=== PATIENT | female | born 1960 | race Caucasian/White ===

== ENCOUNTER 2017-12-31 11:00 | Outpatient (RCR) | payer MEDICAID, SELFPAY ==
--- NOTE | 2017-11-04 07:33 | HP.PTEVAL ---
Patient's Visit Information PRASHANT MAZARIEGOS is a 57 year old F referred to Physical Therapy by RAVEN ASKEW with a diagnosis of L2 compression fx, C7 vertebral fx, R ilium fracture, lateral mass fx C1. Date of Evaluation: 10/24/17 Physical Therapist: Mendoza Pinto - Visit Plan Frequency: 2x /Week Duration: 4 Weeks Plan: Start with general mobility, postural strength, UE/LE strengthening in aquatic setting. Progress as tolerated. May use modalities on land if needed. - Subjective Subjective: Pt. is here today for her initial evaluation with diagnosis L2 compression fx, C7 vertebral fracture, R ilium fracture, and lateral mass fracture of C1. Pt. fell down her stairs on 07/05/17. Pt. was then in a senior care facility for ~3 months. PT. reports being in a cervical collar for most of that time. She went back home ~2 weeks ago. Pt. lives along currently. She is able to shower independently and complete all ADLs. Pt. is not completeing IADLS currently, except for just starting to do dishes. Pt. does not drive. She is R hand dominant. Pt. continues to report increased R sided cervical spine pain. She denies N/T in either UE/LEs. Pt. reports no giveout of UE/LEs. Pt. is concerned with her amount of fatigue. She reported minimal mobility while at longterm. Pt. arrives today without AD. Pt. is hopeful to reduce symptoms in order to get back to all recreational and ADLs without issues. Pt. is to have MRI next week on cervical spine. - Pain R side of cervical spine Pain Intensity (Out of 10): 6 Pain Intensity Range: 4, 8 - Objective POSTURE: Pt. FH posture, increased thoracic kyphosis, increased L shoulder height. has increased lateral trunk lean to R side. Pt. has R cervical posture with slight flexion. Pt. has difficulty correcting due to pain. PALPATION: Pt. has increased tenderness to palpation of R side of cerivcal spine, R side of thoracic spine, R shoulder and lumbar spine throughout bilaterally. NEUROLOGICAL: Pt. has normal sensation throughout bilateral UE/LEs. Pt. has 2+ bicpes/triceps/patellar/achilles DTR bilaterally. Pt. is able to rise on heels and toes, but does require balanace aide to complete. ROM: cervical spine: flexion- min loss increase NW, ext mod/max loss increase NW, SB mod loss bilat increase NW, rotation mod loss bilat increase NW. Lumbar spine: flexion min/nil loss NE, ext mod loss increase NW, SB min loss bilat increase NW, rotation min loss bilat increase NW. MMT: RLE- ankle 5/5 throughout; knee- ext 4+/5, flexion 4/5; hip- flexion 4/5 increase NW, abd 4/5 increase NW, ext 4/5. LLE- ankle 5/5 throughout; knee- ext 4/5, flexion 4/5; hip- flexino 4/5 increase NW, abd 4/5 increase NW, ext 4/5 increase NW. RUE- wrist 5/5 throughout; elbow- flexion 4+/5, ext 4+/5; shoulder- flexion 4/5, abd 4/5, ER 4/5, IR 4/5, ext 4/5. LUE- wrist 5/5 throughout; elbow- flexion 4+/5, ext 4+/5; shoulder- flexion 4/5, abd 4/5, ER 4/5, IR 4/5, ext 4/5. 4/5 generally with cervical isometrics. - Goals Goal 1:: Pt. to be I with HEP. Goal Time Frame: 4-6 Weeks Goal 2:: Pt. to demonstrate improved cervical and thoracic posture in stance throughout therapy session. Goal Time Frame: 4-6 Weeks Goal 3:: Pt. to ambulate unlimited distances without increase in symptoms with normalized gait pattern. Goal Time Frame: 4-6 Weeks Goal 4:: Pt. to report decreased pain in cervical spine and lumbar spine to 2/10 allowing increased quality of life. Goal Time Frame: 6-8 Weeks Goal 5:: Pt. to have increased BUE and LE strength by 1/2 grade of all effected - Rehabilitation Potential Physical Therapy Diagnosis: Pt. has signs and symptoms consistent with L2 compression fx, C7 vertebral fx, R ilium fracture, lateral mass fx C1 with subsequent hypombility of lumbar and cervical spine; general weakness and difficulty with functional mobility. She would benefit from PT initially to progress general strength, gait progress, core strength, UE/LE strength. Pt. to initially start in aquatic setting to progress. Rehabilitation Potential: Fair - Anticipated Interventions Patient/Client Instruction: Educate patient on: Condition, Plan of Care, Risk Factors, Benefits of Fitness Program For the Purpose of:: To improve safety, To improve health and function, To foster healthy habits, To improve decision making, To facilitate caregiver knowledge, To improve self management, To prevent re-injury, To improve ability to perform tasks related to life management, To improve tolerance to ADL's Therapeutic Exercise to Include: Strength training, Power training, Body mechanics, Postural training, Flexibilty training, In an aquatic setting, Passive ROM, Active ROM For the Purpose of:: To decrease pain, To decrease swelling/inflammation, To increase ROM, To improve nutrient delivery to tissue, To increase oxygenation perfusion, To improve muscle performance and motor function, To improve ability to perform ADL's, To improve gait and locomotor functions, To improve health of tissue, To decrease soft tissue restriction, To increase flexibility/ROM IF ES: Yes Cryotherapy (ice pack, ice massage): Yes Thermo therapy (hot pack): Yes Ultrasound (thermal/non thermal): Yes For the Purpose of:: To decrease pain, To decrease swelling/inflammation, To increase ROM Thank you for the opportunity to evaluate your patient. For Medicare and Medicare HMO plans, please review the plan of care and approve it. It will need to be FAXED BACK to us at [phone] for Medicare purposes. Please let me know if there are questions or concerns regarding this plan of care. Physician Signature: Date:
--- NOTE | 2017-12-01 09:00 | HP.PTREVAL_ITS ---
RAVEN ASKEW, It has been my pleasure to treat PRASHANT MAZARIEGOS over the last 8 visits for L2 compression fx, C7 vertebral fx, R ilium fracture, lateral mass fx C1. Please see the progress note below for an update on the physical therapy plan of care! Subjective: Pt. reports I am doing a lot better. I feel like I am getting closer to my old self. Pt. reports being compliant with her HEP as indicated. Pt. is concerned about her limited neck mobility. Objective/Function: ROM- cervical spine- flexion min loss increase NW, ext min/ mod loss increase NW, Rotation R mod loss stiffnes, rotaton L mod loss stiffness , SB mod/max loss stiffness. LUMBAR ROM- flexion min loss NE, ext min loss NE, rotation min loss bilat NE. MMT- RUE- wrist/elbow 5/5; shoulder- flexion 4+/5, abd 4+/5, ext 5/5, ER 4+/5, IR 5/5. LUE- wrist/elbow 5/5 throughout; shoulder- flexion 4+/5, abd 4+/5, ext 5/5, ER 4+/5, IR 5/5. BLEs 5/5 throughout; except- hip- flexion 4/5, abd 4/5. GAIT: Pt. has improved gait pattern, increased tempo , no step length difference. Pt. has slight flexed posture in with gait, but has improved. Pt. continues to have limited cervical spine strength and ROM. Pt. would benefit from cervical spine ROM progress, cervical spine isometrics and scapular stability exercises. Plan Plan: POC extended 2x a week for 4 weeks on land PT to progress cervical spine ROM, cervical spine isometrics, periscapular strengthening/postural stability. Goals Goal 1:: Pt. to be I with HEP. Goal Time Frame: 4-6 Weeks Goal Progress: Goal Met Goal 2:: Pt. to demonstrate improved cervical and thoracic posture in stance throughout therapy session. Goal Time Frame: 4-6 Weeks Goal Progress: Progressing Goal 3:: Pt. to ambulate unlimited distances without increase in symptoms with normalized gait pattern. Goal Time Frame: 4-6 Weeks Goal Progress: Goal Met Goal 4:: Pt. to report decreased pain in cervical spine and lumbar spine to 2/ 10 allowing increased quality of life. Goal Time Frame: 6-8 Weeks Goal Progress: Progressing Goal 5:: Pt. to have increased BUE and LE strength by 1/2 grade of all effected Goal Progress: Progressing Anticipated Interventions Patient/Client Instruction: Educate patient on: Condition, Plan of Care, Risk Factors, Benefits of Fitness Program For the Purpose of:: To improve safety, To improve health and function, To foster healthy habits, To improve decision making, To facilitate caregiver knowledge, To improve self management, To prevent re-injury, To improve ability to perform tasks related to life management, To improve tolerance to ADL's Therapeutic Exercise to Include: Strength training, Power training, Body mechanics, Postural training, Flexibilty training, In an aquatic setting, Passive ROM, Active ROM For the Purpose of:: To decrease pain, To decrease swelling/inflammation, To increase ROM, To improve nutrient delivery to tissue, To increase oxygenation perfusion, To improve muscle performance and motor function, To improve ability to perform ADL's, To improve gait and locomotor functions, To improve health of tissue, To decrease soft tissue restriction, To increase flexibility/ROM IF ES: Yes Cryotherapy (ice pack, ice massage): Yes Thermo therapy (hot pack): Yes Ultrasound (thermal/non thermal): Yes For the Purpose of:: To decrease pain, To decrease swelling/inflammation, To increase ROM Please do not hesitate to contact me at [phone] by phone or Fax: if you have questions or concerns regarding this new plan of care! Sincerely, Mendoza Pinto
--- NOTE | 2017-12-31 11:29 | HP.PTDCSUM_ITS ---
HP - PT D/C Summary It has been my pleasure to treat PRASHANT MAZARIEGOS under orders from RAVEN ASKEW, for the diagnosis of L2 compression fx, C7 vertebral fx, R ilium fracture, lateral mass fx C1 for a total of 16 visit(s). Discharge Date: 12/31/17 Please see the following information for a summary of their discharge status. - Subjective Subjective: Pt. reprots overall doing better, pt. reports being 80% better overall. Pt. is back to completeing all ALDs without issues. Pt. is getting back to work setting, looking for work. Pt. is doing well and is pleased. - Pain R side of cervical spine Pain Intensity (Out of 10): 0 Back Pain Intensity (Out of 10): 0 HeadAche Pain Intensity (Out of 10): 0 - Overall Improvement % Improvement: 80 - Objective Objective/Function: Pt. ambulated 2000ft. in PT this date without issues with normal tempo, pt. reports walking upto 1 mile at a time often to religion. ROM: lumbar spine- flexion min/nil loss NE, ext mod loss increase NW, SB nil loss NE bilat, rotation nil/min loss NE. Cervical spine- flexion min loss, ext min/mod loss, rotation mod loss bilat. No pain noted, but stiffness described. MMT: 5/ 5 throughout bilateral LEs and UEs. - Goals Goal 1:: Pt. to be I with HEP. Goal Progress: Goal Met Goal 2:: Pt. to demonstrate improved cervical and thoracic posture in stance throughout therapy session. Goal Progress: Goal Met Goal 3:: Pt. to ambulate unlimited distances without increase in symptoms with normalized gait pattern. Goal Progress: Goal Met Goal 4:: Pt. to report decreased pain in cervical spine and lumbar spine to 2/ 10 allowing increased quality of life. Goal Progress: Goal Met Goal 5:: Pt. to have increased BUE and LE strength by 1/2 grade of all effected Goal Progress: Progressing - Plan Plan: Pt. to be DC to HEP at this point in time. - D/C Information Discharge Comments: Pt. has progressed with with stability and ROM of her lumbar and cervical spine. Pt. does have continued stiffness greatest in her cervical spine. Pt. has progressed with general mobility as well. She does get some tightness in lumbar spine with increased activities, but she is able to complete all ADls without limiations. Pt. is independent with her HEP and will be DC to HEP at this point in time. If there are questions or concerns regarding this patient's physical therapy, please feel free to call me at [phone]. Thank you for the referral of this patient. Sincerely, Mendoza Pinto
== END 2017-12-31 16:27 | disposition home or self-care (01) ==
LOC: PT 11:00
PROVIDERS: Family Provider Nurse Practitioner Family; PCP Nurse Practitioner Family
DX: S32.020D Wedge compression fracture of second lumbar vertebra, subsequent encounter for fracture with routine healing (principal); S12.600D Unspecified displaced fracture of seventh cervical vertebra, subsequent encounter for fracture with routine healing; S32.301D Unspecified fracture of right ilium, subsequent encounter for fracture with routine healing; S12.040D Displaced lateral mass fracture of first cervical vertebra, subsequent encounter for fracture with routine healing
CPT/HCPCS: 97110; 97113; 97140; 97162; 97530

== ENCOUNTER → 2018-06-30 10:12 | Outpatient (CLI) | payer BC, SELFPAY ==
[2018-06-30 17:45] VITALS: BMI 27.4
[2018-07-01 10:54] LABS: Color, Urine Yellow (Yellow); Glucose, Dipstick Normal (Normal); Ketone-Dipstick 50 mg/dl (Negative); Leukocyte Esterase-Dipstick 100 /ul (Negative); Nitrite-Dipstick Positive (Negative); Occult Blood-Urine 150 /ul (Negative); Protein-Dipstick 30 mg/dl (Negative); Specific Gravity, Urine 1.025 (1.002-1.030); Urine Bilirubin Dipstick Negative (Negative); Urine Clarity Cloudy (Clear); Urine Urobilinogen Normal (Normal)
[2018-07-01 10:59] LABS: Bacteria 4+ /hpf (None Seen); Red Blood Cells-Urine 0-5 SEEN /hpf (0-5); Squamous Epithelial Cells - UA 0-5 SEEN /hpf (5-10); White Blood Cells 5-10 SEEN /hpf (0-5)
[2018-07-01 11:01] LABS: Mucous, Urine RARE /hpf (<or=2+)
--- OUTSIDE RECORDS SUMMARY | 2018-10-02 13:57 | XMS RPT_ITS ---
:1960 Author Organization [facility] Care Team Providers Name Role Phone SATYAN, CHINEDU BINDIGANAVALE Referring Unavailable SATYAN, CHINEDU BINDIGANAVALE Referring Unavailable SATYAN, CHINEDU BINDIGANAVALE Referring Unavailable SATYAN, CHINEDU BINDIGANAVALE Referring Unavailable SATYAN, CHINEDU BINDIGANAVALE Referring Unavailable MAXIM BERGER Attending Unavailable SEGUNDO BERGER (PA-C) Referring Unavailable RAVEN CHILD Attending Unavailable SATYAN, CHINEDU BINDIGANAVALE Referring Unavailable MOLLY WEN Attending Unavailable MOLLY WEN Referring Unavailable Grady, Va Primary Care Unavailable Gokul Reveles Attending Unavailable Grady, Va Referring Unavailable Gokul Reveles Attending Unavailable Abdirizak Goukl Referring Unavailable Buffy, Va Primary Care Unavailable MAXIM BERGER Attending Unavailable [facility] Referring Unavailable [facility] Primary Care Unavailable SATYAN, CHINEDU B Referring Unavailable [facility] Primary Care Unavailable SATYAN, CHINEDU B Referring Unavailable [facility] Primary Care Unavailable SATYAN, CHINEDU B Referring Unavailable [facility] Primary Care Unavailable SATYAN, CHINEDU B Referring Unavailable [facility] Primary Care Unavailable SATYAN, CHINEDU B Referring Unavailable [facility] Primary Care Unavailable SATYAN, CHINEDU B Referring Unavailable [facility] Primary Care Unavailable PROBLEMS PROBLEMS DATE TYPE CONDITION / CODE ATTENDING STATUS SOURCE 07/01/2018 Unknown R10.9 - Gokul Reveles Active [place] Unspecified Community abdominal pain / Hospital R10.9(ICD-10) Repository 12/31/2017 Unknown S32.020D - [place] MOLLY WEN Active [place] compression [facility] fracture of second Hospital lumbar vertebra, Repository subsequent encounter for fracture with routine healing / S32.020D(ICD-10) 10/30/2017 Active [place] compression NA Active [facility] fracture of second Clinic Main lumbar vertebra, [place] subsequent Repository encounter for fracture with routine healing / S32.020D(ICD-10) 10/30/2017 Active Unspecified NA Active [facility] displaced fracture Clinic Main of seventh [place] cervical vertebra, Repository initial encounter for closed fracture / S12.600A(ICD-10) 10/30/2017 Active Unspecified NA Active [facility] fracture of right Clinic Main ilium, subsequent [place] encounter for Repository fracture with routine healing / S32.301D(ICD-10) 10/30/2017 Active Displaced lateral NA Active [facility] mass fracture of Clinic Main first cervical [place] vertebra, initial Repository encounter for closed fracture / S12.040A(ICD-10) 09/04/2017 Active Unspecified MAXIM BERGER Active [facility] fracture of the Clinic Other lower end of right [place] radius, subsequent Repository encounter for closed fracture with routine healing / S52.501D(ICD-10) 09/04/2017 Active Unspecified MAXIM BERGER Active [facility] fracture of Clinic Other unspecified pubis, [place] subsequent Repository encounter for fracture with routine healing / S32.509D(ICD-10) 09/04/2017 Admitting Unknown / MAXIM BERGER Active [place] [facility] diagnosis UNK(Unknown) [facility] Repository 09/01/2017 Active Unspecified NA Active [facility] nondisplaced Clinic Other fracture of first [place] cervical vertebra, Repository initial encounter for closed fracture / S12.001A(ICD-10) 09/01/2017 Active [place] compression NA Active [facility] fracture of third Clinic Other lumbar vertebra, [place] initial encounter Repository for closed fracture / S32.030A(ICD-10) 08/18/2017 Active Unknown / NA Active [facility] UNK(Unknown) Clinic Other [place] Repository PROCEDURES PROCEDURES No Procedure Records FoundRESULTS RESULTS URINALYSIS, COMPLETE Collected: 07/01/2018 Status: F Source: [place] 10:36 AM [facility] REPOSITORY Order Comment: How was Urine Obtained? CLEAN CATCH TYPE CODE TESTS RESULT OUT OF RANGE REFERENCE UNITS LAB L400.3000 Yellow COLOR Normal Yellow LAB L400.3050 Clear Normal CLARITY Cloudy LAB L400.3200 Normal mg/dl Normal GLUCOSE, UR Normal LAB L400.3300 Negative mg/dL Normal BILIRUBIN URINE Negative LAB L400.3400 Negative mg/dl High 50 KETONE UR LAB L400.3465 1.002-1.030 Normal SP.GR. DIPSTX 1.025 LAB L400.3550 5.0 - 8.0 pH UR Normal 5.0 LAB L400.3600 Negative mg/dl High PROT 30 DIPSTX LAB L400.3700 Normal mg/dl Normal UROBILI Normal LAB L400.3750 Negative High NITRITE UR Positive LAB L400.3780 Negative /ul High OCCULT BLOOD-UR 150 LAB L400.3800 Negative /ul High LEUK ESTERASE 100 LAB L400.4050 0-5 /hpf WBC Normal 5-10 SEEN LAB L400.4100 0-5 /hpf Normal RBC-UA 0-5 SEEN LAB L400.4150 5-10 /hpf SQUAM Normal EPI 0-5 SEEN LAB L400.4300 None Seen /hpf 4+ Normal BACTERIA LAB L400.4350 <or=2+ /hpf Normal MUCUS, URINE RARE Performed By: #### L400.0001 #### [facility] [address] [place], [address] Observed: 07/01/2018 Status: F Source: [place] CULTURE, URINE 10:36 AM [facility] REPOSITORY Urine Culture ORGANISM 1: Presumptive E. coli [place] Count >100,000 Presumptive E. coli: REACTION Amoxacillin/Clavulanic Acid $ <=2 S Ampicillin $ 4 S Ampicillin/Sulbactam $ <=2 S Cefazolin $ <=4 S Cefepime $ <=1 S Ceftriaxone $ <=1 S Ciprofloxacin $ <=0.25 S ESBL - Ertapenim $$$ <=0.5 S Gentamicin $ <=1 S Imipenem *NF <=0.25 S Levofloxacin $ <=0.12 S Nitrofurantoin $ <=16 S Piperacillin/Tazobactam $$ <=4 S Tobramycin $ <=1 S Trimethoprim/Sulfametho $ <=20 S (NF) indicates non-formulary drug at [facility]. Approval by Infectious Disease Specialist required before non-formulary drugs may be ordered and/or dispensed. Performed By: #### M100.0650 #### [facility] [address] [place], [address] URGENT CARE VISIT Observed: 06/30/2018 Status: F Source: [place] REPORT 7:09 PM [facility] REPOSITORY [facility] [address] [place] [address] OFFICE VISIT Date of Service: 06/30/18 MR#: [id number] Acct: [id number] Name: PRASHANT WHITNEY Rep #: [id number] : 1960 Provider: Gokul ROGERS Age/Sex: 58/F Location: [facility] [place] Status: Signed Intake Vital Signs06/30/18 Height 5 ft 6 in 06/30/18 Weight: 170 lb 06/30/18 Body Mass Index (BMI) 27.4 06/30/18 Blood Pressure 116/74 Intake Visit Reasons: PERSISTANT RT SIDE FLANK PAIN Chief Complaint: FLANK PAIN Petal Cutter Required: No Accompanied by: SELF Is patient in pain?: Yes Allergies No Known Allergies Allergy (Verified 06/30/18 17:46) Medications Buspirone HCl 10 mg PO TID PRN PRN 07/05/17 [History Confirmed 06/30/18] aripiprazole 2 mg tablet 2 mg PO DAILY 06/30/18 [History Confirmed 06/30/18] naproxen sodium 220 mg capsule 220 mg PO BID PRN 06/30/18 [History Confirmed 06/30/18] PFSH Medical History Diarrhea (Acute) HISTORYOF HIP REPLACEMENT (Acute) Incontinence (Acute) NECK/BACK PAIN (Acute) Surgical History History of back surgery (Acute) History of breast surgery (Acute) Social History Smoking Status: Never smoker HPI HPI Chief Complaint: FLANK PAIN Details: PRASHANT WHITNEY, is a 58 F who presents to the office today for complaint of intermittent right flank pain for the past 3 weeks. Patient states that the pain is sharp at times causing her to have 7-8 out of 10 pain and then resolves on its own. She reports having similar issues like this approximate 1 year ago and had a CAT scan which showed no findings. She states that the episode resolved on its own without any treatment. She denies any dysuria, hematuria or abdominal/pelvic pain. No fever, chills, sweats. No nausea, vomiting, diarrhea. No other associated symptoms or alleviating/aggravating factors. ROS Const Constitutional: No chills, fever(s), fatigue or abnormal sleep pattern Resp Respiratory: No shortness of breath or chest congestion Cardio Cardiology: No chest pain at rest, chest pain with exertion or shortness of breath Genitourinary-Female: Positive for side pain; no difficulty urinating, burning urination, painful urination, urinary frequency, urinary urgency, blood in urine or pelvic pain Musc Musculoskeletal: Positive for other (Flank pain) Skin Skin: No wounds or lesions Neuro Neurology: No behavioral changes or confusion Psych Psychiatric: No behavioral changes, No confusion, No abnormal sleep pattern Endo Endocrine: No fatigue Exam Const General: cooperative, healthy appearing Resp Effort AND Inspection: normal respiratory effort Auscultation: Bilateral: Clear to Auscultation Cardio Palpation: normal PMI Rate: regular rate Rhythm: regular rhythm GI Inspection: normal to inspection Auscultation: normal bowel sounds Palpation: soft, no hepatosplenomegaly General: No CVA tenderness Skin General: no rashes or lesions noted Neuro General: alert, CN's II-XI intact bilaterally Psych Appearance: grossly normal Mental Status: mental status grossly normal Results [facility] Office Urine Color Yellow Last Edit by Alexandra Solomon on 06/30/18 18:29 Assessment AND Plan Problems 1. Acute right flank pain R10.9 Status Acute Plan UA negative for leukocytes however there is some blood and ketones. Likely due to kidney stone however we will send the urine off for culture. Patient given information for [place] [facility] for follow-up patient advised to use ibuprofen or Tylenol as needed for flank pain as well as to increase fluids. Patient advised of potential red flags and when appropriate to report to the ED. Patient verbalized understanding and agreement with all the above. Orders Orders: Referrals: Coding Level of Care Code Off vis,new,level 3 Diagnoses Acute right flank pain R10.9 06/30/18 1705 <Electronically signed by Gokul ROGERS> Date Gokul ROGERS Cosigner Signature: Date (if applicable) CC: PT D/C SUMMARY (1) Observed: 12/31/2017 Status: F Source: [place] 11:29 AM [facility] REPOSITORY [facility] [address] [place] [address] Fax REHABILITATION SERVICES DISCHARGE SUMMARY MR#: [id number] Acct: [id number] Name: PRASHANT WHITNEY Rep #: [id number] : 1960 57 From: Mendoza Pinto DPT Referring : Status: REG RCR Insurance: [facility] [employer] INSURANCE HP - PT D/C Summary It has been my pleasure to treat PRASHANT WHITNEY under orders from RAVEN CHILD, for the diagnosis of L2 compression fx, C7 vertebral fx, R ilium fracture, lateral mass fx C1 for a total of 16 visit(s). Discharge Date: 12/31/17 Please see the following information for a summary of their discharge status. - Subjective Subjective: Pt. reprots overall doing better, pt. reports being 80% better overall. Pt. is back to completeing all ALDs without issues. Pt. is getting back to work setting, looking for work. Pt. is doing well and is pleased. - Pain R side of cervical spine Pain Intensity (Out of 10): 0 Back Pain Intensity (Out of 10): 0 HeadAche Pain Intensity (Out of 10): 0 - Overall Improvement % Improvement: 80 - Objective Objective/Function: Pt. ambulated 2000ft. in PT this date without issues with normal tempo, pt. reports walking upto 1 mile at a time often to gnosticism. ROM: lumbar spine- flexion min/nil loss NE, ext mod loss increase NW, SB nil loss NE bilat, rotation nil/min loss NE. Cervical spine- flexion min loss, ext min/mod loss, rotation mod loss bilat. No pain noted, but stiffness described. MMT: 5/5 throughout bilateral LEs and UEs. - Goals Goal 1:: Pt. to be I with HEP. Goal Progress: Goal Met Goal 2:: Pt. to demonstrate improved cervical and thoracic posture in stance throughout therapy session. Goal Progress: Goal Met Goal 3:: Pt. to ambulate unlimited distances without increase in symptoms with normalized gait pattern. Goal Progress: Goal Met Goal 4:: Pt. to report decreased pain in cervical spine and lumbar spine to 2/10 allowing increased quality of life. Goal Progress: Goal Met Goal 5:: Pt. to have increased BUE and LE strength by 1/2 grade of all effected Goal Progress: Progressing - Plan Plan: Pt. to be DC to HEP at this point in time. - D/C Information Discharge Comments: Pt. has progressed with with stability and ROM of her lumbar and cervical spine. Pt. does have continued stiffness greatest in her cervical spine. Pt. has progressed with general mobility as well. She does get some tightness in lumbar spine with increased activities, but she is able to complete all ADls without limiations. Pt. is independent with her HEP and will be DC to HEP at this point in time. If there are questions or concerns regarding this patient's physical therapy, please feel free to call me at [phone]. Thank you for the referral of this patient. Sincerely, Mendoza Pinto <Electronically signed by Mendoza Pinto DPT> 12/31/17 1129 CC: LADLE REPAIRER-BUTCH Baer; OUT OF TOWN DOCTOR CLS Signed RE-EVALUATION - PT (1) Observed: 12/01/2017 Status: F Source: [place] 9:00 AM [facility] REPOSITORY [facility] [address] [place], [place] [address] Fax REEVALUATION / MEDICARE RECERTIFICATION PHYSICAL THERAPY MR#: [id number] Acct: [id number] Name: PRASHANT WHITNEY Rep #: [id number] : 1960 57 From: Mendoza Pinto DPT Referring : Status: REG RCR Insurance: [facility] [employer] SELF PAY INSURANCE RAVEN CHILD, It has been my pleasure to treat PRASHANT WHITNEY over the last 8 visits for L2 compression fx, C7 vertebral fx, R ilium fracture, lateral mass fx C1. Please see the progress note below for an update on the physical therapy plan of care! Subjective: Pt. reports I am doing a lot better. I feel like I am getting closer to my old self. Pt. reports being compliant with her HEP as indicated. Pt. is concerned about her limited neck mobility. Objective/Function: ROM- cervical spine- flexion min loss increase NW, ext min/mod loss increase NW, Rotation R mod loss stiffnes, rotaton L mod loss stiffness, SB mod/max loss stiffness. LUMBAR ROM- flexion min loss NE, ext min loss NE, rotation min loss bilat NE. MMT- RUE- wrist/elbow 5/5; shoulder- flexion 4+/5, abd 4+/5, ext 5/5, ER 4+/5, IR 5/5. LUE- wrist/elbow 5/5 throughout; shoulder- flexion 4+/5, abd 4+/5, ext 5/5, ER 4+/5, IR 5/5. BLEs 5/5 throughout; except- hip- flexion 4/5, abd 4/5. GAIT: Pt. has improved gait pattern, increased tempo, no step length difference. Pt. has slight flexed posture in with gait, but has improved. Pt. continues to have limited cervical spine strength and ROM. Pt. would benefit from cervical spine ROM progress, cervical spine isometrics and scapular stability exercises. Plan Plan: POC extended 2x a week for 4 weeks on land PT to progress cervical spine ROM, cervical spine isometrics, periscapular strengthening/postural stability. Goals Goal 1:: Pt. to be I with HEP. Goal Time Frame: 4-6 Weeks Goal Progress: Goal Met Goal 2:: Pt. to demonstrate improved cervical and thoracic posture in stance throughout therapy session. Goal Time Frame: 4-6 Weeks Goal Progress: Progressing Goal 3:: Pt. to ambulate unlimited distances without increase in symptoms with normalized gait pattern. Goal Time Frame: 4-6 Weeks Goal Progress: Goal Met Goal 4:: Pt. to report decreased pain in cervical spine and lumbar spine to 2/10 allowing increased quality of life. Goal Time Frame: 6-8 Weeks Goal Progress: Progressing Goal 5:: Pt. to have increased BUE and LE strength by 1/2 grade of all effected Goal Progress: Progressing Anticipated Interventions Patient/Client Instruction: Educate patient on: Condition, Plan of Care, Risk Factors, Benefits of Fitness Program For the Purpose of:: To improve safety, To improve health and function, To foster healthy habits, To improve decision making, To facilitate caregiver knowledge, To improve self management, To prevent re-injury, To improve ability to perform tasks related to life management, To improve tolerance to ADL's Therapeutic Exercise to Include: Strength training, Power training, Body mechanics, Postural training, Flexibilty training, In an aquatic setting, Passive ROM, Active ROM For the Purpose of:: To decrease pain, To decrease swelling/inflammation, To increase ROM, To improve nutrient delivery to tissue, To increase oxygenation perfusion, To improve muscle performance and motor function, To improve ability to perform ADL's, To improve gait and locomotor functions, To improve health of tissue, To decrease soft tissue restriction, To increase flexibility/ROM IF ES: Yes Cryotherapy (ice pack, ice massage): Yes Thermo therapy (hot pack): Yes Ultrasound (thermal/non thermal): Yes For the Purpose of:: To decrease pain, To decrease swelling/inflammation, To increase ROM Please do not hesitate to contact me at [phone] by phone or if you have questions or concerns regarding this new plan of care! Sincerely, Mendoza Pinto <Electronically signed by Mendoza Pinto DPT> 12/01/17 0900 CC: TRACIE Baer; OUT OF TOWN DOCTOR CLS Signed For Medicare only, by signing this I certify the plan of care. Physicians Signature Date CNPN Observed: 11/21/2017 Status: COMPLETED Source: [place] 12:00 AM [facility] REPOSITORY Telephone (NIQ) PRASHANT WHITNEY ([id number]) 1960 F Date Time Provider Department 11/21/17 RAVEN CHILD During your visit today, we recorded the following information about you: Mely Avelar 11/21/2017 9:12 AM Signed Please call patient [phone] with her MRI results and next step. Pino Anne (Ramos) 11/21/2017 9:59 AM Signed Patient was called back and given the radiologist results. Per Dr. Child's note she is to have follow up to go over the results and discuss treatment options. Encouraged patient to schedule and make her follow up appointment. Allergies As of Date: 11/21/2017 (No Known Allergies) Date Reviewed: 10/15/2017 Reviewed by: Brandy Koch Ma - Fully Assessed Reason for Visit: Results - Mri [3561] Prescriptions as of 11/21/2017 Sig: ARIPIPRAZOLE 10 MG TABLET OXYCODONE-ACETAMINOPHEN 5 MG-* ENOXAPARIN 30 MG/0.3 ML SUBCU* Inject 0.3 mL subcutaneously * SENNOSIDES 8.6 MG-DOCUSATE SO* Take 1 tablet by mouth twice * CYCLOBENZAPRINE 5 MG TABLET Take 1 tablet by mouth three * ABILIFY ORAL Take 10 mg by mouth once xavi* BUSPAR ORAL Take 10 mg by mouth three michael* Problem List As Of Date 11/21/2017 Noted Resolved Fall [W19.XXXA] INVALID FOR*07/10/2017 Lateral mass fracture of first cervical vertebr*INVALID FOR* Closed fracture of seventh cervical vertebra (H*INVALID FOR* Closed wedge compression fracture of eighth tho*INVALID FOR* Sternal fracture [S22.20XA] INVALID FOR* Fracture of one rib of right side [S22.31XA] INVALID FOR* More... Fracture of multiple pubic rami (HCC) [S32.599A]INVALID FOR* More... Closed fracture of ilium (HCC) [S32.309A] INVALID FOR* Fracture of distal end of right radius [S52.501*INVALID FOR* Trauma [T14.90XA] INVALID FOR*07/10/2017 Encounter Status:Closed by PINO ANNE on 11/21/17 CNPN Observed: 11/14/2017 Status: COMPLETED Source: [place] 12:00 AM [facility] Telephone (NIQ) DELILAHPRASHANT ([id number]) 1960 F Date Time Provider Department 11/14/17 RAVEN CHILD NIQ During your visit today, we recorded the following information about you: Eufemia PhoenixKan 11/14/2017 10:57 AM Signed Patient calling in stating she would like to obtain the results form her MRI. According to Dr. Child's note, review of images would happen on F/U visit, however patient is requesting them over the phone. Please call patient and inform them of results if necessary. [phone] (home) Thank you, Segundo Olea (Michela) 11/14/2017 1:50 PM Signed Per revised protocols, MRI and test resultsshould be only given over the phone if indicated in the office note. If office note indicates that patient is to follow-up in office with Danyell to discuss findings then patient needs to make follow-up in office. I did not call patient. Does not appear the patient has a results follow-up with Danyell at this time. Please process accordingly. Segundo Berger PA-C Allergies As of Date: 11/14/2017 (No Known Allergies) Date Reviewed: 10/15/2017 Reviewed by: Brandy Koch Ma - Fully Assessed Reason for Visit: Results [95] Prescriptions as of 11/14/2017 Sig: ARIPIPRAZOLE 10 MG TABLET OXYCODONE-ACETAMINOPHEN 5 MG-* ENOXAPARIN 30 MG/0.3 ML SUBCU* Inject 0.3 mL subcutaneously * SENNOSIDES 8.6 MG-DOCUSATE SO* Take 1 tablet by mouth twice * CYCLOBENZAPRINE 5 MG TABLET Take 1 tablet by mouth three * ABILIFY ORAL Take 10 mg by mouth once xavi* BUSPAR ORAL Take 10 mg by mouth three michael* Problem List As Of Date 11/14/2017 Noted Resolved Fall [W19.XXXA] INVALID FOR*07/10/2017 Lateral mass fracture of first cervical vertebr*INVALID FOR* Closed fracture of seventh cervical vertebra (H*INVALID FOR* Closed wedge compression fracture of eighth tho*INVALID FOR* Sternal fracture [S22.20XA] INVALID FOR* Fracture of one rib of right side [S22.31XA] INVALID FOR* More... Fracture of multiple pubic rami (HCC) [S32.599A]INVALID FOR* More... Closed fracture of ilium (HCC) [S32.309A] INVALID FOR* Fracture of distal end of right radius [S52.501*INVALID FOR* Trauma [T14.90XA] INVALID FOR*07/10/2017 Encounter Status:Closed by SEGUNDO BERGER PA-C on 11/14/17 INITAL EVALUATION (1) Observed: 11/04/2017 Status: F Source: [place] - PT 7:34 AM [facility] REPOSITORY [facility] [address] [place] [address] [address] [place], [place] [address] Fax REHABILITATION SERVICES INITIAL EVALUATION MR#: [id number] Acct: [id number] Name: PRASHANT WHITNEY Rep #: [id number] : 1960 57 From: Mendoza Pinto DPT Referring : Status: REG RCR Insurance: [facility] [employer] SELF PAY INSURANCE Patient's Visit Information PRASHANT WHITNEY is a 57 year old F referred to Physical Therapy by RAVEN CHILD with a diagnosis of L2 compression fx, C7 vertebral fx, R ilium fracture, lateral mass fx C1. Date of Evaluation: 10/24/17 Physical Therapist: Mendoza Pinto - Visit Plan Frequency: 2x /Week Duration: 4 Weeks Plan: Start with general mobility, postural strength, UE/LE strengthening in aquatic setting. Progress as tolerated. May use modalities on land if needed. - Subjective Subjective: Pt. is here today for her initial evaluation with diagnosis L2 compression fx, C7 vertebral fracture, R ilium fracture, and lateral mass fracture of C1. Pt. fell down her stairs on 07/05/17. Pt. was then in a [facility] facility [facility]. PT. reports being in a cervical collar for most of that time. She went back home 2 weeks ago. Pt. lives along currently. She is able to shower independently and complete all ADLs. Pt. is not completeing IADLS currently, except for just starting to do dishes. Pt. does not drive. She is R hand dominant. Pt. continues to report increased R sided cervical spine pain. She denies N/T in either UE/LEs. Pt. reports no giveout of UE/LEs. Pt. is concerned with her amount of fatigue. She reported minimal mobility while at halfway. Pt. arrives today without AD. Pt. is hopeful to reduce symptoms in order to get back to all recreational and ADLs without issues. Pt. is to have MRI next week on cervical spine. - Pain R side of cervical spine Pain Intensity (Out of 10): 6 Pain Intensity Range: 4, 8 - Objective POSTURE: Pt. FH posture, increased thoracic kyphosis, increased L shoulder height. has increased lateral trunk lean to R side. Pt. has R cervical posture with slight flexion. Pt. has difficulty correcting due to pain. PALPATION: Pt. has increased tenderness to palpation of R side of cerivcal spine, R side of thoracic spine, R shoulder and lumbar spine throughout bilaterally. NEUROLOGICAL: Pt. has normal sensation throughout bilateral UE/LEs. Pt. has 2+ bicpes/triceps/patellar/achilles DTR bilaterally. Pt. is able to rise on heels and toes, but does require balanace aide to complete. ROM: cervical spine: flexion- min loss increase NW, ext mod/max loss increase NW, SB mod loss bilat increase NW, rotation mod loss bilat increase NW. Lumbar spine: flexion min/nil loss NE, ext mod loss increase NW, SB min loss bilat increase NW, rotation min loss bilat increase NW. MMT: RLE- ankle 5/5 throughout; knee- ext 4+/5, flexion 4/5; hip- flexion 4/5 increase NW, abd 4/5 increase NW, ext 4/5. LLE- ankle 5/5 throughout; knee- ext 4/5, flexion 4/5; hip- flexino 4/5 increase NW, abd 4/5 increase NW, ext 4/5 increase NW. RUE- wrist 5/5 throughout; elbow- flexion 4+/5, ext 4+/5; shoulder- flexion 4/5, abd 4/5, ER 4/5, IR 4/5, ext 4/5. LUE- wrist 5/5 throughout; elbow- flexion 4+/5, ext 4+/5; shoulder- flexion 4/5, abd 4/5, ER 4/5, IR 4/5, ext 4/5. 4/5 generally with cervical isometrics. - Goals Goal 1:: Pt. to be I with HEP. Goal Time Frame: 4-6 Weeks Goal 2:: Pt. to demonstrate improved cervical and thoracic posture in stance throughout therapy session. Goal Time Frame: 4-6 Weeks Goal 3:: Pt. to ambulate unlimited distances without increase in symptoms with normalized gait pattern. Goal Time Frame: 4-6 Weeks Goal 4:: Pt. to report decreased pain in cervical spine and lumbar spine to 2/10 allowing increased quality of life. Goal Time Frame: 6-8 Weeks Goal 5:: Pt. to have increased BUE and LE strength by 1/2 grade of all effected - Rehabilitation Potential Physical Therapy Diagnosis: Pt. has signs and symptoms consistent with L2 compression fx, C7 vertebral fx, R ilium fracture, lateral mass fx C1 with subsequent hypombility of lumbar and cervical spine; general weakness and difficulty with functional mobility. She would benefit from PT initially to progress general strength, gait progress, core strength, UE/LE strength. Pt. to initially start in aquatic setting to progress. Rehabilitation Potential: Fair - Anticipated Interventions Patient/Client Instruction: Educate patient on: Condition, Plan of Care, Risk Factors, Benefits of Fitness Program For the Purpose of:: To improve safety, To improve health and function, To foster healthy habits, To improve decision making, To facilitate caregiver knowledge, To improve self management, To prevent re-injury, To improve ability to perform tasks related to life management, To improve tolerance to ADL's Therapeutic Exercise to Include: Strength training, Power training, Body mechanics, Postural training, Flexibilty training, In an aquatic setting, Passive ROM, Active ROM For the Purpose of:: To decrease pain, To decrease swelling/inflammation, To increase ROM, To improve nutrient delivery to tissue, To increase oxygenation perfusion, To improve muscle performance and motor function, To improve ability to perform ADL's, To improve gait and locomotor functions, To improve health of tissue, To decrease soft tissue restriction, To increase flexibility/ROM IF ES: Yes Cryotherapy (ice pack, ice massage): Yes Thermo therapy (hot pack): Yes Ultrasound (thermal/non thermal): Yes For the Purpose of:: To decrease pain, To decrease swelling/inflammation, To increase ROM Thank you for the opportunity to evaluate your patient. For Medicare and Medicare HMO plans, please review the plan of care and approve it. It will need to be FAXED BACK to us at [phone] for Medicare purposes. Please let me know if there are questions or concerns regarding this plan of care. Physician Signature: Date: <Electronically signed by Mendoza Pinto DPT> 11/04/17 0734 CC: TRACIE Baer; OUT OF TOWN DOCTOR CLS Signed For Medicare only, by signing this I certify the plan of care. Physicians Signature Date MRI THORACIC SPINE WO Observed: 10/30/2017 Status: F Source: [place] IVCON 10:18 AM [facility] * * *Final Report* * * DATE OF EXAM: Oct 30 2017 10:18AM [facility] 0325 - MRI THORACIC SPINE WO IVCON / PROCEDURE REASON: multiple diagnoses * * * * Physician Interpretation * * * * EXAMINATION: MRI LUMBAR SPINE WO IVCON, MRI THORACIC SPINE WO IVCON HISTORY: Wedge compression fracture of second lumbar vertebra, subsequent encounter for fracture with routine healing. Unspecified displaced fracture of seventh cervical vertebra, initial encounter for closed fracture. Unspecified fracture of right ilium, subsequent encounter for fracture with routine healing Displaced lateral mass fracture of first cervical vertebra, initial encounter for closed fracture. TECHNIQUE: Routine lumbosacral and thoracic spine MR protocol without gadolinium. MQ: [id number] COMPARISON: None. RESULT: LUMBAR: Counting reference: Lumbosacral junction. For the purposes of this report, L4-5 is considered the level of the iliac crest. Alignment: Alignment is anatomic. Mild disc space narrowing is noted at L1-2 and T11-12. Disc space height is otherwise relatively well maintained throughout. Bone marrow signal/fracture: No evidence of pathologic marrow infiltration. Mild deformity of the superior endplates of L2 with normal signal intensity characteristics of the marrow otherwise suggesting a remote benign compression fracture. Minimal bony retropulsion along the superior endplate at each level. Incidentally noted is a large hemangioma in the ventral aspect of the L4 vertebral body. Conus: The conus is within normal limits of signal intensity and morphology. Paraspinal soft tissues: Small T2 hyperintense mass in the left kidney on the student services coordinator images likely representing a cyst. T12-L1: Canal and foramina are patent. L1-L2: Minimal bony retropulsion without significant canal stenosis. Neural foramina are widely patent. L2-L3: Canal and foramina are patent L3-L4: Canal and foramina are patent L4-L5: Canal and foramina are patent L5-S1: Small shallow central disc extrusion without significant canal stenosis. Neural foramina remain patent. Sacrum and iliac wings: Well-defined vertically oriented, linear focus of hypointensity in the right sacral ala on T1 and T2 suggesting a subacute sacral insufficiency fracture. THORACIC: Counting reference: Lumbosacral junction. For the purposes of this report, L4-5 is considered the level of the iliac crest. Alignment: Mild thoracolumbar dextroscoliosis with the apex of the curvature at T11 and mild upper thoracic levoscoliosis with the apex at T5. Cord: The thoracic spinal cord is within normal limits of signal intensity and morphology. Bone marrow signal/fracture: Small subtle hypointense focus in the T9 vertebral body on T1 and T2 which is of uncertain significance but the isolated nature would be suspicious for an atypical hemangioma. Moderate to severe loss in height and wedge deformity of the T8 vertebral body, moderate loss in height of T7 and mild deformity of the superior endplates of T6, T5 and T3 with normal signal intensity characteristics of the marrow suggesting multiple remote benign compression fractures. No significant bony retropulsion at any of these levels. No clear evidence of acute fracture in the visualized spine. Thoracic soft tissues: The paraspinal soft tissues are within normal limits. Canal and foramina: Minimal bony retropulsion along the superior endplate of T12 without significant canal stenosis. Thoracic canal and foramina are otherwise patent. IMPRESSION: Multiple remote benign fractures in the thoracic and lumbar spine without evidence of recurrent acute fracture in this region. Suspected subacute sacral insufficiency fracture. Isolated focus of marrow replacement and T9 which is of uncertain significance but likely represents an atypical hemangioma as outlined above. Small central disc extrusion at L5-S1 without significant canal stenosis. Operation Research Analyst: PSCJayesh Transcribe Date/Time: Oct 30 2017 11:11A Dictated by : MAXIM MARC MD This examination was interpreted and the report reviewed and electronically signed by: MAXIM MARC MD on Oct 30 2017 11:24AM EST [id number] MRI LUMBAR SPINE WO Observed: 10/30/2017 Status: F Source: [place] [facility] 10:18 AM [facility] * * *Final Report* * * DATE OF EXAM: Oct 30 2017 10:18AM [facility] 0303 - MRI LUMBAR SPINE WO IVCON / PROCEDURE REASON: multiple diagnoses * * * * Physician Interpretation * * * * EXAMINATION: MRI LUMBAR SPINE WO IVCON, MRI THORACIC SPINE WO IVCON HISTORY: Wedge compression fracture of second lumbar vertebra, subsequent encounter for fracture with routine healing. Unspecified displaced fracture of seventh cervical vertebra, initial encounter for closed fracture. Unspecified fracture of right ilium, subsequent encounter for fracture with routine healing Displaced lateral mass fracture of first cervical vertebra, initial encounter for closed fracture. TECHNIQUE: Routine lumbosacral and thoracic spine MR protocol without gadolinium. MQ: [id number] COMPARISON: None. RESULT: LUMBAR: Counting reference: Lumbosacral junction. For the purposes of this report, L4-5 is considered the level of the iliac crest. Alignment: Alignment is anatomic. Mild disc space narrowing is noted at L1-2 and T11-12. Disc space height is otherwise relatively well maintained throughout. Bone marrow signal/fracture: No evidence of pathologic marrow infiltration. Mild deformity of the superior endplates of L2 with normal signal intensity characteristics of the marrow otherwise suggesting a remote benign compression fracture. Minimal bony retropulsion along the superior endplate at each level. Incidentally noted is a large hemangioma in the ventral aspect of the L4 vertebral body. Conus: The conus is within normal limits of signal intensity and morphology. Paraspinal soft tissues: Small T2 hyperintense mass in the left kidney on the student services coordinator images likely representing a cyst. T12-L1: Canal and foramina are patent. L1-L2: Minimal bony retropulsion without significant canal stenosis. Neural foramina are widely patent. L2-L3: Canal and foramina are patent L3-L4: Canal and foramina are patent L4-L5: Canal and foramina are patent L5-S1: Small shallow central disc extrusion without significant canal stenosis. Neural foramina remain patent. Sacrum and iliac wings: Well-defined vertically oriented, linear focus of hypointensity in the right sacral ala on T1 and T2 suggesting a subacute sacral insufficiency fracture. THORACIC: Counting reference: Lumbosacral junction. For the purposes of this report, L4-5 is considered the level of the iliac crest. Alignment: Mild thoracolumbar dextroscoliosis with the apex of the curvature at T11 and mild upper thoracic levoscoliosis with the apex at T5. Cord: The thoracic spinal cord is within normal limits of signal intensity and morphology. Bone marrow signal/fracture: Small subtle hypointense focus in the T9 vertebral body on T1 and T2 which is of uncertain significance but the isolated nature would be suspicious for an atypical hemangioma. Moderate to severe loss in height and wedge deformity of the T8 vertebral body, moderate loss in height of T7 and mild deformity of the superior endplates of T6, T5 and T3 with normal signal intensity characteristics of the marrow suggesting multiple remote benign compression fractures. No significant bony retropulsion at any of these levels. No clear evidence of acute fracture in the visualized spine. Thoracic soft tissues: The paraspinal soft tissues are within normal limits. Canal and foramina: Minimal bony retropulsion along the superior endplate of T12 without significant canal stenosis. Thoracic canal and foramina are otherwise patent. IMPRESSION: Multiple remote benign fractures in the thoracic and lumbar spine without evidence of recurrent acute fracture in this region. Suspected subacute sacral insufficiency fracture. Isolated focus of marrow replacement and T9 which is of uncertain significance but likely represents an atypical hemangioma as outlined above. Small central disc extrusion at L5-S1 without significant canal stenosis. Operation Research Analyst: MARIA LUZ Transcribe Date/Time: Oct 30 2017 11:11A Dictated by : MAXIM MARC MD This examination was interpreted and the report reviewed and electronically signed by: MAXIM MARC MD on Oct 30 2017 11:24AM EST [id number] PROGRESS Observed: 10/30/2017 Status: COMPLETED Source: [place] 10:11 AM [facility] HNO ID: [id number] Author: Mayra Mueller Service: (none) Author Type: (none) Type: Progress Notes Filed: 10/30/2017 10:11 AM Note Text: Radiology Service Progress Note PATIENT NAME: Prashant Whitney DATE OF SERVICE: October 30, 2017 TIME: 10:11 AM PATIENT IDENTITY VERIFICATION COMPLETED USING TWO (2) METHODS: Patient confirmed name verbally and Date of . PATIENT GENDER DATA: Female. status: : No status: NO. PATIENT RELEVANT IMPLANT DATA REVIEWED: Yes RADIOLOGY DEPARTMENT: MR; Exam(s) Completed: Spine: Thoracic spine and Lumbar spine PERIPHERAL IV DATA: Not applicable SIGNED BY: Mayra Mueller October 30, 2017 10:11 AM PROGRESS Observed: 10/15/2017 Status: COMPLETED Source: [place] 8:45 AM [facility] HNO ID: [id number] Author: Raven Child Service: (none) Author Type: Physician Type: Progress Notes Filed: 10/16/2017 9:18 AM Note Text: SPINE SURGERY NEW PATIENT PCP: No Pcp REFERRING PROVIDER: Self SUBJECTIVE HISTORY OF PRESENT ILLNESS: C7, T3, T7, T8 and L3 compression fractures noted on imaging especially CT since fall in June 2017. Patient also complained of pre-existing right sided lower back pain with out radicular leg pain mention today. Patient did not mention history of brace, physical therapy or injections. Patient states that she is only taking Tylenol or Motrin for pain. Patient indicated that she is quite fatigued throughout the day. Also mentioned that she's been having more neck heaviness. Prashant Whitney is a 57 year old female presenting alone. CHIEF COMPLAINT: Neck, mid back and lower back pain with fractures since fall that occurred on with loss of consciousness which got her admitted to [facility] PRECIPITATING EVENT: Injury at home. DURATION OF SYMPTOMS: Greater Than 3 Months PAIN EVALUATION 10/15/2017 Pain Score: 4 Pain Location: - back and neck Description: Aching;Pulsating Duration Amount of Time: 3 Duration Units: Months Frequency: Intermittent Intervention: Relaxation Comments: sitting on pillows Pain Radiation: Pain does not radiate, Pain does not radiate Aggravating Factors: Flexion, Extension, Rotation, Pushing, Pulling, Reaching, Above shoulder activities, Driving (riding in a car), Entering/exiting a car Alleviating Factors: None Pain Ratio: Pain in the back is greater than in the leg, Pain in the neck is greater than in the arm DERMATOMAL DISTRIBUTION: Not applicable AMBULATORY STATUS: Impaired Community Distances PREVIOUS CONSERVATIVE TREATMENTS: OTC NSAIDS for 3 Months or Greater (Ibuprofen and Aleve) Muscle Relaxants Analgesics Opioids PREVIOUS SPINAL SURGERY: None ACTIVE PROBLEM LIST Lateral Mass Fracture of First Cervical Vertebra (Hcc) Closed Fracture of Seventh Cervical Vertebra (Hcc) Closed Wedge Compression Fracture of Eighth Thoracic Vertebra (Hcc) Sternal Fracture Fracture of One Rib of Right Side Fracture of Multiple Pubic Rami (Hcc) Closed Fracture of Ilium (Hcc) Fracture of Distal End of Right Radius PAST MEDICAL HISTORY Diagnosis Date - Anxiety - Depression PAST SURGICAL HISTORY Procedure Laterality Date - ECHOCARDIOGRAM 07/08/2017 - JOINT REPLACEMENT HX 2009 right hip replacement - TUBAL LIGATION HX FAMILY HISTORY Problem Relation Age of Onset - Heart Mother Social History Marital status: Spouse name: Years of education: Number of children: Social History Main Topics Smoking status: Never Smoker Smokeless status: Never Used Alcohol use: Yes Comment: pt states 3 tall glasses of vodka per day Drug use: No ALLERGIES No Known Allergies MEDICATIONS: ARIPiprazole (ABILIFY) 10 mg tablet BUSPIRONE HCL (BUSPAR ORAL) Take 10 mg by mouth three times daily as needed (for anxiety). oxyCODONE-acetaminophen (PERCOCET) 5-325 mg tablet enoxaparin (LOVENOX) 30 mg/0.3 mL injection Inject 0.3 mL subcutaneously q 12 HR. senna-docusate (SENNA-S) 8.6-50 mg per tablet Take 1 tablet by mouth twice daily. cyclobenzaprine (FLEXERIL) 5 mg tablet Take 1 tablet by mouth three times daily. ARIPIPRAZOLE (ABILIFY ORAL) Take 10 mg by mouth once daily. REVIEW OF SYSTEMS: GENERAL: No weight loss or malaise MUSCULOSKELETAL: Negative for joint pain, swelling or muscle pain NEURO: No history of headaches, syncope, paralysis, seizures or tremors OBJECTIVE: PHYSICAL EXAM BP 130/81 (BP Site: Left Arm, BP Position: Sitting, BP Cuff Size: Regular Adult) Pulse 93 Ht 172.7 cm (5' 8) Wt 73.1 kg (161 lb 1.6 oz) BMI 24.5 kg/m2 GENERAL APPEARANCE: Well nourished, well developed, and no apparent distress. Tremulous throughout especially hands, likely related to alcohol per patient. NEURO PSYCH: Patient oriented to person, place, and time. Mood pleasant. Benign affect. MUSCULOSKELETAL VISUAL INSPECTION CERVICAL: WNL THORACIC: WNL LUMBAR: WNL MOTOR: 5/5 in all muscle groups. SENSORY: Normal sensory exam GAIT: Abnormal. Antalgic. NEURO TESTS: None DATA REVIEW Outside imaging and reports reviewed by Dr. Child. CT cervical lumbar thoracic radiological reads indicate multiple compression fractures. Dr. Child does not feel that mostly the cervical and thoracic compression fractures are truly compression fractures. Lumbar compression fracture at L2 is mostly endplate. ASSESSMENT/PLAN IMPRESSION: Encounter Diagnosis ICD-10-CM 1. Closed compression fracture of L2 lumbar vertebra with routine healing, subsequent encounter S32.020D CONSULT TO PHYSICAL THERAPY MRI THORACIC SPINE WO IVCON MRI LUMBAR SPINE WO IVCON 2. Closed displaced fracture of seventh cervical vertebra, unspecified fracture morphology, initial encounter ([facility]) S12.600A CONSULT TO PHYSICAL THERAPY MRI THORACIC SPINE WO IVCON MRI LUMBAR SPINE WO IVCON 3. Closed displaced fracture of right ilium with routine healing, unspecified fracture morphology, subsequent encounter S32.301D CONSULT TO PHYSICAL THERAPY MRI THORACIC SPINE WO IVCON MRI LUMBAR SPINE WO IVCON 4. Closed displaced lateral mass fracture of first cervical vertebra, initial encounter ([facility]) S12.040A CONSULT TO PHYSICAL THERAPY MRI THORACIC SPINE WO IVCON MRI LUMBAR SPINE WO IVCON Seen by Dr. Child. See Dr. Child's addendum. 1. Imaging: Lumbar MRI Without Contrast and Thoracic MRI Without Contrast 2. Consults: Physical Therapy 3. Follow up: Following above Addendum: She presents with multiple compression fractures present since June 2017. She does have persistent back pain. I will order an MRI of her thoracic and lumbar spine to rule out subacute compression fractures. I'm going to start her in physical therapy and she can discontinue the brace. We'll see her back to review her images. SIGNATURE: Raven Child MD PATIENT NAME: Prashant Whitney DATE: October 15, 2017 TIME: 8:45 AM PAGER: [id number] Observed: 10/15/2017 Status: COMPLETED Source: [place] 7:40 AM [facility] Office Visit ([facility]) PRASHANT WHITNEY ([id number]) 1960 F Date Time Provider Department 10/15/17 7:40 AM RAVEN CHILD [facility] During your visit today, we recorded the following information about you: Pulse Blood pressure Weight Height 93/minute 130/81 73.1 kg 1.727 m Raven Child MD 10/16/2017 9:18 AM Signed SPINE SURGERY NEW PATIENT PCP: No Pcp REFERRING PROVIDER: Self SUBJECTIVE HISTORY OF PRESENT ILLNESS: C7, T3, T7, T8 and L3 compression fractures noted on imaging especially CT since fall in June 2017. Patient also complained of pre-existing right sided lower back pain with out radicular leg pain mention today. Patient did not mention history of brace, physical therapy or injections. Patient states that she is only taking Tylenol or Motrin for pain. Patient indicated that she is quite fatigued throughout the day. Also mentioned that she's been having more neck heaviness. Prashant Whitney is a 57 year old female presenting alone. CHIEF COMPLAINT: Neck, mid back and lower back pain with fractures since fall that occurred on with loss of consciousness which got her admitted to [facility] PRECIPITATING EVENT: Injury at home. DURATION OF SYMPTOMS: Greater Than 3 Months PAIN EVALUATION 10/15/2017 Pain Score: 4 Pain Location: - back and neck Description: Aching;Pulsating Duration Amount of Time: 3 Duration Units: Months Frequency: Intermittent Intervention: Relaxation Comments: sitting on pillows Pain Radiation: Pain does not radiate, Pain does not radiate Aggravating Factors: Flexion, Extension, Rotation, Pushing, Pulling, Reaching, Above shoulder activities, Driving (riding in a car), Entering/exiting a car Alleviating Factors: None Pain Ratio: Pain in the back is greater than in the leg, Pain in the neck is greater than in the arm DERMATOMAL DISTRIBUTION: Not applicable AMBULATORY STATUS: Impaired Community Distances PREVIOUS CONSERVATIVE TREATMENTS: OTC NSAIDS for 3 Months or Greater (Ibuprofen and Aleve) Muscle Relaxants Analgesics Opioids PREVIOUS SPINAL SURGERY: None ACTIVE PROBLEM LIST Lateral Mass Fracture of First Cervical Vertebra (Hcc) Closed Fracture of Seventh Cervical Vertebra (Hcc) Closed Wedge Compression Fracture of Eighth Thoracic Vertebra (Hcc) Sternal Fracture Fracture of One Rib of Right Side Fracture of Multiple Pubic Rami (Hcc) Closed Fracture of Ilium (Hcc) Fracture of Distal End of Right Radius PAST MEDICAL HISTORY Diagnosis Date - Anxiety - Depression PAST SURGICAL HISTORY Procedure Laterality Date - ECHOCARDIOGRAM 07/08/2017 - JOINT REPLACEMENT HX 2009 right hip replacement - TUBAL LIGATION HX FAMILY HISTORY Problem Relation Age of Onset - Heart Mother Social History Marital status: Spouse name: Years of education: Number of children: Social History Main Topics Smoking status: Never Smoker Smokeless status: Never Used Alcohol use: Yes Comment: pt states 3 tall glasses of vodka per day Drug use: No ALLERGIES No Known Allergies MEDICATIONS: ARIPiprazole (ABILIFY) 10 mg tablet BUSPIRONE HCL (BUSPAR ORAL) Take 10 mg by mouth three times daily as needed (for anxiety). oxyCODONE-acetaminophen (PERCOCET) 5-325 mg tablet enoxaparin (LOVENOX) 30 mg/0.3 mL injection Inject 0.3 mL subcutaneously q 12 HR. senna-docusate (SENNA-S) 8.6-50 mg per tablet Take 1 tablet by mouth twice daily. cyclobenzaprine (FLEXERIL) 5 mg tablet Take 1 tablet by mouth three times daily. ARIPIPRAZOLE (ABILIFY ORAL) Take 10 mg by mouth once daily. REVIEW OF SYSTEMS: GENERAL: No weight loss or malaise MUSCULOSKELETAL: Negative for joint pain, swelling or muscle pain NEURO: No history of headaches, syncope, paralysis, seizures or tremors OBJECTIVE: PHYSICAL EXAM BP 130/81 (BP Site: Left Arm, BP Position: Sitting, BP Cuff Size: Regular Adult) Pulse 93 Ht 172.7 cm (5' 8ANDquot;) Wt 73.1 kg (161 lb 1.6 oz) BMI 24.5 kg/m2 GENERAL APPEARANCE: Well nourished, well developed, and no apparent distress. Tremulous throughout especially hands, likely related to alcohol per patient. NEURO PSYCH: Patient oriented to person, place, and time. Mood pleasant. Benign affect. MUSCULOSKELETAL VISUAL INSPECTION CERVICAL: WNL THORACIC: WNL LUMBAR: WNL MOTOR: 5/5 in all muscle groups. SENSORY: Normal sensory exam GAIT: Abnormal. Antalgic. NEURO TESTS: None DATA REVIEW Outside imaging and reports reviewed by Dr. Child. CT cervical lumbar thoracic radiological reads indicate multiple compression fractures. Dr. Child does not feel that mostly the cervical and thoracic compression fractures are truly compression fractures. Lumbar compression fracture at L2 is mostly endplate. ASSESSMENT/PLAN IMPRESSION: Encounter Diagnosis ICD-10-CM 1. Closed compression fracture of L2 lumbar vertebra with routine healing, subsequent encounter S32.020D CONSULT TO PHYSICAL THERAPY MRI THORACIC SPINE WO IVCON MRI LUMBAR SPINE WO IVCON 2. Closed displaced fracture of seventh cervical vertebra, unspecified fracture morphology, initial encounter ([facility]) S12.600A CONSULT TO PHYSICAL THERAPY MRI THORACIC SPINE WO IVCON MRI LUMBAR SPINE WO IVCON 3. Closed displaced fracture of right ilium with routine healing, unspecified fracture morphology, subsequent encounter S32.301D CONSULT TO PHYSICAL THERAPY MRI THORACIC SPINE WO IVCON MRI LUMBAR SPINE WO IVCON 4. Closed displaced lateral mass fracture of first cervical vertebra, initial encounter ([facility]) S12.040A CONSULT TO PHYSICAL THERAPY MRI THORACIC SPINE WO IVCON MRI LUMBAR SPINE WO IVCON Seen by Dr. Child. See Dr. Child's addendum. 1. Imaging: Lumbar MRI Without Contrast and Thoracic MRI Without Contrast 2. Consults: Physical Therapy 3. Follow up: Following above Addendum: She presents with multiple compression fractures present since June 2017. She does have persistent back pain. I will order an MRI of her thoracic and lumbar spine to rule out subacute compression fractures. I'm going to start her in physical therapy and she can discontinue the brace. We'll see her back to review her images. SIGNATURE: Raven Child MD PATIENT NAME: Prashant Whitney DATE: October 15, 2017 TIME: 8:45 AM PAGER: Referring Provider: CHINEDU PERKINS [[id number]] Allergies As of Date: 10/15/2017 (No Known Allergies) Date Reviewed: 10/15/2017 Reviewed by: Brandy Koch Ma - Fully Assessed Reason for Visit: New Patient [172] Primary Visit Diagnosis:Closed compression fracture of L2 lumbar vertebra with routine healing, subsequent encounter [S32.020D] Other Visit Diagnoses:Closed displaced fracture of seventh cervical vertebra, unspecified fracture morphology, initial encounter ([facility]) [S12.600A] Closed displaced fracture of right ilium with routine healing, unspecified fracture morphology, subsequent encounter [S32.301D] Closed displaced lateral mass fracture of first cervical vertebra, initial encounter ([facility]) [S12.040A] Order(s):CONSULT TO PHYSICAL THERAPY [9032] Order #: [id number]: 1 MRI THORACIC SPINE WO IVCON [[id number]] Order #: [id number] FUTURE MRI LUMBAR SPINE WO IVCON [[id number]] Order #: [id number] FUTURE Prescriptions as of 10/15/2017 Sig: ARIPIPRAZOLE 10 MG TABLET BUSPAR ORAL Take 10 mg by mouth three michael* OXYCODONE-ACETAMINOPHEN 5 MG-* ENOXAPARIN 30 MG/0.3 ML SUBCU* Inject 0.3 mL subcutaneously * SENNOSIDES 8.6 MG-DOCUSATE SO* Take 1 tablet by mouth twice * CYCLOBENZAPRINE 5 MG TABLET Take 1 tablet by mouth three * ABILIFY ORAL Take 10 mg by mouth once xavi* Problem List As Of Date 10/15/2017 Noted Resolved Fall [W19.XXXA] INVALID FOR*07/10/2017 Lateral mass fracture of first cervical vertebr*INVALID FOR* Closed fracture of seventh cervical vertebra (H*INVALID FOR* Closed wedge compression fracture of eighth tho*INVALID FOR* Sternal fracture [S22.20XA] INVALID FOR* Fracture of one rib of right side [S22.31XA] INVALID FOR* More... Fracture of multiple pubic rami (HCC) [S32.599A]INVALID FOR* More... Closed fracture of ilium (HCC) [S32.309A] INVALID FOR* Fracture of distal end of right radius [S52.501*INVALID FOR* Trauma [T14.90XA] INVALID FOR*07/10/2017 Disposition: Return if symptoms worsen or fail to improve. Follow-up and Disposition History Recorded Encounter Status:Closed by RAVEN CHILD MD on 10/16/17 PROGRESS Observed: 09/04/2017 Status: COMPLETED Source: [place] 11:02 AM CLINIC OTHER CAMPUS REPOSITORY HNO ID: [id number] Author: Maxim Berger Service: (none) Author Type: Physician Type: Progress Notes Filed: 09/04/2017 11:05 AM Note Text: Follow-up Patient Visit Prashant Whitney is a 57 year old female who presents to follow up for Closed fracture of distal end of right radius with routine healing, unspecified fracture morphology, subsequent encounter (primary encounter diagnosis) Closed fracture of multiple pubic rami with routine healing, subsequent encounter, unspecified laterality Current or previous treatment regimens: physical therapy, occupational therapy, NSAIDS and narcotic pain medication Medications: Current Outpatient Prescriptions: ARIPiprazole (ABILIFY) 10 mg tablet BUSPIRONE HCL (BUSPAR ORAL) Take 10 mg by mouth three times daily as needed (for anxiety). oxyCODONE-acetaminophen (PERCOCET) 5-325 mg tablet enoxaparin (LOVENOX) 30 mg/0.3 mL injection Inject 0.3 mL subcutaneously q 12 HR. senna-docusate (SENNA-S) 8.6-50 mg per tablet Take 1 tablet by mouth twice daily. cyclobenzaprine (FLEXERIL) 5 mg tablet Take 1 tablet by mouth three times daily. ARIPIPRAZOLE (ABILIFY ORAL) Take 10 mg by mouth once daily. No current facility-administered medications for this visit. Allergies: ALLERGIES No Known Allergies Physical Examination: Resp 16 Ht 5' 8 (1.73m) Wt 157 lb (71.2kg) BMI 23.88 kg/(m2). Right wrist no obvious swelling, minimal tenderness, DF 10 degree, VF 10 degrees, NVI Ambulates without device, no pain with hip ROM, NVI Images: 3 views of the right wrist taken today and reviewed by myself shows stable intra articular right distal radius fracture that shows signs of callous formation AP pelvis taken today and reviewed by myself shows evidence of healing right pubic ramus fractures, stable right HOMER cementless Cuming Score: see report Assessment and Plan: 1. Closed fracture of distal end of right radius with routine healing, unspecified fracture morphology, subsequent encounter - ICD9: V54.12, ICD10: S52.501D (primary diagnosis) 2. Closed fracture of multiple pubic rami with routine healing, subsequent encounter, unspecified laterality - ICD9: V54.13, ICD10: S32.509D No restrictions, wean out of the wrist brace Therapy as tolerated with the neck brace on FU as needed No Follow-up on file. Maxim Berger MD PROGRESS Observed: 09/04/2017 Status: COMPLETED Source: [place] 10:05 AM [facility] REPOSITORY HNO ID: [id number] Author: Karishma [facility] Service: (none) Author Type: (none) Type: Progress Notes Filed: 09/04/2017 11:05 AM Note Text: REVIEW OF SYSTEMS: GENERAL: Well developed, well nourished. No acute distress PAIN: Pain right wrist CARDIOVASCULAR: Negative for chest pain, leg swelling and palpations. MSK: Negative for joint pain, swelling, back pain, muscle pain. SKIN: Negative for lesions, rash, itching, metal sensitivity NEURO: Trauma 07-06-17 ENDOCRINE: Negative for Diabetes Type 1 and Type 2 HEMATOLOGY: Negative for excessive bleeding, clots, bleeding disorders. CNOV Observed: 09/04/2017 Status: COMPLETED Source: [place] 10:00 AM [facility] REPOSITORY Office Visit (AGHWN) PRASHANT WHITNEY ([id number]) 1960 F Date Time Provider Department 09/04/17 10:00 AM MAXIM BERGER During your visit today, we recorded the following information about you: Respiration Weight Height 16/minute 71.2 kg 1.727 m [facility] 09/04/2017 11:05 AM Signed REVIEW OF SYSTEMS: GENERAL: Well developed, well nourished. No acute distress PAIN: Pain right wrist CARDIOVASCULAR: Negative for chest pain, leg swelling and palpations. MSK: Negative for joint pain, swelling, back pain, muscle pain. SKIN: Negative for lesions, rash, itching, metal sensitivity NEURO: Trauma 07-06-17 ENDOCRINE: Negative for Diabetes Type 1 and Type 2 HEMATOLOGY: Negative for excessive bleeding, clots, bleeding disorders. Maxim Begrer MD 09/04/2017 11:05 AM Signed Follow-up Patient Visit Prashant Whitney is a 57 year old female who presents to follow up for Closed fracture of distal end of right radius with routine healing, unspecified fracture morphology, subsequent encounter (primary encounter diagnosis) Closed fracture of multiple pubic rami with routine healing, subsequent encounter, unspecified laterality Current or previous treatment regimens: physical therapy, occupational therapy, NSAIDS and narcotic pain medication Medications: Current Outpatient Prescriptions: ARIPiprazole (ABILIFY) 10 mg tablet BUSPIRONE HCL (BUSPAR ORAL) Take 10 mg by mouth three times daily as needed (for anxiety). oxyCODONE-acetaminophen (PERCOCET) 5-325 mg tablet enoxaparin (LOVENOX) 30 mg/0.3 mL injection Inject 0.3 mL subcutaneously q 12 HR. senna-docusate (SENNA-S) 8.6-50 mg per tablet Take 1 tablet by mouth twice daily. cyclobenzaprine (FLEXERIL) 5 mg tablet Take 1 tablet by mouth three times daily. ARIPIPRAZOLE (ABILIFY ORAL) Take 10 mg by mouth once daily. No current facility-administered medications for this visit. Allergies: ALLERGIES No Known Allergies Physical Examination: Resp 16 Ht 5' 8ANDquot; (1.73m) Wt 157 lb (71.2kg) BMI 23.88 kg/(m2). Right wrist no obvious swelling, minimal tenderness, DF 10 degree, VF 10 degrees, NVI Ambulates without device, no pain with hip ROM, NVI Images: 3 views of the right wrist taken today and reviewed by myself shows stable intra articular right distal radius fracture that shows signs of callous formation AP pelvis taken today and reviewed by myself shows evidence of healing right pubic ramus fractures, stable right HOMER cementless Cuming Score: see report Assessment and Plan: 1. Closed fracture of distal end of right radius with routine healing, unspecified fracture morphology, subsequent encounter - ICD9: V54.12, ICD10: S52.501D (primary diagnosis) 2. Closed fracture of multiple pubic rami with routine healing, subsequent encounter, unspecified laterality - ICD9: V54.13, ICD10: S32.509D No restrictions, wean out of the wrist brace Therapy as tolerated with the neck brace on FU as needed No Follow-up on file. Maxim Berger MD Referring Provider: SELF [200] Allergies As of Date: 09/04/2017 (No Known Allergies) Date Reviewed: 09/04/2017 Reviewed by: Maxim Berger - Fully Assessed Reason for Visit: Pain [78] Cmt: Right wrist Primary Visit Diagnosis:Closed fracture of distal end of right radius with routine healing, unspecified fracture morphology, subsequent encounter [S52.501D] Other Visit Diagnosis:Closed fracture of multiple pubic rami with routine healing, subsequent encounter, unspecified laterality [S32.509D] Order(s):XR WRIST GENERAL 3V PA/LAT/OBL RT [[id number]] Order #: [id number] XR PELVIS 1V AP [[id number]] Order #: [id number] Prescriptions as of 09/04/2017 Sig: ARIPIPRAZOLE 10 MG TABLET BUSPAR ORAL Take 10 mg by mouth three michael* OXYCODONE-ACETAMINOPHEN 5 MG-* ENOXAPARIN 30 MG/0.3 ML SUBCU* Inject 0.3 mL subcutaneously * SENNOSIDES 8.6 MG-DOCUSATE SO* Take 1 tablet by mouth twice * CYCLOBENZAPRINE 5 MG TABLET Take 1 tablet by mouth three * ABILIFY ORAL Take 10 mg by mouth once xavi* Medication notes this encounter OXYCODONE-ACETAMINOPHEN 5 MG-325 MG TABLET >> Karishma [facility] 09/04/2017 10:05 AM >> KARISHMA OBRIEN [facility] Sep 04, 2017 10:05 AM No longer taking ENOXAPARIN 30 MG/0.3 ML SUBCUTANEOUS SYRINGE >> Karishma [facility] 09/04/2017 10:05 AM >> KARISHMA OBRIEN [facility] Sep 04, 2017 10:05 AM No longer taking SENNOSIDES 8.6 MG-DOCUSATE SODIUM 50 MG TABLET >> Karishma [facility] 09/04/2017 10:05 AM >> KARISHMA OBRIEN [facility] Sep 04, 2017 10:05 AM No longer taking CYCLOBENZAPRINE 5 MG TABLET >> Karishma [facility] 09/04/2017 10:04 AM >> KARISHMA OBRIEN [facility] Sep 04, 2017 10:04 AM No longer taking ABILIFY ORAL >> Karishma [facility] 09/04/2017 10:04 AM >> KARISHMA OBRIEN Sep 04, 2017 10:04 AM Duplicate Problem List As Of Date 09/04/2017 Noted Resolved Fall [W19.XXXA] INVALID FOR*07/10/2017 Lateral mass fracture of first cervical vertebr*INVALID FOR* Closed fracture of seventh cervical vertebra (H*INVALID FOR* Closed wedge compression fracture of eighth tho*INVALID FOR* Sternal fracture [S22.20XA] INVALID FOR* Fracture of one rib of right side [S22.31XA] INVALID FOR* More... Fracture of multiple pubic rami (HCC) [S32.599A]INVALID FOR* More... Closed fracture of ilium (HCC) [S32.309A] INVALID FOR* Fracture of distal end of right radius [S52.501*INVALID FOR* Trauma [T14.90XA] INVALID FOR*07/10/2017 Encounter Status:Closed by MAXIM BERGER MD on 09/04/17 DX THORACIC SPINE 2 Observed: 09/01/2017 Status: F Source: [place] 1:17 PM [facility]ALTH [facility] REPOSITORY Performed at [facility] APPROVED BY: Qamar Payne MD EXAM TITLE: DX THORACIC SPINE 2 VIEWS DATE: 09/01/2017 13:03 COMPARISON: CT scan of the thoracic spine from August 18, 2017 CLINICAL INDICATION/HISTORY: The patient is a 57-year-old female with known wedge compression of T8 superior endplate and smaller endplate compressions of T7 and T3. TECHNIQUE: AP and lateral views of the thoracic spine are presented. FINDINGS: There is a levoscoliosis of the upper thoracic spine with the apex of curvature localized to T5-6. The wedge compression of T8 is again identified and overall degree of anterior wedging and loss of hei ght appears to have progressed slightly since the previous CT exam with increased amount of kyphosis. No new fractures or subluxations are noted. The bones continue to be demineralized. The disc spaces are well preserved. There is no paraspinal mass or nallely destructive process. IMPRESSION: There continues to be osteopenia or osteoporosis. There appears to be some increased kyphosis due to increased anterior wedging of T8. Levoscoliosis is also present. DX LUMBOSACRAL SPINE 2 Observed: 09/01/2017 Status: F Source: [employer] [place] 3 VIEWS 1:17 PM HEALTH SYSTEM REPOSITORY Performed at [facility] APPROVED BY: Qamar Payne MD EXAM TITLE: DX LUMBOSACRAL SPINE 2 OR 3 VIEWS DATE: 09/01/2017 13:03 COMPARISON: CT scan of the lumbar spine from the same day. CLINICAL INDICATION/HISTORY: The patient is a 57-year-old female with lumbar compression fracture. TECHNIQUE: AP and lateral views of the lumbar spine are presented. FINDINGS: There are five wgz-lzx-oqstizb lumbar vertebra. There is superior endplate compression of L2 with approximately 15% of loss of height centrally and anteriorly. No other fractures or subluxations are identified. The bones are demineralized. The disc spaces are well preserved. There is no significant osteophyte formation. IMPRESSION: There is osteopenia or osteoporosis. There is superior endplate compression of L2. CT LUMBAR SPINE W/O Observed: 09/01/2017 Status: F Source: [facility] GENERAL CONTRAST 1:05 PM HEALTH SYSTEM REPOSITORY Performed at [facility] APPROVED BY: Blanco Aldridge MD CT LUMBAR SPINE W/O CONTRAST HISTORY: Subacute L3 fracture. COMPARISON: None. TECHNIQUE: Spiral, high resolution axial images were obtained from the thoracolumbar junction to the sacrum with sagittal and coronal planar reconstructions. Dose-Length Product (DLP): 670 mGy*cm. CT Dose Reduction Employed: Yes RESULT: CT LUMBAR: Counting reference: Most caudal disc space is designated L5- S1 level Alignment: Alignment is anatomic. Bone marrow /fracture: Moderate degree of concave deformity superior aspect of the L1 vertebral body. No evidence of perivertebral space hemorrhage at this level. Moderate degree of coexisting degener ative change at the L1-2 level. Paraspinal soft tissues: The paraspinal soft tissues planes are maintained. Cortical scarring posterior left kidney and nonobstructing 3 mm parenchymal calcification. T12-L1: Canal and foramina are patent. L1-L2: Mild degree of central canal narrowing due to osseous changes L2-L3: No osseous or disc abnormality L3-L4: No osseous or disc abnormalities L4-L5: No osseous or disc abnormalities L5-S1: Left paramedian central disc bulging with mass effect on left ventral thecal sac seen on axial image 71. Sacrum and iliac wings: As seen on axial image 82/series 2, subacute vertical fracture right side of the sacrum with sclerotic changes. No evidence of SI joint diastases. IMPRESSION: 1. Moderate degree of concave deformity superior aspect of the L1 vertebral body. No evidence of perivertebral space hemorrhage at this level. Moderate degree of coexisting degenerative change at the L1-[address] diagnostic consideration is late subacute/chronic fracture. 2. Subacute vertical fracture right side of the sacrum with sclerotic changes. 3. Results of study were submitted to be called to ordering physician following interpretation on 09/02/2017 at 1:[address] CERVICAL SPINE W/O Observed: 09/01/2017 Status: F Source: [place] [facility] CONTRAST 12:55 PM [facility]ALTH SYSTEM REPOSITORY Performed at [facility] APPROVED BY: Blanco Aldridge MD EXAMINATION: CT CERVICAL SPINE W/O CONTRAST HISTORY: Nondisplaced fracture or cervical rib TECHNIQUE: CT of the cervical spine without IV contrast. Spiral, high resolution axial images were obtained from the skull base to the cervicothoracic junction with sagittal and coronal planar reconstructions. MQ: [id number] CT Dose-Length Product (DLP): 259 mGy*cm CT Dose Reduction Employed: Yes COMPARISON: None. RESULT: Counting reference: Craniocervical junction. Alignment: Alignment is anatomic. Craniocervical junction: Craniocervical junction is normal. Mild mucosal change of the sphenoid sinus. Osseous structures/fracture: No evidence of a lytic or blastic process in the visualized spine. No evidence of acute fracture. Best seen on sagittal image 46, evidence of an old corticated fracture C7 left superior articular process. No evidence of facet joint dislocation. Cervical soft tissues: The paraspinal soft tissues are within normal limits. Degenerative changes: Mild degree of bilateral facet arthropathy throughout the cervical spine Mild degree of chronic pleural and parenchymal changes in upper lung zones. IMPRESSION: 1.No evidence of acute fracture. 2. Best seen on sagittal image 46, evidence of an old corticated fracture C7 left superior articular process. No evidence of facet joint dislocation. CT THORACIC SPINE W/O Observed: 08/18/2017 Status: F Source: [place] [facility] CONTRAST 10:12 AM HEALTH SYSTEM REPOSITORY Performed at [facility] APPROVED BY: Mark Samuels MD EXAMINATION: CT THORACIC SPINE WITHOUT CONTRAST HISTORY: Multiple thoracic spine fractures. COMPARISON: CT thoracic spine 07/06/2017. TECHNIQUE: Spiral, high resolution axial images were obtained from the cervicothoracic junction to the thoracolumbar junction with sagittal and coronal planar reconstructions. Dose-Length Product (DLP): 553.89 mGy*cm. CT Dose Reduction Employed: Automated exposure control (AEC) was used. RESULT: CT THORACIC: Counting reference: Craniocervical junction. Alignment: Levoconvex scoliosis of the upper thoracic spine. Dextroconvex scoliosis of the lower thoracic spine. Bone marrow / fracture: Moderate anterior wedge compression fracture T8 superior endplate with slightly more height loss since the prior exam. Minimal compression fracture of the T7 inferior endplate , stable. Minimal compression deformity of T3 superior endplate. No evidence of a lytic or blastic process in the visualized spine. No other evidence of acute or chronic fracture. Thoracic soft tissues: The paraspinal soft tissues planes are maintained. Canal and foramina: The bony thoracic canal and foramina are patent. IMPRESSION: Moderate anterior wedge T8 superior endplate compression fracture with increased height loss since prior exam. No retropulsion. Stable T7 minimal inferior endplate compression fracture. Minimal compression deformity of T3 superior endplate, stable. Biconvex thoracic scoliosis. ALLERGIES ALLERGIES DATE TYPE / CODE NAME / CODE REACTION SEVERITY SOURCE 06/30/2018 Drug No Known Unknown [facility] Allergy/416 Allergies/H90885 Hospital [id number](SNOM 0388(RXNORM) Repository ED CT) NG/[id number] NO KNOWN [facility] 6(SNOMED ALLERGIES Health [facility] CT) Repository Drug NO KNOWN [facility] Class/71666 ALLERGIES Other [place] 1003(SNOMED Repository CT) ENCOUNTERS ENCOUNTERS ADMIT/DISCHARGE ACCOUNT NUMBER ADMITTING ENCOUNTER LOCATION SOURCE CLASS 06/30/2018/06/30/20 [id number] Ambulatory BMSBuilding: [address] Repository 06/30/2018 [id number] Ambulatory [facility] ding:LABSPEC Repository 12/31/2017/01/01/20 [id number] Ambulatory [address] ding:PT Repository 10/30/2017/10/31/19 [id number] Ambulatory [address] Repository 10/15/2017/10/18/19 [id number] Ambulatory [address] Repository 09/04/2017/09/04/19 [id number] Ambulatory [address] Other [place] Repository 09/04/2017/09/04/19 [id number] Ambulatory [address] MEDICAL Repository CENTERBuildi ng:AGHWN 09/01/2017 [id number] Ambulatory [facility] Other [place] Repository 09/01/[id number] [facility] Repository 09/01/[id number] [facility] Repository 09/01/2017 [id number] Ambulatory [facility] MEDICAL Repository CENTERBuildi ng:AKCT 09/01/2017 [id number] Ambulatory [facility] MEDICAL Repository CENTERBuildi ng:AKXRC 09/01/2017 [id number] Ambulatory [facility] MEDICAL Repository CENTERBuildi ng:AKXRC 09/01/[id number] [facility] Repository 09/01/2017 [id number] Ambulatory [facility] MEDICAL Repository CENTERBuildi ng:AKCT 08/28/2017 [id number] Ambulatory [facility] MEDICAL Repository CENTERBuildi ng:AKCT 08/18/[id number] [facility] Repository 08/18/2017 [id number] Ambulatory [facility] MEDICAL Repository CENTERBuildi ng:AKCT PAYERS PAYERS ENCOUNTER GUARANTOR PAYER SUBSCRIBER SOURCE 06/30/2018 PRASHANT J [id number] Primary PRASHANT J SIGGDOB: [place] [address] Insurance:ANTHEMPolic [id number] [place] Number: [facility] [address]Fsh: ([phone] [id number] Repository [phone] () Date:[id number] [address]PD: 06/30/2018 Secondary NOT GIVENUNK Ander Insurance:SELF PAY [facility] Number: Effective Repository Date:2018-06-30 06/30/2018 PRASHANT J [id number] Primary PRASHANT J SIGGDOB: [place] [address] Insurance:ANTHEMPva [facility] [id number] [facility] Number: [facility] [address]Pcj: [phone] [id number] Repository [phone] (HP) Date:6726-96-07[address], [place] [address]RO: 06/30/2018 Secondary NOT GIVENUNK Ander Insurance:SELF PAY [facility] Number: Effective Repository Date:2018-06-30 12/31/2017 PRASHANT Manisha [id number] Primary Insurance:[facility] PRASHANT J SIGGDOB: [place] N [address] [facility] [id number] Number: Hospital [id number]: [phone] [id number] Repository [phone] (HP) Date:4429-03-52[address] [place] [address]EA: 12/31/2017 Secondary NOT GIVENUNK [place] Insurance:SELF PAY [facility] Number: Effective Repository Date:2017-10-20 09/04/2017 PRASHANT J SIGGDOB: Primary Insurance:[facility] PRASHANT J SIGGDOB: [facility] N COMMUNITY PLAN [id number] [facility] [address] [facility] [place] [facility], [place] Number: [id number]: [phone] [id number] [phone] (HP) Date: 09/01/2017 PRASHANT J SIGGDOB: Primary Insurance:[facility] PRASHANT J SIGGDOB: [facility] [id number] [facility] [address] MEDICAIDPolicy Repository [facility], [place] Number: [id number]: [phone] [phone] (HP) Date: 09/01/2017 PRASHANT J SIGGDOB: Primary Insurance:[facility] PRASHANT J SIGGDOB: [facility] N [facility] [id number] [facility] [address] MEDICAIDPolicy Repository [facility], [place] Number: [id number]: [phone] [id number] [phone] (HP) Date: 09/01/2017 PRASHANT J SIGGDOB: Primary Insurance:[facility] PRASHANT J SIGGDOB: [facility] N [facility] PL[facility] [id number] MEDICAIDPolicy Repository [facility], [place] Number: [id number]: [phone] [phone] (HP) Date: 09/01/2017 PRASHANT Dyer SIGGDOB: Primary Insurance:[facility] PRASHANT J SIGGDOB: [facility] N [facility] [id number] Memorial Hospital MEDICAIDPolicy Repository [facility], [place] Number: [id number]: [phone] [id number] [phone] (HP) Date: 08/28/2017 PRASHANT SIGGDOB: Primary Insurance:[facility] PRASHANT SIGGDOB: [facility] E [facility] [id number] Health [facility] MEDICAIDPolicy Repository [facility], [place] Number: [id number]: [phone] [id number] [phone] (HP) Date: 08/18/2017 PRASHANT SIGGDOB: Primary Insurance:[facility] PRASHANT SIGGDOB: [facility] E [facility] [place] [id number] MEDICAIDPolicy Repository [facility], [place] Number: [id number]: [phone] (HP) Date:
== END ==
PROVIDERS: Family Provider Nurse Practitioner Family; PCP Nurse Practitioner Family; Referring Provider Physician Assistant Surgical; Visit Provider Physician Assistant Surgical
DX: R10.9 Unspecified abdominal pain (principal)
CPT/HCPCS: 81001; 87086; 87088; 87186

== ENCOUNTER → 2018-11-03 12:43 | Outpatient (CLI) | payer OTHER, SELFPAY ==
[2018-11-03 12:40] VITALS: BMI 27.4
--- NOTE | 2018-11-03 12:47 | RAD_ITS ---
STUDY: X-RAY - LUMBAR SPINE REASON FOR EXAM: Female, 58 years old. Pain after picking something up. TECHNIQUE: 4 view(s) of the lumbar spine were obtained. COMPARISON: CT scan dated July 06, 2017. FINDINGS: Partially visualized right hip arthroplasty. No significant scoliosis. Slightly exaggerated lumbar lordosis. Chronic L2 compression deformity. No new fracture lines. No dislocation. Minimal endplate spondylosis. Facet joint arthrosis at L4-5 and L5-S1. Normal soft tissue structures. Normal bowel gas pattern. RAD/L/S Spine Min 4 Views IMPRESSION: Lumbar spine intact Chronic L2 compression deformity Exaggerated lumbar lordosis with mild osteoarthritic features Electronically Signed: Nader Perez DO at 13:17 EDT Tel , Service support ,
--- NOTE | 2018-11-03 12:47 | RAD_ITS ---
STUDY: X-RAY - THORACIC SPINE REASON FOR EXAM: Female, 58 years old. Pain after picking something up. TECHNIQUE: 3 view(s) of the thoracic spine were obtained. COMPARISON: Chest CT dated July 06, 2017. FINDINGS: Upper thoracic levoscoliosis. Slightly exaggerated thoracic process. Multilevel age indeterminate compression deformities (increased from prior study dated July 06, 2017). No dislocation. No obvious cortical destruction. Osteopenia/osteoporosis. Multilevel endplate spondylosis. No spondylolisthesis. No focal patchy airspace opacities. Basilar atelectasis/scar. Normal soft tissue structures. RAD/Thoracic Spine Min 4 Views IMPRESSION: Multiple age indeterminate compression deformities (multiple new levels from prior exam; MRI can be obtained to determine acuity) Slightly exaggerated thoracic kyphosis with degenerative changes Upper thoracic levoscoliosis Electronically Signed: Nader Perez DO at 13:19 EDT Tel , Service support ,
== END ==
PROVIDERS: Family Provider Nurse Practitioner Family; PCP Nurse Practitioner Family; Referring Provider Physician Assistant Surgical; Visit Provider Physician Assistant Surgical
DX: M54.5 Low back pain (principal); M54.9 Dorsalgia, unspecified
CPT/HCPCS: 72074; 72110

== ENCOUNTER → 2018-11-18 06:27 | Outpatient (CLI) | payer OTHER, SELFPAY ==
[2018-11-03 12:40] VITALS: BMI 27.4
[2018-11-17 06:42] VITALS: BMI 27.4
--- NOTE | 2018-11-18 06:36 | MRI_ITS ---
We are attempting to reach an attending provider to discuss findings. An addendum with communication details will be sent when the communication is complete. STUDY: MRI THORACIC SPINE WITHOUT CONTRAST REASON FOR EXAM: Female, 58 years old. Thoracic pain TECHNIQUE: Standardized fat and water weighted pulse sequences were obtained in the sagittal and axial planes. COMPARISON: None. FINDINGS: Exaggerated kyphosis of the thoracic spine. There is severe dextro scoliosis. There is an acute severe compression fracture of T7 with approximately 60% loss of vertebral body height and retropulsion of bony fragment larger on the left mildly narrowing the central canal and encroaching upon the left nerve root foramen. There is mild chronic wedging of T8 vertebral body with approximately 20-30% loss of vertebral body height. There is also minor wedging of superior endplate of T12 T5 and T3.. There is minor annular bulge at T11-12 and T12-L1 without significant spinal stenosis Normal visualized thoracic cord. Normal conus medullaris that terminates at T12-L1 The soft tissue structures are unremarkable. MRI/Spine Thoracic (Routine) IMPRESSION: Severe kyphoscoliosis centered at T6-7 in association with severe acute compression fracture of T7 with approximately 60% loss of vertebral body height and retropulsion of bony fragment slightly more pronounced on the left on the left mildly narrowing the spinal canal and encroaching upon left nerve root foramen. No associated cord compression. Electronically Signed: Juan Narayan MD at 16:42 EDT , Service support ,
== END ==
PROVIDERS: Family Provider Nurse Practitioner Family; PCP Nurse Practitioner Family; Referring Provider Physician Assistant Surgical; Visit Provider Physician Assistant Surgical
DX: S29.012A Strain of muscle and tendon of back wall of thorax, initial encounter (principal); X58.XXXA Exposure to other specified factors, initial encounter; Y93.9 Activity, unspecified; Y92.9 Unspecified place or not applicable; Y99.9 Unspecified external cause status
CPT/HCPCS: 72146

== ENCOUNTER → 2019-02-02 08:40 | Outpatient (CLI) | payer OTHER, SELFPAY ==
[2019-02-02 08:35] VITALS: BMI 27.4
--- NOTE | 2019-02-02 08:41 | RAD_ITS ---
STUDY: X-RAY - LUMBAR SPINE REASON FOR EXAM: Female, 59 years old. Low back pain TECHNIQUE: 4 view(s) of the lumbar spine were obtained. COMPARISON: 11/03/2018 FINDINGS: Normal lumbar lordosis. There is no substantial scoliosis. There is a normal alignment of the vertebrae. Several compression deformity L2. Sclerotic endplate changes noted elsewhere. No acute fracture or suspicious osseous lesion. The soft tissue structures are unremarkable. RAD/L/S Spine Min 4 Views IMPRESSION: Degenerative changes with stable compression deformity at L2 no acute findings Electronically Signed: Terrence Ortega MD at 9:20 EDT , Service support ,
--- NOTE | 2019-02-02 08:49 | RAD_ITS ---
STUDY: X-RAY - THORACIC SPINE REASON FOR EXAM: Female, 59 years old. Mid back pain TECHNIQUE: 3 view(s) of the thoracic spine were obtained. COMPARISON: None. FINDINGS: Upper thoracic levoscoliosis. Slightly exaggerated thoracic process. Multilevel age indeterminate compression deformities (increased from prior study dated July 06, 2017). No dislocation. No obvious cortical destruction. Osteopenia/osteoporosis. Multilevel endplate spondylosis. No spondylolisthesis. No focal patchy airspace opacities. Basilar atelectasis/scar. Normal soft tissue structures. No significant interval change RAD/Thoracic Spine 3 Views IMPRESSION: Multiple age indeterminate compression deformities (multiple new levels from prior exam; MRI can be obtained to determine acuity) Slightly exaggerated thoracic kyphosis with degenerative changes Upper thoracic levoscoliosis Electronically Signed: Terrence Ortega MD at 9:27 EDT , Service support ,
== END ==
PROVIDERS: Family Provider Nurse Practitioner Family; PCP Nurse Practitioner Family; Referring Provider Orthopaedic Surgery; Visit Provider Orthopaedic Surgery
DX: M48.54XA Collapsed vertebra, not elsewhere classified, thoracic region, initial encounter for fracture (principal); S29.012A Strain of muscle and tendon of back wall of thorax, initial encounter; X58.XXXA Exposure to other specified factors, initial encounter; Y93.9 Activity, unspecified; Y92.9 Unspecified place or not applicable; Y99.9 Unspecified external cause status
CPT/HCPCS: 72072; 72110

== ENCOUNTER → 2019-02-10 06:01 | Outpatient (CLI) | payer BC, SELFPAY ==
[2019-02-09 10:25] VITALS: BMI 27.4
[2019-02-10 07:44] LABS: Absolute Lymphocyte Count 1.66 X10^3/uL (0.83-4.51); Absolute Neutrophil Count 3.2 X10^3/uL (2.0-7.7); Basophil# 0.03 X10^3/uL; Basophil% 0.5 % (0-1); Eosinophil# 0.14 X10^3/uL; Eosinophils% 2.5 % (0-5); Hematocrit 43.2 % (37-47); Hemoglobin 15.2 g/dL (12.0-15.0); Lymphocyte # 1.66 X10^3/ul (4.0); Lymphocyte % 29.6 % (19-41); Mean Corp Hgb Conc 35.2 g/dL (32-36); Mean Corpuscular Hgb 35.1 pg (27.0-32.0); Mean Corpuscular Volume 99.8 fL (81-99); Mean Platelet Vol. 10.2 fl (6.2-12.0); Monocyte# 0.57 X10^3/uL; Monocyte% 10.2 % (0-10); NRBC Flagged by Analyzer 0 % (0-5); Neutrophil # 3.18 X10^3/uL (2.7-7.7); Neutrophil % 56.8 % (47-70); Platelet Count 206 K/mm3 (150-450); RBC Distribution Width CV 14.6 % (11.6-14.6); RBC Distribution Width SD 53.1 fl (35.1-43.9); Red Blood Count 4.33 M/mm3 (4.2-5.4); White Blood Count 5.6 K/mm3 (4.4-11.0)
[2019-02-10 08:10] LABS: ALB/GLOB Ratio 0.9 RATIO (0.9-2.4); AST(SGOT) 38 U/L (15-37); Alanine Aminotransfer ALT/SGPT 54 U/L (13-56); Albumin, Serum 3.7 g/dL (3.2-5.0); Alkaline Phosphatase 101 U/L (45-117); Anion Gap 9 (5-15); BUN 9 mg/dL (7-18); BUN/Creat Ratio 12.9 RATIO (10-20); Calcium,Total 8.9 mg/dL (8.5-10.1); Chloride 102 mmol/L (98-107); Cholesterol 234 mg/dL (200); EST Glomerular Filtration Rate 91 mL/min (>60); Est Glom Filt Rate - Afr Amer 110 mL/min (>60); Globulin 4.2 g/dL (2.2-4.2); Glucose 89 mg/dL (74-106); High Density Lipoprotein 126 mg/dL; Potassium 3.5 mmol/L (3.5-5.1); Protein, Total 7.9 g/dL (6.4-8.2); Sodium Level 141 mmol/L (136-145); Triglycerides 95 mg/dL; Very Low Density Lipoprotein 19 mg/dL (5-40)
[2019-02-10 08:39] LABS: Vitamin D,25 Hydroxy 45.6 ng/mL (29.95-100.01)
== END ==
PROVIDERS: Family Provider Internal Medicine; PCP Internal Medicine; Referring Provider Internal Medicine; Visit Provider Internal Medicine
DX: R03.0 Elevated blood-pressure reading, without diagnosis of hypertension (principal); M85.80 Other specified disorders of bone density and structure, unspecified site; E55.9 Vitamin D deficiency, unspecified
CPT/HCPCS: 36415; 80053; 80061; 82306; 85025

== ENCOUNTER → 2019-03-03 07:57 | Outpatient (CLI) | payer MEDICAID, SELFPAY ==
[2019-02-09 10:25] VITALS: BMI 27.4
--- NOTE | 2019-03-03 08:00 | BI_ITS ---
MAMMOGRAPHY - BILATERAL SCREENING 3-D TOMOSYNTHESIS REASON FOR EXAM: Female, 59 years old. Bilateral Screening 3-D tomosynthesis PERTINENT HISTORY: No significant family history. TECHNIQUE: 2-D mammograms and 3-D Tomosynthesis of the breast (s) were performed. CAD was performed. COMPARISON: 04/03/2015 FINDINGS: The breast composition is composed of scattered fibroglandular density. Scattered benign calcifications are seen. No dense spiculated masses or suspicious microcalcifications are identified. No architectural distortion is identified. There is no skin thickening or retraction. There has been no significant change since the prior study. BI/SCREEN MAMM (CAD) W/MESHA BILAT IMPRESSION: No mammographic signs of malignancy. Routine yearly mammograms recommended. ASSESSMENT CATEGORY: BIRADS Category 2: Benign. A letter regarding these results will be sent to the patient by the facility within 30 days. FOLLOW UP RECOMMENDATION: Yearly follow up mammogram recommended. (A) Approximately 10% of breast cancers are not detected by mammography. A normal mammogram should not delay biopsy of a clinically suspicious abnormality. Electronically Signed: Davide Taylor MD at 16:12 EDT Tel [phone], Service support ,
--- NOTE | 2019-03-03 08:39 | BD_ITS ---
STUDY: DUAL ENERGY X-RAY ABSORPTIOMETRY / DXA REASON FOR EXAM: Female, 59 years old. The patient is postmenopausal. Loss of height. TECHNIQUE: Bone Mineral Density (BMD) measurements of lumbar spine and left hip were obtained. COMPARISON: None. FINDINGS: Lumbar Spine (L1-L4): g/cm2 (0.887) / T-score (-2.6) / Z-score (-1.4) Findings are suggestive of osteoporosis with a high fracture risk. Almost complete collapse of the T8 vertebrae. Left Femur Total: g/cm2 (0.773) / T-score (-1.9) / Z-score (-0.9) Left Femoral Neck: g/cm2 (0.751) / T-score (-2.1) / Z-score (-0.8) BD/Dexa Bone Density Study IMPRESSION: The patient is considered osteoporotic as outlined below according to World Douglas Organization (WHO) criteria with a high fracture risk. Reference Information: The T-score is the number of standard deviations above or below the standard which is normal for young adults at their peak bone mineral density. The World Health Organization (WHO) interprets the T-scores as follows: Above -1 Normal bone density Between -1 and -2.5 Osteopenia Equal to / or below -2.5 Osteoporosis As a practical clinical guideline, osteopenia may be graded as follows: Mild -1 through -1.5 Moderate -1.6 through -2.0 Severe -2.1 through -2.4 The Z-score is the number of standard deviations above or below age-matched controls. A Z-score of less than -1.5 would be considered abnormal. References: 1. NIH Osteoporosis and Related Bone Diseases http://www.osteo.org 2. International Society for Clinical Densitometry http://www.iscd.org 3. National Osteoporosis Foundation http://www.nof.org Electronically Signed: Pedro Timmons, at 9:10 EDT , Service support ,
== END ==
PROVIDERS: Family Provider Internal Medicine; PCP Internal Medicine; Referring Provider Internal Medicine; Visit Provider Internal Medicine
DX: Z12.31 Encounter for screening mammogram for malignant neoplasm of breast (principal); Z78.0 Asymptomatic menopausal state; M48.54XA Collapsed vertebra, not elsewhere classified, thoracic region, initial encounter for fracture
CPT/HCPCS: 77063; 77067; 77080

== ENCOUNTER 2019-03-05 14:43 | Inpatient (IN) | payer BC, MEDICAID, SELFPAY ==
[2019-02-09 10:25] VITALS: BMI 27.4
[2019-03-05 14:44] VITALS: BP 130/99; PULSE 132; RESP 24; TEMP 36.6; O2SAT 99; BMI 34.2
--- NOTE | 2019-03-05 15:10 | EKG12_ITS ---
Test Reason : NAUSEA/VOMITING Blood Pressure : / mmHG Vent. Rate : 113 BPM Atrial Rate : 113 BPM P-R Int : 124 ms QRS Dur : 084 ms QT Int : 318 ms P-R-T Axes : 016 056 -88 degrees QTc Int : [address] & T wave abnormality, consider inferolateral ischemia Abnormal ECG Confirmed by AIDAN THOMAS, JUSTIN ([id number]), movie editor EDITH QUINTERO ([id number]) on 03/08/2019 11:44:06 AM Referred By: Sayra Barnhart Confirmed By:JUSTIN BERMUDEZ MD
--- NOTE | 2019-03-05 15:10 | CT_ITS ---
STUDY: CT ABDOMEN AND PELVIS WITHOUT CONTRAST REASON FOR EXAM: Female, 59 years old. Abdominal pain RADIATION DOSAGE (If Supplied By Facility): DLP = ( 1042.76 ) mGycm TECHNIQUE: Transaxial images were obtained from the dome of the diaphragm to the symphysis pubis without oral contrast, and without intravenous contrast. Sagittal and coronal images were reconstructed. Individualized dose optimization techniques were used for this CT. COMPARISON: CT abdomen and pelvis July 06, 2017 FINDINGS: Evaluation of the abdominal viscera is limited in the absence of intravenous contrast. The visualized lung bases are clear. The visualized portions of the heart and pericardium are within normal limits. There are no calcified gallstones present. There is decreased hepatic attenuation. No hepatic lesions are present. The spleen is normal in size. There is mild peripancreatic edema. No pancreatic lesions are present. The adrenal glands are within normal limits. There are no obstructing renal stones. There is no hydronephrosis. Normal visualized stomach. There is no bowel obstruction or inflammation. The appendix is normal. The aorta is normal in caliber. There is mild ascites. There are no destructive osseous lesions. Old right pelvic fracture noted. Right hip arthroplasty is intact. CT/Abdomen/Pelvis W IV Cont ONLY IMPRESSION: Mild peripancreatic edema and mild ascites. Correlate clinically to assess for pancreatitis. Fatty liver. Electronically Signed: Juan Carmichael, at 18:25 EDT Tel , Service support ,
--- NOTE | 2019-03-05 15:11 | ED.DCSUM_ITS ---
- ER Visit Summary Date of Service: 03/05/19 Chief Complaint: Abdominal pain and vomiting History of Present Illness: The patient is a [address] Mc. Who reports she began vomiting yesterday at 6 AM. She is vomited multiple times. There is been streaks of blood in the vomit twice. She reports that she has upper abdominal pain that is 7 out of 10 at worst and 5-10 currently. She describes this as dull. Is worsened by movement relieved by remaining still. Patient denies any diarrhea. Her last bowel was 2 days ago. Typically she goes daily. She is passing gas. No dysuria or frequency. Patient denies sick contacts. Has not been camping out of the country. No possible bad food ex posure. Does not drink well water. No recent antibiotic use. No fatty or spicy food intolerance. Physical Examination: Vitals: 97.9, 130/99, 132, 24, 99% on room air which is not hypoxic. General: Well-nourished and well-developed. Head: Normocephalic atraumatic. Neck: Supple, no lymphadenopathy. No JVD. Nontender. Cardiovascular: Tachycardic regular rhythm. No murmurs. Respiratory: No respiratory distress. Clear to auscultation bilaterally. Abdominal: Soft, mild diffuse tenderness to palpation over the upper abdomen, distended with hypoactive bowel sounds. No guarding, rebound, or peritoneal signs. Back: Nontender. Extremities: Nontender, no edema. Skin: Normal color, no rash. Neurologic: Alert and oriented ?3. Cranial nerves II through XII are intact. Normal strength and sensation. Psych: Normal affect. Test Results: EKG shows sinus tachycardia rate of 113 with inferolateral T wave inversions. However, this is essentially unchanged from July 05, 2017. The T waves are minimally deeper. CBC shows a white count of 14.5 with an H&H of 18.2 and 53.1. Segmented neutrophils of 90 lymphocytes 4. Chem-7 shows a sodium 133, potassium of 5.6, CO2 13, anion gap of 17, glucose 141, creatinine 1.11, calcium 8.3. LFTs show a total protein of 8.8 with a globulin of 4.9. ALT is 100. AST 77. Lipase is 8267. Troponin is negative. Clinical Impression(s) from Imaging Studies Abdomen/Pelvis CT 03/05/19 15:10 IMPRESSION: Mild peripancreatic edema and mild ascites. Correlate clinically to assess for pancreatitis. Fatty liver. Electronically Signed: Juan Carmichael, at 18:25 EDT Tel , Service support , Emergency Department Course and Treatment: Patient had an IV placed. She was given 2 liters of normal saline. She is given morphine and Zofran IV. She does report that she drinks daily and has been vomiting since 6 AM yesterday. She was given a dose of Ativan IV on the chance that she has some alcohol withdrawal as a component of her tachycardia. She is resting more comfortably. Treatment Plan: Patient was discussed with Dr. Barnhart. She will be admitted to the hospital for further evaluation and treatment. Disposition: Admitted in improved condition. Impression: 1. Pancreatitis. 2. Alcohol abuse. This note was generated with [employer] dictation software. It may contain incorrect words, spelling, and punctuation that were not noted in review of the chart prior to signing ED Disposition - Plan for ED Patient: Disposition: Acute Care [facility]
[2019-03-05] MEDS: 0.9% Normal Saline 1,000 ML 1000 ML IV (15:31)
[2019-03-05] MEDS: LORazepam 2 MG/ML Syringe 1 MG IV (15:32)
[2019-03-05] MEDS: Ondansetron 4 MG/2 ML Vial IV (15:32)
[2019-03-05] MEDS: Morphine 4 MG/ML Syringe IV (15:32)
[2019-03-05 15:46] LABS: Absolute Lymphocyte Count 0.53 X10^3/uL (0.83-4.51); Absolute Neutrophil Count 13.1 X10^3/uL (2.0-7.7); Basophil# 0.04 X10^3/uL; Basophil% 0.3 % (0-1); Eosinophil# 0.02 X10^3/uL; Eosinophils% 0.1 % (0-5); Hematocrit 53.1 % (37-47); Lymphocyte # 0.53 X10^3/ul (4.0); Lymphocyte % 3.6 % (19-41); Mean Corp Hgb Conc 34.3 g/dL (32-36); Mean Corpuscular Hgb 34.9 pg (27.0-32.0); Mean Corpuscular Volume 101.9 fL (81-99); Mean Platelet Vol. 10.6 fl (6.2-12.0); Monocyte# 0.71 X10^3/uL; Monocyte% 4.9 % (0-10); NRBC Flagged by Analyzer 0 % (0-5); Neutrophil # 13.11 X10^3/uL (2.7-7.7); Neutrophil % 90.3 % (47-70); POSITIVE DIFFERENTIAL YES; Platelet Count 199 K/mm3 (150-450); RBC Distribution Width CV 14.3 % (11.6-14.6); RBC Distribution Width SD 54.3 fl (35.1-43.9); Red Blood Count 5.21 M/mm3 (4.2-5.4); White Blood Count 14.5 K/mm3 (4.4-11.0)
[2019-03-05 15:50] LABS: Differential Indicated SCAN CRITERIA MET
[2019-03-05 15:51] LABS: Hemoglobin 18.2 g/dL (12.0-15.0)
--- NOTE | 2019-03-05 16:03 | ED.RN ---
LAB CALLED FOR HEMOLYZED SPECIMEN. ARTEMIO SIDDIQUI INFORMED.
[2019-03-05 16:23] LABS: Differential Comment SCANNED
[2019-03-05] MEDS: 0.9% Normal Saline 1,000 ML 999 ML IV (17:36)
[2019-03-05 17:48] LABS: ALB/GLOB Ratio 0.8 RATIO (0.9-2.4); AST(SGOT) 77 U/L (15-37); Alanine Aminotransfer ALT/SGPT 100 U/L (13-56); Albumin, Serum 3.9 g/dL (3.2-5.0); Alkaline Phosphatase 110 U/L (45-117); Anion Gap 17 (5-15); BUN 17 mg/dL (7-18); BUN/Creat Ratio 15.3 RATIO (10-20); Calcium,Total 8.3 mg/dL (8.5-10.1); Chloride 103 mmol/L (98-107); Creatinine, Serum 1.11 mg/dL (0.55-1.02); EST Glomerular Filtration Rate 53 mL/min (>60); Est Glom Filt Rate - Afr Amer 65 mL/min (>60); Estimated Creatinine Clearance 38.71 ml/min; Globulin 4.9 g/dL (2.2-4.2); Glucose 141 mg/dL (74-106); Lipase 8267 U/L (73-393); Potassium 5.6 mmol/L (3.5-5.1); Protein, Total 8.8 g/dL (6.4-8.2); Sodium Level 133 mmol/L (136-145)
[2019-03-05 17:51] LABS: Bacteria 0 SEEN /hpf (None Seen); Mucous, Urine 0 SEEN /hpf (<or=2+); Red Blood Cells-Urine 0 SEEN /hpf (0-5)
[2019-03-05 17:57] LABS: Color, Urine Yellow (Yellow); Glucose, Dipstick Normal (Normal); Leukocyte Esterase-Dipstick Negative /ul (Negative); Nitrite-Dipstick Negative (Negative); Occult Blood-Urine 150 /ul (Negative); Protein-Dipstick 100 mg/dl (Negative); Specific Gravity, Urine 1.025 (1.002-1.030); Urine Bilirubin Dipstick Negative (Negative); Urine Clarity Clear (Clear); Urine Urobilinogen Normal (Normal)
[2019-03-05 18:16] LABS: Ketone-Dipstick 150 mg/dl (Negative)
[2019-03-05 18:18] LABS: Squamous Epithelial Cells - UA 0-5 SEEN /hpf (5-10); White Blood Cells 0-5 SEEN /hpf (0-5)
[2019-03-05 18:36] VITALS: BP 138/90; PULSE 100; RESP 17; TEMP 36.9; O2SAT 96
[2019-03-05 19:37] VITALS: BP 152/98; PULSE 98; RESP 14; TEMP 36.3; O2SAT 98; BMI 25.8
[2019-03-05 19:40] VITALS: PULSE 101
[2019-03-05 20:01] LABS: Magnesium 2.2 mg/dL (1.6-2.6)
[2019-03-05] MEDS: LORazepam 1 MG Tablet PO (22:09)
[2019-03-05] MEDS: traZODone 50 MG Tablet PO (22:09)
[2019-03-05] MEDS: Heparin Injection (Vial) 5,000 UNIT/ML VIAL 5000 UNIT SC (22:09)
--- NOTE | 2019-03-05 23:02 | PCM.HP.STD ---
Problem List (1) Acute pancreatitis Status: Acute Qualifiers: Pancreatitis type: alcohol induced Acute pancreatitis complication: unspecified Qualified Code(s): K85.20 - Alcohol induced acute pancreatitis without necrosis or infection (2) Hyperkalemia Status: Acute (3) Acute kidney injury Status: Acute (4) Bipolar disorder Status: Chronic Qualifiers: Active/Remission status: currently active Current episode severity: unspecified (5) Alcohol use disorder Status: Chronic History of Present Illness Date of Admission: 03/05/19 Chief Complaint: Abdominal pain, nausea and vomiting ongoing for 2 days The patient is a 59 year old F past medical history of bipolar type II, chronic alcohol use disorder who presented with vomiting that started a day before admission. Patient admits to vomiting several times and noticing streaks of blood in her vomitus twice. She had dull abdominal pain that is worse with vomiting and movement, no relieving factors. Patient denies any diarrhea. Had a large bowel movement 2 days prior. Denies any fever or chills. She is also seeking help for quitting alcohol use. She drinks about 3-4 drinks of vodka a day. She complains of dizziness on exertion with unsteady gait. Denies chest pain or palpitations. Vitals in the ED showed 97.9F, heart rate 132, blood pressure was 130/99, respiratory rate was 24, SPO2 is 99% on room air. Her admitting blood work showed RBC count of 14.5, hemoglobin 18.2, platelet count 199, sodium is 133, potassium 5.6, chloride 103, bicarbonate is 13, anion gap of 17, BUN is 17, creatinine 1.11, AST 77, ALT is 100, ALP is 110, CT of the Abdomen/pelvis is positive for mild peripancreatic edema and ascites. Her lipase is 8267. Past Medical History Past Medical History (Chronic Problems): Chronic Problems (Last Updated 02/09/19 @ 10:20 by Leni Luong) Bipolar disorder (Chronic) Alcohol use disorder (Chronic) Medical History: Medical History (Last Updated 02/09/19 @ 10:20 by Leni Luong) Arthritis M19.90 Diarrhea R19.7 History of back pain Z87.39 History of neck pain Z87.39 Incontinence R32 Osteoporosis M81.0 Scoliosis M41.9 Allergies No Known Allergies Allergy (Verified 03/05/19 14:46) Home Medications: Ambulatory Orders Medication Instructions Recorded Buspirone HCl 10 mg PO TID PRN PRN 07/05/17 ibuprofen 200 mg tablet 400 mg PO DAILY PRN PRN 11/27/18 clobetasol 0.05 % shampoo 1 applic TOPICAL DAILY 7 Days #118 02/09/19 ml Aripiprazole 10 mg PO DAILY 03/05/19 Calcium Carbonate/Vitamin D3 2 tab PO DAILY 03/05/19 [Calcium 600 + Vit D Tablet] Surgical History: Surgical History (Last Updated 02/09/19 @ 10:21 by Leni Luong) History of hip replacement Z96.649 History of tubal ligation Z98.51 Surgical History: total hip arthroplasty, - - Tubal ligation Psychiatric History: Bipolar 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 Denies: Chills, Fever, Malaise, Weight Change Eyes: Denies: Blurred vision, Cataracts, Conjunctivae Inflammation, Pain, Redness, Vision Change HEENT: Denies: Difficulty Hearing, Difficulty Swallowing, Head Aches, Hearing Changes, Sinus Congestion, Sinus Drainage Cardiovascular: Denies: Chest Pain, Claudication, Orthopnea, Palpitations, Paroxysmal Noc. Dyspnea Respiratory: Denies: Cough, Hemoptysis, Shortness of Breath, Shortness of breath at rest, Shortness of breath upon exertion, Sputum production Gastrointestinal: Reports: Abdominal Pain, Hematemesis, Nausea, Vomiting Genitourinary: Denies: Dysuria, Frequency, Incontinence Gynecological: Denies: Breast symptoms, Excessively long or heavy periods, Vaginal discharge, Vaginal itching Musculoskeletal: Denies: Joint Pain, Joint stiffness, Joint swelling, Joint Tenderness Skin: Denies: Rash, Wounds Neurological: Denies: Numbness, Tingling, Focal weakness Psychiatric: Denies: Anxiety, Depression, Homicidal Ideations, Suicidal Ideations Hematologic/ Lymphatic: Denies: Easy Bruising, Easy Bleeding VTE Information - Inpt Only VTE Present on Admission: No VTE Pharm Prophylaxis ordered?: Yes Patient Problems: Active and Suspected Problems (Last Updated 02/09/19 @ 10:20 by Leni Luong) Acute pancreatitis (Acute) Hyperkalemia (Acute) Acute kidney injury (Acute) - Physical Exam General: Alert, Oriented x3, Cooperative, - - Appears unwell HEENT: Atraumatic, PERRLA, EOMI, Normocephalic Oral: Dry Mucosa Neck: Supple Lungs: Clear to auscultation, Normal air movement Cardiovascular: Regular rate, Regular Rhythm, Normal S1, Normal S2, Tachycardic Abdomen: Bowel Sounds Present, Soft, Non-Distended, No Hepato-splenomegaly, Tender - Epigastric tenderness without guarding or rebound tenderness Extremities: No edema Skin: No rashes, No breakdown Musculoskeletal: No Tenderness to Palpation of Joints or Extremities Lymphatic: No Cervical, Supraclavicular, or Inguinal Adenopathy Neurological: Cranial nerves II-XII grossly intact, Neuro grossly intact Psych/Mental Status: Normal Affect, Appropriate Vital Signs Temp Pulse Resp BP Pulse Ox 97.3 F L 101 H 14 152/98 H 98 03/05/19 19:37 03/05/19 19:40 03/05/19 19:37 03/05/19 19:37 03/05/19 19:37 Oxygen Delivery Method Room Air Weight: 74.843 kg Body Mass Index (BMI) 25.8 Intake and Output for Last 24 Hours 03/03/19 03/04/19 03/05/19 23:59 23:59 23:59 Intake Total 1999 Balance 1999 Laboratory Tests Past 24 Hrs 03/05/19 03/05/19 03/05/19 15:25 15:25 16:58 WBC 14.5 H RBC 5.21 Hgb 18.2 H* Hct 53.1 H MCV 101.9 H MCH 34.9 H MCHC 34.3 RDW Std Deviation 54.3 H RDW Coeff of Laxmi 14.3 Plt Count 199 MPV 10.6 Immature Gran % (Auto) 0.800 Neut % (Auto) 90.3 H Lymph % (Auto) 3.6 L [place] % (Auto) 4.9 Eos % (Auto) 0.1 Baso % (Auto) 0.3 Absolute Neuts (auto) 13.1 H Absolute Lymphs (auto) 0.53 L Nucleated RBC % 0 Differential Comment SCANNED Diff Path Review May foll Sodium Cancelled 133 L Potassium Cancelled 5.6 H Chloride Cancelled 103 Carbon Dioxide Cancelled 13.0 L Anion Gap Cancelled 17 H BUN Cancelled 17 Creatinine Cancelled 1.11 H Estim Creat Clear Calc Cancelled 38.71 Est GFR (MDRD) Af Amer Cancelled 65 Est GFR (MDRD) Non-Af Cancelled 53 L BUN/Creatinine Ratio Cancelled 15.3 Glucose Cancelled 141 H Calcium Cancelled 8.3 L Magnesium Total Bilirubin Cancelled 0.80 AST Cancelled 77 H ALT Cancelled 100 H Alkaline Phosphatase Cancelled 110 Troponin I Cancelled < 0.015 Total Protein Cancelled 8.8 H Albumin Cancelled 3.9 Globulin Cancelled 4.9 H Albumin/Globulin Ratio Cancelled 0.8 L Lipase Cancelled 8267 H Urine Color Urine Clarity Urine pH Ur Specific [place] Urine Protein Urine Glucose (UA) Urine Ketones Urine Occult Blood Urine Nitrite Urine Bilirubin Urine Urobilinogen Ur Leukocyte Esterase Urine RBC Urine WBC Ur Squamous Epith Cells Urine Bacteria Urine Mucus 03/05/19 03/05/19 16:58 17:45 WBC RBC Hgb Hct MCV MCH MCHC RDW Std Deviation RDW Coeff of Laxmi Plt Count MPV Immature Gran % (Auto) Neut % (Auto) Lymph % (Auto) [place] % (Auto) Eos % (Auto) Baso % (Auto) Absolute Neuts (auto) Absolute Lymphs (auto) Nucleated RBC % Differential Comment Diff Path Review Sodium Potassium Chloride Carbon Dioxide Anion Gap BUN Creatinine Estim Creat Clear Calc Est GFR (MDRD) Af Amer Est GFR (MDRD) Non-Af BUN/Creatinine Ratio Glucose Calcium Magnesium 2.2 Total Bilirubin AST ALT Alkaline Phosphatase Troponin I Total Protein Albumin Globulin Albumin/Globulin Ratio Lipase Urine Color Yellow Urine Clarity Clear Urine pH 5.0 Ur Specific [place] 1.025 Urine Protein 100 H Urine Glucose (UA) Normal Urine Ketones 150 H Urine Occult Blood 150 H Urine Nitrite Negative Urine Bilirubin Negative Urine Urobilinogen Normal Ur Leukocyte Esterase Negative Urine RBC 0 SEEN Urine WBC 0-5 SEEN Ur Squamous Epith Cells 0-5 SEEN Urine Bacteria 0 SEEN Urine Mucus 0 SEEN Assessment/Plan All Active Problems (Last Updated 02/09/19 @ 10:20 by Leni Luong) Acute pancreatitis (Acute) Hyperkalemia (Acute) Acute kidney injury (Acute) Compression fracture of thoracic spine, non-traumatic (Acute) Strain of thoracic spine (Acute) Mid-back pain, acute (Acute) Low back pain (Acute) Acute right flank pain (Acute) 59 year old F past medical history of bipolar type II, chronic alcohol use disorder who presented with vomiting that started a day before admission. 1. Acute pancreatitis, alcohol related, admitting lipase is a 267, confirmed on CT of the abdomen and pelvis Plan: Admit to PCU, monitor on telemetry, IV fluids, keep n.p.o., advance diet as could be tolerated 2. Possible alcohol withdrawal, patient is tachycardic, would monitor on alcohol withdrawal protocol 3. Acute kidney injury, prerenal from dehydration from persistent nausea and vomiting Admitting creatinine is 1.11, previous creatinine was 0.7, will continue on IV fluids, repeat blood work in a.m. 4. Hyperkalemia, likely secondary to MARILEE, repeat blood work and in am 5. Leukocytosis, likely reactive, no signs of sepsis, blood work in a.m. 6. Elevated AST/ALT, likely alcohol-related, no right upper quadrant tenderness on exam Repeat blood work in a.m. 7. Bipolar disorder, on Abilify 8. DVt PPx- Heparin SC Code Visit Inpatient E&M: 63038 Init Hosp L3
[2019-03-05 23:30] VITALS: PULSE 115
[2019-03-05] MEDS: Lactated Ringers 1,000 ML 200 ML IV (23:36)
[2019-03-05 23:58] LABS: Anion Gap 15 (5-15); BUN 13 mg/dL (7-18); BUN/Creat Ratio 14.8 RATIO (10-20); Calcium,Total 8.1 mg/dL (8.5-10.1); Chloride 106 mmol/L (98-107); Creatinine, Serum 0.88 mg/dL (0.55-1.02); EST Glomerular Filtration Rate 70 mL/min (>60); Est Glom Filt Rate - Afr Amer 85 mL/min (>60); Estimated Creatinine Clearance 66.11 ml/min; Glucose 139 mg/dL (74-106); Potassium 4.3 mmol/L (3.5-5.1); Sodium Level 134 mmol/L (136-145)
[2019-03-06] VITALS (10 sets, daily range): BP systolic 118–136; BP diastolic 71–88; PULSE 97–113; RESP 16–18; TEMP 36.5–37.4; O2SAT 93–96
[2019-03-06] MEDS: LORazepam 1 MG Tablet PO ×5 (04:24→22:54)
[2019-03-06] MEDS: Lactated Ringers 1,000 ML 200 ML IV ×2 (04:25→09:21)
[2019-03-06] MEDS: Heparin Injection (Vial) 5,000 UNIT/ML VIAL 5000 UNIT SC ×3 (05:48→21:07)
[2019-03-06 06:43] LABS: Absolute Lymphocyte Count 0.43 X10^3/uL (0.83-4.51); Absolute Neutrophil Count 8.7 X10^3/uL (2.0-7.7); Basophil# 0.02 X10^3/uL; Basophil% 0.2 % (0-1); Eosinophil# 0.06 X10^3/uL; Eosinophils% 0.6 % (0-5); Hematocrit 40.9 % (37-47); Hemoglobin 14.3 g/dL (12.0-15.0); Lymphocyte # 0.43 X10^3/ul (4.0); Lymphocyte % 4.3 % (19-41); Mean Corpuscular Hgb 34.4 pg (27.0-32.0); Mean Corpuscular Volume 98.3 fL (81-99); Mean Platelet Vol. 10.5 fl (6.2-12.0); Monocyte# 0.75 X10^3/uL; Monocyte% 7.5 % (0-10); NRBC Flagged by Analyzer 0 % (0-5); Neutrophil # 8.65 X10^3/uL (2.7-7.7); Neutrophil % 86.8 % (47-70); POSITIVE DIFFERENTIAL YES; Platelet Count 148 K/mm3 (150-450); RBC Distribution Width CV 14.4 % (11.6-14.6); RBC Distribution Width SD 51.8 fl (35.1-43.9); Red Blood Count 4.16 M/mm3 (4.2-5.4)
[2019-03-06 06:49] LABS: Differential Indicated SCAN CRITERIA MET
[2019-03-06 07:04] LABS: ALB/GLOB Ratio 0.8 RATIO (0.9-2.4); AST(SGOT) 44 U/L (15-37); Alanine Aminotransfer ALT/SGPT 67 U/L (13-56); Albumin, Serum 3.1 g/dL (3.2-5.0); Alkaline Phosphatase 82 U/L (45-117); Anion Gap 12 (5-15); BUN 11 mg/dL (7-18); BUN/Creat Ratio 13.9 RATIO (10-20); Chloride 109 mmol/L (98-107); Creatinine, Serum 0.79 mg/dL (0.55-1.02); EST Glomerular Filtration Rate 79 mL/min (>60); Est Glom Filt Rate - Afr Amer 95 mL/min (>60); Estimated Creatinine Clearance 73.64 ml/min; Globulin 3.8 g/dL (2.2-4.2); Glucose 110 mg/dL (74-106); Potassium 3.9 mmol/L (3.5-5.1); Protein, Total 6.9 g/dL (6.4-8.2); Sodium Level 138 mmol/L (136-145)
[2019-03-06] MEDS: Thiamine Hydrochloride 100 MG Tablet PO (08:18)
[2019-03-06] MEDS: Folic Acid 1 MG Tablet PO (08:18)
[2019-03-06] MEDS: Multivitamins,Therapeutic Tablet 1 TABLET PO (08:18)
[2019-03-06] MEDS: Calcium Carb/Vitamin D 1 TABLET Tablet 2 TABLET PO (09:20)
[2019-03-06] MEDS: ARIPiprazole 10 MG Tablet PO (09:20)
--- NOTE | 2019-03-06 10:58 | PCM.PN.HOSP ---
Patient Problems: Active and Suspected Problems (Last Updated 02/09/19 @ 10:20 by Leni Luong) Acute pancreatitis (Acute) Hyperkalemia (Acute) Acute kidney injury (Acute) Subjective: States that her abdominal pain has improved, though she does have some pain with deeper palpation. No acute events overnight. She states that she does not want to quit drinking even though it was explained to her that it was her drinking that created her pancreatitis. Vitals/I&O's: Vital Signs Temp Pulse Resp BP Pulse Ox 98.4 F 113 H 18 118/82 H 94 03/06/19 09:15 03/06/19 09:15 03/06/19 09:15 03/06/19 09:15 03/06/19 09:15 Oxygen Delivery Method Room Air Weight: 165 lb 12.602 oz Body Mass Index (BMI) 25.8 Intake and Output for Last 24 Hours 03/04/19 03/05/19 03/06/19 23:59 23:59 23:59 Intake Total 2109 2180.00 / 2180.00 Balance 2109 2180.00 / 2180.00 General: Alert, Oriented x3, Cooperative, - - Appears out of it at times though she responds normally to questions, vital signs are stable HEENT: Atraumatic, PERRLA, EOMI, Normocephalic Oral: Dry Mucosa Neck: Supple, No JVD Lungs: Clear to auscultation, Normal air movement, No rhonchi, No wheeze, No rales Cardiovascular: Regular rate, Regular Rhythm, Normal S1, Normal S2, No murmurs Abdomen: Soft, Non-Distended, No Hepato-splenomegaly, Tender - With deep palpation in the epigastric region Extremities: No edema, Capillary Refill Less than 3 Seconds Skin: No rashes, No breakdown Neurological: Neuro grossly intact, Sensory exam intact to light touch and pain Psych/Mental Status: Flat Affect Laboratory Results 03/05/19 15:25: WBC 14.5 H, RBC 5.21, Hgb 18.2 H*, Hct 53.1 H, MCV 101.9 H, MCH 34.9 H, MCHC 34.3, RDW Std Deviation 54.3 H, RDW Coeff of Laxmi 14.3, Plt Count 199, MPV 10.6, Immature Gran % (Auto) 0.800, Neut % (Auto) 90.3 H, Lymph % (Auto) 3.6 L, [place] % (Auto) 4.9, Eos % (Auto) 0.1, Baso % (Auto) 0.3, Absolute Neuts (auto) 13.1 H, Absolute Lymphs (auto) 0.53 L, Nucleated RBC % 0, Differential Comment SCANNED, Diff Path Review November03/05/19 15:25: Sodium Cancelled, Potassium Cancelled, Chloride Cancelled, Carbon Dioxide Cancelled, Anion Gap Cancelled, BUN Cancelled, Creatinine Cancelled, Estim Creat Clear Calc Cancelled, Est GFR (MDRD) Af Amer Cancelled, Est GFR (MDRD) Non-Af Cancelled, BUN/Creatinine Ratio Cancelled, Glucose Cancelled, Calcium Cancelled, Total Bilirubin Cancelled, AST Cancelled, ALT Cancelled, Alkaline Phosphatase Cancelled, Troponin I Cancelled, Total Protein Cancelled, Albumin Cancelled, Globulin Cancelled, Albumin/Globulin Ratio Cancelled, Lipase Cancelled 03/05/19 16:58: Sodium 133 L, Potassium 5.6 H, Chloride 103, Carbon Dioxide 13.0 L, Anion Gap 17 H, BUN 17, Creatinine 1.11 H, Estim Creat Clear Calc 38.71, Est GFR (MDRD) Af Amer 65, Est GFR (MDRD) Non-Af 53 L, BUN/Creatinine Ratio 15.3, Glucose 141 H, Calcium 8.3 L, Total Bilirubin 0.80, AST 77 H, ALT 100 H, Alkaline Phosphatase 110, Troponin I < 0.015, Total Protein 8.8 H, Albumin 3.9, Globulin 4.9 H, Albumin/Globulin Ratio 0.8 L, Lipase 8267 H 03/05/19 16:58: Magnesium 2.2 03/05/19 17:45: Urine Color Yellow, Urine Clarity Clear, Urine pH 5.0, Ur Specific [place] 1.025, Urine Protein 100 H, Urine Glucose (UA) Normal, Urine Ketones 150 H, Urine Occult Blood 150 H, Urine Nitrite Negative, Urine Bilirubin Negative, Urine Urobilinogen Normal, Ur Leukocyte Esterase Negative, Urine RBC 0 SEEN, Urine WBC 0-5 SEEN, Ur Squamous Epith Cells 0-5 SEEN, Urine Bacteria 0 SEEN, Urine Mucus 0 SEEN 03/05/19 23:27: Sodium 134 L, Potassium 4.3, Chloride 106, Carbon Dioxide 13.0 L, Anion Gap 15, BUN 13, Creatinine 0.88, Estim Creat Clear Calc 66.11, Est GFR (MDRD) Af Amer 85, Est GFR (MDRD) Non-Af 70, BUN/Creatinine Ratio 14.8, Glucose 139 H, Calcium 8.1 L 03/06/19 05:50: WBC 10.0, RBC 4.16 L, Hgb 14.3, Hct 40.9, MCV 98.3, MCH 34.4 H, MCHC 35.0, RDW Std Deviation 51.8 H, RDW Coeff of Laxmi 14.4, Plt Count 148 L, MPV 10.5, Immature Gran % (Auto) 0.600, Neut % (Auto) 86.8 H, Lymph % (Auto) 4.3 L, [place] % (Auto) 7.5, Eos % (Auto) 0.6, Baso % (Auto) 0.2, Absolute Neuts (auto) 8.7 H, Absolute Lymphs (auto) 0.43 L, Nucleated RBC % 0 03/06/19 05:50: Sodium 138, Potassium 3.9, Chloride 109 H, Carbon Dioxide 17.0 L, Anion Gap 12, BUN 11, Creatinine 0.79, Estim Creat Clear Calc 73.64, Est GFR (MDRD) Af Amer 95, Est GFR (MDRD) Non-Af 79, BUN/Creatinine Ratio 13.9, Glucose 110 H, Calcium 8.0 L, Total Bilirubin 0.90, AST 44 H, ALT 67 H, Alkaline Phosphatase 82, Total Protein 6.9, Albumin 3.1 L, Globulin 3.8, Albumin/Globulin Ratio 0.8 L Current Medications Acetaminophen (Tylenol) 650 mg PO Q6H PRN PRN PRN Reason: Mild pain 1-3/Temp > 100.7 F Aripiprazole (Abilify) 10 mg PO DAILY [facility] Last Admin: 03/06/19 09:20 Dose: 10 mg Documented by: Bisacodyl (Dulcolax) 10 mg RECTAL DAILY PRN PRN Reason: Constipation Buspirone HCl (Buspar) 10 mg PO TID PRN PRN PRN Reason: ANXIETY Calcium/Vitamin D (Os-Hao 500mg + D) 2 tablet PO DAILY [facility] Last Admin: 03/06/19 09:20 Dose: 2 tablet Documented by: [facility] ([facility]) [facility] Stop: 03/08/19 08:01 Last Admin: 03/06/19 08:18 Dose: 1 mg Documented by: Heparin Sodium (Porcine) (Heparin Na) 5,000 unit SC Q8 [facility] Last Admin: 03/06/19 05:48 Dose: 5,000 unit Documented by: Sodium Chloride () 250 mls @ 15 mls/hr IV .[id number] PRN PRN Reason: SALINE FLUSH Lactated Ringer's () 1,000 mls @ 200 mls/hr IV .Q5H [facility] Stop: 03/06/19 13:39 Last Infusion: 03/06/19 10:13 Dose: 200 mls/hr Documented by: Pantoprazole Sodium 40 mg/ (Sodium Chloride) 110 mls @ 330 mls/hr IV Q12 [facility] Last Infusion: 03/06/19 10:13 Dose: Infused Documented by: Lorazepam (Ativan) 1 mg PO Q4H [facility]; Taper Stop: 03/09/19 01:14 Last Admin: 03/06/19 09:20 Dose: 1 mg Documented by: Lorazepam (Ativan) 1 mg IV Q2H PRN PRN PRN Reason: Alcohol Withdrawal Methocarbamol (Methocarbamol) 750 mg PO Q6H PRN PRN PRN Reason: Muscle Aches Morphine Sulfate () 2 mg IV Q3H PRN PRN PRN Reason: Severe Pain (7-10/10) Multivitamins ([facility]itamin) [facility] Last Admin: 03/06/19 08:18 Dose: 1 tablet Documented by: Ondansetron HCl (Zofran) 4 mg IV Q8H PRN PRN PRN Reason: NAUSEA/VOMITING Senna (Senokot) 1 tablet PO QHS PRN PRN Reason: Constipation Sodium Chloride () 10 - 40 ml IV UD PRN PRN Reason: SALINE FLUSH Thiamine HCl (Vitamin B1) [facility] Stop: 03/08/19 08:01 Last Admin: 03/06/19 08:18 Dose: 100 mg Documented by: Trazodone HCl (Desyrel) 50 mg PO QHS [facility] Last Admin: 03/05/19 22:09 Dose: 50 mg Documented by: Medical Necessity - Tobacco Use Smoking Status: Never smoker Tobacco Use: Non-smoker Assessment/Plan All Active Problems (Last Updated 02/09/19 @ 10:20 by Leni Luong) Acute pancreatitis (Acute) Hyperkalemia (Acute) Acute kidney injury (Acute) Compression fracture of thoracic spine, non-traumatic (Acute) Strain of thoracic spine (Acute) Mid-back pain, acute (Acute) Low back pain (Acute) Acute right flank pain (Acute) 1. Acute alcohol induced pancreatitis elevated LFTs/MARILEE/alcohol withdrawal/leukocytosis resolved -Lipase on admission was 8267 -Continue with IV fluids, initial creatinine was 1.11 on admission baseline is around 0.7 -We will continue with the alcohol withdrawal protocol for now until she is able to take p.o., however will have to re-discuss with her whether or not she wants to quit drinking, if she maintains that she wants to continue drinking then the withdrawal protocol will be discontinued and beers will be added to her menu -She says that she has 3-4 full drinks a day of vodka 2. Bipolar disorder -Continue with Karol DVT: Heparin Code Visit Inpatient E&M: 53494 Subs Hosp L2
--- NOTE | 2019-03-06 17:00 | CASEMGMT ---
Social Work Referral: ETOH Abuse Informant: RN Case Manger Met with patient in room. This social services analyst introduced self as well as social services analyst role. Patient agreeable to speaking with this social services analyst. This social services analyst broaching topic of patient alcohol abuse. Patient stating to consume 3-4 juice size glasses of vodka daily. Patient stating that the vodka is not strong. Patient stating to have been an alcoholic when patient was going through menopause. Patient stating that at that time patient was drinking 3 bottles of wine daily plus vodka. Patient stating I am not an alcoholic now. Patient stating to have had help from [facility] and to have been in the inpatient treatment program twice. Patient stating that the longest stay was 72 days. Patient stating I just like to drink. Patient does not identify any mental health history or stressors in life. Patient stating I enjoy drinking. Patient stating to be aware of AA and to attend at times. Patient stating to plan to return to my lifestyle. This social services analyst offered resources, patient declining stating I know what I need to do. Active listening and support provided. Gurvinder ARELLANO, LYNN
[2019-03-06] MEDS: traZODone 50 MG Tablet PO (22:54)
[2019-03-07] VITALS (11 sets, daily range): BP systolic 112–132; BP diastolic 66–78; PULSE 97–121; RESP 17–20; TEMP 36.7–37; O2SAT 92–94
[2019-03-07] MEDS: LORazepam 1 MG Tablet PO ×3 (05:15→16:46)
[2019-03-07] MEDS: Heparin Injection (Vial) 5,000 UNIT/ML VIAL 5000 UNIT SC ×3 (05:15→21:23)
--- NOTE | 2019-03-07 08:20 | PCM.PN.HOSP ---
Patient Problems: Active and Suspected Problems (Last Updated 02/09/19 @ 10:20 by Leni Luong) Acute pancreatitis (Acute) Hyperkalemia (Acute) Acute kidney injury (Acute) Subjective: States that she is feeling a little bit better, and would like to try something to eat Vitals/I&O's: Vital Signs Temp Pulse Resp BP Pulse Ox 98.1 F 97 18 122/71 H 94 03/07/19 03:05 03/07/19 07:00 03/07/19 03:05 03/07/19 03:05 03/07/19 03:05 Oxygen Delivery Method Room Air Weight: 167 lb 1.766 oz Body Mass Index (BMI) 25.8 Intake and Output for Last 24 Hours 03/05/19 03/06/19 03/07/19 23:59 23:59 23:59 Intake Total 2109 3333.33 / 3333.33 50 / 50 Balance 2109 3333.33 / 3333.33 50 / 50 General: Alert, Oriented x3, Cooperative, - - Appears out of it at times though she responds normally to questions and is slow to answer questions, vital signs are stable HEENT: Atraumatic, PERRLA, EOMI, Normocephalic Oral: Dry Mucosa Neck: Supple, No JVD Lungs: Clear to auscultation, Normal air movement, No rhonchi, No wheeze, No rales Cardiovascular: Regular rate, Regular Rhythm, Normal S1, Normal S2, No murmurs Abdomen: Soft, Non-Distended, No Hepato-splenomegaly, Tender - With deep palpation in the epigastric region Extremities: No edema, Capillary Refill Less than 3 Seconds Skin: No rashes, No breakdown Neurological: Neuro grossly intact, Sensory exam intact to light touch and pain Psych/Mental Status: Flat Affect Current Medications Acetaminophen (Tylenol) 650 mg PO Q6H PRN PRN PRN Reason: Mild pain 1-3/Temp > 100.7 F Aripiprazole (Abilify) 10 mg PO DAILY [facility] Last Admin: 03/06/19 09:20 Dose: 10 mg Documented by: Bisacodyl (Dulcolax) 10 mg RECTAL DAILY PRN PRN Reason: Constipation Buspirone HCl (Buspar) 10 mg PO TID PRN PRN PRN Reason: ANXIETY Calcium/Vitamin D (Os-Hao 500mg + D) 2 tablet PO DAILY [facility] Last Admin: 03/06/19 09:20 Dose: 2 tablet Documented by: Folic Acid (Folic Acid) [facility] Stop: 03/08/19 08:01 Last Admin: 03/06/19 08:18 Dose: 1 mg Documented by: Heparin Sodium (Porcine) (Heparin Na) 5,000 unit SC Q8 [facility] Last Admin: 03/07/19 05:15 Dose: 5,000 unit Documented by: Sodium Chloride () 250 mls @ 15 mls/hr IV .[id number] PRN PRN Reason: SALINE FLUSH Pantoprazole Sodium 40 mg/ (Sodium Chloride) 110 mls @ 330 mls/hr IV Q12 [facility] Last Infusion: 03/06/19 21:27 Dose: Infused Documented by: Lorazepam (Ativan) 1 mg PO Q6H [facility]; Taper Stop: 03/09/19 01:14 Last Admin: 03/07/19 05:15 Dose: 1 mg Documented by: Lorazepam (Ativan) 1 mg IV Q2H PRN PRN PRN Reason: Alcohol Withdrawal Methocarbamol (Methocarbamol) 750 mg PO Q6H PRN PRN PRN Reason: Muscle Aches Morphine Sulfate () 2 mg IV Q3H PRN PRN PRN Reason: Severe Pain (7-10/10) Multivitamins (Multivitamin) [facility] Last Admin: 03/06/19 08:18 Dose: 1 tablet Documented by: Ondansetron HCl (Zofran) 4 mg IV Q8H PRN PRN PRN Reason: NAUSEA/VOMITING Senna (Senokot) 1 tablet PO QHS PRN PRN Reason: Constipation Sodium Chloride () 10 - 40 ml IV UD PRN PRN Reason: SALINE FLUSH Thiamine HCl (Vitamin B1) [facility] Stop: 03/08/19 08:01 Last Admin: 03/06/19 08:18 Dose: 100 mg Documented by: Trazodone HCl (Desyrel) 50 mg PO QHS [facility] Last Admin: 03/06/19 22:54 Dose: 50 mg Documented by: Medical Necessity - Tobacco Use Smoking Status: Never smoker Tobacco Use: Non-smoker Assessment/Plan All Active Problems (Last Updated 02/09/19 @ 10:20 by Leni Luong) Acute pancreatitis (Acute) Hyperkalemia (Acute) Acute kidney injury (Acute) Compression fracture of thoracic spine, non-traumatic (Acute) Strain of thoracic spine (Acute) Mid-back pain, acute (Acute) Low back pain (Acute) Acute right flank pain (Acute) 1. Acute alcohol induced pancreatitis elevated LFTs/MARILEE/alcohol withdrawal/leukocytosis resolved -Lipase on admission was 8267 -Continue with IV fluids, initial creatinine was 1.11 on admission baseline is around 0.7 -We will continue with the alcohol withdrawal protocol, she states that she goes to AA and 12 step programs and that she needs to cut back onher drinking. -She says that she has 3-4 full drinks a day of vodka -Start a low-fat diet 2. Bipolar disorder -Continue with Karol DVT: Heparin Code Visit Inpatient E&M: 50557 Subs Hosp L2
[2019-03-07] MEDS: Thiamine Hydrochloride 100 MG Tablet PO (08:48)
[2019-03-07] MEDS: Multivitamins,Therapeutic Tablet 1 TABLET PO (08:48)
[2019-03-07] MEDS: 0.9% NaCl Peripheral Flush Adult/Peds IV ×3 (08:48→23:08)
[2019-03-07] MEDS: 0.9% NaCl IVPB Med Flush (250 mL) 15 ML IV (08:48)
[2019-03-07] MEDS: Folic Acid 1 MG Tablet PO (08:48)
[2019-03-07] MEDS: Calcium Carb/Vitamin D 1 TABLET Tablet 2 TABLET PO (08:48)
[2019-03-07] MEDS: ARIPiprazole 10 MG Tablet PO (08:48)
[2019-03-08 01:12] VITALS: BP 119/71; PULSE 98; RESP 19; TEMP 36.4; O2SAT 92
[2019-03-08] MEDS: LORazepam 1 MG Tablet PO ×2 (01:15→10:23)
[2019-03-08 03:00] VITALS: PULSE 95
[2019-03-08 05:11] VITALS: BP 139/99; PULSE 99; RESP 18; TEMP 36.7; O2SAT 95
[2019-03-08] MEDS: Heparin Injection (Vial) 5,000 UNIT/ML VIAL 5000 UNIT SC (05:36)
[2019-03-08 06:37] LABS: Anion Gap 13 (5-15); BUN 9 mg/dL (7-18); BUN/Creat Ratio 16.5 RATIO (10-20); Calcium,Total 8.6 mg/dL (8.5-10.1); Chloride 102 mmol/L (98-107); Creatinine, Serum 0.55 mg/dL (0.55-1.02); EST Glomerular Filtration Rate 121 mL/min (>60); Est Glom Filt Rate - Afr Amer 146 mL/min (>60); Estimated Creatinine Clearance 105.78 ml/min; Glucose 99 mg/dL (74-106); Potassium 2.8 mmol/L (3.5-5.1); Sodium Level 138 mmol/L (136-145)
[2019-03-08 07:04] VITALS: PULSE 94
[2019-03-08 07:42] LABS: Absolute Lymphocyte Count 1.27 X10^3/uL (0.83-4.51); Absolute Neutrophil Count 4.9 X10^3/uL (2.0-7.7); Basophil# 0.01 X10^3/uL; Basophil% 0.1 % (0-1); Eosinophil# 0.17 X10^3/uL; Eosinophils% 2.4 % (0-5); Hematocrit 39.8 % (37-47); Hemoglobin 14.6 g/dL (12.0-15.0); Lymphocyte # 1.27 X10^3/ul (4.0); Lymphocyte % 18.3 % (19-41); Mean Corp Hgb Conc 36.7 g/dL (32-36); Mean Corpuscular Hgb 34.8 pg (27.0-32.0); Mean Corpuscular Volume 94.8 fL (81-99); Mean Platelet Vol. 10.8 fl (6.2-12.0); Monocyte# 0.58 X10^3/uL; Monocyte% 8.4 % (0-10); NRBC Flagged by Analyzer 0 % (0-5); Neutrophil # 4.88 X10^3/uL (2.7-7.7); Neutrophil % 70.4 % (47-70); Platelet Count 137 K/mm3 (150-450); RBC Distribution Width CV 14.6 % (11.6-14.6); RBC Distribution Width SD 50.5 fl (35.1-43.9); White Blood Count 6.9 K/mm3 (4.4-11.0)
[2019-03-08 08:56] VITALS: BP 126/80; PULSE 107; RESP 18; TEMP 36.8; O2SAT 95
[2019-03-08] MEDS: Multivitamins,Therapeutic Tablet 1 TABLET PO (09:04)
[2019-03-08] MEDS: Folic Acid 1 MG Tablet PO (09:04)
[2019-03-08] MEDS: Calcium Carb/Vitamin D 1 TABLET Tablet 2 TABLET PO (09:04)
[2019-03-08] MEDS: ARIPiprazole 10 MG Tablet PO (09:04)
[2019-03-08] MEDS: Thiamine Hydrochloride 100 MG Tablet PO (09:04)
[2019-03-08] MEDS: 0.9% NaCl Peripheral Flush Adult/Peds IV (09:05)
[2019-03-08 09:32] LABS: Magnesium 1.8 mg/dL (1.6-2.6); Phosphorus 1.2 mg/dL (2.5-4.9)
--- NOTE | 2019-03-08 11:23 | PCM.DC ---
- Discharge Diagnoses Current Active Problems: Current Active and Chronic Problems (Last Updated 02/09/19 @ 10:20 by Leni Luong) Acute pancreatitis (Acute) Hyperkalemia (Acute) Acute kidney injury (Acute) Bipolar disorder (Chronic) Alcohol use disorder (Chronic) You will use the following diet at home:: Cardiac, Other - no alcohol at all Your food should be the consistency of: Regular Your liquids should be the consistency of: Regular/Thin Discharge Activity: Return to Normal Activity Allergies/Adverse Reactions: Allergies No Known Allergies Allergy (Verified 03/05/19 14:46) Medications to take at Discharge Buspirone HCl 10 mg PO TID PRN PRN 07/05/17 Aripiprazole 10 mg PO DAILY 03/05/19 Calcium Carbonate/Vitamin D3 [Calcium 600 + Vit D Tablet] 2 tab PO DAILY 03/05/19 Multivitamins,Therapeutic [Multivitamin] 1 tablet PO DAILYCM tablet 03/08/19 Pantoprazole Sodium [Protonix] 40 mg PO DAILY #30 tab 03/08/19 The following prescriptions were given: Pantoprazole Sodium [Protonix] 40 mg PO DAILY #30 tab Transmission Status: Pending to [facility] Primary Care Physician: Edward Mc MD [Primary Care Provider] - Please follow up with your Primary Care Physician in: 1-2 weeks Test Results: Test results from this visit will be discussed in further detail at your follow-up appointment, if applicable. Proposed Discharge Date: 03/08/19
--- NOTE | 2019-03-08 11:24 | CASEMGMT ---
Addendum entered by Shadia Townsend 03/08/19 13:13: Therapy is recommending wheeled walker for pt at this time and pt is agreeable. Pt was given choices of local DME companies and pt states would like [employer] at this time as they can deliver to her room at this time. Referral faxed to [employer] and per rep at [facility], they will deliver walker to pt's room FAITH. Pt voices no further questions/concerns/needs at this time. [place] RN PHILL Original Note: RN CM assessment: Face to Face with patient for initial transition planning/care coordination assessment. RN CM introduced self and role at [facility], pt voices understanding and consents to assessment at this time. Pt is lying in bed in no distress at this time but is falling asleep when not stimulated verbally. Pt is A/Ox4 at this time and answers all questions appropriately at this time. Care providers, pharmacy, and demographics verified at this time. PCP: Jesusita Specialists: raffaele Chow Pharmacy: [facility] Insurance: [facility] community plan Prescription Benefit: [facility] community plan Living Will/HPOA: Pt states does not have LW/HPOA, but states would like AD info at this time. Brandi LINARES aware, voices understanding. LNOK: Roberta Byrd, friend Living Arrangements: Pt states lives alone in 1 story apartment and states no concerns at home at this time. Pt states is independent with ADL's. Transportation: Pt states drives self and states no transportation concerns at this time. DME/HHC: Pt states has no current DME or need for any at this time. Pt states has had HHC in the past but states 'I can do those exercises by myself, I don't need anybody coming out.' Pt states has been to [facility] in the past as well. Pt states no concerns with going home at time of discharge. Pt states is currently unemployed but used to be on 'partial disability.' Pt states does not smoke but does drink 3-5 vodka drinks daily and this RN CM once again offered resources/SW to pt at this time and pt declines. Pt states, in reference to ETOH abuse resources, 'I know what they all are.' Pt states no further questions/concerns/needs at this time. CM to follow for any further discharge planning/needs. Advised pt to ask for CM if any further questions/concerns/needs arise, voices understanding. Pt Goal: Home Plan: Home Cheikh SIDDIQUI CM
[2019-03-08] MEDS: Magnesium Oxide 400 MG Tablet 800 MG PO (11:57)
[2019-03-08] MEDS: Na Biphos/Potassium Phosphate PACKET 1 PACKET PO (12:07)
[2019-03-08 13:01] LABS: Potassium 3.6 mmol/L (3.5-5.1)
--- NOTE | 2019-03-08 13:03 | PCM.DC.SUM ---
<Сергей Collazo - Last Filed: 03/08/19 13:03> Discharge Date and Diagnosis Date of Admission: 03/05/19 Date of Discharge: 03/08/19 - Primary Discharge Diagnosis Active and Suspected Problems (Last Updated 02/09/19 @ 10:20 by Leni Luong) Acute pancreatitis (Acute) 2/2 alcoholism Alcoholism with acute withdrawal Hypokalemia, hypophosphatemia Acute kidney injury (Acute) Bipolar disorder - Secondary Discharge Diagnosis Chronic Problems (Last Updated 02/09/19 @ 10:20 by Leni Luong) Bipolar disorder (Chronic) Alcohol use disorder (Chronic) Hospital Course and Treatment Imaging Results: CT/Abdomen/Pelvis W IV Cont ONLY IMPRESSION: Mild peripancreatic edema and mild ascites. Correlate clinically to assess for pancreatitis. Fatty liver. Operations: None Procedures: None Summary of Care Provided: Hospital Course: The patient is a 59 year old F with pmhx of alcoholism and bipolar disorder who presented to the ER with c/o abdominal pain with nausea and vomiting for the 2 days leading to admission. She had been drinking 3-4 drinks of vodka per day as well. Her lipase was elevated and CT of the abdomen was consistent with pancreatitis. She was admitted to the PCU and treated with supportive care and for alcohol withdrawal on the CIWA protocol. She did well and we were able to advance her diet to a regular diet. She had no further pain, nausea, or vomiting and no withdrawal symptoms. She unfortunately would not commit to any plan to stay sober once discharged. I re-emphasized the importance of complete alcohol cessation, she argued that she has cut back from what she previously drank. She was discharged home in stable condition. She will need follow up with her PCP in 1-2 weeks. This patient was seen by Сергей Collazo PA-C under the supervision of Dr. Jefferson.[] - Physical Exam General: Alert, Oriented x3, Cooperative HEENT: Atraumatic, PERRLA, EOMI, Normocephalic Neck: Supple, No JVD, Negative Carotid Bruits Lungs: Clear to auscultation, Normal air movement Cardiovascular: Regular rate, No murmurs Abdomen: Bowel Sounds Present, Soft, Non Tender Extremities: No edema, Capillary Refill Less than 3 Seconds Skin: No rashes, No breakdown Musculoskeletal: No Tenderness to Palpation of Joints or Extremities Neurological: Cranial nerves II-XII grossly intact Psych/Mental Status: Appropriate, Flat Affect, Alert and oriented to time, place, person, mood and affect Vital Signs Temp Pulse Resp BP Pulse Ox 98.3 F 107 H 18 126/80 H 95 03/08/19 08:56 03/08/19 08:56 03/08/19 08:56 03/08/19 08:56 03/08/19 08:56 Oxygen Delivery Method Room Air Weight: 166 lb 0.129 oz Body Mass Index (BMI) 25.8 Intake and Output for Last 24 Hours 03/06/19 03/07/19 03/08/19 23:59 23:59 23:59 Intake Total 3333.33 / 3333.33 1083.25 / 1083.25 481 / 481 Balance 3333.33 / 3333.33 1083.25 / 1083.25 481 / 481 Laboratory Tests Past 24 Hrs 03/08/19 03/08/19 03/08/19 05:44 05:44 05:44 WBC 6.9 RBC 4.20 Hgb 14.6 Hct 39.8 MCV 94.8 MCH 34.8 H MCHC 36.7 H RDW Std Deviation 50.5 H RDW Coeff of Laxmi 14.6 Plt Count 137 L MPV 10.8 Immature Gran % (Auto) 0.400 Neut % (Auto) 70.4 H Lymph % (Auto) 18.3 L [place] % (Auto) 8.4 Eos % (Auto) 2.4 Baso % (Auto) 0.1 Absolute Neuts (auto) 4.9 Absolute Lymphs (auto) 1.27 Nucleated RBC % 0 Sodium 138 Potassium 2.8 L Chloride 102 Carbon Dioxide 23.0 Anion Gap 13 BUN 9 Creatinine 0.55 Estim Creat Clear Calc 105.78 Est GFR (MDRD) Af Amer 146 Est GFR (MDRD) Non-Af 121 BUN/Creatinine Ratio 16.5 Glucose 99 Calcium 8.6 Phosphorus 1.2 L Magnesium 1.8 03/08/19 12:38 WBC RBC Hgb Hct MCV MCH MCHC RDW Std Deviation RDW Coeff of Laxmi Plt Count MPV Immature Gran % (Auto) Neut % (Auto) Lymph % (Auto) [place] % (Auto) Eos % (Auto) Baso % (Auto) Absolute Neuts (auto) Absolute Lymphs (auto) Nucleated RBC % Sodium Potassium 3.6 Chloride Carbon Dioxide Anion Gap BUN Creatinine Estim Creat Clear Calc Est GFR (MDRD) Af Amer Est GFR (MDRD) Non-Af BUN/Creatinine Ratio Glucose Calcium Phosphorus Magnesium Discharge Diet: - - no alcohol at all Discharge Activity: Return to Normal Activity Home Medications: Medications to take at Discharge Buspirone HCl 10 mg PO TID PRN PRN 07/05/17 Aripiprazole 10 mg PO DAILY 03/05/19 Calcium Carbonate/Vitamin D3 [Calcium 600 + Vit D Tablet] 2 tab PO DAILY 03/05/19 Multivitamins,Therapeutic [Multivitamin] 1 tab PO DAILYCM tab 03/08/19 Pantoprazole Sodium [Protonix] 40 mg PO DAILY #30 tab 03/08/19 Following Prescrptions Were Given to Patient: Pantoprazole Sodium [Protonix] 40 mg PO DAILY #30 tab Transmission Status: Received by [facility]30 Primary Care Physician: Edward Mc MD [Primary Care Provider] - Please follow up with your Primary Care Physician in: 1-2 weeks Disposition: Home Minutes spent on discharge:: 35 Patient Condition:: Stable Medical Necessity - Tobacco Use Smoking Status: Never smoker Tobacco Use: Non-smoker Meaningful Use Info Meaningful Use Diagnoses (Choose all that apply): None applicable <Srinath Jefferson - Last Filed: 03/08/19 16:56> Discharge Date and Diagnosis - Secondary Discharge Diagnosis Chronic Problems (Last Updated 02/09/19 @ 10:20 by Leni Luong) Bipolar disorder (Chronic) Alcohol use disorder (Chronic) Hospital Course and Treatment Summary of Care Provided: This patient was seen in conjunction with Сергей ROGERS. I have independently interviewed and examined the patient and reviewed pertinent history, examination findings, laboratory and plan of management. I have reviewed the note and agree with the documented findings with the few additional points. In brief, patient is admitted for abdominal pain with nausea and vomiting for 2 days, elevated lipase and CT abdomen finding consistent with acute pancreatitis. Patient has history of drinking 4-5 drinks of vodka every day. Patient was managed as per protocol of acute alcohol withdrawal on CIWA monitoring. Diet was advanced gradually after being n.p.o. in the beginning. Patient tolerated well. Alcohol cessation advice was given. Heart rate is controlled. CIWA score 0. Patient did hypokalemia hypophosphatemia which was replaced. Repeat K3.6. Discharge medication reconciliation done. Discharge follow-up instructions completed. Discharge process discussed with the patient and all questions were answered to patient's satisfaction.. Total time spent, exact 35 minutes on discharge meds reconciliation, examination, review of imaging and blood test and discussion with the patient on follow-up instructions. I have discussed my assessment with Сергей ROGERS and orders have been reviewed. [] Subjective: Seen and examined. Patient is chronic alcoholic with abuse and dependence and tolerance. Patient also has significant mental health issues with history of Bipolar disorder and on multiple psychotropic medications. Patient is slow and sluggish to respond with increased reaction time. Also has flat affect - Physical Exam General: Alert, Oriented x3, Cooperative HEENT: Atraumatic, PERRLA, EOMI, Normocephalic Neck: Supple, No JVD, Negative Carotid Bruits Lungs: Clear to auscultation, No rhonchi, No wheeze, No rales, Diminished Cardiovascular: Regular rate, Regular Rhythm, Normal S1, Normal S2, No murmurs Abdomen: Bowel Sounds Present, Soft, Non Tender, Non-Distended Extremities: No edema, Capillary Refill Less than 3 Seconds Skin: No rashes, No breakdown Musculoskeletal: No Tenderness to Palpation of Joints or Extremities, Arthritic Changes Lymphatic: No Cervical, Supraclavicular, or Inguinal Adenopathy Neurological: Cranial nerves II-XII grossly intact, Deep Tendon Reflexes 2+/4 and Symmetrical, Neuro grossly intact Psych/Mental Status: Normal Affect, Appropriate Vital Signs Temp Pulse Resp BP Pulse Ox 98.3 F 107 H 18 126/80 H 95 03/08/19 08:56 03/08/19 08:56 03/08/19 08:56 03/08/19 08:56 03/08/19 08:56 Oxygen Delivery Method Room Air Weight: 166 lb 0.129 oz Body Mass Index (BMI) 25.8 Intake and Output for Last 24 Hours 03/06/19 03/07/19 03/08/19 23:59 23:59 23:59 Intake Total 3333.33 / 3333.33 1083.25 / 1083.25 481 / 481 Balance 3333.33 / 3333.33 1083.25 / 1083.25 481 / 481 Laboratory Tests Past 24 Hrs 03/08/19 03/08/19 03/08/19 05:44 05:44 05:44 WBC 6.9 RBC 4.20 Hgb 14.6 Hct 39.8 MCV 94.8 MCH 34.8 H MCHC 36.7 H RDW Std Deviation 50.5 H RDW Coeff of Laxmi 14.6 Plt Count 137 L MPV 10.8 Immature Gran % (Auto) 0.400 Neut % (Auto) 70.4 H Lymph % (Auto) 18.3 L [place] % (Auto) 8.4 Eos % (Auto) 2.4 Baso % (Auto) 0.1 Absolute Neuts (auto) 4.9 Absolute Lymphs (auto) 1.27 Nucleated RBC % 0 Sodium 138 Potassium 2.8 L Chloride 102 Carbon Dioxide 23.0 Anion Gap 13 BUN 9 Creatinine 0.55 Estim Creat Clear Calc 105.78 Est GFR (MDRD) Af Amer 146 Est GFR (MDRD) Non-Af 121 BUN/Creatinine Ratio 16.5 Glucose 99 Calcium 8.6 Phosphorus 1.2 L Magnesium 1.8 03/08/19 12:38 WBC RBC Hgb Hct MCV MCH MCHC RDW Std Deviation RDW Coeff of Laxmi Plt Count MPV Immature Gran % (Auto) Neut % (Auto) Lymph % (Auto) [place] % (Auto) Eos % (Auto) Baso % (Auto) Absolute Neuts (auto) Absolute Lymphs (auto) Nucleated RBC % Sodium Potassium 3.6 Chloride Carbon Dioxide Anion Gap BUN Creatinine Estim Creat Clear Calc Est GFR (MDRD) Af Amer Est GFR (MDRD) Non-Af BUN/Creatinine Ratio Glucose Calcium Phosphorus Magnesium Code Visit Inpatient E&M: 58693 Subs Hosp L3
--- NOTE | 2019-03-08 13:53 | CASEMGMT ---
Social Work Received referral from RN PHILL that pt would like information on advance directives. SW met with pt. Pt stating she is discharging shortly and does not want to complete AD at this time. SW provided AD Rack Card and explained that pt can call [facility] SW department and schedule outpatient appointment to complete documents. Pt expressed understanding. SHERRILL Joshua
[2019-03-10 08:53] LABS: Pathologist Review Reviewed
== END 2019-03-08 15:29 | disposition home or self-care (01) | DRG 282 ==
LOC: ED 15:39 → PCU 19:03
PROVIDERS: Family Medicine; Physician Assistant; Admitting Provider Internal Medicine; Emergency Provider Emergency Medicine; Family Provider Internal Medicine; PCP Internal Medicine; Referring Provider Internal Medicine; Visit Provider Internal Medicine
DX: K85.20 Alcohol induced acute pancreatitis without necrosis or infection (principal); E87.5 Hyperkalemia; N17.9 Acute kidney failure, unspecified; F10.239 Alcohol dependence with withdrawal, unspecified; E87.6 Hypokalemia; E83.39 Other disorders of phosphorus metabolism; F31.9 Bipolar disorder, unspecified; Z12.31 Encounter for screening mammogram for malignant neoplasm of breast; Z78.0 Asymptomatic menopausal state; M48.54XA Collapsed vertebra, not elsewhere classified, thoracic region, initial encounter for fracture
CPT/HCPCS: 36415; 74177; 77063; 77067; 77080; 80048; 80053; 81001; 83690; 83735; 84100; 84132; 84484; 85025; 93005; 97110; 97116; 97161; 97165; 97530; 97802; 99285; J7030; J7050; J7120; Q9967; A4216; J2405

== ENCOUNTER 2019-04-02 08:00 | Outpatient (RCR) | payer OTHER, BC, SELFPAY ==
[2019-02-09 10:25] VITALS: BMI 27.4
--- NOTE | 2019-03-08 08:30 | HP.PTEVAL ---
Patient's Visit Information PRASHANT MAZARIEGOS is a 59 year old F referred to Physical Therapy by Christine Chow MD with a diagnosis of Thoracic spine strain, thoracic compression fx. Date of Evaluation: 03/03/19 Physical Therapist: Mendoza Pinto DPT - Visit Plan Frequency: 2-3x /Week Duration: 6 Weeks Plan: Start with thoracic and lumbar stretching, include HS and hip flexor stretching. 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 - Subjective Findings: Pt. is here today for here initial evaluation with diagnosis of thoracic spine pain, thoracic compression fx. Pt. reports hurting her back several weeks ago when attempting to lift a box of papers at work. 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 Pt. reports having initial pain which has improved, but is still having some symptoms. Pt. reports she has not been at work, but was recently laid off. She reports no pain down her legs or arms, but has some R sided flank pain at times. She denies N/T. Pt. is able to sleep without much limitations, but has been increasingly sedentary at home. Pt. is hopeful to increase her ROM and get back to work like activities without limitations. - Pain Thoracic spine Pain Intensity (Out of 10): 1 Pain Intensity Range: 0, 4 R side of thoracic spine Pain Intensity (Out of 10): 2 Pain Intensity Range: 0, 4 - Objective POSTURE: PT. is over wt. Pt. has general flexed posture with appearant scoliosis. She has increased thoracic kyphosis. Pt. has difficulty correcting posture. PALPATION: Pt. has increased tenderness along R sided thoracic erector spinea. Pt. has no pain with spring testing throughout thoracic spine. NEURO: Normal throughout,. ROM: lumbar spine: mod loss throughout NE, thoracic spine: mod loss throughout mild increse NW with roation bilaterally and extension. MMT: PT. has 4+/5 throughout bilateral LEs and poor coor strength. GAIT: Pt. has normal gait pattern without incerase in symptoms. - Goals Goal 1:: Pt. to be I with HEP. Goal Time Frame: 4-6 Weeks Goal 2:: Pt. to have increased core strength and B hip strength by 1/2 grade throughout effected muscle groups. Goal Time Frame: 4-6 Weeks Goal 3:: Pt. to complete all work like activities withotu increase in symptoms. Goal Time Frame: 4-6 Weeks Goal 4:: Pt. to demonstrate proper lifting mechanics to reduce stress on spine with all work like activites. Goal Time Frame: 4-6 Weeks Goal 5:: Pt. resume all work activites withotu increase in symptoms. - Rehabilitation Potential Physical Therapy Diagnosis: Pt. has signs and symptoms consistent with Thoracic spine strain, thoracic compression fx. Pt. would benefit from PT to work on ROM and strength throuhgout core and LEs. Pt. would also benefit from body mechanics and lifting training to reduce injury in the future. Rehabilitation Potential: Excellent - Anticipated Interventions Patient/Client Instruction: Educate patient on: Condition, Plan of Care, Risk Factors, Benefits of Fitness Program For the Purpose of:: To improve decision making, To facilitate caregiver knowledge, To improve self management, To prevent re-injury, To improve ability to perform tasks related to life management Therapeutic Exercise to Include: Strength training, Power training, Endurance training, Postural training, Flexibilty training, Gait and locomotor training, Active ROM, Dynamic Lumbar Stabilization, Mirlande Exercises For the Purpose of:: To decrease pain, To increase ROM, To improve nutrient delivery to tissue, To increase oxygenation perfusion, To improve muscle performance and motor function, To improve ability to perform ADL's, To increase tolerance to activity/condition/position, To improve performance and independence with ADL's, To improve ability of physical actions for home/community/work/leisure, To improve gait and locomotor functions, To decrease soft tissue restriction, To increase flexibility/ROM Cryotherapy (ice pack, ice massage): Yes Ultrasound (thermal/non thermal): Yes For the Purpose of:: To decrease pain, To increase ROM Thank you for the opportunity to evaluate your patient. For Medicare and Medicare HMO plans, please review the plan of care and approve it. It will need to be FAXED BACK to us at [phone] for Medicare purposes. For Medicare only, by signing this I certify the plan of care. Please let me know if there are questions or concerns regarding this plan of care. Physician Signature: Date:
--- NOTE | 2019-04-02 11:34 | HP.PTREVAL ---
Christine Chow MD, It has been my pleasure to treat PRASHANT MAZARIEGOS over the last 10 visits for Thoracic spine strain, thoracic compression fx. Please see the progress note below for an update on the physical therapy plan of care! Subjective: Pt. reports being about the same. She reports her pain in her R side is a better, but is feeling still throughout her whole spine. Pain is better in AMs. but worse as the day progressess. Pt. denies N/T in extremities x4. Pt. reports her original pain is better, but has general soreness/stiffness in her spine. Objective/Function: Pt. reports overall sligthly better, but is now having pain throughtout her spine. Pt. continues to have decreased ROM thorughout lumbar and thoracic spine, but has improved. Pt. has tight HS and hip flexors effecting her pelvic positoning as well. Pt. has progressed with strengthening exercises, but contiunes to be focused on her pain. Her original C9 is expireing and I recommended that she follow up with her physician at this point intime. She is Independent with her HEP at this point in time. I stressed lifting mechanics with her and stretching program which she is independent with. Plan Plan: Pt. to follow up with physician, C9 expireing soon. Goals Goal 1:: Pt. to be I with HEP. Goal Time Frame: 4-6 Weeks Goal Progress: Goal Met Goal 2:: Pt. to have increased core strength and B hip strength by 1/2 grade throughout effected muscle groups. Goal Time Frame: 4-6 Weeks Goal Progress: Goal Met Goal 3:: Pt. to complete all work like activities withotu increase in symptoms. Goal Time Frame: 4-6 Weeks Goal Progress: Progressing Goal 4:: Pt. to demonstrate proper lifting mechanics to reduce stress on spine with all work like activites. Goal Time Frame: 4-6 Weeks Goal Progress: Goal Met Goal 5:: Pt. resume all work activites withotu increase in symptoms. Anticipated Interventions Patient/Client Instruction: Educate patient on: Condition, Plan of Care, Risk Factors, Benefits of Fitness Program For the Purpose of:: To improve decision making, To facilitate caregiver knowledge, To improve self management, To prevent re-injury, To improve ability to perform tasks related to life management Therapeutic Exercise to Include: Strength training, Power training, Endurance training, Postural training, Flexibilty training, Gait and locomotor training, Active ROM, Dynamic Lumbar Stabilization, Mirlande Exercises For the Purpose of:: To decrease pain, To increase ROM, To improve nutrient delivery to tissue, To increase oxygenation perfusion, To improve muscle performance and motor function, To improve ability to perform ADL's, To increase tolerance to activity/condition/position, To improve performance and independence with ADL's, To improve ability of physical actions for home/community/work/leisure, To improve gait and locomotor functions, To decrease soft tissue restriction, To increase flexibility/ROM Cryotherapy (ice pack, ice massage): Yes Ultrasound (thermal/non thermal): Yes For the Purpose of:: To decrease pain, To increase ROM Please do not hesitate to contact me at [phone] by phone or if you have questions or concerns regarding this new plan of care! Sincerely, Mendoza Pinto DPT
--- NOTE | 2019-08-17 09:52 | HP.PTDCNRP_ITS ---
HP - Discharge Summary (1) - Patient Information PRASHANT MAZARIEGOS was seen in my office for initial evaluation on 03/03/19. The following Plan of Care was established for this patient: Initial Frequency: 2-3x /Week Initial Duration: 6 Weeks - Anticipated Interventions Patient/Client Instruction: Educate patient on: Condition, Plan of Care, Risk Factors, Benefits of Fitness Program For the Purpose of:: To improve decision making, To facilitate caregiver knowledge, To improve self management, To prevent re-injury, To improve ability to perform tasks related to life management Therapeutic Exercise to Include: Strength training, Power training, Endurance training, Postural training, Flexibilty training, Gait and locomotor training, Active ROM, Dynamic Lumbar Stabilization, Mirlande Exercises For the Purpose of:: To decrease pain, To increase ROM, To improve nutrient delivery to tissue, To increase oxygenation perfusion, To improve muscle performance and motor function, To improve ability to perform ADL's, To increase tolerance to activity/condition/position, To improve performance and independence with ADL's, To improve ability of physical actions for lia e/community/work/leisure, To improve gait and locomotor functions, To decrease soft tissue restriction, To increase flexibility/ROM Cryotherapy (ice pack, ice massage): Yes Ultrasound (thermal/non thermal): Yes For the Purpose of:: To decrease pain, To increase ROM This patient was last seen in our office 04/02/19. Pertinent comments regarding their Physical therapy will appear below: Pt. was seen in PT for her back pain. Pt. was doing well. Pt. was to follow up with physician to determine if furter PT is warranted. Pt. has not been seen in several months and will be DC from PT at this point in time. At this point I will be discontinuing this patient from physical therapy. I would be happy to see this patient again in the future if found appropriate by the physician. Thank you! Mendoza Pinto, AMINATAT
== END 2019-04-02 17:00 | disposition home or self-care (01) ==
LOC: PT 08:00
PROVIDERS: Family Provider Internal Medicine; PCP Internal Medicine; Referring Provider Orthopaedic Surgery; Visit Provider Orthopaedic Surgery
DX: S29.012D Strain of muscle and tendon of back wall of thorax, subsequent encounter (principal); S22.000D Wedge compression fracture of unspecified thoracic vertebra, subsequent encounter for fracture with routine healing
CPT/HCPCS: 97035; 97110; 97161; 97530

== ENCOUNTER → 2019-05-28 11:48 | Outpatient (CLI) | payer MEDICAID, SELFPAY ==
[2019-05-28 11:28] VITALS: BMI 25.8
[2019-05-28 14:23] LABS: ALB/GLOB Ratio 0.8 RATIO (0.9-2.4); AST(SGOT) 56 U/L (15-37); Alanine Aminotransfer ALT/SGPT 63 U/L (13-56); Albumin, Serum 4.3 g/dL (3.2-5.0); Alkaline Phosphatase 128 U/L (45-117); Amylase 363 U/L (25-115); Anion Gap 20 (5-15); BUN 14 mg/dL (7-18); BUN/Creat Ratio 14.7 RATIO (10-20); Calcium,Total 8.9 mg/dL (8.5-10.1); Chloride 100 mmol/L (98-107); Creatinine, Serum 0.95 mg/dL (0.55-1.02); EST Glomerular Filtration Rate 64 mL/min (>60); Est Glom Filt Rate - Afr Amer 77 mL/min (>60); Globulin 5.3 g/dL (2.2-4.2); Glucose 132 mg/dL (74-106); Lipase 2680 U/L (73-393); Potassium 3.7 mmol/L (3.5-5.1); Protein, Total 9.6 g/dL (6.4-8.2); Sodium Level 132 mmol/L (136-145)
[2019-05-28 14:25] LABS: Absolute Lymphocyte Count 0.89 X10^3/uL (0.83-4.51); Absolute Neutrophil Count 8.8 X10^3/uL (2.0-7.7); Basophil# 0.06 X10^3/uL; Basophil% 0.5 % (0-1); Eosinophil# 0.03 X10^3/uL; Eosinophils% 0.3 % (0-5); Hemoglobin 16.3 g/dL (12.0-15.0); Lymphocyte # 0.89 X10^3/ul (4.0); Lymphocyte % 8.1 % (19-41); Mean Corpuscular Hgb 31.2 pg (27.0-32.0); Mean Corpuscular Volume 91.8 fL (81-99); Mean Platelet Vol. 10.9 fl (6.2-12.0); Monocyte# 1.07 X10^3/uL; Monocyte% 9.7 % (0-10); NRBC Flagged by Analyzer 0 % (0-5); Neutrophil # 8.83 X10^3/uL (2.7-7.7); Neutrophil % 80.3 % (47-70); Platelet Count 187 K/mm3 (150-450); RBC Distribution Width SD 44.3 fl (35.1-43.9); Red Blood Count 5.23 M/mm3 (4.2-5.4)
== END ==
PROVIDERS: Family Provider Internal Medicine; PCP Internal Medicine; Visit Provider Nurse Practitioner Family
DX: R10.9 Unspecified abdominal pain (principal); R11.2 Nausea with vomiting, unspecified
CPT/HCPCS: 36415; 80053; 82150; 83690; 85025

== ENCOUNTER 2019-05-28 15:06 | Inpatient (IN) | payer MEDICAID, SELFPAY ==
[2019-05-28 11:28] VITALS: BMI 25.8
[2019-05-28 15:07] VITALS: BP 153/85; PULSE 120; RESP 17; TEMP 36.4; O2SAT 99; BMI 26.2
--- NOTE | 2019-05-28 15:38 | ED.DCSUM_ITS ---
- ER Visit Summary Date of Service: 05/28/19 Chief Complaint: Abnormal labs History of Present Illness: The patient is a 59 F who presents the emergency department to be referred here by her primary care. Patient states that the end of February she was admitted to the hospital with pancreatitis. Upon that episode she did quit drinking all. She states that recently she had some life stressors and began drinking alcohol again. Her last alcoholic drink was last Friday. Then last Friday she began to experience abdominal pain and vomiting with a small amount of diarrhea. This is persisted throughout this week. She was seen in the office today and had outpatient labs drawn. White count was normal 11.2. Hemoglobin 16.3. Lipase elevated to 680 amylase 363. Sodium 132. CO2 on BMP was 12. Total bilirubin 0.7. Minimal elevation of transaminases and alk phos. What room she had she states she is worried about length of stay in the hospital as her significant other recently and the burial is Friday. She notes pain in her bilateral sides epigastric discomfort which she states is from vomiting. She is had no vomiting today. Physical Examination: Afebrile vital signs showed a heart rate of 120 blood pressure 153/85. Gen: Well-nourished well-developed Head: Normocephalic atraumatic Eyes: Perrl EOMI ENT: TMs clear no rhinorrhea moist mucous membranes Neck: Supple no lymphadenopathy no JVD nontender CVS: Regular rate rhythm no murmurs normal S1-S2 Respiratory: No distress clear to auscultation bilaterally chest nontender Abdomen: Soft palpation in the epigastrium in the upper quadrants. No ecchymosis seen nondistended normal bowel sounds no masses Back: Nontender Extremity: Nontender no edema Skin: Normal color no rash Neuro: alert orientated ?3 CN II-XII intact normal strength sensation reflexes gait cerebellar Psych: Slightly depressed affect. No suicidal homicidal ideation. Test Results: [] Emergency Department Course and Treatment: Patient received IV fluids morphine and Zofran. She states that the last time she had pancreatitis she states the pain medication with her quite loopy. She wishes to go minimally on pain medication because of that. Impression: Line 1. Alcohol induced pancreatitis This note was generated with [employer] dictation software. It may contain incorrect words, spelling, and punctuation that were not noted in review of the chart prior to signing ED Disposition - Plan for ED Patient: Referrals: Edward Mc MD [Primary Care Provider] -
[2019-05-28] MEDS: Ondansetron 4 MG/2 ML Vial IV (15:57)
[2019-05-28] MEDS: Morphine 2 MG/ML Syringe IV (15:58)
[2019-05-28] MEDS: 0.9% Normal Saline 1,000 ML 999 ML IV ×2 (16:06→17:08)
[2019-05-28 16:38] LABS: Magnesium 1.8 mg/dL (1.6-2.6)
--- NOTE | 2019-05-28 16:40 | ED.RN ---
PT UNABLE TO URINATE IN ED
[2019-05-28 16:59] VITALS: BMI 21.7
[2019-05-28 16:59] LABS: Lactic Acid 1.5 mmol/L (0.4-2.0)
--- NOTE | 2019-05-28 16:59 | PCM.HP.STD ---
Problem List (1) Acute pancreatitis Status: Acute Qualifiers: (2) Alcoholism Status: Chronic (3) Chronic back pain Status: Chronic (4) Anxiety Status: Chronic (5) Bipolar disorder Status: Chronic (6) Osteoporosis Status: Chronic History of Present Illness Date of Admission: 05/28/19 Chief Complaint: nausea/vomiting/abd pain The patient is a 59 year old F with pmhx of alcoholism since 2008, prior pancreatitis, hx bipolar I disorder, anxiety disorder who presented to the ER from her PCP office with nausea, vomiting, and abdominal pain. This began Friday night. She has been sober since february, however went back to drinking about 1.5 weeks ago. She resumed drinking about 1/3 of a bottle of diluted vodka daily. Friday night she could not eat, had nausea, and later that evening developed severe abdominal pain. She has not been able to eat since, and has not drank alcohol since. Outpatient labs were done with elevated lipase at 680, sodium of 132. She describes 10/21 midepigastric abdominal pain non radiating. This has improved since receiving morphine to 07/23. Her boyfriend in an MVA on friday and she would like to be out of the hospital for the on friday. She takes abilify for bipolar I and states that she is compliant with these meds and that it works very well for her. [] Past Medical History Past Medical History (Chronic Problems): Chronic Problems (Last Reviewed 05/28/19 @ 11:28 by Leni Luong) Bipolar disorder (Chronic) Alcohol use disorder (Chronic) Alcoholism (Chronic) Chronic back pain (Chronic) Anxiety (Chronic) Osteoporosis (Chronic) Medical History: Medical History (Last Reviewed 05/28/19 @ 11:28 by Leni Luong) Arthritis M19.90 Diarrhea R19.7 History of back pain Z87.39 History of neck pain Z87.39 Incontinence R32 Osteoporosis M81.0 Scoliosis M41.9 Allergies No Known Allergies Allergy (Verified 05/28/19 15:06) Home Medications: Ambulatory Orders Medication Instructions Recorded Buspirone HCl 10 mg PO TID PRN PRN 07/05/17 Aripiprazole 10 mg PO DAILY 03/05/19 meloxicam 7.5 mg tablet 7.5 mg PO DAILY PRN #30 tab 04/14/19 Denosumab [Prolia] 60 mg SUBCUT [id number] 05/28/19 Multivitamins,Therapeutic 1 tab PO DAILYCM 05/28/19 [Multivitamin] Surgical History: Surgical History (Last Reviewed 05/28/19 @ 11:28 by Leni Luong) History of hip replacement Z96.649 History of tubal ligation Z98.51 Surgical History: total hip arthroplasty, - - Tubal ligation Psychiatric History: Bipolar [employer] History: No pertinent [employer] history Lives: Alone Smoking Status: Never smoker Tobacco Use: Non-smoker Alcohol: None Drugs: None - *Family History Maternal Family History: Family History (Last Reviewed 05/28/19 @ 11:28 by Leni Luong) Other Heart disease Osteoporosis History Items: - - osteoporosis Paternal Family History: Family History (Last Reviewed 05/28/19 @ 11:28 by Leni Luong) Other Heart disease Osteoporosis History Items: Pulmonary Disease - Pulmonary fibrosis Review of Systems Constitutional: Denies: Chills, Fever, Weight Change HEENT: Denies: Head Aches, Sinus Congestion, Sinus Drainage Cardiovascular: Denies: Chest Pain, Chest Tightness, Edema, Light Headedness, Palpitations Respiratory: Denies: Cough, Shortness of Breath, Shortness of breath at rest, Sputum production Gastrointestinal: Reports: Abdominal Pain, Nausea, Vomiting Genitourinary: Denies: Dysuria Musculoskeletal: Denies: Joint Pain, Joint Tenderness Skin: Denies: Rash, Wounds Neurological: Denies: Numbness, Tingling, Focal weakness Psychiatric: Denies: Anxiety, Depression, Homicidal Ideations, Suicidal Ideations Hematologic/ Lymphatic: Denies: Easy Bruising, Easy Bleeding VTE Information - Inpt Only VTE Present on Admission: No VTE Mechan Device Prophylaxis: None VTE Pharm Prophylaxis ordered?: Yes - Physical Exam Vitals/I&O's: Vital Signs Temp Pulse Resp BP Pulse Ox 97.6 F L 120 H 17 153/85 H 99 05/28/19 15:07 05/28/19 15:07 05/28/19 15:07 05/28/19 15:07 05/28/19 15:07 Oxygen Delivery Method Room Air Weight: 157 lb 10.088 oz Body Mass Index (BMI) 26.2 General: Alert, Oriented x3, Cooperative HEENT: Atraumatic, PERRLA, EOMI, Normocephalic Neck: Supple, No JVD, Negative Carotid Bruits Lungs: Clear to auscultation, Normal air movement Cardiovascular: Regular rate, No murmurs Abdomen: Bowel Sounds Present, Soft, Non Tender Extremities: No edema, Capillary Refill Less than 3 Seconds Skin: No rashes, No breakdown Musculoskeletal: No Tenderness to Palpation of Joints or Extremities Neurological: Cranial nerves II-XII grossly intact Psych/Mental Status: Normal Affect, Appropriate Laboratory Results 05/28/19 16:18: Lactic Acid Pending 05/28/19 16:18: Magnesium 1.8 Current Medications Sodium Chloride () 1,000 mls @ 999 mls/hr IV .Q1H1M [facility] Stop: 05/28/19 17:30 Last Admin: 05/28/19 16:06 Dose: 999 mls/hr Documented by: Sodium Chloride () 1,000 mls @ 250 mls/hr IV .Q4H [facility] Assessment/Plan All Active Problems (Last Reviewed 05/28/19 @ 11:28 by Leni Luong) Acute pancreatitis (Acute) Hyperkalemia (Acute) Acute kidney injury (Acute) Compression fracture of thoracic spine, non-traumatic (Acute) Strain of thoracic spine (Acute) Mid-back pain, acute (Acute) Low back pain (Acute) Acute right flank pain (Acute) 1. Acute pancreatitis 2/2 alcoholism - last drink friday. No signs of acute withdrawal. Pt will be placed on clear liquids. Recheck lipase in AM. IV fluids overnight. prn pain and antiemetics will be provided. LA/mag negative. 2. Alcoholism - she needs complete alcohol cessation, and she expresses the desire and intention to stay sober. CM consult for o/p resources 3. Bipolar I - continue ability 4. Anxiety- continue buspar. 5. Chronic back pain, prior compression fractures, osteoporosis - on prolia as o/p. recently mobic was discontinued. DVT ppx: lovenox DC Planning: pt would like to get to late boyfriend's on friday. This patient was seen by Сергей Collazo PA-C under the supervision of Doctor Richard.
[2019-05-28 17:03] VITALS: BMI 21.8
[2019-05-28 17:10] VITALS: BP 137/85; PULSE 97; RESP 16; TEMP 36.8; O2SAT 96
[2019-05-28 17:57] VITALS: PULSE 80
[2019-05-28] MEDS: 0.9% Normal Saline 1,000 ML 250 ML IV ×2 (18:05→21:42)
[2019-05-28 19:41] VITALS: BP 128/78; PULSE 97; RESP 16; TEMP 36.8; O2SAT 99
[2019-05-28 19:43] LABS: Bacteria 0 SEEN /hpf (None Seen); Mucous, Urine 0 SEEN /hpf (<or=2+); Red Blood Cells-Urine 0 SEEN /hpf (0-5)
[2019-05-28] MEDS: Morphine 4 MG/ML Syringe IV (19:48)
[2019-05-28 19:59] LABS: Color, Urine Yellow (Yellow); Glucose, Dipstick Normal (Normal); Leukocyte Esterase-Dipstick 25 /ul (Negative); Nitrite-Dipstick Negative (Negative); Occult Blood-Urine 150 /ul (Negative); Protein-Dipstick 100 mg/dl (Negative); Urine Clarity Clear (Clear); Urine Urobilinogen Normal (Normal)
[2019-05-28 20:00] LABS: Ketone-Dipstick 150 mg/dl (Negative); Urine Bilirubin Dipstick 1 mg/dL (Negative)
[2019-05-28 20:08] LABS: Hyaline Cast 10-25 SEEN /lpf (0-5); Squamous Epithelial Cells - UA 0-5 SEEN /hpf (5-10); White Blood Cells 0-5 SEEN /hpf (0-5)
[2019-05-29] MEDS: 0.9% Normal Saline 1,000 ML 250 ML IV ×2 (01:55→05:52)
[2019-05-29 01:57] VITALS: BP 107/72; PULSE 92; RESP 16; TEMP 36.8; O2SAT 97
[2019-05-29] MEDS: Morphine 4 MG/ML Syringe IV ×2 (02:01→06:03)
[2019-05-29 07:33] LABS: ALB/GLOB Ratio 0.8 RATIO (0.9-2.4); AST(SGOT) 37 U/L (15-37); Alanine Aminotransfer ALT/SGPT 37 U/L (13-56); Albumin, Serum 2.9 g/dL (3.2-5.0); Alkaline Phosphatase 83 U/L (45-117); Anion Gap 8 (5-15); BUN 9 mg/dL (7-18); BUN/Creat Ratio 14.8 RATIO (10-20); Calcium,Total 7.2 mg/dL (8.5-10.1); Chloride 111 mmol/L (98-107); Creatinine, Serum 0.61 mg/dL (0.55-1.02); EST Glomerular Filtration Rate 107 mL/min (>60); Est Glom Filt Rate - Afr Amer 129 mL/min (>60); Estimated Creatinine Clearance 95.37 ml/min; Globulin 3.5 g/dL (2.2-4.2); Glucose 71 mg/dL (74-106); Lipase 1131 U/L (73-393); Potassium 3.2 mmol/L (3.5-5.1); Protein, Total 6.4 g/dL (6.4-8.2); Sodium Level 140 mmol/L (136-145)
[2019-05-29 08:20] VITALS: BP 105/86; PULSE 103; RESP 16; TEMP 36.8; O2SAT 97
[2019-05-29] MEDS: ARIPiprazole 10 MG Tablet PO (09:42)
[2019-05-29] MEDS: Potassium Chloride 10mEq/100mL 10 MEQ/100 ML IV.SOLN. 100 MEQ IV BOLUS ×2 (10:14→11:06)
--- NOTE | 2019-05-29 10:45 | CM.UR ---
ARTUR POLLOCK assessment: Face to Face with patient for initial transition planning/care coordination assessment. RN PHILL introduced self and role at [facility], pt voices understanding and consents to assessment at this time. Pt is lying in bed in no distress. Pt is A/Ox4 at this time and answers all questions appropriately at this time. Care providers, pharmacy, and demographics verified at this time. PCP: [facility] Specialists: None that she sees on a regular basis. Preferred Pharmacy: [facility] Insurance: [facility] community plan Prescription Benefit: [facility] community plan--no copays so no problems affording medications. Living Will/HPOA: Pt states does not have LW/HPOA, but already has the information. LNOK: Roberta Byrd, friend. son is true LNOK but he is in [place] and going to [place] for 2 years. Living Arrangements: Pt states lives alone in 1 story apartment and states no concerns at home at this time. Pt states is independent with ADL's. Transportation: Pt states drives self and states no transportation concerns at this time. DME: Pt states has no current DME or need for any at this time. HHC: Had in past, can't remember from who. Denies need. SNF: Pt states has been to [facility]. Patient Goal: To be out in time to go to boyfriend's on Friday. He in a car accident recently. Pt states no further questions/concerns/needs at this time. CM to follow for any further discharge planning/needs. Advised pt to ask for CM if any further questions/concerns/needs arise, voices understanding. Plan: Home, no needs identified. Katie Buenrostro RN, CCM.
[2019-05-29] MEDS: 0.9% Normal Saline 1,000 ML 125 ML IV ×2 (11:06→18:50)
[2019-05-29] MEDS: Morphine 2 MG/ML Syringe IV ×2 (11:07→16:03)
--- NOTE | 2019-05-29 11:38 | PCM.PROGNOTE ---
<Сергей Collazo - Last Filed: 05/29/19 11:38> Subjective: Ongoing abdominal pain, unimproved, mostly located midepigrastric. She is hesitant to take morphine as in the past it was very strong and she had difficulty walking with it, but also at that time she was on ativan for alcohol withdrawal. She currently has no nausea, but states that she gets some nausea as the morphine wears off. No vomiting today. No bowel movement, some flatus. No LH/dizziness. - Physical Exam Vitals/I&O's: Vital Signs Temp Pulse Resp BP Pulse Ox 98.2 F 103 H 16 105/86 H 97 05/29/19 08:20 05/29/19 08:20 05/29/19 08:20 05/29/19 08:20 05/29/19 08:20 Oxygen Delivery Method Room Air Weight: 175 lb 6.4 oz Body Mass Index (BMI) 21.7 Intake and Output for Last 24 Hours 05/27/19 05/28/19 05/29/19 23:59 23:59 23:59 Intake Total 3394.89 / 3394.89 2532.50 / 2532.50 Output Total 150 / 150 Balance 3394.89 / 3394.89 2382.50 / 2382.50 General: Alert, Oriented x3, Cooperative HEENT: Atraumatic, PERRLA, EOMI, Normocephalic Neck: Supple, No JVD, Negative Carotid Bruits Lungs: Clear to auscultation, Normal air movement Cardiovascular: Regular rate, No murmurs Abdomen: Bowel Sounds Present, Soft, Tender - mostly midepigastric area Extremities: No edema, Capillary Refill Less than 3 Seconds Skin: No rashes, No breakdown Musculoskeletal: No Tenderness to Palpation of Joints or Extremities Neurological: Cranial nerves II-XII grossly intact Psych/Mental Status: Normal Affect, Appropriate, Alert and oriented to time, place, person, mood and affect Laboratory Results 05/28/19 16:18: Lactic Acid 1.5 05/28/19 16:18: Magnesium 1.8 05/28/19 19:25: Urine Color Yellow, Urine Clarity Clear, Urine pH 6.0, Ur Specific [place] 1.020, Urine Protein 100 H, Urine Glucose (UA) Normal, Urine Ketones 150 H, Urine Occult Blood 150 H, Urine Nitrite Negative, Urine Bilirubin 1 H, Urine Urobilinogen Normal, Ur Leukocyte Esterase 25 H, Urine RBC 0 SEEN, Urine WBC 0-5 SEEN, Ur Squamous Epith Cells 0-5 SEEN, Urine Bacteria 0 SEEN, Hyaline Casts 10-25 SEEN, Urine Mucus 0 SEEN 05/29/19 06:08: Sodium 140, Potassium 3.2 L, Chloride 111 H, Carbon Dioxide 21.0, Anion Gap 8, BUN 9, Creatinine 0.61, Estim Creat Clear Calc 95.37, Est GFR (MDRD) Af Amer 129, Est GFR (MDRD) Non-Af 107, BUN/Creatinine Ratio 14.8, Glucose 71 L, Calcium 7.2 L, Total Bilirubin 0.80, AST 37, ALT 37, Alkaline Phosphatase 83, Total Protein 6.4, Albumin 2.9 L, Globulin 3.5, Albumin/Globulin Ratio 0.8 L, Lipase 1131 H Current Medications Acetaminophen (Tylenol) 650 mg PO Q6H PRN PRN PRN Reason: Pain Score 1-3/Temp > 100.7 F Aripiprazole (Abilify) 10 mg PO DAILY [facility] Last Admin: 05/29/19 09:42 Dose: 10 mg Documented by: Buspirone HCl (Buspar) 10 mg PO TID PRN PRN Reason: ANXIETY Sodium Chloride () 1,000 mls @ 125 mls/hr IV .Q8H [facility] Last Admin: 05/29/19 11:06 Dose: 125 mls/hr Documented by: Potassium Chloride () 10 meq in 100 mls @ 100 mls/hr IV BOLUS Q1H [facility] Stop: 05/29/19 11:59 Last Admin: 05/29/19 11:06 Dose: 100 mls/hr Documented by: Morphine Sulfate () 1 - 2 mg IV Q3H PRN PRN PRN Reason: Pain Score 6-10/10 Last Admin: 05/29/19 11:07 Dose: 2 mg Documented by: Ondansetron HCl (Zofran) 4 mg IV Q8H PRN PRN PRN Reason: NAUSEA/VOMITING Sodium Chloride () 10 - 40 ml IV UD PRN PRN Reason: SALINE FLUSH Medical Necessity - Tobacco Use Smoking Status: Never smoker Tobacco Use: Non-smoker Assessment/Plan All Active Problems (Last Reviewed 05/28/19 @ 11:28 by Leni Luong) Acute pancreatitis (Acute) 1. Acute pancreatitis 2/2 alcoholism - last drink friday. No signs of acute withdrawal. -lipase improved -clear liquid diet -morphine adjusted -am CMP and lipase 2. Alcoholism - she needs complete alcohol cessation, and she expresses the desire and intention to stay sober. CM consult for o/p resources 3. Bipolar I - continue abilify. 4. Anxiety- continue buspar. 5. Chronic back pain, prior compression fractures, osteoporosis - on prolia as o/p. recently mobic was discontinued. No complaints of abdominal pain. LFTs normal. Tylenol if desired. DVT ppx: lovenox DC Planning: pt would like to get to late boyfriend's on friday. If feeling better may advance diet tomorrow. This patient was seen by Сергей Collazo PA-C under the supervision of Doctor Jensen <Rachana Styles E - Last Filed: 05/29/19 13:19> - Physical Exam Vitals/I&O's: Vital Signs Temp Pulse Resp BP Pulse Ox 98.2 F 103 H 16 105/86 H 97 05/29/19 08:20 05/29/19 08:20 05/29/19 08:20 05/29/19 08:20 05/29/19 08:20 Oxygen Delivery Method Room Air Weight: 175 lb 6.4 oz Body Mass Index (BMI) 21.7 Intake and Output for Last 24 Hours 05/27/19 05/28/19 05/29/19 23:59 23:59 23:59 Intake Total 3394.89 / 3394.89 2632.50 / 2632.50 Output Total 350 / 350 Balance 3394.89 / 3394.89 2282.50 / 2282.50 Laboratory Results 05/28/19 16:18: Lactic Acid 1.5 05/28/19 16:18: Magnesium 1.8 05/28/19 19:25: Urine Color Yellow, Urine Clarity Clear, Urine pH 6.0, Ur Specific [place] 1.020, Urine Protein 100 H, Urine Glucose (UA) Normal, Urine Ketones 150 H, Urine Occult Blood 150 H, Urine Nitrite Negative, Urine Bilirubin 1 H, Urine Urobilinogen Normal, Ur Leukocyte Esterase 25 H, Urine RBC 0 SEEN, Urine WBC 0-5 SEEN, Ur Squamous Epith Cells 0-5 SEEN, Urine Bacteria 0 SEEN, Hyaline Casts 10-25 SEEN, Urine Mucus 0 SEEN 05/29/19 06:08: Sodium 140, Potassium 3.2 L, Chloride 111 H, Carbon Dioxide 21.0, Anion Gap 8, BUN 9, Creatinine 0.61, Estim Creat Clear Calc 95.37, Est GFR (MDRD) Af Amer 129, Est GFR (MDRD) Non-Af 107, BUN/Creatinine Ratio 14.8, Glucose 71 L, Calcium 7.2 L, Total Bilirubin 0.80, AST 37, ALT 37, Alkaline Phosphatase 83, Total Protein 6.4, Albumin 2.9 L, Globulin 3.5, Albumin/Globulin Ratio 0.8 L, Lipase 1131 H Current Medications Acetaminophen (Tylenol) 650 mg PO Q6H PRN PRN PRN Reason: Pain Score 1-3/Temp > 100.7 F Aripiprazole (Abilify) 10 mg PO DAILY [facility] Last Admin: 05/29/19 09:42 Dose: 10 mg Documented by: Buspirone HCl (Buspar) 10 mg PO TID PRN PRN Reason: ANXIETY Sodium Chloride () 1,000 mls @ 125 mls/hr IV .Q8H [facility] Last Admin: 05/29/19 11:06 Dose: 125 mls/hr Documented by: Morphine Sulfate () 1 - 2 mg IV Q3H PRN PRN PRN Reason: Pain Score 6-10/10 Last Admin: 05/29/19 11:07 Dose: 2 mg Documented by: Ondansetron HCl (Zofran) 4 mg IV Q8H PRN PRN PRN Reason: NAUSEA/VOMITING Sodium Chloride () 10 - 40 ml IV UD PRN PRN Reason: SALINE FLUSH Assessment/Plan Hospitalist note: I am seeing this patient in conjunction with Сергей Collazo. I independently seen and examined the patient. Progress note above and laboratory data reviewed and I concur with the above treatment plan. Today, patient still having abdominal pain, epigastric, and mostly improvement. She mentioned that she does not want to take large amounts of morphine. Denied nausea vomiting. Her vital signs are stable. - Physical Exam General: Alert, Oriented x3, Cooperative, No apparent distress. HEENT: Atraumatic, PERRLA, EOMI. Neck: Supple, No JVD, Negative Carotid Bruits, Trachea Midline, Thyroid Normal. Lungs: Clear to auscultation, Normal air movement, No rhonchi, No wheeze, No rales. Cardiovascular: Regular rate, Regular Rhythm, Normal S1, Normal S2, PMI Normal. Abdomen: Bowel Sounds Present, Soft, mild epigastric tenderness, no guarding or rigidity, non-Distended, No Hepato-splenomegaly. Extremities: No clubbing, No cyanosis, No edema Skin: No rashes, No breakdown Neurological: Cranial nerves are intact, neuro grossly intact Vital Signs are stable. Assessment and plan: #1 acute on chronic pancreatitis: Secondary to alcoholism. She is on clear liquids, IV fluids and IV pain medications. Lipase is trending down. LFT was normal. Plan to decrease IV morphine down to 1 to 2 mg IV every 3 hours as needed, continue clear liquids, repeat CBC, CMP and lipase tomorrow morning. #2 mild hypokalemia, she was given a total of 20 mEq of KCl this morning, plan to repeat BMP tomorrow morning. #3 other chronic medical problems: Stable, continue current medications as above. This note was generated with [employer] dictation software. It may contain incorrect words, spelling, and punctuation that were not noted in checking the note before signing. Code Visit Inpatient E&M: 68872 Subs Hosp L2
[2019-05-29 15:55] VITALS: BP 121/83; PULSE 100; RESP 16; TEMP 37.3; O2SAT 95
[2019-05-29 21:55] VITALS: BP 128/87; PULSE 100; RESP 18; TEMP 36.8; O2SAT 98
[2019-05-29] MEDS: Acetaminophen 325 MG Tablet 650 MG PO (22:29)
[2019-05-30 03:09] VITALS: BP 138/91; PULSE 97; RESP 18; TEMP 36.5; O2SAT 98
[2019-05-30] MEDS: 0.9% Normal Saline 1,000 ML 125 ML IV ×2 (03:10→11:21)
[2019-05-30 06:31] LABS: Absolute Lymphocyte Count 1.08 X10^3/uL (0.83-4.51); Absolute Neutrophil Count 4.4 X10^3/uL (2.0-7.7); Basophil# 0.02 X10^3/uL; Basophil% 0.3 % (0-1); Eosinophil# 0.17 X10^3/uL; Eosinophils% 2.6 % (0-5); Hematocrit 33.6 % (37-47); Hemoglobin 11.9 g/dL (12.0-15.0); Lymphocyte # 1.08 X10^3/ul (4.0); Lymphocyte % 16.7 % (19-41); Mean Corp Hgb Conc 35.4 g/dL (32-36); Mean Corpuscular Hgb 31.3 pg (27.0-32.0); Mean Corpuscular Volume 88.4 fL (81-99); Mean Platelet Vol. 10.5 fl (6.2-12.0); Monocyte# 0.78 X10^3/uL; Monocyte% 12.1 % (0-10); NRBC Flagged by Analyzer 0 % (0-5); Neutrophil # 4.37 X10^3/uL (2.7-7.7); Neutrophil % 67.7 % (47-70); Platelet Count 136 K/mm3 (150-450); RBC Distribution Width CV 14.7 % (11.6-14.6); RBC Distribution Width SD 45.4 fl (35.1-43.9); White Blood Count 6.5 K/mm3 (4.4-11.0)
[2019-05-30 07:07] LABS: ALB/GLOB Ratio 0.7 RATIO (0.9-2.4); AST(SGOT) 28 U/L (15-37); Alanine Aminotransfer ALT/SGPT 33 U/L (13-56); Albumin, Serum 2.6 g/dL (3.2-5.0); Alkaline Phosphatase 83 U/L (45-117); Anion Gap 14 (5-15); BUN 2 mg/dL (7-18); BUN/Creat Ratio 4.4 RATIO (10-20); Chloride 106 mmol/L (98-107); Creatinine, Serum 0.46 mg/dL (0.55-1.02); EST Glomerular Filtration Rate 148 mL/min (>60); Est Glom Filt Rate - Afr Amer 179 mL/min (>60); Estimated Creatinine Clearance 126.47 ml/min; Globulin 3.6 g/dL (2.2-4.2); Glucose 76 mg/dL (74-106); Lipase 559 U/L (73-393); Potassium 2.7 mmol/L (3.5-5.1); Protein, Total 6.2 g/dL (6.4-8.2); Sodium Level 140 mmol/L (136-145)
[2019-05-30] MEDS: Ondansetron 4 MG/2 ML Vial IV (07:21)
[2019-05-30] MEDS: 0.9% Saline Lock 10 ML Syringe IV (07:21)
--- NOTE | 2019-05-30 07:25 | NURSING ---
took Critical lab value from lab for potassium of 2.7, texted, Dr. Styles, awaiting response.
[2019-05-30] MEDS: Potassium Chloride 10mEq/100mL 10 MEQ/100 ML IV.SOLN. 100 MEQ IV BOLUS ×3 (08:32→10:29)
[2019-05-30 08:35] VITALS: BP 133/88; PULSE 99; RESP 14; TEMP 37.1; O2SAT 99
[2019-05-30] MEDS: ARIPiprazole 10 MG Tablet PO (08:41)
[2019-05-30] MEDS: Magnesium Oxide 400 MG Tablet 800 MG PO (08:41)
[2019-05-30] MEDS: Acetaminophen 325 MG Tablet 650 MG PO (08:41)
[2019-05-30 09:17] LABS: Phosphorus 0.9 mg/dL (2.5-4.9)
--- NOTE | 2019-05-30 11:09 | DCINST_ITS ---
- Discharge Diagnoses Current Active Problems: Current Active and Chronic Problems (Last Reviewed 05/28/19 @ 11:28 by Leni Luong) Alcoholism (Chronic) Chronic back pain (Chronic) Anxiety (Chronic) You will use the following diet at home:: Other - no alcohol at all. Gradually transition back to a normal diet. Avoid spicy, acidic, and or greasy foods. Your food should be the consistency of: Regular Your liquids should be the consistency of: Regular/Thin Discharge Activity: Return to Normal Activity Allergies/Adverse Reactions: Allergies No Known Allergies Allergy (Verified 05/28/19 15:06) Medications to take at Discharge Buspirone HCl 10 mg PO TID PRN PRN 07/05/17 Aripiprazole 10 mg PO DAILY 03/05/19 meloxicam 7.5 mg tablet 7.5 mg PO DAILY PRN #30 tab 04/14/19 Denosumab [Prolia] 60 mg SUBCUT [id number] 05/28/19 Multivitamins,Therapeutic [Multivitamin] 1 tab PO DAILYCM 05/28/19 Acetaminophen [Tylenol Tablet] 650 mg PO Q6H PRN PRN tablet 05/30/19 Ondansetron [Zofran Odt] 4 mg PO Q6H PRN PRN #16 tab 05/30/19 Oxycodone [Oxyir] 5 mg PO Q4H PRN PRN 3 Days #18 tablet 05/30/19 The following prescriptions were given: Oxycodone [Oxyir] 5 mg PO Q4H PRN PRN 3 Days #18 tablet PRN Reason: Pain Score 6-10/10 Transmission Status: Received by [facility] TIFFANIE Ondansetron [Zofran Odt] 4 mg PO Q6H PRN PRN #16 tab PRN Reason: Nausea Transmission Status: Pending to [facility] Primary Care Physician: Edward Mc MD [Primary Care Provider] - Please follow up with your Primary Care Physician in: 1-2 weeks Test Results: Test results from this visit will be discussed in further detail at your follow- up appointment, if applicable. Proposed Discharge Date: 05/30/19
--- NOTE | 2019-05-30 12:29 | DS.PCM_ITS ---
<Сергей Collazo - Last Filed: 05/30/19 12:29> Discharge Date and Diagnosis Date of Admission: 05/28/19 Date of Discharge: 05/30/19 - Primary Discharge Diagnosis Acute recurrent alcoholic pancreatitis Alcoholism Hypokalemia, hypophosphatemia Mild thrombocytopenia Bipolar I Anxiety Chronic back pain, compression fractures, osteoporosis - Secondary Discharge Diagnosis Chronic Problems (Last Reviewed 05/28/19 @ 11:28 by Leni Luong) Bipolar disorder (Chronic) Alcoholism (Chronic) Chronic back pain (Chronic) Anxiety (Chronic) Osteoporosis (Chronic) Compression fracture of thoracic spine, non-traumatic (Chronic) Hospital Course and Treatment Operations: None Procedures: None Summary of Care Provided: Hospital course: The patient is a 59 year old F with past medical history as above notable for alcoholism and prior episodes of pancreatitis, who presented to the emergency room from outside hospital for nausea vomiting abdominal pain. She had had a CT of the abdomen that demonstrated pancreatitis, had elevated lipase and hyponatremia. The patient had been sober since February but had restarted drinking about a week and half prior to presentation. He was drinking approximately one third of a bottle of diluted vodka daily. For several days prior to presentation she could not eat or drink anything due to severe nausea and vomiting along with midepigastric abdominal pain. She was admitted to the medical surgical unit on clear liquid diet, given IV fluids, and supportive care. She had no evidence of alcohol withdrawal as she had stopped drinking several days prior to presentation. We were able to gradually advance her diet and the patient had good improvement and control of her pain and nausea with PRN medications. Electrolytes were replaced. Lipase trended down stepwise. Diet was advanced to full liquids. The patient strongly desired to be discharged on Friday as the following day she wanted to attend the of her boyfriend who was killed recently in an auto accident. She was instructed on slowly advancing her diet at home. Patient was discharged in stable condition with Percocet for pain and Zofran for nausea. She will need to follow-up with her PCP in 1 to 2 weeks. She needs complete cessation from alcohol. This patient was seen by Сергей Collazo PA-C under the supervision of Doctor Pierre mcgee. [] - Physical Exam Vitals/I&O's: Vital Signs Temp Pulse Resp BP Pulse Ox 98.7 F 99 14 133/88 H 99 05/30/19 08:35 05/30/19 08:35 05/30/19 08:35 05/30/19 08:35 05/30/19 08:35 Oxygen Delivery Method Room Air Weight: 175 lb 6.4 oz Body Mass Index (BMI) 21.7 Intake and Output for Last 24 Hours 05/28/19 05/29/19 05/30/19 23:59 23:59 23:59 Intake Total 3394.89 / 3394.89 3719.17 / 3959.17 2880.00 / 2880.00 Output Total 950 / 1550 2400 / 2400 Balance 3394.89 / 3394.89 2769.17 / 2409.17 480.00 / 480.00 General: Alert, Oriented x3, Cooperative HEENT: Atraumatic, PERRLA, EOMI, Normocephalic Neck: Supple, No JVD, Negative Carotid Bruits Lungs: Clear to auscultation, Normal air movement Cardiovascular: Regular rate, No murmurs Abdomen: Bowel Sounds Present, Soft, Non Tender Extremities: No edema, Capillary Refill Less than 3 Seconds Skin: No rashes, No breakdown Musculoskeletal: No Tenderness to Palpation of Joints or Extremities Neurological: Cranial nerves II-XII grossly intact Psych/Mental Status: Normal Affect, Appropriate Laboratory Results 05/30/19 05:17: WBC 6.5, RBC 3.80 L, Hgb 11.9 L, Hct 33.6 L, MCV 88.4, MCH 31.3, MCHC 35.4, RDW Std Deviation 45.4 H, RDW Coeff of Laxmi 14.7 H, Plt Count 136 L, MPV 10.5, Immature Gran % (Auto) 0.600, Neut % (Auto) 67.7, Lymph % (Auto) 16.7 L, Falls % (Auto) 12.1 H, Eos % (Auto) 2.6, Baso % (Auto) 0.3, Absolute Neuts (auto) 4.4, Absolute Lymphs (auto) 1.08, Nucleated RBC % 0 05/30/19 05:17: Sodium 140, Potassium 2.7 L*, Chloride 106, Carbon Dioxide 20.0 L, Anion Gap 14, BUN 2 L, Creatinine 0.46 L, Estim Creat Clear Calc 126.47, Est GFR (MDRD) Af Amer 179, Est GFR (MDRD) Non-Af 148, BUN/Creatinine Ratio 4.4 L, Glucose 76, Calcium 7.0 L, Total Bilirubin 0.80, AST 28, ALT 33, Alkaline Phosphatase 83, Total Protein 6.2 L, Albumin 2.6 L, Globulin 3.6, Albumin/Globulin Ratio 0.7 L, Lipase 559 H 05/30/19 05:17: Phosphorus 0.9 L* Current Medications Acetaminophen (Tylenol) 650 mg PO Q6H PRN PRN PRN Reason: Pain Score 1-3/Temp > 100.7 F Last Admin: 05/30/19 08:41 Dose: 650 mg Documented by: Aripiprazole (Abilify) 10 mg PO DAILY [facility] Last Admin: 05/30/19 08:41 Dose: 10 mg Documented by: Buspirone HCl (Buspar) 10 mg PO TID PRN PRN Reason: ANXIETY Sodium Chloride () 1,000 mls @ 125 mls/hr IV .Q8H [facility] Last Admin: 05/30/19 11:21 Dose: 125 mls/hr Documented by: Potassium Phosphate 40 mm/ (Sodium Chloride) 513.3333 mls @ 62.5 mls/hr IV X1 [facility] Stop: 05/30/19 19:42 Last Admin: 05/30/19 11:26 Dose: 62.5 mls/hr Documented by: Morphine Sulfate () 1 - 2 mg IV Q3H PRN PRN PRN Reason: Pain Score 6-10/10 Last Admin: 05/29/19 16:03 Dose: 2 mg Documented by: Ondansetron HCl (Zofran) 4 mg IV Q8H PRN PRN PRN Reason: NAUSEA/VOMITING Last Admin: 05/30/19 07:21 Dose: 4 mg Documented by: Sodium Chloride () 10 - 40 ml IV UD PRN PRN Reason: SALINE FLUSH Last Admin: 05/30/19 07:21 Dose: 10 ml Documented by: Discharge Diet: - - no alcohol Discharge Activity: Return to Normal Activity Home Medications: Medications to take at Discharge Buspirone HCl 10 mg PO TID PRN PRN 07/05/17 Aripiprazole 10 mg PO DAILY 03/05/19 meloxicam 7.5 mg tablet 7.5 mg PO DAILY PRN #30 tab 04/14/19 Denosumab [Prolia] 60 mg SUBCUT [id number] 05/28/19 Multivitamins,Therapeutic [Multivitamin] 1 tab PO DAILYCM 05/28/19 Acetaminophen [Tylenol Tablet] 650 mg PO Q6H PRN PRN tab 05/30/19 Ondansetron [Zofran Odt] 4 mg PO Q6H PRN PRN #16 tab 05/30/19 Oxycodone [Oxyir] 5 mg PO Q4H PRN PRN 3 Days #18 tab 05/30/19 Following Prescrptions Were Given to Patient: Oxycodone [Oxyir] 5 mg PO Q4H PRN PRN 3 Days #18 tab PRN Reason: Pain Score 6-1010 Transmission Status: Received by LAVERNE WALTERS RD Ondansetron [Zofran Odt] 4 mg PO Q6H PRN PRN #16 tab PRN Reason: Nausea Transmission Status: Received by LAVERNE WALTERS RD Primary Care Physician: Edward Mc MD [Primary Care Provider] - Please follow up with your Primary Care Physician in: 1-2 weeks Disposition: Home Minutes spent on discharge:: 35 Patient Condition:: Stable Medical Necessity - Tobacco Use Smoking Status: Never smoker Tobacco Use: Non-smoker Meaningful Use Info Meaningful Use Diagnoses (Choose all that apply): None applicable <JensenRachana E - Last Filed: 05/30/19 13:24> Discharge Date and Diagnosis - Secondary Discharge Diagnosis Chronic Problems (Last Reviewed 05/28/19 @ 11:28 by Leni Luong) Bipolar disorder (Chronic) Alcoholism (Chronic) Chronic back pain (Chronic) Anxiety (Chronic) Osteoporosis (Chronic) Compression fracture of thoracic spine, non-traumatic (Chronic) Hospital Course and Treatment Summary of Care Provided: Hospitalist note: Discharge summary above reviewed and I agree with the above discharge treatment plan. Patient was admitted for abdominal pain with nausea and vomiting and she was found to have acute on chronic alcoholic pancreatitis. This patient has a history of pancreatitis which is attributed to alcoholism and she started drinking approximately one third of bottle of vodka every day. She had blood work that was done as outpatient by her PCP and her lipase was 2680 on the day of admission. Her LFT was unremarkable. She did have mild hypokalemia on admission. Patient was kept on clear liquids, IV fluids and IV morphine PRN for pain. Her potassium and phosphorus were very low and that was replaced and corrected. Her lipase improved and came down to 559 on discharge. Her symptoms improved. She was started on full liquid diet and she did well. Patient discharged home in a stable condition, discharged on OxyIR PRN for pain, Zofran PRN for nausea and vomiting, continued on her previous medications, counseled to stop drinking alcohol, recommended follow-up with PCP in 1 week. - Physical Exam General: Alert, Oriented x3, Cooperative, No apparent distress. HEENT: Atraumatic, PERRLA, EOMI. Neck: Supple, No JVD, Negative Carotid Bruits, Trachea Midline, Thyroid Normal. Lungs: Clear to auscultation, Normal air movement, No rhonchi, No wheeze, No rales. Cardiovascular: Regular rate, Regular Rhythm, Normal S1, Normal S2, PMI Normal. Abdomen: Bowel Sounds Present, Soft, minimal epigastric tenderness, Non- Distended, No Hepato-splenomegaly. Extremities: No clubbing, No cyanosis, No edema Skin: No rashes, No breakdown Neurological: Neuro grossly intact Vital Signs are stable. This note was generated with [employer] dictation software. It may contain incorrect words, spelling, and punctuation that were not noted in checking the note before signing. - Physical Exam Vitals/I&O's: Vital Signs Temp Pulse Resp BP Pulse Ox 98.7 F 99 14 133/88 H 99 05/30/19 08:35 05/30/19 08:35 05/30/19 08:35 05/30/19 08:35 05/30/19 08:35 Oxygen Delivery Method Room Air Weight: 175 lb 6.4 oz Body Mass Index (BMI) 21.7 Intake and Output for Last 24 Hours 05/28/19 05/29/19 05/30/19 23:59 23:59 23:59 Intake Total 3394.89 / 3394.89 3719.17 / 3959.17 2880.00 / 2880.00 Output Total 950 / 1550 2400 / 2400 Balance 3394.89 / 3394.89 2769.17 / 2409.17 480.00 / 480.00 Laboratory Results 05/30/19 05:17: WBC 6.5, RBC 3.80 L, Hgb 11.9 L, Hct 33.6 L, MCV 88.4, MCH 31.3, MCHC 35.4, RDW Std Deviation 45.4 H, RDW Coeff of Laxmi 14.7 H, Plt Count 136 L, MPV 10.5, Immature Gran % (Auto) 0.600, Neut % (Auto) 67.7, Lymph % (Auto) 16.7 L, Falls % (Auto) 12.1 H, Eos % (Auto) 2.6, Baso % (Auto) 0.3, Absolute Neuts (auto) 4.4, Absolute Lymphs (auto) 1.08, Nucleated RBC % 0 05/30/19 05:17: Sodium 140, Potassium 2.7 L*, Chloride 106, Carbon Dioxide 20.0 L, Anion Gap 14, BUN 2 L, Creatinine 0.46 L, Estim Creat Clear Calc 126.47, Est GFR (MDRD) Af Amer 179, Est GFR (MDRD) Non-Af 148, BUN/Creatinine Ratio 4.4 L, Glucose 76, Calcium 7.0 L, Total Bilirubin 0.80, AST 28, ALT 33, Alkaline Phosphatase 83, Total Protein 6.2 L, Albumin 2.6 L, Globulin 3.6, Albumin/Globulin Ratio 0.7 L, Lipase 559 H 05/30/19 05:17: Phosphorus 0.9 L* Current Medications Acetaminophen (Tylenol) 650 mg PO Q6H PRN PRN PRN Reason: Pain Score 1-3/Temp > 100.7 F Last Admin: 05/30/19 08:41 Dose: 650 mg Documented by: Aripiprazole (Abilify) 10 mg PO DAILY [facility] Last Admin: 05/30/19 08:41 Dose: 10 mg Documented by: Buspirone HCl (Buspar) 10 mg PO TID PRN PRN Reason: ANXIETY Sodium Chloride () 1,000 mls @ 125 mls/hr IV .Q8H [facility] Last Admin: 05/30/19 11:21 Dose: 125 mls/hr Documented by: Potassium Phosphate 40 mm/ (Sodium Chloride) 513.3333 mls @ 62.5 mls/hr IV X1 ONE Stop: 05/30/19 19:42 Last Admin: 05/30/19 11:26 Dose: 62.5 mls/hr Documented by: Morphine Sulfate () 1 - 2 mg IV Q3H PRN PRN PRN Reason: Pain Score 6-10/10 Last Admin: 05/29/19 16:03 Dose: 2 mg Documented by: Ondansetron HCl (Zofran) 4 mg IV Q8H PRN PRN PRN Reason: NAUSEA/VOMITING Last Admin: 05/30/19 07:21 Dose: 4 mg Documented by: Sodium Chloride () 10 - 40 ml IV UD PRN PRN Reason: SALINE FLUSH Last Admin: 05/30/19 07:21 Dose: 10 ml Documented by: Disposition: Home Minutes spent on discharge:: 28 Patient Condition:: Stable Meaningful Use Info Meaningful Use Diagnoses (Choose all that apply): None applicable Code Visit Inpatient E&M: 81059 Disch Hosp
[2019-05-30 13:52] LABS: Phosphorus 1.8 mg/dL (2.5-4.9); Potassium 3.2 mmol/L (3.5-5.1)
[2019-05-30 14:45] VITALS: BP 135/98; PULSE 101; RESP 16; TEMP 36.8; O2SAT 97
== END 2019-05-30 16:16 | disposition home or self-care (01) | DRG 282 ==
LOC: ED 15:37 → MS3 17:44
PROVIDERS: Physician Assistant; Admitting Provider Internal Medicine; Emergency Provider Emergency Medicine; Family Provider Internal Medicine; PCP Internal Medicine; Visit Provider Hospitalist
DX: K85.20 Alcohol induced acute pancreatitis without necrosis or infection (principal); E87.6 Hypokalemia; E83.39 Other disorders of phosphorus metabolism; D69.6 Thrombocytopenia, unspecified; F31.9 Bipolar disorder, unspecified; F41.9 Anxiety disorder, unspecified; F10.20 Alcohol dependence, uncomplicated; G89.29 Other chronic pain; E87.1 Hypo-osmolality and hyponatremia; K86.0 Alcohol-induced chronic pancreatitis; M80.88XS Other osteoporosis with current pathological fracture, vertebra(e), sequela
CPT/HCPCS: 36415; 80053; 81001; 82150; 83605; 83690; 83735; 84100; 84132; 85025; 97802; 99284; J7030; J7040; A4216; J2405

== ENCOUNTER → 2019-06-15 09:00 | Outpatient (CLI) | payer MEDICAID, SELFPAY ==
[2019-06-14 14:19] VITALS: BMI 21.7
[2019-06-15 12:41] LABS: ALB/GLOB Ratio 0.9 RATIO (0.9-2.4); AST(SGOT) 35 U/L (15-37); Alanine Aminotransfer ALT/SGPT 67 U/L (13-56); Albumin, Serum 3.7 g/dL (3.2-5.0); Alkaline Phosphatase 84 U/L (45-117); Anion Gap 7 (5-15); BUN 7 mg/dL (7-18); BUN/Creat Ratio 8.7 RATIO (10-20); Calcium,Total 8.9 mg/dL (8.5-10.1); Chloride 108 mmol/L (98-107); EST Glomerular Filtration Rate 77 mL/min (>60); Est Glom Filt Rate - Afr Amer 93 mL/min (>60); Glucose 160 mg/dL (74-106); Potassium 4.4 mmol/L (3.5-5.1); Protein, Total 7.7 g/dL (6.4-8.2); Sodium Level 140 mmol/L (136-145); T4 Free Direct 0.98 ng/dL (0.76-1.46); Thyroid Stim Hormone (TSH) 0.44 uIU/mL (0.358-3.74)
== END ==
PROVIDERS: Family Provider Internal Medicine; PCP Internal Medicine; Visit Provider Internal Medicine
DX: K85.90 Acute pancreatitis without necrosis or infection, unspecified (principal); F10.20 Alcohol dependence, uncomplicated; Z13.29 Encounter for screening for other suspected endocrine disorder
CPT/HCPCS: 36415; 80053; 84439; 84443

== ENCOUNTER → 2019-06-18 09:42 | Outpatient (CLI) | payer MEDICAID, SELFPAY ==
[2019-06-14 14:19] VITALS: BMI 21.7
--- NOTE | 2019-06-18 09:45 | US_ITS ---
STUDY: THYROID ULTRASOUND REASON FOR EXAM: Female, 59 years old. Mass. TECHNIQUE: Ultrasound evaluation of the thyroid was performed with real-time and static oh-scale imaging. COMPARISON: None. FINDINGS: RIGHT LOBE: The right lobe of the thyroid gland measures 5.7 x 2.1 x 2.4 cm. There is a homogeneous echotexture. Tiny subcentimeter nodules are seen measuring 4 mm and 7 mm. LEFT LOBE: The left lobe of the thyroid gland measures 5.5 x 2.4 x 2.2 cm. There is a homogeneous echotexture. There are no demonstrated solid, cystic or complex lesions. ISTHMUS: The isthmus measures 3 mm . The regional lymph nodes are normal. US/Thyroid IMPRESSION: Moderately large thyroid gland with no dominant nodules. Electronically Signed: Shabbir Bo MD at 22:28 EST , Service support ,
== END ==
PROVIDERS: Family Provider Internal Medicine; PCP Internal Medicine; Referring Provider Internal Medicine; Visit Provider Internal Medicine
DX: R22.1 Localized swelling, mass and lump, neck (principal)
CPT/HCPCS: 76536

== ENCOUNTER → 2020-06-02 11:26 | Outpatient (CLI) | payer MEDICAID, SELFPAY ==
--- NOTE | 2020-06-02 11:31 | RAD_ITS ---
STUDY: X-RAY CHEST REASON FOR EXAM: Female, 60 years old. dyspnea TECHNIQUE: PA and lateral COMPARISON: 02/02/2019. FINDINGS: The lungs are clear and hyperexpanded. There is no demonstrated pleural abnormality. Normal size heart. Normal mediastinum and stacy. Normal visualized pulmonary arteries. Normal visualized aortic arch and descending thoracic aorta. There is chronic compression deformities involving the mid thoracic spine. Normal visualized ribs, clavicles, and shoulders. There is no demonstrated abnormality of the visualized soft tissue structures of the upper abdomen. RAD/Chest PA and Lateral IMPRESSION: No focal lung consolidative changes. No interval change. Electronically Signed: Armin Leslie, at 3:12 EST Tel , Service support ,
== END ==
PROVIDERS: PCP Internal Medicine; Referring Provider Nurse Practitioner Family; Visit Provider Nurse Practitioner Family
DX: R06.00 Dyspnea, unspecified (principal)
CPT/HCPCS: 71046

== ENCOUNTER 2020-06-10 12:59 | Inpatient (IN) | payer MEDICAID, SELFPAY ==
[2020-06-10] VITALS (8 sets, daily range): BP systolic 117–130; BP diastolic 75–92; PULSE 95–136; RESP 16–20; TEMP 35.7–37.2; O2SAT 94–98; BMI 24.0; BMI 24.1
--- NOTE | 2020-06-10 13:31 | EKG12_ITS ---
Test Reason : DYSRHYTHMIA Blood Pressure : / mmHG Vent. Rate : 097 BPM Atrial Rate : 097 BPM P-R Int : 118 ms QRS Dur : 080 ms QT Int : 326 ms P-R-T Axes : 002 055 265 degrees QTc Int : 414 ms Normal sinus rhythm ST & T wave abnormality, consider inferior ischemia ST & T wave abnormality, consider anterolateral ischemia Abnormal ECG Confirmed by AIDAN THOMAS, JUSTIN ([id number]), acquisition editor EDITH QUINTERO ([id number]) on 06/13/2020 9:14:13 AM Referred By: CARO Confirmed By:JUSTIN BERMUDEZ MD
--- NOTE | 2020-06-10 13:31 | RAD_ITS ---
STUDY: X-RAY CHEST REASON FOR EXAM: Female, 60 years old. increased sob in the past week TECHNIQUE: Single view of the chest was obtained COMPARISON: Ne. 06/02/2020 chest radiograph FINDINGS: No consolidative process, pleural effusion or pneumothorax. Cardiac size is stable. Minimal platelike atelectasis in the lung bases. Osseous structures demonstrate no acute abnormalities. Mild curvature of the thoracic spine IMPRESSION: No acute cardiopulmonary pathology. Electronically Signed: Ky Wood, at 14:21 EST Tel , Service support , RAD/Chest 1 View (Portable)
--- NOTE | 2020-06-10 14:10 | ED.VISSUMM ---
- ER Visit Summary Date of Service: 06/10/20 Chief Complaint: Shortness of breath History of Present Illness: The patient is a 60 F who presents with shortness of breath that has been getting worse over the past 2 weeks. Patient states that anytime she exerts herself she becomes short of breath. Patient states this includes walking short distances. Patient states it gets better with rest. Patient does admit to some rhinorrhea but denies any sore throat or cough. Patient denies any fevers or chills. Patient denies any chest pain. Patient states her father had pulmonary fibrosis and she is concerned with that. Patient states she has had chest x-rays done this week which were negative. Physical Examination: Vital signs are stable except for tachycardia of 136. Patient is afebrile. Patient is in no acute distress. Oral mucosa is pink and moist. Neck is supple. Trachea is midline. There is no JVD. Heart was regular and tachycardic. Lungs were diminished bilaterally. There is good respiratory effort. Abdomen is soft. Bowel sounds are normal. There is no tenderness. Cranial nerves II through XII are intact. There are no focal motor or sensory deficits noted. Extremities are intact. There is no calf tenderness or edema. Test Results: EKG was obtained. On my interpretation, there is a normal sinus rhythm with a rate of 97. There are nonspecific ST-T wave changes diffusely. This is unchanged compared to previous EKG dated 03/05/2019. CBC was within normal limits. Comprehensive metabolic profile showed a potassium of 3.3. CO2 was 18 and anion gap was 20. AST was slightly elevated at 70 and alk phos was slightly elevated at 130. Total bilirubin was slightly elevated at 1.4. Troponin was normal. D-dimer was elevated at 1.78. Portable 1 view chest x-ray was obtained. On my interpretation, lung ashton are clear. There is normal cardiac silhouette. Bony thorax is normal. There is no acute process noted. Radiologist also interpreted the x-ray and agrees. Because of the elevated D-dimer, CTA of the chest was ordered. There is no evidence of pulmonary embolism or aortic dissection. There is some mild edema adjacent to the pancreas. This was interpreted by the radiologist. A lactate and lipase were ordered and are pending. Emergency Department Course and Treatment: Patient is resting comfortably on reevaluation. Case was discussed with the hospitalist. He recommended giving the patient IV fluids and repeating the BMP. If the anion gap was still elevated at that time he will admit the patient for observation. Patient understands and is agreeable with the plan. All questions were answered. Disposition: Care of the patient was turned over to the oncoming physician pending repeat labs. Impression: 1. Anion gap metabolic acidosis This note was generated with [employer] dictation software. It may contain incorrect words, spelling, and punctuation that were not noted in review of the chart prior to signing ED Disposition - Plan for ED Patient: Referrals: Edward Mc MD [Primary Care Provider] -
[2020-06-10 14:12] LABS: Absolute Lymphocyte Count 0.92 X10^3/uL (0.83-4.51); Absolute Neutrophil Count 3.7 X10^3/uL (2.0-7.7); Basophil# 0.03 X10^3/uL; Basophil% 0.6 % (0-1); Eosinophil# 0.07 X10^3/uL; Eosinophils% 1.3 % (0-5); Hematocrit 43.1 % (37-47); Hemoglobin 14.4 g/dL (12.0-15.0); Lymphocyte # 0.92 X10^3/ul (4.0); Mean Corp Hgb Conc 33.4 g/dL (32-36); Mean Corpuscular Hgb 32.4 pg (27.0-32.0); Mean Corpuscular Volume 96.9 fL (81-99); Mean Platelet Vol. 10.2 fl (6.2-12.0); Monocyte# 0.62 X10^3/uL; Monocyte% 11.5 % (0-10); NRBC Flagged by Analyzer 0 % (0-5); Neutrophil # 3.72 X10^3/uL (2.7-7.7); Neutrophil % 68.9 % (47-70); Platelet Count 160 K/mm3 (150-450); RBC Distribution Width CV 17.3 % (11.6-14.6); RBC Distribution Width SD 60.9 fl (35.1-43.9); Red Blood Count 4.45 M/mm3 (4.2-5.4); White Blood Count 5.4 K/mm3 (4.4-11.0)
[2020-06-10 14:27] LABS: D-Dimer Quantitative (DVT/PE) 1.78 FEU/ug/m (0.27-0.49)
[2020-06-10 14:29] LABS: ALB/GLOB Ratio 0.9 RATIO (0.9-2.4); AST(SGOT) 70 U/L (15-37); Alanine Aminotransfer ALT/SGPT 50 U/L (13-56); Albumin, Serum 4.1 g/dL (3.2-5.0); Alkaline Phosphatase 130 U/L (45-117); Anion Gap 20 (5-15); BUN 8 mg/dL (7-18); Calcium,Total 9.4 mg/dL (8.5-10.1); Chloride 98 mmol/L (98-107); EST Glomerular Filtration Rate 77 mL/min (>60); Est Glom Filt Rate - Afr Amer 94 mL/min (>60); Estimated Creatinine Clearance 71.81 ml/min; Globulin 4.6 g/dL (2.2-4.2); Glucose 90 mg/dL (74-106); Potassium 3.3 mmol/L (3.5-5.1); Protein, Total 8.7 g/dL (6.4-8.2); Sodium Level 136 mmol/L (136-145)
--- NOTE | 2020-06-10 14:50 | CT_ITS ---
STUDY: CTA CHEST REASON FOR EXAM: Female, 60 years old. INCREASE SOB X 1 WEEK. ELEVATED D-DIMER RADIATION DOSAGE (If Supplied By Facility): CTDIvol = ( 7.29 ) mGy, DLP = ( 351.55 ) mGycm TECHNIQUE: The examination was performed with the intravenous administration of IV 100mL Isovue-370. Post-processing of the angiographic images was performed, with multiplanar reformation and 3D reconstruction. Individualized dose optimization techniques were used for this CT. COMPARISON: None. FINDINGS: The pulmonary artery and its branches demonstrate no evidence for filling defects to suggest acute pulmonary embolism. No pericardial effusion. Normal caliber of the thoracic aorta. Origin of the great vessels are patent. No evidence for mediastinal lymphadenopathy. A few scattered groundglass densities in the right upper and lower lobe seen possibly pulmonary congestion or developing pulmonary infiltrates There is stranding adjacent to the pancreas noted which can be seen in the setting of mild acute interstitial pancreatitis. Hepatic steatosis. Small punctate calcification in the tail of the pancreas. Osseous structures demonstrate no acute abnormalities. Scarring in the left kidney. Compression fracture of the T5, T7 and T3 vertebral bodies noted. Approximately 80-90% loss of vertebral body height at T7 level. Minimal retropulsion. No paraspinal soft tissue mass. IMPRESSION: No evidence for acute pulmonary embolism. No evidence for aortic dissection. Hepatic steatosis. Mild edema adjacent to the pancreas which can be seen in the setting of acute interstitial pancreatitis. T7 vertebral body compression fracture which was not seen on the previous exam trauma 2017. A few scattered groundglass densities in the right upper and lower lobe seen possibly pulmonary congestion or developing pulmonary infiltrates. No consolidative process Electronically Signed: Ky Wood, at 15:28 EST Tel , Service support , CT/CTA Chest W/WO Contrast
[2020-06-10] MEDS: 0.9% Normal Saline 1,000 ML 1000 ML IV (15:57)
[2020-06-10 16:25] LABS: Lactic Acid 0.9 mmol/L (0.4-1.9)
[2020-06-10 17:27] LABS: Anion Gap 17 (5-15); BUN 6 mg/dL (7-18); BUN/Creat Ratio 8.9 RATIO (10-20); Calcium,Total 8.2 mg/dL (8.5-10.1); Chloride 102 mmol/L (98-107); Creatinine, Serum 0.67 mg/dL (0.55-1.02); EST Glomerular Filtration Rate 95 mL/min (>60); Est Glom Filt Rate - Afr Amer 114 mL/min (>60); Estimated Creatinine Clearance 85.75 ml/min; Glucose 79 mg/dL (74-106); Lipase 2240 U/L (73-393); Potassium 3.4 mmol/L (3.5-5.1); Sodium Level 137 mmol/L (136-145)
[2020-06-10] MEDS: LORazepam 2 MG/ML Syringe 1 MG IV (17:51)
--- NOTE | 2020-06-10 17:52 | NURSING ---
MED SURG IVA ALCOHOLIC PANCREATITIS
[2020-06-10 17:56] LABS: Magnesium 1.7 mg/dL (1.6-2.6)
--- NOTE | 2020-06-10 18:23 | ED.RN ---
pt requested not to contact Meme Dietz, I will do it per pt.
[2020-06-10] MEDS: 0.9% Normal Saline 1,000 ML 100 ML IV (18:40)
--- NOTE | 2020-06-10 18:44 | US_ITS ---
STUDY: ABDOMINAL ULTRASOUND - RIGHT UPPER QUADRANT REASON FOR VISIT: Female, 60 years old PANCREATITIS TECHNIQUE: Ultrasound evaluation of the right upper quadrant was performed with real-time and static oh-scale imaging. TECHNICAL QUALITY: Adequate. COMPARISON: None. FINDINGS: Liver: The liver is enlarged and measures 19.8 cm. There is increased echogenicity consistent with fatty infiltration. The bile ducts are within normal limits. There is hepatic color flow. The direction of portal flow is hepatopetal. There is no demonstrated mass lesion. Gallbladder: Normal distended gallbladder. The gallbladder wall measures 1.9 mm. There is a negative sonographic Rosenberg''s sign. There is no pericholecystic fluid. There are multiple echogenic structures within the gallbladder, consistent with multiple gallstones. Common Bile Duct (C.B.D.): The common bile duct measures 3.5 mm. Pancreas: Normal size of the head, body and tail of the pancreas. There is normal echogenicity of the pancreas. There is no demonstrated pancreatic mass or cyst. Right Kidney: Normal size of the right kidney. The right kidney measures 10.8 cm x 5.6 cm x 5.7 cm. Normal renal cortex. The right cortex measures 1.5 cm. There is no demonstrated renal mass or cyst. There is no right hydronephrosis. US/Abdomen Limited IMPRESSION: Mild hepatomegaly and diffuse fatty infiltration of the liver. Cholelithiasis. Electronically Signed: Pedro Timmons, at 9:51 EST , Service support ,
--- NOTE | 2020-06-10 18:49 | HP.PCM_ITS ---
History of Present Illness Date of Admission: 06/10/20 Chief Complaint: SOB The patient is a 60 year old F with PMH as below who presents with shortness of breath. She says it is been going on for 3 to 4 weeks, and she is extremely concerned that she has pulmonary fibrosis because her father had. She is main taining her oxygen sats on room air. She states that her father was exposed to as best as, and she denies any type of work history that would lead to pulmonary fibrosis. Her Covid test was negative and she denies any contacts. Her CTA demonstrates some scattered groundglass densities which she would need to follow-up with on discharge. She was also found to have an anion gap metabolic acidosis, lactic acid was normal. She did admit to drinking heavily about half a bottle of liquor every day so it is possible that she has an alcoholic ketoacidosis and she did have small acetones in her urine. She would like to undergo detox from the alcohol she has been drinking for the last 2 months. Also her lipase was elevated to 2200, and she states that she does not have any abdominal pain or acute back pain. She denies a history of a cholecystectomy. Past Medical History Past Medical History (Chronic Problems): Chronic Problems (Last Reviewed 06/25/19 @ 10:00 by Salima Hurt) Bipolar disorder (Chronic) Alcoholism (Chronic) Chronic back pain (Chronic) Anxiety (Chronic) Osteoporosis (Chronic) Compression fracture of thoracic spine, non-traumatic (Chronic) Medical History: Medical History (Last Reviewed 06/25/19 @ 10:00 by Salima Hurt) Arthritis M19.90 Diarrhea R19.7 History of back pain Z87.39 History of neck pain Z87.39 Incontinence R32 Osteoporosis M81.0 Scoliosis M41.9 Allergies No Known Allergies Allergy (Verified 06/25/19 09:58) Home Medications: Ambulatory Orders Medication Instructions Recorded Aripiprazole 10 mg PO DAILY 03/05/19 Denosumab [Prolia] 60 mg SUBCUT [id number] 05/28/19 Multivitamins,Therapeutic 1 tab PO DAILYCM 05/28/19 [Multivitamin] buspirone 10 mg tablet 10 mg PO DAILY tab 06/25/19 albuterol sulfate 90 mcg/actuation 1 - 2 puff INHALATION Q6H PRN #8.5 05/31/20 aerosol inhaler g Cholecalciferol (Vitamin D3) 2,000 unit PO DAILY 06/10/20 [Vitamin D3] Surgical History: Surgical History (Last Reviewed 06/25/19 @ 10:00 by Salima Hurt) History of hip replacement Z96.649 History of tubal ligation Z98.51 Surgical History: total hip arthroplasty, - - Tubal ligation Psychiatric History: Bipolar LEAD [employer]CHIT[employer] History: No pertinent LEAD [employer]CHIT[employer] history Smoking Status: Never smoker Alcohol: Heavy Drugs: None - *Family History Maternal Family History: Family History (Last Reviewed 06/25/19 @ 10:00 by Salima Hurt) Other Heart disease Osteoporosis History Items: Stroke, - - osteoporosis Paternal Family History: Family History (Last Reviewed 06/25/19 @ 10:00 by Salima Hurt) Other Heart disease Osteoporosis History Items: Pulmonary Disease - Pulmonary fibrosis Review of Systems Constitutional: Denies: Chills, Fever, Weight Change HEENT: Denies: Head Aches, Sinus Congestion, Sinus Drainage Cardiovascular: Denies: Chest Pain, Palpitations Respiratory: Reports: Shortness of Breath. Denies: Cough, Shortness of breath at rest, Sputum production Gastrointestinal: Denies: Abdominal Pain, Nausea, Vomiting Genitourinary: Denies: Dysuria Musculoskeletal: Denies: Joint Pain, Joint Tenderness Skin: Denies: Rash, Wounds Neurological: Denies: Numbness, Tingling, Focal weakness Psychiatric: Denies: Anxiety, Depression Hematologic/ Lymphatic: Denies: Easy Bruising, Easy Bleeding VTE Information - Inpt Only VTE Present on Admission: No - Physical Exam Vitals/I&O's: Vital Signs Temp Pulse Resp BP Pulse Ox 99.0 F 97 20 H 117/87 H 94 06/10/20 18:19 06/10/20 18:19 06/10/20 18:19 06/10/20 18:19 06/10/20 18:19 Oxygen Delivery Method Room Air Weight: 153 lb 10.595 oz Body Mass Index (BMI) 24.0 Intake and Output for Last 24 Hours 06/08/20 06/09/20 06/10/20 23:59 23:59 23:59 Intake Total 1000 / 1000 Balance 1000 / 1000 General: Alert, Oriented x3, Cooperative, No apparent distress HEENT: Atraumatic, PERRLA, EOMI, Normocephalic Oral: Moist Mucosa Neck: Supple, No JVD Lungs: Clear to auscultation, Normal air movement, No rhonchi, No wheeze, No rales Cardiovascular: Regular rate, Regular Rhythm, Normal S1, Normal S2, No murmurs Abdomen: Soft, Non Tender, Non-Distended, No Hepato-splenomegaly Extremities: No edema, Capillary Refill Less than 3 Seconds Skin: No rashes, No breakdown Neurological: Neuro grossly intact, Sensory exam intact to light touch and pain Psych/Mental Status: Anxious Microbiology Past 72 Hours 06/10/20 14:00 Mucosa - Nose SARS-CoV-2 Antigen (Rapid) - Final Laboratory Results 06/10/20 14:00: WBC 5.4, RBC 4.45, Hgb 14.4, Hct 43.1, MCV 96.9, MCH 32.4 H, MCHC 33.4, RDW Std Deviation 60.9 H, RDW Coeff of Laxmi 17.3 H, Plt Count 160, MPV 10.2, Immature Gran % (Auto) 0.700, Neut % (Auto) 68.9, Lymph % (Auto) 17.0 L, [place] % (Auto) 11.5 H, Eos % (Auto) 1.3, Baso % (Auto) 0.6, Absolute Neuts (auto) 3.7, Absolute Lymphs (auto) 0.92, Nucleated RBC % 0 06/10/20 14:00: D-Dimer Quant (PE/DVT) 1.78 H* 06/10/20 14:00: Sodium 136, Potassium 3.3 L, Chloride 98, Carbon Dioxide 18.0 L, Anion Gap 20 H, BUN 8, Creatinine 0.80, Estim Creat Clear Calc 71.81, Est GFR (MDRD) Af Amer 94, Est GFR (MDRD) Non-Af 77, BUN/Creatinine Ratio 10.0, Glucose 90, Calcium 9.4, Total Bilirubin 1.40 H, AST 70 H, ALT 50, Alkaline Phosphatase 130 H, Troponin I < 0.015, Total Protein 8.7 H, Albumin 4.1, Globulin 4.6 H, Albumin/Globulin Ratio 0.9 06/10/20 14:00: Acetone Level SMALL H 06/10/20 15:43: Lactic Acid 0.9 06/10/20 17:00: Sodium 137, Potassium 3.4 L, Chloride 102, Carbon Dioxide 18.0 L , Anion Gap 17 H, BUN 6 L, Creatinine 0.67, Estim Creat Clear Calc 85.75, Est GFR (MDRD) Af Amer 114, Est GFR (MDRD) Non-Af 95, BUN/Creatinine Ratio 8.9 L, Glucose 79, Calcium 8.2 L, Lipase 2240 H 06/10/20 17:00: Magnesium 1.7 Current Medications Acetaminophen (Acetaminophen 325 Mg Tablet) 650 mg PO Q6H PRN PRN PRN Reason: Pain Score 1-10/Temp > 100.7 F Dicyclomine HCl (Dicyclomine 10 Mg Capsule) 20 mg PO Q6H PRN PRN PRN Reason: abdominal discomfort Folic Acid (Folic Acid 1 Mg Tablet) 1 mg PO DAILY@0800 KEVIN Gabapentin (Gabapentin 300 Mg Capsule) 300 mg PO Q8H PRN PRN PRN Reason: moderate to severe anxiety Hydroxyzine Pamoate (Hydroxyzine Yolande 25 Mg Capsule) 50 mg PO Q4H PRN PRN PRN Reason: mild anxiety Potassium Chloride () 10 meq in 100 mls @ 100 mls/hr IV BOLUS Q1H KEVIN Stop: 06/10/20 19:44 Sodium Chloride () 1,000 mls @ 100 mls/hr IV .Q10H KEVIN Loperamide HCl (Loperamide 2 Mg Capsule) 2 mg PO Q4H PRN PRN PRN Reason: LOOSE STOOLS Melatonin (Melatonin 3 Mg Tablet) 3 mg PO QHS PRN PRN PRN Reason: INSOMNIA Ondansetron HCl (Ondansetron 4 Mg/2 Ml Vial) 4 mg IV Q8H PRN PRN PRN Reason: NAUSEA/VOMITING Phenobarbital (Phenobarbital 32.4 Mg Tablet) 0 mg PO UD KEVIN; Taper Stop: 06/15/20 02:44 Thiamine HCl (Thiamine Hydrochloride 100 Mg Tablet) 100 mg PO DAILYCM KEVIN Trazodone HCl (Trazodone 100 Mg Tablet) 100 mg PO QHS PRN PRN Reason: INSOMNIA Assessment/Plan All Active Problems (Last Reviewed 06/25/19 @ 10:00 by Salima Hurt) Acute pancreatitis (Acute) 1. Acute pancreatitis with metabolic acidosis/alcohol withdrawal -Likely alcohol induced, though we will check a right upper quadrant ultrasound to rule out gallbladder disease. Total bilirubin is elevated at 1.4 -A year ago her triglycerides were 95 -She would like to go through detox would like to get off of alcohol. We will continue with the alcohol withdrawal protocol and have her follow-up with 180 -We will check a CMP as well as a mag and Phos in the morning 2. Shortness of breath -She did have an elevated D-dimer so CTA was performed which was unremarkable for pulmonary embolism however she did have very slight groundglass opacities on the right -Covid test is negative and she has been symptomatic for 2 to 3 weeks -She has significant anxiety about the possibility of pulmonary fibrosis and given the groundglass opacities in her CTA, it may be beneficial to have her follow-up with pulmonology as an outpatient to obtain PFTs. Both her father and her aunt had pulmonary fibrosis, she does state that her father was exposed to his best test through work which is likely what caused his pulmonary fibrosis 3. Bipolar disorder -This will make her addiction difficult to manage -Continue with Eleni DVT: Lovenox Inpatient E&M: [id number] Init Hosp L3
[2020-06-10] MEDS: Phenobarbital 32.4 MG Tablet 64.8 MG PO ×2 (19:11→22:52)
[2020-06-10] MEDS: Potassium Chloride 10mEq/100mL 10 MEQ/100 ML IV.SOLN. 100 MEQ IV BOLUS ×2 (19:45→20:48)
[2020-06-10] MEDS: Dicyclomine 10 MG Capsule 20 MG PO (21:53)
[2020-06-11] MEDS: Phenobarbital 32.4 MG Tablet 64.8 MG PO ×6 (02:57→22:19)
[2020-06-11] MEDS: 0.9% Normal Saline 1,000 ML 100 ML IV ×2 (02:57→12:26)
[2020-06-11 03:02] VITALS: BP 124/80; PULSE 99; RESP 16; TEMP 36.9; O2SAT 95
[2020-06-11 06:13] LABS: Absolute Lymphocyte Count 0.94 X10^3/uL (0.83-4.51); Absolute Neutrophil Count 2.7 X10^3/uL (2.0-7.7); Basophil# 0.02 X10^3/uL; Basophil% 0.4 % (0-1); Eosinophil# 0.21 X10^3/uL; Eosinophils% 4.6 % (0-5); Hematocrit 34.6 % (37-47); Hemoglobin 11.8 g/dL (12.0-15.0); Lymphocyte # 0.94 X10^3/ul (4.0); Lymphocyte % 20.8 % (19-41); Mean Corp Hgb Conc 34.1 g/dL (32-36); Mean Corpuscular Hgb 33.1 pg (27.0-32.0); Mean Corpuscular Volume 96.9 fL (81-99); Mean Platelet Vol. 10.3 fl (6.2-12.0); Monocyte# 0.61 X10^3/uL; Monocyte% 13.5 % (0-10); NRBC Flagged by Analyzer 0 % (0-5); Neutrophil # 2.71 X10^3/uL (2.7-7.7); Neutrophil % 59.8 % (47-70); Platelet Count 130 K/mm3 (150-450); RBC Distribution Width CV 17.3 % (11.6-14.6); RBC Distribution Width SD 60.1 fl (35.1-43.9); Red Blood Count 3.57 M/mm3 (4.2-5.4); White Blood Count 4.5 K/mm3 (4.4-11.0)
[2020-06-11 06:34] VITALS: BP 124/75; PULSE 97; RESP 16; TEMP 36.7; O2SAT 98
[2020-06-11] MEDS: Dicyclomine 10 MG Capsule 20 MG PO (06:35)
[2020-06-11 06:46] LABS: ALB/GLOB Ratio 0.8 RATIO (0.9-2.4); AST(SGOT) 41 U/L (15-37); Alanine Aminotransfer ALT/SGPT 32 U/L (13-56); Alkaline Phosphatase 99 U/L (45-117); Anion Gap 15 (5-15); BUN 4 mg/dL (7-18); BUN/Creat Ratio 6.8 RATIO (10-20); Calcium,Total 8.4 mg/dL (8.5-10.1); Chloride 106 mmol/L (98-107); Creatinine, Serum 0.59 mg/dL (0.55-1.02); EST Glomerular Filtration Rate 110 mL/min (>60); Est Glom Filt Rate - Afr Amer 133 mL/min (>60); Estimated Creatinine Clearance 97.37 ml/min; Globulin 3.7 g/dL (2.2-4.2); Glucose 73 mg/dL (74-106); Magnesium 1.6 mg/dL (1.6-2.6); Phosphorus 1.6 mg/dL (2.5-4.9); Potassium 3.2 mmol/L (3.5-5.1); Protein, Total 6.7 g/dL (6.4-8.2); Sodium Level 137 mmol/L (136-145)
[2020-06-11] MEDS: Enoxaparin 40 MG/0.4 ML Syringe SC (09:36)
[2020-06-11] MEDS: Thiamine Hydrochloride 100 MG Tablet PO (09:36)
[2020-06-11] MEDS: Folic Acid 1 MG Tablet PO (09:36)
[2020-06-11 12:32] VITALS: BP 133/91; PULSE 93; RESP 18; TEMP 36.9; O2SAT 96
[2020-06-11 13:10] VITALS: BP 124/78; PULSE 97; RESP 18; TEMP 37; O2SAT 93
--- NOTE | 2020-06-11 15:08 | PN_ITS ---
Reason for Visit: Follow-up on dyspnea/acute pancreatitis Subjective: Patient was seen and examined. She is not on oxygen. Denied any worsening shortness of breath. She has been passing gas. Abdominal pain is fairly improved. Objective: Physical exam: General: Alert, Oriented x3, Cooperative, No apparent distress HEENT: Atraumatic, PERRLA, EOMI, Normocephalic Oral: Moist Mucosa Neck: Supple, No JVD Lungs: Clear to auscultation, Normal air movement, No rhonchi, No wheeze, No rales Cardiovascular: Regular rate, Regular Rhythm, Normal S1, Normal S2, No murmurs Abdomen: Soft, Non Tender, Non-Distended, No Hepato-splenomegaly Extremities: No edema, Capillary Refill Less than 3 Seconds Skin: No rashes, No breakdown Neurological: Neuro grossly intact, Sensory exam intact to light touch and pain Psych/Mental Status: Anxious Vitals/I&O's: Vital Signs Temp Pulse Resp BP Pulse Ox 98.5 F 93 18 133/91 H 96 06/11/20 12:32 06/11/20 12:32 06/11/20 12:32 06/11/20 12:32 06/11/20 12:32 Oxygen Delivery Method Nasal Cannula Weight: 69.7 kg Body Mass Index (BMI) 24.0 Intake and Output for Last 24 Hours 06/09/20 06/10/20 06/11/20 23:59 23:59 23:59 Intake Total 1351.2 / 1351.2 1905.00 / 1905.00 Balance 1351.2 / 1351.2 1905.00 / 1905.00 Microbiology Past 72 Hours 06/10/20 14:00 Mucosa - Nose SARS-CoV-2 Antigen (Rapid) - Final Laboratory Results 06/10/20 14:00: Acetone Level SMALL H 06/10/20 15:43: Lactic Acid 0.9 06/10/20 17:00: Sodium 137, Potassium 3.4 L, Chloride 102, Carbon Dioxide 18.0 L , Anion Gap 17 H, BUN 6 L, Creatinine 0.67, Estim Creat Clear Calc 85.75, Est GFR (MDRD) Af Amer 114, Est GFR (MDRD) Non-Af 95, BUN/Creatinine Ratio 8.9 L, Glucose 79, Calcium 8.2 L, Lipase 2240 H 06/10/20 17:00: Magnesium 1.7 06/11/20 05:50: WBC 4.5, RBC 3.57 L, Hgb 11.8 L, Hct 34.6 L, MCV 96.9, MCH 33.1 H, MCHC 34.1, RDW Std Deviation 60.1 H, RDW Coeff of Laxmi 17.3 H, Plt Count 130 L , MPV 10.3, Immature Gran % (Auto) 0.900, Neut % (Auto) 59.8, Lymph % (Auto) 20.8, [place] % (Auto) 13.5 H, Eos % (Auto) 4.6, Baso % (Auto) 0.4, Absolute Neuts (auto) 2.7, Absolute Lymphs (auto) 0.94, Nucleated RBC % 0 06/11/20 05:50: Sodium 137, Potassium 3.2 L, Chloride 106, Carbon Dioxide 16.0 L , Anion Gap 15, BUN 4 L, Creatinine 0.59, Estim Creat Clear Calc 97.37, Est GFR (MDRD) Af Amer 133, Est GFR (MDRD) Non-Af 110, BUN/Creatinine Ratio 6.8 L, Glucose 73 L, Calcium 8.4 L, Phosphorus 1.6 L, Magnesium 1.6, Total Bilirubin 1.20 H, AST 41 H, ALT 32, Alkaline Phosphatase 99, Total Protein 6.7, Albumin 3.0 L, Globulin 3.7, Albumin/Globulin Ratio 0.8 L Current Medications Acetaminophen (Acetaminophen 325 Mg Tablet) 650 mg PO Q6H PRN PRN PRN Reason: Pain Score 1-10/Temp > 100.7 F Dicyclomine HCl (Dicyclomine 10 Mg Capsule) 20 mg PO Q6H PRN PRN PRN Reason: abdominal discomfort Last Admin: 06/11/20 06:35 Dose: 20 mg Documented by: Enoxaparin Sodium (Enoxaparin 40 Mg/0.4 Ml Syringe) 40 mg SC DAILY [facility] Last Admin: 06/11/20 09:36 Dose: 40 mg Documented by: Folic Acid (Folic Acid 1 Mg Tablet) 1 mg PO DAILY@0800 [facility] Last Admin: 06/11/20 09:36 Dose: 1 mg Documented by: Gabapentin (Gabapentin 300 Mg Capsule) 300 mg PO Q8H PRN PRN PRN Reason: moderate to severe anxiety Hydroxyzine Pamoate (Hydroxyzine Yolande 25 Mg Capsule) 50 mg PO Q4H PRN PRN PRN Reason: mild anxiety Sodium Chloride () 1,000 mls @ 100 mls/hr IV .Q10H KEVIN Last Admin: 06/11/20 12:26 Dose: 100 mls/hr Documented by: Sodium Chloride () 250 mls @ 15 mls/hr IV .[id number] PRN PRN Reason: Saline Flush Loperamide HCl (Loperamide 2 Mg Capsule) 2 mg PO Q4H PRN PRN PRN Reason: LOOSE STOOLS Melatonin (Melatonin 3 Mg Tablet) 3 mg PO QHS PRN PRN PRN Reason: INSOMNIA Ondansetron HCl (Ondansetron 4 Mg/2 Ml Vial) 4 mg IV Q8H PRN PRN PRN Reason: NAUSEA/VOMITING Phenobarbital (Phenobarbital 32.4 Mg Tablet) 97.2 mg PO Q4H KEVIN; Taper Stop: 06/15/20 02:59 Last Admin: 06/11/20 14:30 Dose: 97.2 mg Documented by: Sodium Chloride (0.9% Saline Lock 10 Ml Syringe) 10 - 40 ml IV UD PRN PRN Reason: SALINE FLUSH Thiamine HCl (Thiamine Hydrochloride 100 Mg Tablet) 100 mg PO DAILYCM [facility] Last Admin: 06/11/20 09:36 Dose: 100 mg Documented by: Trazodone HCl (Trazodone 100 Mg Tablet) 100 mg PO QHS PRN PRN Reason: INSOMNIA STROKE Vital Signs/Narrative: Vital Signs Temp Pulse Resp BP Pulse Ox 06/11/20 12:32 98.5 F 93 18 133/91 H 96 Medical Necessity - Tobacco Use Smoking Status: Never smoker Assessment/Plan All Active Problems (Last Reviewed 06/25/19 @ 10:00 by Salima Hurt) Acute pancreatitis (Acute) 1. Acute pancreatitis, secondary to alcohol, clinically improving, slowly Transition to clear liquid diet, advance diet as tolerated Continue with pain control 2. Acute alcohol withdrawal, improving, last CIWA score is 1 Continue alcohol withdrawal protocol 3. Hypokalemia/Hypomagnesemia/Hypophosphatemia, replaced, recheck in am 4. Elevated D-dimer, negative CT of the chest for PE, showed few groundglass densities in the right upper and lower lobes Recommend follow-up with pulmonology 5. Bipolar disorder, continue home Abilify and BuSpar 6. T7 vertebral compression fracture, this is old, seen on MRI in November 2018, history of osteoporosis Needs to follow-up with osteoporosis treatment 7. DVT prophylaxis Lovenox subcu Inpatient E&M: [id number] Subs Hosp L2
[2020-06-11] MEDS: Potassium Chloride 10mEq/100mL 10 MEQ/100 ML IV.SOLN. 100 MEQ IV BOLUS ×4 (17:02→21:06)
[2020-06-11] MEDS: Lactated Ringers 1,000 ML 100 ML IV (17:02)
[2020-06-11 18:28] VITALS: BP 133/84; PULSE 98; RESP 20; TEMP 36.7; O2SAT 92
[2020-06-11 22:17] VITALS: BP 108/70; PULSE 95; RESP 18; TEMP 36.7; O2SAT 92
[2020-06-12] MEDS: Phenobarbital 32.4 MG Tablet 64.8 MG PO ×2 (02:31→06:06)
[2020-06-12] MEDS: Lactated Ringers 1,000 ML 100 ML IV (02:31)
[2020-06-12 02:44] VITALS: BP 120/82; PULSE 86; RESP 16; TEMP 36.7; O2SAT 97
[2020-06-12 05:55] LABS: Absolute Lymphocyte Count 0.96 X10^3/uL (0.83-4.51); Absolute Neutrophil Count 2.2 X10^3/uL (2.0-7.7); Basophil# 0.03 X10^3/uL; Basophil% 0.8 % (0-1); Eosinophil# 0.23 X10^3/uL; Eosinophils% 5.8 % (0-5); Hematocrit 34.1 % (37-47); Hemoglobin 11.7 g/dL (12.0-15.0); Lymphocyte # 0.96 X10^3/ul (4.0); Lymphocyte % 24.1 % (19-41); Mean Corp Hgb Conc 34.3 g/dL (32-36); Mean Corpuscular Hgb 32.8 pg (27.0-32.0); Mean Corpuscular Volume 95.5 fL (81-99); Mean Platelet Vol. 9.8 fl (6.2-12.0); Monocyte# 0.56 X10^3/uL; Monocyte% 14.1 % (0-10); NRBC Flagged by Analyzer 0 % (0-5); Neutrophil # 2.17 X10^3/uL (2.7-7.7); Neutrophil % 54.4 % (47-70); Platelet Count 122 K/mm3 (150-450); RBC Distribution Width CV 17.4 % (11.6-14.6); Red Blood Count 3.57 M/mm3 (4.2-5.4)
[2020-06-12 06:05] VITALS: BP 134/91; PULSE 98; RESP 18; TEMP 36.3; O2SAT 96
[2020-06-12 06:39] LABS: ALB/GLOB Ratio 0.8 RATIO (0.9-2.4); AST(SGOT) 31 U/L (15-37); Alanine Aminotransfer ALT/SGPT 27 U/L (13-56); Albumin, Serum 2.7 g/dL (3.2-5.0); Alkaline Phosphatase 102 U/L (45-117); Anion Gap 11 (5-15); BUN 2 mg/dL (7-18); BUN/Creat Ratio 4.5 RATIO (10-20); Calcium,Total 7.8 mg/dL (8.5-10.1); Chloride 104 mmol/L (98-107); Creatinine, Serum 0.45 mg/dL (0.55-1.02); EST Glomerular Filtration Rate 152 mL/min (>60); Est Glom Filt Rate - Afr Amer 184 mL/min (>60); Estimated Creatinine Clearance 127.67 ml/min; Globulin 3.5 g/dL (2.2-4.2); Glucose 78 mg/dL (74-106); Phosphorus 4.1 mg/dL (2.5-4.9); Potassium 3.4 mmol/L (3.5-5.1); Protein, Total 6.2 g/dL (6.4-8.2); Sodium Level 135 mmol/L (136-145)
[2020-06-12 07:44] LABS: Magnesium 1.9 mg/dL (1.6-2.6)
[2020-06-12 08:35] VITALS: BP 129/90; PULSE 94; RESP 16; TEMP 36.9; O2SAT 93
[2020-06-12] MEDS: 0.9% Saline Lock 10 ML Syringe IV (08:37)
[2020-06-12] MEDS: Thiamine Hydrochloride 100 MG Tablet PO (08:37)
[2020-06-12] MEDS: Enoxaparin 40 MG/0.4 ML Syringe SC (08:37)
[2020-06-12] MEDS: Folic Acid 1 MG Tablet PO (08:37)
--- NOTE | 2020-06-12 09:29 | CASEMGMT ---
Social Work Note SW received referral for ETOH use. SW in to speak with pt. SW introduced self and role at [facility]. Pt is alert and orientated. Pt confirms that she drinks ETOH daily. Pt states she drinks 47 proof vodka daily. Pt denied additional substances. Pt states she takes abilify. SW educated pt on [facility]AMP program. Pt not agreeable to talking to [employer]. SW offered to provide pt with ETOH resources and treatment options and to make pt appointment somewhere and pt denied. Pt states she has done AA meetings before, counseling, and she just needs to quit drinking. Pt denied additional needs or concerns. Shadia Fields RANGE TECHNICIAN, SAS ADMINISTRATOR
[2020-06-12 12:36] LABS: Lipase 651 U/L (73-393)
[2020-06-12 14:45] VITALS: BP 113/88; PULSE 103; RESP 18; TEMP 36.6; O2SAT 95
--- NOTE | 2020-06-12 16:04 | PCM.PN.HOSP ---
Reason for Visit: Follow-up on dyspnea/acute pancreatitis Subjective: Patient was seen and examined. She is able to tolerate some diet. She complains of feeling unsteady. PT and OT will be consulted. Objective: Physical exam: General: Alert, Oriented x3, Cooperative, No apparent distress HEENT: Atraumatic, PERRLA, EOMI, Normocephalic Oral: Moist Mucosa Neck: Supple, No JVD Lungs: Clear to auscultation, Normal air movement, No rhonchi, No wheeze, No rales Cardiovascular: Regular rate, Regular Rhythm, Normal S1, Normal S2, No murmurs Abdomen: Soft, Non Tender, Non-Distended, No Hepato-splenomegaly Extremities: No edema, Capillary Refill Less than 3 Seconds Skin: No rashes, No breakdown Neurological: Neuro grossly intact, Sensory exam intact to light touch and pain Psych/Mental Status: Anxious Vitals/I&O's: Vital Signs Temp Pulse Resp BP Pulse Ox 97.8 F 103 H 18 113/88 H 95 06/12/20 14:45 06/12/20 14:45 06/12/20 14:45 06/12/20 14:45 06/12/20 14:45 Oxygen Delivery Method Room Air Weight: 69.7 kg Body Mass Index (BMI) 24.0 Intake and Output for Last 24 Hours 06/10/20 06/11/20 06/12/20 23:59 23:59 23:59 Intake Total 1351.2 / 1351.2 2998.50 / 3098.50 2638.16 / 2638.16 Output Total 250 / 500 1000 / 1000 Balance 1351.2 / 1351.2 2748.50 / 2598.50 1638.16 / 1638.16 Microbiology Past 72 Hours 06/10/20 14:00 Mucosa - Nose SARS-CoV-2 Antigen (Rapid) - Final Laboratory Results 06/12/20 05:40: WBC 4.0 L, RBC 3.57 L, Hgb 11.7 L, Hct 34.1 L, MCV 95.5, MCH 32.8 H, MCHC 34.3, RDW Std Deviation 60.0 H, RDW Coeff of Laxmi 17.4 H, Plt Count 122 L, MPV 9.8, Immature Gran % (Auto) 0.800, Neut % (Auto) 54.4, Lymph % (Auto) 24.1, [place] % (Auto) 14.1 H, Eos % (Auto) 5.8 H, Baso % (Auto) 0.8, Absolute Neuts (auto) 2.2, Absolute Lymphs (auto) 0.96, Nucleated RBC % 0 06/12/20 05:40: Sodium 135 L, Potassium 3.4 L, Chloride 104, Carbon Dioxide 20.0 L, Anion Gap 11, BUN 2 L, Creatinine 0.45 L, Estim Creat Clear Calc 127.67, Est GFR (MDRD) Af Amer 184, Est GFR (MDRD) Non-Af 152, BUN/Creatinine Ratio 4.5 L, Glucose 78, Calcium 7.8 L, Phosphorus 4.1, Total Bilirubin 1.00, AST 31, ALT 27, Alkaline Phosphatase 102, Total Protein 6.2 L, Albumin 2.7 L, Globulin 3.5, Albumin/Globulin Ratio 0.8 L 06/12/20 05:40: Magnesium 1.9 06/12/20 05:40: Lipase 651 H Current Medications Acetaminophen (Acetaminophen 325 Mg Tablet) 650 mg PO Q6H PRN PRN PRN Reason: Pain Score 1-10/Temp > 100.7 F Dicyclomine HCl (Dicyclomine 10 Mg Capsule) 20 mg PO Q6H PRN PRN PRN Reason: abdominal discomfort Last Admin: 06/11/20 06:35 Dose: 20 mg Documented by: Enoxaparin Sodium (Enoxaparin 40 Mg/0.4 Ml Syringe) 40 mg SC DAILY [facility] Last Admin: 06/12/20 08:37 Dose: 40 mg Documented by: Folic Acid (Folic Acid 1 Mg Tablet) 1 mg PO DAILY@0800 [facility] Last Admin: 06/12/20 08:37 Dose: 1 mg Documented by: Gabapentin (Gabapentin 300 Mg Capsule) 300 mg PO Q8H PRN PRN PRN Reason: moderate to severe anxiety Hydroxyzine Pamoate (Hydroxyzine Yolande 25 Mg Capsule) 50 mg PO Q4H PRN PRN PRN Reason: mild anxiety Sodium Chloride () 250 mls @ 15 mls/hr IV .[id number] PRN PRN Reason: Saline Flush Last Infusion: 06/12/20 12:51 Dose: Infused Documented by: Loperamide HCl (Loperamide 2 Mg Capsule) 2 mg PO Q4H PRN PRN PRN Reason: LOOSE STOOLS Lorazepam (Lorazepam 2 Mg/Ml Syringe) 1 mg IV Q4H PRN PRN PRN Reason: ANXIETY Melatonin (Melatonin 3 Mg Tablet) 3 mg PO QHS PRN PRN PRN Reason: INSOMNIA Ondansetron HCl (Ondansetron 4 Mg/2 Ml Vial) 4 mg IV Q8H PRN PRN PRN Reason: NAUSEA/VOMITING Phenobarbital (Phenobarbital 32.4 Mg Tablet) 64.8 mg PO Q4H KEVIN; Taper Stop: 06/15/20 02:59 Last Admin: 06/12/20 15:12 Dose: Not Given Documented by: Sodium Chloride (0.9% Saline Lock 10 Ml Syringe) 10 - 40 ml IV UD PRN PRN Reason: SALINE FLUSH Last Admin: 06/12/20 08:37 Dose: 10 ml Documented by: Thiamine HCl (Thiamine Hydrochloride 100 Mg Tablet) 100 mg PO DAILYCM KEVIN Last Admin: 06/12/20 08:37 Dose: 100 mg Documented by: Trazodone HCl (Trazodone 100 Mg Tablet) 100 mg PO QHS PRN PRN Reason: INSOMNIA STROKE Vital Signs/Narrative: Vital Signs Temp Pulse Resp BP Pulse Ox 06/12/20 14:45 97.8 F 103 H 18 113/88 H 95 Medical Necessity - Tobacco Use Smoking Status: Never smoker Assessment/Plan All Active Problems (Last Reviewed 06/25/19 @ 10:00 by Salima Hurt) Acute pancreatitis (Acute) 1. Acute pancreatitis, secondary to alcohol, clinically improving, slowly Continue to advance diet as tolerated Continue with pain control 2. Acute alcohol withdrawal, improving, last CIWA score is 1 Continue alcohol withdrawal protocol 3. Hypokalemia/Hypomagnesemia/Hypophosphatemia, replaced, recheck in am 4. Elevated D-dimer, negative CT of the chest for PE, showed few groundglass densities in the right upper and lower lobes Recommended follow-up with pulmonology; needs referral to pulmonology 5. Bipolar disorder, continue home Abilify and BuSpar 6. T7 vertebral compression fracture, this is old, seen on MRI in November 2018, history of osteoporosis Needs to follow-up with osteoporosis treatment 7. DVT prophylaxis Lovenox subcu Inpatient E&M: [id number] [facility] Hosp L2
[2020-06-12] MEDS: Acetaminophen 325 MG Tablet 650 MG PO (19:26)
[2020-06-12 22:31] VITALS: BP 131/81; PULSE 102; RESP 19; TEMP 36.5; O2SAT 95
[2020-06-13 02:25] VITALS: BP 109/82; PULSE 98; RESP 17; TEMP 36.6; O2SAT 95
[2020-06-13] MEDS: Acetaminophen 325 MG Tablet 650 MG PO (05:56)
[2020-06-13 06:14] LABS: Absolute Lymphocyte Count 0.85 X10^3/uL (0.83-4.51); Absolute Neutrophil Count 1.6 X10^3/uL (2.0-7.7); Basophil# 0.02 X10^3/uL; Basophil% 0.6 % (0-1); Eosinophil# 0.19 X10^3/uL; Hematocrit 36.3 % (37-47); Hemoglobin 12.3 g/dL (12.0-15.0); Lymphocyte # 0.85 X10^3/ul (4.0); Lymphocyte % 26.6 % (19-41); Mean Corp Hgb Conc 33.9 g/dL (32-36); Mean Corpuscular Hgb 32.5 pg (27.0-32.0); Monocyte# 0.47 X10^3/uL; Monocyte% 14.7 % (0-10); NRBC Flagged by Analyzer 0 % (0-5); Neutrophil # 1.63 X10^3/uL (2.7-7.7); Neutrophil % 51.2 % (47-70); Platelet Count 134 K/mm3 (150-450); RBC Distribution Width CV 18.4 % (11.6-14.6); RBC Distribution Width SD 63.4 fl (35.1-43.9); Red Blood Count 3.78 M/mm3 (4.2-5.4); White Blood Count 3.2 K/mm3 (4.4-11.0)
[2020-06-13 06:45] LABS: ALB/GLOB Ratio 0.7 RATIO (0.9-2.4); AST(SGOT) 31 U/L (15-37); Alanine Aminotransfer ALT/SGPT 26 U/L (13-56); Albumin, Serum 2.8 g/dL (3.2-5.0); Alkaline Phosphatase 105 U/L (45-117); Anion Gap 11 (5-15); BUN 2 mg/dL (7-18); BUN/Creat Ratio 4.2 RATIO (10-20); Calcium,Total 8.5 mg/dL (8.5-10.1); Chloride 104 mmol/L (98-107); Creatinine, Serum 0.48 mg/dL (0.55-1.02); EST Glomerular Filtration Rate 141 mL/min (>60); Est Glom Filt Rate - Afr Amer 171 mL/min (>60); Estimated Creatinine Clearance 119.69 ml/min; Glucose 84 mg/dL (74-106); Potassium 3.3 mmol/L (3.5-5.1); Protein, Total 6.8 g/dL (6.4-8.2); Sodium Level 136 mmol/L (136-145)
[2020-06-13 08:25] VITALS: BP 125/86; PULSE 110; RESP 18; TEMP 36.7; O2SAT 94
[2020-06-13] MEDS: Folic Acid 1 MG Tablet PO (08:26)
[2020-06-13] MEDS: Thiamine Hydrochloride 100 MG Tablet PO (08:26)
[2020-06-13] MEDS: Enoxaparin 40 MG/0.4 ML Syringe SC (08:26)
--- NOTE | 2020-06-13 10:29 | DS.PCM_ITS ---
Discharge Date and Diagnosis Date of Admission: 06/10/20 Date of Discharge: 06/13/20 - Secondary Discharge Diagnosis Chronic Problems: Chronic Problems (Last Reviewed 06/25/19 @ 10:00 by Salima Hurt) Bipolar disorder (Chronic) Alcoholism (Chronic) Chronic back pain (Chronic) Anxiety (Chronic) Osteoporosis (Chronic) Compression fracture of thoracic spine, non-traumatic (Chronic) Hospital Course and Treatment Imaging Results: STUDY: CTA CHEST REASON FOR EXAM: Female, 60 years old. INCREASE SOB X 1 WEEK. ELEVATED D-DIMER RADIATION DOSAGE (If Supplied By Facility): CTDIvol = ( 7.29 ) mGy, DLP = ( 351.55 ) mGycm TECHNIQUE: The examination was performed with the intravenous administration of IV 100mL Isovue-370. Post-processing of the angiographic images was performed, with multiplanar reformation and 3D reconstruction. Individualized dose optimization techniques were used for this CT. COMPARISON: None. FINDINGS: The pulmonary artery and its branches demonstrate no evidence for filling defects to suggest acute pulmonary embolism. No pericardial effusion. Normal caliber of the thoracic aorta. Origin of the great vessels are patent. No evidence for mediastinal lymphadenopathy. A few scattered groundglass densities in the right upper and lower lobe seen possibly pulmonary congestion or developing pulmonary infiltrates There is stranding adjacent to the pancreas noted which can be seen in the setting of mild acute interstitial pancreatitis. Hepatic steatosis. Small punctate calcification in the tail of the pancreas. Osseous structures demonstrate no acute abnormalities. Scarring in the left kidney. Compression fracture of the T5, T7 and T3 vertebral bodies noted. Approximately 80-90% loss of vertebral body height at T7 level. Minimal retropulsion. No paraspinal soft tissue mass. IMPRESSION: No evidence for acute pulmonary embolism. No evidence for aortic dissection. Hepatic steatosis. Mild edema adjacent to the pancreas which can be seen in the setting of acute interstitial pancreatitis. T7 vertebral body compression fracture which was not seen on the previous exam trauma 2017. A few scattered groundglass densities in the right upper and lower lobe seen possibly pulmonary congestion or developing pulmonary infiltrates. No consolidative process TUDY: ABDOMINAL ULTRASOUND - RIGHT UPPER QUADRANT REASON FOR VISIT: Female, 60 years old PANCREATITIS TECHNIQUE: Ultrasound evaluation of the right upper quadrant was performed with real-time and static oh-scale imaging. TECHNICAL QUALITY: Adequate. COMPARISON: None. FINDINGS: Liver: The liver is enlarged and measures 19.8 cm. There is increased echogenicity consistent with fatty infiltration. The bile ducts are within normal limits. There is hepatic color flow. The direction of portal flow is hepatopetal. There is no demonstrated mass lesion. Gallbladder: Normal distended gallbladder. The gallbladder wall measures 1.9 mm. There is a negative sonographic Rosenberg''s sign. There is no pericholecystic fluid. There are multiple echogenic structures within the gallbladder, consistent with multiple gallstones. Common Bile Duct (C.B.D.): The common bile duct measures 3.5 mm. Pancreas: Normal size of the head, body and tail of the pancreas. There is normal echogenicity of the pancreas. There is no demonstrated pancreatic mass or cyst. Right Kidney: Normal size of the right kidney. The right kidney measures 10.8 cm x 5.6 cm x 5.7 cm. Normal renal cortex. The right cortex measures 1.5 cm. There is no demonstrated renal mass or cyst. There is no right hydronephrosis. US/Abdomen Limited IMPRESSION: Mild hepatomegaly and diffuse fatty infiltration of the liver. Cholelithiasis. None Operations: None Procedures: None Summary of Care Provided: The patient is a 60 year old F who presented to the ED at [facility] on 06/10 with shortness of breath. She stated it had been going on for 3 to 4 weeks, and she is extremely concerned that she has pulmonary fibrosis because her father had it. She was maintaining her oxygen sats on room air. She stated that her father was exposed to asbestos, and she denies any type of work history that would lead to pulmonary fibrosis. Her COVID test was negative and she denies any contacts. Her CTA demonstrates some scattered ground glass densities which she will need pulmonary follow-up after discharge and this referral will be left to her PCP as she is to f/u with them in 1-2 weeks. She was also found to have an anion gap metabolic acidosis, and her lactic acid was normal. She did admit to drinking heavily, about half a bottle of liquor every day, so it was felt that she has an alcoholic ketoacidosis. She did have small acetones in her urine. She underwent detox from the alcohol as she had been drinking for the last 2 months but refused to speak with 180 and was given resources but declined any further help. Her Lipase was elevated but she had no abdominal pain. She had some diarrhea with eating but only 2-3 loose BM/ day after PO intake. I suspect this is related to her pancreatic issues and if it continues after d/c would recommend Creon as I suspect she has a component of chronic pancreatitis. She was d/c with a referral for home health for further PT and OT. She is to f/u with her PCP in 1-2 weeks for further care and hospital f/u. She was d/c in stable condition. Discharge Diagnoses Acute on Chronic Pancreatitis Diarrhea EtOH Abuse/Withdrawal-resolved Hypokalemia Thrombocytopenia 2/2 marrow toxicity related to EtOH use Mild Leukopenia--> suspect medication related AGMA-resolved SOB Bipolar disorder T7 Vertebral Compression Fracture Osteoporosis Discharge time > 31' - Physical Exam Vitals/I&O's: Vital Signs Temp Pulse Resp BP Pulse Ox 98.0 F 110 H 18 125/86 H 94 06/13/20 08:25 06/13/20 08:25 06/13/20 08:25 06/13/20 08:25 06/13/20 08:25 Oxygen Delivery Method Room Air Weight: 69.7 kg Body Mass Index (BMI) 24.0 Intake and Output for Last 24 Hours 06/11/20 06/12/20 06/13/20 23:59 23:59 23:59 Intake Total 2998.50 / 3098.50 3038.16 / 3038.16 600 / 600 Output Total 250 / 500 1000 / 1000 Balance 2748.50 / 2598.50 2038.16 / 2037.16 600 / 600 General: Alert, Oriented x3, Cooperative, No apparent distress, Well developed, Well nourished, - - Upper middle aged white female sitting up in a chair watching TV, non toxic HEENT: Atraumatic, PERRLA, EOMI, Normocephalic, EAC Clear Oral: Moist Mucosa, No Gingival or Mucosal Lesions/ Ulcerations Neck: Supple, No JVD, Trachea Midline, Thyroid Normal Size and Texture Lungs: Clear to auscultation, No rhonchi, No wheeze, No rales, Diminished - diffusely Cardiovascular: Regular rate, Regular Rhythm, Normal S1, Normal S2, No murmurs, No Ectopic Activity, No rub noted, No Gallop Abdomen: Bowel Sounds Present, Soft, Non Tender, Non-Distended, No Hepato- splenomegaly, No hernias noted Extremities: No clubbing, No cyanosis, No edema, Capillary Refill Less than 3 Seconds, Peripheral Pulses Normal Skin: No rashes, No breakdown Musculoskeletal: No Tenderness to Palpation of Joints or Extremities, No Muscle Wasting Lymphatic: No Cervical, Supraclavicular, or Inguinal Adenopathy Neurological: Cranial nerves II-XII grossly intact, Neuro grossly intact, Muscle tone normal, Coordination normal Psych/Mental Status: Normal Affect, Appropriate, Alert and oriented to time, place, person, mood and affect Microbiology Past 72 Hours 06/10/20 14:00 Mucosa - Nose SARS-CoV-2 Antigen (Rapid) - Final Laboratory Results 06/12/20 05:40: Lipase 651 H 06/13/20 06:04: WBC 3.2 L, RBC 3.78 L, Hgb 12.3, Hct 36.3 L, MCV 96.0, MCH 32.5 H, MCHC 33.9, RDW Std Deviation 63.4 H, RDW Coeff of Laxmi 18.4 H, Plt Count 134 L , MPV 10.0, Immature Gran % (Auto) 0.900, Neut % (Auto) 51.2, Lymph % (Auto) 26.6, [place] % (Auto) 14.7 H, Eos % (Auto) 6.0 H, Baso % (Auto) 0.6, Absolute Neuts (auto) 1.6 L, Absolute Lymphs (auto) 0.85, Nucleated RBC % 0 06/13/20 06:04: Sodium 136, Potassium 3.3 L, Chloride 104, Carbon Dioxide 21.0, Anion Gap 11, BUN 2 L, Creatinine 0.48 L, Estim Creat Clear Calc 119.69, Est GFR (MDRD) Af Amer 171, Est GFR (MDRD) Non-Af 141, BUN/Creatinine Ratio 4.2 L, Glucose 84, Calcium 8.5, Total Bilirubin 0.80, AST 31, ALT 26, Alkaline Phosphatase 105, Total Protein 6.8, Albumin 2.8 L, Globulin 4.0, Albumin/Globulin Ratio 0.7 L Current Medications Acetaminophen (Acetaminophen 325 Mg Tablet) 650 mg PO Q6H PRN PRN PRN Reason: Pain Score 1-10/Temp > 100.7 F Last Admin: 06/13/20 05:56 Dose: 650 mg Documented by: Dicyclomine HCl (Dicyclomine 10 Mg Capsule) 20 mg PO Q6H PRN PRN PRN Reason: abdominal discomfort Last Admin: 06/11/20 06:35 Dose: 20 mg Documented by: Enoxaparin Sodium (Enoxaparin 40 Mg/0.4 Ml Syringe) 40 mg SC DAILY [facility] Last Admin: 06/13/20 08:26 Dose: 40 mg Documented by: Folic Acid (Folic Acid 1 Mg Tablet) 1 mg PO DAILY@0800 [facility] Last Admin: 06/13/20 08:26 Dose: 1 mg Documented by: Gabapentin (Gabapentin 300 Mg Capsule) 300 mg PO Q8H PRN PRN PRN Reason: moderate to severe anxiety Hydroxyzine Pamoate (Hydroxyzine Yolande 25 Mg Capsule) 50 mg PO Q4H PRN PRN PRN Reason: mild anxiety Sodium Chloride () 250 mls @ 15 mls/hr IV .[id number] PRN PRN Reason: Saline Flush Last Infusion: 06/12/20 12:51 Dose: Infused Documented by: Loperamide HCl (Loperamide 2 Mg Capsule) 2 mg PO Q4H PRN PRN PRN Reason: LOOSE STOOLS Lorazepam (Lorazepam 2 Mg/Ml Syringe) 1 mg IV Q4H PRN PRN PRN Reason: ANXIETY Melatonin (Melatonin 3 Mg Tablet) 3 mg PO QHS PRN PRN PRN Reason: INSOMNIA Ondansetron HCl (Ondansetron 4 Mg/2 Ml Vial) 4 mg IV Q8H PRN PRN PRN Reason: NAUSEA/VOMITING Phenobarbital (Phenobarbital 32.4 Mg Tablet) 64.8 mg PO Q6H KEVIN; Taper Stop: 06/15/20 02:59 Last Admin: 06/13/20 08:26 Dose: Not Given Documented by: Sodium Chloride (0.9% Saline Lock 10 Ml Syringe) 10 - 40 ml IV UD PRN PRN Reason: SALINE FLUSH Last Admin: 06/12/20 08:37 Dose: 10 ml Documented by: Thiamine HCl (Thiamine Hydrochloride 100 Mg Tablet) 100 mg PO DAILYCM KEVIN Last Admin: 06/13/20 08:26 Dose: 100 mg Documented by: Trazodone HCl (Trazodone 100 Mg Tablet) 100 mg PO QHS PRN PRN Reason: INSOMNIA Home Medications: Medications to take at Discharge Aripiprazole 10 mg PO DAILY 03/05/19 Denosumab [Prolia] 60 mg SUBCUT [id number] 05/28/19 Multivitamins,Therapeutic [Multivitamin] 1 tab PO DAILYCM 05/28/19 buspirone 10 mg tablet 10 mg PO DAILY tab 06/25/19 albuterol sulfate 90 mcg/actuation aerosol inhaler 1 - 2 puff INHALATION Q6H PRN #8.5 g 05/31/20 Cholecalciferol (Vitamin D3) [Vitamin D3] 2,000 unit PO DAILY 06/10/20 Meloxicam [Mobic] 1 tab PO DAILY PRN PRN 06/12/20 Primary Care Physician: Edwadr Mc MD [Primary Care Provider] - Medical Necessity - Tobacco Use Smoking Status: Never smoker Meaningful Use Info Meaningful Use Diagnoses (Choose all that apply): None applicable Inpatient E&M: [id number] [facility] Hosp
--- NOTE | 2020-06-13 10:30 | DCINST_ITS ---
You will use the following diet at home:: Regular Your food should be the consistency of: Regular Your liquids should be the consistency of: Regular/Thin Discharge Activity: Return to Normal Activity Allergies/Adverse Reactions: Allergies No Known Allergies Allergy (Verified 06/25/19 09:58) Medications to take at Discharge Aripiprazole 10 mg PO DAILY 03/05/19 Denosumab [Prolia] 60 mg SUBCUT [id number] 05/28/19 Multivitamins,Therapeutic [Multivitamin] 1 tab PO DAILYCM 05/28/19 buspirone 10 mg tablet 10 mg PO DAILY tab 06/25/19 albuterol sulfate 90 mcg/actuation aerosol inhaler 1 - 2 puff INHALATION Q6H PRN #8.5 g 05/31/20 Cholecalciferol (Vitamin D3) [Vitamin D3] 2,000 unit PO DAILY 06/10/20 Meloxicam [Mobic] 1 tab PO DAILY PRN PRN 06/12/20 Primary Care Physician: Edward Mc MD [Primary Care Provider] - Please follow up with your Primary Care Physician in: 1-2 weeks--> call for an appt Test Results: Test results from this visit will be discussed in further detail at your follow- up appointment, if applicable.
--- NOTE | 2020-06-13 11:20 | PHA.DC.MR ---
Pharmacy Service has performed discharge medication reconciliation for this patient. The patient's discharge medication list was reviewed for discrepancies and discrepancies were resolved. Home Medications Aripiprazole 10 mg PO DAILY 03/05/19 Denosumab [Prolia] 60 mg SUBCUT [id number] 05/28/19 Multivitamins,Therapeutic [Multivitamin] 1 tab PO DAILYCM 05/28/19 buspirone 10 mg tablet 10 mg PO DAILY tab 06/25/19 albuterol sulfate 90 mcg/actuation aerosol inhaler 1 - 2 puff INHALATION Q6H PRN #8.5 g 05/31/20 Cholecalciferol (Vitamin D3) [Vitamin D3] 2,000 unit PO DAILY 06/10/20 Meloxicam [Mobic] 1 tab PO DAILY PRN PRN 06/12/20
--- NOTE | 2020-06-13 11:23 | CASEMGMT ---
ARTUR POLLOCK updated by VIJAY that patient would like [facility] at discharge for therapy. ARTUR POLLOCK provided patient with in-network agencies. Patient would like [facility]. ARTUR POLLOCK sent referral to [facility] and awaiting acceptance. CM will continue to follow this patient and plan for a safe discharge.
[2020-06-13 12:00] VITALS: BP 144/88; PULSE 112; RESP 18; TEMP 36.5; O2SAT 95
== END 2020-06-13 13:30 | disposition home or self-care (01) | DRG 282 ==
LOC: ED 13:47 → MS3 06-11 06:55
PROVIDERS: Emergency Medicine; Internal Medicine; Admitting Provider Family Medicine; Emergency Provider Emergency Medicine; PCP Internal Medicine; Visit Provider Internal Medicine
DX: K85.20 Alcohol induced acute pancreatitis without necrosis or infection (principal); F10.239 Alcohol dependence with withdrawal, unspecified; Y90.9 Presence of alcohol in blood, level not specified; M48.54XA Collapsed vertebra, not elsewhere classified, thoracic region, initial encounter for fracture; E87.2 Acidosis; R91.8 Other nonspecific abnormal finding of lung field; E83.42 Hypomagnesemia; E83.39 Other disorders of phosphorus metabolism; D69.59 Other secondary thrombocytopenia; F41.9 Anxiety disorder, unspecified; M41.9 Scoliosis, unspecified; F31.9 Bipolar disorder, unspecified; E87.6 Hypokalemia; M81.0 Age-related osteoporosis without current pathological fracture; M19.90 Unspecified osteoarthritis, unspecified site; Z79.899 Other long term (current) drug therapy
CPT/HCPCS: 36415; 71045; 71275; 76705; 80048; 80053; 82009; 83605; 83690; 83735; 84100; 84484; 85025; 85379; 87426; 93005; 97162; 97166; 99284; J7030; J7050; J7120; Q9967; A4216; J3490

== ENCOUNTER → 2020-06-21 08:08 | Outpatient (CLI) | payer MEDICAID, SELFPAY ==
[2020-06-14 14:14] VITALS: BMI 24.4
--- NOTE | 2020-06-22 16:47 | PFTCOMP_ITS ---
COMPLETE PULMONARY FUNCTION TEST INTERPRETATION Brief HPI: Patient is a 60 year old female, currently under the care of Marcell Vazquez, who presents to [facility] for complete pulmonary function tests secondary to diagnosis of dyspnea. Respiratory therapist reports good effort and reproducible results. Interpretation: Forced expiration spirometry shows no large airways obstructive ventilatory defect with an FEV1 of 89% predicted. There is no significant bronchodilator response by strict ATS criteria. Spirograms are of good quality and plateau normally. The respiratory flow volume loop shows a normal pattern. Lung volumes by body plethysmography show a normal total lung capacity at 4.95 L, 87% predicted. All other lung volumes are within normal limits. Diffusion capacity by carbon monoxide is normal at 78% predicted. The airway resistance is normal. No previous pulmonary function tests were available for review. Impression: These pulmonary function tests are within normal limits.
== END ==
PROVIDERS: PCP Internal Medicine; Referring Provider Nurse Practitioner Family; Visit Provider Nurse Practitioner Family
DX: R06.00 Dyspnea, unspecified (principal)
CPT/HCPCS: 94060; 94726; 94729

== ENCOUNTER → 2020-07-17 15:34 | Outpatient (CLI) | payer MEDICAID, SELFPAY ==
[2020-07-17 15:17] VITALS: BMI 23.9
[2020-07-17 16:38] LABS: Absolute Lymphocyte Count 2.21 X10^3/uL (0.83-4.51); Absolute Neutrophil Count 3.5 X10^3/uL (2.0-7.7); Basophil# 0.03 X10^3/uL; Basophil% 0.5 % (0-1); Eosinophil# 0.16 X10^3/uL; Eosinophils% 2.5 % (0-5); Hematocrit 45.8 % (37-47); Hemoglobin 14.9 g/dL (12.0-15.0); Lymphocyte # 2.21 X10^3/ul (4.0); Mean Corp Hgb Conc 32.5 g/dL (32-36); Mean Corpuscular Hgb 30.8 pg (27.0-32.0); Mean Corpuscular Volume 94.6 fL (81-99); Mean Platelet Vol. 10.4 fl (6.2-12.0); Monocyte# 0.41 X10^3/uL; Monocyte% 6.5 % (0-10); NRBC Flagged by Analyzer 0 % (0-5); Neutrophil # 3.49 X10^3/uL (2.7-7.7); Neutrophil % 55.3 % (47-70); Platelet Count 302 K/mm3 (150-450); RBC Distribution Width CV 15.2 % (11.6-14.6); RBC Distribution Width SD 53.7 fl (35.1-43.9); Red Blood Count 4.84 M/mm3 (4.2-5.4); White Blood Count 6.3 K/mm3 (4.4-11.0)
[2020-07-17 17:01] LABS: ALB/GLOB Ratio 0.8 RATIO (0.9-2.4); AST(SGOT) 19 U/L (15-37); Alanine Aminotransfer ALT/SGPT 29 U/L (13-56); Albumin, Serum 3.9 g/dL (3.2-5.0); Alkaline Phosphatase 112 U/L (45-117); Anion Gap 9 (5-15); BUN 10 mg/dL (7-18); BUN/Creat Ratio 12.4 RATIO (10-20); Calcium,Total 9.3 mg/dL (8.5-10.1); Chloride 103 mmol/L (98-107); Creatinine, Serum 0.81 mg/dL (0.55-1.02); EST Glomerular Filtration Rate 77 mL/min (>60); Est Glom Filt Rate - Afr Amer 93 mL/min (>60); Globulin 4.9 g/dL (2.2-4.2); Glucose 99 mg/dL (74-106); Potassium 4.2 mmol/L (3.5-5.1); Protein, Total 8.8 g/dL (6.4-8.2); Sodium Level 138 mmol/L (136-145); T4 Free Direct 1.02 ng/dL (0.76-1.46); Thyroid Stim Hormone (TSH) 1.14 uIU/mL (0.358-3.74)
== END ==
PROVIDERS: PCP Internal Medicine; Referring Provider Internal Medicine; Visit Provider Internal Medicine
DX: F10.20 Alcohol dependence, uncomplicated (principal); F31.9 Bipolar disorder, unspecified; R00.0 Tachycardia, unspecified
CPT/HCPCS: 36415; 80053; 84439; 84443; 85025

== ENCOUNTER → 2020-07-26 10:30 | Outpatient (CLI) | payer MEDICAID, SELFPAY ==
[2020-06-26 09:45] VITALS: BMI 24.5
[2020-07-17 15:17] VITALS: BMI 23.9
--- NOTE | 2020-07-28 08:02 | PFT ---
INTRODUCTION: The patient is a 60-year-old female that presents for pulmonary function studies secondary to a diagnosis of dyspnea. Respiratory therapy reports good patient effort. Bronchodilators were used during testing. INTERPRETATION: Forced expiration spirometry demonstrates no evidence of a large airways obstructive ventilatory defect. There was no significant response to aerosolized bronchodilators. Spirograms are of good quality and plateau normally. Body plethysmography was performed and revealed a decreased TLC to 4.84 L, 85% of predicted, indicative of a mild restrictive ventilatory impairment. Diffusing capacity by single breath CO is within normal limits. When compared to previous pulmonary function studies from June 2020, there has been a 27% improvement in DLCO. IMPRESSION: Isolated mild restrictive ventilatory impairment with preserved diffusing capacity. There has been improvement in the patient's DLCO since June 2020.
== END ==
PROVIDERS: PCP Internal Medicine; Referring Provider Internal Medicine Critical Care Medicine; Visit Provider Internal Medicine Critical Care Medicine
DX: R06.00 Dyspnea, unspecified (principal)
CPT/HCPCS: 94060; 94726; 94729

== ENCOUNTER → 2020-07-31 12:13 | Outpatient (CLI) | payer MEDICAID, SELFPAY ==
[2020-06-26 09:45] VITALS: BMI 24.5
[2020-07-17 15:17] VITALS: BMI 23.9
[2020-07-31 12:38] VITALS: PULSE 105; PULSE 108; PULSE 112; PULSE 114; PULSE 115; PULSE 117; PULSE 121; O2SAT 95; O2SAT 96
--- NOTE | 2020-07-31 15:21 | WT_ITS ---
PSN 6 Minute Walk Test - 6 Minute Walk Test 6 Minute Walk Test: 6 Minute Walk Test PSN:6-Minute Walk Test Start: 07/31/20 12:38 Freq: Status: Active Protocol: [id number] Document 07/31/20 12:38 [facility] (Rec: 07/31/20 12:41 [facility] [id number]) 6 Minute Walk Test Date Performed 07/31/20 Time Performed 12:20 Height 5 ft 5 in Weight: 68.492 kg Weight in Pounds 151.[address]: Laron Colindres Assistive device used: None Pre-test Oxygen Delivery Method Room Air Pulse Ox (%) 96 Pulse Rate (60-100 beats/min) 105 H Dyspnea Reina Scale (0-10) 0 1st minute Oxygen Delivery Method Room Air Pulse Ox (%) 95 Pulse Rate (60-100 beats/min) 108 H Dyspnea Reina Scale (0-10) 1 Number of Rests Taken 0 2nd minute Oxygen Delivery Method Room Air Pulse Ox (%) 95 Pulse Rate (60-100 beats/min) 112 H Dyspnea Reina Scale (0-10) 1 Number of Rests Taken 0 3rd minute Oxygen Delivery Method Room Air Pulse Ox (%) 95 Pulse Rate (60-100 beats/min) 117 H Dyspnea Reina Scale (0-10) 2 Number of Rests Taken 0 4th minute Oxygen Delivery Method Room Air Pulse Ox (%) 95 Pulse Rate (60-100 beats/min) 121 H Dyspnea Reina Scale (0-10) 2 Number of Rests Taken 0 5th minute Oxygen Delivery Method Room Air Pulse Ox (%) 95 Pulse Rate (60-100 beats/min) 115 H Dyspnea Reina Scale (0-10) 2 Number of Rests Taken 0 6th minute Oxygen Delivery Method Room Air Pulse Ox (%) 95 Pulse Rate (60-100 beats/min) 114 H Dyspnea Reina Scale (0-10) 2 Number of Rests Taken 0 Post-test Oxygen Delivery Method Room Air Pulse Ox (%) 96 Pulse Rate (60-100 beats/min) 108 H Dyspnea Reina Scale (0-10) 0 Full Laps Walked 18 Partial Lap, Number of Tiles Walked 18 Total Distance Walked (ft) 1080 - Interpretation Interpretation: Patient was able to ambulate 1080 feet over the course of 6 minutes on room air with no assistive devices or breaks. The patient experienced no significant desaturation, but did have significant tachycardia as high as 121 bpm. These findings are consistent with a cardiovascular limitation exercise tolerance. - Recommendations Recommendations: No supplemental oxygen is indicated at this time. However, patient would benefit from a cardiovascular evaluation if not completed previously.
== END ==
PROVIDERS: PCP Internal Medicine; Referring Provider Internal Medicine Critical Care Medicine; Visit Provider Internal Medicine Critical Care Medicine
DX: R06.00 Dyspnea, unspecified (principal)
CPT/HCPCS: 94618

== ENCOUNTER 2020-08-02 13:28 | Outpatient (RCR) | payer MEDICAID, SELFPAY ==
[2020-07-17 15:17] VITALS: BMI 23.9
--- NOTE | 2020-08-09 10:11 | HP.FCE ---
Floor (Occasional 1-33% of Day): 30# Floor (Frequent 34-66% of Day): 15# Floor (Constant 67-100% of Day): 6# Floor PDL: Light Knee (Occasional 1-33% of Day): 30# Knee (Frequent 34-66% of Day): 15# Knee (Constant 67-100% of Day): 6# Knee PDL: Light Waist (Occasional 1-33% of Day): 25# Waist (Frequent 34-66% of Day): 12# Waist (Constant 67-100% of Day): 5# Waist PDL: Light Shoulder (Occasional 1-33% of Day): 15# Shoulder (Frequent 34-66% of Day): 8# Shoulder (Constant 67-100% of Day): NA Shoulder PDL: Sedentary-Light Overhead (Occasional 1-33% of Day): 10# Overhead (Frequent 34-66% of Day): NA Overhead (Constant 67-100% of Day): NA Overhead PDL: Sedentary Comments: pt demo need for 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 with verbal cues Bending: Occasional Ability (1-33% of day) Squatting: Occasional Ability (1-33% of day) Kneeling: No Ablility (0% of day) Reaching out: Frequent Ability (34-66% of day) Reaching up: Frequent Ability (34-66% of day) Sitting: Frequent Ability (34-66% of day) Walking: Frequent Ability (34-66% of day) Standing: Occasional Ability (1-33% of day) Duration Sedentary Sedentary Light Light Light Medium Medium Medium Heavy Very Heavy Heavy Occasional (0-33% of day) Frequent (34-66% of day) Constant (67-100% of day) 10 # Negligible Negligible 15 # 8 # Negligible 20 # 10# Negli. 35 # 18 # 7 # 50 # 25 # 10 # 75 # 100 # >100 # 38 # 50 # >50 # 15 # 20 # >20 # Height: 1.73 m Weight:: 68.492 kg Hand Dominance: right Medical History Including Restrictions: Pt states she was in good health until she suffered a fall 2017 down some stairs. pt states she stuffed multiple fx in neck and back but cannot recall where. pt states she is not aware of any lifting precautions or work restriction. pt does not exercise on a regular basis. pt states she went to ER due to SOB. pt states she did see a vest maker to see about some SOB. pt states she is to return to him in October 2020. Diagnoses: Osteoporosis. Arthritis. Scoliosis. back pain. neck pain. right hip replacement 2008 Symptoms: SOB. low back pain Pain: deines pain Work History: pt currently not working would like to find a job and most job descriptions required lift of 25# -pt states she would like to work office work. 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 pt states she was employed there about a year. pt states she got laid off and has not been able to find work replacement at this time. pt states prior to this job she was unemployed recovering from her fall. 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 Behavioral: Pt cooperative and put good effort. ADLS: Pt lives in a one story apt with two small steps with one handrail. Pt states she has a tub shower combination. pt reports she stands for shower and is ind. with bathing and dressing. pt states she is ind. with cleaning, laundry and grocery shopping. pt drives ind. pt is ind. Physical Examination: pts resting heart rate 100 spO2 98 ROM: pt demo with ROM WFL. Bilateral UE WNL. LE WNL. noted socliocis Strength: MMT 4/5 Right Social Human Services Assistants Strength Average: 35.33 Right Social [employer] Assistants Strength Percentile: 9% Left [employer] Services Assistants Strength Average: 42.33 Left Social Human Services Assistants Strength Percentile: 26% Right Lateral Pinch Average: 8.00 Right Lateral Pinch Percentile: 10% Left Lateral Pinch Average: 7.33 Left Lateral Pinch Percentile: 10% Right Tripod Pinch Average: 6.00 Right Tripod Pinch Percentile: 10% Left Tripod Pinch Average: 6.00 Left Tripod Pinch Percentile: 10% Sensation: denies Fine Motor: 9-hole peg test. right 21.13 sec. = 50%. left 23.51sec = 25% Balance: no loss of balace but pt did use external support with one legged tasks Bending: pt demo the ability to bend forward three times, ten times with external support. pt can bend forward on a occasional ability. heart rate 121 spO2 97 Squatting: pt demo the ability to squat three times and ten times using external support. Pts heart rate increased from 100 to 123. pt can squat on a occasional ability. pt states she really hasn't been active for over a year and has noticed a generalized weakness. Kneeling: unable Reaching out/up: pt demo the ability to reach up/out three times ten times and ten times rapidly while sitting. pt can reach up/out on a frequent ability. Walking: Pt ambulated 7 min with a quick reciprocal gait pattern. pt did reports she was getting winded - heart rate 127 and spO2 97. pt indicates on functional questionnaire she can walk a block before she needs to sit down. Pt can ambulate on an occasional ability Standing: pt demo the ability to stand for 8 min with shifting her body weight. pt can stand on occasional ability Sitting: pt sat for 30 min with no expressed or apparent discomfort. pt can sit on a frequent ability. Climbing Stairs: Pt can ascend ten steps with reciprocal step pattern and use of hand rail- pt can descend ten steps with reciprocal step pattern and use of one hand rail- heart rate 132 following spO2 97 Floor Lift: Pt demo the ability to lift 30# maximally from this level with good lifting mechanics Knee Lift: Pt demo the ability to lift 30# maximally from this level with fair lift mechanics. therapist provided verbal cues and pt correct lift mechanics. Waist Lift: Pt demo the ability to lift 25# maximally from this level with fair lifting mechanics. therapist provided verbal cues pt able to correct. Shoulder Lift: Pt demo the ability to lift 15# maximally from this level with fair lifting mechanics. therapist provided verbal cues pt able to correct. Overhead Lift: Pt demo the ability to lift 10# maximally from this level with fair lifting mechanics. therapist provided verbal cues pt able to correct. Carrying: pt demo good ability to carry 15# with good body mechanics Comments: pt needed cues on good lifting mechanics with knee, waist and shoulder height lifts.
--- NOTE | 2020-08-09 10:12 | HP.OTFCE.D ---
FCE D/C Summary - Discharge PRASHANT MAZARIEGOS was seen for a one time visit for an FCE on 08/02/20 and is discharged.
== END 2020-08-02 19:00 | disposition home or self-care (01) ==
LOC: OT 13:28
PROVIDERS: PCP Internal Medicine; Referring Provider Family Medicine; Visit Provider Family Medicine
DX: M54.5 Low back pain (principal); X50.0XXD Overexertion from strenuous movement or load, subsequent encounter
CPT/HCPCS: 97750

== ENCOUNTER → 2020-10-03 16:44 | Outpatient (CLI) | payer MEDICAID, SELFPAY ==
[2020-10-03 15:43] VITALS: BMI 24.0
--- NOTE | 2020-10-03 16:45 | RAD_ITS ---
EXAM: XR LUMBOSACRAL SPINE, 2 OR 3 VIEWS CLINICAL INDICATION: New lower thoracic upper lumbar back pain -- HX osteoporosis and thor and lumb comp fx TECHNIQUE: Frontal and lateral views of the lumbar spine and sacrum. rScriptor report generation technology utilized. COMPARISON: 02/02/2019 FINDINGS: VERTEBRAE: Mild compression fracture of L2 is stable. Minimal compression of the superior endplate of L5 since previous exam. No spondylolisthesis. Preservation of the normal lumbar lordosis. No significant facet arthropathy. DISC SPACES: No acute findings. Disc spaces are maintained. GASTROINTESTINAL TRACT: Unremarkable as visualized. Included bowel gas pattern is non-obstructive. RAD/Lumbar Spine 2 or 3 Views IMPRESSION: No definite acute findings in the lumbar spine. Electronically Signed: Shabbir Bo MD at 21:18 EDT , Service support ,
--- NOTE | 2020-10-03 16:45 | RAD_ITS ---
STUDY: X-RAY - THORACIC SPINE REASON FOR EXAM: Female, 60 years old. New lower thoracic/upper lumbar back pain TECHNIQUE: 2 view(s) of the thoracic spine were obtained. COMPARISON: 02/02/2019. FINDINGS: Prominent localized kyphosis at T7 and T8, where there are prominent compression fractures that were also present previously. Levoconvex scoliosis seen of the upper thoracic spine, stable. No definite new compression fractures. RAD/Thoracic Spine 3 Views IMPRESSION: Demineralization, degenerative changes, and severe compression fractures of T7 and T8 which were present previously. Electronically Signed: Shabbir Bo MD at 17:03 EDT , Service support ,
== END ==
PROVIDERS: PCP Internal Medicine; Referring Provider Internal Medicine; Visit Provider Internal Medicine
DX: M54.6 Pain in thoracic spine (principal); M54.5 Low back pain
CPT/HCPCS: 72072; 72100

== ENCOUNTER 2020-11-08 10:51 | Observation (INO) | payer MEDICAID, SELFPAY ==
[2020-11-08 09:36] VITALS: BMI 24.1
[2020-11-08 10:51] VITALS: BP 149/82; PULSE 139; RESP 15; TEMP 36.5; O2SAT 95; BMI 24.6
--- NOTE | 2020-11-08 11:15 | CT_ITS ---
STUDY: CT LUMBAR SPINE WITHOUT CONTRAST REASON FOR EXAM: Female, 60 years old. 5 day history of low back pain following a recent fall. Recent steroid injection. RADIATION DOSAGE (If Supplied By Facility): CTDIvol = ( 15.49 ) mGy, DLP = ( 392.08 ) mGycm TECHNIQUE: The patient was scanned in a multi detector CT scanner. High resolution transaxial imaging was performed.. Images were obtained from L1 to S1 level. Sagittal and coronal images were reconstructed. Individualized dose optimization techniques were used for this CT. COMPARISON: Comparison is made with prior radiographs dated 10/03/2020. FINDINGS: Normal lumbar lordosis. There is no substantial scoliosis. The mineralization of the lumbar vertebrae. L1-2: Approximately 20% loss of height of the superior endplate of the L2 vertebrae. This has progressed as compared to prior study. L2-3: There is evidence of 20-30% loss of height of the superior endplate of the L3 vertebrae. This is new as compared to prior study. L3-4: Normal endplates. Normal disc height and morphology. Normal bilateral facet joints. Normal central canal and bilateral lateral recesses. Normal bilateral intervertebral neural foramina. L4-5: Normal endplates. Normal disc height and morphology. Normal bilateral facet joints. Normal central canal and bilateral lateral recesses. Normal bilateral intervertebral neural foramina. L5-S1: 50% loss of height of the superior endplate of the L5 vertebrae. This has progressed as compared to prior study. Diffuse fatty infiltration of the liver. CT/Spine Lumbar WITH Contrast IMPRESSION: Demineralization of the lumbar vertebrae. Progressive loss of height and wedging of the L2, L3 and L5 vertebrae. Electronically Signed: Pedro Timmons MD at 12:35 EDT , Service support ,
--- NOTE | 2020-11-08 11:17 | EDS_ITS ---
HPI History of Present Illness Chief Complaint: Back Informant: patient Narrative Narrative: 60-year-old female with a prior history of chronic back pain as well as alcoholism presents to the emergency department with increased low back pain. She tells me that is been progressively worsening over the past 5 days. She states that she fell couple days ago. The friend has been helping her get around can no longer stay for her and she does not feel safe to be on her own. She states she has been seeing pain management and had a couple of steroid injections recently. She states her mid back pain is better but the lower back pain is worse. She denies any fevers or rashes. She denies any radicular symptoms. No bowel or bladder dysfunction. She reports that she is supposed to get an MRI soon. She has not done any physical therapy. She saw pain management several days ago was given Ultram and saw them a couple days ago and was given [place]. She states that she needs to probably go to a fci. [facility] Medical History (Updated 11/08/20 @ 13:[address] Edward Mc MD) Arthritis Back pain Diarrhea History of back pain History of neck pain Incontinence Muscle spasm Osteoporosis Risk for falls Scoliosis Home Medications aripiprazole 10 mg PO DAILY 03/05/19 [History Last Taken 05/28/19] denosumab 60 mg SC [id number] 05/28/19 [History Last Taken Unknown] multivitamin with folic acid 1 tab PO DAILYCM 05/28/19 [History Last Taken 05/27/19] buspirone 10 mg tablet 10 mg PO DAILY tab 06/25/19 [History Last Taken Unknown] cholecalciferol (vitamin D3) 2,000 unit PO DAILY 06/10/20 [History Last Taken Unknown] meloxicam 7.5 mg tablet 7.5 mg PO DAILY PRN PRN #30 tab 09/21/20 [Rx Last Taken Unknown] acetaminophen 500 mg tablet 500 mg PO Q6H PRN 11/08/20 [History Last Taken Unknown] hydrocodone-acetaminophen 1 tab PO TID PRN 11/08/20 [History Last Taken Unknown] Allergy/AdvReac Type Severity Reaction Status Date / Time No Known Allergies Allergy Verified 11/08/20 10:53 Family History Other Heart disease Osteoporosis Surgical History History of hip replacement History of tubal ligation Social History Smoking Status: Never smoker Tobacco: How many years used: 2 alcohol intake: current alcohol intake frequency: 3 or more drinks per day Alcohol type: hard liquor substance use type: does not use what type of physical activity do you participate in: none ROS ROS ED Constitutional Constitutional ED: Denies chills or weight loss Eyes Eyes: Denies change in vision or diplopia ENT ENT ED: Denies ear pain, rhinorrhea or sore throat Cardiovascular Cardiovascular: Denies chest pain, orthopnea, palpitations or racing heartbeat Respiratory/Chest Respiratory/Chest: Denies cough, dyspnea or orthopnea Gastrointestinal Gastrointestinal: Denies abdominal pain, diarrhea, nausea or vomiting Genitourinary Genitourinary ED: Denies dysuria, hematuria or urinary frequency Musculoskeletal Musculoskeletal: Reports back pain; Denies arthralgias or myalgias Integumentary Denies abscess or rash Neurologic Neurologic: Denies headache(s) or weakness Psychiatric Psychiatric: Denies anxiety, depression, suicidal ideation or suicidal thoughts Endocrine Endocrinology: Denies polydipsia, polyphagia or polyuria Allergic/Immunologic Allergic/Immunologic ED: Denies mouth swelling, tongue swelling or urticaria EXAM Physical Exam Const Vital Signs: 11/08/20 10:51 Temperature 97.7 F L Temperature Source Temporal Pulse Rate 139 H Respiratory Rate 15 Blood Pressure 149/82 H Blood Pressure Mean 104 Pulse Ox 95 Oxygen Delivery Method Room Air Positive well nourished and well developed General Appearance ED: well developed HEENT Reports normocephalic, head/scalp atraumatic and moist mucous membranes Eyes PERRL and EOMs intact bilaterally Neck no lymphadenopathy, supple and no JVD Resp normal respiratory effort and clear to auscultation bilaterally Cardio regular rate, regular rhythm and no murmurs GI normal to inspection, nondistended, normoactive bowel sounds and non-tender Palpation: soft Back/Spine no CVA tenderness and normal ROM Back/Spine Narrative: Patient has tenderness to palpation over the lower lumbar paraspinal musculature. I do not see any tissue texture changes that would suggest underlying infection. General Back: tenderness; Negative for erythema, warmth or ecchymosis Lumbar Spine / Lower Back: ROM limited and pain with ROM Extremity normal to inspection General Extremety ED: Negative for edema General Extremity: Negative for edema Neuro oriented x3, CN's II-XII intact bilaterally and no sensory deficits noted Sensorium / Orientation: alert Sensory Exam: No sensory level loss detected Motor Exam: strength 5/5 throughout; Negative for strength abnormal Psych mental status grossly normal Mood & Affect: Negative for depressed or tearful Skin no rashes or lesions noted and no wounds MDM MDM MDM Narrative Medical decision making narrative: Basic blood work showed a normal white count. CT of the lumbar spine with IV contrast was obtained which demonstrates progressive loss of height and wedging of the L2-L3 and L5 vertebrae. Patient received pain medication. I had case management speak with the patient as she would like to be in a rehab facility. Her insurance is going to require PT OT evaluation prior to approval for transfer. I will speak with the hospitalist about an observational stay. Lab Data Labs: Laboratory Results - last 24 hr 11/08/20 11/08/20 10:34 10:34 WBC 9.2 RBC 4.41 Hgb 13.7 Hct 40.1 MCV 90.9 MCH 31.1 MCHC 34.2 RDW Std Deviation 44.1 H RDW Coeff of Laxmi 13.3 Plt Count 227 MPV 10.3 Immature Gran % (Auto) 0.700 Neut % (Auto) 78.7 H Lymph % (Auto) 11.4 L [place] % (Auto) 8.8 Eos % (Auto) 0.2 Baso % (Auto) 0.2 Absolute Neuts (auto) 7.2 Absolute Lymphs (auto) 1.04 Nucleated RBC % 0 Sodium 134 L Potassium 4.1 Chloride 96 L Carbon Dioxide 28.0 Anion Gap 10 BUN 22 H Creatinine 0.58 Estim Creat Clear Calc 102.75 Est GFR (MDRD) Af Amer 137 Est GFR (MDRD) Non-Af 113 BUN/Creatinine Ratio 38.2 H Glucose 101 Calcium 9.4 Total Bilirubin 1.00 AST 25 ALT 19 Alkaline Phosphatase 141 H Total Protein 8.1 Albumin 3.5 Globulin 4.6 H Albumin/Globulin Ratio 0.8 L Radiography Diagnostic Testing: Radiology Impression Lumbar Spine CT 11/08/20 11:15 IMPRESSION: Demineralization of the lumbar vertebrae. Progressive loss of height and wedging of the L2, L3 and L5 vertebrae. Electronically Signed: Pedro Timmons MD at 12:35 EDT , Service support , Discharge Plan Dx/Rx/DC Orders Clinical Impression: Intractable low back pain, Lumbar paraspinal muscle spasm Disposition Disposition: Acute Care Hospital [facility]
[2020-11-08] MEDS: diazePAM 5 MG Tablet PO (11:26)
[2020-11-08] MEDS: Ondansetron 4 MG/2 ML Vial IV (11:35)
[2020-11-08] MEDS: Morphine 4 MG/ML Syringe IV (11:36)
[2020-11-08 11:52] LABS: Absolute Lymphocyte Count 1.04 X10^3/uL (0.83-4.51); Absolute Neutrophil Count 7.2 X10^3/uL (2.0-7.7); Basophil# 0.02 X10^3/uL; Basophil% 0.2 % (0-1); Eosinophil# 0.02 X10^3/uL; Eosinophils% 0.2 % (0-5); Hematocrit 40.1 % (37-47); Hemoglobin 13.7 g/dL (12.0-15.0); Lymphocyte # 1.04 X10^3/ul (0.83-4.51); Lymphocyte % 11.4 % (19-41); Mean Corp Hgb Conc 34.2 g/dL (32-36); Mean Corpuscular Hgb 31.1 pg (27.0-32.0); Mean Corpuscular Volume 90.9 fL (81-99); Mean Platelet Vol. 10.3 fl (6.2-12.0); Monocyte# 0.81 X10^3/uL; Monocyte% 8.8 % (0-10); NRBC Flagged by Analyzer 0 % (0-5); Neutrophil # 7.21 X10^3/uL (2.7-7.7); Neutrophil % 78.7 % (47-70); Platelet Count 227 K/mm3 (150-450); RBC Distribution Width CV 13.3 % (11.6-14.6); RBC Distribution Width SD 44.1 fl (35.1-43.9); Red Blood Count 4.41 M/mm3 (4.2-5.4); White Blood Count 9.2 K/mm3 (4.4-11.0)
[2020-11-08 12:05] LABS: ALB/GLOB Ratio 0.8 RATIO (0.9-2.4); AST(SGOT) 25 U/L (15-37); Alanine Aminotransfer ALT/SGPT 19 U/L (13-56); Albumin, Serum 3.5 g/dL (3.2-5.0); Alkaline Phosphatase 141 U/L (45-117); Anion Gap 10 (5-15); BUN 22 mg/dL (7-18); BUN/Creat Ratio 38.2 RATIO (10-20); Calcium,Total 9.4 mg/dL (8.5-10.1); Chloride 96 mmol/L (98-107); Creatinine, Serum 0.58 mg/dL (0.55-1.02); EST Glomerular Filtration Rate 113 mL/min (>60); Est Glom Filt Rate - Afr Amer 137 mL/min (>60); Estimated Creatinine Clearance 102.75 ml/min; Globulin 4.6 g/dL (2.2-4.2); Glucose 101 mg/dL (74-106); Potassium 4.1 mmol/L (3.5-5.1); Protein, Total 8.1 g/dL (6.4-8.2); Sodium Level 134 mmol/L (136-145)
--- NOTE | 2020-11-08 13:15 | NURSING ---
MED SURG ASHELFYANET INTRACTABLE LOW BACK PAIN
--- NOTE | 2020-11-08 13:28 | PCM.HP.STD ---
[facility] Date of Admission: 11/08/20 Chief Complaint: Low back pain. [facility] Narrative PRASHANT MAZARIEGOS, is a 60 F who presented to the emergency department because of back pain. Her symptoms started around 2 to 3 weeks ago with low back pain, in the middle of her lower back, dull aching pain, sometimes goes up to 9 out of 10 in severity especially upon standing or bending forward, improved with rest but did not go away completely, associated with muscle spasm. She mentioned that her pain has been getting worse over the last 5 to 6 days and she has been having difficulties ambulating. She fell couple of times at home because of this back pain. She denied trauma to her back. She denied numbness or tingling. She denied bowel or bladder incontinence. She denied fever or chills. In the last 2 weeks, she was seen by pain management, had epidural steroid injections twice to her back and she has been on Ultram and Vicodin without improvement. She had a friend who has been helping care at home but she mentioned that she has not been able to ambulate because of this pain and her friend has to go home. In the emergency department, her vital signs were stable. Her routine blood work was unremarkable. Lumbar spine CT scan revealed progressive loss of height and wedging of L2-L3 and L5 vertebrae, no acute fractures. She is being admitted for intractable low back pain, frequent falls and debility and probably she will need placement to penitentiary facility. [facility] Medical History (Updated 11/08/20 @ 13:[address] Rachana Styles MD) Arthritis History of back pain History of neck pain Muscle spasm Osteoporosis Risk for falls Scoliosis Home Medications aripiprazole 10 mg PO DAILY 03/05/19 [History Last Taken 05/28/19] denosumab 60 mg SC [id number] 05/28/19 [History Last Taken Unknown] multivitamin with folic acid 1 tab PO DAILYCM 05/28/19 [History Last Taken 05/27/19] buspirone 10 mg tablet 10 mg PO DAILY tab 06/25/19 [History Last Taken Unknown] cholecalciferol (vitamin D3) 2,000 unit PO DAILY 06/10/20 [History Last Taken Unknown] meloxicam 7.5 mg tablet 7.5 mg PO DAILY PRN PRN #30 tab 09/21/20 [Rx Last Taken Unknown] acetaminophen 500 mg tablet 500 mg PO Q6H PRN 11/08/20 [History Last Taken Unknown] hydrocodone-acetaminophen 1 tab PO TID PRN 11/08/20 [History Last Taken Unknown] Allergy/AdvReac Type Severity Reaction Status Date / Time No Known Allergies Allergy Verified 11/08/20 10:53 Family History Other Heart disease Osteoporosis Surgical History History of hip replacement History of tubal ligation Social History (Updated 11/08/20 @ 13:[address] Rachana Styles MD) Smoking Status: Never smoker alcohol intake: former substance use type: does not use what type of physical activity do you participate in: none ROS Constitutional Constitutional: Denies anorexia, chills, fatigue, fever(s) or weakness Eyes Eyes: Denies blurry vision, change in vision, discharge from eye(s), double vision or eye pain ENT HEENT: Denies dysphagia, ear pain, nasal discharge or sore throat Cardiovascular Cardiovascular: Denies chest pain, dyspnea on exertion, edema, palpitations, paroxysmal nocturnal dyspnea or syncope Respiratory/Chest Respiratory/Chest: Denies cough, excessive phlegm production, hemoptysis, productive cough, shortness of breath at rest or wheezing Gastrointestinal Gastrointestinal: Reports constipation; Denies abdominal pain, diarrhea, dyspepsia, nausea or vomiting Genitourinary Genitourinary: Denies burning urination, dysuria, hematuria, urinary frequency or urinary incontinence Musculoskeletal Musculoskeletal: Reports back pain; Denies arthralgias, joint stiffness, myalgias or neck pain Neurologic Neurologic: Denies abnormal gait, confusion, dizziness, headache(s), numbness, paresthesias or seizures Psychiatric Psychiatric: Denies anxiety or depression Endocrine Endocrinology: Denies change in body appearance, heat intolerance, polydipsia or polyuria Hematologic/Lymphatic Hematologic/Lymphatic: Denies easy bleeding or easy bruising Vital Signs Vital Signs Vital Signs: 11/08/20 10:51 Temperature 97.7 F L Temperature Source Temporal Pulse Rate 139 H Respiratory Rate 15 Blood Pressure 149/82 H Blood Pressure Mean 104 Pulse Ox 95 Oxygen Delivery Method Room Air Physical Exam Const alert, oriented x3 and no apparent distress General Appearance: cooperative HEENT normocephalic and head/scalp atraumatic Mouth: oral and palatal mucosa normal and moist mucous membranes abnormal Eyes PERRL, EOMs intact bilaterally and conjunctivae normal Neck no lymphadenopathy, supple and no JVD Resp clear to auscultation bilaterally Auscultation: Negative for crackles, rales, rhonchi or wheezes Cardio regular rate, S1 normal heart sound, S2 normal heart sound and no murmurs Peripheral Pulses: pulses 2+ throughout GI soft to palpation, non-tender and non-distended; Negative for hepatosplenomegaly Extremity full ROM and no clubbing, cyanosis or edema Peripheral Pulses: Yes pulses 2+ throughout Skin no rashes or lesions noted and no wounds Neuro oriented x3 and CN's II-XII intact bilaterally Sensorium / Orientation: awake and alert Motor Exam: strength 5/5 throughout Psych affect normal Appearance: grossly normal and appropriate Lab / Micro Data Result Diagrams: 11/08/20 10:34 11/08/20 10:34 Labs: Laboratory Results - last 24 hr 11/08/20 11/08/20 10:34 10:34 WBC 9.2 RBC 4.41 Hgb 13.7 Hct 40.1 MCV 90.9 MCH 31.1 MCHC 34.2 RDW Std Deviation 44.1 H RDW Coeff of Laxmi 13.3 Plt Count 227 MPV 10.3 Immature Gran % (Auto) 0.700 Neut % (Auto) 78.7 H Lymph % (Auto) 11.4 L [place] % (Auto) 8.8 Eos % (Auto) 0.2 Baso % (Auto) 0.2 Absolute Neuts (auto) 7.2 Absolute Lymphs (auto) 1.04 Nucleated RBC % 0 Sodium 134 L Potassium 4.1 Chloride 96 L Carbon Dioxide 28.0 Anion Gap 10 BUN 22 H Creatinine 0.58 Estim Creat Clear Calc 102.75 Est GFR (MDRD) Af Amer 137 Est GFR (MDRD) Non-Af 113 BUN/Creatinine Ratio 38.2 H Glucose 101 Calcium 9.4 Total Bilirubin 1.00 AST 25 ALT 19 Alkaline Phosphatase 141 H Total Protein 8.1 Albumin 3.5 Globulin 4.6 H Albumin/Globulin Ratio 0.8 L Micro: Microbiology 11/08/20 11:30 SARS-CoV-2 Antigen (Rapid) - Final Nasal Secretion Radiology Impression Lumbar Spine CT 11/08/20 11:15 IMPRESSION: Demineralization of the lumbar vertebrae. Progressive loss of height and wedging of the L2, L3 and L5 vertebrae. Electronically Signed: Pedro Timmons MD at 12:35 EDT , Service support , Assessment & Plan Assessment/Plan (1) Intractable low back pain: Status: Acute Code(s): M54.5 - Low back pain Plan: 1. Acute on chronic intractable low back pain: CT scan of the lumbar spine reviewed as above, no acute fractures. Patient had recent epidural steroid injection twice in the last couple of weeks and she has been on Ultram and Vicodin without improvement. Plan: Admit to MedSurg close observation, gentle IV fluid hydration, Tylenol as needed, OxyIR as needed, IV morphine as needed, start Decadron p.o., Flexeril as needed, PT OT evaluation and treatment, patient may need placement to penitentiary facility. (2) Physical debility: Status: Acute Code(s): R53.81 - Other malaise Plan: 2. Physical debility/functional decline: Patient has been having difficulties ambulating, frequent falls. She lives alone at home. Plan for pain control, PT OT, placement to penitentiary facility. (3) Bipolar disorder: Status: Chronic Code(s): F31.9 - Bipolar disorder, unspecified Plan: Stable, continue aripiprazole and buspirone. (4) Alcoholism: Status: Chronic Code(s): F10.20 - Alcohol dependence, uncomplicated Plan: Patient quit drinking 4 months ago, stable. (5) Chronic back pain: Status: Chronic Code(s): M54.9 - Dorsalgia, unspecified; G89.29 - Other chronic pain Plan: Plan as above. Addt'l Comments This note was generated with BoostSuite[employer] software. It may contain incorrect words, spelling, and punctuation that were not noted in checking the note before signing. OBSV E&M: 59194 Initial observation care L3
[2020-11-08 14:10] VITALS: BP 137/89; PULSE 107; RESP 18; TEMP 36.6; O2SAT 92
[2020-11-08 14:24] VITALS: BMI 24.3
[2020-11-08 14:33] VITALS: BP 142/89; PULSE 116; RESP 18; TEMP 36.6; O2SAT 99
[2020-11-08] MEDS: 0.9% Normal Saline 1,000 ML 75 ML IV (14:45)
[2020-11-08] MEDS: dexAMETHasone 4 MG Tablet PO ×2 (14:53→22:34)
[2020-11-08 15:35] VITALS: O2SAT 97
--- NOTE | 2020-11-08 16:16 | CM.ED ---
Social Work Emergency Department Consult received by Dr. Masterson in the ED. Reason for consult: possible SNF placement, inability to care for self at home Informant: medical record and the patient herself Housing: Lives alone in an apartment, 2 steps to enter. A friend has been staying with the patient this last week to help with patient's care needs, but is unable to continue providing said care. Transportation: Normally still drives, prior to a couple of weeks ago. ADL/IADL completion: prior to a few weeks ago reports was independent with self care. Reports over the last week has required help with getting out of bed, standing up, sitting on the toilet, and walking around the apartment. Has needed help with meal preparation. DME: Denies any DME at home at this time. Medical providers: Dr. Mc for Primary Care, Dr. Romero for pain management, and [facility] for care of emotional health issues. Financial Support: No income, since losing job at the [employer] in February 2018. Has been reliant on friends to help with rent, has relied on stimulus checks and [employer] for rent support. Gets an annuity one time a year, 1400 dollars, but this is set to end after this year. States applied online for disability on 11-07-2020, under the basis of back issues. Reports one time received a lump sum payment for partial disability, years ago, and can't remember the reason. Agency Support: As medical and food assistance through [employer]. Just finished the work program through [facility]. [facility] for psychiatry/medication management. Support system: Has a couple of friends in the area. 2 adult sons who both live out of town. Cody is in [place], but does not speak to the patient. The oldest son, Dallas Lr lives in [place], [place] ([phone]). Advanced directives: none in place. Behavioral Health: History of Bipolar disorder, anxiety, and alcohol use issues. Denies psychiatric hospitalizations in the last 2 years, and no case management. History of treatment for alcohol use issues, but none currently. Reports at this time can take it or leave it with the alcohol. Alcohol of choice is reported as vodka. Reports last drink was 3-4 months ago, and that drinking is not something patient can afford at this time. Current concerns: Reports to feel cannot care for self at home independently, and that intermittent care by [facility] agency will not be enough support at this time. Reports would not feel safe to care for self at this time. Goals is to feel better and return to own apartment. Reports history of [facility] SNF about 3 years ago. Provided patient with list of [facility] SNFs with star quality ratings, as patient prefers to stay in [facility]. Patient conferred with a friend and then provided these choices: [facility], [facility], and [facility] (in that order). Call to Maris at [facility]. There are beds available to consider, and would like referral information faxed when PT/OT notes are available. Plan: Handoff to on acute floors. Likely short term SNF placement. Social work to follow and assist. -RAUL Garcia, BACK WINDER
[2020-11-08] MEDS: Senna/Docusate Sodium 1 Tablet 2 TABLET PO (18:35)
[2020-11-08 22:31] VITALS: BP 124/83; PULSE 92; RESP 18; TEMP 37; O2SAT 93
[2020-11-08] MEDS: cycloBENZAPRine HCl 10 MG Tablet PO (22:46)
[2020-11-08] MEDS: Acetaminophen 325 MG Tablet 650 MG PO (22:52)
[2020-11-09 02:43] VITALS: BP 127/87; PULSE 79; RESP 16; TEMP 36.6; O2SAT 92
[2020-11-09] MEDS: oxyCODONE 5 MG Tablet PO ×3 (03:55→23:00)
[2020-11-09] MEDS: 0.9% Saline Lock 10 ML Syringe IV ×2 (03:57→09:11)
[2020-11-09] MEDS: dexAMETHasone 4 MG Tablet PO ×3 (05:01→22:59)
[2020-11-09] MEDS: Acetaminophen 325 MG Tablet 650 MG PO ×2 (05:09→22:59)
[2020-11-09] MEDS: ARIPiprazole 10 MG Tablet PO (07:48)
[2020-11-09] MEDS: Enoxaparin 40 MG/0.4 ML Syringe SC (07:48)
[2020-11-09] MEDS: busPIRone 5 MG Tablet 10 MG PO (07:48)
[2020-11-09] MEDS: cycloBENZAPRine HCl 10 MG Tablet PO (07:50)
[2020-11-09 07:56] VITALS: O2SAT 95
[2020-11-09 08:23] VITALS: BP 137/78; PULSE 75; RESP 16; TEMP 37; O2SAT 95
--- NOTE | 2020-11-09 08:23 | MRI_ITS ---
STUDY: MRI LUMBAR SPINE WITHOUT CONTRAST REASON FOR EXAM: Female, 60 years old. back pain TECHNIQUE: Standardized fat and water weighted pulse sequences were obtained in the sagittal and axial planes. COMPARISON: CT 11/08/2020, x-ray 10/03/2020 FINDINGS: T12-L1: Normal endplates. Normal disc height, hydration and morphology. Normal bilateral facet joints. Normal central canal and bilateral lateral recesses. Normal bilateral intervertebral neural foramina. Normal lumbar lordosis. There is no substantial scoliosis. Normal conus medullaris that terminates at the L1. Mild loss of height wedging deformity of the L2 vertebral body without marrow edema consistent with a the chronic mild compression fracture. No retropulsion into the spinal canal. There is concavity of the superior endplates with marrow edema of the L3, L4, and L5 vertebral bodies consistent with acute mild compression fractures. No retropulsion into the spinal canal. L1-2: Some focal kyphosis and a mild bilobed disc protrusion produces mild spinal stenosis but no neural foraminal stenosis. L2-3: Normal endplates. Normal disc height, hydration and morphology. Normal bilateral facet joints. Normal central canal and bilateral lateral recesses. Normal bilateral intervertebral neural foramina. L3-4: Normal endplates. Normal disc height, hydration and morphology. Normal bilateral facet joints. Normal central canal and bilateral lateral recesses. Normal bilateral intervertebral neural foramina. L4-5: Normal endplates. Normal disc height, hydration and morphology. Normal bilateral facet joints. Normal central canal and bilateral lateral recesses. Normal bilateral intervertebral neural foramina. L5-S1: Small central disc protrusion produces mild spinal stenosis but no neural foraminal stenosis. Normal visualized sacral ala. Normal visualized paraspinous soft tissue structures. MRI/Spine Lumbar (Routine) IMPRESSION: Acute mild compression fractures of L3, L4, and L5 with minimal loss of height but concavity the superior endplates. No retropulsion into the spinal canal. No severe spinal stenosis or neural foraminal stenosis per Electronically Signed: Juan Mazariegos MD at 11:29 EDT Tel , Service support ,
[2020-11-09 08:54] LABS: Vitamin D,25 Hydroxy 30.8 ng/mL
[2020-11-09] MEDS: Morphine 2 MG/ML Syringe IV (09:10)
--- NOTE | 2020-11-09 12:02 | CASEMGMT ---
Addendum entered by Shadia Fields 11/09/20 15:37: VIJAY faxed PT/OT to [facility]. Original Note: Social Work Note VIJAY faxed referral to [facility]. VIJAY placed a call to Paula at [facility] and left message regarding referral. Plan: [facility] pending acceptance and pre-cert Shadia Fields BUSINESS OPERATIONS MANAGER, POTATO CHIP COOKER MACHINE
--- NOTE | 2020-11-09 13:38 | PCM.PN.HOSP ---
Subjective Subjective: Has had worsening low back pain for the past week and had a friend helping her navigate at home but her friend had to go back to their home which was out of town. Patient did have a fall while her friend was there but she stated her back pain quality did not change afterwards. She denied any falls more recently. Patient did suffer vertebral fractures in her thoracic spine related with picking up boxes several years ago. Patient has been on Prolia for the past year for osteoporosis. Objective Data Objective Data Vital Signs: Vital Signs Temp Pulse Resp BP Pulse Ox 37.0 C 75 16 137/78 H 95 11/09/20 08:23 11/09/20 08:23 11/09/20 08:23 11/09/20 08:23 11/09/20 08:23 Oxygen Delivery Method Room Air Weight: 69.853 kg Body Mass Index (BMI) 24.3 Intake & Output: Intake and Output for Last 24 Hours 11/07/20 11/08/20 11/09/20 23:59 23:59 23:59 Intake Total 1450 / 1450 Output Total 450 / 450 Balance 1000 / 1000 Lab / Micro Data Result Diagrams: 11/08/20 10:34 11/08/20 10:34 Labs: Laboratory Results - last 24 hr 11/09/20 08:04 Vitamin D 25-Hydroxy 30.8 Micro: Microbiology 11/08/20 11:30 Nasal Secretion SARS-CoV-2 Antigen (Rapid) - Final Radiography Diagnostic Testing: Radiology Impression Lumbar Spine MRI 11/09/20 08:23 IMPRESSION: Acute mild compression fractures of L3, L4, and L5 with minimal loss of height but concavity the superior endplates. No retropulsion into the spinal canal. No severe spinal stenosis or neural foraminal stenosis per Electronically Signed: Juan Mazariegos MD at 11:29 EDT Tel , Service support , Physical Exam Const alert and no apparent distress Resp normal respiratory effort and clear to auscultation bilaterally Cardio regular rate, regular rhythm, S1 normal heart sound and S2 normal heart sound GI normal to inspection, nondistended, normoactive bowel sounds, soft to palpation, non-tender and non-distended Extremity normal to inspection Neuro no sensory deficits noted Neuro Narrative: no clonus. Psych affect normal Assessment & Plan Assessment/Plan (1) Vertebral compression fracture: Status: Acute Code(s): M48.50XA - Collapsed vertebra, not elsewhere classified, site unspecified, initial encounter for fracture Qualifiers: Encounter type: initial encounter Fracture of vertebra location: lumbar Lumbar vertebra fracture level: L5 Qualified Code(s): S32.050A - Wedge compression fracture of fifth lumbar vertebra, initial encounter for closed fracture Plan: Reviewed images with the patient and patient has multiple vertebral compression fractures in the lumbar region. Informed her that it is unclear if this is new or old but not seen on the x-ray but may have been present just not clearly identified on the x-ray previously. Explained to her that better evaluate her spine is to do an MRI to see if she has an acute process and if so if this would be amenable to kyphoplasty. Will consult pain management for further recommendations and to see if this would be amenable to kyphoplasty. Greater than 35 minutes of which greater than 50% of time was discussing with the patient about her vertebral fractures, reviewing the actual images with her and recommend ideations for further evaluation and potential treatment. (2) Venous thromboembolism (VTE) prophylaxis provided within 24 hours of arrival: Status: Acute Plan: LMWH (3) Osteoporosis: Status: Acute Code(s): M81.0 - Age-related osteoporosis without current pathological fracture Qualifiers: Osteoporosis type: unspecified Presence of current pathological fracture: unspecified Qualified Code(s): M81.0 - Age-related osteoporosis without current pathological fracture Plan: Patient is on Prolia and has been receiving her twice yearly injection. She was inquiring if that was a likelihood of her fracture. Explained that patient has had fractures before before she started on Prolia and was unlikely to be contributing to it. Upon further review can cause pain but not necessarily increased risk of fracture. 25-hydroxy vitamin D level is 30.8. Goal is for level of around 50. Patient is on cholecalciferol 2000 units daily. We will change her over to ergocalciferol 50,000 units weekly. Also check PTH OBSV E&M: 38510 Subsequent observation care L3
[2020-11-09 14:22] VITALS: BP 102/62; PULSE 104; RESP 16; TEMP 36.7; O2SAT 93
[2020-11-09 14:25] LABS: PTHIN 20.7 pg/mL (18.4-80.1)
[2020-11-09 22:50] VITALS: BP 128/78; PULSE 96; RESP 16; TEMP 36.5; O2SAT 93
[2020-11-09] MEDS: Zolpidem Tartrate 5 MG Tablet PO (23:00)
[2020-11-10] VITALS (11 sets, daily range): BP systolic 99–150; BP diastolic 64–99; PULSE 72–95; RESP 14–16; TEMP 36.4–37.8; O2SAT 92–95; BMI 24.1
--- NOTE | 2020-11-10 | IMM_PTH ---
PATIENT: PRASHANT MAZARIEGOS LOC: MS3 U#:[id number] AGE/SX: 60/F ROOM: MS311 RE11/08/[address]: Dr. Nader Royal DO : 1960 BED: 1 DIS: 11/11/2020 SPEC #: [id number] RECD: 11/14/20 11:51 STATUS: SOUT REQ #: [id number] FAISAL: 11/10/20 00:[address]: Aletha Romero DEPT: IMMUNOHISTOCHEMISTRY RECD BY: Amber Lawrence ENTERED: 11/14/20 11:52 SP TYPE: IMMUNO OTHR DR: DO Dr. Edward Ahmadi MD Dr. Ghasem E Ashelfah, MD Tissues: Vertebra, NOS Procedures: CD20 (add) CD45 (add) CD5 (add) CD79A (add) CD3 (initial) PHYSICIAN & INSTITUTION [place] [address] SPECIMEN INFORMATION: Tissue Source: Bone biopsy, kyphoplasty Clinical Info: Compression fracture Specimen Number: [id number] CPT code: 21926, 82268 x4 METHODOLOGY: Deparaffinized sections of prefer/formalin-fixed tissue or PAP/DQ stained slides are incubated with monoclonal/polyclonal antibodies/oligonucleotide probes. Localization is made via biotin free immunoperoxidase method. Appropriate controls are performed and reacted as expected. Results on target cell population are indicated in the following table: RESULTS: ANTIBODY / CLONE RESULT CD3 (PS1) positive CD5 (SP10) positive CD20 (L26) positive CD79a (11E3) positive CD45 (RP2/18) positive These tests were developed and their performance characteristics determined by [facility]. They may not have been cleared or approved by the U.S. Food and Drug Administration. The FDA has determined that such clearance or approval is not necessary. The above immunohistochemical/dualISH markers are ordered and reviewed by the Pathologist. INTERPRETATION: Bone biopsy, kyphoplasty: Lymphoid aggregates and interstitial infiltrates of small lymphocytes are noted, polytypic in nature, favor benign. KARLA:vicente 11/15/2020
[2020-11-10] MEDS: 0.9% Saline Lock 10 ML Syringe IV (02:54)
--- NOTE | 2020-11-10 06:00 | EKG12_ITS ---
Test Reason : PRE-OP Blood Pressure : / mmHG Vent. Rate : 080 BPM Atrial Rate : 080 BPM P-R Int : 130 ms QRS Dur : 076 ms QT Int : 398 ms P-R-T Axes : 024 032 003 degrees QTc Int : 459 ms Normal sinus rhythm Nonspecific T wave abnormality Abnormal ECG Confirmed by SOPHIA THOMAS, MARY ALICE ([id number]), features editor EDITH QUINTERO ([id number]) on 11/13/2020 12:30:59 PM Referred By: ADALID Confirmed By:MARY ALICE CORTES MD
[2020-11-10] MEDS: dexAMETHasone 4 MG Tablet PO ×2 (06:33→21:12)
[2020-11-10] MEDS: oxyCODONE 5 MG Tablet PO ×2 (06:34→16:51)
--- NOTE | 2020-11-10 10:56 | CASEMGMT ---
Social Work Note VIJAY received message from Paula at [facility] stating they are able to accept pt and will submit for pre-cert. SW in to speak with pt. SW introduced self and role at [facility]. SW updated pt that [facility] is able to accept pt pending pre-cert. Pt states understanding. Plan: [facility] pending pre-cert Shadia Fields MANAGER RESOURCE, RAISER HELPER
--- NOTE | 2020-11-10 11:20 | NURSING ---
off unit via bed at 1100
--- NOTE | 2020-11-10 14:21 | CASEMGMT ---
Social Work Note VIJAY placed a call to Paula at [facility] to inquire about pre-cert. Lipan states pre-cert has been obtained, pt can discharge today. VIJAY spoke with RN, pt is having surgery (Kyphoplasty today). Pt will likely be able to discharge tomorrow. VIJAY placed a call to Paula at [facility] and left message inquiring how long pt's pre-cert is good for. VIJAY waiting for call back. VIJAY completed PAS/RR in [facility]. Shadia Fields ELEMENTARY TEACHER, SLIP BOX CHANGER
--- NOTE | 2020-11-10 14:37 | PCM.PN.HOSP ---
Subjective Subjective: back feeling better. Objective Data Objective Data Vital Signs: Vital Signs Temp Pulse Resp BP Pulse Ox 36.6 C 72 14 123/89 H 94 11/10/20 14:00 11/10/20 14:00 11/10/20 14:00 11/10/20 14:00 11/10/20 14:00 Oxygen Delivery Method Room Air Weight: 69.853 kg Body Mass Index (BMI) 24.1 Intake & Output: Intake and Output for Last 24 Hours 11/08/20 11/09/20 11/10/20 23:59 23:59 23:59 Intake Total 2049 / 2049 600 / 600 Output Total 450 / 450 900 / 900 Balance 1600 / 1600 -300 / -300 Lab / Micro Data Result Diagrams: 11/08/20 10:34 11/08/20 10:34 Micro: Microbiology 11/08/20 11:30 Nasal Secretion SARS-CoV-2 Antigen (Rapid) - Final Physical Exam Const alert HEENT Head and Scalp: normocephalic Resp normal respiratory effort, no retractions and no use of accessory muscles Cardio regular rate, regular rhythm, S1 normal heart sound and S2 normal heart sound Assessment & Plan Assessment/Plan (1) Vertebral compression fracture: Status: Acute Code(s): M48.50XA - Collapsed vertebra, not elsewhere classified, site unspecified, initial encounter for fracture Qualifiers: Encounter type: initial encounter Fracture of vertebra location: lumbar Lumbar vertebra fracture level: L5 Qualified Code(s): S32.050A - Wedge compression fracture of fifth lumbar vertebra, initial encounter for closed fracture Plan: Reviewed images with the patient and patient has multiple vertebral compression fractures in the lumbar region. Informed her that it is unclear if this is new or old but not seen on the x-ray but may have been present just not clearly identified on the x-ray previously. MRI showed acute compression fracture of L3, L4 and L5 Kyphplasty for today. (2) Osteoporosis: Status: Acute Code(s): M81.0 - Age-related osteoporosis without current pathological fracture Qualifiers: Osteoporosis type: unspecified Presence of current pathological fracture: unspecified Qualified Code(s): M81.0 - Age-related osteoporosis without current pathological fracture Plan: Patient is on Prolia and has been receiving her twice yearly injection. She was inquiring if that was a likelihood of her fracture. Explained that patient has had fractures before before she started on Prolia and was unlikely to be contributing to it. Upon further review can cause pain but not necessarily increased risk of fracture. 25-hydroxy vitamin D level is 30.8. Goal is for level of around 50. Patient is on cholecalciferol 2000 units daily. We will change her over to ergocalciferol 50,000 units weekly. PTH 20.7, WNL (3) Debility: Status: Acute Code(s): R53.81 - Other malaise Plan: SNF upon discharge (4) Venous thromboembolism (VTE) prophylaxis provided within 24 hours of arrival: Status: Acute Plan: LMWH Visit Charges Inpatient E&M: 62119 Subs Hosp L2
--- NOTE | 2020-11-10 14:42 | RAD_ITS ---
STUDY: X-RAY - LUMBAR SPINE REASON FOR EXAM: Female, 60 years old. KYPHOPLASTY TECHNIQUE: 1 view(s) of the lumbar spine were obtained. COMPARISON: None FINDINGS: Fluoroscopy of the lumbar spine was utilized and operating room during vertebroplasty and 6 images are somewhat limited for interpretation.. RAD/Spine 1 View Any Level IMPRESSION: Fluoroscopy during vertebroplasty. Electronically Signed: Juan Mazariegos MD at 6:45 EDT Tel , Service support ,
--- NOTE | 2020-11-10 15:00 | BONBX_PTH ---
PATIENT: PRASHANT MAZARIEGOS LOC: MS3 U#:[id number] AGE/SX: 60/F ROOM: MS311 RE11/08/[address]: Dr. Nader Royal DO : 1960 BED: 1 DIS: 11/11/2020 SPEC #: [id number] RECD: 11/13/20 06:49 STATUS: GIOVANNA REMalcolm #: [id number] FAISAL: 11/10/20 15:[address]: Aletha Romero DEPT: SURGICAL PATHOLOGY RECD BY: Mary Ann Staples ENTERED: 11/13/20 08:04 SP TYPE: Bone OTHR DR: MD Dr. Nader Ivy DO Dr. Efewongbe Oleghe, MD Dr. Ghasem E Ashelfah, MD Tissues: Vertebra, NOS Procedures: Decalcification bone/plaque Surgery Specimen Level V Comments: @ Ordering doctor for DEC edited from to @ by MATILDE at 11/13/20 0944 @ Ordering doctor for SUV edited from to @ by MATILDE at 11/13/20 0944 @ Submitting doctor edited from to @ by MATILDE at 11/13/20 0944 HEADER OPERATION: Kyphoplasty PRE-OP DIAGNOSIS: Compression fracture TISSUE SUBMITTED: Bone biopsy MICROSCOPIC DIAGNOSIS Bone biopsy, kyphoplasty: Pieces of bone with reactive changes, clinically compression fracture. Negative for malignancy. See comment. SJ:vicente 11/14/2020 COMMENT Hematopoietic marrow with trilineage hematopoiesis is noted. Interstitial infiltrates of small lymphocytes and lymphoid aggregates are also noted, polytypic in nature, favor benign. Immunohistochemistry ([id number]) supports the above diagnosis. MICROSCOPIC DESCRIPTION Slides are reviewed. GROSS DESCRIPTION Received in fixative is one container labeled with the patient's name and designated bone biopsy. The specimen consists of multiple fragments of elliott bone that in aggregate measure 0.5 x 0.3 x 0.1 cm. The specimen is totally submitted in one cassette after decalcification. / KARLA:vicente 11/13/20 TC:5 CPT: 29810, 81530
[2020-11-10] MEDS: Bupivacaine Mpf 0.5% 30 ML VIAL (15:04)
[2020-11-10] MEDS: busPIRone 5 MG Tablet 10 MG PO (16:52)
[2020-11-10] MEDS: ARIPiprazole 10 MG Tablet PO (16:52)
--- NOTE | 2020-11-10 17:26 | CASEMGMT ---
Addendum entered by Shadia Fields 11/10/20 17:50: VIJAY placed another call to [place] at [facility]. [place] states pt's pre-cert is good for 7 days. Pt can discharge to [facility] Friday or Friday. VIJAY placed a call to Charge Nurse and updated RN. VIJAY placed updated Green sheet on pt's chart. Plan: W when medically ready. Pt will still need COVID test on day of discharge. Original Note: Social Work Note VIJAY placed multiple phone calls to Paula at [facility] to inquire how long pt's pre-cert is good for. VIJAY hasn't received call back from [place]. Pre-cert should still be good for tomorrow, not sure about Friday. VIJAY placed another call to [place] at [facility] and left message asking [place] to call Rommel LINARES with answer to how long pt's pre-cert is good for as Rommel will be at [facility] late tonight and will be at [facility] tomorrow. VIJAY completed PAS/RR in HENS. VIJAY placed Green sheet, transport forms, HENS. and COVID tool on pt's chart. VIJAY wrote on Green sheet to check with Rommel LINARES for update on pre-cert. VIJAY also wrote on Green sheet that pt will need COVID test on day of discharge. Plan: [facility], likely Friday. Pre-cert was obtained today, will likely be good for Friday. Shadia Fields FIRE PREVENTION CHIEF, IRONING MACHINE OPERATOR
[2020-11-11 02:45] VITALS: BP 116/84; PULSE 77; RESP 14; TEMP 36.7; O2SAT 93
[2020-11-11] MEDS: dexAMETHasone 4 MG Tablet PO (05:31)
[2020-11-11 08:45] VITALS: BP 122/81; PULSE 93; RESP 18; TEMP 36.7; O2SAT 94
--- NOTE | 2020-11-11 09:27 | TREXTCAR_ITS ---
Diet 11/10/20 16:44 Diet: Regular - General Is pt able to select menu?: Yes Wound(s) BACK: Wound Type: punctures x3 Problem/Diagnosis (1) Vertebral compression fracture: Status: Acute (2) Osteoporosis: Status: Acute (3) Debility: Status: Acute (4) Venous thromboembolism (VTE) prophylaxis provided within 24 hours of arrival: Status: Acute (5) Compression fracture of thoracic spine, non-traumatic: Status: Chronic Allergies/Procedures Done in Hospital Allergies No Known Allergies Allergy (Verified 11/08/20 10:53) Type of Care/Length of Stay Estimated LOS: Convalescent Care Less Than 30 days Type of Care Needed: Skilled Rehab Potential: Good Prognosis: Good Additional Orders/Day of Discharge Day of Discharge: 11/11/20 Discharge Plan Admission Admit Date/Time: 11/08/20 13:25 Attending Provider: Nader Royal Primary Care Provider: Edward Mc Consulting Providers: Aletha Romero Discharge Orders/Prescriptions Prescriptions: New ergocalciferol (vitamin D2) [Vitamin D2] 1,250 mcg (50,000 unit) Capsule 50,000 unit PO Q7D@1000 Qty: 0 RF: 0 oxycodone 5 mg Tablet 5 mg PO Q6H PRN (Reason: Pain Score 4-10) 3 Days Qty: 12 RF: 0 Continued buspirone 10 mg tablet 10 mg PO DAILY RF: 0 acetaminophen [Tylenol Extra Strength] 500 mg tablet 1,000 mg PO Q6H PRN (Reason: Pain) RF: 0 aripiprazole 10 MG tablet 10 mg PO DAILY RF: 0 denosumab 60 MG/ML syringe 60 mg SC [id number] RF: 0 multivitamin with folic acid 1 TABLET tablet 1 tab PO DAILYCM RF: 0 meloxicam 7.5 mg tablet 7.5 mg PO DAILY PRN PRN (Reason: BACK PAIN) Qty: 30 RF: 1 Discontinued cholecalciferol (vitamin D3) 2,000 UNIT capsule 2,000 unit PO DAILY RF: 0 hydrocodone-acetaminophen 5-325 mg tablet 1 tab PO TID PRN (Reason: Pain) RF: 0 Referrals: Aletha Romero MD [STAFF PHYSICIAN] - Within 2 Weeks Edward Mc MD [Primary Care Provider] - Within 2 Weeks Disposition [facility] Disposition[facility]
--- NOTE | 2020-11-11 09:33 | DS.PCM_ITS ---
Providers Date of Admission: 11/08/20 Primary Care Physician: Dr. Edward Mc MD Consultations 11/09/20 07:11 Consult: Pain Management Routine Consulting Provider: Aletha Romero Reason for Consult: back pain. compression fractures EMERGENT Consult: No MD Notified: Yes Date Notified:: 11/09/20 Time Notified: 07:12 Method of Notification: office Reason For Visit: INTRACTABLE LOW BACK PAIN Diagnosis Discharge Diagnosis (1) Vertebral compression fracture: Status: Acute Code(s): M48.50XA - Collapsed vertebra, not elsewhere classified, site unspecified, initial encounter for fracture Qualifiers: Encounter type: initial encounter Fracture of vertebra location: lumbar Lumbar vertebra fracture level: L5 Qualified Code(s): S32.050A - Wedge annalee marlen fracture of fifth lumbar vertebra, initial encounter for closed fracture (2) Osteoporosis: Status: Acute Code(s): M81.0 - Age-related osteoporosis without current pathological fracture Qualifiers: Osteoporosis type: unspecified Presence of current pathological fracture: unspecified Qualified Code(s): M81.0 - Age-related osteoporosis without current pathological fracture (3) Debility: Status: Acute Code(s): R53.81 - Other malaise (4) Venous thromboembolism (VTE) prophylaxis provided within 24 hours of arrival: Status: Acute (5) Compression fracture of thoracic spine, non-traumatic: Status: Chronic Code(s): M48.54XA - Collapsed vertebra, not elsewhere classified, thoracic region, initial encounter for fracture Qualifiers: Encounter type: initial encounter Thoracic vertebra fracture level: T7 Qualified Code(s): M48.54XA - Collapsed vertebra, not elsewhere classified, thoracic region, initial encounter for fracture Medications at Discharge Home Medications aripiprazole 10 mg PO DAILY 03/05/19 denosumab 60 mg SC [id number] 05/28/19 multivitamin with folic acid 1 tab PO DAILYCM 05/28/19 buspirone 10 mg tablet 10 mg PO DAILY tab 06/25/19 meloxicam 7.5 mg tablet 7.5 mg PO DAILY PRN PRN #30 tab 09/21/20 acetaminophen 500 mg tablet 1,000 mg PO Q6H PRN 11/08/20 ergocalciferol (vitamin D2) [Vitamin D2] 50,000 unit PO Q7D@1000 #0 cap 11/11/20 oxycodone 5 mg PO Q6H PRN 3 Days #12 tab 11/11/20 Hospital Course Operations - (kyphlasty) Summary of Care Provided Minutes Spent on Discharge: 35 Hospital Course: Presents with back pain and debility. Symptoms began 1 week prior to arrival. Patient was having difficulty getting around and had a friend help her at home but her friend had to go back to their home and she presented to the emergency room. Patient had an x-ray that showed multiple level fractures and CAT scan showed that as well. Patient underwent an MRI that showed acute mild compression fractures of L3-L4 and 5. Patient was seen by pain management who performed a kyphoplasty on the . Patient overall feels better but has not been able to walk around. So the plan is for patient to go to halfway facility at [facility] in stable condition. Patient did have a 25 hydroxy vitamin D level that was 30. Goal is 50 so patient's cholecalciferol be held and patient will be using ergocalciferol 50,000 units weekly for a total of 8 weeks. Afterwards, her vitamin D level will need to be rechecked's see if she would still require higher dosing of vitamin D replacement or if she can resume her previous cholecalciferol dosing. Physical Exam Const alert General Appearance: cooperative Skin Skin Narrative: Low back injection sites were covered with some gauze and did have some dried blood on the right side. No hematoma no was identified. Neuro Sensorium / Orientation: awake and alert ABG / Lab / Microbiology Data Result Diagrams: 11/08/20 10:34 11/08/20 10:34 Microbiology: Microbiology 11/08/20 11:30 Nasal Secretion SARS-CoV-2 Antigen (Rapid) - Final Radiography Diagnostic Testing: Radiology Impression Spine X-Ray 11/10/20 14:42 IMPRESSION: Fluoroscopy during vertebroplasty. Electronically Signed: Juan Mazariegos MD at 6:45 EDT Tel , Service support , D/C Instructions Discharge Diet: No restrictions Meaningful Use Info Meaningful Use Diagnoses (Choose all that apply): None applicable Discharge Plan Admission Admit Date/Time: 11/08/20 13:25 Attending Provider: Nader Royal Primary Care Provider: Edward Mc Consulting Providers: Aletha Romero Discharge Orders/Prescriptions Prescriptions: New ergocalciferol (vitamin D2) [Vitamin D2] 1,250 mcg (50,000 unit) Capsule 50,000 unit PO Q7D@1000 Qty: 0 RF: 0 oxycodone 5 mg Tablet 5 mg PO Q6H PRN (Reason: Pain Score 4-10) 3 Days Qty: 12 RF: 0 Continued buspirone 10 mg tablet 10 mg PO DAILY RF: 0 acetaminophen [Tylenol Extra Strength] 500 mg tablet 1,000 mg PO Q6H PRN (Reason: Pain) RF: 0 aripiprazole 10 MG tablet 10 mg PO DAILY RF: 0 denosumab 60 MG/ML syringe 60 mg SC [id number] RF: 0 multivitamin with folic acid 1 TABLET tablet 1 tab PO DAILYCM RF: 0 meloxicam 7.5 mg tablet 7.5 mg PO DAILY PRN PRN (Reason: BACK PAIN) Qty: 30 RF: 1 Discontinued cholecalciferol (vitamin D3) 2,000 UNIT capsule 2,000 unit PO DAILY RF: 0 hydrocodone-acetaminophen 5-325 mg tablet 1 tab PO TID PRN (Reason: Pain) RF: 0 Referrals: Aletha Romero MD [STAFF PHYSICIAN] - Within 2 Weeks Edward Mc MD [Primary Care Provider] - Within 2 Weeks Disposition Patient Disposition: Intermediate Facility Visit Charges Inpatient E&M: 28378 Disch Hosp
[2020-11-11] MEDS: Acetaminophen 325 MG Tablet 650 MG PO (09:54)
[2020-11-11] MEDS: oxyCODONE 5 MG Tablet PO (09:54)
[2020-11-11] MEDS: Enoxaparin 40 MG/0.4 ML Syringe SC (09:55)
[2020-11-11] MEDS: busPIRone 5 MG Tablet 10 MG PO (09:55)
[2020-11-11] MEDS: ARIPiprazole 10 MG Tablet PO (09:55)
--- NOTE | 2020-11-11 12:33 | NURSING ---
transport arrange w/ [facility] for transport to [facility], [facility] for [phone]
== END 2020-11-11 13:56 | disposition skilled nursing facility (03) ==
LOC: ED 13:02 → MS3 13:34
PROVIDERS: Anesthesiology Pain Medicine; Admitting Provider Hospitalist; Emergency Provider Emergency Medicine; PCP Internal Medicine
PROC: (CPT 22514; principal; 2020-11-10 14:45)
DX: M48.56XA Collapsed vertebra, not elsewhere classified, lumbar region, initial encounter for fracture (principal); M48.54XA Collapsed vertebra, not elsewhere classified, thoracic region, initial encounter for fracture; W19.XXXA Unspecified fall, initial encounter; Y93.9 Activity, unspecified; Y92.9 Unspecified place or not applicable; Y99.9 Unspecified external cause status; G89.29 Other chronic pain; M19.90 Unspecified osteoarthritis, unspecified site; M41.9 Scoliosis, unspecified; F31.9 Bipolar disorder, unspecified; F10.21 Alcohol dependence, in remission; Z79.899 Other long term (current) drug therapy
CPT/HCPCS: 01936; 22514; 36415; 72020; 72132; 72148; 76000; 80053; 82306; 83970; 85025; 87426; 88307; 88311; 88341; 88342; 93005; 96361; 96372; 96374; 96375; 96376; 97161; 97166; 97535; 99218; 99251; 99284; J7030; Q9967; A4216; G0378; G0463; J2405

== ENCOUNTER 2020-12-11 17:19 | Observation (INO) | payer MEDICAID, SELFPAY ==
[2020-12-07 14:38] VITALS: BMI 24.1
[2020-12-11 17:21] VITALS: BP 149/86; PULSE 123; RESP 18; TEMP 37.6; O2SAT 93; BMI 24.0
--- NOTE | 2020-12-11 17:33 | ED.VIS.BACK ---
HPI History of Present Illness Chief Complaint: Back Narrative Narrative: 60-year-old female presenting with back pain. She states she has history of compression fracture which she states is in her lumbar spine. She had kyphoplasty performed and states that it was Dr. Goldstein he did this. She is on Percocet twice daily. Patient states she was previously on [place] until Friday and thought she was doing okay and now she has pain that is worsening. She states that he has difficulty ambulating but she is able to ambulate. She has no paresthesias. Denies other symptoms at this time. PFSH PFS Medical History Alcohol use Arthritis Change in bowel habit Compression fracture Depression History of back pain History of neck pain Muscle spasm Osteoporosis Risk for falls Scoliosis Home Medications aripiprazole 10 mg PO DAILY 03/05/19 [History Last Taken 11/07/20] denosumab 60 mg SC [id number] 05/28/19 [History Last Taken Unknown] multivitamin with folic acid 1 tab PO DAILYCM 05/28/19 [History Last Taken 11/07/20] buspirone 10 mg tablet 10 mg PO DAILY tab 06/25/19 [History Last Taken 11/07/20] acetaminophen 500 mg tablet 1,000 mg PO Q6H PRN 11/08/20 [History Last Taken 11/08/20 06:00] Lift Chair #1 ea 12/08/20 [Rx Last Taken Unknown] cholecalciferol (vitamin D3) [Vitamin D3] 25 mcg PO DAILY 12/11/20 [History Last Taken Unknown] oxycodone 5 mg PO BID PRN 12/11/20 [History Last Taken Unknown] Allergy/AdvReac Type Severity Reaction Status Date / Time No Known Allergies Allergy Verified 12/11/20 17:21 Family History Other Heart disease Osteoporosis Surgical History History of hip replacement History of tubal ligation S/P kyphoplasty Social History Smoking Status: Never smoker alcohol intake: former substance use type: does not use what type of physical activity do you participate in: none ROS ROS ED Constitutional Constitutional ED: Denies chills, fever(s) or sweats Eyes Eyes: Denies blurry vision or change in vision ENT ENT ED: Denies ear pain, rhinorrhea or sore throat Cardiovascular Cardiovascular: Denies chest pain, palpitations or racing heartbeat Respiratory/Chest Respiratory/Chest: Denies cough, dyspnea or sputum Gastrointestinal Gastrointestinal: Denies abdominal pain, constipation, diarrhea or vomiting Genitourinary Genitourinary ED: Denies dysuria, hematuria or urinary frequency Musculoskeletal Musculoskeletal: Reports back pain; Denies arthralgias, myalgias or neck pain Integumentary Denies abscess, Abrasions or rash Neurologic Neurologic: Denies headache(s), paresthesias or weakness Psychiatric Psychiatric: Denies anxiety, depression, suicidal ideation or suicidal thoughts Endocrine Endocrinology: Denies polydipsia or polyuria EXAM Physical Exam Const Vital Signs: 12/11/20 17:21 Temperature 99.7 F H Temperature Source Temporal Pulse Rate 123 H Respiratory Rate 18 Blood Pressure 149/86 H Blood Pressure Mean 107 Pulse Ox 93 Oxygen Delivery Method Room Air Positive well nourished General Appearance ED: NAD HEENT Reports moist mucous membranes trauma Eyes PERRL and EOMs intact bilaterally Resp normal respiratory effort and clear to auscultation bilaterally Cardio regular rate and regular rhythm Back/Spine Thoracic Spine / Upper Back: ROM limited, pain with ROM and thoracic spinal tenderness Lumbar Spine / Lower Back: ROM limited, pain with ROM and lumbar spinal tenderness Extremity normal to inspection General Extremety ED: Negative for edema or tenderness General Extremity: Negative for edema Neuro oriented x3 Sensorium / Orientation: alert Psych mental status grossly normal Skin no rashes or lesions noted and no wounds Discharge Plan Triage Chief Complaint: Back ED Provider: Darwin English Dx/Rx/DC Orders Prescriptions: No Action buspirone 10 mg tablet 10 mg PO DAILY RF: 0 acetaminophen [Tylenol Extra Strength] 500 mg tablet 1,000 mg PO Q6H PRN (Reason: Pain) RF: 0 aripiprazole 10 MG tablet 10 mg PO DAILY RF: 0 denosumab 60 MG/ML syringe 60 mg SC [id number] RF: 0 multivitamin with folic acid 1 TABLET tablet 1 tab PO DAILYCM RF: 0 cholecalciferol (vitamin D3) [Vitamin D3] 25 mcg (1,000 unit) Capsule 25 mcg PO DAILY RF: 0 oxycodone 5 mg tablet 5 mg PO BID PRN (Reason: Pain) RF: 0 (DME) Lift Chair See Rx Instructions .Route .MEDSUPPLY Qty: 1 RF: 0 Primary Care Provider: Edward Mc
--- NOTE | 2020-12-11 17:57 | RAD_ITS ---
STUDY: X-RAY - THORACIC SPINE REASON FOR EXAM: Female, 60 years old. back pain TECHNIQUE: 2 view(s) of the thoracic spine were obtained. COMPARISON: None. FINDINGS: Normal kyphosis of the thoracic spine. Moderate levoscoliosis of the upper thoracic spine. Mild asymmetric disc space narrowing at multiple levels. Diffuse demineralization of the osseous structures. Chronic compression deformities of T12-L3 noted. No new fractures are seen. The soft tissue structures are unremarkable. RAD/Thoracic Spine 3 Views IMPRESSION: 1. Chronic compression deformities. Electronically Signed: Jude Wells MD at 19:01 EDT , Service support ,
--- NOTE | 2020-12-11 17:57 | RAD_ITS ---
STUDY: X-RAY - LUMBAR SPINE REASON FOR EXAM: Female, 60 years old. back pain TECHNIQUE: 2 view(s) of the lumbar spine were obtained. COMPARISON: None FINDINGS: Normal lumbar lordosis. There is no substantial scoliosis. Diffuse demineralization of the osseous structures. Chronic compression deformities are present at T12, L1, L2, and L5. Late subacute compression fracture of the L3 vertebral body noted with 50% loss of height. Mild disc space narrowing is present at several levels. The L5 body has been previous treated. No visualized process. Stable right hip prosthesis. The soft tissue structures are unremarkable. RAD/Lumbar Spine 2 or 3 Views IMPRESSION: 1. Multiple late subacute to chronic compression deformities of the thoracic and lumbar spine. Electronically Signed: Jude Wells MD at 18:57 EDT , Service support ,
[2020-12-11] MEDS: Morphine 4 MG/ML Syringe IM (19:20)
[2020-12-11 20:05] VITALS: BP 128/89; PULSE 104; RESP 16; O2SAT 95
[2020-12-11] MEDS: Morphine 4 MG/ML Syringe IV (21:16)
[2020-12-11 21:33] LABS: Absolute Lymphocyte Count 1.74 X10^3/uL (0.83-4.51); Basophil# 0.03 X10^3/uL; Basophil% 0.4 % (0-1); Eosinophil# 0.07 X10^3/uL; Eosinophils% 0.9 % (0-5); Hematocrit 40.7 % (37-47); Hemoglobin 13.8 g/dL (12.0-15.0); Lymphocyte # 1.74 X10^3/ul (0.83-4.51); Lymphocyte % 22.4 % (19-41); Mean Corp Hgb Conc 33.9 g/dL (32-36); Mean Corpuscular Hgb 30.5 pg (27.0-32.0); Mean Corpuscular Volume 89.8 fL (81-99); Mean Platelet Vol. 9.8 fl (6.2-12.0); Monocyte# 0.84 X10^3/uL; Monocyte% 10.8 % (0-10); NRBC Flagged by Analyzer 0 % (0-5); Neutrophil # 5.04 X10^3/uL (2.7-7.7); Neutrophil % 64.9 % (47-70); Platelet Count 306 K/mm3 (150-450); RBC Distribution Width CV 13.7 % (11.6-14.6); RBC Distribution Width SD 44.9 fl (35.1-43.9); Red Blood Count 4.53 M/mm3 (4.2-5.4); White Blood Count 7.8 K/mm3 (4.4-11.0)
[2020-12-11 21:49] LABS: Anion Gap 12 (5-15); BUN 7 mg/dL (7-18); BUN/Creat Ratio 19.4 RATIO (10-20); Calcium,Total 9.6 mg/dL (8.5-10.1); Chloride 97 mmol/L (98-107); Creatinine, Serum 0.36 mg/dL (0.55-1.02); EST Glomerular Filtration Rate 194 mL/min (>60); Est Glom Filt Rate - Afr Amer 234 mL/min (>60); Estimated Creatinine Clearance 165.54 ml/min; Glucose 88 mg/dL (74-106); Potassium 3.2 mmol/L (3.5-5.1); Sodium Level 136 mmol/L (136-145)
--- NOTE | 2020-12-11 21:52 | PCM.HP.STD ---
[facility] - General General Date of Admission: 12/11/20 Date of Service: 12/11/20 Chief Complaint: Back pain. [facility] Narrative PRASHANT MAZARIEGOS, is a 60 F with past medical history as mentioned below presented to the emergency room because of back pain. Patient was admitted on late October, for back pain, found to have acute compression fracture of L3, L4 and L5, underwent kyphoplasty on November 08, 2020 and she was discharged to SNF for physical therapy. She was discharged from SNF 8 days ago, went home by herself. She stated that her back pain started to come back 1 day after discharge from the SNF, mid low back pain, intense pain, 9 out of 10 in severity, goes to both sides of her lower back, aggravated by any type of movement, bending or standing up and without relieving factors. She stated that her pain has been progressively worse and today, she could not get up. She denied mechanical fall or trauma. She denied focal arm or leg weakness. She denied paresthesia, numbness or tingling of both legs. In the emergency department, she was slightly tachycardic, other vital signs were stable. Routine blood work was remarkable for potassium of 3.2, otherwise normal. X-ray of the lumbar and thoracic spine revealed multiple subacute to chronic compression fractures of T12, L1, L2, L3, and L5. She is being admitted for intractable low back pain due to subacute lumbar and thoracic vertebral compression fractures and probably she will need to go back to halfway facility. [facility] Medical History Alcohol use Arthritis Compression fracture Depression Osteoporosis Scoliosis Home Medications aripiprazole 10 mg PO DAILY 03/05/19 [History Last Taken 11/07/20] denosumab 60 mg SC [id number] 05/28/19 [History Last Taken Unknown] multivitamin with folic acid 1 tab PO DAILYCM 05/28/19 [History Last Taken 11/07/20] buspirone 10 mg tablet 10 mg PO DAILY tab 06/25/19 [History Last Taken 11/07/20] acetaminophen 500 mg tablet 1,000 mg PO Q6H PRN 11/08/20 [History Last Taken 11/08/20 06:00] Lift Chair #1 ea 12/08/20 [Rx Last Taken Unknown] cholecalciferol (vitamin D3) [Vitamin D3] 25 mcg PO DAILY 12/11/20 [History Last Taken Unknown] oxycodone 5 mg PO BID PRN 12/11/20 [History Last Taken Unknown] Allergy/AdvReac Type Severity Reaction Status Date / Time No Known Allergies Allergy Verified 12/11/20 17:21 Family History Other Heart disease Osteoporosis Surgical History History of hip replacement History of tubal ligation S/P kyphoplasty Social History Smoking Status: Never smoker alcohol intake: former substance use type: does not use what type of physical activity do you participate in: none ROS Constitutional Constitutional: Denies anorexia, chills, fatigue, fever(s) or malaise Eyes Eyes: Denies blurry vision, change in eye color, change in vision, double vision or eye pain ENT HEENT: Denies ear pain, epistaxis, headache(s), nasal congestion, post nasal drip or sore throat Cardiovascular Cardiovascular: Denies chest pain, dyspnea on exertion, edema, lightheadedness, orthopnea, palpitations, paroxysmal nocturnal dyspnea or syncope Respiratory/Chest Respiratory/Chest: Denies cough, dyspnea, hemoptysis, productive cough, shortness of breath at rest, shortness of breath with exertion or wheezing Gastrointestinal Gastrointestinal: Denies abdominal pain, constipation, diarrhea, hematemesis, hematochezia, melena, nausea or vomiting Genitourinary Genitourinary: Denies burning urination, dysuria, hematuria, urinary hesitancy or urinary urgency Musculoskeletal Musculoskeletal: Reports back pain and neck pain; Denies arthralgias, joint pain, joint swelling or myalgias Neurologic Neurologic: Denies confusion, dizziness, focal weakness, headache(s), numbness, paresthesias, seizures, tingling or tremor(s) Psychiatric Psychiatric: Denies anxiety, depression, hallucinations, homicidal ideation or suicidal ideation Endocrine Endocrinology: Denies change in body appearance, cold intolerance, heat intolerance, polydipsia or polyuria Hematologic/Lymphatic Hematologic/Lymphatic: Denies easy bleeding, easy bruising or lymphadenopathy Allergic/Immunologic Allergic/Immunologic: Denies itchy eyes, rhinitis, throat swelling, tongue swelling, hives, urticaria or wheezing Vital Signs Vital Signs Vital Signs: 12/11/20 17:21 12/11/20 20:05 Temperature 99.7 F H Temperature Source Temporal Pulse Rate 123 H 104 H Respiratory Rate 18 16 Blood Pressure 149/86 H 128/89 H Blood Pressure Mean 107 102 Pulse Ox 93 95 Oxygen Delivery Method Room Air Room Air Weight Weight: 158 lb 8.198 oz Body Mass Index (BMI) 24.0 Physical Exam Const alert, oriented x3, no apparent distress and no limitations General Appearance: cooperative, comfortable and well kempt HEENT normocephalic, head/scalp atraumatic and moist oral mucous membranes Head and Scalp: normocephalic and atraumatic Eyes PERRL, EOMs intact bilaterally, conjunctivae normal and no scleral icterus General Eye: normal appearance of both eyes Periorbital: periorbital findings normal Neck no lymphadenopathy, supple, no meningeal signs, no JVD and no carotid bruits General: trachea midline Thyroid: thyroid normal Resp normal respiratory effort, normal air movement and clear to auscultation bilaterally Auscultation: Negative for crackles, rales, rhonchi or wheezes Cardio regular rate, regular rhythm, S1 normal heart sound, S2 normal heart sound, no murmurs and no JVD Peripheral Pulses: pulses 2+ throughout GI normal to inspection, nondistended, normoactive bowel sounds, soft to palpation, non-tender and non-distended; Negative for hepatosplenomegaly Auscultation: normoactive bowel sounds Extremity normal to inspection, full ROM and no clubbing, cyanosis or edema Skin no rashes or lesions noted, no wounds and no petechiae Neuro oriented x3, CN's II-XII intact bilaterally and moves all extremities Sensorium / Orientation: alert Speech: speech normal Motor Exam: strength 5/5 throughout Psych mental status grossly normal, affect normal and denies hallucinations Lab / Micro Data Result Diagrams: 12/11/20 21:20 12/11/20 21:20 Labs: Laboratory Results - last 24 hr 12/11/20 12/11/20 21:20 21:20 WBC 7.8 RBC 4.53 Hgb 13.8 Hct 40.7 MCV 89.8 MCH 30.5 MCHC 33.9 RDW Std Deviation 44.9 H RDW Coeff of Laxmi 13.7 Plt Count 306 MPV 9.8 Immature Gran % (Auto) 0.600 Neut % (Auto) 64.9 Lymph % (Auto) 22.4 Meeker % (Auto) 10.8 H Eos % (Auto) 0.9 Baso % (Auto) 0.4 Absolute Neuts (auto) 5.0 Absolute Lymphs (auto) 1.74 Nucleated RBC % 0 Sodium 136 Potassium 3.2 L Chloride 97 L Carbon Dioxide 27.0 Anion Gap 12 BUN 7 Creatinine 0.36 L Estim Creat Clear Calc 165.54 Est GFR (MDRD) Af Amer 234 Est GFR (MDRD) Non-Af 194 BUN/Creatinine Ratio 19.4 Glucose 88 Calcium 9.6 Radiology Impression Lumbar Spine X-Ray 12/11/20 17:57 IMPRESSION: 1. Multiple late subacute to chronic compression deformities of the thoracic and lumbar spine. Electronically Signed: Jude Wells MD at 18:57 EDT , Service support , Thoracic Spine X-Ray 12/11/20 17:57 IMPRESSION: 1. Chronic compression deformities. Electronically Signed: Jude Wells MD at 19:01 EDT , Service support , Assessment & Plan Assessment/Plan (1) S/P kyphoplasty: (2) Compression fracture: (3) Compression fracture of thoracic spine, non-traumatic: QUALIFIERS: Encounter type: initial encounter Thoracic vertebra fracture level: T7 Qualified Code(s): M48.54XA - Collapsed vertebra, not elsewhere classified, thoracic region, initial encounter for fracture (4) Debility: (5) Bipolar disorder: (6) Alcoholism: (7) Chronic back pain: PLAN: This is a 60 years old female patient presented to the emergency room because of recurrent low back pain, had a recent history of acute compression fractures of lumbar and thoracic vertebrae, was discharged to SNF from which she was discharged 1 week ago and she came back with worsening back pain. #1 acute intractable low back pain/recent multilevel thoracic and lumbar vertebral fracture: MRI lumbar spine, CT scan lumbar spine as well as x-rays that was done today reviewed. Patient lives alone at home and she has been having difficulty ambulating. She had kyphoplasty on November 08, [address] Romero. Routine blood work was remarkable for potassium of 3.2 otherwise unremarkable. No history of trauma or mechanical fall. [facility], start Tylenol as needed, IV morphine as needed, oxycodone as needed, Zofran as needed, PT OT evaluation and treatment, case management consult for placement to halfway facility. #2 physical debility/functional decline/difficulty ambulating: Due to #1. Patient lives alone at home. Plan for PT OT evaluation and treatment, patient will need placement to halfway facility. #3 bipolar disorder/anxiety: Continue aripiprazole and BuSpar. #4 DVT prophylaxis: Subcu Lovenox. This note was generated with [email or web address] dictation software. It may contain incorrect words, spelling, and punctuation that were not noted in checking the note before signing. Visit Charges OBSV E&M: 42384 Initial observation care L3
[2020-12-11 22:27] VITALS: BP 130/78; PULSE 87; RESP 16; TEMP 36.3; O2SAT 96
[2020-12-11 22:37] VITALS: BMI 23.1
[2020-12-11 22:38] VITALS: BP 122/76; PULSE 107; RESP 18; TEMP 36.6; O2SAT 97
[2020-12-11] MEDS: Potassium Chloride Oral Tablet 20 MEQ 60 MEQ PO (23:08)
[2020-12-11] MEDS: oxyCODONE 5 MG Tablet PO (23:09)
[2020-12-12] VITALS (7 sets, daily range): BP systolic 96–113; BP diastolic 62–73; PULSE 89–110; RESP 16–18; TEMP 36.4–36.6; O2SAT 94–96; BMI 23.1
[2020-12-12] MEDS: Acetaminophen 325 MG Tablet 650 MG PO ×3 (02:00→22:41)
[2020-12-12] MEDS: oxyCODONE 5 MG Tablet PO ×4 (03:48→20:10)
--- NOTE | 2020-12-12 07:27 | PN.HOSP_ITS ---
Subjective Subjective Patient recently had kyphoplasty on 11/08. Has osteoporosis and chronic compression fracture of T12-L5 vertebrae. Patient came back to ER for severe back pain especially on ambulation. Describes back pain mainly is localized lumbar area without radiation or sciatica in nature. No new urinary or fecal incontinence or urinary retention Objective Data Objective Data Vital Signs: Vital Signs Temp Pulse Resp BP Pulse Ox 97.6 F L 89 18 107/69 96 12/12/20 03:45 12/12/20 03:45 12/12/20 03:45 12/12/20 03:45 12/12/20 03:45 Oxygen Delivery Method Room Air Weight: 152 lb 1.903 oz Body Mass Index (BMI) 23.1 Intake & Output: Intake and Output for Last 24 Hours 12/10/20 12/11/20 12/12/20 23:59 23:59 23:59 Intake Total 240 / 240 300 / 300 Output Total 250 / 250 750 / 750 Balance -10 / -10 -450 / -450 Lab / Micro Data Result Diagrams: 12/11/20 21:20 12/11/20 21:20 Labs: Laboratory Results - last 24 hr 12/11/20 12/11/20 21:20 21:20 WBC 7.8 RBC 4.53 Hgb 13.8 Hct 40.7 MCV 89.8 MCH 30.5 MCHC 33.9 RDW Std Deviation 44.9 H RDW Coeff of Laxmi 13.7 Plt Count 306 MPV 9.8 Immature Gran % (Auto) 0.600 Neut % (Auto) 64.9 Lymph % (Auto) 22.4 Gem % (Auto) 10.8 H Eos % (Auto) 0.9 Baso % (Auto) 0.4 Absolute Neuts (auto) 5.0 Absolute Lymphs (auto) 1.74 Nucleated RBC % 0 Sodium 136 Potassium 3.2 L Chloride 97 L Carbon Dioxide 27.0 Anion Gap 12 BUN 7 Creatinine 0.36 L Estim Creat Clear Calc 165.54 Est GFR (MDRD) Af Amer 234 Est GFR (MDRD) Non-Af 194 BUN/Creatinine Ratio 19.4 Glucose 88 Calcium 9.6 Radiography Diagnostic Testing: Radiology Impression Lumbar Spine X-Ray 12/11/20 17:57 IMPRESSION: 1. Multiple late subacute to chronic compression deformities of the thoracic and lumbar spine. Electronically Signed: Jude Wells MD at 18:57 EDT , Service support , Thoracic Spine X-Ray 12/11/20 17:57 IMPRESSION: 1. Chronic compression deformities. Electronically Signed: Jude Wells MD at 19:01 EDT , Service support , Physical Exam Narrative General: Alert, Oriented x3, Cooperative HEENT: Atraumatic, PERRLA, EOMI, Normocephalic Oral: No Gingival or Mucosal Lesions/ Ulcerations Neck: Supple, No JVD, Negative Carotid Bruits Lungs: Air entry diminished in bilateral lung bases. No crepitation/rhonchi Cardiovascular: Regular rate, Regular Rhythm, Normal S1, Normal S2, No murmurs Abdomen: Bowel Sounds Present, Soft, Non Tender, Non-Distended : No renal angle tenderness. No suprapubic tenderness. Extremities: No edema, Capillary Refill Less than 3 Seconds Skin: No rashes, No breakdown Musculoskeletal/spine: Tenderness present over lumbar spine. ROM restricted to upper lumbar spine. Neurological: Cranial nerves II-XII grossly intact, Deep Tendon Reflexes 2+/4 and Symmetrical, Neuro grossly intact Psych/Mental Status: Normal Affect, Appropriate. Assessment & Plan Assessment/Plan (1) Compression fracture: (2) Compression fracture of thoracic spine, non-traumatic: QUALIFIERS: Encounter type: initial encounter Thoracic vertebra fracture level: T7 Qualified Code(s): M48.54XA - Collapsed vertebra, not elsewhere classified, thoracic region, initial encounter for fracture PLAN: This is a 60 years old female patient presented to the emergency room because of recurrent low back pain, had a recent history of acute compre ssion fractures of lumbar and thoracic vertebrae, was discharged to SNF from which she was discharged 1 week ago and she came back with worsening back pain. #1 acute intractable low back pain/recent multilevel thoracic and lumbar vertebral fracture with osteoporosis: MRI lumbar spine and CT lumbar spine of October 2020 shows demineralization of lumbar vertebrae with progressive loss of height and wedging of L2-L3 and L5 vertebrae. Patient on Prolia. Patient was referred to Dr. Olvera therefore has been consulted. She had kyphoplasty on November 08, [address] Romero. Mild hypokalemia with K3.2. Potassium replaced and repeat K normal. No history of trauma or mechanical fall. On pain control. PT OT evaluation and management. Discussed with the immigration case worker for SNF placement. #2 physical debility/functional decline/difficulty ambulating due to #1 admission to the patient lives alone at home. #3 bipolar disorder/anxiety: Continue aripiprazole and BuSpar. #4 DVT prophylaxis: Subcu Lovenox. Clinical Impression(s) from Imaging Studies Lumbar Spine X-Ray 12/11/20 17:57 IMPRESSION: 1. Multiple late subacute to chronic compression deformities of the thoracic and lumbar spine. Thoracic Spine X-Ray 12/11/20 17:57 IMPRESSION: 1. Chronic compression deformities. Visit Charges Inpatient E&M: 65323 Subs Hosp L2
[2020-12-12] MEDS: Enoxaparin 40 MG/0.4 ML Syringe SC (09:30)
[2020-12-12] MEDS: ARIPiprazole 10 MG Tablet PO (09:30)
[2020-12-12] MEDS: busPIRone 5 MG Tablet 10 MG PO (09:30)
--- NOTE | 2020-12-12 12:00 | CASEMGMT ---
ARTUR POLLOCK Face to Face with patient for initial transition planning/care coordination assessment. RN PHILL introduced self and role at [facility]. Patient lying in bed, alert and oriented. Patient willing to participate in assessment and is able to answer all questions appropriately. Care providers, pharmacy, and demographics verified. Patient wishes to discharge to [facility]. RN PHILL updated SW Jj Fields. Patient states she has no further needs or concerns at this time. CM to follow for discharge planning needs that may arise. PCP: Jesusita Specialists: ronda Romero Preferred Pharmacy: [facility] Insurance: [facility] Prescription Benefit: yes Living Will/HPOA: none LNOK: friend Living Arrangements: patient lives alone in a first floor apartment with 2 steps and railing to enter the home. Patient states she is independent at home but was having more difficulty caring for self Transportation: friends DME/HHC: Patient states she has shower chair, raised toilet, grab bars, and walker at home. Patient states she has been to [facility] and [facility] in the past. Patient is active with [facility]. Disposition Plan: Patient to discharge to [facility] pending acceptance and precert. Shadia KING, RN, CM
--- NOTE | 2020-12-12 13:23 | NT.THERAPY_ITS ---
Medical Nutrition Therapy - History Nutrition Services has been consulted to:: Manage nutrient details of diet order Current diet/nutrition support order:: Regular-general diet. Regular food consistency. Regular/thin liquid consistency. Ensure enlive 120mL PO 4x/day at [employer]. - Anthropometric Measurements Height:: 5 ft 8 in Weight:: 69 kg Body Mass Index (BMI):: 23.1 - Relevant Labs Relevant Labs:: RDW Std Deviation 44.9 fl (35.1-43.9) H 12/11/20 21:20 Emmons % (Auto) 10.8 % (0-10) H 12/11/20 21:20 Potassium 3.2 mmol/L (3.5-5.1) L 12/11/20 21:20 Chloride 97 mmol/L (98-107) L 12/11/20 21:20 Creatinine 0.36 mg/dL (0.55-1.02) L 12/11/20 21:20 - Assessment Food and Nutrient Intake: Seen in conjunction w/ Yunior Milligan, environmental health and safety intern. Pt reports that she hasn't had a good appetite since being admitted to the hospital. She reports consuming an egg sandwich this morning for breakfast. She reports that she wasn't trying to lose weight. States that she thinks she lost weight at the correction because the portions were smaller than what she normally has. Reports that she was admitted to the correction on November 11. Pt's UBW is 160 and CBW is 151.8# which represents a 5% weight loss in 1 month- significant for malnutrition. - Nutrition Diagnosis: Clinical Problem Acute Disease or Injury Related Malnutrition Clinical Problem - Etiology: moderate malnutrition r/t inadequate oral intake and changes in living situation Clinical Problem - Signs/Symptoms: as evidenced by consumption of <75% of estimated energy requirements for one month and weight loss of 8#/5% in one month. - Protein Calorie Malnutrition Evidence of Malnutrition Exists: Yes Moderate Protein Calorie Malnutrition: Acute Illness/Injury - Nutrition Intervention Nutrition Prescription: 1,700-1,800 kcal/day (RMR x 1.3). Protein 70g/day (1.0g/kg). Fluid 2,000-2,100mL/day (30mL/kg) - Food / Nutrient Delivery Interventions Summary of nutrition intervention:: Nutrition education provided, Provide oral nutrition supplement Nutrition support ordered as / adjusted to:: Continue regular-general diet. Continue ensure enlive 120mL PO 4x/day at [facility]. Nutrition education provided?: Yes - MNT Monitoring Active Nutrition Patient: Yes Nutrition Status: Requires Follow Up 3-5 Days
--- NOTE | 2020-12-12 14:31 | CHAPLAIN ---
Type of Pastoral Visit _x__ Initial Visit ___ Follow-up Visit ___ On-call Visit ___ General Patient Visit ___ Spiritual Assessment ___ Family Conference ___ Bereavement ___ Rapid Response ___ Code Blue ___ Other (describe below) Pastoral Care Referral From _x__ Patient ___ Family ___ Nurse ___ Physician ___ Talent Development Specialist ___ Toll Collector Supervisor ___ Other (describe below) Sacrament/Intervention _x__ Active listening ___ Anointing ___ Islam ___ Bereavement ___ Communion _x__ Kayla exploration ___ _x__ Life review _x__ Prayer ___ Reconciliation ___ Sacrament of Sick _x__ Supportive presence ___ Wedding ___ Other (describe below) Pastoral Comments
--- NOTE | 2020-12-12 15:17 | CASEMGMT ---
Addendum entered by Shadia Fields 12/12/20 16:12: SW received call from Paula at [facility] stating they can accept pt and will submit for pre-cert. SW updated pt. Plan: [facility] pending pre-cert Original Note: Social Work Note SW received referral for SNF placement and pt's preference is [facility]. SW in to speak with pt. SW introduced self and role at [facility]. Patient was provided a list of SNF providers including quality and resource use data and consistent with the patient?s preferred geographic region, medical needs, and insurance network. Pt's preferred provider is [facility]. SW informed pt that this worker faxed referral to [facility] and is waiting to hear back regarding referral. Pt states that she has also called [facility]. SW received call from Paula at [facility] stating she received referral and clinical team is reviewing it. Plan: [facility] pending acceptance and pre-cert Shadia Fields POWER PLANT SUPERINTENDENT, DEPARTMENT EDITOR
[2020-12-12] MEDS: 0.9% Saline Lock 10 ML Syringe IV (20:10)
[2020-12-13] VITALS (8 sets, daily range): BP systolic 94–128; BP diastolic 66–81; PULSE 89–110; RESP 16–18; TEMP 36.2–36.8; O2SAT 93–97
[2020-12-13] MEDS: oxyCODONE 5 MG Tablet PO ×5 (00:49→20:44)
[2020-12-13] MEDS: busPIRone 5 MG Tablet 10 MG PO (10:11)
[2020-12-13] MEDS: ARIPiprazole 10 MG Tablet PO (10:11)
[2020-12-13] MEDS: Enoxaparin 40 MG/0.4 ML Syringe SC (10:11)
--- NOTE | 2020-12-13 10:32 | CASEMGMT ---
Addendum entered by Shadia Fields 12/13/20 15:08: VIJAY placed a call to Florence at [facility] to inquire about pre-cert. Florence states pre-cert is still pending. Original Note: Social Work Note VIJAY placed a call to Paula at [facility] and left message that pt is medically ready for discharge once pre-cert is obtained. Plan: [facility] pending pre-cert Shadia Fields ELECTRONICS INSPECTOR, DRYWALL HANGER HELPER
[2020-12-13] MEDS: Acetaminophen 325 MG Tablet 650 MG PO (12:15)
[2020-12-13] MEDS: Senna/Docusate Sodium 1 Tablet 2 TABLET PO (15:11)
--- NOTE | 2020-12-13 15:27 | PN.HOSP_ITS ---
Subjective Subjective Patient back pain is controlled but gets worse/exacerbated on moving. Heart rate in upper 100s. Objective Data Objective Data Vital Signs: Vital Signs Temp Pulse Resp BP Pulse Ox 97.2 F L 110 H 18 110/69 95 12/13/20 14:15 12/13/20 14:15 12/13/20 14:15 12/13/20 14:15 12/13/20 14:15 Oxygen Delivery Method Room Air Weight: 152 lb 1.903 oz Body Mass Index (BMI) 23.1 Intake & Output: Intake and Output for Last 24 Hours 12/11/20 12/12/20 12/13/20 23:59 23:59 23:59 Intake Total 240 / 240 300 / 900 1000 / 1000 Output Total 250 / 250 750 / 750 Balance -10 / -10 -450 / 150 1000 / 1000 Lab / Micro Data Result Diagrams: 12/11/20 21:20 12/11/20 21:20 Physical Exam Narrative Seen and examined. General: Alert, Oriented x3, Cooperative HEENT: Atraumatic, PERRLA, EOMI, Normocephalic Oral: No Gingival or Mucosal Lesions/ Ulcerations Neck: Supple, No JVD, Negative Carotid Bruits Lungs: Air entry diminished in bilateral lung bases. No crepitation/rhonchi Cardiovascular: Mild sinus tachycardia, Normal S1, Normal S2, No murmurs Abdomen: Bowel Sounds Present, Soft, Non Tender, Non-Distended : No renal angle tenderness. No suprapubic tenderness. Extremities: No edema, Capillary Refill Less than 3 Seconds Skin: No rashes, No breakdown Musculoskeletal/spine: Tenderness present over lumbar spine and paraspinal muscles. ROM restricted to lower spine. Neurological: Cranial nerves II-XII grossly intact, Deep Tendon Reflexes 2+/4 and Symmetrical, Neuro grossly intact Psych/Mental Status: Normal Affect, Appropriate. Assessment & Plan Assessment/Plan (1) Compression fracture: (2) Compression fracture of thoracic spine, non-traumatic: QUALIFIERS: Encounter type: initial encounter Thoracic vertebra fracture level: T7 Qualified Code(s): M48.54XA - Collapsed vertebra, not elsewhere classified, thoracic region, initial encounter for fracture PLAN: This is a 60 years old female patient presented to the emergency room because of recurrent low back pain, had a recent history of acute compression fractures of lumbar and thoracic vertebrae, was discharged to SNF from which she was discharged 1 week ago and she came back with worsening back pain. #1 acute intractable low back pain/recent multilevel thoracic and lumbar vertebral fracture with osteoporosis: MRI lumbar spine and CT lumbar spine of October 2020 shows demineralization of lumbar vertebrae with progressive loss of height and wedging of L2-L3 and L5 vertebrae. Patient on Prolia. Patient was referred to Dr. Olvera therefore has been consulted. She had kyphoplasty on November 08, [address] Romero. Mild hypokalemia with K3.2. Potassium replaced and repeat K normal. No history of trauma or mechanical fall. On pain control. PT OT evaluation and management. Discussed with the family service caseworker for SNF placement. 12/13: Recheck electrolytes tomorrow a.m. #2 physical debility/functional decline/difficulty ambulating due to #1 admission to the patient lives alone at home. #3 bipolar disorder/anxiety: Continue aripiprazole and BuSpar. #4 DVT prophylaxis: Subcu Lovenox. Clinical Impression(s) from Imaging Studies Lumbar Spine X-Ray 12/11/20 17:57 IMPRESSION: 1. Multiple late subacute to chronic compression deformities of the thoracic and lumbar spine. Thoracic Spine X-Ray 12/11/20 17:57 IMPRESSION: 1. Chronic compression deformities. Visit Charges Inpatient E&M: 17143 Subs Hosp L2
[2020-12-13] MEDS: Metoprolol Tartrate 25 MG Tablet 12.5 MG PO (16:43)
--- NOTE | 2020-12-13 17:26 | PCM.CONS.B ---
Consult Date of Consult: 12/13/[address] Olvera doing consultation on Salima Whitney. The patient is seen at the request of the hospitalist and at the with the patient's permission. She has a history of having had low back pain since October. Almost 2 weeks ago had to perform kyphoplasty of what I believe was the L5 vertebra. She returned back to the detention but started having more pain shortly thereafter. He was admitted a couple of days ago through the emergency room because of severe low back pain. She was diagnosed as having osteoporosis about 3 years ago. She is being treated for that. On examination she is neurologically intact. She has good motor strength in all the major muscle groups of both lower extremities. She has physiologic reflexes bilaterally. She has no long tract signs. Clonus is absent Babinski's are downgoing. I reviewed plain x-rays of her lumbar spine and the recent MRI scan done. Appears to have cement in the L5 vertebral body. This is seen on plain x-rays. There is endplate compression at various levels including L4 L3 and L2. I am recommending that she has kyphoplasty's of the L4 L3 and L2 levels. I will contact and ask him to get her scheduled. This is the end of consultation on Margoth Sigdmitry, this is Dr. Olvera dictating thank you.
[2020-12-13 17:48] LABS: Anion Gap 6 (5-15); BUN 12 mg/dL (7-18); BUN/Creat Ratio 16.8 RATIO (10-20); Calcium,Total 9.1 mg/dL (8.5-10.1); Chloride 99 mmol/L (98-107); Creatinine, Serum 0.71 mg/dL (0.55-1.02); EST Glomerular Filtration Rate 88 mL/min (>60); Est Glom Filt Rate - Afr Amer 107 mL/min (>60); Estimated Creatinine Clearance 83.94 ml/min; Glucose 103 mg/dL (74-106); Potassium 3.7 mmol/L (3.5-5.1); Sodium Level 138 mmol/L (136-145)
[2020-12-14] VITALS (7 sets, daily range): BP systolic 95–126; BP diastolic 65–77; PULSE 81–103; RESP 16–18; TEMP 36.4–37; O2SAT 92–96
[2020-12-14] MEDS: Acetaminophen 325 MG Tablet 650 MG PO ×3 (00:19→18:38)
[2020-12-14] MEDS: oxyCODONE 5 MG Tablet PO ×5 (04:18→20:36)
[2020-12-14 06:24] LABS: Anion Gap 5 (5-15); BUN 10 mg/dL (7-18); BUN/Creat Ratio 21.3 RATIO (10-20); Chloride 102 mmol/L (98-107); Creatinine, Serum 0.47 mg/dL (0.55-1.02); EST Glomerular Filtration Rate 143 mL/min (>60); Est Glom Filt Rate - Afr Amer 173 mL/min (>60); Glucose 98 mg/dL (74-106); Potassium 3.4 mmol/L (3.5-5.1); Sodium Level 139 mmol/L (136-145)
[2020-12-14] MEDS: Metoprolol Tartrate 25 MG Tablet 12.5 MG PO (08:43)
[2020-12-14] MEDS: busPIRone 5 MG Tablet 10 MG PO (08:45)
[2020-12-14] MEDS: Enoxaparin 40 MG/0.4 ML Syringe SC (08:45)
[2020-12-14] MEDS: ARIPiprazole 10 MG Tablet PO (08:45)
[2020-12-14] MEDS: Potassium Chloride Oral Tablet 20 MEQ 40 MEQ PO (08:58)
[2020-12-14] MEDS: Senna/Docusate Sodium 1 Tablet 2 TABLET PO ×2 (09:02→18:39)
--- NOTE | 2020-12-14 11:56 | CASEMGMT ---
Addendum entered by Shadia Fields 12/14/20 13:44: VIJAY faxed updated clinicals to [facility]. Original Note: Social Work Note VIJAY spoke with Paula at [facility]. Paula states she anticipates she will get pre-cert today. Pt is not medically ready for discharge today as pt is getting Kyphoplasty tomorrow. Pt will likely be ready for discharge over the weekend. VIJAY placed a call to Paula at [facility] and updated her, asked to be notified when pre-cert is obtained and how long pre-cert is good for. Plan: [facility] pending pre-cert Shadia Fields PEDIATRIC ANESTHESIOLOGIST, [employer] AND LATHE OPERATOR
--- NOTE | 2020-12-14 13:15 | PCM.PN.HOSP ---
Subjective Subjective Patient was seen by spine surgeon Dr. Olvera and pain management Dr. Romero. She had L5 vertebra kyphoplasty and Dr. Olvera recommended L2-3-4 kyphoplasty. Objective Data Objective Data Vital Signs: Vital Signs Temp Pulse Resp BP Pulse Ox 98.6 F 103 H 16 126/72 H 94 12/14/20 10:00 12/14/20 10:00 12/14/20 10:00 12/14/20 10:00 12/14/20 10:00 Oxygen Delivery Method Room Air Weight: 152 lb 1.903 oz Body Mass Index (BMI) 23.1 Intake & Output: Intake and Output for Last 24 Hours 12/12/20 12/13/20 12/14/20 23:59 23:59 23:59 Intake Total 300 / 900 1240 / 1340 400 / 400 Output Total 750 / 750 Balance -450 / 150 1240 / 1340 400 / 400 Lab / Micro Data Result Diagrams: 12/11/20 21:20 12/14/20 05:40 Labs: Laboratory Results - last 24 hr 12/13/20 12/14/20 16:56 05:40 Sodium 138 139 Potassium 3.7 3.4 L Chloride 99 102 Carbon Dioxide 33.0 H 32.0 Anion Gap 6 5 BUN 12 10 Creatinine 0.71 0.47 L Estim Creat Clear Calc 83.94 126.80 Est GFR (MDRD) Af Amer 107 173 Est GFR (MDRD) Non-Af 88 143 BUN/Creatinine Ratio 16.8 21.3 H Glucose 103 98 Calcium 9.1 9.0 Magnesium 2.0 Physical Exam Narrative Seen and examined. She understood procedure of kyphoplasty. She had some questions of general anesthesia and epidural anesthesia and explained and told her that she will be explained prior to her anesthesia by anesthesiologist General: Alert, Oriented x3, Cooperative HEENT: Atraumatic, PERRLA, EOMI, Normocephalic Oral: No Gingival or Mucosal Lesions/ Ulcerations Neck: Supple, No JVD, Negative Carotid Bruits Lungs: Air entry diminished in bilateral lung bases. No crepitation/rhonchi Cardiovascular: Mild sinus tachycardia, Normal S1, Normal S2, No murmurs Abdomen: Bowel Sounds Present, Soft, Non Tender, Non-Distended : No renal angle tenderness. No suprapubic tenderness. Extremities: No edema, Capillary Refill Less than 3 Seconds Skin: No rashes, No breakdown Musculoskeletal/spine: Mild tenderness present over lumbar spine and paraspinal muscles. ROM restricted to lower spine. Neurological: Cranial nerves II-XII grossly intact, Deep Tendon Reflexes 2+/4 and Symmetrical, Neuro grossly intact. No new bladder or bowel incontinence or retention Psych/Mental Status: Normal Affect, Appropriate. Assessment & Plan Assessment/Plan (1) Compression fracture: (2) Compression fracture of thoracic spine, non-traumatic: QUALIFIERS: Encounter type: initial encounter Thoracic vertebra fracture level: T7 Qualified Code(s): M48.54XA - Collapsed vertebra, not elsewhere classified, thoracic region, initial encounter for fracture PLAN: This is a 60 years old female patient presented to the emergency room because of recurrent low back pain, had a recent history of acute compression fractures of lumbar and thoracic vertebrae, was discharged to SNF from which she was discharged 1 week ago and she came back with worsening back pain. #1 acute intractable low back pain/recent multilevel thoracic and lumbar vertebral fracture with osteoporosis: MRI lumbar spine and CT lumbar spine of October 2020 shows demineralization of lumbar vertebrae with progressive loss of height and wedging of L2-L3 and L5 vertebrae. Patient on Prolia. Patient was referred to Dr. Olvera therefore has been consulted. She had kyphoplasty on November 08, [address] Romero. No history of trauma or mechanical fall. On pain control. PT OT evaluation and management. Discussed with the child support case officer for SNF placement. 6/2: Recheck electrolytes tomorrow a.m. 6/3: K3.4. Potassium is getting replaced. Magnesium 2.0. Scheduled for L2-3-[address] Romero tomorrow a.m[address] Metoprolol dose increased to 25 mg p.o. twice daily for control of sinus tachycardia. #2 physical debility/functional decline/difficulty ambulating due to #1 admission to the patient lives alone at home. #3 bipolar disorder/anxiety: Continue aripiprazole and BuSpar. #4 DVT prophylaxis: Subcu Lovenox. Clinical Impression(s) from Imaging Studies Lumbar Spine X-Ray 12/11/20 17:57 IMPRESSION: 1. Multiple late subacute to chronic compression deformities of the thoracic and lumbar spine. Thoracic Spine X-Ray 12/11/20 17:57 IMPRESSION: 1. Chronic compression deformities. Charges/Coding Visit Charges Inpatient E&M: 17015 Subs Hosp L2
[2020-12-15] VITALS (15 sets, daily range): BP systolic 94–116; BP diastolic 69–84; PULSE 84–103; RESP 16–18; TEMP 36.2–36.8; O2SAT 92–98; BMI 23.1
[2020-12-15] MEDS: oxyCODONE 5 MG Tablet PO ×4 (00:54→15:09)
[2020-12-15 08:29] LABS: Anion Gap 5 (5-15); BUN 9 mg/dL (7-18); BUN/Creat Ratio 13.8 RATIO (10-20); Calcium,Total 9.2 mg/dL (8.5-10.1); Chloride 102 mmol/L (98-107); Creatinine, Serum 0.65 mg/dL (0.55-1.02); EST Glomerular Filtration Rate 98 mL/min (>60); Est Glom Filt Rate - Afr Amer 118 mL/min (>60); Estimated Creatinine Clearance 91.69 ml/min; Glucose 101 mg/dL (74-106); Potassium 4.3 mmol/L (3.5-5.1); Sodium Level 140 mmol/L (136-145)
[2020-12-15] MEDS: ARIPiprazole 10 MG Tablet PO (08:54)
[2020-12-15] MEDS: busPIRone 5 MG Tablet 10 MG PO (08:54)
[2020-12-15] MEDS: Metoprolol Tartrate 25 MG Tablet 12.5 MG PO ×2 (08:54→21:40)
[2020-12-15] MEDS: Potassium Chloride Oral Tablet 20 MEQ 40 MEQ PO (08:55)
[2020-12-15] MEDS: Senna/Docusate Sodium 1 Tablet 2 TABLET PO ×2 (08:58→21:40)
--- NOTE | 2020-12-15 11:09 | PCM.PN.HOSP ---
Subjective Subjective Patient is scheduled for epidural pain injection. Patient wants definitive kyphoplasty. Discussed with Dr. Romero and wants to see the response of epidural pain injection but her all vertebral fractures not amenable for TCU Objective Data Objective Data Vital Signs: Vital Signs Temp Pulse Resp BP Pulse Ox 98.1 F 103 H 18 106/80 96 12/15/20 08:52 12/15/20 08:54 12/15/20 08:52 12/15/20 08:52 12/15/20 08:52 Oxygen Delivery Method Room Air Weight: 152 lb 1.903 oz Body Mass Index (BMI) 23.1 Intake & Output: Intake and Output for Last 24 Hours 12/13/20 12/14/20 12/15/20 23:59 23:59 23:59 Intake Total 1240 / 1340 1500 / 1500 250 / 250 Balance 1240 / 1340 1500 / 1500 250 / 250 Lab / Micro Data Result Diagrams: 12/11/20 21:20 12/15/20 07:50 Labs: Laboratory Results - last 24 hr 12/15/20 07:50 Sodium 140 Potassium 4.3 Chloride 102 Carbon Dioxide 33.0 H Anion Gap 5 BUN 9 Creatinine 0.65 Estim Creat Clear Calc 91.69 Est GFR (MDRD) Af Amer 118 Est GFR (MDRD) Non-Af 98 BUN/Creatinine Ratio 13.8 Glucose 101 Calcium 9.2 Physical Exam Narrative Seen and examined. General: Alert, Oriented x3, Cooperative HEENT: Atraumatic, PERRLA, EOMI, Normocephalic Oral: No Gingival or Mucosal Lesions/ Ulcerations Neck: Supple, No JVD, Negative Carotid Bruits Lungs: Air entry diminished in bilateral lung bases. No crepitation/rhonchi Cardiovascular: Mild sinus tachycardia, Normal S1, Normal S2, No murmurs Abdomen: Bowel Sounds Present, Soft, Non Tender, Non-Distended : No renal angle tenderness. No suprapubic tenderness. Extremities: No edema, Capillary Refill Less than 3 Seconds Skin: No rashes, No breakdown Musculoskeletal/spine: Improvement in tenderness present over lumbar spine and paraspinal muscles. ROM restricted to lower spine. Neurological: Cranial nerves II-XII grossly intact, Deep Tendon Reflexes 2+/4 and Symmetrical, Neuro grossly intact. No new bladder or bowel incontinence or retention Psych/Mental Status: Normal Affect, Appropriate. Assessment & Plan Assessment/Plan (1) Compression fracture: (2) Compression fracture of thoracic spine, non-traumatic: QUALIFIERS: Encounter type: initial encounter Thoracic vertebra fracture level: T7 Qualified Code(s): M48.54XA - Collapsed vertebra, not elsewhere classified, thoracic region, initial encounter for fracture PLAN: This is a 60 years old female patient presented to the emergency room because of recurrent low back pain, had a recent history of acute compression fractures of lumbar and thoracic vertebrae, was discharged to SNF from which she was discharged 1 week ago and she came back with worsening back pain. #1 acute intractable low back pain/recent multilevel thoracic and lumbar vertebral fracture with osteoporosis: MRI lumbar spine and CT lumbar spine of October 2020 shows demineralization of lumbar vertebrae with progressive loss of height and wedging of L2-L3 and L5 vertebrae. Patient on Prolia. She had kyphoplasty on November 08, [address] Romero. No history of trauma or mechanical fall. On pain control. PT OT evaluation and management. Discussed with the supportive employment case manager for SNF placement. 61: Recheck electrolytes tomorrow a.m. 6/3: K3.4. Potassium is getting replaced. Magnesium 2.0. Scheduled for L2-3-[address] Romero tomorrow a.m. Metoprolol dose increased to 25 mg p.o. twice daily for control of sinus tachycardia. 6: K4.3. Electrolytes in normal range. Discussed with Dr. Romero and plan is epidural analgesia and assess the pain relief. If it is still not better might need kyphoplasty/vertebroplasty but all vertebral collapse fracture not amenable to to kyphoplasty. #2 physical debility/functional decline/difficulty ambulating due to #1 admission to the patient lives alone at home. #3 bipolar disorder/anxiety: Continue aripiprazole and BuSpar. #4 DVT prophylaxis: Subcu Lovenox. Clinical Impression(s) from Imaging Studies Lumbar Spine X-Ray 12/11/20 17:57 IMPRESSION: 1. Multiple late subacute to chronic compression deformities of the thoracic and lumbar spine. Thoracic Spine X-Ray 12/11/20 17:57 IMPRESSION: 1. Chronic compression deformities. Charges/Coding Visit Charges Inpatient E&M: 43350 Subs Hosp L2
--- NOTE | 2020-12-15 12:30 | RAD_ITS ---
STUDY: X-RAY - LUMBAR SPINE REASON FOR EXAM: Female, 60 years old. BLOCK,LUMBAR EPIDURAL, L3-4 TECHNIQUE: 2 intraoperative view(s) of the lumbar spine were obtained. COMPARISON: None FINDINGS: Intraoperative imaging provided for epidural block at the L3-L4 level. RAD/Spine 1 View Any Level IMPRESSION: Intraoperative fluoroscopic services provided for epidural block at the L3-L4 level Electronically Signed: Pedro Timmons MD at 9:01 EDT , Service support ,
[2020-12-15] MEDS: Lidocaine 0.5% (50 ml) 50 ML Vial (13:12)
[2020-12-15] MEDS: Triamcinolone Acetonide 40 MG/ML Vial (13:13)
--- NOTE | 2020-12-15 13:59 | NURSING ---
Back from Surgery and pt had a mac local.
--- NOTE | 2020-12-15 16:21 | CASEMGMT ---
Social Work SW spoke with [facility] and precert has been obtained and they are able to accept pt on Friday. Physician and pt updated on discharge plan and agreeable. Pt states she will notify sewing machine operator floorperson. 7000 convalescent form completed in [employer] system. Plan: [facility] on Friday. SHERRILL Joshua
[2020-12-15] MEDS: 0.9% Normal Saline 1,000 ML 35 ML IV (16:55)
[2020-12-15] MEDS: Acetaminophen 325 MG Tablet 650 MG PO (21:40)
[2020-12-16 02:39] VITALS: BP 102/65; PULSE 76; RESP 16; TEMP 36.4; O2SAT 93
[2020-12-16] MEDS: Acetaminophen 325 MG Tablet 650 MG PO (04:55)
--- NOTE | 2020-12-16 06:33 | PCM.TXEXTCAR ---
Diet 12/15/20 16:24 Diet: Regular - General Is pt able to select menu?: Yes Routine Orders/Code Status Enema Type: Fleetz Enema Frequency: Daily PRN Suppository Type: Dulcolax 10mg Suppository Frequency: Daily PRN Keep PO Greater than or Equal to (%): 92 Routine Lab Work: - (CBC, BMP in 1 week.) Code Status: Full Code Wound(s) LUMBAR SPINE: Wound Type: Puncture Suggestions for Active Care Change Position every (hours): 2 Hours to sit in a chair: 4 Times a day to sit in chair: 3 Therapies Weight Bearing: Weight bearing as tolerated Occupational Therapy: Eval and Treat Speech Therapy: Eval and Treat Problem/Diagnosis (1) Compression fracture: Status: Acute Comment: Epidural infection administered per Dr. Romero. Will follow-up in his office for additional intervention discussions. (2) Compression fracture of thoracic spine, non-traumatic: Status: Chronic Allergies/Procedures Done in Hospital Allergies No Known Allergies Allergy (Verified 12/11/20 17:21) Procedures: - (Epidural infection per Dr. Romero.) Type of Care/Length of Stay Estimated LOS: Convalescent Care Less Than 30 days Type of Care Needed: Skilled Rehab Potential: Good Prognosis: Good Additional Orders/Day of Discharge Additional Orders: (1) Fall precautions, (2) Position changes q 2 hours, (3) IS 10x/hr 7a-7p H&P will serve as current which was dated: 12/11/20 Day of Discharge: 12/16/20 Dietary and Speech Recommendations Dietitian Recommendations/Changes: Continue regular-general diet. Continue ensure enlive 120mL PO 4x/day at [facility]. Alva Flores MS, RDN, LD Follow Up Care Please follow up with your Primary Care Physician in: Edward Abdi Please Follow Up With: Edward Mc MD When: In 1-2 days SNF discharge and within 3-5 days of Hospital discharge. Please Follow Up With: Aletha Romero MD When: In 3-5 days to discussion possible additional interventions/treatment plan. Discharge Plan Admission Admit Date/Time: 12/11/20 21:51 Primary Reason for Your Visit: Intractable back pain, compression fractures. Attending Provider: Kelly Rowland Primary Care Provider: Edward Mc Consulting Providers: Ashu Olvera ; Aletha Romero Discharge Orders/Prescriptions Prescriptions: New sennosides-docusate sodium [Stool Softener-Stimulant Laxat] 8.6-50 mg Tablet 2 tab PO BID PRN PRN (Reason: Constipation) 30 Days Qty: 60 RF: 0 potassium chloride [Klor-Con M20] 20 mEq Tablet,Er Particles/Crystals 40 meq PO DAILYCM 30 Days Qty: 60 RF: 0 metoprolol tartrate 25 mg Tablet 12.5 mg PO BID 30 Days Qty: 30 RF: 0 oxycodone 5 mg Tablet 5 mg PO Q4H PRN PRN (Reason: Pain Score 4-5) 5 Days Qty: 30 RF: 0 Continued buspirone 10 mg tablet 10 mg PO DAILY RF: 0 acetaminophen [Tylenol Extra Strength] 500 mg tablet 1,000 mg PO Q6H PRN (Reason: Pain) RF: 0 aripiprazole 10 MG tablet 10 mg PO DAILY RF: 0 denosumab 60 MG/ML syringe 60 mg SC [id number] RF: 0 multivitamin with folic acid 1 TABLET tablet 1 tab PO DAILYCM RF: 0 cholecalciferol (vitamin D3) [Vitamin D3] 25 mcg (1,000 unit) Capsule 25 mcg PO DAILY RF: 0 (DME) Lift Chair See Rx Instructions .Route .MEDSUPPLY Qty: 1 RF: 0 Discontinued oxycodone 5 mg tablet 5 mg PO BID PRN (Reason: Pain) RF: 0 Referrals / Follow Up: Aletha Romero MD [STAFF PHYSICIAN] - (Follow-up within 3-5 days to review future treatment plan options.) Edward Mc MD [Primary Care Provider] - (Follow-up in 1-2 days after SNF discharge and within 3-5 days of hospital discharge.) Disposition Disposition (needs filled in before D/C Order can be placed): [facility]
--- NOTE | 2020-12-16 07:09 | PCM.DC.SUM ---
Providers Date of Admission: 12/11/20 Primary Care Physician: Dr. Edward Mc MD Consultations 12/12/20 13:03 Consult: Orthopedics Routine Consulting Provider: Ashu Olvera Reason for Consult: Lumbar spine pain. Subacute/chronic compression fracture of T12-L5 EMERGENT Consult: No MD Notified: Yes Date Notified:: 12/12/20 Time Notified: 15:03 Method of Notification: Page 12/13/20 17:41 Consult: Pain Management Routine Consulting Provider: Aletha Romero Reason for Consult: mutiple compression fractures lumbar spine EMERGENT Consult: No MD Notified: Yes Date Notified:: 12/13/20 Time Notified: 17:45 Method of Notification: Provider Initiated Reason For Visit: INTRACTABLE LOW BACK PAIN, RECENT COMPRESSION FX Diagnosis Discharge Diagnosis (1) Compression fracture: Status: Acute (2) Compression fracture of thoracic spine, non-traumatic: Status: Chronic Code(s): M48.54XA - Collapsed vertebra, not elsewhere classified, thoracic region, initial encounter for fracture Qualifiers: Encounter type: initial encounter Thoracic vertebra fracture level: T7 Qualified Code(s): M48.54XA - Collapsed vertebra, not elsewhere classified, thoracic region, initial encounter for fracture Medications at Discharge Home Medications aripiprazole 10 mg PO DAILY 03/05/19 denosumab 60 mg SC [id number] 05/28/19 multivitamin with folic acid 1 tab PO DAILYCM 05/28/19 buspirone 10 mg tablet 10 mg PO DAILY tab 06/25/19 acetaminophen 500 mg tablet 1,000 mg PO Q6H PRN 11/08/20 Lift Chair #1 ea 12/08/20 cholecalciferol (vitamin D3) [Vitamin D3] 25 mcg PO DAILY 12/11/20 metoprolol tartrate 12.5 mg PO BID 30 Days #30 tab 12/16/20 oxycodone 5 mg PO Q4H PRN PRN 5 Days #30 tab 12/16/20 potassium chloride [Klor-Con M20] 40 meq PO DAILYCM 30 Days #60 tab 12/16/20 sennosides-docusate sodium [Stool Softener-Stimulant Laxat] 2 tab PO BID PRN PRN 30 Days #60 tab 12/16/20 Hospital Course Operations None Procedures - (Epidural infection per Dr. Romero.) Summary of Care Provided Minutes Spent on Discharge: 35 Hospital Course: Discharge Diagnoses: 1. Acute on chronic intractable lumbar back pain with multilevel thoracic and lumbar vertebral fractures with severe osteoporosis 2. Electrolyte disturbances including hypokalemia, corrected 3. Failure to thrive, adult secondary to significant acute on chronic pain 4. Bipolar disorder/anxiety and depression 5. Former alcohol abuse, sober. Discharge Summary: The patient is a 60 y/o F w/ PMHx: Severe OA, Chronic back pain, Anxiety and Depression/Bipolar disorder, Former EtOH abuse who presented to the [facility] ED on 12/11/20 w/ history of ongoing back discomfort specifically the lumbar region since October with imaging at that time demonstrating acute compression fractures of the L3, L4 and L5 region with kyphoplasty performed with transition following back to her skilled facility and eventual transition back to home however she had been having worsening discomfort following transition from her skilled facility to home prompting ED evaluation. Patient admitted to the medical surgical floor secondary to intractable back pain, maintained on pain regimen with some improvement, Dr. Goldstein and Dr. Olvera consulted with initial consideration for kyphoplasty of the lumbar L2-L4 levels however decision for initial trial of epidural injection which was performed with patient clinical improvement. Given patient improvement patient transition to care home facility with plan to follow-up with Dr. Romero for reassessment and consideration of potential kyphoplasty repeat at that time. Discharge Time: > 35 Minutes DAY OF DISCHARGE PROGRESS NOTE: Subjective: Patient without acute event overnight per self and nursing report. Patient denies fever, chills, nausea, emesis, abdominal pain, chest pain or dyspnea. Patient notes her lumbar back discomfort since epidural has improved and she is able to move with greater ease but still does have some discomfort primarily with standing. Patient agreeable to discharge to care home facility for ongoing therapies and pain control. Patient will be discharged with follow-up with primary care physician within 3-5 days in addition to follow-up with Dr. Romero for reassessment for consideration kyphoplasty pending response to epidural. Objective: T 97.8, heart rate 89, BP 109/65, respiratory rate 16, 95% on room air. Physical Examination: General: awake, alert, oriented x 3 and cooperative, seated upright in the medical surgical bedside chair, eating, no acute distress, appears to be moving with much greater ease. Skin: normal color, normal turgor, no icterus, no cyanosis. HEENT: AT/NC, EOMI, PERRLA, MMM. Lungs: CTA bilaterally, moderate effort, mild decrease BL bases, no rales, ronchi or wheezing; Heart: Regular rate and rhythm; no gallop, rub audible. Abdomen: soft, NTTP, ND, normal BS. Extremities: no cyanosis, clubbing, or edema. Neurological: patient awake, alert, oriented as noted; cognitive function appears intact upon questioning,; pupils equally reactive to light and accomodation; cranial nerves II-XII grossly normal, moving all 4 extremities although limited with certain movement secondary to worsen discomfort but significantly improved since initial ED presentation status post epidural, strength remains moderately global decreased. Psychiatric: affect appears improved, comfortable appearing, normal, no acute evidence of depressive or anxiety feelings. Assessment and Plan: Please see hospital summary above. ABG / Lab / Microbiology Data Result Diagrams: 12/11/20 21:20 12/15/20 07:50 Laboratory: Laboratory Results - last 24 hr 12/15/20 07:50 Sodium 140 Potassium 4.3 Chloride 102 Carbon Dioxide 33.0 H Anion Gap 5 BUN 9 Creatinine 0.65 Estim Creat Clear Calc 91.69 Est GFR (MDRD) Af Amer 118 Est GFR (MDRD) Non-Af 98 BUN/Creatinine Ratio 13.8 Glucose 101 Calcium 9.2 Microbiology: Microbiology 12/15/20 17:00 SARS-CoV-2 Antigen (Rapid) - Final Mucosa - Nasopharyngeal Microbiology 12/15/20 17:00 Mucosa - Nasopharyngeal SARS-CoV-2 Antigen (Rapid) - Final D/C Instructions Please Follow Up With: Edward Mc MD Meaningful Use Info Meaningful Use Diagnoses (Choose all that apply): None applicable Discharge Plan Admission Admit Date/Time: 12/11/20 21:51 Primary Reason for Your Visit: Intractable back pain, compression fractures. Attending Provider: Kelly Rowland Primary Care Provider: Edward Mc Consulting Providers: Ashu Olvera ; Aletha Romero Discharge Orders/Prescriptions Prescriptions: New sennosides-docusate sodium [Stool Softener-Stimulant Laxat] 8.6-50 mg Tablet 2 tab PO BID PRN PRN (Reason: Constipation) 30 Days Qty: 60 RF: 0 potassium chloride [Klor-Con M20] 20 mEq Tablet,Er Particles/Crystals 40 meq PO DAILYCM 30 Days Qty: 60 RF: 0 metoprolol tartrate 25 mg Tablet 12.5 mg PO BID 30 Days Qty: 30 RF: 0 oxycodone 5 mg Tablet 5 mg PO Q4H PRN PRN (Reason: Pain Score 4-5) 5 Days Qty: 30 RF: 0 Continued buspirone 10 mg tablet 10 mg PO DAILY RF: 0 acetaminophen [Tylenol Extra Strength] 500 mg tablet 1,000 mg PO Q6H PRN (Reason: Pain) RF: 0 aripiprazole 10 MG tablet 10 mg PO DAILY RF: 0 denosumab 60 MG/ML syringe 60 mg SC [id number] RF: 0 multivitamin with folic acid 1 TABLET tablet 1 tab PO DAILYCM RF: 0 cholecalciferol (vitamin D3) [Vitamin D3] 25 mcg (1,000 unit) Capsule 25 mcg PO DAILY RF: 0 (DME) Lift Chair See Rx Instructions .Route .MEDSUPPLY Qty: 1 RF: 0 Discontinued oxycodone 5 mg tablet 5 mg PO BID PRN (Reason: Pain) RF: 0 Referrals / Follow Up: Aletha Romero MD [STAFF PHYSICIAN] - (Follow-up within 3-5 days to review future treatment plan options.) Edward Mc MD [Primary Care Provider] - (Follow-up in 1-2 days after SNF discharge and within 3-5 days of hospital discharge.) Disposition Disposition (needs filled in before D/C Order can be placed): Snf Facility Charges/Coding Visit Charges Inpatient E&M: 61470 Disch Hosp
[2020-12-16 08:47] VITALS: BP 109/65; PULSE 89; RESP 16; TEMP 36.6; O2SAT 95
[2020-12-16] MEDS: busPIRone 5 MG Tablet 10 MG PO (08:59)
[2020-12-16] MEDS: ARIPiprazole 10 MG Tablet PO (08:59)
[2020-12-16] MEDS: Potassium Chloride Oral Tablet 20 MEQ 40 MEQ PO (08:59)
[2020-12-16 09:00] VITALS: PULSE 89
[2020-12-16] MEDS: Metoprolol Tartrate 25 MG Tablet 12.5 MG PO (09:00)
--- NOTE | 2020-12-16 09:13 | NURSING ---
attempted to call wvm, 1st attempt
== END 2020-12-16 10:55 | disposition skilled nursing facility (03) | DRG 347 ==
LOC: ED 18:08 → MS3 12-12 07:10
PROVIDERS: Anesthesiology Pain Medicine; Internal Medicine; Admitting Provider Hospitalist; Emergency Provider Student in an Organized Health Care Education/Training Program; PCP Internal Medicine; Visit Provider Family Medicine
PROC: 3E0S3BZ Introduction of Anesthetic Agent into Epidural Space, Percutaneous Approach (ICD-10-PCS; CPT 62322; principal; 2020-12-15 12:25)
DX: M80.88XA Other osteoporosis with current pathological fracture, vertebra(e), initial encounter for fracture (principal); G89.29 Other chronic pain; E87.6 Hypokalemia; R62.7 Adult failure to thrive; E44.0 Moderate protein-calorie malnutrition; Z20.822 Contact with and (suspected) exposure to COVID-19; M19.90 Unspecified osteoarthritis, unspecified site; F31.9 Bipolar disorder, unspecified; F41.9 Anxiety disorder, unspecified; Z68.23 Body mass index [BMI] 23.0-23.9, adult; Z91.81 History of falling; Z79.899 Other long term (current) drug therapy; Z96.641 Presence of right artificial hip joint
CPT/HCPCS: 01992; 62323; 36415; 64483; 72020; 72072; 72100; 80048; 83735; 85025; 87426; 96361; 96372; 96374; 97110; 97162; 97166; 97530; 97535; 97802; 97803; 99218; 99251; 99285; J7030; J7120; A4216; G0378; G0463

== ENCOUNTER 2021-01-04 04:55 | Emergency (ER) | payer MEDICAID, SELFPAY ==
[2020-12-15 11:34] VITALS: BMI 23.1
[2021-01-04 04:56] VITALS: BP 145/98; PULSE 10; RESP 16; TEMP 36.9; O2SAT 94; BMI 24.1
--- NOTE | 2021-01-04 05:15 | ED.VIS.BACK ---
HPI History of Present Illness Chief Complaint: Back Informant: patient Onset/Context/Timing Onset: Yesterday Narrative Narrative: Patient presents via EMS from home worsening lower back pain while getting ready for bed at 10 PM last evening. History of compression fractures of her spine. She is just discharged from care home facility 8 days ago from [place]. Patient was hospitalist prior to that due to acute compression fractures seen by Dr. Romero and Dr. Olvera. She states she had a previous kyphoplasty of L5 in the last few months. She states there was plans of doing L2 the L4. Reviewing her records noted she had epidural injections as trials in the hospital which seemed to help from records. However she reports pain has consistently been there. She is on oxycodone 5 mg every 6 hours. She states she was going to start backing off to every 12 hours however pain in her back worsening this evening. States the same pain she has been dealing with however worsened. No radicular symptoms. No loss of bowel or bladder control. With increasing pain she was concerned therefore called EMS. She lives alone. Discussed she states that the pain is more controlled she would try to ambulate. She has no allergies. She is tolerated morphine in the past. Records also noted when she was transferred to care home facility she is supposed to follow-up with Dr. Romero. She did recall that she did see him 9 days ago in the office. States that they were planning upcoming surgery for kyphoplasty's. They tried to prescribe strong pain patches however not approved by insurance companies. She was on meloxicam previously however states she was told to stop taking them. She denies any gastric ulcer history or kidney injury. From records L5 kyphoplasty on November 10, 2020. L3 epidural steroid injection on December 15, 2020. Prior similar symptoms: Yes PFSH PFS Medical History Alcohol use Arthritis Compression fracture Depression Osteoporosis Scoliosis Home Medications aripiprazole 10 mg PO DAILY 03/05/19 [History Last Taken 11/07/20] denosumab 60 mg SC [id number] 05/28/19 [History Last Taken Unknown] multivitamin with folic acid 1 tab PO DAILYCM 05/28/19 [History Last Taken 11/07/20] buspirone 10 mg tablet 10 mg PO DAILY tab 06/25/19 [History Last Taken 11/07/20] acetaminophen 500 mg tablet 1,000 mg PO Q6H PRN 11/08/20 [History Last Taken 11/08/20 06:00] Lift Chair #1 ea 12/08/20 [Rx Last Taken Unknown] cholecalciferol (vitamin D3) [Vitamin D3] 25 mcg PO DAILY 12/11/20 [History Last Taken Unknown] metoprolol tartrate 12.5 mg PO BID 30 Days #30 tab 12/16/20 [Rx Last Taken Unknown] oxycodone 5 mg PO Q4H PRN PRN 5 Days #30 tab 12/16/20 [Rx Last Taken Unknown] potassium chloride [Klor-Con M20] 40 meq PO DAILYCM 30 Days #60 tab 12/16/20 [Rx Last Taken Unknown] sennosides-docusate sodium [Stool Softener-Stimulant Laxat] 2 tab PO BID PRN PRN 30 Days #60 tab 12/16/20 [Rx Last Taken Unknown] cyclobenzaprine [Flexeril] 10 mg PO BID 01/04/21 [History Last Taken Unknown] Allergy/AdvReac Type Severity Reaction Status Date / Time No Known Allergies Allergy Verified 01/04/21 05:00 Family History Other Heart disease Osteoporosis Surgical History History of hip replacement History of tubal ligation S/P kyphoplasty Social History Smoking Status: Never smoker alcohol intake: former substance use type: does not use what type of physical activity do you participate in: none ROS ROS ED Constitutional Constitutional ED: Denies chills, fever(s) or sweats Eyes Eyes: Denies change in vision ENT ENT ED: Denies dysphagia or sore throat Cardiovascular Cardiovascular: Denies chest pain, leg edema, palpitations or racing heartbeat Respiratory/Chest Respiratory/Chest: Denies cough, dyspnea or dyspnea on exertion Gastrointestinal Gastrointestinal: Denies abdominal pain, diarrhea, nausea or vomiting Genitourinary Genitourinary ED: Denies dysuria, hematuria or urinary frequency Musculoskeletal Musculoskeletal: Reports back pain; Denies extremity pain or neck pain Integumentary Denies rash or wounds Neurologic Neurologic: Denies headache(s), paresthesias or weakness EXAM Physical Exam Const Vital Signs: 01/04/21 04:56 Temperature 98.4 F Temperature Source Temporal Pulse Rate 10 L Respiratory Rate 16 Blood Pressure 145/98 H Blood Pressure Mean 113 Pulse Ox 94 Oxygen Delivery Method Room Air Positive well nourished and well developed General Appearance ED: well developed and NAD HEENT Reports moist mucous membranes normocephalic and atraumatic Eyes PERRL, EOMs intact bilaterally and conjunctivae normal General Eye ED: Yes normal appearance of both eyes Neck no lymphadenopathy and supple General: Negative for tenderness Chest Wall Chest: Negative for tenderness Resp normal respiratory effort and normal air movement Effort and Inspection: symmetric chest movement; Negative for respiratory distress Cardio regular rate, regular rhythm and no murmurs Peripheral Pulses: pulses 2+ throughout GI normal to inspection, nondistended, normoactive bowel sounds and non-tender Palpation: Negative for guarding or rebound tenderness present Back/Spine no CVA tenderness Back/Spine Narrative: Tender palpation lower lumbar spine, no step-offs. Straight leg test negative bilaterally. Extremity normal to inspection General Extremety ED: Negative for edema or tenderness General Extremity: Negative for edema Neuro oriented x3 and no sensory deficits noted Sensorium / Orientation: awake and alert Skin no rashes or lesions noted and no wounds MDM MDM MDM Narrative Medical decision making narrative: Patient with no radicular symptoms. Treated with 10 mg morphine subcu and Toradol 30 mg IM. Symptoms much more improved. She was able to ambulate with her walker. Discussed with patient about restarting her meloxicam daily. She states she has the medication at home. She has no contraindications from her history. She will call Dr. Romero's office today to discuss her planned surgical procedure. All questions answered. Discharge Plan Triage Chief Complaint: Back ED Provider: Addy Wu Dx/Rx/DC Orders Clinical Impression: Acute back pain, History of vertebral compression fracture Instructions: ED Back Pain (Acute or Chronic), ED Fracture, Vertebral Compression Prescriptions: No Action buspirone 10 mg tablet 10 mg PO DAILY RF: 0 acetaminophen [Tylenol Extra Strength] 500 mg tablet 1,000 mg PO Q6H PRN (Reason: Pain) RF: 0 aripiprazole 10 MG tablet 10 mg PO DAILY RF: 0 denosumab 60 MG/ML syringe 60 mg SC [id number] RF: 0 multivitamin with folic acid 1 TABLET tablet 1 tab PO DAILYCM RF: 0 cholecalciferol (vitamin D3) [Vitamin D3] 25 mcg (1,000 unit) Capsule 25 mcg PO DAILY RF: 0 sennosides-docusate sodium [Stool Softener-Stimulant Laxat] 8.6-50 mg Tablet 2 tab PO BID PRN PRN (Reason: Constipation) 30 Days Qty: 60 RF: 0 potassium chloride [Klor-Con M20] 20 mEq Tablet,Er Particles/Crystals 40 meq PO DAILYCM 30 Days Qty: 60 RF: 0 metoprolol tartrate 25 mg Tablet 12.5 mg PO BID 30 Days Qty: 30 RF: 0 oxycodone 5 mg Tablet 5 mg PO Q4H PRN PRN (Reason: Pain Score 4-5) 5 Days Qty: 30 RF: 0 cyclobenzaprine [Flexeril] 10 mg Tablet 10 mg PO BID RF: 0 (DME) Lift Chair See Rx Instructions .Route .MEDSUPPLY Qty: 1 RF: 0 Primary Care Provider: Edward Mc Referrals: Aletha Romero MD [STAFF PHYSICIAN] - 1 Day Edward Mc MD [Primary Care Provider] - Activity Restrictions/Additional Instructions: Restart your meloxicam daily. Call Dr. Romero's office today to discuss your procedure.
[2021-01-04] MEDS: Ketorolac 30 MG/ML Syringe IM (05:18)
[2021-01-04] MEDS: morphine 10 MG/ML Syringe SC (05:19)
== END 2021-01-04 06:08 | disposition home or self-care (01) ==
LOC: ED 05:19
PROVIDERS: Emergency Provider Emergency Medicine; PCP Internal Medicine
DX: M54.5 Low back pain (principal); M81.0 Age-related osteoporosis without current pathological fracture; M41.9 Scoliosis, unspecified; M19.90 Unspecified osteoarthritis, unspecified site; F32.9 Major depressive disorder, single episode, unspecified; Z79.899 Other long term (current) drug therapy
CPT/HCPCS: 96372; 99284

== ENCOUNTER 2021-01-12 05:59 | Day surgery (SDC) | payer MEDICAID, SELFPAY ==
[2021-01-12] VITALS (9 sets, daily range): BP systolic 117–144; BP diastolic 65–89; PULSE 95–116; RESP 16–18; TEMP 36–36.4; O2SAT 95–98; BMI 22.4
[2021-01-12] MEDS: Lactated Ringers 1,000 ML 100 ML IV ×3 (06:47→10:51)
--- NOTE | 2021-01-12 08:30 | RAD_ITS ---
CLINICAL HISTORY: Female, 60 years old. Back pain. PROCEDURE: KYPHOPLASTY - L3 vertebrae. FLUOROSCOPY TIME (if supplied): (1 minute and 27 seconds.) minutes/seconds. 5 images were obtained. TECHNIQUE: (All elements of maximal sterile barrier technique followed, including US elements as applicable) Fluoroscopic imaging provided for vertebroplasty of the L3 vertebrae. RAD/Spine 1 View Any Level IMPRESSION: Intraoperative fluoroscopic imaging provided for vertebroplasty of the L3 vertebrae. Electronically Signed: Pedro Timmons MD at 9:32 EDT , Service support ,
[2021-01-12] MEDS: Lidocaine 0.5% (50 ml) 50 ML Vial (08:52)
[2021-01-12] MEDS: Metaxalone 800 MG Tablet PO (11:31)
== END 2021-01-12 12:35 | disposition home or self-care (01) ==
LOC: SDC 06:01 → AC 06:01
PROVIDERS: PCP Internal Medicine; Referring Provider Anesthesiology Pain Medicine; Visit Provider Anesthesiology Pain Medicine
PROC: (CPT 22514; principal; 2021-01-12 07:15)
DX: M80.08XA Age-related osteoporosis with current pathological fracture, vertebra(e), initial encounter for fracture (principal); M51.36 Other intervertebral disc degeneration, lumbar region; M51.37 Other intervertebral disc degeneration, lumbosacral region; M19.90 Unspecified osteoarthritis, unspecified site; Z79.899 Other long term (current) drug therapy; Z96.641 Presence of right artificial hip joint
CPT/HCPCS: 22514; 72020; 76000; J7120; J2405

== ENCOUNTER 2021-01-20 12:12 | Emergency (ER) | payer MEDICAID, SELFPAY ==
[2021-01-16 14:00] VITALS: BMI 22.5
[2021-01-20 12:12] VITALS: BP 145/103; PULSE 121; RESP 16; O2SAT 97
[2021-01-20 12:13] VITALS: BP 145/103; PULSE 127; RESP 16; TEMP 36.6; O2SAT 96; BMI 23.5
--- NOTE | 2021-01-20 12:55 | ED.VIS.BACK ---
HPI History of Present Illness Chief Complaint: Back Detail of Chief Complaint: Back pain that became severe this morning Informant: patient Narrative Narrative: Patient has history of chronic back pain and sees pain management. Patient had kyphoplasty performed 8 days ago by . Patient was given a few days worth of oxycodone which she has run out of. This morning after waking up she turned a certain way and felt a sudden onset of pain in her back that initially felt like a pulled muscle. Now patient having pain with standing and trying to walk in the center of her back. She denies any pain rating down her legs. She denies weakness in extremities. EMS was called because she had a hard time getting up and moving around. Patient states last time she had severe pain like this she was seen in the ER was given morphine and anti-inflammatory and and was able to walk with her walker. Patient is scheduled to see her pain management doctor next week. Prior similar symptoms: Yes [facility] Medical History (Updated 01/20/21 @ 14:[address] Althea Gaitan, DO) Alcohol use Anxiety Arthritis Bipolar disorder Compression fracture Debility Depression Difficulty swallowing Elevated blood pressure reading Injury of head and neck Non-smoker Osteoporosis Pain at injection site Scoliosis Walker as ambulation aid Wears contact lenses Home Medications aripiprazole 10 mg PO DAILY 03/05/19 [History Last Taken 11/07/20] denosumab 60 mg SC [id number] 05/28/19 [History Last Taken Unknown] buspirone 10 mg tablet 10 mg PO DAILY tab 06/25/19 [History Last Taken 11/07/20] acetaminophen 500 mg tablet 1,000 mg PO Q6H 11/08/20 [History Last Taken 11/08/20 06:00] Lift Chair #1 ea 12/08/20 [Rx Last Taken Unknown] sennosides-docusate sodium [Stool Softener-Stimulant Laxat] 2 tab PO BID PRN PRN 30 Days #60 tab 12/16/20 [Rx Last Taken Unknown] cyclobenzaprine [Flexeril] 10 mg PO DAILY 01/04/21 [History Last Taken Unknown] calcium carbonate-vitamin D3 [Calcium 600 with Vitamin D3] 1 tab PO DAILY 01/10/21 [History Last Taken Unknown] meloxicam [Mobic] 7.5 mg PO DAILY 01/10/21 [History Last Taken Unknown] multivitamin 1 cap PO DAILY 01/10/21 [History Last Taken Unknown] oxycodone 5 mg PO Q12H 01/10/21 [History Last Taken Unknown] oxycodone-acetaminophen 1 tab PO Q6H PRN PRN 3 Days #12 tablet 01/20/21 [Rx Last Taken Unknown] Allergy/AdvReac Type Severity Reaction Status Date / Time No Known Allergies Allergy Verified 01/20/21 12:13 Family History Other Heart disease Osteoporosis Surgical History (Updated 01/20/21 @ 12:18 by John Vo) History of tubal ligation Hx of total hip arthroplasty S/P kyphoplasty Social History Smoking Status: Never smoker alcohol intake: former substance use type: does not use what type of physical activity do you participate in: none ROS ROS ED Constitutional Constitutional ED: Reports systems reviewed and no addt'l complaints, except as documented; Denies body ache(s), change in weight or chills Eyes Eyes: Denies acute decrease in peripheral vision, change in vision, double vision or loss of vision ENT ENT ED: Reports none; Denies ear pain, lip swelling, loss taste/smell, neck pain, otalgia or sore throat Cardiovascular Cardiovascular: Reports none; Denies abdominal pain, chest pain with activity, leg edema, lightheadedness, palpitations, rapid heart rate or syncope Respiratory/Chest Respiratory/Chest: Reports none; Denies change in mental status, dry cough, dyspnea, hemoptysis, shortness of breath at rest or shortness of breath with exertion Gastrointestinal Gastrointestinal: Reports none; Denies abdominal pain, change in stool character, diarrhea, hematemesis, hematochezia, melena, rectal bleeding or vomiting Genitourinary Genitourinary ED: Reports none; Denies abdominal discomfort, anuria, dysuria, genital pain or polyuria Musculoskeletal Musculoskeletal: Reports back pain Integumentary Reports none; Denies abscess or rash Neurologic Neurologic: Reports none; Denies abnormal gait, confusion, focal weakness, frequent falls, headache(s), loss of vision, numbness, paresthesias, radicular pain, vertigo or weakness Psychiatric Psychiatric: Reports systems reviewed and no addt'l complaints, except as documented and none; Denies behavioral changes, confusion, difficulty concentrating, hallucinations, suicidal ideation, tactile hallucinations or visual hallucinations Endocrine Endocrinology: Denies none, cold intolerance, excessive sweating, fatigue or heat intolerance Hematologic/Lymphatic Hematologic/Lymphatic: Reports none; Denies anemia, easy bleeding or easy bruising Allergic/Immunologic Allergic/Immunologic ED: Denies as per HPI, none, lip swelling, mouth swelling, throat swelling, tongue swelling or hives EXAM Physical Exam Const Vital Signs: 01/20/21 12:12 01/20/21 12:13 Temperature 97.9 F Temperature Source Oral Pulse Rate 121 H 127 H Respiratory Rate 16 16 Blood Pressure 145/103 H 145/103 H Blood Pressure Mean 117 117 Pulse Ox 97 96 Oxygen Delivery Method Room Air Room Air Positive well nourished and well developed General Appearance ED: well developed and NAD HEENT Reports TM's clear and moist mucous membranes normocephalic and atraumatic; Negative for trauma or tenderness Tympanic Membrane ED: Yes TM's clear Eyes PERRL and EOMs intact bilaterally General Eye ED: Negative for pale conjunctiva or scleral icterus Neck no lymphadenopathy, supple and no JVD General: Negative for tenderness Chest Wall inspection of chest normal and palpation of chest normal Chest: Negative for tenderness Resp normal respiratory effort and clear to auscultation bilaterally Effort and Inspection: Negative for respiratory distress or pain with movement Auscultation: Negative for rhonchi, wheezes or diminished lung sounds Cardio regular rate, regular rhythm, S1 normal heart sound, S2 normal heart sound and no murmurs Peripheral Pulses: pulses 2+ throughout GI normal to inspection, nondistended, normoactive bowel sounds, soft to palpation, non-tender, non-distended and no masses Back/Spine no CVA tenderness and no thoracic nor lumbar tenderness Back/Spine Narrative: Evaluation of her back reveals no significant tenderness over thoracic or lumbar spine. She has negative straight leg raises. Deep tendon reflexes are plus 2 out of 4 bilaterally at the patella and Achilles. Patient has normal sensation to light touch. Neurovascularly intact distally. Extremity normal to inspection General Extremety ED: Negative for edema General Extremity: Negative for edema Neuro oriented x3, CN's II-XII intact bilaterally, no sensory deficits noted and gait normal Sensorium / Orientation: awake, alert, oriented to person, oriented to place and oriented to time Motor Exam: strength 5/5 throughout and strength abnormal Psych mental status grossly normal Skin no rashes or lesions noted and no wounds MDM MDM MDM Narrative Medical decision making narrative: Patient had an IV line established on arrival. She was medicated with morphine and Zofran. She did have good pain relief with that. I will attempt to contact her pain management physician as she does have an appointment to see him in 3 days. Plan will be to write her prescription for a few oxycodone until she can follow-up with him. Radiography Diagnostic Testing: Radiology Impression Lumbar Spine X-Ray 01/20/21 13:05 IMPRESSION: 1. No acute osseous abnormalities. 2. Kyphoplasty of L3 and L5. at 1346 Reported and signed by: Nathaniel De La Fuente MD Electronically Signed: Nathaniel De La Fuente MD at 13:45 EDT Tel , Service support , X-rays of the lumbar spine obtained showed prior kyphoplasty at L3 L5 and degenerative changes. Radiology was in agreement. No significant changes noted otherwise. Discharge Plan Triage Chief Complaint: Back ED Provider: Althea Gaitan Dx/Rx/DC Orders Clinical Impression: Acute exacerbation of chronic low back pain Instructions: ED Back Pain (Acute or Chronic) Prescriptions: New oxycodone-acetaminophen [oxycodone-acetaminophen] 1 TABLET tablet 1 tab PO Q6H PRN PRN (Reason: Pain) 3 Days Qty: 12 RF: 0 No Action buspirone 10 mg tablet 10 mg PO DAILY RF: 0 acetaminophen [Tylenol Extra Strength] 500 mg tablet 1,000 mg PO Q6H RF: 0 aripiprazole 10 MG tablet 10 mg PO DAILY RF: 0 denosumab 60 MG/ML syringe 60 mg SC [id number] RF: 0 sennosides-docusate sodium [Stool Softener-Stimulant Laxat] 8.6-50 mg Tablet 2 tab PO BID PRN PRN (Reason: Constipation) 30 Days Qty: 60 RF: 0 cyclobenzaprine [Flexeril] 10 mg Tablet 10 mg PO DAILY RF: 0 meloxicam [Mobic] 7.5 mg Tablet 7.5 mg PO DAILY RF: 0 calcium carbonate-vitamin D3 [Calcium 600 with Vitamin D3] 600 mg(1,500mg) -200 unit Tablet 1 tab PO DAILY RF: 0 multivitamin Capsule 1 cap PO DAILY RF: 0 oxycodone 5 mg tablet 5 mg PO Q12H RF: 0 (DME) Lift Chair See Rx Instructions .Route .MEDSUPPLY Qty: 1 RF: 0 Primary Care Provider: Edward Mc Referrals: Aletha Romero MD [STAFF PHYSICIAN] - 3-5 Days Edward Mc MD [Primary Care Provider] - Disposition Disposition: Home, Self Care
--- NOTE | 2021-01-20 13:05 | RAD_ITS ---
EXAM: XR LUMBOSACRAL SPINE, 2 OR 3 VIEWS : 1960 CLINICAL INDICATION: pain TECHNIQUE: Frontal and lateral views of the lumbar spine and sacrum. This report was created using [employer] report [employer] technology. COMPARISON: 12/11/2020 FINDINGS: VERTEBRAE: Since reference examination there has been a kyphoplasty of L3. Kyphoplasty of L5 is unchanged. There is mild superior endplate depression of L2 which is stable. Preserved vertebral body height. No fracture. No spondylolisthesis. Preservation of the normal lumbar lordosis. No significant facet arthropathy. DISC SPACES: No acute findings. Disc spaces are maintained. GASTROINTESTINAL TRACT: Unremarkable as visualized. Included bowel gas pattern is non-obstructive. RAD/Lumbar Spine 2 or 3 Views IMPRESSION: 1. No acute osseous abnormalities. 2. Kyphoplasty of L3 and L5. at 1346 Reported and signed by: Nathaniel De La Fuente MD Electronically Signed: Nathaniel De La Fuente MD at 13:45 EDT Tel , Service support ,
[2021-01-20] MEDS: Ketorolac 15 MG/ML Vial IV (13:30)
[2021-01-20] MEDS: Morphine 4 MG/ML Syringe IV (13:30)
[2021-01-20] MEDS: Ondansetron 4 MG/2 ML Vial IV (13:30)
--- NOTE | 2021-01-20 14:33 | ED.RN ---
LEFT MESSAGE FOR DR TORRES AT [id number]
[2021-01-20 15:01] VITALS: BP 118/74; PULSE 72; RESP 14; O2SAT 97
== END 2021-01-20 15:47 | disposition home or self-care (01) ==
PROVIDERS: Emergency Provider Emergency Medicine; PCP Internal Medicine
DX: M54.5 Low back pain (principal); G89.29 Other chronic pain; M19.90 Unspecified osteoarthritis, unspecified site; F31.9 Bipolar disorder, unspecified; F41.9 Anxiety disorder, unspecified; Z79.1 Long term (current) use of non-steroidal anti-inflammatories (NSAID); Z79.899 Other long term (current) drug therapy
CPT/HCPCS: 72100; 96374; 96375; 99283; A4216; J2405

== ENCOUNTER 2021-03-23 14:26 | Day surgery (SDC) | payer MEDICAID, SELFPAY ==
[2021-03-23 14:50] VITALS: PULSE 97; RESP 16; TEMP 37.1; O2SAT 96; BMI 22.2
[2021-03-23] MEDS: Lactated Ringers 1,000 ML 100 ML IV (15:18)
[2021-03-23] MEDS: Cefazolin 2 GM in 0.9% Normal Saline 100 ML IV (16:34)
--- NOTE | 2021-03-23 16:45 | RAD_ITS ---
STUDY: X-RAY - LUMBAR SPINE REASON FOR EXAM: Female, 61 years old. KYPHOPLASTY, L1 TECHNIQUE: 6 fluoroscopic view(s) of the lumbar spine were obtained. COMPARISON: 02/05/2021 RAD/Spine 1 View Any Level IMPRESSION: Placement of cement into 2 adjacent lumbar vertebral bodies. Electronically Signed: Maxim Maldonado MD at 2:59 EDT Tel , Service support ,
[2021-03-23] MEDS: Lidocaine 1% /Epi 1:100 (50ml) 50 ML VIAL (17:25)
[2021-03-23] MEDS: Bupivacaine 0.25% 30 ML Vial (17:26)
[2021-03-23 17:45] VITALS: BP 144/95; PULSE 114; RESP 16; TEMP 36.6; O2SAT 94
[2021-03-23 18:00] VITALS: BP 123/79; PULSE 113; RESP 16; O2SAT 92
[2021-03-23 18:20] VITALS: BP 138/85; PULSE 115; RESP 16; TEMP 36.5; O2SAT 94
[2021-03-23 18:50] VITALS: BP 148/97; PULSE 133; RESP 16; O2SAT 91
== END 2021-03-23 19:16 | disposition home or self-care (01) ==
LOC: SDC 14:27 → AC 14:29
PROVIDERS: PCP Internal Medicine; Visit Provider Anesthesiology Pain Medicine
PROC: (CPT 22514; principal; 2021-03-23 15:45)
DX: M80.08XA Age-related osteoporosis with current pathological fracture, vertebra(e), initial encounter for fracture (principal); M51.16 Intervertebral disc disorders with radiculopathy, lumbar region; M51.17 Intervertebral disc disorders with radiculopathy, lumbosacral region; M19.90 Unspecified osteoarthritis, unspecified site; F31.9 Bipolar disorder, unspecified; F41.9 Anxiety disorder, unspecified; Z79.899 Other long term (current) drug therapy; Z96.641 Presence of right artificial hip joint
CPT/HCPCS: 01936; 22514; 22515; 72020; 76000; J7120; J2405

== ENCOUNTER 2021-07-17 14:48 | Outpatient (CLI) | payer MEDICAID, SELFPAY ==
[2021-07-17 16:47] LABS: Amphetamine Urine VISTA NEGATIVE (<1000 ng/mL); Barbiturate Urine VISTA NEGATIVE (< 200 ng/mL); Benzodiazepine Urine VISTA NEGATIVE (< 200 ng/mL); Cocaine Urine VISTA NEGATIVE (< 300 ng/mL); Ecstacy Urine VISTA NEGATIVE (< 500 ng/mL); Methadone Urine VISTA NEGATIVE (< 300 ng/mL); PCP Urine VISTA NEGATIVE (< 25 ng/mL); THC Urine VISTA NEGATIVE (< 50 ng/mL); Vista UDS pH Range 5
== END 2021-07-17 23:59 | disposition short-term general hospital (02) ==
LOC: LAB 14:50
PROVIDERS: PCP Internal Medicine; Visit Provider Anesthesiology Pain Medicine
DX: F11.20 Opioid dependence, uncomplicated (principal)
CPT/HCPCS: 80307

== ENCOUNTER 2021-07-24 10:00 | Outpatient (CLI) | payer MEDICAID, SELFPAY ==
[2021-07-24 12:47] LABS: Anion Gap 13 (5-15); BUN 14 mg/dL (7-18); BUN/Creat Ratio 19.6 RATIO (10-20); Calcium,Total 9.1 mg/dL (8.5-10.1); Chloride 99 mmol/L (98-107); Creatinine, Serum 0.72 mg/dL (0.55-1.02); EST Glomerular Filtration Rate 88 mL/min (>60); Est Glom Filt Rate - Afr Amer 106 mL/min (>60); Glucose 121 mg/dL (74-106); Potassium 3.2 mmol/L (3.5-5.1); Sodium Level 139 mmol/L (136-145)
[2021-07-24 12:52] LABS: Vitamin D,25 Hydroxy 29.8 ng/mL
== END 2021-07-24 23:59 | disposition short-term general hospital (02) ==
LOC: BIMLAB 10:01
PROVIDERS: PCP Internal Medicine; Visit Provider Internal Medicine
DX: M81.0 Age-related osteoporosis without current pathological fracture (principal)
CPT/HCPCS: 36415; 80048; 82306

== ENCOUNTER 2021-08-21 12:23 | Outpatient (CLI) | payer MEDICAID, SELFPAY ==
--- NOTE | 2021-08-21 12:24 | BI_ITS ---
MAMMOGRAPHY - BILATERAL SCREENING REASON FOR EXAM: Female, 61 years old. Routine annual screening examination. PERTINENT HISTORY: Non-contributory. TECHNIQUE: Digital bilateral breast mesha (3D mammographic acquisition) in the CC and MLO projections. 2-D mediolateral oblique (MLO) and craniocaudad (CC) views of both breasts were obtained. CAD: Full Field Digital Mammography with Computer Added Detection was performed. COMPARISON: Comparison is made with prior study dated 03/03/2019. FINDINGS: Breast Composition: There are scattered areas of fibroglandular density. There are no dominant masses or suspicious calcifications. Stable asymmetry of breast tissue where more breast tissue is seen in the retroareolar region of the right breast as compared to the left side. No other significant abnormalities are identified. There has been no significant change since the prior study. BI/SCRN MAMM (CAD)W/MESHA BILAT IMPRESSION: Stable bilateral screening mammogram. Yearly follow-up mammogram recommended. (A) ASSESSMENT CATEGORY: BIRADS Category 2: Benign. A letter regarding these results will be sent to the patient by the facility within 30 days. Approximately 10% of breast cancers are not detected by mammography. A normal mammogram should not delay biopsy of a clinically suspicious abnormality. [id number] Electronically Signed: Pedro Timmons MD at 13:52 EST ,
--- NOTE | 2021-08-21 12:30 | BD_ITS ---
STUDY: DUAL ENERGY X-RAY ABSORPTIOMETRY / DXA REASON FOR EXAM: Female, 61 years old. Osteoporosis TECHNIQUE: Bone Mineral Density (BMD) measurements of the left forearm was obtained. COMPARISON: Comparison is made with prior study dated 03/03/2021. FINDINGS: Right Forearm: g/cm2 ( ) / T-score ( ) / Z-score ( ) Left Forearm: g/cm2 (0.480) / T-score (-1.8) / Z-score (-0.4) BD/Dexa Bone Density/Append Skel IMPRESSION: The patient is considered osteopenic as outlined below according to World Douglas Organization (WHO) criteria with a moderate fracture risk. Reference Information: The T-score is the number of standard deviations above or below the standard which is normal for young adults at their peak bone mineral density. The World Health Organization (WHO) interprets the T-scores as follows: Above -1 Normal bone density Between -1 and -2.5 Osteopenia Equal to / or below -2.5 Osteoporosis As a practical clinical guideline, osteopenia may be graded as follows: Mild -1 through -1.5 Moderate -1.6 through -2.0 Severe -2.1 through -2.4 The Z-score is the number of standard deviations above or below age-matched controls. A Z-score of less than -1.5 would be considered abnormal. References: 1. NIH Osteoporosis and Related Bone Diseases www osteo.org 2. International Society for Clinical Densitometry www iscd.org 3. National Osteoporosis Foundation www nof.org Electronically Signed: Pedro Timmons MD at 14:03 EST ,
== END 2021-08-21 23:59 | disposition home or self-care (01) ==
LOC: OPBI 12:23
PROVIDERS: PCP Internal Medicine; Referring Provider Internal Medicine; Visit Provider Internal Medicine
DX: Z12.31 Encounter for screening mammogram for malignant neoplasm of breast (principal); M81.0 Age-related osteoporosis without current pathological fracture
CPT/HCPCS: 77063; 77067; 77081

== ENCOUNTER 2021-09-14 08:30 | Outpatient (RCR) | payer MEDICAID, SELFPAY ==
--- NOTE | 2021-07-19 11:17 | HP.PTEVAL_ITS ---
Patient's Visit Information PRASHANT MAZARIEGOS is a 61 year old F referred to Physical Therapy by Dr. Edward Mc MD with a diagnosis of DORSALGIA. Date of Evaluation: 07/19/21 Physical Therapist: Aida Valdovinos, PT, Cert MDT - Visit Plan Frequency: 2-3x /Week Duration: 4-6 Weeks Plan: START THERAPY VERY SLOW AND NON AGGRESSIVE. *OSTEOPOROSIS WITH H/O MULTIPLE VERTEBRAL FX'S*. POSTURE CORRECTION/STRENGTHENING, INSTRUCTION IN APPROPRIATE BODY MECHANICS AND ACTIVITY MODIFICATIONS. DLS WITH A NEUTRAL SPINE TOLERATED. NORBERT LE ROM, STRETCHING AND STRENGTHENING. HEP INSTRUCTION. - Subjective Work/Leisure: UNEMPLOYEED. 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 Disability: NO. Present symptoms: NORBERT LOW BACK PAIN. PATIENT DENIES NORBERT LE SX'S. STATES SHE CAN'T STAND UP STRAIGHT - ESPECIALLY WALKING. Present since: GRADUAL WORSENING OF CHRONIC BACK PAIN. Pain Scale: WORST 5/10, LEAST 2/10. Currently: 2/10. Commenced as a result of: NO APPARENT REASON OTHER THAN DETERIORATION BUT ALSO PICKED UP 2 HEAVY BOXES OF MAGAZINES AND BACK BUCKLED AT WORK A FEW YEARS AGO (APPROX 2018). Symptoms at onset: BACK PAIN. Worse: STANDING TO DO THINGS LIKE COOKING, STANDING FOR EVEN JUST A FEW MINUTES. WALKING. Better: SITTING IN RECLINER LIFT CHAIR, SLEEPING/LYING IN BED. Disturbed sleep: YES - NEEDING TO TURN OVER BECAUSE GETS STIFF. Previous history/Previous treatment: PAIN MGMT WITH DR. TORRES. Treatment this episode: REPORTS HAVING AN INJECTION WITH DR. TORRES ABOUT 3 WEEKS AGO THAT HAS HELPED HER BACK PAIN. CONSULT WITH DR. ESTRELLA. PATIENT REPORTS SHE HAD 2 HOME PT VISITS IN ABOUT JANUARY [address] TORRES STOPPED IT NOT WANTING HER TO HAVE PT. AQUATIC THERPAY A LONG TIME AGO AND LIKED IT BUT DOESN'T FEEL UP TO IT NOW. Coughing/sneezing/straining: NO. Gait: I HAVE A HARD TIME AND I GET MORE AND MORE BENT OVER. I GET REAL SHORT OF BREATHE AND I AM OUT OF SHAPE. NO ASSISTIVE DEVICES SINCE SEPT KYPHOPLASTY. Difficulty initiating urination: PATIENT DENIES BOWEL AND BLADDER DYSFUNCTION EXCEPT URINARY INCONTINENCE AT TIMES. Accidents: FALL 3 YEARS AGO - STATES SHE BROKE SEVERAL BONES IN HER BACK AND NECK. NO SURGERY AT THAT TIME. Unexplained weight loss: NO. Imaging: STUDY: X-RAY - LUMBAR SPINE. REASON FOR EXAM: Female, 61 years old. Pain -- AP/LAT LUMBAR. TECHNIQUE: 2 view(s) of the lumbar spine were obtained. COMPARISON: Comparison is made with prior examination dated 01/20/2021. . FINDINGS: Normal lumbar lordosis. There is no substantial scoliosis. There is a. normal alignment of the vertebrae. Once again, the patient is status post vertebroplasty of the L3 and L5. vertebrae. This is unchanged. Loss of white of the L3 and L5 vertebrae. Mild loss of height of the superior endplate of the L2 vertebrae. The soft tissue structures are unremarkable. . RAD/Lumbar Spine 2 or 3 Views. IMPRESSION: Status post vertebroplasty with loss of height of the lumbar vertebrae as. described. . Electronically Signed: Pedro Timmons MD. at 22:15 EDT. PMH: OSTEOPOROSIS, BIPOLAR DISORDER, CHRONIC BACK PAIN. Recent major surgery: KYPHOPLASTY L1 03/23/21 - Objective Sitting/Standing Posture: POOR. EXCESSIVE TRUNK FLEXION. SCOLIOSIS. Active Correction of posture: WORST. Other Observations: THIS PATIENT AMBULATES INDEP'LY INTO PT WITHOUT ANY ASSISTIVE DEVICES OR LOB BUT WITH DECREASED CADANCE AND EXCESSIVE TRUNK FLEXION. PATIENT IS UNABLE TO TRANSITION FROM SIT TO STAND WITHOUT UE ASSIST. Motor deficit: NORBERT LE'S GROSSLY 4-/5. Sensory deficit: NORBERT LE LIGHT TOUCH SENSATION INTACT AND SYMMETRICAL. ROM deficit: TIGHT NORBERT LE HIP FLEXORS, HS'S AND GASTROC SOLEUS COMPLEX'S. Dural Signs: NEGATIVE NORBERT LE'S. Lumbar mvmt loss: flex - MOD. ext - LIAM. R SG - LIAM. L SG - LIAM. Core strength: POOR. Palpation: PATIENT DENIES BACK/SPINE TENDERNESS WITH PALPATION TODAY BUT REPORTS SHE JUST REALLY DOESN'T LIKE HAVING HER BACK TOUCHED. TREATMENT: NEUROMUSCULAR REEDUCATION - RETRAINING OF MVMT AND POSTURE FOR SITTING, LYING AND STANDING ACTIVITIES. - Balance/Special Test Scores Oswestry Low Back Score: 30 - Goals Goal 1:: DECREASE C/O BACK PAIN Goal Time Frame: 4-6 Weeks Goal 2:: IMPROVE PERSONAL CARE, LIFTING, WALKING, SITTING, STANDING, SLEEP, SOCIAL LIFE, TRAVEL AND HOMEMAKING FUNCTION. Goal Time Frame: 4-6 Weeks Goal 3:: INSTRUCT IN PROPHYLAXIS Goal Time Frame: 4-6 Weeks - Anticipated Interventions Patient/Client Instruction: Educate patient on: Condition, Plan of Care, Risk Factors For the Purpose of:: To improve self management Therapeutic Exercise to Include: Strength training, Body mechanics, Postural training, Flexibilty training, Neuromotor development, In an aquatic setting, Dynamic Lumbar Stabilization For the Purpose of:: To decrease pain, To increase ROM, To improve muscle performance and motor function, To increase tolerance to activity/condition/position, To improve ability of physical actions for home/community/work/leisure Thank you for the opportunity to evaluate your patient. For Medicare and Medicare HMO plans, please review the plan of care and approve it. It will need to be FAXED BACK to us at [phone] for Medicare purposes. For Medicare only, by signing this I certify the plan of care. Please let me know if there are questions or concerns regarding this plan of care. Physician Signature: Date:
--- NOTE | 2021-09-14 12:45 | HP.PTDCSUM ---
It has been my pleasure to treat PRASHANT MAZARIEGOS referred by Dr. Edward Mc MD, with the diagnosis of DORSALGIA for a total of 13 visit(s). Discharge Date: Please see the following information for a summary of their discharge status. Subjective: NO PAIN. WEAKNESS. SPINE CAUSES HER TO WALK BENT FORWARD AND IT IS EXHAUSTING. FOLLOW UP WITH DR. TORRES PENDING NEXT WEEK. PATIENT REPORTS SHE DOESN?T WANT SHOTS ANYMORE. HAS HAD TWO INJECTIONS AND 3 KYPHOPLATIES IN THE PAST. MOST RECENT PROCEEDURE WAS AN INJECTION AND IT WAS ABOUT 2 MONTHS AGO WITH NE. PATIENT IS HOPING PHYSICAL THERAPY WILL BE ENOUGH AND THE EX?S AT HOME ARE HELPFUL. WOULD LIKE TO STOP PT AND CONTINUE WITH HEP WITH THE HOPE THAT SHE WILL BUILD UP STRENGTH OVER TIME. 85%. ?I FEEL A LOT BETTER AND I AM MORE CONFIDENT TOO?. Low back Pain Intensity (Out of 10): 0 % Improvement: 85 Objective/Function: PATIENT WAS SEEN TODAY FOR RE-ASSESSMENT OF PROGRESS TOWARD THE SET PT GOALS AND THE NEED FOR FURTHER PHYSICAL THERAPY VS READINESS FOR DISCHARGE. PATIENT WOULD LIKE TO CONTINUE WITH INDEP EX AT THIS TIME. SHE IS TOLERATING A LIGHT HEP WELL AND REPORTS FEELING BETTER AND MORE CONFIDENT BUT THERE ARE NO SIGNIFICANT OBJECTIVE CHANGES COMPARED TO INITIAL EVAL. UPON EXAM TODAY: Sitting/Standing Posture: POOR. EXCESSIVE TRUNK FLEXION. SCOLIOSIS. Active Correction of posture: WORST. Other Observations: THIS PATIENT AMBULATES INDEP'LY INTO PT WITHOUT ANY ASSISTIVE DEVICES OR LOB BUT WITH DECREASED CADANCE AND EXCESSIVE TRUNK FLEXION. PATIENT IS UNABLE TO TRANSITION FROM SIT TO STAND WITHOUT UE ASSIST. Motor deficit: NORBERT LE'S GROSSLY 4-/5. Sensory deficit: NORBERT LE LIGHT TOUCH SENSATION INTACT AND SYMMETRICAL. ROM deficit: TIGHT NORBERT LE HIP FLEXORS, HS'S AND GASTROC SOLEUS COMPLEX'S. Dural Signs: NEGATIVE NORBERT LE'S. Lumbar mvmt loss: flex - MOD. ext - LIAM. R SG - LIAM. L SG - LIAM. Core strength: POOR. Goal 1:: DECREASE C/O BACK PAIN Goal Progress: Goal Met Goal 2:: IMPROVE PERSONAL CARE, LIFTING, WALKING, SITTING, STANDING, SLEEP, SOCIAL LIFE, TRAVEL AND HOMEMAKING FUNCTION. Goal Progress: Not Progressing Goal 3:: INSTRUCT IN PROPHYLAXIS Goal Progress: Goal Met Plan: D/C TO HEP. PATIENT AGREEABLE. If there are questions or concerns regarding this patient's physical therapy, please feel free to call me at [phone]. Thank you for the referral of this patient. Sincerely, Aida Valdovinos PT, Cert MDT Balance/Gait/Functional tests - Balance/Special Test Scores Oswestry Low Back Score: 24
== END 2021-09-14 12:54 | disposition home or self-care (01) ==
LOC: PT 08:30
PROVIDERS: PCP Internal Medicine; Referring Provider Internal Medicine; Visit Provider Internal Medicine
DX: M54.9 Dorsalgia, unspecified (principal); G89.29 Other chronic pain
CPT/HCPCS: 97110; 97112; 97162; 97164; 97530

== ENCOUNTER 2021-09-16 01:28 | Inpatient (IN) | payer MEDICAID, SELFPAY ==
[2021-09-16] VITALS (8 sets, daily range): BP systolic 106–148; BP diastolic 70–103; PULSE 97–128; RESP 10–18; TEMP 36.8–37.3; O2SAT 96–99; BMI 27.8; BMI 27.6
--- NOTE | 2021-09-16 01:59 | ED.VIS.GI ---
HPI HPI - GI History of Present Illness Chief Complaint: Nausea/Vomiting Informant: patient Abdominal Pain/Flank Pain Onset: Hours (4-5) Context: Gradual Onset Timing: Continuous Quality: Aching Location: Epigastric Current Severity: Moderate Maximum Severity: Severe Worsened by: Food Relieved by: Nothing Nausea/Vomiting/Emesis GI Symptom: Positive for Nausea and Vomiting Onset: Today Quality: Positive for Nonbilious; Negative for Blood streaks, Coffee ground and Hematemesis Severity: Severe Diarrhea/Melena/Hematochezia GI Symptom: Positive for Diarrhea; Negative for Melena and Hematochezia Onset: Today Stool Quality: Positive for Loose; Negative for Black and BRB per rectum Severity: Mild Associated Symptoms Associated Symptoms: Negative for Dysuria, Frequency, Hematuria and Urgency Narrative Narrative: Patient started having abdominal pain tonight, she drinks a lot of alcohol and her last drink was yesterday, she feels like she may be getting pancreatitis, she has had that before associated with alcohol. Pain was in her low back earlier but only transiently and not now. No chest discomfort or trouble breathing. She feels very nauseated. When asked if she is an alcoholic, she states I guess I am but has never been formally diagnosed, and has never been diagnosed with any liver problems that she knows of. She had a tubal ligation remotely but no other abdominal surgeries in the past. She has not had a lot of episodes of pancreatitis in the past according to her. [facility] Medical History Alcohol use Anxiety Bipolar disorder Compression fracture Debility Depression Difficulty swallowing Elevated blood pressure reading Flu vaccine need Health care maintenance Injury of head and neck Non-smoker Osteoporosis Pain at injection site Preventative health care Scalp psoriasis Scoliosis Walker as ambulation aid Wears contact lenses Home Medications aripiprazole 10 mg PO DAILY 03/05/19 [History Last Taken 11/07/20] denosumab 60 mg SC [id number] 05/28/19 [History Last Taken Unknown] buspirone 10 mg tablet 10 mg PO DAILY tab 06/25/19 [History Last Taken 11/07/20] acetaminophen 500 mg tablet 1,000 mg PO Q6H 11/08/20 [History Last Taken 11/08/20 06:00] Lift Chair #1 ea 12/08/20 [Rx Last Taken Unknown] tizanidine 4 mg capsule 4 mg PO BID PRN #60 cap 04/24/21 [Rx Last Taken Unknown] meloxicam 7.5 mg tablet 7.5 mg PO DAILY #30 tab 07/23/21 [Rx Last Taken Unknown] cholecalciferol (vitamin D3) 125 mcg (5,000 unit) capsule 125 mcg PO DAILY #90 cap 07/24/21 [Rx Last Taken Unknown] oxycodone-acetaminophen 5 mg-325 mg tablet 1 tab PO Q8H PRN 07/24/21 [History Last Taken Unknown] potassium chloride 20 mEq tablet,extended release 20 meq PO DAILY #90 tab 07/24/21 [Rx Last Taken Unknown] multivitamin 1 tab PO QAM #90 tab 07/26/21 [Rx Last Taken Unknown] clobetasol 0.05 % shampoo 1 applic TOPICAL QHS 28 Days #118 ml 08/28/21 [Rx Last Taken Unknown] Allergy/AdvReac Type Severity Reaction Status Date / Time No Known Allergies Allergy Verified 07/24/21 09:15 Family History Other Heart disease Osteoporosis Surgical History History of back surgery History of tubal ligation History of wisdom tooth extraction Hx of total hip arthroplasty S/P kyphoplasty Social History Smoking Status: Never smoker alcohol intake: former substance use type: does not use what type of physical activity do you participate in: none ROS ROS ED Constitutional Constitutional ED: Reports malaise; Denies chills or fever(s) Eyes Eyes: Denies change in vision or diplopia ENT ENT ED: Denies rhinorrhea or sore throat Cardiovascular Cardiovascular: Denies chest pain or palpitations Respiratory/Chest Respiratory/Chest: Denies cough or dyspnea Gastrointestinal Gastrointestinal: Reports as per HPI, abdominal pain, diarrhea, nausea and vomiting Genitourinary Genitourinary ED: Denies dysuria or hematuria Musculoskeletal Musculoskeletal: Reports as per HPI and back pain; Denies neck pain Integumentary Denies abscess or rash Neurologic Neurologic: Denies headache(s), paresthesias or weakness Psychiatric Psychiatric: Denies anxiety or suicidal thoughts EXAM Physical Exam Const Vital Signs: 09/16/21 01:28 09/16/21 01:29 Temperature 98.3 F 98.4 F Temperature Source Temporal Temporal Pulse Rate 128 H 124 H Respiratory Rate 18 14 Blood Pressure 148/103 H 134/100 H Blood Pressure Mean 118 111 Pulse Ox 98 98 Oxygen Delivery Method Room Air Room Air Positive well nourished and well developed General Appearance ED: well developed and NAD HEENT Reports moist mucous membranes normocephalic and atraumatic Eyes PERRL and EOMs intact bilaterally Neck full ROM and supple Resp normal respiratory effort and clear to auscultation bilaterally Cardio regular rate, regular rhythm and no murmurs GI non-distended GI Narrative: No guarding or rebound tenderness Auscultation: normoactive bowel sounds Palpation: soft and tender epigastric and LUQ Back/Spine no CVA tenderness General Back: other FROM Extremity normal to inspection General Extremety ED: Negative for edema, pulses abnormal or tenderness General Extremity: Negative for edema or pulses abnormal Neuro oriented x3, CN's II-XII intact bilaterally and no sensory deficits noted Sensorium / Orientation: awake and alert Motor Exam: strength 5/5 throughout Skin no rashes or lesions noted and no wounds MDM MDM MDM Narrative Medical decision making narrative: Labs show a lipase of over 3000 consistent with pancreatitis given the patient's symptoms and alcohol use. Her total bilirubin is 1.2 which is slightly abnormal, her INR is normal. It is possible this is related to early cirrhosis, but more concerning is her bicarb of 17 and elevated anion gap which is of unknown etiology. I discussed more with the patient. She is drinking 40 proof vodka that she purchases, and she is drinking no other substances/toxins other than sparkling water that she is also purchasing. Given the metabolic acidosis I did a lactate, but it was within normal limits, so I added on other testing that has not yet resulted in order to rule out toxin since she is not uremic and she is not a diabetic or hyperglycemic; alcohol added although she does not seem intoxicated, as well as a methanol level, this hospital does not perform ethylene glycol levels; and added ketones to evaluate for possible AKA. I also added a CT of the abdomen/pelvis since I do not have ultrasound available at night, and she has hyperbilirubinemia and an unexplained metabolic acidosis. It basically shows mild signs of acute pancreatitis as well as cholelithiasis without radiographic evidence of acute cholecystitis. Clinically I am not concerned about cholecystitis either. Plan will be for admission and further evaluation and treatment. Lab Data Attestation: I reviewed the patient's lab results. Labs: Laboratory Results - last 24 hr 09/16/21 09/16/21 09/16/21 02:10 02:10 02:10 WBC 8.2 RBC 5.01 Hgb 15.9 H Hct 45.5 MCV 90.8 MCH 31.7 MCHC 34.9 RDW Std Deviation 46.5 H RDW Coeff of Laxmi 14.0 Plt Count 211 MPV 9.9 Immature Gran % (Auto) 0.500 Neut % (Auto) 71.1 H Lymph % (Auto) 19.3 Vilas % (Auto) 6.8 Eos % (Auto) 2.1 Baso % (Auto) 0.2 Absolute Neuts (auto) 5.8 Absolute Lymphs (auto) 1.59 Nucleated RBC % 0 PT 12.7 INR 1.0 Sodium 132 L Potassium 4.5 Chloride 99 Carbon Dioxide 17.0 L Anion Gap 16 H BUN 7 Creatinine 0.77 Estim Creat Clear Calc 59.91 Est GFR (MDRD) Af Amer 98 Est GFR (MDRD) Non-Af 81 BUN/Creatinine Ratio 9.1 L Glucose 133 H Lactic Acid Calcium 9.7 Total Bilirubin 1.20 H AST 39 H ALT 22 Alkaline Phosphatase 123 H Total Protein 8.4 H Albumin 3.9 Globulin 4.5 H Albumin/Globulin Ratio 0.9 Lipase 3336 H Urine Color Urine Clarity Urine pH Ur Specific Norris Urine Protein Urine Glucose (UA) Urine Ketones Urine Occult Blood Urine Nitrite Urine Bilirubin Urine Urobilinogen Ur Leukocyte Esterase Urine RBC Urine WBC Ur Squamous Epith Cells Urine Bacteria Hyaline Casts Urine Mucus 09/16/21 09/16/21 02:40 02:59 WBC RBC Hgb Hct MCV MCH MCHC RDW Std Deviation RDW Coeff of Laxmi Plt Count MPV Immature Gran % (Auto) Neut % (Auto) Lymph % (Auto) Vilas % (Auto) Eos % (Auto) Baso % (Auto) Absolute Neuts (auto) Absolute Lymphs (auto) Nucleated RBC % PT INR Sodium Potassium Chloride Carbon Dioxide Anion Gap BUN Creatinine Estim Creat Clear Calc Est GFR (MDRD) Af Amer Est GFR (MDRD) Non-Af BUN/Creatinine Ratio Glucose Lactic Acid 1.3 Calcium Total Bilirubin AST ALT Alkaline Phosphatase Total Protein Albumin Globulin Albumin/Globulin Ratio Lipase Urine Color Yellow Urine Clarity Clear Urine pH 5.0 Ur Specific Norris 1.025 Urine Protein 100 H Urine Glucose (UA) Normal Urine Ketones 150 A* Urine Occult Blood 50 H Urine Nitrite Negative Urine Bilirubin Negative Urine Urobilinogen 1 H Ur Leukocyte Esterase 100 H Urine RBC 0-5 SEEN Urine WBC 10-25 SEEN Ur Squamous Epith Cells 0-5 SEEN Urine Bacteria 1+ Hyaline Casts 0-5 SEEN Urine Mucus 0 SEEN Radiography Diagnostic Testing: Clinical Impression(s) from Imaging Studies Abdomen/Pelvis CT 09/16/21 03:03 IMPRESSION: 1. Slight stranding about the pancreas is compatible with recent pancreatitis although this appears to be improving. 2. 1.7 cm cystic lesion along the tail of pancreas was not seen on the prior study; differential includes pseudocyst, IPMN, and simple pancreatic cyst. Electronically Signed: Robb Taylor MD at 4:34 EST , Discharge Plan Dx/Rx/DC Orders Clinical Impression: Acute alcoholic pancreatitis, Metabolic acidosis, Cholelithiasis Disposition Disposition: Acute Care Hospital [facility]
[2021-09-16] MEDS: 0.9% Normal Saline 1,000 ML 1000 ML IV (02:14)
[2021-09-16] MEDS: Ondansetron 4 MG/2 ML Vial IV (02:15)
[2021-09-16] MEDS: Morphine 4 MG/ML Syringe IV (02:15)
[2021-09-16 02:23] LABS: Absolute Lymphocyte Count 1.59 X10^3/uL (0.83-4.51); Absolute Neutrophil Count 5.8 X10^3/uL (2.0-7.7); Basophil# 0.02 X10^3/uL; Basophil% 0.2 % (0-1); Eosinophil# 0.17 X10^3/uL; Eosinophils% 2.1 % (0-5); Hematocrit 45.5 % (37-47); Hemoglobin 15.9 g/dL (12.0-15.0); Lymphocyte # 1.59 X10^3/ul (0.83-4.51); Lymphocyte % 19.3 % (19-41); Mean Corp Hgb Conc 34.9 g/dL (32-36); Mean Corpuscular Hgb 31.7 pg (27.0-32.0); Mean Corpuscular Volume 90.8 fL (81-99); Mean Platelet Vol. 9.9 fl (6.2-12.0); Monocyte# 0.56 X10^3/uL; Monocyte% 6.8 % (0-10); NRBC Flagged by Analyzer 0 % (0-5); Neutrophil # 5.84 X10^3/uL (2.7-7.7); Neutrophil % 71.1 % (47-70); Platelet Count 211 K/mm3 (150-450); RBC Distribution Width SD 46.5 fl (35.1-43.9); Red Blood Count 5.01 M/mm3 (4.2-5.4); White Blood Count 8.2 K/mm3 (4.4-11.0)
[2021-09-16 02:31] LABS: Prothrombin Time (Protime)PT. 12.7 SECONDS (11.7-14.9)
[2021-09-16 02:41] LABS: ALB/GLOB Ratio 0.9 RATIO (0.9-2.4); AST(SGOT) 39 U/L (15-37); Alanine Aminotransfer ALT/SGPT 22 U/L (13-56); Albumin, Serum 3.9 g/dL (3.2-5.0); Alkaline Phosphatase 123 U/L (45-117); Anion Gap 16 (5-15); BUN 7 mg/dL (7-18); BUN/Creat Ratio 9.1 RATIO (10-20); Calcium,Total 9.7 mg/dL (8.5-10.1); Chloride 99 mmol/L (98-107); Creatinine, Serum 0.77 mg/dL (0.55-1.02); EST Glomerular Filtration Rate 81 mL/min (>60); Est Glom Filt Rate - Afr Amer 98 mL/min (>60); Estimated Creatinine Clearance 59.91 ml/min; Globulin 4.5 g/dL (2.2-4.2); Glucose 133 mg/dL (74-106); Lipase 3336 U/L (73-393); Potassium 4.5 mmol/L (3.5-5.1); Protein, Total 8.4 g/dL (6.4-8.2); Sodium Level 132 mmol/L (136-145)
[2021-09-16 02:43] LABS: Mucous, Urine 0 SEEN /hpf (<or=2+)
[2021-09-16 02:45] LABS: Color, Urine Yellow (Yellow); Glucose, Dipstick Normal (Normal); Ketone-Dipstick 150 mg/dl (Negative); Leukocyte Esterase-Dipstick 100 /ul (Negative); Nitrite-Dipstick Negative (Negative); Occult Blood-Urine 50 /ul (Negative); Protein-Dipstick 100 mg/dl (Negative); Specific Gravity, Urine 1.025 (1.002-1.030); Urine Bilirubin Dipstick Negative (Negative); Urine Clarity Clear (Clear); Urine Urobilinogen 1 mg/dl (Normal)
[2021-09-16 02:47] LABS: Red Blood Cells-Urine 0-5 SEEN /hpf (0-5); White Blood Cells 10-25 SEEN /hpf (0-5)
--- NOTE | 2021-09-16 03:03 | CT_ITS ---
EXAM: CT ABDOMEN AND PELVIS WITH INTRAVENOUS CONTRAST CLINICAL INDICATION: upper abdominal pain TECHNIQUE: Helically acquired images were obtained of the abdomen and pelvis with intravenous contrast. CTDIvol = ( 16.58 ) mGy, DLP = ( 927.08 ) mGycm This CT exam was performed using one or more of the following dose reduction techniques: automated exposure control, adjustment of the mA and/or kV according to patient size, and/or use of iterative reconstruction technique. This report was created using [employer]gn[employer] report generation technology. CONTRAST: IV 100mL Isovue-300 COMPARISON: CT abdomen pelvis 03/05/2019 FINDINGS: LOWER THORAX: Subsegmental atelectasis at the posterior lower lobes. No cardiomegaly. No significant pericardial effusion. ABDOMEN: LIVER: Hepatic steatosis. Hepatomegaly. GALLBLADDER AND BILE DUCTS: Cholelithiasis. Mildly dilated common bile duct. No gallbladder distention or wall edema. PANCREAS: Stranding about the pancreas is concerning for acute pancreatitis. Correlate with pancreatic enzymes. 1.7 cm cystic lesion along the tail of pancreas is again noted; differential. Simple pancreatic cyst. SPLEEN: Unremarkable. Normal size without focal cystic or solid mass. ADRENALS: Unremarkable. No nodules. KIDNEYS AND URETERS: Small hypodense lesion at the lower pole left kidney. No hydronephrosis. STOMACH AND BOWEL: Unremarkable. No stomach or bowel distention. No focal inflammatory change. PELVIS: APPENDIX: No evidence of acute appendicitis. BLADDER: Unremarkable. REPRODUCTIVE: Unremarkable as visualized. No mass. ABDOMEN and PELVIS: INTRAPERITONEAL SPACE: Unremarkable. No ascites or other fluid collection. No free air. BONES/JOINTS: Unremarkable. No suspicious lytic or blastic abnormality. SOFT TISSUES: Unremarkable. No discrete abdominal or pelvic wall hernia. VASCULATURE: Unremarkable. Abdominal aorta is non-dilated. LYMPH NODES: Unremarkable. No enlarged lymph nodes. OTHER FINDINGS: includes pseudocyst, IPMN, and epithelial tumor. CT/Abdomen/Pelvis W IV Cont ONLY IMPRESSION: 1. Slight stranding about the pancreas is compatible with recent pancreatitis although this appears to be improving. 2. 1.7 cm cystic lesion along the tail of pancreas was not seen on the prior study; differential includes pseudocyst, IPMN, and simple pancreatic cyst. Electronically Signed: Robb Taylor MD at 4:34 EST ,
[2021-09-16 03:05] LABS: Bacteria 1+ /hpf (None Seen); Hyaline Cast 0-5 SEEN /lpf (0-5); Squamous Epithelial Cells - UA 0-5 SEEN /hpf (5-10)
[2021-09-16 03:38] LABS: Lactic Acid 1.3 mmol/L (0.4-1.9)
--- NOTE | 2021-09-16 04:57 | PCM.HP.STD ---
HPI - General General Date of Admission: 09/16/21 HPI Narrative PRASHANT MAZARIEGOS, is a 61 F who presents presents to the hospital with epigastric abdominal pain has been going on for the last 2 days. She states that over the last several weeks she has started drinking significantly and the last time this happened she had an acute pancreatitis with what was thought to be at the time alcoholic ketoacidosis in the setting of the pancreatitis. It looks like she has a similar picture today, she is concentrated with a hemoglobin of 15.9 and a lipase over 3000. She does have some peripancreatic stranding and gallstones on CT scan. Bilirubin is a little bit elevated to 1.2. She thinks that over the last week, week and a half her diet has not been very good and her p.o. intake has been poor. Currently she says that her pain is under control with with the morphine given in the ER. [facility] Medical History Alcohol use Anxiety Bipolar disorder Compression fracture Debility Depression Difficulty swallowing Elevated blood pressure reading Flu vaccine need Health care maintenance Injury of head and neck Non-smoker Osteoporosis Pain at injection site Preventative health care Scalp psoriasis Scoliosis Walker as ambulation aid Wears contact lenses Home Medications aripiprazole 10 mg PO DAILY 03/05/19 [History Last Taken 11/07/20] denosumab 60 mg SC [id number] 05/28/19 [History Last Taken Unknown] buspirone 10 mg tablet 10 mg PO DAILY tab 06/25/19 [History Last Taken 11/07/20] acetaminophen 500 mg tablet 1,000 mg PO Q6H 11/08/20 [History Last Taken 11/08/20 06:00] Lift Chair #1 ea 12/08/20 [Rx Last Taken Unknown] tizanidine 4 mg capsule 4 mg PO BID PRN #60 cap 04/24/21 [Rx Last Taken Unknown] meloxicam 7.5 mg tablet 7.5 mg PO DAILY #30 tab 07/23/21 [Rx Last Taken Unknown] cholecalciferol (vitamin D3) 125 mcg (5,000 unit) capsule 125 mcg PO DAILY #90 cap 07/24/21 [Rx Last Taken Unknown] oxycodone-acetaminophen 5 mg-325 mg tablet 1 tab PO Q8H PRN 07/24/21 [History Last Taken Unknown] potassium chloride 20 mEq tablet,extended release 20 meq PO DAILY #90 tab 07/24/21 [Rx Last Taken Unknown] multivitamin 1 tab PO QAM #90 tab 07/26/21 [Rx Last Taken Unknown] clobetasol 0.05 % shampoo 1 applic TOPICAL QHS 28 Days #118 ml 08/28/21 [Rx Last Taken Unknown] Allergy/AdvReac Type Severity Reaction Status Date / Time No Known Allergies Allergy Verified 07/24/21 09:15 Family History Other Heart disease Osteoporosis Surgical History History of back surgery History of tubal ligation History of wisdom tooth extraction Hx of total hip arthroplasty S/P kyphoplasty Social History Smoking Status: Never smoker alcohol intake: former substance use type: does not use what type of physical activity do you participate in: none ROS Constitutional Constitutional: Denies chills, fatigue, fever(s) or malaise Eyes Eyes: Denies blurry vision ENT HEENT: Denies headache(s) or nasal discharge Cardiovascular Cardiovascular: Denies chest pain, dyspnea on exertion or syncope Respiratory/Chest Respiratory/Chest: Denies cough, shortness of breath at rest or shortness of breath with exertion Gastrointestinal Gastrointestinal: Reports abdominal pain; Denies constipation, diarrhea, nausea or vomiting Genitourinary Genitourinary: Denies dysuria Neurologic Neurologic: Denies focal weakness, numbness or tremor(s) Psychiatric Psychiatric: Denies anxiety or depression Vital Signs Vital Signs Vital Signs: 09/16/21 01:28 09/16/21 01:29 Temperature 98.3 F 98.4 F Temperature Source Temporal Temporal Pulse Rate 128 H 124 H Respiratory Rate 18 14 Blood Pressure 148/103 H 134/100 H Blood Pressure Mean 118 111 Pulse Ox 98 98 Oxygen Delivery Method Room Air Room Air Weight Weight: 152 lb 5.431 oz Body Mass Index (BMI) 27.8 Physical Exam Const alert, oriented x3 and no apparent distress General Appearance: cooperative HEENT normocephalic Mouth: dry mucous membranes Eyes PERRL, EOMs intact bilaterally and conjunctivae normal Neck supple and no JVD Resp normal respiratory effort, no retractions, no use of accessory muscles and clear to auscultation bilaterally Auscultation: Negative for crackles, rales, rhonchi or wheezes Cardio regular rhythm, S1 normal heart sound, S2 normal heart sound and no murmurs Rate: tachycardic GI soft to palpation and non-distended; Negative for hepatosplenomegaly Palpation: tender epigastric Extremity no clubbing, cyanosis or edema Skin no rashes or lesions noted Neuro no focal motor deficits and no sensory deficits noted Psych affect normal Appearance: appropriate Results Lab / Micro Data Result Diagrams: 09/16/21 02:10 09/16/21 02:10 Labs: Laboratory Results - last 24 hr 09/16/21 02:10: PT 12.7, INR 1.0 09/16/21 02:10: WBC 8.2, RBC 5.01, Hgb 15.9 H, Hct 45.5, MCV 90.8, MCH 31.7, MCHC 34.9, RDW Std Deviation 46.5 H, RDW Coeff of Laxmi 14.0, Plt Count 211, MPV 9.9, Immature Gran % (Auto) 0.500, Neut % (Auto) 71.1 H, Lymph % (Auto) 19.3, [place] % (Auto) 6.8, Eos % (Auto) 2.1, Baso % (Auto) 0.2, Absolute Neuts (auto) 5.8, Absolute Lymphs (auto) 1.59, Nucleated RBC % 0 09/16/21 02:10: Sodium 132 L, Potassium 4.5, Chloride 99, Carbon Dioxide 17.0 L, Anion Gap 16 H, BUN 7, Creatinine 0.77, Estim Creat Clear Calc 59.91, Est GFR (MDRD) Af Amer 98, Est GFR (MDRD) Non-Af 81, BUN/Creatinine Ratio 9.1 L, Glucose 133 H, Calcium 9.7, Total Bilirubin 1.20 H, AST 39 H, ALT 22, Alkaline Phosphatase 123 H, Total Protein 8.4 H, Albumin 3.9, Globulin 4.5 H, Albumin/Globulin Ratio 0.9, Lipase 3336 H 09/16/21 02:40: Urine Color Yellow, Urine Clarity Clear, Urine pH 5.0, Ur Specific [place] 1.025, Urine Protein 100 H, Urine Glucose (UA) Normal, Urine Ketones 150 A*, Urine Occult Blood 50 H, Urine Nitrite Negative, Urine Bilirubin Negative, Urine Urobilinogen 1 H, Ur Leukocyte Esterase 100 H, Urine RBC 0-5 SEEN, Urine WBC 10-25 SEEN, Ur Squamous Epith Cells 0-5 SEEN, Urine Bacteria 1+, Hyaline Casts 0-5 SEEN, Urine Mucus 0 SEEN 09/16/21 02:59: Lactic Acid 1.3 Radiology Impression Abdomen/Pelvis CT 09/16/21 03:03 IMPRESSION: 1. Slight stranding about the pancreas is compatible with recent pancreatitis although this appears to be improving. 2. 1.7 cm cystic lesion along the tail of pancreas was not seen on the prior study; differential includes pseudocyst, IPMN, and simple pancreatic cyst. Electronically Signed: Robb Taylor MD at 4:34 EST , Assessment & Plan Assessment/Plan (1) Metabolic acidosis: (2) Acute alcoholic pancreatitis: PLAN: 1. Acute alcoholic pancreatitis with metabolic acidosis likely combination of the pancreatitis and alcoholic ketoacidosis ?Lots of she had a she did have a small acetone in her urine ?She does also appear to potentially have a UTI, urine culture is pending but will hold off of antibiotics at this time ?Continue with aggressive IV fluids ?She does appear fairly stable so we will trial her on a diet I did advise her that if she notices any significant worsening of her pain while eating that she is to stop eating and will make her n.p.o. ?She is drinking fairly heavily again but her last drink was on and she is doing well so we will continue to monitor will not place her on any medications at this time for alcohol withdrawal or detox 2. Bipolar disorder ?Stable ?Continue with her home medications DVT: Lovenox 6 weeks daily Charges/Coding Visit Charges Inpatient E&M: 06674 Init Hosp L2
[2021-09-16] MEDS: 0.9% Normal Saline 1,000 ML 999 ML IV (05:04)
[2021-09-16 05:30] LABS: Salicylate < 1.7 mg/dL (2.8-20.0)
[2021-09-16 05:35] LABS: Alcohol, Blood (Medical)-Serum < 3.0 mg/dL
[2021-09-16] MEDS: 0.9% Normal Saline 1,000 ML 125 ML IV ×2 (06:20→13:43)
[2021-09-16] MEDS: ARIPiprazole 10 MG Tablet PO (07:53)
[2021-09-16] MEDS: busPIRone 5 MG Tablet 10 MG PO (07:53)
[2021-09-16] MEDS: Enoxaparin 40 MG/0.4 ML Syringe SC (07:53)
[2021-09-16] MEDS: Mag Hydrox/Al Hydrox/Simeth 30 ML UDC PO ×2 (07:53→13:44)
--- NOTE | 2021-09-16 07:59 | PN.HOSP_ITS ---
Subjective Subjective Follow-up on acute pancreatitis: Patient seen and examined. She complains of epigastric discomfort and heartburns. This was improved with Mylanta. Denies any nausea or diarrhea. Denies any fever or chills. Objective Data Objective Data Vital Signs: Vital Signs Temp Pulse Resp BP Pulse Ox 98.2 F 101 H 18 130/76 H 99 09/16/21 06:01 09/16/21 06:01 09/16/21 06:01 09/16/21 06:01 09/16/21 06:01 Oxygen Delivery Method Room Air Weight: 68.4 kg Body Mass Index (BMI) 27.6 Intake & Output: Intake and Output for Last 24 Hours 09/14/21 09/15/21 09/16/21 23:59 23:59 23:59 Intake Total 1999 Balance 1999 Lab / Micro Data Result Diagrams: 09/16/21 02:10 09/16/21 02:10 Labs: Laboratory Results - last 24 hr 09/16/21 02:10: PT 12.7, INR 1.0 09/16/21 02:10: WBC 8.2, RBC 5.01, Hgb 15.9 H, Hct 45.5, MCV 90.8, MCH 31.7, MCHC 34.9, RDW Std Deviation 46.5 H, RDW Coeff of Laxmi 14.0, Plt Count 211, MPV 9.9, Immature Gran % (Auto) 0.500, Neut % (Auto) 71.1 H, Lymph % (Auto) 19.3, [place] % (Auto) 6.8, Eos % (Auto) 2.1, Baso % (Auto) 0.2, Absolute Neuts (auto) 5.8, Absolute Lymphs (auto) 1.59, Nucleated RBC % 0 09/16/21 02:10: Sodium 132 L, Potassium 4.5, Chloride 99, Carbon Dioxide 17.0 L, Anion Gap 16 H, BUN 7, Creatinine 0.77, Estim Creat Clear Calc 59.91, Est GFR (MDRD) Af Amer 98, Est GFR (MDRD) Non-Af 81, BUN/Creatinine Ratio 9.1 L, Glucose 133 H, Calcium 9.7, Total Bilirubin 1.20 H, AST 39 H, ALT 22, Alkaline Yudith sphatase 123 H, Total Protein 8.4 H, Albumin 3.9, Globulin 4.5 H, Albumin/Globulin Ratio 0.9, Lipase 3336 H 09/16/21 02:40: Urine Color Yellow, Urine Clarity Clear, Urine pH 5.0, Ur Specific [place] 1.025, Urine Protein 100 H, Urine Glucose (UA) Normal, Urine Ke tones 150 A*, Urine Occult Blood 50 H, Urine Nitrite Negative, Urine Bilirubin Negative, Urine Urobilinogen 1 H, Ur Leukocyte Esterase 100 H, Urine RBC 0-5 SEEN, Urine WBC 10-25 SEEN, Ur Squamous Epith Cells 0-5 SEEN, Urine Bacteria 1+, Hyaline Casts 0-5 SEEN, Urine Mucus 0 SEEN 09/16/21 02:59: Lactic Acid 1.3 09/16/21 04:45: Ethyl Alcohol < 3.0 09/16/21 04:45: Salicylates < 1.7 L 09/16/21 04:45: Acetone Level MODERATE H Radiography Diagnostic Testing: Radiology Impression Abdomen/Pelvis CT 09/16/21 03:03 IMPRESSION: 1. Slight stranding about the pancreas is compatible with recent pancreatitis although this appears to be improving. 2. 1.7 cm cystic lesion along the tail of pancreas was not seen on the prior study; differential includes pseudocyst, IPMN, and simple pancreatic cyst. Electronically Signed: Robb Taylor MD at 4:34 EST , Physical Exam Narrative Physical exam: General: Alert, Oriented x3, Cooperative, No apparent distress, Well developed HEENT: Atraumatic Oral: Moist Mucosa Neck: Supple Lungs: Diminished to auscultation Cardiovascular: HS I+II, regular, no murmurs Abdomen: Bowel Sounds Present, Soft, epigastric tenderness, no guarding or rebound tenderness Extremities: No edema Assessment & Plan Assessment/Plan (1) Metabolic acidosis: (2) Acute alcoholic pancreatitis: QUALIFIERS: Acute pancreatitis complication: unspecified Qualified Code(s): K85.20 - Alcohol induced acute pancreatitis without necrosis or infection PLAN: 1. Acute alcoholic pancreatitis, in a known alcoholic CT of the abdomen pelvis on admission shows pancreatitis with slight stranding of the pancreas, 1.7 cm cystic lesion along the tail Continue with n.p.o., advance diet as can be tolerated IV fluids, IV PPI 2. Anion gap metabolic acidosis likely secondary to starvation ketoacidosis versus alcohol ketoacidosis Continue on D51/2 normal saline, advance diet as tolerated, repeat blood work in am 3. Chronic medical conditions including osteoporosis, scoliosis, history of chronic low back pain, anxiety/depression Continue rest of home medications 4. DVT PPx- Lovenox SC Charges/Coding Visit Charges Inpatient E&M: 64428 Subs Hosp L2
[2021-09-16] MEDS: Acetaminophen 325 MG Tablet 650 MG PO ×2 (10:10→16:53)
[2021-09-16] MEDS: Dext 5%-0.45% NS 1,000 ML 125 ML IV ×2 (15:11→22:44)
[2021-09-16] MEDS: Morphine 2 MG/ML Syringe IV (22:43)
[2021-09-17 02:00] VITALS: BP 105/78; PULSE 97; RESP 16; TEMP 37.1; O2SAT 96
[2021-09-17] MEDS: Acetaminophen 325 MG Tablet 650 MG PO ×3 (03:34→22:25)
[2021-09-17] MEDS: Dext 5%-0.45% NS 1,000 ML 125 ML IV ×3 (06:24→22:36)
[2021-09-17 06:30] LABS: Absolute Lymphocyte Count 1.55 X10^3/uL (0.83-4.51); Absolute Neutrophil Count 4.9 X10^3/uL (2.0-7.7); Basophil# 0.03 X10^3/uL; Basophil% 0.4 % (0-1); Eosinophil# 0.25 X10^3/uL; Eosinophils% 3.4 % (0-5); Hematocrit 38.7 % (37-47); Hemoglobin 13.7 g/dL (12.0-15.0); Lymphocyte # 1.55 X10^3/ul (0.83-4.51); Lymphocyte % 21.3 % (19-41); Mean Corp Hgb Conc 35.4 g/dL (32-36); Mean Corpuscular Hgb 31.8 pg (27.0-32.0); Mean Corpuscular Volume 89.8 fL (81-99); Mean Platelet Vol. 10.5 fl (6.2-12.0); Monocyte# 0.52 X10^3/uL; Monocyte% 7.2 % (0-10); NRBC Flagged by Analyzer 0 % (0-5); Neutrophil # 4.88 X10^3/uL (2.7-7.7); Neutrophil % 67.3 % (47-70); Platelet Count 164 K/mm3 (150-450); RBC Distribution Width SD 45.8 fl (35.1-43.9); Red Blood Count 4.31 M/mm3 (4.2-5.4); White Blood Count 7.3 K/mm3 (4.4-11.0)
[2021-09-17 06:57] LABS: ALB/GLOB Ratio 0.8 RATIO (0.9-2.4); AST(SGOT) 20 U/L (15-37); Alanine Aminotransfer ALT/SGPT 17 U/L (13-56); Alkaline Phosphatase 96 U/L (45-117); Anion Gap 4 (5-15); BUN 2 mg/dL (7-18); BUN/Creat Ratio 3.5 RATIO (10-20); Chloride 111 mmol/L (98-107); Creatinine, Serum 0.57 mg/dL (0.55-1.02); EST Glomerular Filtration Rate 114 mL/min (>60); Est Glom Filt Rate - Afr Amer 138 mL/min (>60); Estimated Creatinine Clearance 80.94 ml/min; Globulin 3.6 g/dL (2.2-4.2); Glucose 131 mg/dL (74-106); Protein, Total 6.6 g/dL (6.4-8.2); Sodium Level 139 mmol/L (136-145)
--- NOTE | 2021-09-17 07:28 | PN.HOSP_ITS ---
Subjective Subjective Patient is a 62-year-old lady with history of chronic alcohol dependence who presented with abdominal pain. CT of the abdomen obtained demonstrated features consistent with pancreatitis admitted to regular nursing floor for further management Objective Data Objective Data Vital Signs: Vital Signs Temp Pulse Resp BP Pulse Ox 98.7 F 97 16 105/78 96 09/17/21 02:00 09/17/21 02:00 09/17/21 02:00 09/17/21 02:00 09/17/21 02:00 Oxygen Delivery Method Room Air Weight: 68.4 kg Body Mass Index (BMI) 27.6 Intake & Output: Intake and Output for Last 24 Hours 09/15/21 09/16/21 09/17/21 23:59 23:59 23:59 Intake Total 4862.09 / 4862.09 958.33 / 958.33 Output Total 300 / 300 Balance 4562.09 / 4562.09 958.33 / 958.33 Lab / Micro Data Result Diagrams: 09/17/21 06:08 09/17/21 06:08 Labs: Laboratory Results - last 24 hr 09/17/21 06:08: WBC 7.3, RBC 4.31, Hgb 13.7, Hct 38.7, MCV 89.8, MCH 31.8, MCHC 35.4, RDW Std Deviation 45.8 H, RDW Coeff of Laxmi 14.0, Plt Count 164, MPV 10.5, Immature Gran % (Auto) 0.400, Neut % (Auto) 67.3, Lymph % (Auto) 21.3, [place] % (Auto) 7.2, Eos % (Auto) 3.4, Baso % (Auto) 0.4, Absolute Neuts (auto) 4.9, Absolute Lymphs (auto) 1.55, Nucleated RBC % 0 09/17/21 06:08: Sodium 139, Potassium 3.0 L, Chloride 111 H, Carbon Dioxide 24.0, Anion Gap 4 L, BUN 2 L, Creatinine 0.57, Estim Creat Clear Calc 80.94, Est GFR (MDRD) Af Amer 138, Est GFR (MDRD) Non-Af 114, BUN/Creatinine Ratio 3.5 L, Glucose 131 H, Calcium 8.0 L, Total Bilirubin 0.70, AST 20, ALT 17, Alkaline Phosphatase 96, Total Protein 6.6, Albumin 3.0 L, Globulin 3.6, Albumin/Globulin Ratio 0.8 L Physical Exam Narrative GENERAL: cooperative HEENT: Atraumatic; EYES; Anicteric, Normal Conjunctiva NECK; supple, normal thyroid, RESPIRATORY: Diminished to auscultation CARDIOVASCULAR: Regular S1 S2, GI: soft, normoactive bowel sounds, : No Renal angle tenderness; EXTREMITIES: No edema, no clubbing, MUSCULOSKELETAL: no muscle wasting NEURO: Awake; no lateralizing signs. SKIN: No Rash PSYCH; Flat affect Assessment & Plan Assessment/Plan (1) Metabolic acidosis: (2) Acute alcoholic pancreatitis: QUALIFIERS: Acute pancreatitis complication: unspecified Qualified Code(s): K85.20 - Alcohol induced acute pancreatitis without necrosis or infection PLAN: Patient is a 62-year-old lady with history of chronic alcohol dependence who presented with abdominal pain. CT of the abdomen obtained demonstrated features consistent with pancreatitis admitted to regular nursing floor for further management 1. Acute pancreatitis ?Alcohol induced ?Patient admitted to regular nursing floor for conservative management. Patient was kept n.p.o. and managed with pain and antinausea medication in addition to PPI. Plan is for patient to be started on clear liquid to be advanced as tolerated 2. Hypokalemia ?Corrected per protocol 3.Chronic alcohol dependence ?Counseled on cessation patient encouraged to follow-up with 180 counseling services on discharge 4.Polar disorder ?Discontinue patient psychotropic medications 5. Osteoporosis ?Patient is on denosumab did continue 6. Depression with anxiety ?Did continue with home meds 7. Chronic back pain ?Pain meds as needed 8. DVT prophylaxis ?Placed on Lovenox Charges/Coding Visit Charges Inpatient E&M: 32855 Subs Hosp L2
[2021-09-17 07:55] VITALS: BP 127/80; PULSE 90; RESP 16; TEMP 36.6; O2SAT 95
[2021-09-17] MEDS: busPIRone 5 MG Tablet 10 MG PO (07:59)
[2021-09-17] MEDS: ARIPiprazole 10 MG Tablet PO (07:59)
[2021-09-17] MEDS: Multivitamins,Therapeutic Tablet 1 TABLET PO (07:59)
[2021-09-17] MEDS: Enoxaparin 40 MG/0.4 ML Syringe SC (08:00)
[2021-09-17] MEDS: Cholecalciferol (VIT D3) 25 MCG TABLET (1,000 UNITS) 125 MCG PO (08:00)
[2021-09-17] MEDS: Potassium Chloride 10mEq/100mL 10 MEQ/100 ML IV.SOLN. 100 MEQ IV BOLUS ×4 (09:01→12:39)
--- NOTE | 2021-09-17 10:25 | CASEMGMT ---
ARTUR POLLOCK Face to Face with patient for initial transition planning/care coordination assessment. RN PHILL introduced self and role at [facility]. Patient lying in bed, alert and oriented. Patient willing to participate in assessment and is able to answer all questions appropriately. Care providers, pharmacy, and demographics verified. Patient wishes to discharge home, denies need for home health at this time. Patient states she has no further needs or concerns at this time. CM to follow for discharge planning needs that may arise. PCP: Jesusita Specialists: Sai Romero; John INVENTORY TECHNICIAN [facility] Preferred Pharmacy: [facility] Insurance: [facility] Prescription Benefit: yes Living Will/HPOA: none LNOK: Friend Living Arrangements: Patient lives alone in a first floor apartment with 2 steps and railing to enter. Patient states she is independent for dressing and toilet. Has aide to assist with bathing and cleaning. Transportation: [facility] van DME/HHC: Patient states she has shower chair, raised toilet, grab bars, and walker at home. Patient states she has previously been to [facility] and [facility] in the past. Patient has previously had [facility]. Patient has [employer] services with CM as Renetta Rodriguez. Patient has aide services 2hrs per day 3 days per week. Disposition Plan: Patient to discharge home with resumption of aide services and follow-up plans in place. Will monitor patient for HHC pending progress with therapy and care. Shadia KING, RN, CM
[2021-09-17 12:44] VITALS: BP 129/91; PULSE 95; RESP 16; TEMP 36.9; O2SAT 98
--- NOTE | 2021-09-17 13:05 | CASEMGMT ---
Social Work Note SW updated that pt has CM Natalie Rodriguez through [facility]. SW placed a call to Natalie Rodriguez and left message updating her on pt's admissions to [facility]. SW updated Natalie Rodriguez that at this time pt's plan is home and denied the need for HHC. SW then received message from Natalie Rodriguez stating she would advocate for pt to get skilled services at home at discharge. SW to continue to follow. Shadia Fields THERMOSTATIC CONTROLS SUPERVISOR, MECHANICAL RELIABILITY ENGINEER
--- NOTE | 2021-09-17 14:49 | CHAPLAIN ---
Type of Pastoral Visit _x__ Initial Visit ___ Follow-up Visit ___ On-call Visit ___ General Patient Visit ___ Spiritual Assessment ___ Family Conference ___ Bereavement ___ Rapid Response ___ Code Blue ___ Other (describe below) Pastoral Care Referral From _x__ Patient ___ Family ___ Nurse ___ Physician ___ Rn X Ray ___ Records Management Manager ___ Other (describe below) Sacrament/Intervention _x__ Active listening ___ Anointing ___ Mormon ___ Bereavement ___ Communion ___ Kayla exploration ___ _x__ Life review _x__ Prayer ___ Reconciliation ___ Sacrament of Sick _x__ Supportive presence ___ Wedding ___ Other (describe below) Pastoral Comments patient was seen in a previous admission and 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
[2021-09-17 15:22] VITALS: BP 121/86; PULSE 96; RESP 16; TEMP 36.8; O2SAT 96
[2021-09-17 22:19] VITALS: BP 136/91; PULSE 92; RESP 18; TEMP 37; O2SAT 97
[2021-09-18 05:36] VITALS: BP 130/84; PULSE 91; RESP 18; TEMP 36.7; O2SAT 97
[2021-09-18] MEDS: Acetaminophen 325 MG Tablet 650 MG PO ×3 (05:37→22:05)
[2021-09-18] MEDS: Dext 5%-0.45% NS 1,000 ML 125 ML IV (05:40)
[2021-09-18 06:25] LABS: Absolute Lymphocyte Count 1.22 X10^3/uL (0.83-4.51); Absolute Neutrophil Count 1.9 X10^3/uL (2.0-7.7); Basophil# 0.01 X10^3/uL; Basophil% 0.3 % (0-1); Eosinophils% 5.2 % (0-5); Hematocrit 35.9 % (37-47); Hemoglobin 12.8 g/dL (12.0-15.0); Lymphocyte # 1.22 X10^3/ul (0.83-4.51); Lymphocyte % 31.5 % (19-41); Mean Corp Hgb Conc 35.7 g/dL (32-36); Mean Corpuscular Hgb 31.5 pg (27.0-32.0); Mean Corpuscular Volume 88.4 fL (81-99); Mean Platelet Vol. 10.5 fl (6.2-12.0); Monocyte# 0.48 X10^3/uL; Monocyte% 12.4 % (0-10); NRBC Flagged by Analyzer 0 % (0-5); Neutrophil # 1.94 X10^3/uL (2.7-7.7); Neutrophil % 50.1 % (47-70); Platelet Count 153 K/mm3 (150-450); RBC Distribution Width CV 14.6 % (11.6-14.6); RBC Distribution Width SD 47.1 fl (35.1-43.9); Red Blood Count 4.06 M/mm3 (4.2-5.4); White Blood Count 3.9 K/mm3 (4.4-11.0)
[2021-09-18 06:41] LABS: International Normalized Ratio 1.1; Prothrombin Time (Protime)PT. 13.9 SECONDS (11.7-14.9)
[2021-09-18 07:03] LABS: AST(SGOT) 19 U/L (15-37); Alanine Aminotransfer ALT/SGPT 15 U/L (13-56); Alkaline Phosphatase 86 U/L (45-117); Anion Gap 4 (5-15); BUN 1 mg/dL (7-18); BUN/Creat Ratio 2.1 RATIO (10-20); Bilirubin, Direct 0.16 mg/dL (0.00-0.30); Calcium,Total 8.2 mg/dL (8.5-10.1); Chloride 112 mmol/L (98-107); Creatinine, Serum 0.47 mg/dL (0.55-1.02); EST Glomerular Filtration Rate 144 mL/min (>60); Est Glom Filt Rate - Afr Amer 174 mL/min (>60); Estimated Creatinine Clearance 98.16 ml/min; Globulin 3.4 g/dL (2.2-4.2); Glucose 114 mg/dL (74-106); Lipase 698 U/L (73-393); Magnesium 1.8 mg/dL (1.6-2.6); Potassium 2.9 mmol/L (3.5-5.1); Protein, Total 6.4 g/dL (6.4-8.2); Sodium Level 140 mmol/L (136-145)
[2021-09-18 08:15] VITALS: BP 136/79; PULSE 89; RESP 16; TEMP 37; O2SAT 97
--- NOTE | 2021-09-18 08:27 | PN.HOSP_ITS ---
Subjective Subjective Patient seen still has some abdominal discomfort. Urinalysis obtained on admission came back positive for E. coli started on p.o. antibiotics. Has significantly low potassium which is currently being replaced per protocol with subsequent monitoring ordered Objective Data Objective Data Vital Signs: Vital Signs Temp Pulse Resp BP Pulse Ox 98.1 F 91 18 130/84 H 97 09/18/21 05:36 09/18/21 05:36 09/18/21 05:36 09/18/21 05:36 09/18/21 05:36 Oxygen Delivery Method Room Air Weight: 68.4 kg Body Mass Index (BMI) 27.6 Intake & Output: Intake and Output for Last 24 Hours 09/16/21 09/17/21 09/18/21 23:59 23:59 23:59 Intake Total 4862.09 / 4862.09 4449.16 / 4449.16 1383.33 / 1383.33 Output Total 300 / 300 800 / 800 Balance 4562.09 / 4562.09 3649.16 / 3649.16 1383.33 / 1383.33 Medical Nutrition Assessment Dietitian: Malnutrition Criteria Met Start: 09/17/21 12:24 Freq: Status: Active Protocol: Document 09/17/21 12:24 SLA (Rec: 09/17/21 12:24 SLA [id number]) Nutrition Malnutrition Evidence of Malnutrition Exists Yes Malnutrition (severe): Acute Illness/Injury Evidenced By Suboptimal Energy Intake ( Severe),Weight Loss (Severe) Clinical Problem Acute Disease or Injury Related Malnutrition Etiology related to pancreatitis / alcoholism Signs/Symptoms as evidenced by <50% po intake x 5 days and 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 Problem Recommendation Dietitian Recommendations/Changes As medically able, rec DEYSI to Regular low fat Will order 4 oz chocolate ensure enlive w/ medpass 4x/ day Lab / Micro Data Result Diagrams: 09/18/21 05:56 09/18/21 05:56 Labs: Laboratory Results - last 24 hr 09/18/21 05:56: WBC 3.9 L, RBC 4.06 L, Hgb 12.8, Hct 35.9 L, MCV 88.4, MCH 31.5, MCHC 35.7, RDW Std Deviation 47.1 H, RDW Coeff of Laxmi 14.6, Plt Count 153, MPV 10.5, Immature Gran % (Auto) 0.500, Neut % (Auto) 50.1, Lymph % (Auto) 31.5, [place] % (Auto) 12.4 H, Eos % (Auto) 5.2 H, Baso % (Auto) 0.3, Absolute Neuts (auto) 1.9 L, Absolute Lymphs (auto) 1.22, Nucleated RBC % 0 09/18/21 05:56: PT 13.9, INR 1.1 09/18/21 05:56: Sodium 140, Potassium 2.9 L, Chloride 112 H, Carbon Dioxide 24.0, Anion Gap 4 L, BUN 1 L, Creatinine 0.47 L, Estim Creat Clear Calc 98.16, Est GFR (MDRD) Af Amer 174, Est GFR (MDRD) Non-Af 144, BUN/Creatinine Ratio 2.1 L, Glucose 114 H, Calcium 8.2 L, Magnesium 1.8, Total Bilirubin 0.80, Direct Bilirubin 0.16, AST 19, ALT 15, Alkaline Phosphatase 86, Total Protein 6.4, Albumin 3.0 L, Globulin 3.4, Lipase 698 H Micro: Microbiology 09/16/21 02:40 Urine, Clean Catch Urine Culture - Final Presumptive E. coli Physical Exam Narrative GENERAL: cooperative HEENT: Atraumatic; EYES; Anicteric, Normal Conjunctiva NECK; supple, normal thyroid, RESPIRATORY: Diminished to auscultation CARDIOVASCULAR: Regular S1 S2, GI: soft, normoactive bowel sounds, : No Renal angle tenderness; EXTREMITIES: No edema, no clubbing, MUSCULOSKELETAL: no muscle wasting NEURO: Awake; no lateralizing signs. SKIN: No Rash PSYCH; Flat affect Assessment & Plan Assessment/Plan (1) Metabolic acidosis: (2) Acute alcoholic pancreatitis: QUALIFIERS: Acute pancreatitis complication: unspecified Qualified Code(s): K85.20 - Alcohol induced acute pancreatitis without necrosis or infection PLAN: Patient is a 62-year-old lady with history of chronic alcohol dependence who presented with abdominal pain. CT of the abdomen obtained demonstrated features consistent with pancreatitis admitted to regular nursing floor for further management 1. Acute pancreatitis ?Alcohol induced ?Patient admitted to regular nursing floor for conservative management. Patient was kept n.p.o. and managed with pain and antinausea medication in addition to PPI. Plan is for patient to be started on clear liquid to be advanced as tolerated -09/18/2021; patient lipase levels still remain elevated. 2. Hypokalemia ?Corrected per protocol ?09/18/2021 potassium significantly low at 2.9. Patient was given potassium replacement via both IV and p.o. route with repeat potassium ordered for subsequent monitoring 3. Acute cystitis with E. coli ?Patient started on p.o. Cipro 4. Severe malnutrition ?As evidenced by suboptimal energy intake severe weight loss and this is related to patient chronic pancreatitis as well as alcoholism. Recommendation as noted above by dietitian 5. Osteoporosis ?Patient is on denosumab did continue 6. Depression with anxiety ?Did continue with home meds 7. Chronic back pain ?Pain meds as needed 8. Chronic alcohol dependence ?Counseled on cessation patient encouraged to follow-up with 180 counseling services on discharge 9. Bipolar disorder ?Did continue patient psychotropic medications 10. DVT prophylaxis ?Placed on Lovenox Charges/Coding Visit Charges Inpatient E&M: 93360 Subs Hosp L3
[2021-09-18] MEDS: Cholecalciferol (VIT D3) 25 MCG TABLET (1,000 UNITS) 125 MCG PO (08:33)
[2021-09-18] MEDS: Multivitamins,Therapeutic Tablet 1 TABLET PO (08:34)
[2021-09-18] MEDS: busPIRone 5 MG Tablet 10 MG PO (08:34)
[2021-09-18] MEDS: ARIPiprazole 10 MG Tablet PO (08:34)
[2021-09-18] MEDS: Potassium Chloride Oral Tablet 20 MEQ 40 MEQ PO (08:39)
[2021-09-18] MEDS: Ciprofloxacin 500 MG Tablet PO ×2 (08:39→22:05)
[2021-09-18] MEDS: Enoxaparin 40 MG/0.4 ML Syringe SC (08:39)
[2021-09-18] MEDS: Potassium Chloride 10mEq/100mL 10 MEQ/100 ML IV.SOLN. 100 MEQ IV BOLUS ×4 (08:45→13:13)
[2021-09-18 14:26] LABS: Potassium 3.6 mmol/L (3.5-5.1)
[2021-09-18 15:15] VITALS: BP 152/100; PULSE 102; RESP 16; TEMP 36.7; O2SAT 99
[2021-09-18] MEDS: Potassium Chloride Oral Tablet 20 MEQ PO (17:40)
[2021-09-18 21:15] VITALS: BP 129/87; PULSE 99; RESP 18; TEMP 36.6; O2SAT 100
[2021-09-18] MEDS: 0.9% Saline Lock 10 ML Syringe IV (22:05)
[2021-09-19 03:15] VITALS: BP 124/82; PULSE 94; RESP 16; TEMP 36.7; O2SAT 97
[2021-09-19] MEDS: Acetaminophen 325 MG Tablet 650 MG PO (05:09)
[2021-09-19 05:58] LABS: Absolute Lymphocyte Count 1.16 X10^3/uL (0.83-4.51); Absolute Neutrophil Count 2.5 X10^3/uL (2.0-7.7); Basophil# 0.01 X10^3/uL; Basophil% 0.2 % (0-1); Eosinophil# 0.19 X10^3/uL; Eosinophils% 4.3 % (0-5); Hematocrit 38.2 % (37-47); Lymphocyte # 1.16 X10^3/ul (0.83-4.51); Lymphocyte % 26.1 % (19-41); Mean Corp Hgb Conc 36.6 g/dL (32-36); Mean Corpuscular Hgb 32.1 pg (27.0-32.0); Mean Corpuscular Volume 87.6 fL (81-99); Mean Platelet Vol. 10.7 fl (6.2-12.0); Monocyte# 0.53 X10^3/uL; Monocyte% 11.9 % (0-10); NRBC Flagged by Analyzer 0 % (0-5); Neutrophil # 2.54 X10^3/uL (2.7-7.7); Neutrophil % 57.1 % (47-70); Platelet Count 150 K/mm3 (150-450); RBC Distribution Width CV 14.6 % (11.6-14.6); RBC Distribution Width SD 46.3 fl (35.1-43.9); Red Blood Count 4.36 M/mm3 (4.2-5.4); White Blood Count 4.5 K/mm3 (4.4-11.0)
[2021-09-19 06:19] LABS: Anion Gap 4 (5-15); BUN 2 mg/dL (7-18); BUN/Creat Ratio 3.9 RATIO (10-20); Calcium,Total 8.4 mg/dL (8.5-10.1); Chloride 107 mmol/L (98-107); Creatinine, Serum 0.51 mg/dL (0.55-1.02); EST Glomerular Filtration Rate 129 mL/min (>60); Est Glom Filt Rate - Afr Amer 157 mL/min (>60); Estimated Creatinine Clearance 90.46 ml/min; Glucose 111 mg/dL (74-106); Potassium 3.6 mmol/L (3.5-5.1); Sodium Level 137 mmol/L (136-145)
--- NOTE | 2021-09-19 07:12 | PCM.DC.SUM ---
Providers Date of Admission: 09/16/21 Primary Care Physician: Dr. Edward Mc MD Reason For Visit: PANCREATITIS Diagnosis Discharge Diagnosis (1) Metabolic acidosis: Status: Acute Code(s): E87.2 - Acidosis (2) Acute alcoholic pancreatitis: Status: Acute Code(s): K85.20 - Alcohol induced acute pancreatitis without necrosis or infection Qualifiers: Acute pancreatitis complication: unspecified Qualified Code(s): K85.20 - Alcohol induced acute pancreatitis without necrosis or infection Medications at Discharge Home Medications aripiprazole 10 mg PO DAILY 03/05/19 denosumab 60 mg SC [id number] 05/28/19 buspirone 10 mg tablet 10 mg PO DAILY tab 06/25/19 acetaminophen 500 mg tablet 1,000 mg PO Q6H PRN 11/08/20 Lift Chair #1 ea 12/08/20 meloxicam 7.5 mg tablet 7.5 mg PO DAILY #30 tab 07/23/21 oxycodone-acetaminophen 5 mg-325 mg tablet 1 tab PO Q8H PRN 07/24/21 cholecalciferol (vitamin D3) 125 mcg PO DAILY 09/16/21 clobetasol 1 applic TOPICAL WE 09/16/21 multivitamin 1 tab PO QAM 09/16/21 ciprofloxacin HCl 500 mg PO BID #10 tab 09/19/21 pantoprazole [Protonix] 40 mg PO DAILY #60 tab 09/19/21 potassium chloride 20 meq PO BIDCM #0 tab 09/19/21 Hospital Course Summary of Care Provided Minutes Spent on Discharge: 35 Hospital Course: Patient is a 62-year-old lady with history of chronic alcohol dependence who presented with abdominal pain. CT of the abdomen obtained demonstrated features consistent with pancreatitis admitted to regular nursing floor for further management 1. Acute pancreatitis ?Alcohol induced ?Patient admitted to regular nursing floor for conservative management. Patient was kept n.p.o. and managed with pain and antinausea medication in addition to PPI. Plan is for patient to be started on clear liquid to be advanced as tolerated -09/18/2021; patient lipase levels still remain elevated. - Patient to follow-up with 180 for ongoing alcohol dependence 2. Hypokalemia ?Corrected per protocol ?09/18/2021 potassium significantly low at 2.9. Patient was given potassium replacement via both IV and p.o. route with repeat potassium ordered for subsequent monitoring 3. Acute cystitis with E. coli ?Patient started on p.o. Cipro 4. Severe malnutrition ?As evidenced by suboptimal energy intake severe weight loss and this is related to patient chronic pancreatitis as well as alcoholism. Recommendation as noted above by dietitian 5. Osteoporosis ?Patient is on denosumab did continue 6. Depression with anxiety ?Did continue with home meds 7. Chronic back pain ?Pain meds as needed 8. Chronic alcohol dependence ?Counseled on cessation patient encouraged to follow-up with [facility] counseling services on discharge 9. Bipolar disorder ?Did continue patient psychotropic medications 10. DVT prophylaxis ?Placed on Lovenox Physical Exam Narrative GENERAL: cooperative HEENT: Atraumatic; EYES; Anicteric, Normal Conjunctiva NECK; supple, normal thyroid, RESPIRATORY: Diminished to auscultation CARDIOVASCULAR: Regular S1 S2, GI: soft, normoactive bowel sounds, : No Renal angle tenderness; EXTREMITIES: No edema, no clubbing, MUSCULOSKELETAL: no muscle wasting NEURO: Awake; no lateralizing signs. SKIN: No Rash PSYCH; Flat affect Medical Records Data Medical Nutrition Assessment Dietitian: Malnutrition Criteria Met Start: 09/17/21 12:24 Freq: Status: Active Protocol: Document 09/17/21 12:[address] [facility] (Rec: 09/17/21 12:[address] 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 Recommendation Dietitian Recommendations/Changes As medically able, rec DEYSI to Regular low fat Will order 4 oz chocolate ensure enlive w/ medpass 4x/ day Weight / BMI Weight Weight: 68.4 kg Body Mass Index (BMI) 27.6 ABG / Lab / Microbiology Data Result Diagrams: 09/19/21 05:35 09/19/21 05:35 Laboratory: Laboratory Results - last 24 hr 09/18/21 13:59: Potassium 3.6 09/19/21 05:35: WBC 4.5, RBC 4.36, Hgb 14.0, Hct 38.2, MCV 87.6, MCH 32.1 H, MCHC 36.6 H, RDW Std Deviation 46.3 H, RDW Coeff of Laxmi 14.6, Plt Count 150, MPV 10.7, Immature Gran % (Auto) 0.400, Neut % (Auto) 57.1, Lymph % (Auto) 26.1, [place] % (Auto) 11.9 H, Eos % (Auto) 4.3, Baso % (Auto) 0.2, Absolute Neuts (auto) 2.5, Absolute Lymphs (auto) 1.16, Nucleated RBC % 0 09/19/21 05:35: Sodium 137, Potassium 3.6, Chloride 107, Carbon Dioxide 26.0, Anion Gap 4 L, BUN 2 L, Creatinine 0.51 L, Estim Creat Clear Calc 90.46, Est GFR (MDRD) Af Amer 157, Est GFR (MDRD) Non-Af 129, BUN/Creatinine Ratio 3.9 L, Glucose 111 H, Calcium 8.4 L Microbiology: Microbiology 09/16/21 02:40 Urine, Clean Catch Urine Culture - Final Presumptive E. coli D/C Instructions Discharge Diet: No restrictions Discharge Activity: Return to Normal Activity Call your doctor if you observe: Fever of 101 or Higher, Shortness of breath, Fainting spells and Chest pain Meaningful Use Info Meaningful Use Diagnoses (Choose all that apply): None applicable Discharge Plan Admission Admit Date/Time: 09/16/21 04:46 Attending Provider: Miguel Lyn Primary Care Provider: Edward Mc Discharge Orders/Prescriptions Prescriptions: New ciprofloxacin HCl 500 mg Tablet 500 mg PO BID Qty: 10 RF: 0 pantoprazole [Protonix] 40 mg tablet,delayed release (DR/EC) 40 mg PO DAILY Qty: 60 RF: 0 Continued buspirone 10 mg tablet 10 mg PO DAILY RF: 0 acetaminophen [Tylenol Extra Strength] 500 mg tablet 1,000 mg PO Q6H PRN (Reason: pain) RF: 0 oxycodone-acetaminophen [Percocet] 5-325 mg tablet 1 tab PO Q8H PRN (Reason: Pain) RF: 0 aripiprazole 10 MG tablet 10 mg PO DAILY RF: 0 denosumab 60 MG/ML syringe 60 mg SC [id number] RF: 0 multivitamin Tablet 1 tab PO QAM RF: 0 cholecalciferol (vitamin D3) 125 mcg (5,000 unit) capsule 125 mcg PO DAILY RF: 0 clobetasol 0.05 % shampoo 1 applic topical WE RF: 0 (DME) Lift Chair See Rx Instructions .Route .MEDSUPPLY Qty: 1 RF: 0 meloxicam [Mobic] 7.5 mg tablet 7.5 mg PO DAILY Qty: 30 RF: 1 Changed potassium chloride 20 mEq tablet extended release 20 meq PO BIDCM Qty: 0 RF: 0 Referrals / Follow Up: Edward Mc MD [Primary Care Provider] - Within 2 Weeks Disposition Disposition (needs filled in before D/C Order can be placed): Home, Self Care Charges/Coding Visit Charges Inpatient E&M: 26716 Disch Hosp
[2021-09-19] MEDS: Multivitamins,Therapeutic Tablet 1 TABLET PO (08:41)
[2021-09-19] MEDS: Potassium Chloride Oral Tablet 20 MEQ PO (08:41)
[2021-09-19] MEDS: Ciprofloxacin 500 MG Tablet PO (09:21)
[2021-09-19] MEDS: Enoxaparin 40 MG/0.4 ML Syringe SC (09:21)
[2021-09-19] MEDS: busPIRone 5 MG Tablet 10 MG PO (09:21)
[2021-09-19] MEDS: ARIPiprazole 10 MG Tablet PO (09:22)
[2021-09-19] MEDS: Cholecalciferol (VIT D3) 25 MCG TABLET (1,000 UNITS) 125 MCG PO (09:22)
[2021-09-19 10:09] VITALS: BP 134/92; PULSE 80; RESP 16; TEMP 36.8; O2SAT 97
[2021-09-19 10:18] VITALS: BP 134/94; PULSE 80; RESP 16; TEMP 36.8; O2SAT 97
--- NOTE | 2021-09-19 10:18 | CASEMGMT ---
Social Work Note SW reviewed chart. Pt stated that she recently started drinking ETOH, states last drink was 3/4. Per chart pt was drinking 1/3-1/2 bottle of diluted vodka daily. VIJAY in to speak with pt. SW introduced self and role at [facility]. Pt walking from bathroom to bed when this worker entered the room. Pt is fully dressed. Pt confirms she is going home today. SW spoke with pt about ETOH use. Pt confirms that she recently started drinking again. Pt states that in the last 6 months she has had lots of medical issues going on so she started drinking again. Pt states she knows not to drink. Pt states she feels better when she doesn't drink. Pt states she is also recently unemployed so she has nothing to do at home. SW spoke with pt about positive activities/hobbies she could do. Pt states she likes to cook but states she cannot stand longer than three minutes so cooking is difficult. Pt states he has a Home Health Worker that comes in 6 hrs a week to help her with cooking. Pt states that she also likes to read and states she needs to start reading again. SW offered to provide pt with ETOH resources and pt denied. Pt states she knows about the resources. Pt states she has been to [facility], [facility], [facility] and [facility] before. Pt states she told that physician she would follow up with [facility] at discharge. SW offered to make an appointment for pt and pt denied, states she will make an appointment herself. VIJAY asked pt if she felt like she needed any Home PT/OT or Outpatient therapy and pt denied. Pt denied additional needs or concerns at this time. VIJAY placed a call to pt's CM Natalie Rodriguez and left message updating her on discharge. VIJAY faxed discharge paperwork to Natalie Rodriguez. Shadia Fields ENROLLMENT COORDINATOR, HEEL SEAT POUNDER
--- NOTE | 2021-09-19 10:54 | CASEMGMT ---
ARTUR CM in to pt room. Pt dressed on edge of bed ready to dc. She states her taxi is to be here at 11am. Pt denies any homegoing needs other than her aides that come see her. She states she does have several friends calling her for support. No further needs at this time.
== END 2021-09-19 10:56 | disposition home or self-care (01) | DRG 282 ==
LOC: ED 03:03 → MS3 04:54
PROVIDERS: Admitting Provider Family Medicine; Emergency Provider Emergency Medicine; PCP Internal Medicine; Visit Provider Internal Medicine
DX: K85.20 Alcohol induced acute pancreatitis without necrosis or infection (principal); E43 Unspecified severe protein-calorie malnutrition; E87.2 Acidosis; K74.60 Unspecified cirrhosis of liver; F31.9 Bipolar disorder, unspecified; K86.1 Other chronic pancreatitis; K80.20 Calculus of gallbladder without cholecystitis without obstruction; M41.9 Scoliosis, unspecified; E87.6 Hypokalemia; F41.9 Anxiety disorder, unspecified; B96.20 Unspecified Escherichia coli [E. coli] as the cause of diseases classified elsewhere; N30.00 Acute cystitis without hematuria; M54.9 Dorsalgia, unspecified; E80.7 Disorder of bilirubin metabolism, unspecified; M81.0 Age-related osteoporosis without current pathological fracture; G89.29 Other chronic pain; Z79.1 Long term (current) use of non-steroidal anti-inflammatories (NSAID); Z79.899 Other long term (current) drug therapy
CPT/HCPCS: 36415; 74177; 80048; 80053; 80076; 80320; 80329; 81001; 82009; 82077; 83605; 83690; 83735; 84132; 85025; 85610; 87086; 87088; 87186; 99284; J7030; J7050; Q9967; A4216; G0480; J2405; J7799

== ENCOUNTER 2021-10-05 10:49 | Outpatient (CLI) | payer MEDICAID, SELFPAY ==
[2021-10-05 11:04] LABS: Bacteria 0 SEEN /hpf (None Seen); Mucous, Urine 0 SEEN /hpf (<or=2+); Red Blood Cells-Urine 0 SEEN /hpf (0-5); Squamous Epithelial Cells - UA 0 SEEN /hpf (5-10)
[2021-10-05 12:04] LABS: Color, Urine Yellow (Yellow); Glucose, Dipstick Normal (Normal); Ketone-Dipstick 5 mg/dl (Negative); Leukocyte Esterase-Dipstick 500 /ul (Negative); Nitrite-Dipstick Negative (Negative); Occult Blood-Urine Negative /ul (Negative); Protein-Dipstick Negative (Negative); Specific Gravity, Urine 1.015 (1.002-1.030); Urine Bilirubin Dipstick Negative (Negative); Urine Clarity Sl. Cloudy (Clear); Urine Urobilinogen Normal (Normal)
[2021-10-05 12:13] LABS: White Blood Cells 25-50 SEEN /hpf (0-5)
[2021-10-05 12:34] LABS: ALB/GLOB Ratio 0.9 RATIO (0.9-2.4); AST(SGOT) 15 U/L (15-37); Alanine Aminotransfer ALT/SGPT 20 U/L (13-56); Albumin, Serum 3.7 g/dL (3.2-5.0); Alkaline Phosphatase 105 U/L (45-117); Anion Gap 8 (5-15); BUN 16 mg/dL (7-18); BUN/Creat Ratio 22.1 RATIO (10-20); Calcium,Total 9.4 mg/dL (8.5-10.1); Chloride 104 mmol/L (98-107); Creatinine, Serum 0.72 mg/dL (0.55-1.02); EST Glomerular Filtration Rate 87 mL/min (>60); Est Glom Filt Rate - Afr Amer 105 mL/min (>60); Globulin 4.2 g/dL (2.2-4.2); Glucose 107 mg/dL (74-106); Lipase 142 U/L (73-393); Potassium 4.4 mmol/L (3.5-5.1); Protein, Total 7.9 g/dL (6.4-8.2); Sodium Level 138 mmol/L (136-145)
== END 2021-10-05 23:59 | disposition home or self-care (01) ==
LOC: BIMLAB 10:49
PROVIDERS: PCP Internal Medicine; Referring Provider Nurse Practitioner Family; Visit Provider Nurse Practitioner Family
DX: K85.20 Alcohol induced acute pancreatitis without necrosis or infection (principal); F10.20 Alcohol dependence, uncomplicated
CPT/HCPCS: 36415; 80053; 81001; 83690

== ENCOUNTER → 2021-12-07 | Outpatient (CLI) | payer MEDICAID, SELFPAY ==
[2021-12-08 00:06] LABS: Chlamydia By Nucleic Acid AMP Negative (Negative)
[2021-12-08 11:36] LABS: Gonococcus By Nucleic Acid AMP Negative (Negative)
[2021-12-12 09:23] LABS: HPV APTIMA, High Risk Negative (Negative)
== END | disposition home or self-care (01) ==
LOC: LABSPEC 09:26
PROVIDERS: PCP Internal Medicine; Visit Provider Nurse Practitioner Women's Health
DX: Z11.3 Encounter for screening for infections with a predominantly sexual mode of transmission (principal); Z12.4 Encounter for screening for malignant neoplasm of cervix; Z78.0 Asymptomatic menopausal state
CPT/HCPCS: 87491; 87591; 87624; 88175; G0145

== ENCOUNTER → 2022-01-18 | Outpatient (CLI) | payer MEDICAID, SELFPAY ==
[2022-01-18 16:47] LABS: CRP 3.87 mg/L (0.0-3.0); Erythrocyte Sedimentation Rate 22 mm/hr (0-30)
[2022-01-21 15:07] LABS: Anti-Centromere B Ab <0.2 AI (0.0-0.9); Anti-Chromatin <0.2 AI (0.0-0.9); Anti-Jo <0.2 AI (0.0-0.9); Anti-Scleroderma-70 AB <0.2 AI (0.0-0.9); RNP Ab <0.2 AI (0.0-0.9); SJOGREN'S Anti-SS-A test < 0.2 AI (0.0-0.9); SJOGREN'S Anti-SS-B test < 0.2 AI (0.0-0.9); Smith Ab <0.2 AI (0.0-0.9)
[2022-01-21 17:33] LABS: Endomysial Antibody IgA Negative (Negative)
[2022-01-21 19:53] LABS: Anti-Mitochondrial AB <20.0 Units (0.0-20.0); Anti-dsDNA Ab <1 IU/mL (0-9)
[2022-01-21 20:06] LABS: Immunoglobulin A 554 mg/dL (87-352); t-Transglutaminase IgA <2 U/mL (0-3)
[2022-01-24 00:07] LABS: Albumin 4.2 g/dL (2.9-4.4); Alpha-1-Globulins 0.3 g/dL (0.0-0.4); Alpha-2-Globulins 0.7 g/dL (0.4-1.0); Cytoplasmic Ab (C-ANCA) <1:20 titer (Neg:<1:20); Gamma Globulin 1.4 g/dL (0.4-1.8); Immunoglobulin A 540 mg/dL (87-352); Immunoglobulin E 38 IU/mL (6-495); Immunoglobulin G 1369 mg/dL (586-1602); Immunoglobulin M 67 mg/dL (26-217); PROEL- TOTAL PROTEIN 8.1 g/dL (6.0-8.5)
[2022-01-24 16:28] LABS: Anti-Smooth Muscle ABS 5 Units (0-19); Carbohydrate Ag 19-9 2261 11 U/mL (0-35)
[2022-01-24 16:29] LABS: Perinuclear Ab (P-ANCA) <1:20 titer (Neg:<1:20)
== END | disposition home or self-care (01) ==
LOC: BIMLAB 15:28
PROVIDERS: PCP Internal Medicine; Referring Provider Internal Medicine Gastroenterology; Visit Provider Internal Medicine Gastroenterology
DX: R19.7 Diarrhea, unspecified (principal); K85.90 Acute pancreatitis without necrosis or infection, unspecified
CPT/HCPCS: 36415; 82140; 82784; 82785; 83516; 84165; 85652; 86140; 86225; 86235; 86255; 86256; 86301; 86334

== ENCOUNTER → 2022-01-31 | Outpatient (CLI) | payer MEDICAID, SELFPAY ==
--- NOTE | 2022-01-31 06:30 | MRI_ITS ---
STUDY: MR CHOLANGIOPANCREATOGRAPHY (MRCP) REASON FOR EXAM: Female, 62 years old. PAIN CBD STONES PANCREATITIS pancreatitis Technologist Notes fecal incontinence TECHNIQUE: Standard MRCP technique was utilized. 3-D postprocessing images were obtained. COMPARISON: 09/16/2021 CT Abdomen/Pelvis FINDINGS: Gall Bladder: There is a solitary gallstone. Cystic duct: Normal with no demonstrated fixed filling defect. Intrahepatic ducts: Normal visualized intrahepatic ducts with no demonstrated fixed filling defect, dilation or stricture. Common hepatic duct: Normal with no demonstrated fixed filling defect, dilation or stricture. Common bile duct: Normal with no demonstrated fixed filling defect, dilation or stricture. Pancreatic duct: No dilation. 20 x 12 mm T2 hyperintense lesion in the pancreatic tail. Series 3 image 12. MRI/MRCP Abdomen without Contrast IMPRESSION: Cholelithiasis. Cystic lesion in the tail of the pancreas is identified. ACR White Paper guidelines (Angelica, et al. JACR 2017; 14(7):911-923) suggest a contrast-enhanced, pancreas-protocol abdominal CT or MR in 6 months or endoscopic ultrasound with fine needle aspiration. Electronically Signed: Ty Mckeon MD at 21:32 EDT ,
== END | disposition home or self-care (01) ==
PROVIDERS: PCP Internal Medicine; Referring Provider Internal Medicine Gastroenterology; Visit Provider Internal Medicine Gastroenterology
DX: K80.20 Calculus of gallbladder without cholecystitis without obstruction (principal); R15.9 Full incontinence of feces; K85.90 Acute pancreatitis without necrosis or infection, unspecified
CPT/HCPCS: 74181

== ENCOUNTER 2022-04-17 09:57 | Day surgery (SDC) | payer MEDICAID, SELFPAY ==
[2022-04-17 10:22] VITALS: BP 123/83; PULSE 122; RESP 18; TEMP 36.4; O2SAT 100; BMI 29.0
--- NOTE | 2022-04-17 10:30 | PCM.HP.BLA ---
History and Physical Date of Admission: 04/17/22 PRASHANT MAZARIEGOS, is a 61 F who presents to the office today for?Initial consult. Prashant established with this clinic 01.17.22 with referral from her PCP. She has a history of alcoholic pancreatitis with hospitalization .01.02-3 and continued alcohol intake (though wine only, not liquor) and failure to follow with the [facility] program. Additionally, has difficulty with full bowel incontinence with urgent postprandial diarrhea for the last year; occurrence is intermittent and will be absent for weeks and then present for days at a time, no abdominal pain or cramping. Agreeable to colonoscopy but declined to try pharmaceutical options with her PCP. Alcohol intake varies and will go for days with abstinence and will then have multiple vodka drinks in a day. CT abd/pel 3.01.02 with hepatic steatosis and hepatomegaly; cholelithiasis with mildly dilate CBD; pancreatic stranding indicative of pancreatitis with 1.7 cystic lesion, possible pseudocyst, IPMN or simple pancreatic cyst. ROS Const Constitutional: No anorexia, fatigue, fever(s), weight change or sleep problems Eyes Eyes: No change in vision ENT ENT: No abnormal hearing, difficulty swallowing, mouth lesions, tongue swelling or throat swelling Resp Respiratory: No cough or shortness of breath Cardio Cardiology: No chest pain at rest, chest pain with exertion, shortness of breath or dyspnea on exertion Gastro GI: No difficulty swallowing Genitourinary-Female: No difficulty urinating or burning urination Musc Musculoskeletal: No joint pain, joint swelling, muscle weakness or decreased muscle mass Skin Skin: No hair loss in leg, yellowing of the eye, itchy eyes, rash, skin ulcer or skin swelling Neuro Neurology: No abnormal hearing, abnormal movements, confusion, unsteady gait/balance or memory loss Psych Psychiatric: No anxiety, No confusion and No memory loss Endo Endocrine: No fatigue or weight change Aller/Imm Allergy/Immunologic: No itchy eyes, throat swelling or tongue swelling Santiago/Lymp Hematologic/Lymphatic: No easy bleeding, easy bruising or enlarged lymph nodes Exam Const General: cooperative and comfortable Nutritional Appearance: average body habitus and well nourished HENMT Head: normal to inspection Ears: hearing grossly normal bilaterally Nose: external nose normal Face and sinus: normal facial exam Mouth: oral mucosae normal Throat: posterior oropharynx normal Eyes General: appearance normal, both eyes and all related structures Neck Neck: normal visual inspection Chest Chest palpation & inspection: normal inspection of the chest and normal palpation of entire chest wall Resp Effort & Inspection: normal respiratory effort Auscultation: Bilateral: Clear to Auscultation Cardio Palpation: normal PMI Rate: regular rate Rhythm: regular rhythm GI Inspection: normal to inspection Auscultation: normal bowel sounds Percussion: normal to percussion Palpation: no hepatosplenomegaly Skin General: no rashes or lesions noted Neuro General: patient alert Extrem General: normal to inspection Psych Affect: normal affect Quality Reporting Tobacco Screening ([facility] 138) Smoking Status: Never smoker Assessment and Plan Assessment and Plan (1) Alcoholic pancreatitis: ?Status:?Chronic ?Plan: Recurrent alcoholic pancreatitis.? We talked completely regarding the issues that occur with acute recurrent pancreatitis or chronic pancreatitis.? She already has a cyst in the tail of the pancreas that could be secondary to likely malignancy.? I suspect it is pancreatitis.? she does carry less risk information.? She will undergo colonoscopy to evaluate her upper lower GI tract as well as MRI. (2) Diarrhea: ?Status:?Chronic (3) Pancreatitis: ?Status:?Acute ? ? ? Orders: Orders CRP Today R19.7 - Diarrhea, unspecified ? Erythrocyte Sed Rate Today R19.7 - Diarrhea, unspecified ? Anti-Mitochondrial AB Today R19.7 - Diarrhea, unspecified ? SUMAN Comprehensive Panel Today R19.7 - Diarrhea, unspecified ? ANCA Today R19.7 - Diarrhea, unspecified ? Anti-Smooth Muscle ABS Today R19.7 - Diarrhea, unspecified ? Celiac Disease Profile Today R19.7 - Diarrhea, unspecified ? Immunoglobulins G/A/M/E Today R19.7 - Diarrhea, unspecified ? AMOR + Protein Elect, Serum Today R19.7 - Diarrhea, unspecified ? Ammonia Today R19.7 - Diarrhea, unspecified ? MRCP Abdomen without Contrast Today K85.90 - Acute pancreatitis without necrosis or infection, unspecified ? CA 19-9 Serial Monitor Today K85.90 - Acute pancreatitis without necrosis or infection, unspecified ? Medications: New ursodiol 300 mg PO BID 60 caps 0RF ? ? I have re-examined the patient. There are no clinical changes since date of exam.
[2022-04-17] MEDS: Lactated Ringers 1,000 ML 15 ML IV (10:31)
[2022-04-17 11:26] VITALS: BP 123/83; BP 95/60; PULSE 103; RESP 18; O2SAT 98
--- NOTE | 2022-04-17 11:27 | OP.COLON_ITS ---
Patient Name: Salima Whitney Procedure Date: 04/17/2022 10:55 AM Date of : 1960 Age: 62 Procedure: Colonoscopy Indications: Clinically significant diarrhea of unexplained origin Providers: Dwayne Thompson DO Medicines: Monitored Anesthesia Care Patient Profile: Last Colonoscopy: more than 10 years ago. Complications: No immediate complications. Procedure: Pre-Anesthesia Assessment: - Prior to the procedure, a History and Physical was performed, and patient medications and allergies were reviewed. The risks and benefits of the procedure and the sedation options and risks were discussed with the patient. All questions were answered and informed consent was obtained. Patient identification and proposed procedure were verified by the physician in the pre-procedure area. Mental Status Examination: alert and oriented. Airway Examination: normal oropharyngeal airway and neck mobility. Respiratory Examination: clear to auscultation. CV Examination: normal. Prophylactic Antibiotics: The patient does not require prophylactic antibiotics. Prior Anticoagulants: The patient has taken no previous anticoagulant or antiplatelet agents. ASA Grade Assessment: II - A patient with mild systemic disease. After reviewing the risks and benefits, the patient was deemed in satisfactory condition to undergo the procedure. The anesthesia plan was to use monitored anesthesia care (MAC). Immediately prior to administration of medications, the patient was re-assessed for adequacy to receive sedatives. The heart rate, respiratory rate, oxygen saturations, blood pressure, adequacy of pulmonary ventilation, and response to care were monitored throughout the procedure. The physical status of the patient was re-assessed after the procedure. After I obtained informed consent, the scope was passed under direct vision. Throughout the procedure, the patient's blood pressure, pulse, and oxygen saturations were monitored continuously. The Colonoscope was introduced through the anus and advanced to the terminal ileum. The colonoscopy was performed without difficulty. The patient tolerated the procedure well. The quality of the bowel preparation was good. Scope In: 11:05:31 AM Scope Withdrawal Time 0 hours 10 minutes 33 seconds Scope Out: 11:20:13 AM Total Procedure Duration Time 0 hours 14 minutes 42 seconds Findings: The perianal and digital rectal examinations were normal. Two large localized angiodysplastic lesions with bleeding were found in the sigmoid colon and in the transverse colon. Coagulation for hemostasis using heater probe was successful. Estimated blood loss was minimal. The colon (entire examined portion) appeared normal. A few small-mouthed diverticula were found in the recto-sigmoid colon and sigmoid colon. The terminal ileum appeared normal. Impression: - Two bleeding colonic angiodysplastic lesions. Treated with a heater probe. - The entire examined colon is normal. - Diverticulosis in the recto-sigmoid colon and in the sigmoid colon. - The examined portion of the ileum was normal. - No specimens collected. Recommendation: - Discharge patient to home. - Resume previous diet. - Continue present medications. - Diarrhea is likely bile acid induced. - Repeat colonoscopy in 5 years for surveillance. Procedure Code(s): --- Professional --- 71994, Colonoscopy, flexible; with control of bleeding, any method CPT copyright 2017 [employer]. All rights reserved. The codes documented in this report are preliminary and upon syrup blender review may be revised to meet current compliance requirements. Dwayne Thompson DO 04/17/2022 11:26:47 AM This report has been signed electronically. Number of Addenda: 0 Note Initiated On: 04/17/2022 10:55 AM
--- NOTE | 2022-04-17 11:28 | OP.CCLET_ITS ---
04/17/2022 Edward Mc MD [address] [place] [address] [place] [address] Re : Colonoscopy procedure for Salima Sigg Dear Dr. Mc This procedure was performed on Sunday, April 17, 2022. My impressions and recommendations are as follows: Impressions : - Two bleeding colonic angiodysplastic lesions. Treated with a heater probe. - The entire examined colon is normal. - Diverticulosis in the recto-sigmoid colon and in the sigmoid colon. - The examined portion of the ileum was normal. - No specimens collected. Recommendations : - Discharge patient to home. - Resume previous diet. - Continue present medications. - Diarrhea is likely bile acid induced. - Repeat colonoscopy in 5 years for surveillance. My findings are described in the full procedure note, which is enclosed. If I can be of further assistance, please feel free to contact me at . Sincerely, Dwayne Friend, 04/17/2022 11:26:47 AM This report has been signed electronically.
[2022-04-17 11:30] VITALS: BP 123/83; BP 96/64; PULSE 102; RESP 16; TEMP 36.3; O2SAT 100
[2022-04-17 11:35] VITALS: BP 112/79; BP 123/83; PULSE 100; RESP 16; O2SAT 100
[2022-04-17 11:40] VITALS: BP 106/66; BP 123/83; PULSE 99; RESP 16; TEMP 36.1; O2SAT 100
[2022-04-17 12:11] VITALS: BP 123/83
== END 2022-04-17 12:30 | disposition home or self-care (01) ==
LOC: EN 09:58 → AC 10:00
PROVIDERS: PCP Internal Medicine; Referring Provider Internal Medicine Gastroenterology; Visit Provider Internal Medicine Gastroenterology
PROC: 0DJD8ZZ Inspection of Lower Intestinal Tract, Via Natural or Artificial Opening Endoscopic (ICD-10-PCS; CPT 45378; principal; 2022-04-17 10:55)
DX: K55.21 Angiodysplasia of colon with hemorrhage (principal); K86.0 Alcohol-induced chronic pancreatitis; K57.30 Diverticulosis of large intestine without perforation or abscess without bleeding; F10.10 Alcohol abuse, uncomplicated; M81.0 Age-related osteoporosis without current pathological fracture; M41.9 Scoliosis, unspecified; F41.9 Anxiety disorder, unspecified; F32.9 Major depressive disorder, single episode, unspecified; F12.90 Cannabis use, unspecified, uncomplicated; Z79.899 Other long term (current) drug therapy; Z98.890 Other specified postprocedural states
CPT/HCPCS: 45382; J7120; J2405

== ENCOUNTER → 2022-04-26 | Outpatient (CLI) | payer MEDICAID, SELFPAY ==
[2022-04-26 09:04] LABS: Bacteria 0 SEEN /hpf (None Seen); Mucous, Urine 0 SEEN /hpf (<or=2+); Red Blood Cells-Urine 0 SEEN /hpf (0-5); Squamous Epithelial Cells - UA 0 SEEN /hpf (5-10)
[2022-04-26 12:40] LABS: Color, Urine Yellow (Yellow); Glucose, Dipstick Normal (Normal); Ketone-Dipstick Negative (Negative); Leukocyte Esterase-Dipstick 100 /ul (Negative); Nitrite-Dipstick Negative (Negative); Occult Blood-Urine Negative /ul (Negative); Protein-Dipstick Negative (Negative); Urine Bilirubin Dipstick Negative (Negative); Urine Clarity Clear (Clear); Urine Urobilinogen Normal (Normal)
[2022-04-26 12:56] LABS: White Blood Cells 0-5 SEEN /hpf (0-5)
== END | disposition home or self-care (01) ==
LOC: LABSPEC 09:03
PROVIDERS: PCP Internal Medicine; Referring Provider Internal Medicine; Visit Provider Internal Medicine
DX: R39.15 Urgency of urination (principal)
CPT/HCPCS: 81001

== ENCOUNTER 2022-07-21 13:11 | Inpatient (IN) | payer MEDICAID, SELFPAY ==
[2022-07-21] VITALS (8 sets, daily range): BP systolic 141–163; BP diastolic 86–113; PULSE 85–124; RESP 16–18; TEMP 36.6–37.2; O2SAT 93–95; BMI 32.3; BMI 30.9
--- NOTE | 2022-07-21 13:52 | CT_ITS ---
HISTORY: vertigo. TECHNIQUE: Multiple axial images were obtained of the head without intravenous contrast. A radiation dose optimization technique was used for this scan. 252 images. COMPARISON: 07/06/2017. FINDINGS: BRAIN PARENCHYMA: Multiple foci and zones of low attenuation in the bilateral cerebral white matter compatible with chronic small vessel ischemic gliosis. No acute intra-axial hemorrhage identified. CSF SPACES: Mild generalized volume loss. No midline shift or other significant mass effect. No acute extra-axial hemorrhage seen. OTHER: Intact calvarium. No significant air fluid levels in the paranasal sinuses or mastoid air cells. Unremarkable orbits. CT/Brain/Head without Contrast IMPRESSION: No acute intracranial process identified. Chronic involutional and white matter changes. Electronically Signed: Janay Kelly MD at 14:33 EST ,
--- NOTE | 2022-07-21 13:52 | RAD_ITS ---
HISTORY: vertigo, irregular HR. TECHNIQUE: XR Chest 1 View. COMPARISON: 06/10/2020. FINDINGS: CARDIOMEDIASTINAL BORDERS: Cardiac silhouette within normal limits in size. Mediastinal contour unremarkable. LUNGS: Mild linear bibasilar opacities. PLEURA: No pleural effusion or pneumothorax seen. OSSEOUS STRUCTURES: Vertebroplasty of chronic thoracolumbar compression fractures. RAD/Chest 1 View (Portable) IMPRESSION: Mild bibasilar opacities likely atelectasis. Electronically Signed: Janay Kelly MD at 14:23 EST ,
--- NOTE | 2022-07-21 13:52 | EKG12_ITS ---
Test Reason : WEAKNESS Blood Pressure : / mmHG Vent. Rate : 087 BPM Atrial Rate : 087 BPM P-R Int : 168 ms QRS Dur : 060 ms QT Int : 358 ms P-R-T Axes : -07 028 020 degrees QTc Int : 430 ms Normal sinus rhythm Septal infarct , age undetermined Abnormal ECG Confirmed by AIDAN THOMAS, JUSTIN ([id number]), scientific editor EDITH QUINTERO ([id number]) on 07/22/2022 1:57:40 PM Referred By: Confirmed By:JUSTIN BERMUDEZ MD
[2022-07-21 14:10] LABS: Absolute Lymphocyte Count 2.63 X10^3/uL (0.83-4.51); Absolute Neutrophil Count 3.4 X10^3/uL (2.0-7.7); Basophil# 0.03 X10^3/uL; Basophil% 0.4 % (0-1); Eosinophil# 0.08 X10^3/uL; Eosinophils% 1.2 % (0-5); Hematocrit 42.7 % (37-47); Hemoglobin 13.9 g/dL (12.0-15.0); Lymphocyte # 2.63 X10^3/ul (0.83-4.51); Lymphocyte % 38.3 % (19-41); Mean Corp Hgb Conc 32.6 g/dL (32-36); Mean Corpuscular Hgb 31.5 pg (27.0-32.0); Mean Corpuscular Volume 96.8 fL (81-99); Mean Platelet Vol. 9.6 fl (6.2-12.0); Monocyte# 0.66 X10^3/uL; Monocyte% 9.6 % (0-10); NRBC Flagged by Analyzer 0 % (0-5); Neutrophil # 3.43 X10^3/uL (2.7-7.7); Neutrophil % 50.1 % (47-70); Platelet Count 233 K/mm3 (150-450); RBC Distribution Width CV 13.7 % (11.6-14.6); RBC Distribution Width SD 48.7 fl (35.1-43.9); Red Blood Count 4.41 M/mm3 (4.2-5.4); White Blood Count 6.9 K/mm3 (4.4-11.0)
[2022-07-21 14:20] LABS: Prothrombin Time (Protime)PT. 13.2 SECONDS (11.7-14.9)
[2022-07-21 14:21] LABS: Partial Thromboplast Time 25.7 Seconds (24.1-36.2)
[2022-07-21] MEDS: Ondansetron 4 MG/2 ML Vial IV (14:22)
[2022-07-21] MEDS: LORazepam 2 MG/ML Syringe 1 MG IV (14:24)
[2022-07-21 14:26] LABS: Alcohol, Blood (Medical)-Serum < 3.0 mg/dL
[2022-07-21 15:02] LABS: ALB/GLOB Ratio 0.8 RATIO (0.9-2.4); AST(SGOT) 27 U/L (15-37); Alanine Aminotransfer ALT/SGPT 23 U/L (13-56); Albumin, Serum 3.5 g/dL (3.2-5.0); Alkaline Phosphatase 135 U/L (45-117); Anion Gap 12 (5-15); BUN 11 mg/dL (7-18); BUN/Creat Ratio 16.5 RATIO (10-20); Calcium,Total 9.1 mg/dL (8.5-10.1); Chloride 101 mmol/L (98-107); Creatinine, Serum 0.67 mg/dL (0.55-1.02); EST Glomerular Filtration Rate 95 mL/min (>60); Est Glom Filt Rate - Afr Amer 115 mL/min (>60); Estimated Creatinine Clearance 67.97 ml/min; Globulin 4.3 g/dL (2.2-4.2); Glucose 128 mg/dL (74-106); Lipase 107 U/L (73-393); Potassium 3.5 mmol/L (3.5-5.1); Protein, Total 7.8 g/dL (6.4-8.2); Sodium Level 135 mmol/L (136-145); Troponin-I HS 7 pg/mL (3.0-54.0)
--- NOTE | 2022-07-21 15:32 | CT_ITS ---
EXAM: CT ANGIOGRAPHY HEAD AND NECK WITH INTRAVENOUS CONTRAST CLINICAL INDICATION: vertigo TECHNIQUE: [place]/head and neck CT angiography protocol performed with intravenous contrast. This CT exam was performed using one or more of the following dose reduction techniques: automated exposure control, adjustment of the mA and/or kV according to patient size, and/or use of iterative reconstruction technique. This report was created using [employer] report generation technology. MIP reconstructed images were created and reviewed. CONTRAST: IV 100mL [id number] RADIATION DOSE: CTDIvol = 19.73 mGy, DLP = 680.44 mGy-cm COMPARISON: None. FINDINGS: HEAD: RIGHT ANTERIOR CEREBRAL ARTERY: Unremarkable. No significant stenosis at the visualized segments. Anterior communicating artery is present. No aneurysm. RIGHT MIDDLE CEREBRAL ARTERY: Unremarkable. No significant stenosis at the visualized segments. No aneurysm. RIGHT POSTERIOR CEREBRAL ARTERY: Unremarkable. No occlusion or significant stenosis. No aneurysm. RIGHT INTRACRANIAL INTERNAL CAROTID ARTERY: Unremarkable. No significant stenosis. No dissection or occlusion. RIGHT INTRACRANIAL VERTEBRAL ARTERY: Unremarkable. No significant stenosis. No dissection or occlusion. LEFT ANTERIOR CEREBRAL ARTERY: Unremarkable. No significant stenosis at the visualized segments. No aneurysm. LEFT MIDDLE CEREBRAL ARTERY: Unremarkable. No significant stenosis at the visualized segments. No aneurysm. LEFT POSTERIOR CEREBRAL ARTERY: Unremarkable. No occlusion or significant stenosis. No aneurysm. LEFT INTRACRANIAL INTERNAL CAROTID ARTERY: See below. LEFT INTRACRANIAL VERTEBRAL ARTERY: Unremarkable. No significant stenosis. No dissection or occlusion. BASILAR ARTERY: Unremarkable. No significant stenosis. No aneurysm. OTHER VASCULATURE: There is mild atherosclerotic plaque formation of the origin of the left internal carotid artery with less than 50% cross sectional diameter stenosis. ALL ABOVE CRITERIA BY NASCET. There is calcified plaque formation of the right cavernous carotid artery, with a mild stenosis (less than 50%). ALL ABOVE CRITERIA BY NASCET. NECK: RIGHT COMMON CAROTID ARTERY: Unremarkable. No significant stenosis. No dissection or occlusion. RIGHT EXTRACRANIAL INTERNAL CAROTID ARTERY: Unremarkable. No significant stenosis. No dissection or occlusion. RIGHT EXTERNAL CAROTID ARTERY: Unremarkable. No occlusion. RIGHT EXTRACRANIAL VERTEBRAL ARTERY: Unremarkable. No significant stenosis. No dissection or occlusion. LEFT COMMON CAROTID ARTERY: Unremarkable. No significant stenosis. No dissection or occlusion. LEFT EXTRACRANIAL INTERNAL CAROTID ARTERY: See above. LEFT EXTERNAL CAROTID ARTERY: Unremarkable. No occlusion. LEFT EXTRACRANIAL VERTEBRAL ARTERY: Unremarkable. No significant stenosis. No dissection or occlusion. GREAT VESSELS OF AORTIC ARCH: There is calcified plaque formation of the left cavernous carotid artery, with a mild stenosis (less than 50%). ALL ABOVE CRITERIA BY NASCET. LUNG APICES: Unremarkable as visualized. HEAD and NECK: BONES/JOINTS: Unremarkable. No discrete lytic or blastic abnormalities. SOFT TISSUES: Unremarkable. CAROTID STENOSIS REFERENCE USING NASCET CRITERIA: % ICA stenosis = (1 - narrowest ICA diameter/diameter of distal cervical ICA) x 100. Mild - <50% stenosis. Moderate - 50-69% stenosis. Severe - 70-94% stenosis. Near occlusion - 95-99% stenosis. Occluded - 100% stenosis. CT/CTA Head AND Neck W/ Contrast IMPRESSION: 1. There is mild atherosclerotic plaque formation of the origin of the left internal carotid artery with less than 50% cross sectional diameter stenosis. ALL ABOVE CRITERIA BY NASCET. 2. There is calcified plaque formation of the right cavernous carotid artery, with a mild stenosis (less than 50%). ALL ABOVE CRITERIA BY NASCET. 3. There is calcified plaque formation of the left cavernous carotid artery, with a mild stenosis (less than 50%). ALL ABOVE CRITERIA BY NASCET. Electronically Signed: Ty Mckeon MD at 16:30 EST ,
--- NOTE | 2022-07-21 15:35 | EX.ED.DYSGE1 ---
HPI History of Present Illness Chief Complaint: Weakness Detail of Chief Complaint: swimming sensation Informant: patient Onset/Context/Timing Onset: Today Context: Onset with activity (PT) and Sudden Onset Quality: feels like a swimming sensation Current Severity: Moderate Associated Symptoms Associated Symptoms: nausea Narrative Narrative: no vision or speech changes, no unilateral weakness or facial droop, no hearing changes or pain Prior similar symptoms: No Recent Illness/Hospitalization: No PFSH PFSH Medical History Alcohol use Alcohol use disorder, moderate, dependence Alcoholic pancreatitis Anxiety Bipolar disorder Bipolar II disorder Bowel incontinence Compression fracture Debility Depression Difficulty swallowing Elevated blood pressure reading Hypertension Injury of head and neck Leg cramps Marijuana use Neck pain Non-smoker Osteoporosis Pain at injection site Scalp psoriasis Scoliosis Seborrheic dermatitis Shortness of breath on exertion Urinary incontinence Urinary urgency Walker as ambulation aid Wears contact lenses Home Medications acetaminophen 500 mg tablet (Tylenol Extra Strength) 1,000 mg PO Q6H PRN pain 11/08/20 [History Last Taken 11/08/20 06:00] Lift Chair #1 ea 12/08/20 [Rx Last Taken Unknown] cholecalciferol (vitamin D3) 125 mcg (5,000 unit) capsule 125 mcg PO DAILY supplement 09/16/21 [History Last Taken 09/13/21] clobetasol 0.05 % shampoo 1 applic topical WE eczema 09/16/21 [History Last Taken 09/12/21] multivitamin 1 tab PO QAM supplement 09/16/21 [History Last Taken 09/13/21] diaper,brief,adult,disposable (Adjustable Underwear) #200 ea 11/20/21 [Rx Last Taken Unknown] denosumab 60 mg/mL subcutaneous syringe 60 mg subcut [id number] osteoporosis 12/06/21 [History Last Taken Unknown] ketoconazole 2 % shampoo 1 applic topical 2XW #120 mL 01/23/22 [Rx Last Taken Unknown] ursodiol 300 mg capsule 300 mg PO BID #60 caps 03/01/22 [Rx Last Taken Unknown] hydrocortisone 2.5 % topical cream 1 applic topical BID PRN rash #30 grams 03/26/22 [Rx Last Taken Unknown] potassium chloride 20 mEq tablet,extended release 20 meq PO DAILY supplement 04/15/22 [History Last Taken Unknown] ondansetron HCl 8 mg tablet 8 mg PO Q8H PRN nausea and vomiting #14 tabs 04/16/22 [Rx Last Taken Unknown] blood pressure monitor #1 ea 04/25/22 [Rx Last Taken Unknown] thnsoz-clpkyyvu-ytizntj 25,000-79,000-105,000 unit capsule,delayed rel (Zenpep) 1 cap PO TID #90 caps 05/01/22 [Rx Last Taken Unknown] metoprolol succinate 50 mg tablet,extended release 24 hr 50 mg PO BID 3 months #180 tabs 05/23/22 [Rx Last Taken Unknown] aripiprazole 10 mg tablet 10 mg PO DAILY anxiety #30 tabs 06/20/22 [Rx Last Taken Unknown] meloxicam 15 mg tablet 15 mg PO DAILY PRN pain #90 tabs 06/24/22 [Rx Last Taken Unknown] tizanidine 4 mg capsule 4 mg PO QHS PRN muscle spasticity #30 caps 07/10/22 [Rx Last Taken Unknown] buspirone 10 mg tablet 10 mg PO DAILY Anxiety 07/21/22 [History Last Taken Unknown] Allergy/AdvReac Type Severity Reaction Status Date / Time No Known Allergies Allergy Verified 07/21/22 13:18 Family History Other Heart disease Osteoporosis Surgical History History of back surgery History of esophagogastroduodenoscopy (EGD) History of tubal ligation History of wisdom tooth extraction Hx of kyphoplasty Hx of total hip arthroplasty S/P kyphoplasty Social History household members: none current occupational status: disabled Smoking Status: Former smoker alcohol intake: current alcohol intake frequency: a few times a month substance use type: does not use what type of physical activity do you participate in: none seatbelt use: always do you feel safe at home: Yes additional social history: single ROS ROS ED Constitutional Constitutional ED: Denies chills or fever(s) Eyes Eyes: Denies blurry vision, change in vision or diplopia ENT ENT ED: Denies ear pain, rhinorrhea or sore throat Cardiovascular Cardiovascular: Denies chest pain Respiratory/Chest Respiratory/Chest: Denies cough or dyspnea Gastrointestinal Gastrointestinal: Reports nausea; Denies abdominal pain, constipation, diarrhea or vomiting Genitourinary Genitourinary ED: Denies dysuria Musculoskeletal Musculoskeletal: Denies arthralgias Integumentary Denies abscess Neurologic Neurologic: Denies headache(s), paresthesias or weakness Psychiatric Psychiatric: Denies anxiety Endocrine Endocrinology: Denies cold intolerance Hematologic/Lymphatic Hematologic/Lymphatic: Reports systems reviewed and no addt'l complaints, except as documented Allergic/Immunologic Allergic/Immunologic ED: Denies mouth swelling EXAM Physical Exam Const Vital Signs: 07/21/22 13:12 07/21/22 13:17 07/21/22 14:54 Temperature 99.0 F Temperature Source Oral Pulse Rate 100 96 Respiratory Rate 18 16 Respiratory Effort Normal Non-Labored Respiratory Pattern Normal Blood Pressure 163/110 H 155/108 H Blood Pressure Mean 127 123 Pulse Ox 95 95 Oxygen Delivery Method Room Air Room Air Positive well nourished and well developed General Appearance ED: well developed HEENT Reports moist mucous membranes Eyes PERRL and EOMs intact bilaterally Neck no lymphadenopathy Resp normal respiratory effort and clear to auscultation bilaterally Cardio regular rate and regular rhythm GI normal to inspection, nondistended, normoactive bowel sounds Extremity General Extremety ED: Negative for tenderness Neuro oriented x3, CN's II-XII intact bilaterally and no sensory deficits noted Sensorium / Orientation: alert Sensory Exam: No sensory level loss detected Motor Exam: general weakness Psych mental status grossly normal Skin no rashes or lesions noted MDM MDM MDM Narrative Medical decision making narrative: Patient presents for possible vertigo. She describes it as a swimming sensation. This started while she was doing physical therapy, and moving. She had nausea with this. It sounds more peripheral, but I will check a head CT and work-up. She also has a history of alcohol abuse. She had been sober for several months, but started between and to drink again. She is drinking half a bottle of vodka per day. She stopped [address] brain showed nothing acute. I agree with the radiologist interpretation. Chest x-ray was reviewed by the radiologist and myself and showed bibasilar atelectasis. EKG showed sinus rhythm at a rate of [address] and T wave changes. This was interpreted by me. CBC was normal. Sodium 135, glucose 128, alkaline phosphatase 135, alcohol negative. Alcohol withdrawal was considered. The rest of her work-up was all fairly unremarkable. I also considered central and peripheral causes of vertigo. Patient had difficulty ambulating despite being treated with Ativan. She has some social issues. She attempted to have someone help her at home but does not feel that she can make it at home. I contacted the hospitalist to evaluate. Patient will be treated with meclizine. Hospitalist advised to check CTA head and neck. Oncoming physician will check the results. We will hold the patient in the ED until the results are done. Impression #1 vertigo Impression #2 history of alcohol abuse Disposition is admission Lab Data Attestation: I reviewed the patient's lab results. Labs: Laboratory Results - last 24 hr 07/21/22 07/21/22 07/21/22 13:57 13:57 13:57 WBC 6.9 RBC 4.41 Hgb 13.9 Hct 42.7 MCV 96.8 MCH 31.5 MCHC 32.6 RDW Std Deviation 48.7 H RDW Coeff of Laxmi 13.7 Plt Count 233 MPV 9.6 Immature Gran % (Auto) 0.400 Neut % (Auto) 50.1 Lymph % (Auto) 38.3 [place] % (Auto) 9.6 Eos % (Auto) 1.2 Baso % (Auto) 0.4 Absolute Neuts (auto) 3.4 Absolute Lymphs (auto) 2.63 Nucleated RBC % 0 PT 13.2 INR 1.0 APTT 25.7 Sodium 135 L Potassium 3.5 Chloride 101 Carbon Dioxide 22.0 Anion Gap 12 BUN 11 Creatinine 0.67 Estim Creat Clear Calc 67.97 Est GFR (MDRD) Af Amer 115 Est GFR (MDRD) Non-Af 95 BUN/Creatinine Ratio 16.5 Glucose 128 H Calcium 9.1 Total Bilirubin 1.00 AST 27 ALT 23 Alkaline Phosphatase 135 H Troponin I High Sens 7 Total Protein 7.8 Albumin 3.5 Globulin 4.3 H Albumin/Globulin Ratio 0.8 L Lipase 107 Ethyl Alcohol 07/21/22 13:57 WBC RBC Hgb Hct MCV MCH MCHC RDW Std Deviation RDW Coeff of Laxmi Plt Count MPV Immature Gran % (Auto) Neut % (Auto) Lymph % (Auto) [place] % (Auto) Eos % (Auto) Baso % (Auto) Absolute Neuts (auto) Absolute Lymphs (auto) Nucleated RBC % PT INR APTT Sodium Potassium Chloride Carbon Dioxide Anion Gap BUN Creatinine Estim Creat Clear Calc Est GFR (MDRD) Af Amer Est GFR (MDRD) Non-Af BUN/Creatinine Ratio Glucose Calcium Total Bilirubin AST ALT Alkaline Phosphatase Troponin I High Sens Total Protein Albumin Globulin Albumin/Globulin Ratio Lipase Ethyl Alcohol < 3.0 Radiography Diagnostic Testing: Clinical Impression(s) from Imaging Studies Brain CT 07/21/22 13:52 IMPRESSION: No acute intracranial process identified. Chronic involutional and white matter changes. Electronically Signed: Janay Kelly MD at 14:33 EST , Chest X-Ray 07/21/22 13:52 IMPRESSION: Mild bibasilar opacities likely atelectasis. Electronically Signed: Janay Kelly MD at 14:23 EST , Discharge Plan Triage Chief Complaint: Weakness ED Provider: Garrison Soto Dx/Rx/DC Orders Prescriptions: No Action acetaminophen [Tylenol Extra Strength] 500 mg tablet 1,000 mg PO Q6H PRN (Reason: pain) ketoconazole 2 % shampoo 1 applic topical 2XW Qty: 120 2RF (DME) Adjustable Underwear Misc See Rx Instructions .ROUTE .MEDSUPPLY Qty: 200 3RF Rx Instructions: As directed Zenpep 25,000-79,000- 105,000 unit capsule,delayed release(DR/EC) 1 cap PO TID Qty: 90 3RF Rx Instructions: administer with meals and/or snacks hydrocortisone 2.5 % cream 1 applic topical BID PRN (Reason: rash) Qty: 30 0RF ondansetron HCl 8 mg tablet 8 mg PO Q8H PRN (Reason: nausea and vomiting) Qty: 14 0RF (DME) blood pressure monitor Kit See Rx Instructions .MEDSUPPLY Qty: 1 0RF Rx Instructions: Check blood pressure daily for hypertension I10 metoprolol succinate 50 mg tablet extended release 24 hr 50 mg PO BID 90 Days Qty: 180 2RF aripiprazole 10 mg tablet 10 mg PO DAILY Qty: 30 2RF denosumab 60 mg/mL syringe 60 mg SC [id number] multivitamin Tablet 1 tab PO QAM cholecalciferol (vitamin D3) 125 mcg (5,000 unit) capsule 125 mcg PO DAILY clobetasol 0.05 % shampoo 1 applic topical WE potassium chloride 20 mEq tablet extended release 20 meq PO DAILY buspirone 10 mg tablet 10 mg PO DAILY (DME) Lift Chair See Rx Instructions .Route .MEDSUPPLY Qty: 1 0RF Rx Instructions: As directed ursodiol 300 mg capsule 300 mg PO BID Qty: 60 1RF meloxicam 15 mg tablet 15 mg PO DAILY PRN (Reason: pain) Qty: 90 0RF tizanidine 4 mg capsule 4 mg PO QHS PRN (Reason: muscle spasticity) Qty: 30 0RF Primary Care Provider: Edward Mc Referrals: Edward Mc MD [Primary Care Provider] -
[2022-07-21 15:43] LABS: Color, Urine Yellow (Yellow); Glucose, Dipstick Normal (Normal); Ketone-Dipstick 15 mg/dl (Negative); Leukocyte Esterase-Dipstick 500 /ul (Negative); Nitrite-Dipstick Positive (Negative); Occult Blood-Urine 25 /ul (Negative); Protein-Dipstick 30 mg/dl (Negative); Urine Bilirubin Dipstick Negative (Negative); Urine Clarity Cloudy (Clear); Urine Urobilinogen Normal (Normal)
[2022-07-21 15:53] LABS: White Blood Cells 25-50 SEEN /hpf (0-5)
[2022-07-21 15:54] LABS: Bacteria 4+ /hpf (None Seen); Mucous, Urine RARE /hpf (<or=2+); Red Blood Cells-Urine 0-5 SEEN /hpf (0-5); Squamous Epithelial Cells - UA 0-5 SEEN /hpf (5-10)
[2022-07-21] MEDS: Meclizine HCl 25 MG Tablet PO (15:58)
--- NOTE | 2022-07-21 16:05 | PCM.HP.STD ---
HPI - General General Date of Admission: 07/21/22 Date of Service: 07/21/22 Chief Complaint: Weakness/vertigo HPI Narrative PRASHANT MAZARIEGOS, is a 62 F who presented to the emergency department was coming hospital on 07/21/2022 complaining of a swimming sensation in her head. She is having difficulty describing exactly what she senses however it sounds somewhat vertiginous. She reports that she was feeling fine when she woke up and she laid down to do her back exercises because she had to take her garbage out as her home health aide has not come this week because they cannot find her. After she did her exercises she developed a sensation in her head. She called the squad and had significant trouble ambulating out to the squad when they got there. She felt like she was drifting to the right. She denied any associated tingling numbness or weakness that was focal. She states after arriving here she was given some Zofran and Ativan which seemed to help her symptoms. She had 1 episode of emesis after returning from her CT of head but at the time of my evaluation she indicated she was feeling much better. She denies having any fever or chills at home, URI symptoms, cough, chest pain, shortness of breath, change in bowel habits or urinary symptoms. She does have chronic urinary incontinence. She does admit to regular alcohol use but states she has not had anything to consume in about 2 days. She states she was consuming heavy alcohol intake between and . She indicates she is never had any significant withdrawal symptoms when she stops drinking. Vital signs at the time of arrival to emergency department showed a temperature of 99, heart rate 100, blood pressure was 163/100, respiratory rate was 18 and oxygen saturation was 95% on room air. Her CBC is unremarkable. Coags are normal. Her chemistry panel is unremarkable other than a serum glucose of 128. Her liver functions are normal. Her troponin was 7. Her EKG showed normal sinus rhythm with normal intervals and no ST-T wave changes consistent with acute ischemia. Her UA was suggestive of infection having occult blood, nitrites, leuk esterase, 25-50 WBCs per hpf and 4+ bacteria. Her alcohol level was negative. Her chest x-ray shows mild bibasilar opacities suggestive of atelectasis. A CT of the head was performed and showed no acute intracranial processes with chronic involutional white matter changes. CTA of the head and neck was pending on admission. [facility] Medical History Alcohol use Alcohol use disorder, moderate, dependence Alcoholic pancreatitis Anxiety Bipolar disorder Bipolar II disorder Bowel incontinence Compression fracture Debility Depression Difficulty swallowing Elevated blood pressure reading Hypertension Injury of head and neck Leg cramps Marijuana use Neck pain Non-smoker Osteoporosis Pain at injection site Scalp psoriasis Scoliosis Seborrheic dermatitis Shortness of breath on exertion Urinary incontinence Urinary urgency Walker as ambulation aid Wears contact lenses Home Medications acetaminophen 500 mg tablet (Tylenol Extra Strength) 1,000 mg PO Q6H PRN pain 11/08/20 [History Last Taken 11/08/20 06:00] Lift Chair #1 ea 12/08/20 [Rx Last Taken Unknown] cholecalciferol (vitamin D3) 125 mcg (5,000 unit) capsule 125 mcg PO DAILY supplement 09/16/21 [History Last Taken 09/13/21] clobetasol 0.05 % shampoo 1 applic topical WE eczema 09/16/21 [History Last Taken 09/12/21] multivitamin 1 tab PO QAM supplement 09/16/21 [History Last Taken 09/13/21] diaper,brief,adult,disposable (Adjustable Underwear) #200 ea 11/20/21 [Rx Last Taken Unknown] denosumab 60 mg/mL subcutaneous syringe 60 mg subcut [id number] osteoporosis 12/06/21 [History Last Taken Unknown] ketoconazole 2 % shampoo 1 applic topical 2XW #120 mL 01/23/22 [Rx Last Taken Unknown] ursodiol 300 mg capsule 300 mg PO BID #60 caps 03/01/22 [Rx Last Taken Unknown] hydrocortisone 2.5 % topical cream 1 applic topical BID PRN rash #30 grams 03/26/22 [Rx Last Taken Unknown] potassium chloride 20 mEq tablet,extended release 20 meq PO DAILY supplement 04/15/22 [History Last Taken Unknown] ondansetron HCl 8 mg tablet 8 mg PO Q8H PRN nausea and vomiting #14 tabs 04/16/22 [Rx Last Taken Unknown] blood pressure monitor #1 ea 04/25/22 [Rx Last Taken Unknown] gkhnne-xnllrlul-jilywpt 25,000-79,000-105,000 unit capsule,delayed rel (Zenpep) 1 cap PO TID #90 caps 05/01/22 [Rx Last Taken Unknown] metoprolol succinate 50 mg tablet,extended release 24 hr 50 mg PO BID 3 months #180 tabs 05/23/22 [Rx Last Taken Unknown] aripiprazole 10 mg tablet 10 mg PO DAILY anxiety #30 tabs 06/20/22 [Rx Last Taken Unknown] meloxicam 15 mg tablet 15 mg PO DAILY PRN pain #90 tabs 06/24/22 [Rx Last Taken Unknown] tizanidine 4 mg capsule 4 mg PO QHS PRN muscle spasticity #30 caps 07/10/22 [Rx Last Taken Unknown] buspirone 10 mg tablet 10 mg PO DAILY Anxiety 07/21/22 [History Last Taken Unknown] Allergy/AdvReac Type Severity Reaction Status Date / Time No Known Allergies Allergy Verified 07/21/22 13:18 Family History Other Heart disease Osteoporosis Surgical History History of back surgery History of esophagogastroduodenoscopy (EGD) History of tubal ligation History of wisdom tooth extraction Hx of kyphoplasty Hx of total hip arthroplasty S/P kyphoplasty Social History (Updated 07/21/22 @ 16:[address] Melanie Wu DO) household members: none current occupational status: disabled Smoking Status: Former smoker alcohol intake: current alcohol intake frequency: 3 or more drinks per day details: Had been drinking heavily since up until the last 2 days substance use type: does not use what type of physical activity do you participate in: none seatbelt use: always do you feel safe at home: Yes additional social history: single ROS Constitutional Constitutional: Denies anorexia, change in weight, chills, fatigue, fever(s), malaise, night sweats, weakness or other Eyes Eyes: Denies blurry vision, change in eye color, change in vision, discharge from eye(s), double vision, erythema, eye pain, loss of vision or other ENT HEENT: Denies abnormal hearing, dysphagia, ear pain, epistaxis, headache(s), hearing loss, nasal congestion, nasal discharge, post nasal drip, sinus pressure, sore throat or other Cardiovascular Cardiovascular: Reports lightheadedness; Denies chest pain, claudication, dyspnea on exertion, edema, orthopnea, palpitations, paroxysmal nocturnal dyspnea, rapid heart rate, syncope or other Respiratory/Chest Respiratory/Chest: Denies cough, dyspnea, excessive phlegm production, hemoptysis, productive cough, shortness of breath at rest, shortness of breath with exertion, wheezing or other Gastrointestinal Gastrointestinal: Reports loose stools, nausea and vomiting; Denies abdominal pain, coffee ground emesis, constipation, diarrhea, dyspepsia, hematemesis, hematochezia, melena or other Genitourinary Genitourinary: Reports urinary incontinence; Denies burning urination, difficulty urinating, dysuria, hematuria, nocturia, urinary frequency, urinary hesitancy, urinary urgency or other Musculoskeletal Musculoskeletal: Reports back pain and neck pain; Denies arthralgias, joint pain, joint stiffness, joint swelling, myalgias or other Neurologic Neurologic: Reports disequilibrium and dizziness; Denies abnormal gait, abnormal speech, confusion, focal weakness, headache(s), numbness, paresthesias, seizure-like activity, seizures, syncope, tingling, tremor(s) or other Psychiatric Psychiatric: Reports anxiety and depression; Denies homicidal ideation, suicidal ideation or other Endocrine Endocrinology: Denies change in body appearance, cold intolerance, excessive sweating, heat intolerance, polydipsia, polyuria or other Hematologic/Lymphatic Hematologic/Lymphatic: Denies anemia, easy bleeding, easy bruising, lymphadenopathy or other Allergic/Immunologic Allergic/Immunologic: Denies rhinitis, hives, eczemia, asthma or other Vital Signs Vital Signs Vital Signs: 07/21/22 13:12 07/21/22 13:17 07/21/22 14:54 Temperature 99.0 F Temperature Source Oral Pulse Rate 100 96 Respiratory Rate 18 16 Respiratory Effort Normal Non-Labored Respiratory Pattern Normal Blood Pressure 163/110 H 155/108 H Blood Pressure Mean 127 123 Pulse Ox 95 95 Oxygen Delivery Method Room Air Room Air 07/21/22 15:59 Temperature 98.5 F Temperature Source Oral Pulse Rate 100 Respiratory Rate 16 Respiratory Effort Respiratory Pattern Blood Pressure 149/101 H Blood Pressure Mean 117 Pulse Ox 93 Oxygen Delivery Method Room Air Weight Weight: 80.195 kg Body Mass Index (BMI) 32.3 Physical Exam Const alert, oriented x3, no apparent distress and well nourished Constitutional Narrative: Obese, white female, sitting up in bed, appears comfortable and nontoxic General Appearance: cooperative HEENT normocephalic, head/scalp atraumatic, hearing grossly normal bilaterally and moist oral mucous membranes Eyes PERRL, EOMs intact bilaterally and conjunctivae normal Neck no lymphadenopathy, supple, no JVD and no carotid bruits Resp normal respiratory effort, no retractions, no use of accessory muscles and clear to auscultation bilaterally Resp Narrative: Diffusely diminished but clear Auscultation: Negative for crackles, rhonchi or wheezes Cardio regular rate, regular rhythm, S1 normal heart sound, S2 normal heart sound, no murmurs, no rub, no gallops and no clicks GI normal to inspection, nondistended, normoactive bowel sounds, soft to palpation and non-tender Extremity no clubbing, cyanosis or edema Extremity Narrative: 2+ pedal pulses Skin no rashes or lesions noted, no wounds, skin turgor normal, no jaundice, no petechiae and no mottling Neuro oriented x3, CN's II-XII intact bilaterally, moves all extremities and no focal motor deficits Neuro Narrative: Proximal muscle weakness but distal extremities are 5 out of 5 Speech: speech normal Psych Mood & Affect: anxious Results Lab / Micro Data Result Diagrams: 07/21/22 13:57 07/21/22 13:57 Labs: Laboratory Results - last 24 hr 07/21/22 13:57: WBC 6.9, RBC 4.41, Hgb 13.9, Hct 42.7, MCV 96.8, MCH 31.5, MCHC 32.6, RDW Std Deviation 48.7 H, RDW Coeff of Laxmi 13.7, Plt Count 233, MPV 9.6, Immature Gran % (Auto) 0.400, Neut % (Auto) 50.1, Lymph % (Auto) 38.3, [place] % (Auto) 9.6, Eos % (Auto) 1.2, Baso % (Auto) 0.4, Absolute Neuts (auto) 3.4, Absolute Lymphs (auto) 2.63, Nucleated RBC % 0 07/21/22 13:57: PT 13.2, INR 1.0, APTT 25.7 07/21/22 13:57: Sodium 135 L, Potassium 3.5, Chloride 101, Carbon Dioxide 22.0, Anion Gap 12, BUN 11, Creatinine 0.67, Estim Creat Clear Calc 67.97, Est GFR (MDRD) Af Amer 115, Est GFR (MDRD) Non-Af 95, BUN/Creatinine Ratio 16.5, Glucose 128 H, Calcium 9.1, Total Bilirubin 1.00, AST 27, ALT 23, Alkaline Phosphatase 135 H, Troponin I High Sens 7, Total Protein 7.8, Albumin 3.5, Globulin 4.3 H, Albumin/Globulin Ratio 0.8 L, Lipase 107 07/21/22 13:57: Ethyl Alcohol < 3.0 07/21/22 15:15: Urine Color Yellow, Urine Clarity Cloudy, Urine pH 7.0, Ur Specific [place] 1.010, Urine Protein 30 H, Urine Glucose (UA) Normal, Urine Ketones 15 H, Urine Occult Blood 25 H, Urine Nitrite Positive H, Urine Bilirubin Negative, Urine Urobilinogen Normal, Ur Leukocyte Esterase 500 H, Urine RBC 0-5 SEEN, Urine WBC 25-50 SEEN, Ur Squamous Epith Cells 0-5 SEEN, Urine Bacteria 4+, Urine Mucus RARE Radiology Impression Brain CT 07/21/22 13:52 IMPRESSION: No acute intracranial process identified. Chronic involutional and white matter changes. Electronically Signed: Janay Kelly MD at 14:33 EST Reading Location ID and State: [facility] / [place] Tel , Service support , Chest X-Ray 07/21/22 13:52 IMPRESSION: Mild bibasilar opacities likely atelectasis. Electronically Signed: Janay Kelly MD at 14:23 EST , Assessment & Plan Assessment/Plan (1) UTI (urinary tract infection): (2) Vertigo: (3) Generalized weakness: (4) Alcohol abuse: PLAN: Plan Vertigo -Patient having significant difficulty describing the sensation -Sounds vertiginous overall -CTA of head with pending results at this time -Check MRI -Patient with no focal deficits -Check orthostatic vitals -PT/OT consultations -Case management consultation as patient may need placed prior to discharge home Urinary tract infection -UA is consistent with UTI -Patient has history of urinary incontinence and wears pads frequently -Culture sent -Start ceftriaxone 1 g every 24 Generalized weakness -PT/OT consultation Alcohol abuse -Patient has been drinking heavily since -Encourage ongoing cessation -No alcohol in the last 48 hours -No current sign withdrawal -Patient states that she is not had any withdrawal when she stopped drinking previously -CIWA with as needed Ativan -Monitor closely for any phenobarbital needs Osteoporosis -Continue outpatient injections -Restart vitamin D at discharge Chronic pancreatitis -Continue Creon -Encourage cessation of alcohol use -Continue ursodiol Hypertension -Continue home metoprolol Chronic pain -Hold home meloxicam M -Continue home-continue on all Bipolar 2 disorder -Follows outpatient with Dr. Johnston -Continue home Abilify -Continue home BuSpar DVT prophylaxis -Lovenox -SCDs CODE STATUS -Full code is verified prior to admission the emergency department Charges/Coding Visit Charges Inpatient E&M: 97316 Init Hosp L2
[2022-07-21] MEDS: Creon 24,000 unit DR Capsule 1 CAP PO (17:37)
[2022-07-21] MEDS: Metoprolol(XL)Succ 50 MG Tablet PO (21:37)
[2022-07-21] MEDS: Acetaminophen 500 MG Tablet 1000 MG PO (21:38)
[2022-07-21] MEDS: Ursodiol 250 MG Tablet PO (21:38)
[2022-07-21] MEDS: ARIPiprazole 10 MG Tablet PO (21:38)
[2022-07-22] VITALS (9 sets, daily range): BP systolic 110–143; BP diastolic 79–96; PULSE 75–88; RESP 12–16; TEMP 36.5–36.7; O2SAT 93–97
[2022-07-22] MEDS: 0.9% Saline Lock 10 ML Syringe IV (02:43)
[2022-07-22] MEDS: LORazepam 1 MG Tablet PO (04:20)
[2022-07-22] MEDS: Acetaminophen 500 MG Tablet 1000 MG PO ×3 (05:38→21:15)
[2022-07-22 06:39] LABS: Absolute Lymphocyte Count 1.37 X10^3/uL (0.83-4.51); Absolute Neutrophil Count 2.4 X10^3/uL (2.0-7.7); Basophil# 0.03 X10^3/uL; Basophil% 0.7 % (0-1); Eosinophil# 0.15 X10^3/uL; Eosinophils% 3.4 % (0-5); Hematocrit 38.3 % (37-47); Lymphocyte # 1.37 X10^3/ul (0.83-4.51); Lymphocyte % 31.1 % (19-41); Mean Corp Hgb Conc 33.9 g/dL (32-36); Mean Corpuscular Hgb 31.9 pg (27.0-32.0); Mean Corpuscular Volume 93.9 fL (81-99); Mean Platelet Vol. 9.8 fl (6.2-12.0); Monocyte# 0.46 X10^3/uL; Monocyte% 10.5 % (0-10); NRBC Flagged by Analyzer 0 % (0-5); Neutrophil # 2.37 X10^3/uL (2.7-7.7); Neutrophil % 53.8 % (47-70); Platelet Count 209 K/mm3 (150-450); RBC Distribution Width CV 13.7 % (11.6-14.6); RBC Distribution Width SD 46.5 fl (35.1-43.9); Red Blood Count 4.08 M/mm3 (4.2-5.4); White Blood Count 4.4 K/mm3 (4.4-11.0)
[2022-07-22 07:17] LABS: ALB/GLOB Ratio 0.8 RATIO (0.9-2.4); AST(SGOT) 25 U/L (15-37); Alanine Aminotransfer ALT/SGPT 22 U/L (13-56); Albumin, Serum 3.1 g/dL (3.2-5.0); Alkaline Phosphatase 111 U/L (45-117); Anion Gap 8 (5-15); BUN 10 mg/dL (7-18); BUN/Creat Ratio 15.1 RATIO (10-20); Calcium,Total 8.8 mg/dL (8.5-10.1); Chloride 104 mmol/L (98-107); Creatinine, Serum 0.66 mg/dL (0.55-1.02); EST Glomerular Filtration Rate 95 mL/min (>60); Est Glom Filt Rate - Afr Amer 115 mL/min (>60); Glucose 90 mg/dL (74-106); Phosphorus 3.4 mg/dL (2.5-4.9); Potassium 3.2 mmol/L (3.5-5.1); Protein, Total 7.1 g/dL (6.4-8.2); Sodium Level 140 mmol/L (136-145); Thyroid Stim Hormone (TSH) 0.75 uIU/mL (0.358-3.74)
--- NOTE | 2022-07-22 09:00 | MRI_ITS ---
EXAM: MR HEAD WITHOUT INTRAVENOUS CONTRAST CLINICAL INDICATION: vertigo TECHNIQUE: Multiplanar and multisequence MR images of the brain were obtained without intravenous contrast. This report was created using [employer] report generation technology. COMPARISON: CT head and CTA head 07/21/2022.. FINDINGS: BRAIN AND EXTRA-AXIAL SPACES: Unremarkable. No intra- or extra-axial hemorrhage. No evidence of acute infarct. No intracranial mass or mass effect. There is preservation of the oh/white matter interface. Posterior fossa structures are unremarkable. Ventricles are appropriate for age. No hydrocephalus. Basal cisterns are patent. SELLA: Unremarkable. Normal sella turcica, pituitary gland, infundibular stalk, optic chiasm and hypothalamus. AUDITORY SYSTEM: Unremarkable. The internal auditory canals are patent. BONES/JOINTS: Unremarkable. No discrete lytic or blastic abnormalities. SINUSES: Unremarkable as visualized. Clear. MASTOID AIR CELLS: Unremarkable as visualized. Clear. ORBITS: Unremarkable as visualized. Both globes, extraocular muscles, optic nerves and retrobulbar fat appear unremarkable. VASCULATURE: Unremarkable as visualized. Normal flow voids in the major intracranial circulation. MRI/Brain without Contrast IMPRESSION: Negative MRI brain without intravenous contrast. Electronically Signed: Simon Smith MD at 9:57 EST ,
[2022-07-22] MEDS: Enoxaparin 40 MG/0.4 ML Syringe SC (10:14)
[2022-07-22] MEDS: busPIRone 5 MG Tablet 10 MG PO (10:14)
[2022-07-22] MEDS: Creon 24,000 unit DR Capsule 1 CAP PO ×3 (10:14→17:25)
[2022-07-22] MEDS: Potassium Chloride Oral Tablet 20 MEQ PO (10:14)
[2022-07-22] MEDS: Metoprolol(XL)Succ 50 MG Tablet PO ×2 (10:15→21:15)
[2022-07-22] MEDS: Ursodiol 250 MG Tablet PO ×2 (10:15→21:15)
--- NOTE | 2022-07-22 10:44 | CASEMGMT ---
Assessment- SW met with patient. Patient was alert and orientedX3 and willing to participate in assessment. SW also verified patient's address, phone number as well as her contact's phone number. Living situation- Patient lives alone in a 1 story apartment with 2 entry steps. PCP: Dr Mc Specialists: Dr Thompson for her Pancreas, Dr Ricardo for Psychiatry, and Dr Romero for Pain Management (She has not seen Dr Romero for awhile as it has not been necessary) Pharmacy: [facility] Pharm[facility] DME:?walker, shower bench, raised toilet seat, and blood pressure machine ADL's/IADL's: Patient drives and manages her own medications. Patient does have an aide that helps with bathing, cleaning, laundry, sometimes meals, and taking out trash. However, patient said her aide has been sick and she has not seen her for awhile. Past SNF/rehab: Patient has been to [facility] and [facility] in the past Past HH: She had home health briefly, but does not remember the agency LW: None POA:? None LNOK: Patient has two sons, Dallas and Cole. She mainly keeps in contact with them via text messages. Her son Dallas just moved back to [place]. He just graduated with his Masters Degree from [employer] in Political Science. Patient's mother lives in [place]. Patient also has siblings. However, she does not talk with her mother or siblings due to differences. Mental Health: Patient's mental health diagnoses are Anxiety and Bipolar. Patient also has an alcohol use disorder. Patient sees Psychiatry for her mental health. She does not have a counselor. She used to go to counseling at [facility], but has not gone for awhile since her therapist went on maternity leave. Patient has also been to alcohol rehab, [facility] for alcohol counseling, and AA meetings. Patient declines any resources. She is aware she needs to take control of her alcohol use and she also knows it exacerbates health and mental health issues. Other: Patient did tell SW she has balance issues. SW suggested she mention this to the Physical and Occupational Therapists when they come in to see her. SW did talk with patient about who she would want to make medical decisions for her should she not be able to. Patient said she would want her friend Meme Dietz. Meme is listed as patient's contact. SW told patient SW could assist her in completing a Healthcare Power of Microfilm Operator. VIJAY strongly encouraged this since patient has children, but wants her friend to make decisions. Patient said she needs to check with Meme to make sure she would be okay with this. Patient is active with [facility] and her senior case manager is Natalie Rodriguez. SW did call [facility] coverage line and patient is eligible for up to 30 hours a week of aide services. Patient currently only gets her aide 2 hours 3 times a week. As mentioned before patient has not seen or heard from her aide in several weeks. SW did let the coverage line know this information. Patient also gets 10 meals delivered every Friday from [employer], and she has a lifeline button through [employer]. Plan: Patient is hoping to go home with home health at discharge. VIJAY told her we will follow and see what is recommended. Sonia Fuentes REMELTER LYNN
[2022-07-22] MEDS: Ceftriaxone 1 GM/50 ML BAG IV (11:26)
--- NOTE | 2022-07-22 12:54 | PCM.PN.HOSP ---
Subjective Subjective Follow-up for vertigo, dizziness/lightheadedness. Objective Data Objective Data Vital Signs: Vital Signs Temp Pulse Resp BP Pulse Ox O2 Del Method 98.0 F 77 14 143/94 H 97 Room Air 07/22/22 10:15 07/22/22 10:15 07/22/22 10:15 07/22/22 10:15 07/22/22 10:15 07/22/22 10:15 Oxygen Delivery Method Room Air Weight: 168 lb 13.985 oz Body Mass Index (BMI) 30.9 Intake & Output: Intake and Output for Last 24 Hours 07/20/22 07/21/22 07/22/22 23:59 23:59 23:59 Intake Total 500 / 800 750 / 750 Balance 500 / 800 750 / 750 Lab / Micro Data Result Diagrams: 07/22/22 05:35 07/22/22 05:35 Labs: Laboratory Results - last 24 hr 07/21/22 13:57: WBC 6.9, RBC 4.41, Hgb 13.9, Hct 42.7, MCV 96.8, MCH 31.5, MCHC 32.6, RDW Std Deviation 48.7 H, RDW Coeff of Laxmi 13.7, Plt Count 233, MPV 9.6, Immature Gran % (Auto) 0.400, Neut % (Auto) 50.1, Lymph % (Auto) 38.3, [place] % (Auto) 9.6, Eos % (Auto) 1.2, Baso % (Auto) 0.4, Absolute Neuts (auto) 3.4, Absolute Lymphs (auto) 2.63, Nucleated RBC % 0 07/21/22 13:57: PT 13.2, INR 1.0, APTT 25.7 07/21/22 13:57: Sodium 135 L, Potassium 3.5, Chloride 101, Carbon Dioxide 22.0, Anion Gap 12, BUN 11, Creatinine 0.67, Estim Creat Clear Calc 67.97, Est GFR (MDRD) Af Amer 115, Est GFR (MDRD) Non-Af 95, BUN/Creatinine Ratio 16.5, Glucose 128 H, Calcium 9.1, Total Bilirubin 1.00, AST 27, ALT 23, Alkaline Phosphatase 135 H, Troponin I High Sens 7, Total Protein 7.8, Albumin 3.5, Globulin 4.3 H, Albumin/Globulin Ratio 0.8 L, Lipase 107 07/21/22 13:57: Ethyl Alcohol < 3.0 07/21/22 15:15: Urine Color Yellow, Urine Clarity Cloudy, Urine pH 7.0, Ur Specific [place] 1.010, Urine Protein 30 H, Urine Glucose (UA) Normal, Urine Ketones 15 H, Urine Occult Blood 25 H, Urine Nitrite Positive H, Urine Bilirubin Negative, Urine Urobilinogen Normal, Ur Leukocyte Esterase 500 H, Urine RBC 0-5 SEEN, Urine WBC 25-50 SEEN, Ur Squamous Epith Cells 0-5 SEEN, Urine Bacteria 4+, Urine Mucus RARE 07/22/22 05:35: WBC 4.4, RBC 4.08 L, Hgb 13.0, Hct 38.3, MCV 93.9, MCH 31.9, MCHC 33.9, RDW Std Deviation 46.5 H, RDW Coeff of Laxmi 13.7, Plt Count 209, MPV 9.8, Immature Gran % (Auto) 0.500, Neut % (Auto) 53.8, Lymph % (Auto) 31.1, [place] % (Auto) 10.5 H, Eos % (Auto) 3.4, Baso % (Auto) 0.7, Absolute Neuts (auto) 2.4, Absolute Lymphs (auto) 1.37, Nucleated RBC % 0 07/22/22 05:35: Sodium 140, Potassium 3.2 L, Chloride 104, Carbon Dioxide 28.0, Anion Gap 8, BUN 10, Creatinine 0.66, Estim Creat Clear Calc 69.00, Est GFR (MDRD) Af Amer 115, Est GFR (MDRD) Non-Af 95, BUN/Creatinine Ratio 15.1, Glucose 90, Calcium 8.8, Phosphorus 3.4, Total Bilirubin 0.80, AST 25, ALT 22, Alkaline Phosphatase 111, Total Protein 7.1, Albumin 3.1 L, Globulin 4.0, Albumin/Globulin Ratio 0.8 L, TSH 0.75 Radiography Diagnostic Testing: Radiology Impression Brain CT 07/21/22 13:52 IMPRESSION: No acute intracranial process identified. Chronic involutional and white matter changes. Electronically Signed: Janay Kelly MD at 14:33 EST Reading Location ID and State: [facility] / [place] Tel , Service support , Chest X-Ray 07/21/22 13:52 IMPRESSION: Mild bibasilar opacities likely atelectasis. Electronically Signed: Janay Kelly MD at 14:23 EST , Head/Neck CTA 07/21/22 15:32 IMPRESSION: 1. There is mild atherosclerotic plaque formation of the origin of the left internal carotid artery with less than 50% cross sectional diameter stenosis. ALL ABOVE CRITERIA BY NASCET. 2. There is calcified plaque formation of the right cavernous carotid artery, with a mild stenosis (less than 50%). ALL ABOVE CRITERIA BY NASCET. 3. There is calcified plaque formation of the left cavernous carotid artery, with a mild stenosis (less than 50%). ALL ABOVE CRITERIA BY NASCET. Electronically Signed: Ty Mckeon MD at 16:30 EST , Brain MRI 07/22/22 09:00 IMPRESSION: Negative MRI brain without intravenous contrast. Electronically Signed: Simon Smith MD at 9:57 EST , Assessment & Plan Assessment/Plan (1) UTI (urinary tract infection): (2) Vertigo: (3) Generalized weakness: (4) Alcohol abuse: PLAN: Plan Patient was brought by EMS for vertigo and generalized weakness. Patient had swimming sensation in his head along with nausea. As per the EMS, he told that he was doing physical therapy and he felt his legs were weak and out of his control. Does not appear to walk Acute on chronic vertigo probably benign causes: Patient had CT of the head which shows less than 50% left ICA and bilateral cavernous arteries suggestive of mild carotid stenosis. MRI brain is negative for acute abnormality. -Patient with no focal deficits.On orthostatic vitals, patient heart rate increased from 96-1 24 on a standing but no consistent change in BP. -PT/OT consultations -Case management consultation as patient may need placed prior to discharge home Concern for UTI: Patient does not have burning micturition but generally incontinence and is just tingling sensation. Urine culture is ordered. Continue IV ceftriaxone 1 g daily. UA is positive for pyuria and nitrite. Generalized weakness -PT/OT consultation Alcohol abuse -Patient has been drinking heavily since -Encourage ongoing cessation -No alcohol in the last 48 hours -No current sign withdrawal -Patient states that she is not had any withdrawal when she stopped drinking previously -CIWA with as needed Ativan -Monitor closely for any phenobarbital needs Osteoporosis -Continue outpatient injections -Restart vitamin D at discharge Chronic pancreatitis -Continue Creon -Encourage cessation of alcohol use -Continue ursodiol Hypertension -Continue home metoprolol Chronic pain -Hold home meloxicam M -Continue home-continue on all Bipolar 2 disorder -Follows outpatient with Dr. Johnston -Continue home Abilify -Continue home BuSpar DVT prophylaxis -Lovenox -SCDs CODE STATUS -Full code is verified prior to admission the emergency department Charges/Coding Visit Charges Inpatient E&M: 96025 Subs Hosp L2
--- NOTE | 2022-07-22 13:17 | CHAPLAIN ---
Type of Pastoral Visit _x__ Initial Visit ___ Follow-up Visit ___ On-call Visit ___ General Patient Visit ___ Spiritual Assessment ___ Family Conference ___ Bereavement ___ Rapid Response ___ Code Blue ___ Other (describe below) Pastoral Care Referral From _x__ Patient ___ Family ___ Nurse ___ Physician ___ Orthotics Prosthetics Assistant ___ Negotiator ___ Other (describe below) Sacrament/Intervention _x__ Active listening ___ Anointing ___ Anabaptist ___ Bereavement ___ Communion ___ Kayla exploration ___ _x__ Life review _x__ Prayer ___ Reconciliation ___ Sacrament of Sick _x__ Supportive presence ___ Wedding ___ Other (describe below) Pastoral Comments patient has been seen before in previous admissions; pt remember this spot sprayer and gives update on her life; pt is limited in activity and has had a home health aide; pt is waiting for more test results and seeks time to talk and have company; pt welcomes a prayer
[2022-07-22] MEDS: ARIPiprazole 10 MG Tablet PO (21:17)
[2022-07-23] VITALS (9 sets, daily range): BP systolic 129–153; BP diastolic 74–107; PULSE 75–94; RESP 15–18; TEMP 36.6–36.8; O2SAT 93–96
[2022-07-23] MEDS: Acetaminophen 500 MG Tablet 1000 MG PO ×2 (05:21→13:26)
[2022-07-23] MEDS: Metoprolol(XL)Succ 50 MG Tablet PO (08:47)
[2022-07-23] MEDS: busPIRone 5 MG Tablet 10 MG PO (08:47)
[2022-07-23] MEDS: Ursodiol 250 MG Tablet PO (08:47)
[2022-07-23] MEDS: Potassium Chloride Oral Tablet 20 MEQ PO (08:47)
[2022-07-23] MEDS: Creon 24,000 unit DR Capsule 1 CAP PO ×2 (08:47→13:26)
[2022-07-23] MEDS: Enoxaparin 40 MG/0.4 ML Syringe SC (08:47)
[2022-07-23] MEDS: Ceftriaxone 1 GM/50 ML BAG IV (08:48)
--- NOTE | 2022-07-23 11:11 | DCINST_ITS ---
Discharge Instructions Diet Discharge Diet: Low fat / Low cholesterol and 2000 mg Sodium Diet Activity Weight Bearing Status: Weight bearing as tolerated Dressing / Incision Call your doctor if you observe: Fever of 101 or Higher, Coldness, Increased Pain, Numbness or Tingling, Change in Color, Inability to urinate, Inability to have a bowel movement, Shortness of breath, Dizziness, Fainting spells, Swelling in the ankles, Chest pain, Prolonged hiccupping, Increased palpitations (irregular heartbeat), Calf discomfort and Uncontrolled pain Follow Up Care Test Results: Test results from this visit will be discussed in further detail at your follow- up appointment, if applicable. Discharge Plan Admission Admit Date/Time: 07/21/22 15:32 Primary Reason for Your Visit: vertigo Attending Provider: Srinath Jefferson Primary Care Provider: Edward Mc Consulting Providers: Melanie Wu Discharge Orders/Prescriptions Prescriptions: New ursodiol 250 mg Tablet 250 mg PO BID Qty: 60 0RF sulfamethoxazole-trimethoprim [Bactrim DS] 800-160 mg tablet 1 tab PO BID 3 Days Qty: 6 0RF meclizine [Motion Sickness Relief(mecliz)] 25 mg tablet,chewable 25 mg PO TID Qty: 30 0RF Continued acetaminophen [Tylenol Extra Strength] 500 mg tablet 1,000 mg PO Q6H PRN (Reason: pain) ketoconazole 2 % shampoo 1 applic topical 2XW Qty: 120 2RF (DME) Adjustable Underwear Misc See Rx Instructions .ROUTE .MEDSUPPLY Qty: 200 3RF Rx Instructions: As directed Zenpep 25,000-79,000- 105,000 unit capsule,delayed release(DR/EC) 1 cap PO TID Qty: 90 3RF Rx Instructions: administer with meals and/or snacks hydrocortisone 2.5 % cream 1 applic topical BID PRN (Reason: rash) Qty: 30 0RF ondansetron HCl 8 mg tablet 8 mg PO Q8H PRN (Reason: nausea and vomiting) Qty: 14 0RF (DME) blood pressure monitor Kit See Rx Instructions .MEDSUPPLY Qty: 1 0RF Rx Instructions: Check blood pressure daily for hypertension I10 metoprolol succinate 50 mg tablet extended release 24 hr 50 mg PO BID 90 Days Qty: 180 2RF aripiprazole 10 mg tablet 10 mg PO DAILY Qty: 30 2RF denosumab 60 mg/mL syringe 60 mg SC [id number] multivitamin Tablet 1 tab PO QAM cholecalciferol (vitamin D3) 125 mcg (5,000 unit) capsule 125 mcg PO DAILY clobetasol 0.05 % shampoo 1 applic topical WE buspirone 10 mg tablet 10 mg PO BID (DME) Lift Chair See Rx Instructions .Route .MEDSUPPLY Qty: 1 0RF Rx Instructions: As directed meloxicam 15 mg tablet 15 mg PO DAILY PRN (Reason: pain) Qty: 90 0RF tizanidine 4 mg capsule 4 mg PO QHS PRN (Reason: muscle spasticity) Qty: 30 0RF Referrals / Follow Up: Edward Mc MD [Primary Care Provider] -
--- NOTE | 2022-07-23 12:22 | DS.PCM_ITS ---
Providers Date of Admission: 07/21/22 Date of Discharge: 07/23/22 Primary Care Physician: Dr. Edward Mc MD Reason For Visit: VERTIGO/DEBILITY Diagnosis Discharge Diagnosis (1) UTI (urinary tract infection): Status: Acute Code(s): N39.0 - Urinary tract infection, site not specified (2) Vertigo: Status: Acute Code(s): R42 - Dizziness and giddiness (3) Generalized weakness: Status: Acute Code(s): R53.1 - Weakness (4) Alcohol abuse: Status: Acute Code(s): F10.10 - Alcohol abuse, uncomplicated Plan Patient was brought by EMS for vertigo and generalized weakness. Patient had swimming sensation in his head along with nausea. As per the EMS, he told that he was doing physical therapy and he felt his legs were weak and out of his control. Does not appear to walk Acute on chronic vertigo probably benign causes: Patient had CT of the head which shows less than 50% left ICA and bilateral cavernous arteries suggestive of mild carotid stenosis. MRI brain is negative for acute abnormality. -Patient with no focal deficits.On orthostatic vitals, patient heart rate increased from 96-1 24 on a standing but no consistent change in BP. -PT/OT consultations -Case management consultation as patient may need placed prior to discharge home 07/23: Dizziness and vertigo resolved. Patient is discharged with outpatient OT, ENT referral and Antivert for symptomatic relief. Concern for UTI: Patient does not have burning micturition but generally incontinence and is just tingling sensation. Urine culture is ordered. Continue IV ceftriaxone 1 g daily. UA is positive for pyuria and nitrite. 07/23: Patient had 3 days of IV ceftriaxone. Urine culture pending. Discharged on 3 more days of Bactrim DS 1 tablet twice daily. Generalized weakness -PT/OT consultation Alcohol abuse -Patient has been drinking heavily since -Encourage ongoing cessation -No alcohol in the last 48 hours -No current sign withdrawal -Patient states that she is not had any withdrawal when she stopped drinking previously -CIWA with as needed Ativan -Monitor closely for any phenobarbital needs Osteoporosis -Continue outpatient injections -Restart vitamin D at discharge Chronic pancreatitis -Continue Creon -Encourage cessation of alcohol use -Continue ursodiol prescription given for ursodiol Hypertension -Continue home metoprolol Chronic pain -Hold home meloxicam M -Continue home-continue on all Bipolar 2 disorder -Follows outpatient with Dr. Johnston -Continue home Abilify -Continue home BuSpar DVT prophylaxis -Lovenox -SCDs CODE STATUS Discharge medication reconciliation done. Discharge follow-up instructions completed. Discharge process discussed with the patient and all questions were answered to patient's satisfaction. Total time spent, exact 35 minutes on discharge meds reconciliation, examination, coordination of care with nurses and ancillary staff, review of imaging and blood test and discussion with the patient on follow-up instructions. Medications at Discharge Home Medications acetaminophen 500 mg tablet (Tylenol Extra Strength) 1,000 mg PO Q6H PRN pain 11/08/20 Lift Chair #1 ea 12/08/20 cholecalciferol (vitamin D3) 125 mcg (5,000 unit) capsule 125 mcg PO DAILY supplement 09/16/21 clobetasol 0.05 % shampoo 1 applic topical WE eczema 09/16/21 multivitamin 1 tab PO QAM supplement 09/16/21 diaper,brief,adult,disposable (Adjustable Underwear) #200 ea 11/20/21 denosumab 60 mg/mL subcutaneous syringe 60 mg subcut [id number] osteoporosis 0 12/06/21 ketoconazole 2 % shampoo 1 applic topical 2XW #120 mL 01/23/22 hydrocortisone 2.5 % topical cream 1 applic topical BID PRN rash #30 grams 03/26/22 ondansetron HCl 8 mg tablet 8 mg PO Q8H PRN nausea and vomiting #14 tabs 04/16/22 blood pressure monitor #1 ea 04/25/22 [id number] 25,000-79,000-105,000 unit capsule,delayed rel (Zenpep) 1 cap PO TID #90 caps 05/01/22 metoprolol succinate 50 mg tablet,extended release 24 hr 50 mg PO BID 3 months #180 tabs 05/23/22 aripiprazole 10 mg tablet 10 mg PO DAILY anxiety #30 tabs 06/20/22 meloxicam 15 mg tablet 15 mg PO DAILY PRN pain #90 tabs 06/24/22 tizanidine 4 mg capsule 4 mg PO QHS PRN muscle spasticity #30 caps 07/10/22 buspirone 10 mg tablet 10 mg PO BID Anxiety 01/08/23 meclizine 25 mg chewable tablet (Motion Sickness Relief (meclizine)) 25 mg PO TID #30 tabs 07/23/22 sulfamethoxazole 800 mg-trimethoprim 160 mg tablet (Bactrim DS) 1 tab PO BID 3 days #6 tabs 07/23/22 ursodiol 250 mg tablet 250 mg PO BID #60 tabs 07/23/22 Physical Exam Narrative Seen and examined in the presence of RN. General: Alert, Oriented x3, Cooperative HEENT: Atraumatic, PERRLA, EOMI, Normocephalic Oral: No Gingival or Mucosal Lesions/ Ulcerations Neck: Supple, No JVD, Negative Carotid Bruits Lungs: Air entry diminished in bilateral lung bases. No crepitation/rhonchi Cardiovascular: Regular rate, Regular Rhythm, Normal S1, Normal S2, No murmurs Abdomen: Bowel Sounds Present, Soft, Non Tender, Non-Distended : No renal angle tenderness. No suprapubic tenderness. Extremities: No edema, Capillary Refill Less than 3 Seconds Skin: No rashes, No breakdown Musculoskeletal: No Tenderness to Palpation of Joints or Extremities Neurological: Cranial nerves II-XII grossly intact, DTR 2+/4 and Symmetrical, Neuro grossly intact Psych/Mental Status: Normal Affect, Appropriate. General: Alert, Oriented x3, Cooperative HEENT: Atraumatic, PERRLA, EOMI, Normocephalic Oral: Oral mucosa moist. No Gingival or Mucosal Lesions/ Ulcerations Neck: Supple, No JVD, Negative Carotid Bruits Lungs: Air entry diminished in bilateral lung bases. No crepitation/rhonchi Cardiovascular: Regular rate, Regular Rhythm, Normal S1, Normal S2, No murmurs Abdomen: Bowel Sounds Present, Soft, Non Tender, Non-Distended : No renal angle tenderness. No suprapubic tenderness. Extremities: No edema, Capillary Refill Less than 3 Seconds Skin: No rashes, No breakdown Musculoskeletal: No Tenderness to Palpation of Joints or Extremities. Knee and hip joint arthritis. Chronic disequilibrium Neurological: Cranial nerves II-XII grossly intact, DTR 2+/4 and Symmetrical, Neuro grossly intact Psych/Mental Status: Flat affect. Weight / BMI Weight Weight: 168 lb 13.985 oz Body Mass Index (BMI) 30.9 ABG / Lab / Microbiology Data Result Diagrams: 07/22/22 05:35 07/22/22 05:35 D/C Instructions Discharge Diet: Low fat / Low cholesterol and 2000 mg Sodium Diet Weight Bearing Status: Weight bearing as tolerated Call your doctor if you observe: Fever of 101 or Higher, Coldness, Increased Pain, Numbness or Tingling, Change in Color, Inability to urinate, Inability to have a bowel movement, Shortness of breath, Dizziness, Fainting spells, Swelling in the ankles, Chest pain, Prolonged hiccupping, Increased palpitations (irregular heartbeat), Calf discomfort and Uncontrolled pain Meaningful Use Info Meaningful Use Diagnoses (Choose all that apply): None applicable Discharge Plan Admission Admit Date/Time: 07/21/22 15:32 Primary Reason for Your Visit: vertigo Attending Provider: Srinath Jefferson Primary Care Provider: Edward Mc Consulting Providers: Melanie Wu Discharge Orders/Prescriptions Prescriptions: New ursodiol 250 mg Tablet 250 mg PO BID Qty: 60 0RF sulfamethoxazole-trimethoprim [Bactrim DS] 800-160 mg tablet 1 tab PO BID 3 Days Qty: 6 0RF meclizine [Motion Sickness Relief(mecliz)] 25 mg tablet,chewable 25 mg PO TID Qty: 30 0RF Continued acetaminophen [Tylenol Extra Strength] 500 mg tablet 1,000 mg PO Q6H PRN (Reason: pain) ketoconazole 2 % shampoo 1 applic topical 2XW Qty: 120 2RF (DME) Adjustable Underwear Misc See Rx Instructions .ROUTE .MEDSUPPLY Qty: 200 3RF Rx Instructions: As directed Zenpep 25,000-79,000- 105,000 unit capsule,delayed release(DR/EC) 1 cap PO TID Qty: 90 3RF Rx Instructions: administer with meals and/or snacks hydrocortisone 2.5 % cream 1 applic topical BID PRN (Reason: rash) Qty: 30 0RF ondansetron HCl 8 mg tablet 8 mg PO Q8H PRN (Reason: nausea and vomiting) Qty: 14 0RF (DME) blood pressure monitor Kit See Rx Instructions .MEDSUPPLY Qty: 1 0RF Rx Instructions: Check blood pressure daily for hypertension I10 metoprolol succinate 50 mg tablet extended release 24 hr 50 mg PO BID 90 Days Qty: 180 2RF aripiprazole 10 mg tablet 10 mg PO DAILY Qty: 30 2RF denosumab 60 mg/mL syringe 60 mg SC [id number] multivitamin Tablet 1 tab PO QAM cholecalciferol (vitamin D3) 125 mcg (5,000 unit) capsule 125 mcg PO DAILY clobetasol 0.05 % shampoo 1 applic topical WE buspirone 10 mg tablet 10 mg PO BID (DME) Lift Chair See Rx Instructions .Route .MEDSUPPLY Qty: 1 0RF Rx Instructions: As directed meloxicam 15 mg tablet 15 mg PO DAILY PRN (Reason: pain) Qty: 90 0RF tizanidine 4 mg capsule 4 mg PO QHS PRN (Reason: muscle spasticity) Qty: 30 0RF Referrals / Follow Up: Edward Mc MD [Primary Care Provider] - Charges/Coding Visit Charges Inpatient E&M: 78761 Disch Hosp >30min
--- NOTE | 2022-07-23 13:02 | CASEMGMT ---
Patient is up for discharge. SW met with patient and asked if she decided if she would like home health. Patient does want home health. SW?provided patient with a list of Home Healthcare providers including quality and resource use data and consistent with patient?s preferred geographic region, medical needs, and insurance network were provided from the [employer] Guide. SW asked patient to pick at least 3 options. Sonia BAILEY
--- NOTE | 2022-07-23 13:14 | CASEMGMT ---
SW checked back with patient and she picked 3 agencies. Her choices in no particular order are: [facility], [facility], and [facility]. VIJAY told patient SW will work on referrals and let her know. VIJAY sent referrals to all 3 agencies via [employer]. Await responses. Sonia Fuentes EVALUATION ENGINEEREdna BAILEY
--- NOTE | 2022-07-23 13:46 | CASEMGMT ---
VIJAY called [facility] in [place] and they do not have PT/OT. VIJAY called [facility] and spoke with Marleni. She will have the team look at the referral. VIJAY called [facility] and they do not come to [place]. Sonia Fuentes MSW LYNN
--- NOTE | 2022-07-23 13:54 | CASEMGMT ---
VIJAY called [facility] and spoke with Miguel Amaya on the coverage line. VIJAY let him know patient is being discharged home today with home health. VIJAY also faxed d/c summary and instructions to Natalie Rodriguez at [facility]. Sonia BAILEY
--- NOTE | 2022-07-23 14:45 | CASEMGMT ---
VIJAY called Simon with [facility] and asked about referral. Simon looked and it is still being reviewed. Simon will have her milieu coordinator call VIJAY once she has reviewed it. VIJAY met with patient and let her know the 2 agencies that are not able to take her. SW let her know SW is still waiting on CHN. Patient said she is okay with any agency that is able to accept her. VIJAY then sent a referral to [facility] via [facility]. Sonia BAILEY
--- NOTE | 2022-07-23 15:08 | CASEMGMT ---
VIJAY spoke with [facility] and they are reviewing patient's referral now. Sonia Fuentes EQUIPMENT DETAILER LYNN
--- NOTE | 2022-07-23 15:29 | CASEMGMT ---
SW has not heard back from the home health agencies yet. VIJAY spoke with patient and she would like to go home soon. Patient is okay leaving the hospital before SW gets her home health set up. VIJAY told patient SW will call her when SW has home health set up. VIJAY notified soaking pits supervisor. plan: d/c home with home health alf, PT, and OT. Sonia Fuentes HOUSEKEEPING AIDE LYNN
--- NOTE | 2022-07-23 15:48 | CASEMGMT ---
Addendum entered by Sonia Fuentes 07/23/22 16:05: SW notified patient and she was in agreement with this plan. SW let her know they will call her and set up an appt. They plan on seeing her at the end of the week. Sonia BAILEY Original Note: SW received a call from Simon with [facility]. They can accept patient and will see her at the end of the week. SW will notify patient. Plan: d/c home with [facility] long-term, PT, and OT. Sonia BAILEY
== END 2022-07-23 16:10 | disposition home health service (06) | DRG 111 ==
LOC: ED 13:47 → PCU 15:54
PROVIDERS: Admitting Provider Internal Medicine; Emergency Provider Emergency Medicine; PCP Internal Medicine; Visit Provider Internal Medicine
DX: R42 Dizziness and giddiness (principal); K86.0 Alcohol-induced chronic pancreatitis; F31.81 Bipolar II disorder; F10.10 Alcohol abuse, uncomplicated; I10 Essential (primary) hypertension; N39.0 Urinary tract infection, site not specified; R32 Unspecified urinary incontinence; R53.1 Weakness; M81.0 Age-related osteoporosis without current pathological fracture; Z79.899 Other long term (current) drug therapy; Z87.891 Personal history of nicotine dependence; G89.29 Other chronic pain
CPT/HCPCS: 36415; 70450; 70496; 70498; 70551; 71045; 80053; 81001; 82077; 83690; 84100; 84443; 84484; 85025; 85610; 85730; 87086; 87088; 87186; 93005; 97110; 97162; 97166; 97530; 97535; 99252; 99285; J7040; Q9967; A4216; G0463; J2405

== ENCOUNTER → 2022-07-26 | Outpatient (CLI) | payer MEDICAID, SELFPAY ==
[2022-07-26 12:45] LABS: Vitamin B12 464 pg/mL (211-911)
[2022-07-26 12:49] LABS: Hemoglobin A1c 4.7 % (3.8-5.6)
[2022-07-26 12:49] LABS: Anion Gap 8 (5-15); BUN 13 mg/dL (7-18); BUN/Creat Ratio 17.4 RATIO (10-20); Calcium,Total 9.4 mg/dL (8.5-10.1); Chloride 109 mmol/L (98-107); Creatinine, Serum 0.75 mg/dL (0.55-1.02); EST Glomerular Filtration Rate 83 mL/min (>60); Est Glom Filt Rate - Afr Amer 100 mL/min (>60); Glucose 103 mg/dL (74-106); Magnesium 1.9 mg/dL (1.6-2.6); Sodium Level 139 mmol/L (136-145)
[2022-07-26 12:51] LABS: Cholesterol 206 mg/dL (200)
== END | disposition home or self-care (01) ==
LOC: BIMLAB 08:35
PROVIDERS: Student in an Organized Health Care Education/Training Program; PCP Internal Medicine; Referring Provider Internal Medicine; Visit Provider Internal Medicine
DX: R42 Dizziness and giddiness (principal); F31.81 Bipolar II disorder; I10 Essential (primary) hypertension; F10.10 Alcohol abuse, uncomplicated
CPT/HCPCS: 36415; 80048; 82465; 82607; 83036; 83735

== ENCOUNTER → 2022-09-10 | Outpatient (CLI) | payer MEDICAID, SELFPAY ==
--- NOTE | 2022-09-10 07:53 | MRI_ITS ---
EXAM: MR ABDOMEN WITHOUT AND WITH INTRAVENOUS CONTRAST CLINICAL INDICATION: pancreatic pseudocyst TECHNIQUE: Multiplanar and multisequence MR images of the abdomen without and with intravenous contrast. This report was created using [employer] report generation technology. CONTRAST: IV 15ml Clariscan COMPARISON: CT abdomen and pelvis 09/16/2021, MR Abdomen dated 01/31/2022 FINDINGS: LOWER THORAX: Normal. No pleural effusion. LIVER: The signal loss within the liver parenchyma on the out of phase image related to steatosis. GALLBLADDER AND BILE DUCTS: Interval cholecystectomy. No intra- or extrahepatic biliary ductal dilation. PANCREAS: Stable 19 mm cyst within the tail of the pancreas. Pancreatic duct. SPLEEN: Normal. Normal size without focal cystic or solid mass. ADRENALS: Normal. No nodules. KIDNEYS AND URETERS: Focal scarring within the upper pole of the left kidney again noted subcentimeter left renal cyst. No hydronephrosis. INTRAPERITONEAL SPACE: Normal. No ascites or other fluid collection. No free air. VASCULATURE: Normal. Abdominal aorta is non-dilated. LYMPH NODES: No enlarged lymph nodes. MRI/MRI Abd WITH and W/O Contrast IMPRESSION: 1. Interval cholecystectomy. 2. Normal biliary tree and pancreatic duct. 3. Hepatic steatosis. 4. Stable 19 mm cystic lesion within the tail of the pancreas. Electronically Signed: Qamar Kazt MD at 10:18 EST ,
[2022-09-10 08:35] LABS: CREATININE FINGERSTICK < 0.9 mg/dL (0.55-1.02); EGFR FINGERSTICK > 60.0000 mL/min (>60)
== END | disposition home or self-care (01) ==
PROVIDERS: PCP Internal Medicine; Referring Provider Internal Medicine Gastroenterology; Visit Provider Internal Medicine Gastroenterology
DX: K86.3 Pseudocyst of pancreas (principal)
CPT/HCPCS: 74183; A9575; A4216

== ENCOUNTER → 2022-09-18 | Outpatient (CLI) | payer MEDICAID, SELFPAY ==
[2022-09-18 10:14] LABS: Vitamin B12 1305 pg/mL (211-911)
[2022-09-18 11:04] LABS: Magnesium 2.4 mg/dL (1.6-2.6); Phosphorus 3.3 mg/dL (2.5-4.9)
[2022-09-21 12:35] LABS: Vitamin B1, Thiamine 216.8 nmol/L (66.5-200.0)
== END | disposition home or self-care (01) ==
PROVIDERS: PCP Internal Medicine; Referring Provider Internal Medicine Gastroenterology; Visit Provider Internal Medicine Gastroenterology
DX: F10.10 Alcohol abuse, uncomplicated (principal)
CPT/HCPCS: 36415; 82607; 82746; 83735; 84100; 84425

== ENCOUNTER 2022-10-07 08:26 | Inpatient (IN) | payer MEDICAID, SELFPAY ==
[2022-10-07] VITALS (9 sets, daily range): BP systolic 99–141; BP diastolic 67–92; PULSE 83–97; RESP 12–18; TEMP 36–37.2; O2SAT 96–99; BMI 28.5; BMI 28.3
--- NOTE | 2022-10-07 08:36 | EX.ED.DYSGE1 ---
HPI History of Present Illness Chief Complaint: Nausea/Vomiting Informant: patient Onset/Context/Timing Onset: Days (2 days) Narrative Narrative: Patient presents to the ER due to concern for pancreatitis. She reports epigastric abdominal pain with nausea and vomiting for the past 2 days. She does have a history of alcohol abuse and states her last drink was 3 days ago. She denies history of alcohol withdrawal seizure. She denies diarrhea. She has not had any blood associated with her vomitus. [facility] Medical History Alcohol use Alcohol use disorder, moderate, dependence Alcoholic pancreatitis Anxiety Bipolar II disorder Bowel incontinence Compression fracture Debility Depression Difficulty swallowing Elevated blood pressure reading Hypertension Injury of head and neck Leg cramps Marijuana use Neck pain Non-smoker Osteoporosis Pain at injection site Scalp psoriasis Scoliosis Seborrheic dermatitis Shortness of breath on exertion Urinary incontinence Urinary urgency Walker as ambulation aid Wears contact lenses Home Medications acetaminophen 500 mg tablet (Tylenol Extra Strength) 1,000 mg PO Q6H PRN pain 11/08/20 [History Last Taken 1 Week Ago ~07/14/22] Lift Chair #1 ea 12/08/20 [Rx Last Taken Unknown] clobetasol 0.05 % shampoo 1 applic topical WE eczema 09/16/21 [History Last Taken 07/19/22] diaper,brief,adult,disposable (Adjustable Underwear) #200 ea 11/20/21 [Rx Last Taken Unknown] ketoconazole 2 % shampoo 1 applic topical 2XW #120 mL 01/23/22 [Rx Last Taken 07/18/22] hydrocortisone 2.5 % topical cream 1 applic topical BID PRN rash #30 grams 03/26/22 [Rx Last Taken 1 Week Ago ~07/14/22] ondansetron HCl 8 mg tablet 8 mg PO Q8H PRN nausea and vomiting #14 tabs 04/16/22 [Rx Last Taken 2 Months Ago ~05/21/22] blood pressure monitor #1 ea 04/25/22 [Rx Last Taken Unknown] kemreq-lvjbrthu-jasurgs 25,000-79,000-105,000 unit capsule,delayed rel (Zenpep) 1 cap PO TID #90 caps 05/01/22 [Rx Last Taken 07/21/22] metoprolol succinate 50 mg tablet,extended release 24 hr 50 mg PO BID 3 months #180 tabs 05/23/22 [Rx Last Taken 07/21/22] meloxicam 15 mg tablet 15 mg PO DAILY PRN pain #90 tabs 06/24/22 [Rx Last Taken 07/21/22] meclizine 25 mg chewable tablet (Motion Sickness Relief (meclizine)) 25 mg PO TID #30 tabs 07/23/22 [Rx Last Taken Unknown] ursodiol 250 mg tablet 250 mg PO BID #60 tabs 07/23/22 [Rx Last Taken Unknown] calcium carbonate 600 mg calcium (1,500 mg) tablet (Calcium) 600 mg PO DAILY #1 TAB 07/29/22 [Rx Last Taken Unknown] denosumab 60 mg/mL subcutaneous syringe 60 mg subcut [id number] osteoporosis 08/01/22 [History Last Taken Unknown] cholecalciferol (vitamin D3) 125 mcg (5,000 unit) capsule 125 mcg PO DAILY supplement #30 caps 08/19/22 [Rx Last Taken Unknown] multivitamin 1 tab PO QAM supplement #90 tabs 08/19/22 [Rx Last Taken Unknown] cane #1 ea 08/28/22 [Rx Last Taken Unknown] aripiprazole 10 mg tablet 10 mg PO DAILY anxiety #30 tabs 09/17/22 [Rx Last Taken Unknown] buspirone 10 mg tablet 10 mg PO BID Anxiety #60 tabs 09/17/22 [Rx Last Taken Unknown] tizanidine 4 mg capsule 4 mg PO BID PRN muscle spasticity #60 caps 09/17/22 [Rx Last Taken Unknown] Allergy/AdvReac Type Severity Reaction Status Date / Time No Known Allergies Allergy Verified 10/07/22 08:28 Family History Other Heart disease Osteoporosis Surgical History History of back surgery History of esophagogastroduodenoscopy (EGD) History of tubal ligation History of wisdom tooth extraction Hx of kyphoplasty Hx of total hip arthroplasty S/P kyphoplasty Social History household members: none current occupational status: disabled Smoking Status: Former smoker alcohol intake: current alcohol intake frequency: 3 or more drinks per day substance use type: does not use what type of physical activity do you participate in: none seatbelt use: always do you feel safe at home: Yes additional social history: single ROS ROS ED Constitutional Constitutional ED: Denies chills or fever(s) Eyes Eyes: Denies change in vision or discharge from eye(s) ENT ENT ED: Denies discharge from eye(s), rhinorrhea or sore throat Cardiovascular Cardiovascular: Denies chest pain or palpitations Respiratory/Chest Respiratory/Chest: Denies cough or dyspnea Gastrointestinal Gastrointestinal: Reports abdominal pain, nausea and vomiting; Denies diarrhea Genitourinary Genitourinary ED: Denies dysuria Musculoskeletal Musculoskeletal: Denies back pain or extremity pain Integumentary Denies Abrasions or rash Neurologic Neurologic: Denies headache(s) or weakness Psychiatric Psychiatric: Denies anxiety or depression Allergic/Immunologic Allergic/Immunologic ED: Denies lip swelling or urticaria EXAM Physical Exam Const Vital Signs: 10/07/22 08:26 10/07/22 08:43 Temperature 97.5 F L Temperature Source Temporal Pulse Rate 95 90 Respiratory Rate 14 15 Blood Pressure 125/86 H 141/92 H Blood Pressure Mean 99 108 Pulse Ox 98 97 Oxygen Delivery Method Room Air Room Air Positive well nourished and well developed General Appearance ED: well developed HEENT Reports normocephalic and head/scalp atraumatic Eyes PERRL and EOMs intact bilaterally Neck supple Chest Wall inspection of chest normal and palpation of chest normal Resp normal respiratory effort and clear to auscultation bilaterally Cardio regular rate and regular rhythm GI GI Narrative: Abdomen is soft with epigastric abdominal tenderness. No guarding or rebound. Auscultation: hypoactive bowel sounds Palpation: soft Extremity normal to inspection Neuro oriented x3 and no sensory deficits noted Sensorium / Orientation: alert Motor Exam: strength 5/5 throughout Psych Psych Narrative: Flat affect. Skin no rashes or lesions noted MDM MDM MDM Narrative Medical decision making narrative: Given morphine and Zofran for pain and nausea. Labwork obtained to evaluate for leukocytosis, anemia, and electrolyte derangement. Lab Data Attestation: I reviewed the patient's lab results. Labs: Laboratory Results - last 24 hr 10/07/22 10/07/22 08:55 08:55 WBC 7.4 RBC 4.92 Hgb 15.8 H Hct 47.1 H MCV 95.7 MCH 32.1 H MCHC 33.5 RDW Std Deviation 53.1 H RDW Coeff of Laxmi 15.1 H Plt Count 165 MPV 9.9 Immature Gran % (Auto) 0.500 Neut % (Auto) 76.1 H Lymph % (Auto) 11.8 L [place] % (Auto) 11.2 H Eos % (Auto) 0.1 Baso % (Auto) 0.3 Absolute Neuts (auto) 5.6 Absolute Lymphs (auto) 0.87 Nucleated RBC % 0 Sodium 133 L Potassium 4.5 Chloride 106 Carbon Dioxide 11.0 L Anion Gap 16 H BUN 22 H Creatinine 1.10 H Estim Creat Clear Calc 45.20 Est GFR (MDRD) Af Amer 64 Est GFR (MDRD) Non-Af 53 L BUN/Creatinine Ratio 20.0 Glucose 155 H Calcium 8.5 Total Bilirubin 0.90 Direct Bilirubin 0.28 AST 43 H ALT 42 Alkaline Phosphatase 127 H Total Protein 8.7 H Albumin 3.8 Globulin 4.9 H Lipase 2016 H Radiography Diagnostic Testing: Clinical Impression(s) from Imaging Studies Gallbladder Ultrasound 10/07/22 10:09 IMPRESSION: Hepatomegaly and fatty infiltration of the liver. Sludge and a solitary gallstone is seen within the gallbladder lumen. Electronically Signed: Pedro Timmons MD at 12:58 EDT , Treatment and Re-Evaluation :: CBC was normal white count. Hemoglobin is concentrated at 15.8. Chemistry studies largely unremarkable. Anion gap is slightly up at 16, BUN is 22, creatinine 1.10. Glucose is 155. LFTs significant for an alk phos of 127 and AST of 43. Lipase is 2016. I did review the patient's recent MRI of the abdomen. On that study they state that patient has had an interval cholecystectomy. When I asked the patient about that she denies having her gallbladder removed. She does state that she has a known gallstone. In light of this a right upper quadrant ultrasound is performed. Sludge and a solitary gallstone is seen. No significant wall thickening or pericholecystic fluid. Patient will be discussed with hospitalist regarding admission. She is required multiple doses of morphine here for pain control along with a GI cocktail. Discharge Plan Triage Chief Complaint: Nausea/Vomiting ED Provider: Margarita Colindres Dx/Rx/DC Orders Clinical Impression: Pancreatitis Prescriptions: No Action acetaminophen [Tylenol Extra Strength] 500 mg tablet 1,000 mg PO Q6H PRN (Reason: pain) ketoconazole 2 % shampoo 1 applic topical 2XW Qty: 120 2RF (DME) Adjustable Underwear Misc See Rx Instructions .ROUTE .MEDSUPPLY Qty: 200 3RF Rx Instructions: As directed Zenpep 25,000-79,000- 105,000 unit capsule,delayed release(DR/EC) 1 cap PO TID Qty: 90 3RF Rx Instructions: administer with meals and/or snacks hydrocortisone 2.5 % cream 1 applic topical BID PRN (Reason: rash) Qty: 30 0RF ondansetron HCl 8 mg tablet 8 mg PO Q8H PRN (Reason: nausea and vomiting) Qty: 14 0RF (DME) blood pressure monitor Kit See Rx Instructions .MEDSUPPLY Qty: 1 0RF Rx Instructions: Check blood pressure daily for hypertension I10 metoprolol succinate 50 mg tablet extended release 24 hr 50 mg PO BID 90 Days Qty: 180 2RF aripiprazole 10 mg tablet 10 mg PO DAILY Qty: 30 2RF buspirone 10 mg tablet 10 mg PO BID Qty: 60 2RF (DME) cane Device See Rx Instructions .Route Qty: 1 3RF Rx Instructions: As directed clobetasol 0.05 % shampoo 1 applic topical WE ursodiol 250 mg Tablet 250 mg PO BID Qty: 60 0RF meclizine [Motion Sickness Relief(mecliz)] 25 mg tablet,chewable 25 mg PO TID Qty: 30 0RF (DME) Lift Chair See Rx Instructions .Route .MEDSUPPLY Qty: 1 0RF Rx Instructions: As directed meloxicam 15 mg tablet 15 mg PO DAILY PRN (Reason: pain) Qty: 90 0RF calcium carbonate [Calcium 600] 600 mg calcium (1,500 mg) tablet 600 mg PO DAILY Qty: 1 0RF denosumab 60 mg/mL syringe 60 mg subcut [id number] cholecalciferol (vitamin D3) 125 mcg (5,000 unit) capsule 125 mcg PO DAILY Qty: 30 2RF multivitamin Tablet 1 tab PO QAM Qty: 90 3RF tizanidine 4 mg capsule 4 mg PO BID PRN (Reason: muscle spasticity) Qty: 60 0RF Primary Care Provider: Edward Mc Referrals: Edward Mc MD [Primary Care Provider] - Disposition Disposition: Acute Care Hospital [facility]
[2022-10-07] MEDS: Morphine 4 MG/ML Syringe IV ×3 (08:57→12:18)
[2022-10-07] MEDS: 0.9% Normal Saline 1,000 ML 1000 ML IV (08:57)
[2022-10-07] MEDS: Ondansetron 4 MG/2 ML Vial IV (08:57)
[2022-10-07 09:02] LABS: Absolute Lymphocyte Count 0.87 X10^3/uL (0.83-4.51); Absolute Neutrophil Count 5.6 X10^3/uL (2.0-7.7); Basophil# 0.02 X10^3/uL; Basophil% 0.3 % (0-1); Eosinophil# 0.01 X10^3/uL; Eosinophils% 0.1 % (0-5); Hematocrit 47.1 % (37-47); Hemoglobin 15.8 g/dL (12.0-15.0); Lymphocyte # 0.87 X10^3/ul (0.83-4.51); Lymphocyte % 11.8 % (19-41); Mean Corp Hgb Conc 33.5 g/dL (32-36); Mean Corpuscular Hgb 32.1 pg (27.0-32.0); Mean Corpuscular Volume 95.7 fL (81-99); Mean Platelet Vol. 9.9 fl (6.2-12.0); Monocyte# 0.83 X10^3/uL; Monocyte% 11.2 % (0-10); NRBC Flagged by Analyzer 0 % (0-5); Neutrophil # 5.61 X10^3/uL (2.7-7.7); Neutrophil % 76.1 % (47-70); Platelet Count 165 K/mm3 (150-450); RBC Distribution Width CV 15.1 % (11.6-14.6); RBC Distribution Width SD 53.1 fl (35.1-43.9); Red Blood Count 4.92 M/mm3 (4.2-5.4); White Blood Count 7.4 K/mm3 (4.4-11.0)
[2022-10-07 09:29] LABS: AST(SGOT) 43 U/L (15-37); Alanine Aminotransfer ALT/SGPT 42 U/L (13-56); Albumin, Serum 3.8 g/dL (3.2-5.0); Alkaline Phosphatase 127 U/L (45-117); Anion Gap 16 (5-15); BUN 22 mg/dL (7-18); Bilirubin, Direct 0.28 mg/dL (0.00-0.30); Calcium,Total 8.5 mg/dL (8.5-10.1); Chloride 106 mmol/L (98-107); EST Glomerular Filtration Rate 53 mL/min (>60); Est Glom Filt Rate - Afr Amer 64 mL/min (>60); Globulin 4.9 g/dL (2.2-4.2); Glucose 155 mg/dL (74-106); Lipase 2016 U/L (73-393); Potassium 4.5 mmol/L (3.5-5.1); Protein, Total 8.7 g/dL (6.4-8.2); Sodium Level 133 mmol/L (136-145)
[2022-10-07] MEDS: 0.9% Normal Saline 1,000 ML 150 ML IV ×3 (10:01→23:59)
--- NOTE | 2022-10-07 10:09 | US_ITS ---
STUDY: ABDOMINAL ULTRASOUND - RIGHT UPPER QUADRANT REASON FOR VISIT: Female, 62 years old pancreatitis TECHNIQUE: Ultrasound evaluation of the right upper quadrant was performed with real-time and static oh-scale imaging. TECHNICAL QUALITY: Limited. Examination limited by bowel gas. COMPARISON: Comparison is made with prior MRI of the abdomen dated September 10, 2022. FINDINGS: Liver: The liver is enlarged and measures 19.1 cm. There is increased echogenicity consistent with fatty infiltration. The bile ducts are within normal limits. There is hepatic color flow. The direction of portal flow is hepatopetal. There is no demonstrated mass lesion. Gallbladder: Normal distended gallbladder. The gallbladder wall measures 1.7 mm. There is a negative sonographic Rosenberg''s sign. There is no pericholecystic fluid. There is a solitary echogenic gallstone within the gallbladder. The gallstone measures 1 cm. Sludge is seen within the gallbladder lumen. Common Bile Duct (C.B.D.): The common bile duct is slightly dilated and measures 8.1 mm. Pancreas: Normal size of the head, body of the pancreas. The tail portion is obscured due to overlying bowel gas. There is normal echogenicity of the pancreas. There is no demonstrated pancreatic mass or cyst. Right Kidney: Normal size of the right kidney. The right kidney measures 10.5 cm x 5.5 cm x 5.9 cm. Normal renal cortex. The right cortex measures 1.4 cm. There is no demonstrated renal mass or cyst. There is no right hydronephrosis. US/Gallbladder IMPRESSION: Hepatomegaly and fatty infiltration of the liver. Sludge and a solitary gallstone is seen within the gallbladder lumen. Electronically Signed: Pedro Timmons MD at 12:58 EDT ,
[2022-10-07] MEDS: Mag Hydrox/Al Hydrox/Simeth 30 ML UDC PO (12:38)
--- NOTE | 2022-10-07 15:02 | NURSING ---
MED SURG TERELETSKY PANCREATITIS
[2022-10-07] MEDS: HYDROmorphone 0.5 MG/0.5 ML SYRINGE IV (18:15)
--- NOTE | 2022-10-07 18:26 | HP.PCM.HOS_ITS ---
HPI - General General Date of Admission: 10/07/22 Date of Service: 10/07/22 Chief Complaint: Abdominal pain HPI Narrative PRASHANT MAZARIEGOS, is a 62 F who presents to the emergency room at [facility] with chief complaint of mid abdominal pain x2 days. Patient has had a history of pancreatitis in the past from alcohol use, she states she quit drinking about 3 days ago. Patient states that she drinks 2 mixed drinks a day with half a glass dilutions of Gatorade and diluted vodka. Patient follows up with Dr. Thompson from gastroenterology. Work-up in the emergency room included an ultrasound of the gallbladder which showed gallbladder sludge and a solitary gallstone with the common bile duct being slightly dilated at 8.1 mm, patient's lipase was elevated, patient's white count was normal, creatinine was elevated at 1.1 and BUN was 22. Patient will be admitted to [place] [id number], she will be given IV fluids and IV pain medications, she will be placed on a clear liquid diet, I will discuss the case with gastroenterology-I really do not feel that they need to see the patient in consultation at this time. [facility] Medical History Alcohol use Alcohol use disorder, moderate, dependence Alcoholic pancreatitis Anxiety Bipolar II disorder Bowel incontinence Compression fracture Debility Depression Difficulty swallowing Elevated blood pressure reading Hypertension Injury of head and neck Leg cramps Marijuana use Neck pain Non-smoker Osteoporosis Pain at injection site Scalp psoriasis Scoliosis Seborrheic dermatitis Shortness of breath on exertion Urinary incontinence Urinary urgency Walker as ambulation aid Wears contact lenses Home Medications acetaminophen 500 mg tablet (Tylenol Extra Strength) 1,000 mg PO Q6H PRN pain 11/08/20 [History Last Taken 10/06/22 20:50] Lift Chair #1 ea 12/08/20 [Rx Last Taken Unknown] clobetasol 0.05 % shampoo 1 applic topical WE eczema 09/16/21 [History Last Taken 07/19/22] diaper,brief,adult,disposable (Adjustable Underwear) #200 ea 11/20/21 [Rx Last Taken Unknown] ketoconazole 2 % shampoo 1 applic topical 2XW #120 mL 01/23/22 [Rx Last Taken 07/18/22] ondansetron HCl 8 mg tablet 8 mg PO Q8H PRN nausea and vomiting #14 tabs 04/16/22 [Rx Last Taken 2 Months Ago ~05/21/22] blood pressure monitor #1 ea 04/25/22 [Rx Last Taken Unknown] hefpvu-pwvdgzth-zjhocnm 25,000-79,000-105,000 unit capsule,delayed rel (Zenpep) 1 cap PO TID #90 caps 05/01/22 [Rx Last Taken 1 Week Ago ~09/30/22] metoprolol succinate 50 mg tablet,extended release 24 hr 50 mg PO BID 3 months #180 tabs 05/23/22 [Rx Last Taken 10/06/22 22:00] meloxicam 15 mg tablet 15 mg PO DAILY PRN pain #90 tabs 06/24/22 [Rx Last Taken 10/06/22 10:00] ursodiol 250 mg tablet 250 mg PO BID #60 tabs 07/23/22 [Rx Last Taken 1 Month Ago ~09/09/22] denosumab 60 mg/mL subcutaneous syringe 60 mg subcut [id number] osteoporosis 08/01/22 [History Last Taken Unknown] cholecalciferol (vitamin D3) 125 mcg (5,000 unit) capsule 125 mcg PO DAILY supplement #30 caps 08/19/22 [Rx Last Taken 10/06/22] multivitamin 1 tab PO QAM supplement #90 tabs 08/19/22 [Rx Last Taken 10/06/22] cane #1 ea 08/28/22 [Rx Last Taken Unknown] aripiprazole 10 mg tablet 10 mg PO DAILY anxiety #30 tabs 09/17/22 [Rx Last Taken 10/06/22] buspirone 10 mg tablet 10 mg PO BID Anxiety #60 tabs 09/17/22 [Rx Last Taken 10/06/22 22:00] tizanidine 4 mg capsule 4 mg PO BID PRN muscle spasticity #60 caps 09/17/22 [Rx Last Taken Unknown] Allergy/AdvReac Type Severity Reaction Status Date / Time No Known Allergies Allergy Verified 10/07/22 08:28 Family History Other Heart disease Osteoporosis Surgical History History of back surgery History of esophagogastroduodenoscopy (EGD) History of tubal ligation History of wisdom tooth extraction Hx of kyphoplasty Hx of total hip arthroplasty S/P kyphoplasty Social History household members: none current occupational status: disabled Smoking Status: Former smoker alcohol intake: current alcohol intake frequency: 3 or more drinks per day substance use type: does not use what type of physical activity do you participate in: none seatbelt use: always do you feel safe at home: Yes additional social history: single ROS Constitutional Constitutional: Denies anorexia, change in weight, fever(s), night sweats or weakness Eyes Eyes: Denies blurry vision, change in vision, discharge from eye(s) or eye pain Cardiovascular Cardiovascular: Denies chest pain, claudication, dyspnea on exertion, edema or palpitations Respiratory/Chest Respiratory/Chest: Denies cough, hemoptysis, shortness of breath at rest or shortness of breath with exertion Gastrointestinal Gastrointestinal: Reports abdominal pain; Denies constipation, diarrhea, hematemesis, hematochezia, melena, nausea or vomiting Genitourinary Genitourinary: Denies difficulty urinating, dysuria, hematuria, urinary freq uency, urinary hesitancy, urinary incontinence or urinary urgency Musculoskeletal Musculoskeletal: Denies back pain, joint pain, joint stiffness, joint swelling, myalgias or neck pain Neurologic Neurologic: Denies abnormal gait, abnormal speech, confusion, dizziness, focal weakness, headache(s), loss of vision, numbness, other visual disturbances, paresthesias, syncope or tingling Psychiatric Psychiatric: Denies anxiety, cognitive impairment, depression, irritability, mood swings or suicidal ideation Endocrine Endocrinology: Denies change in body appearance, cold intolerance, excessive sweating, heat intolerance, polydipsia or polyuria Hematologic/Lymphatic Hematologic/Lymphatic: Denies none, anemia, easy bleeding, easy bruising or lymphadenopathy Allergic/Immunologic Allergic/Immunologic: Denies rhinitis, urticaria, eczemia or asthma Vital Signs Vital Signs Vital Signs: 10/07/22 08:26 10/07/22 08:43 10/07/22 12:00 Temperature 97.5 F L Temperature Source Temporal Pulse Rate 95 90 Respiratory Rate 14 15 18 Respiratory Effort Respiratory Depth Respiratory Pattern Blood Pressure 125/86 H 141/92 H Blood Pressure Mean 99 108 Blood Pressure Source Blood Pressure Position Blood Pressure Location Pulse Ox 98 97 Oxygen Delivery Method Room Air Room Air 10/07/22 14:00 10/07/22 14:51 10/07/22 17:15 Temperature 98.9 F 96.8 F L Temperature Source Temporal Temporal Pulse Rate 83 84 92 Respiratory Rate 14 14 18 Respiratory Effort Respiratory Depth Respiratory Pattern Blood Pressure 99/67 99/67 119/91 H Blood Pressure Mean 77 77 100 Blood Pressure Source Monitor Blood Pressure Position Semi-Fowlers Blood Pressure Location Left Arm Pulse Ox 97 96 99 Oxygen Delivery Method Room Air Room Air Room Air 10/07/22 17:33 Temperature Temperature Source Pulse Rate Respiratory Rate Respiratory Effort Normal Non-Labored Respiratory Depth Normal Respiratory Pattern Normal Blood Pressure Blood Pressure Mean Blood Pressure Source Blood Pressure Position Blood Pressure Location Pulse Ox Oxygen Delivery Method Room Air Weight Weight: 74.843 kg Body Mass Index (BMI) 28.3 Physical Exam Const alert, oriented x3 and no apparent distress Constitutional Narrative: Patient appears older than her stated age General Appearance: cooperative, well kempt and well developed Orientation / Consciousness: awake, oriented to person, oriented to place and oriented to time HEENT normocephalic, head/scalp atraumatic, hearing grossly normal bilaterally and moist oral mucous membranes Eyes PERRL, EOMs intact bilaterally and conjunctivae normal Neck supple, no JVD, thyroid normal and no carotid bruits General: trachea midline Resp normal respiratory effort and clear to auscultation bilaterally Auscultation: Negative for rales, rhonchi or wheezes Cardio regular rate, regular rhythm, S1 normal heart sound, S2 normal heart sound, no murmurs, no rub and no gallops GI GI Narrative: Abdomen is mildly distended and tympanic, it is also mildly tender, bowel sounds are diminished Extremity no clubbing, cyanosis or edema Skin no rashes or lesions noted General Skin Exam: no breakdown Neuro oriented x3, CN's II-XII intact bilaterally, moves all extremities, no focal motor deficits and no sensory deficits noted Sensorium / Orientation: awake, alert, oriented to person, oriented to place and oriented to time Speech: speech normal Psych affect normal Results Lab / Micro Data Result Diagrams: 10/07/22 08:55 10/07/22 08:55 Labs: Laboratory Results - last 24 hr 10/07/22 08:55: WBC 7.4, RBC 4.92, Hgb 15.8 H, Hct 47.1 H, MCV 95.7, MCH 32.1 H, MCHC 33.5, RDW Std Deviation 53.1 H, RDW Coeff of Laxmi 15.1 H, Plt Count 165, MPV 9.9, Immature Gran % (Auto) 0.500, Neut % (Auto) 76.1 H, Lymph % (Auto) 11.8 L, [place] % (Auto) 11.2 H, Eos % (Auto) 0.1, Baso % (Auto) 0.3, Absolute Neuts (auto) 5.6, Absolute Lymphs (auto) 0.87, Nucleated RBC % 0 10/07/22 08:55: Sodium 133 L, Potassium 4.5, Chloride 106, Carbon Dioxide 11.0 L , Anion Gap 16 H, BUN 22 H, Creatinine 1.10 H, Estim Creat Clear Calc 45.20, Est GFR (MDRD) Af Amer 64, Est GFR (MDRD) Non-Af 53 L, BUN/Creatinine Ratio 20.0, Glucose 155 H, Calcium 8.5, Total Bilirubin 0.90, Direct Bilirubin 0.28, AST 43 H, ALT 42, Alkaline Phosphatase 127 H, Total Protein 8.7 H, Albumin 3.8, Mer bulin 4.9 H, Lipase 2016 H Radiology Impression Gallbladder Ultrasound 10/07/22 10:09 IMPRESSION: Hepatomegaly and fatty infiltration of the liver. Sludge and a solitary gallstone is seen within the gallbladder lumen. Electronically Signed: Pedro Timmons MD at 12:58 EDT , Assessment & Plan Assessment/Plan (1) Pancreatitis: PLAN: Plan 1. Recurrent alcoholic pancreatitis-patient will be admitted to [facility], she will be given IV fluids and IV pain medications, patient will be on clear liquids, I do not think gastroenterology needs to see the patient at this time #2 chronic alcoholism-patient denies ever going through DTs, she quit drinking 3 days ago and does not feel nervous or anxious today, I will talk more about follow-up for this as an outpatient with her tomorrow. #3 mild dehydration-patient will be receiving IV fluids #4 gallstone-I briefly talked with gastroenterology, they do not feel the patient needs an ERCP #5 bipolar disorder-complicates care, medical course, recovery, and prognosis, patient will remain on her psychiatric medications Total clinical time spent by myself addressing the patient's medical issues, reviewing all the data, and collaborating with patient's care team: 75 minutes Charges/Coding Visit Charges Inpatient E&M: 23440 Init Hosp L3
--- NOTE | 2022-10-07 19:39 | NURSING ---
denies need for nausea at this time.
[2022-10-07] MEDS: Menthol/Lanolin/Calamine/Znox 113 GM Tube 1 APPLIC TOPICAL (21:35)
[2022-10-07] MEDS: Heparin Injection (Vial) 5,000 UNIT/ML VIAL 5000 UNIT SC (21:35)
[2022-10-07] MEDS: Metoprolol(XL)Succ 50 MG Tablet PO (21:35)
[2022-10-07] MEDS: busPIRone 5 MG Tablet 10 MG PO (21:36)
[2022-10-07] MEDS: Ursodiol 250 MG Tablet PO (21:37)
[2022-10-08] VITALS (7 sets, daily range): BP systolic 109–119; BP diastolic 61–80; PULSE 80–102; RESP 18–20; TEMP 36.7–37.1; O2SAT 93–95
[2022-10-08] MEDS: Ondansetron 4 MG/2 ML Vial IV ×2 (02:17→13:12)
[2022-10-08] MEDS: 0.9% Normal Saline 1,000 ML 150 ML IV ×3 (06:07→18:05)
[2022-10-08] MEDS: HYDROmorphone 0.5 MG/0.5 ML SYRINGE IV ×3 (06:07→19:56)
[2022-10-08] MEDS: Menthol/Lanolin/Calamine/Znox 113 GM Tube 1 APPLIC TOPICAL ×3 (06:07→21:38)
[2022-10-08 07:15] LABS: Absolute Lymphocyte Count 1.14 X10^3/uL (0.83-4.51); Absolute Neutrophil Count 4.3 X10^3/uL (2.0-7.7); Basophil# 0.03 X10^3/uL; Basophil% 0.5 % (0-1); Eosinophil# 0.06 X10^3/uL; Hematocrit 35.7 % (37-47); Hemoglobin 12.3 g/dL (12.0-15.0); Lymphocyte # 1.14 X10^3/ul (0.83-4.51); Lymphocyte % 18.2 % (19-41); Mean Corp Hgb Conc 34.5 g/dL (32-36); Monocyte# 0.73 X10^3/uL; Monocyte% 11.7 % (0-10); NRBC Flagged by Analyzer 0 % (0-5); Neutrophil # 4.27 X10^3/uL (2.7-7.7); Neutrophil % 68.1 % (47-70); Platelet Count 123 K/mm3 (150-450); RBC Distribution Width CV 15.2 % (11.6-14.6); RBC Distribution Width SD 50.9 fl (35.1-43.9); Red Blood Count 3.84 M/mm3 (4.2-5.4); White Blood Count 6.3 K/mm3 (4.4-11.0)
[2022-10-08 07:38] LABS: ALB/GLOB Ratio 0.8 RATIO (0.9-2.4); AST(SGOT) 41 U/L (15-37); Alanine Aminotransfer ALT/SGPT 32 U/L (13-56); Albumin, Serum 2.8 g/dL (3.2-5.0); Alkaline Phosphatase 92 U/L (45-117); Anion Gap 9 (5-15); BUN 8 mg/dL (7-18); BUN/Creat Ratio 14.1 RATIO (10-20); Calcium,Total 7.3 mg/dL (8.5-10.1); Chloride 113 mmol/L (98-107); Creatinine, Serum 0.57 mg/dL (0.55-1.02); EST Glomerular Filtration Rate 114 mL/min (>60); Est Glom Filt Rate - Afr Amer 138 mL/min (>60); Estimated Creatinine Clearance 87.23 ml/min; Globulin 3.5 g/dL (2.2-4.2); Glucose 98 mg/dL (74-106); Potassium 3.2 mmol/L (3.5-5.1); Protein, Total 6.3 g/dL (6.4-8.2); Sodium Level 140 mmol/L (136-145)
[2022-10-08] MEDS: Ensure Clear 120 ML Liquid PO ×3 (08:01→18:05)
[2022-10-08] MEDS: Metoprolol(XL)Succ 50 MG Tablet PO ×2 (08:04→21:37)
[2022-10-08] MEDS: Ursodiol 250 MG Tablet PO ×2 (08:04→21:38)
[2022-10-08] MEDS: ARIPiprazole 10 MG Tablet PO (08:04)
[2022-10-08] MEDS: busPIRone 5 MG Tablet 10 MG PO ×2 (08:04→21:37)
[2022-10-08] MEDS: Heparin Injection (Vial) 5,000 UNIT/ML VIAL 5000 UNIT SC ×2 (08:13→21:37)
--- NOTE | 2022-10-08 10:00 | CASEMGMT ---
ARTUR POLLOCK Assessment: Face to Face with pt for initial transition planning/care coordination assessment. ARTUR POLLOCK introduced self and role at [facility], pt voices understanding and consents to assessment. Pt is A/O x4 and answers all questions appropriately at this time. Pt sitting up in chair in no distress with little eye contact throughout assessment. Care providers, pharmacy, and demographics verified/updated. Admitting Dx: recurrent pancreatitis PCP:Jesusita Specialists:Friend, GI; Lam, ENT; Chapoi, pain mgmt Preferred Pharmacy: [facility] Retail Insurance: [facility] Community Prescription Benefit: yes LNOK: Meme Dietz, friend Living Arrangements: Pt lives alone in a ground level apt with 2 steps to enter with a rail. Pt reports she has needed help for the past month with ADL's d/t her vertigo. She states she will start going to [place] for showers which was set up through [facility]. Transportation: Pt drives self and denies concerns with transportation. DME/HHC/SNF: Pt has a shower chair, raised toilet seat, medic alert and FWW. Pt states she started using the FWW recently. Pt had aides through [facility] until around Bre[place] but states they do not have staffing for an aide now. Updated SW on [facility] Services. Pt recently went through home PT and OT for her vertigo. She states that she learned what she needed and they have dc'd. She is unsure of the name of the agency who provided the care. Pt denies any need for therapy now. Pt states no concerns with going home at time of dc. Pt reports she drinks two tall glasses of vodka diluted with gatorade daily but has stopped since this bout of pancreatitis. Pt denied need for any resources for alcohol stating I have been through all of that. Pt denies any street drug or illegal drug use. Pt states no further concerns/needs. CM to follow. Advised pt to ask CM if any further question/concerns/needs arise, voices understanding. Pt Goal: Home Plan: Home, [employer] as set up by J C Lads Dunn.
[2022-10-08] MEDS: 0.9% Saline Lock 10 ML Syringe IV ×2 (13:08→19:56)
--- NOTE | 2022-10-08 14:31 | CASEMGMT ---
Social Work VIJAY notified by RN PHILL that pt has services. SW called to inquire about who pt CM is and make a report about pt admittance to [facility]. Pt CM is Natalie Rodriguez. VIJAY called Natalie and left a message as there was no answer. VIJAY informed that pt is at [facility]. VIJAY also included in the message that Housekeeper Supervisor Irene murphy at [facility] inquired if pt could receive home delivered meals as pt reported not being able to prepare meals for self for several weeks. VIJAY requested a call back regarding what services pt receives through [facility] as well. SHERRILL Aguilera
--- NOTE | 2022-10-08 16:05 | CHAPLAIN ---
Type of Pastoral Visit _x__ Initial Visit ___ Follow-up Visit ___ On-call Visit ___ General Patient Visit ___ Spiritual Assessment ___ Family Conference ___ Bereavement ___ Rapid Response ___ Code Blue ___ Other (describe below) Pastoral Care Referral From _x__ Patient ___ Family ___ Nurse ___ Physician ___ Seasoner Hand ___ Mule Rider ___ Other (describe below) Sacrament/Intervention _x__ Active listening ___ Anointing ___ Orthodoxy ___ Bereavement ___ Communion _x__ Kayla exploration ___ _x__ Life review _x__ Prayer ___ Reconciliation ___ Sacrament of Sick _x__ Supportive presence ___ Wedding ___ Other (describe below) Pastoral Comments patient has been seen before in previous admissions; pt welcomes this institutional asset manager and gives updates on her health including her struggle to control use of alcohol; pt is talkative about her situation, goals, and future; pt processing many thoughts about these things; time given to listen, support, and pray with pt
--- NOTE | 2022-10-08 18:32 | PN.HOSP_ITS ---
Reason for Visit Reason for Visit: Diagnoses Acute pancreatitis without necrosis or infection, unspecified (10/07/22) Subjective Subjective Patient was seen and examined today, she states she is having less abdominal pain today. Objective Data Objective Data Vital Signs: Vital Signs Temp Pulse Resp BP Pulse Ox O2 Del Method 98.5 F 91 18 109/72 95 Room Air 10/08/22 15:59 10/08/22 15:59 10/08/22 15:59 10/08/22 15:59 10/08/22 15:59 10/08/22 15:59 Oxygen Delivery Method Room Air Weight: 74.843 kg Body Mass Index (BMI) 28.3 Intake & Output: Intake and Output for Last 24 Hours 10/06/22 10/07/22 10/08/22 23:59 23:59 23:59 Intake Total 2927.5 / 2927.5 3265.0 / 3265.0 Output Total 300 / 300 Balance 2927.5 / 2927.5 2965.0 / 2965.0 Lab / Micro Data Result Diagrams: 10/08/22 06:42 10/08/22 06:42 Labs: Laboratory Results - last 24 hr 10/08/22 06:42: WBC 6.3, RBC 3.84 L, Hgb 12.3, Hct 35.7 L, MCV 93.0, MCH 32.0, MCHC 34.5, RDW Std Deviation 50.9 H, RDW Coeff of Laxmi 15.2 H, Plt Count 123 L, MPV 10.0, Immature Gran % (Auto) 0.500, Neut % (Auto) 68.1, Lymph % (Auto) 18.2 L, [place] % (Auto) 11.7 H, Eos % (Auto) 1.0, Baso % (Auto) 0.5, Absolute Neuts (auto) 4.3, Absolute Lymphs (auto) 1.14, Nucleated RBC % 0 10/08/22 06:42: Sodium 140, Potassium 3.2 L, Chloride 113 H, Carbon Dioxide 18.0 L, Anion Gap 9, BUN 8, Creatinine 0.57, Estim Creat Clear Calc 87.23, Est GFR (MDRD) Af Amer 138, Est GFR (MDRD) Non-Af 114, BUN/Creatinine Ratio 14.1, Glucose 98, Calcium 7.3 L, Total Bilirubin 0.70, AST 41 H, ALT 32, Alkaline Phosphatase 92, Total Protein 6.3 L, Albumin 2.8 L, Globulin 3.5, Albumin/Globulin Ratio 0.8 L Physical Exam Const alert, oriented x3, no apparent distress and healthy appearing General Appearance: cooperative, well kempt and well developed Orientation / Consciousness: awake, oriented to person, oriented to place and oriented to time HEENT normocephalic and moist oral mucous membranes Eyes PERRL, EOMs intact bilaterally and conjunctivae normal Neck supple, no JVD, thyroid normal and no carotid bruits General: trachea midline Resp normal respiratory effort and clear to auscultation bilaterally Auscultation: Negative for rales, rhonchi or wheezes Cardio regular rate, regular rhythm, no murmurs, no rub and no gallops GI normal to inspection, nondistended, normoactive bowel sounds GI Narrative: Patient has mild abdominal distention with some mild abdominal tenderness which is diffuse Extremity no clubbing, cyanosis or edema Skin no rashes or lesions noted General Skin Exam: no breakdown Neuro oriented x3, CN's II-XII intact bilaterally, moves all extremities, no focal motor deficits and no sensory deficits noted Sensorium / Orientation: awake and alert Speech: speech normal Psych affect normal Assessment & Plan Assessment/Plan (1) Pancreatitis: PLAN: Plan 1. Recurrent alcoholic pancreatitis-continue IV fluids at this time, I may be able to advance the patient's diet tomorrow morning. #2 chronic alcoholism-patient denies ever going through DTs, she quit drinking 3 days ago and does not feel nervous or anxious today, I will talk more about follow-up for this as an outpatient with her tomorrow. I had director of social work give the patient information concerning 180. #3 mild dehydration-patient will continue receiving IV fluids #4 gallstone-no treatment necessary at this time #5 bipolar disorder-complicates care, medical course, recovery, and prognosis, patient will remain on her psychiatric medications Total clinical time spent by myself addressing the patient's medical issues, reviewing all the data, and collaborating with patient's care team: 35 minutes Charges/Coding Visit Charges Inpatient E&M: 84952 Subs Hosp L2
[2022-10-09] MEDS: 0.9% Normal Saline 1,000 ML 150 ML IV ×2 (00:03→06:13)
[2022-10-09 02:54] VITALS: BP 128/82; PULSE 82; RESP 15; TEMP 36.6; O2SAT 98
[2022-10-09] MEDS: 0.9% Saline Lock 10 ML Syringe IV (03:11)
[2022-10-09] MEDS: HYDROmorphone 0.5 MG/0.5 ML SYRINGE IV (03:12)
[2022-10-09] MEDS: Menthol/Lanolin/Calamine/Znox 113 GM Tube 1 APPLIC TOPICAL ×3 (03:14→22:26)
[2022-10-09 08:27] VITALS: BP 137/84; PULSE 87; RESP 16; TEMP 36.6; O2SAT 98
[2022-10-09] MEDS: Ensure Clear 120 ML Liquid PO ×3 (10:05→17:58)
[2022-10-09] MEDS: oxyCODONE 5 MG Tablet 10 MG PO ×3 (10:05→22:23)
[2022-10-09 10:06] VITALS: PULSE 87
[2022-10-09] MEDS: busPIRone 5 MG Tablet 10 MG PO ×2 (10:06→22:24)
[2022-10-09] MEDS: ARIPiprazole 10 MG Tablet PO (10:06)
[2022-10-09] MEDS: Heparin Injection (Vial) 5,000 UNIT/ML VIAL 5000 UNIT SC ×2 (10:06→22:25)
[2022-10-09] MEDS: Metoprolol(XL)Succ 50 MG Tablet PO ×2 (10:06→22:25)
[2022-10-09] MEDS: Ursodiol 250 MG Tablet PO ×2 (10:07→22:24)
--- NOTE | 2022-10-09 11:41 | PN.HOSP_ITS ---
Reason for Visit Reason for Visit: Diagnoses Acute pancreatitis without necrosis or infection, unspecified (10/07/22) Subjective Subjective Patient was seen and examined today, she still is complaining of nausea and generalized abdominal pain although she states the abdominal pain is not as severe as yesterday. Objective Data Objective Data Vital Signs: Vital Signs Temp Pulse Resp BP Pulse Ox O2 Del Method 97.9 F 87 16 137/84 H 98 Room Air 10/09/22 08:27 10/09/22 10:06 10/09/22 08:27 10/09/22 08:27 10/09/22 08:27 10/09/22 08:28 Oxygen Delivery Method Room Air Weight: 74.843 kg Body Mass Index (BMI) 28.3 Intake & Output: Intake and Output for Last 24 Hours 10/07/22 10/08/22 10/09/22 23:59 23:59 23:59 Intake Total 2927.5 / 2927.5 3555.0 / 3555.0 1900 / 1900 Output Total 600 / 600 500 / 500 Balance 2927.5 / 2927.5 2955.0 / 2955.0 1400 / 1400 Lab / Micro Data Result Diagrams: 10/08/22 06:42 10/08/22 06:42 Physical Exam Narrative alert, oriented x3, no apparent distress and healthy appearing General Appearance: cooperative, well kempt and well developed Orientation / Consciousness: awake, oriented to person, oriented to place and oriented to time HEENT normocephalic and moist oral mucous membranes Eyes PERRL, EOMs intact bilaterally and conjunctivae normal Neck supple, no JVD, thyroid normal and no carotid bruits General: trachea midline Resp normal respiratory effort and clear to auscultation bilaterally Auscultation: Negative for rales, rhonchi or wheezes Cardio regular rate, regular rhythm, no murmurs, no rub and no gallops GI normal to inspection, nondistended, normoactive bowel sounds GI Narrative: Patient has mild abdominal distention with some mild abdominal tenderness which is diffuse Extremity no clubbing, cyanosis or edema Skin no rashes or lesions noted General Skin Exam: no breakdown Neuro oriented x3, CN's II-XII intact bilaterally, moves all extremities, no focal motor deficits and no sensory deficits noted Sensorium / Orientation: awake and alert Speech: speech normal Psych affect normal Assessment & Plan Assessment/Plan (1) Pancreatitis: PLAN: Plan 1. Recurrent alcoholic pancreatitis-continue IV fluids at this time, patient remains on clear liquid diet, I have decided to decrease the patient's IV fluids to 100 cc/h. #2 chronic alcoholism-patient denies ever going through DTs, she quit drinking 3 days ago and does not feel nervous or anxious today, I will talk more about follow-up for this as an outpatient with her tomorrow. I had social service assistant give the patient information concerning 180. #3 mild dehydration-patient will continue receiving IV fluids #4 gallstone-no treatment necessary at this time #5 bipolar disorder-complicates care, medical course, recovery, and prognosis, patient will remain on her psychiatric medications Total clinical time spent by myself addressing the patient's medical issues, reviewing all the data, and collaborating with patient's care team: 35 minutes Charges/Coding Visit Charges Inpatient E&M: 00911 Subs Hosp L2
[2022-10-09] MEDS: 0.9% Normal Saline 1,000 ML 100 ML IV ×2 (13:02→22:51)
[2022-10-09 14:23] VITALS: BP 111/82; PULSE 95; RESP 17; TEMP 36.9; O2SAT 97
[2022-10-09 22:15] VITALS: BP 110/69; PULSE 86; RESP 12; TEMP 37.1; O2SAT 95
[2022-10-09 22:25] VITALS: BP 110/69; PULSE 86
[2022-10-10] VITALS (7 sets, daily range): BP systolic 114–139; BP diastolic 70–86; PULSE 70–101; RESP 12–18; TEMP 36.6–37; O2SAT 95–99
[2022-10-10] MEDS: Menthol/Lanolin/Calamine/Znox 113 GM Tube 1 APPLIC TOPICAL ×3 (04:26→21:43)
[2022-10-10] MEDS: oxyCODONE 5 MG Tablet 10 MG PO (04:35)
[2022-10-10] MEDS: busPIRone 5 MG Tablet 10 MG PO ×2 (09:17→21:43)
[2022-10-10] MEDS: Metoprolol(XL)Succ 50 MG Tablet PO ×2 (09:18→21:43)
[2022-10-10] MEDS: Ursodiol 250 MG Tablet PO ×2 (09:18→21:43)
[2022-10-10] MEDS: Heparin Injection (Vial) 5,000 UNIT/ML VIAL 5000 UNIT SC ×2 (09:18→21:43)
[2022-10-10] MEDS: ARIPiprazole 10 MG Tablet PO (09:18)
[2022-10-10] MEDS: Ensure Clear 120 ML Liquid PO ×4 (09:18→21:43)
--- NOTE | 2022-10-10 12:40 | CASEMGMT ---
Addendum entered by Silva Mejia 10/10/22 13:47: Return call from Natalie Rodriguez at [facility] who states pt has had multiple home delivered meals over time and pt has cancelled them. VIJAY met with pt and introduced self and role of SW. SW updated pt that the image assembler is requesting pt receive home delivered meals and that [facility] can provide. Pt denied home meals as she states they are not health enough or tasty enough. SW encouraged pt to reach out to CM if she changes her mind. Natalie Rodriguez to be updated. SHERRILL Joshua Original Note: Social Work SW placed call to Natalie Rodriguez, home care giver at [facility] and received VM. VIJAY spoke with Miguel Amaya at and updated on pt admission and requested that home delivered meals be added to pt's care plan. Miguel states he will pass this information on to Natalie and that this service could be added. VIJAY to updated [facility] of pt's discharge when appropriate. SHERRILL Joshua
[2022-10-10] MEDS: Creon 24,000 unit DR Capsule 1 CAP PO ×2 (12:59→17:11)
--- NOTE | 2022-10-10 18:48 | PCM.PN.HOSP ---
Reason for Visit Reason for Visit: Diagnoses Acute pancreatitis without necrosis or infection, unspecified (10/07/22) Subjective Subjective Patient was seen and examined today, she complained of generalized weakness and dizziness upon ambulating, I elected to stop her pain medications at this time and I will reevaluate her in the morning. Patient's diet was increased today. Objective Data Objective Data Vital Signs: Vital Signs Temp Pulse Resp BP Pulse Ox O2 Del Method 98.6 F 80 18 128/70 H 98 Room Air 10/10/22 16:00 10/10/22 16:00 10/10/22 16:00 10/10/22 16:00 10/10/22 16:00 10/10/22 16:00 Oxygen Delivery Method Room Air Weight: 74.843 kg Body Mass Index (BMI) 28.3 Intake & Output: Intake and Output for Last 24 Hours 10/08/22 10/09/22 10/10/22 23:59 23:59 23:59 Intake Total 3555.0 / 3555.0 3881.67 / 4281.67 1500 / 1500 Output Total 600 / 600 500 / 1100 1100 / 1100 Balance 2955.0 / 2955.0 3381.67 / 3181.67 400 / 400 Lab / Micro Data Result Diagrams: 10/08/22 06:42 10/08/22 06:42 Physical Exam Narrative alert, oriented x3, no apparent distress and healthy appearing General Appearance: cooperative, well kempt and well developed Orientation / Consciousness: awake, oriented to person, oriented to place and oriented to time HEENT normocephalic and moist oral mucous membranes Eyes PERRL, EOMs intact bilaterally and conjunctivae normal Neck supple, no JVD, thyroid normal and no carotid bruits General: trachea midline Resp normal respiratory effort and clear to auscultation bilaterally Auscultation: Negative for rales, rhonchi or wheezes Cardio regular rate, regular rhythm, no murmurs, no rub and no gallops GI normal to inspection, nondistended, normoactive bowel sounds GI Narrative: Patient has mild abdominal distention with some mild abdominal tenderness which is diffuse Extremity no clubbing, cyanosis or edema Skin no rashes or lesions noted General Skin Exam: no breakdown Neuro oriented x3, CN's II-XII intact bilaterally, moves all extremities, no focal motor deficits and no sensory deficits noted Sensorium / Orientation: awake and alert Speech: speech normal Psych affect normal Assessment & Plan Assessment/Plan (1) Pancreatitis: PLAN: Plan 1. Recurrent alcoholic pancreatitis-continue IV fluids at this time, patient was placed on a regular diet today, patient was taken off pain meds today due to complaints of dizziness #2 chronic alcoholism-patient will need follow-up as an outpatient with alcohol detox services #3 mild dehydration-resolved at this time, patient is not on any IVs #4 gallstone-no treatment necessary at this time #5 bipolar disorder-complicates care, medical course, recovery, and prognosis, patient will remain on her psychiatric medications Total clinical time spent by myself addressing the patient's medical issues, reviewing all the data, and collaborating with patient's care team: 35 minutes Charges/Coding Visit Charges Inpatient E&M: 85956 Subs Hosp L2
[2022-10-11 04:20] VITALS: BP 132/98; PULSE 80; RESP 18; TEMP 36.3; O2SAT 93
[2022-10-11] MEDS: Menthol/Lanolin/Calamine/Znox 113 GM Tube 1 APPLIC TOPICAL (04:49)
[2022-10-11] MEDS: Creon 24,000 unit DR Capsule 1 CAP PO ×2 (07:46→11:46)
[2022-10-11 08:55] VITALS: BP 130/77; PULSE 80; RESP 18; TEMP 36.6; O2SAT 96; O2SAT 97
[2022-10-11 10:14] VITALS: PULSE 80
[2022-10-11] MEDS: Metoprolol(XL)Succ 50 MG Tablet PO (10:14)
[2022-10-11] MEDS: ARIPiprazole 10 MG Tablet PO (10:15)
[2022-10-11] MEDS: busPIRone 5 MG Tablet 10 MG PO (10:15)
[2022-10-11] MEDS: Ensure Clear 120 ML Liquid PO (10:15)
[2022-10-11] MEDS: Heparin Injection (Vial) 5,000 UNIT/ML VIAL 5000 UNIT SC (10:15)
[2022-10-11] MEDS: Ursodiol 250 MG Tablet PO (10:23)
--- NOTE | 2022-10-11 11:05 | CASEMGMT ---
ARTUR CM into pt room. Pt sitting up in chair. Pt states that she feels comfortable dc'ing. She states she has home exercises from prior PT and denies need for any homegoing services.
--- NOTE | 2022-10-11 11:18 | DCINST_ITS ---
Discharge Instructions Diet Discharge Diet: No restrictions Activity Discharge Activity: Return to Normal Activity Weight Bearing Status: Full weight bearing Follow Up Care Test Results: Test results from this visit will be discussed in further detail at your follow- up appointment, if applicable. Discharge Plan Admission Admit Date/Time: 10/07/22 14:48 Primary Reason for Your Visit: pancreatitis Attending Provider: Marcell Richard Primary Care Provider: Edward Mc Discharge Orders/Prescriptions Prescriptions: Continued acetaminophen [Tylenol Extra Strength] 500 mg tablet 1,000 mg PO Q6H PRN (Reason: pain) ketoconazole 2 % shampoo 1 applic topical 2XW Qty: 120 2RF (DME) Adjustable Underwear Misc See Rx Instructions .ROUTE .MEDSUPPLY Qty: 200 3RF Rx Instructions: As directed Zenpep 25,000-79,000- 105,000 unit capsule,delayed release(DR/EC) 1 cap PO TID Qty: 90 3RF Rx Instructions: administer with meals and/or snacks ondansetron HCl 8 mg tablet 8 mg PO Q8H PRN (Reason: nausea and vomiting) Qty: 14 0RF (DME) blood pressure monitor Kit See Rx Instructions .MEDSUPPLY Qty: 1 0RF Rx Instructions: Check blood pressure daily for hypertension I10 metoprolol succinate 50 mg tablet extended release 24 hr 50 mg PO BID 90 Days Qty: 180 2RF aripiprazole 10 mg tablet 10 mg PO DAILY Qty: 30 2RF buspirone 10 mg tablet 10 mg PO BID Qty: 60 2RF (DME) cane Device See Rx Instructions .Route Qty: 1 3RF Rx Instructions: As directed clobetasol 0.05 % shampoo 1 applic topical WE ursodiol 250 mg Tablet 250 mg PO BID Qty: 60 0RF (DME) Lift Chair See Rx Instructions .Route .MEDSUPPLY Qty: 1 0RF Rx Instructions: As directed meloxicam 15 mg tablet 15 mg PO DAILY PRN (Reason: pain) Qty: 90 0RF denosumab 60 mg/mL syringe 60 mg subcut [id number] cholecalciferol (vitamin D3) 125 mcg (5,000 unit) capsule 125 mcg PO DAILY Qty: 30 2RF multivitamin Tablet 1 tab PO QAM Qty: 90 3RF tizanidine 4 mg capsule 4 mg PO BID PRN (Reason: muscle spasticity) Qty: 60 0RF Referrals / Follow Up: Edward Mc MD [Primary Care Provider] - See Referral Note (At next scheduled appointment time) Disposition Disposition (needs filled in before D/C Order can be placed): Home, Self Care
--- NOTE | 2022-10-11 11:22 | DS.PCM_ITS ---
Providers Date of Admission: 10/07/22 Date of Discharge: 10/11/22 Primary Care Physician: Dr. Edward Mc MD Reason For Visit: RECURRENT PANCREATITIS Diagnosis Discharge Diagnosis (1) Pancreatitis: Status: Acute Code(s): K85.90 - Acute pancreatitis without necrosis or infection, unspecified Plan 1. Recurrent alcoholic pancreatitis-continue IV fluids at this time, patient was placed on a regular diet today, patient was taken off pain meds today due to complaints of dizziness #2 chronic alcoholism-patient will need follow-up as an outpatient with alcohol detox services #3 mild dehydration-resolved at this time, patient is not on any IVs #4 gallstone-no treatment necessary at this time #5 bipolar disorder-complicates care, medical course, recovery, and prognosis, patient will remain on her psychiatric medications Total clinical time spent by myself addressing the patient's medical issues, reviewing all the data, and collaborating with patient's care team: 35 minutes Medications at Discharge Home Medications acetaminophen 500 mg tablet (Tylenol Extra Strength) 1,000 mg PO Q6H PRN pain 11/08/20 Lift Chair #1 ea 12/08/20 clobetasol 0.05 % shampoo 1 applic topical WE eczema 09/16/21 diaper,brief,adult,disposable (Adjustable Underwear) #200 ea 11/20/21 ketoconazole 2 % shampoo 1 applic topical 2XW #120 mL 01/23/22 ondansetron HCl 8 mg tablet 8 mg PO Q8H PRN nausea and vomiting #14 tabs 04/16/22 blood pressure monitor #1 ea 04/25/22 dayjcx-kzbduutx-dhwvajl 25,000-79,000-105,000 unit capsule,delayed rel (Zenpep) 1 cap PO TID #90 caps 05/01/22 metoprolol succinate 50 mg tablet,extended release 24 hr 50 mg PO BID 3 months #180 tabs 05/23/22 meloxicam 15 mg tablet 15 mg PO DAILY PRN pain #90 tabs 06/24/22 ursodiol 250 mg tablet 250 mg PO BID #60 tabs 07/23/22 denosumab 60 mg/mL subcutaneous syringe 60 mg subcut [id number] osteoporosis 08/01/22 cholecalciferol (vitamin D3) 125 mcg (5,000 unit) capsule 125 mcg PO DAILY supplement #30 caps 08/19/22 multivitamin 1 tab PO QAM supplement #90 tabs 08/19/22 cane #1 ea 08/28/22 aripiprazole 10 mg tablet 10 mg PO DAILY anxiety #30 tabs 09/17/22 buspirone 10 mg tablet 10 mg PO BID Anxiety #60 tabs 09/17/22 tizanidine 4 mg capsule 4 mg PO BID PRN muscle spasticity #60 caps 09/17/22 Hospital Course Operations None Procedures None Summary of Care Provided Minutes Spent on Discharge: 30 Hospital Course: This 62-year-old white female was seen in the emergency room at [facility] with complaints of generalized abdominal pain, work-up in the emergency room revealed the patient to have elevated lipase in keeping with recurrent alcoholic pancreatitis. Patient had admitted that she had been drinking alcohol recently. Patient was admitted to [place] [address], she was given IV fluids and IV pain medications and over the next several days, patient's symptoms resolved. On 10/11/2022, patient was seen and examined:alert, oriented x3, no apparent distress and healthy appearing General Appearance: cooperative, well kempt and well developed Orientation / Consciousness: awake, oriented to person, oriented to place and oriented to time HEENT normocephalic and moist oral mucous membranes Eyes PERRL, EOMs intact bilaterally and conjunctivae normal Neck supple, no JVD, thyroid normal and no carotid bruits General: trachea midline Resp normal respiratory effort and clear to auscultation bilaterally Auscultation: Negative for rales, rhonchi or wheezes Cardio regular rate, regular rhythm, no murmurs, no rub and no gallops GI normal to inspection, nondistended, normoactive bowel sounds GI Narrative: Patient has mild abdominal distention with some mild abdominal tenderness which is diffuse Extremity no clubbing, cyanosis or edema Skin no rashes or lesions noted General Skin Exam: no breakdown Neuro oriented x3, CN's II-XII intact bilaterally, moves all extremities, no focal motor deficits and no sensory deficits noted Sensorium / Orientation: awake and alert Speech: speech normal Psych affect normal Patient appears stable for discharge on 10/11/2022 to home Weight / BMI Weight Weight: 74.843 kg Body Mass Index (BMI) 28.3 ABG / Lab / Microbiology Data Result Diagrams: 10/08/22 06:42 10/08/22 06:42 D/C Instructions Discharge Diet: No restrictions Weight Bearing Status: Full weight bearing Meaningful Use Info Meaningful Use Diagnoses (Choose all that apply): None applicable Discharge Plan Admission Admit Date/Time: 10/07/22 14:48 Primary Reason for Your Visit: pancreatitis Attending Provider: Marcell Richard Primary Care Provider: Edward Mc Discharge Orders/Prescriptions Prescriptions: Continued acetaminophen [Tylenol Extra Strength] 500 mg tablet 1,000 mg PO Q6H PRN (Reason: pain) ketoconazole 2 % shampoo 1 applic topical 2XW Qty: 120 2RF (DME) Adjustable Underwear Misc See Rx Instructions .ROUTE .MEDSUPPLY Qty: 200 3RF Rx Instructions: As directed Zenpep 25,000-79,000- 105,000 unit capsule,delayed release(DR/EC) 1 cap PO TID Qty: 90 3RF Rx Instructions: administer with meals and/or snacks ondansetron HCl 8 mg tablet 8 mg PO Q8H PRN (Reason: nausea and vomiting) Qty: 14 0RF (DME) blood pressure monitor Kit See Rx Instructions .MEDSUPPLY Qty: 1 0RF Rx Instructions: Check blood pressure daily for hypertension I10 metoprolol succinate 50 mg tablet extended release 24 hr 50 mg PO BID 90 Days Qty: 180 2RF aripiprazole 10 mg tablet 10 mg PO DAILY Qty: 30 2RF buspirone 10 mg tablet 10 mg PO BID Qty: 60 2RF (DME) cane Device See Rx Instructions .Route Qty: 1 3RF Rx Instructions: As directed clobetasol 0.05 % shampoo 1 applic topical WE ursodiol 250 mg Tablet 250 mg PO BID Qty: 60 0RF (DME) Lift Chair See Rx Instructions .Route .MEDSUPPLY Qty: 1 0RF Rx Instructions: As directed meloxicam 15 mg tablet 15 mg PO DAILY PRN (Reason: pain) Qty: 90 0RF denosumab 60 mg/mL syringe 60 mg subcut [id number] cholecalciferol (vitamin D3) 125 mcg (5,000 unit) capsule 125 mcg PO DAILY Qty: 30 2RF multivitamin Tablet 1 tab PO QAM Qty: 90 3RF tizanidine 4 mg capsule 4 mg PO BID PRN (Reason: muscle spasticity) Qty: 60 0RF Referrals / Follow Up: Edward Mc MD [Primary Care Provider] - See Referral Note (At next scheduled appointment time) Disposition Disposition (needs filled in before D/C Order can be placed): Home, Self Care Charges/Coding Visit Charges Inpatient E&M: 83948 Disch Hosp >30min
[2022-10-11 13:37] VITALS: BP 101/79; PULSE 89; RESP 18; TEMP 36.6; O2SAT 98
--- NOTE | 2022-10-11 15:28 | CASEMGMT ---
SW faxed discharge report to [facility] (Natalie Rodriguez). Deneen Springer [employer] HARD[employer], [employer] DRIVER
== END 2022-10-11 14:30 | disposition home or self-care (01) | DRG 282 ==
LOC: ED 14:32 → MS3 15:58
PROVIDERS: Admitting Provider Internal Medicine; Emergency Provider Emergency Medicine; PCP Internal Medicine; Visit Provider Internal Medicine
DX: K85.20 Alcohol induced acute pancreatitis without necrosis or infection (principal); E86.0 Dehydration; F31.81 Bipolar II disorder; F10.20 Alcohol dependence, uncomplicated; I10 Essential (primary) hypertension; Z87.891 Personal history of nicotine dependence
CPT/HCPCS: 76705; 80048; 80053; 80076; 83690; 85025; 97162; 97530; 97802; 99284; J7030; A4216; J2405

== ENCOUNTER → 2022-11-27 | Outpatient (CLI) | payer MEDICAID, SELFPAY ==
[2022-11-27 12:29] LABS: ALB/GLOB Ratio 0.8 RATIO (0.9-2.4); AST(SGOT) 23 U/L (15-37); Alanine Aminotransfer ALT/SGPT 28 U/L (13-56); Albumin, Serum 3.7 g/dL (3.2-5.0); Alkaline Phosphatase 110 U/L (45-117); Anion Gap 6 (5-15); BUN 9 mg/dL (7-18); BUN/Creat Ratio 14.3 RATIO (10-20); Chloride 108 mmol/L (98-107); Creatinine, Serum 0.63 mg/dL (0.55-1.02); EST Glomerular Filtration Rate 102 mL/min (>60); Est Glom Filt Rate - Afr Amer 123 mL/min (>60); Globulin 4.6 g/dL (2.2-4.2); Glucose 105 mg/dL (74-106); Potassium 4.6 mmol/L (3.5-5.1); Protein, Total 8.3 g/dL (6.4-8.2); Sodium Level 140 mmol/L (136-145)
[2022-11-27 12:38] LABS: Absolute Lymphocyte Count 2.15 X10^3/uL (0.83-4.51); Absolute Neutrophil Count 3.4 X10^3/uL (2.0-7.7); Basophil# 0.04 X10^3/uL; Basophil% 0.6 % (0-1); Eosinophil# 0.15 X10^3/uL; Eosinophils% 2.4 % (0-5); Hematocrit 44.6 % (37-47); Hemoglobin 14.5 g/dL (12.0-15.0); Lymphocyte # 2.15 X10^3/ul (0.83-4.51); Lymphocyte % 34.8 % (19-41); Mean Corp Hgb Conc 32.5 g/dL (32-36); Mean Corpuscular Hgb 30.9 pg (27.0-32.0); Mean Corpuscular Volume 94.9 fL (81-99); Mean Platelet Vol. 11.1 fl (6.2-12.0); Monocyte# 0.45 X10^3/uL; Monocyte% 7.3 % (0-10); NRBC Flagged by Analyzer 0 % (0-5); Neutrophil # 3.37 X10^3/uL (2.7-7.7); Neutrophil % 54.6 % (47-70); Platelet Count 269 K/mm3 (150-450); RBC Distribution Width CV 13.4 % (11.6-14.6); RBC Distribution Width SD 47.2 fl (35.1-43.9); White Blood Count 6.2 K/mm3 (4.4-11.0)
== END | disposition home or self-care (01) ==
PROVIDERS: PCP Internal Medicine; Referring Provider Internal Medicine; Visit Provider Internal Medicine
DX: F31.9 Bipolar disorder, unspecified (principal); F10.20 Alcohol dependence, uncomplicated
CPT/HCPCS: 36415; 80053; 85025

== ENCOUNTER → 2023-03-18 | Outpatient (CLI) | payer MEDICAID, SELFPAY ==
[2023-03-18 08:54] LABS: Absolute Lymphocyte Count 1.08 X10^3/uL (0.83-4.51); Absolute Neutrophil Count 4.6 X10^3/uL (2.0-7.7); Basophil# 0.03 X10^3/uL; Basophil% 0.5 % (0-1); Eosinophil# 0.07 X10^3/uL; Eosinophils% 1.1 % (0-5); Hemoglobin 15.5 g/dL (12.0-15.0); Lymphocyte # 1.08 X10^3/ul (0.83-4.51); Lymphocyte % 17.2 % (19-41); Mean Corp Hgb Conc 33.7 g/dL (32-36); Mean Corpuscular Hgb 32.9 pg (27.0-32.0); Mean Corpuscular Volume 97.7 fL (81-99); Mean Platelet Vol. 10.3 fl (6.2-12.0); Monocyte# 0.47 X10^3/uL; Monocyte% 7.5 % (0-10); NRBC Flagged by Analyzer 0 % (0-5); Neutrophil % 73.1 % (47-70); Platelet Count 218 K/mm3 (150-450); RBC Distribution Width CV 13.4 % (11.6-14.6); RBC Distribution Width SD 48.4 fl (35.1-43.9); Red Blood Count 4.71 M/mm3 (4.2-5.4); White Blood Count 6.3 K/mm3 (4.4-11.0)
[2023-03-18 09:23] LABS: ALB/GLOB Ratio 0.7 RATIO (0.9-2.4); AST(SGOT) 108 U/L (15-37); Alanine Aminotransfer ALT/SGPT 92 U/L (13-56); Albumin, Serum 3.2 g/dL (3.2-5.0); Alkaline Phosphatase 143 U/L (45-117); Amylase 30 U/L (25-115); Anion Gap 15 (5-15); BUN 15 mg/dL (7-18); BUN/Creat Ratio 21.8 RATIO (10-20); Calcium,Total 8.9 mg/dL (8.5-10.1); Chloride 102 mmol/L (98-107); Creatinine, Serum 0.69 mg/dL (0.55-1.02); EST Glomerular Filtration Rate 91 mL/min (>60); Est Glom Filt Rate - Afr Amer 110 mL/min (>60); Globulin 4.8 g/dL (2.2-4.2); Glucose 125 mg/dL (74-106); Lipase 30 U/L (13-75); Potassium 3.7 mmol/L (3.5-5.1); Sodium Level 138 mmol/L (136-145)
[2023-03-19 15:08] LABS: Carbohydrate AG 19-9 9 U/mL (0-35); Endomysial Antibody IgA Negative (Negative); Immunoglobulin A 596 mg/dL (87-352); t-Transglutaminase IgA <2 U/mL (0-3)
== END | disposition home or self-care (01) ==
LOC: LAB 08:17
PROVIDERS: PCP Internal Medicine; Referring Provider Internal Medicine Gastroenterology; Visit Provider Internal Medicine Gastroenterology
DX: K85.90 Acute pancreatitis without necrosis or infection, unspecified (principal); F10.10 Alcohol abuse, uncomplicated
CPT/HCPCS: 36415; 80053; 82150; 82784; 83516; 83690; 85025; 86255; 86301

== ENCOUNTER → 2023-04-03 | Outpatient (CLI) | payer MEDICAID, SELFPAY ==
--- NOTE | 2023-04-03 06:50 | CT_ITS ---
STUDY: CT ABDOMEN AND PELVIS WITH CONTRAST REASON FOR EXAM: Female, 63 years old. Pancreatitis; gallstone RADIATION DOSAGE (If Supplied By Facility): CTDIvol = ( 15.07 ) mGy, DLP = ( 917.29 ) mGycm TECHNIQUE: Transaxial images were obtained from the dome of the diaphragm to the symphysis pubis with oral contrast. Oral and amp; IV Readi-CAT and amp; 100mL Isovue-300 was administered. Sagittal and coronal images were reconstructed. Individualized dose optimization techniques were used for this CT. COMPARISON: Comparison is made with prior study September 16, 2021. FINDINGS: Minimal bibasilar linear atelectasis. Coronary artery calcification. There is decreased attenuation of the liver consistent with steatosis. There are multiple small gallstones. Normal spleen. There is diffuse atrophy of the pancreas. There is a 1.3 cm cyst in the tail portion of the pancreas. This is unchanged. Normal bilateral adrenal glands. Normal right kidney. Normal left kidney. Normal visualized stomach. Normal small intestine. Normal colon. The appendix is visualized and appears normal. Normal abdominal aorta. Normal inferior vena cava. Normal retroperitoneum. Normal urinary bladder. Normal abdominal wall. Loss of height of the L5, L3 L2 and L1 vertebrae with multiple vertebroplasty. Status post right total hip replacement. CT/Abdomen/Pelvis WITH Contrast IMPRESSION: Fatty infiltration of the liver. Multiple small gallstones. Stable 1.3 cm cyst in the tail portion of the pancreas. Mild pancreatic atrophy. Electronically Signed: Pedro Timmons MD at 13:52 EDT ,
== END | disposition home or self-care (01) ==
LOC: CT 06:47
PROVIDERS: PCP Internal Medicine; Referring Provider Internal Medicine Gastroenterology; Visit Provider Internal Medicine Gastroenterology
DX: K85.90 Acute pancreatitis without necrosis or infection, unspecified (principal); F10.10 Alcohol abuse, uncomplicated
CPT/HCPCS: 74177; Q9967

== ENCOUNTER → 2023-05-26 | Outpatient (CLI) | payer MEDICAID, SELFPAY ==
[2023-05-26 12:28] LABS: Vitamin D,25 Hydroxy 85.1 ng/mL
[2023-05-26 12:33] LABS: ALB/GLOB Ratio 0.7 RATIO (0.9-2.4); AST(SGOT) 114 U/L (15-37); Alanine Aminotransfer ALT/SGPT 80 U/L (13-56); Albumin, Serum 3.5 g/dL (3.2-5.0); Alkaline Phosphatase 140 U/L (45-117); Anion Gap 11 (5-15); BUN 12 mg/dL (7-18); BUN/Creat Ratio 14.7 RATIO (10-20); Calcium,Total 9.2 mg/dL (8.5-10.1); Chloride 103 mmol/L (98-107); Creatinine, Serum 0.82 mg/dL (0.55-1.02); EST Glomerular Filtration Rate 75 mL/min (>60); Est Glom Filt Rate - Afr Amer 91 mL/min (>60); Globulin 4.7 g/dL (2.2-4.2); Glucose 129 mg/dL (74-106); Potassium 4.1 mmol/L (3.5-5.1); Protein, Total 8.2 g/dL (6.4-8.2); Sodium Level 139 mmol/L (136-145)
== END | disposition home or self-care (01) ==
LOC: BIMLAB 08:29
PROVIDERS: PCP Internal Medicine; Referring Provider Internal Medicine; Visit Provider Internal Medicine
DX: M81.0 Age-related osteoporosis without current pathological fracture (principal); F10.20 Alcohol dependence, uncomplicated
CPT/HCPCS: 36415; 80053; 82306

== ENCOUNTER 2023-06-16 13:14 | Emergency (ER) | payer MEDICAID, SELFPAY ==
[2023-06-16 13:16] VITALS: BP 135/89; PULSE 106; RESP 16; TEMP 36; O2SAT 97
[2023-06-16 13:17] VITALS: BMI 30.6
--- NOTE | 2023-06-16 14:04 | EX.ED.DYSGE1 ---
HPI <SUE Bedoya - Last Filed: 06/16/23 16:19> History of Present Illness Chief Complaint: Weakness Narrative Narrative: Patient presenting today due to generalized weakness that she has had for the past few days. She reports that she has a history of 3 previous ky[address] performed [address] Dr[address] Romero and feels like she may need another one performed. She does not have any pain to her back but she feels, like things are caving in. Patient is requesting an MRI to have this evaluated. She feels that she has gotten really worked up over all of this and as a result has not been eating or drinking much and now feels dehydrated and weak. Feels reports that she is concerned due to a bruise on her right big toe and does not want, my foot to be amputated from infection. Additionally, patient reports that she has felt short of breath over the past few days. She denies any chest pain, fever, chills, abdominal pain, nausea, vomiting, history of blood clots/recent surgery/procedures/travel/immobilization. [facility] <SUE Bedoya - Last Filed: 06/16/23 16:19> [facility] Medical History Alcohol use Alcohol use disorder, moderate, dependence Alcoholic pancreatitis Anxiety Bipolar II disorder Bowel incontinence Compression fracture Debility Depression Difficulty swallowing Elevated blood pressure reading Hypertension Injury of head and neck Leg cramps Marijuana use Neck pain Non-smoker Osteoporosis Pain at injection site Pancreatitis Scalp psoriasis Scoliosis Seborrheic dermatitis Shortness of breath on exertion Urinary incontinence Urinary urgency Walker as ambulation aid Wears contact lenses Home Medications acetaminophen 500 mg tablet (Tylenol Extra Strength) 1,000 mg PO Q6H PRN pain 11/08/20 [History Last Taken 10/06/22 20:50] Lift Chair #1 ea 12/08/20 [Rx Last Taken Unknown] clobetasol 0.05 % shampoo 1 applic topical WE eczema 09/16/21 [History Last Taken 06/11/23] diaper,brief,adult,disposable (Adjustable Underwear) #200 ea 11/20/21 [Rx Last Taken Unknown] ketoconazole 2 % shampoo 1 applic topical 2XW #120 mL 01/23/22 [Rx Last Taken 06/16/23] blood pressure monitor #1 ea 04/25/22 [Rx Last Taken Unknown] metoprolol succinate 50 mg tablet,extended release 24 hr 50 mg PO BID 3 months #180 tabs 05/23/22 [Rx Last Taken 06/16/23] denosumab 60 mg/mL subcutaneous syringe 60 mg subcut [id number] 08/01/22 [History Last Taken Unknown] multivitamin 1 tab PO QAM supplement #90 tabs 08/19/22 [Rx Last Taken 06/16/23] cane #1 ea 08/28/22 [Rx Last Taken Unknown] tizanidine 4 mg capsule 4 mg PO BID PRN muscle spasticity #60 caps 09/17/22 [Rx Last Taken Unknown] meloxicam 15 mg tablet 15 mg PO DAILY PRN pain #90 tabs 10/14/22 [Rx Last Taken Unknown] ursodiol 250 mg tablet 250 mg PO BID #60 tabs 10/14/22 [Rx Last Taken 06/16/23] nryaqk-jflhjzdb-onxqiyc 25,000-79,000-105,000 unit capsule,delayed rel (Zenpep) 1 cap PO TID #90 caps 02/05/23 [Rx Last Taken 06/16/23] cholecalciferol (vitamin D3) 125 mcg (5,000 unit) capsule See Rx Instructions .Route .COMPLEX #90 caps 03/07/23 [Rx Last Taken 06/16/23] aripiprazole 10 mg tablet See Rx Instructions .Route .COMPLEX #30 tabs 04/14/23 [Rx Last Taken 06/16/23] buspirone 10 mg tablet See Rx Instructions .Route .COMPLEX #60 tabs 05/12/23 [Rx Last Taken 06/16/23] Allergy/AdvReac Type Severity Reaction Status Date / Time No Known Allergies Allergy Verified 05/26/23 08:00 Family History Other Heart disease Osteoporosis Surgical History History of back surgery History of esophagogastroduodenoscopy (EGD) History of tubal ligation History of wisdom tooth extraction Hx of kyphoplasty Hx of total hip arthroplasty S/P kyphoplasty Social History household members: none current occupational status: disabled Smoking Status: Former smoker alcohol intake: current alcohol intake frequency: 3 or more drinks per day substance use type: does not use what type of physical activity do you participate in: none seatbelt use: always do you feel safe at home: Yes additional social history: single ROS <SUE Bedoya - Last Filed: 06/16/23 16:19> ROS ED Constitutional Constitutional ED: Denies chills or fever(s) Cardiovascular Cardiovascular: Denies chest pain or palpitations Respiratory/Chest Respiratory/Chest: Reports dyspnea on exertion; Denies cough Gastrointestinal Gastrointestinal: Denies abdominal pain, constipation, diarrhea, nausea or vomiting Genitourinary Genitourinary ED: Denies dysuria, hematuria or urinary urgency Musculoskeletal Musculoskeletal: Denies arthralgias, back pain or myalgias Integumentary Denies rash Neurologic Neurologic: Reports weakness; Denies headache(s) or paresthesias Psychiatric Psychiatric: Reports anxiety and depression; Denies suicidal ideation or suicidal thoughts EXAM <SUE Bedoya - Last Filed: 06/16/23 16:19> Physical Exam Const Vital Signs: 06/16/23 13:16 06/16/23 16:00 Temperature 96.8 F L 98.0 F Temperature Source Temporal Temporal Pulse Rate 106 H 99 Respiratory Rate 16 16 Blood Pressure 135/89 H 134/86 H Blood Pressure Mean 104 102 Pulse Ox 97 96 Oxygen Delivery Method Room Air Room Air Positive well nourished, well developed and no apparent distress General Appearance ED: well developed HEENT Reports normocephalic and head/scalp atraumatic Mouth ED: Yes moist mucous membranes normal Eyes PERRL and EOMs intact bilaterally Neck full ROM and supple Chest Wall inspection of chest normal Resp normal respiratory effort and clear to auscultation bilaterally Cardio regular rate and regular rhythm GI soft to palpation, non-tender, non-distended and no masses Back/Spine normal ROM and normal to inspection Extremity normal to inspection and full ROM Extremity Narrative: No wounds to the bilateral feet Neuro oriented x3, CN's II-XII intact bilaterally, moves all extremities, no focal motor deficits and no sensory deficits noted Sensorium / Orientation: awake and alert Psych mental status grossly normal and thought process normal Psych Narrative: Patient does appear anxious, but she does not have any thoughts of SI, hallucinations, or homicidal thoughts Skin no rashes or lesions noted and no wounds <Dr. Akhil Vo MD - Last Filed: 06/19/23 21:53> Physical Exam Const Vital Signs: 06/16/23 13:16 06/16/23 16:00 Temperature 96.8 F L 98.0 F Temperature Source Temporal Temporal Pulse Rate 106 H 99 Respiratory Rate 16 16 Blood Pressure 135/89 H 134/86 H Blood Pressure Mean 104 102 Pulse Ox 97 96 Oxygen Delivery Method Room Air Room Air MDM <SUE Bedoya - Last Filed: 06/16/23 16:19> [facility] Narrative Medical decision making narrative: Patient presenting today due to multiple vague complaints. She reports that she is concerned that her lower back is caving in on her but is not necessarily in pain. She has history of kyphoplasties and is requesting an MRI to see if she needs another one. She does not have any symptoms of cauda equina, no injury to her back, no imaging is indicated at this time. She does have a depressed affect, no SI or HI. Multiple vague complaints including shortness of breath and weakness. She was given IV fluid, Toradol, and Zofran. Labs obtained and anion gap 18, otherwise labs unremarkable. Chest x-ray obtained and is negative for any acute findings. EKG normal sinus rhythm. I have encouraged her to follow-up with her pain management doctor as well as her PCP. She does have home health aides that are going to come in tomorrow. She will be discharged home in stable condition and is comfortable with plan. I have personally performed a face to face assessment of the patient and have reviewed the SADIE Note. I performed a substantive portion of the visit including all aspects of the following. My [place] findings include: History is remarkable for chronic back pain has gotten worse. She denies bowel bladder dysfunction. No saddle paresthesia anesthesia. Nuys foot drop. Denies buckling her knees going up and down steps. She denies radicular pain. There is no history of trauma. She not had fever, chills night sweats. She had no recent dental procedure or any type of procedure. She also has multiple other vague minimal complaints. She denies nausea, vomiting diarrhea. She does report mild shortness of breath. Exam is patient has a flat affect depressed mood. HEENT exam is unremarkable. Neck is supple. Trachea is midline. Lungs are clear to auscultation. Breath sounds are symmetric. Heart is regular. Rate is normal. There is no murmur, gallop or rub. Abdomen is soft nontender. No palp pulsatile mass abdominal bruit. She does have reproducible low back pain. Straight leg test is negative right and left. Patella and ankle reflex are 1+. EHLs intact. 5/5 motor strength dorsi and plantarflexion of the foot. Normal sensation over L3-S1 dermatome. DP pulses palpable bilaterally. Medical Decision Making because of her numerous complaints will obtain CBC to assess for white count as well as rule out anemia. Basic metabolic panel to assess electrolytes and renal function. Chest x-ray was obtained and was independent reviewed interpreted by me. Other additions or changes: [None] Lab Data Labs: Laboratory Results - last 24 hr 06/16/23 14:33 WBC 6.4 RBC 4.75 Hgb 15.8 H Hct 46.0 MCV 96.8 MCH 33.3 H MCHC 34.3 RDW Std Deviation 47.0 H RDW Coeff of Laxmi 13.2 Plt Count 158 MPV 10.7 Immature Gran % (Auto) 0.900 Neut % (Auto) 67.4 Lymph % (Auto) 18.9 L [place] % (Auto) 11.8 H Eos % (Auto) 0.5 Baso % (Auto) 0.5 Absolute Neuts (auto) 4.3 Absolute Lymphs (auto) 1.20 Nucleated RBC % 0 Sodium 136 Potassium 3.7 Chloride 98 Carbon Dioxide 20.0 L Anion Gap 18 H BUN 15 Creatinine 0.74 Est GFR (MDRD) Af Amer 101 Est GFR (MDRD) Non-Af 84 BUN/Creatinine Ratio 20.2 H Glucose 106 Calcium 8.7 Troponin I High Sens 10 Radiography Diagnostic Testing: Clinical Impression(s) from Imaging Studies Chest X-Ray 06/16/23 15:00 IMPRESSION: Stable mild increased markings at the lung bases suggestive of mild bibasilar linear scarring. Electronically Signed: Pedro Timmons MD at 15:37 EST , EKG Initial EKG: Comments: 94 bpm, normal sinus rhythm, nonspecific ST and T wave abnormality, no ST elevation, reviewed and interpreted by attending ED physician <Dr. Akhil Vo MD - Last Filed: 06/19/23 21:53> [facility] Narrative Medical decision making narrative: I have personally performed a face to face assessment of the patient and have reviewed the SADIE Note. I performed a substantive portion of the visit including all aspects of the following. My [place] findings include: History is remarkable for chronic back pain has gotten worse. She denies bowel bladder dysfunction. No saddle paresthesia anesthesia. Nuys foot drop. Denies buckling her knees going up and down steps. She denies radicular pain. There is no history of trauma. She not had fever, chills night sweats. She had no recent dental procedure or any type of procedure. She also has multiple other vague minimal complaints. She denies nausea, vomiting diarrhea. She does report mild shortness of breath. Exam is patient has a flat affect depressed mood. HEENT exam is unremarkable. Neck is supple. Trachea is midline. Lungs are clear to auscultation. Breath sounds are symmetric. Heart is regular. Rate is normal. There is no murmur, gallop or rub. Abdomen is soft nontender. No palp pulsatile mass abdominal bruit. She does have reproducible low back pain. Straight leg test is negative right and left. Patella and ankle reflex are 1+. EHLs intact. 5/5 motor strength dorsi and plantarflexion of the foot. Normal sensation over L3-S1 dermatome. DP pulses palpable bilaterally. Medical Decision Making because of her numerous complaints will obtain CBC to assess for white count as well as rule out anemia. Basic metabolic panel to assess electrolytes and renal function. Chest x-ray was obtained and was independent reviewed interpreted by me. Other additions or changes: [None] Lab Data Attestation: I reviewed the patient's lab results. Labs: Laboratory Results - last 24 hr 06/16/23 14:33 WBC 6.4 RBC 4.75 Hgb 15.8 H Hct 46.0 MCV 96.8 MCH 33.3 H MCHC 34.3 RDW Std Deviation 47.0 H RDW Coeff of Laxmi 13.2 Plt Count 158 MPV 10.7 Immature Gran % (Auto) 0.900 Neut % (Auto) 67.4 Lymph % (Auto) 18.9 L [place] % (Auto) 11.8 H Eos % (Auto) 0.5 Baso % (Auto) 0.5 Absolute Neuts (auto) 4.3 Absolute Lymphs (auto) 1.20 Nucleated RBC % 0 Sodium 136 Potassium 3.7 Chloride 98 Carbon Dioxide 20.0 L Anion Gap 18 H BUN 15 Creatinine 0.74 Est GFR (MDRD) Af Amer 101 Est GFR (MDRD) Non-Af 84 BUN/Creatinine Ratio 20.2 H Glucose 106 Calcium 8.7 Troponin I High Sens 10 Patient has a mild anion gap acidosis on her blood work. Radiography Chest X-Ray - ED: 2 View and Read by ED Physician (There is no acute process noted. There is slight blunting of the costophrenic angle. Cardiac silhouette and size normal. Patient slightly rotated. Perihilar regions normal) Diagnostic Testing: Clinical Impression(s) from Imaging Studies Chest X-Ray 06/16/23 15:00 IMPRESSION: Stable mild increased markings at the lung bases suggestive of mild bibasilar linear scarring. Electronically Signed: Pedro Timmons MD at 15:37 EST Reading Location ID and State: [facility] / [place] , Service support , Discharge Plan Triage Chief Complaint: Weakness Other Complaint: Back ED Midlevel Provider: Irish Daniels ED Provider: Akhil Vo Dx/Rx/DC Orders Clinical Impression: Shortness of breath, Back pain, Weakness Instructions: ED Back Care Tips, ED Weakness (Uncertain Cause) Prescriptions: No Action acetaminophen [Tylenol Extra Strength] 500 mg tablet 1,000 mg PO Q6H PRN (Reason: pain) ketoconazole 2 % shampoo 1 applic topical 2XW Qty: 120 2RF (DME) Adjustable Underwear Misc See Rx Instructions .ROUTE .MEDSUPPLY Qty: 200 3RF Rx Instructions: As directed (DME) blood pressure monitor Kit See Rx Instructions .MEDSUPPLY Qty: 1 0RF Rx Instructions: Check blood pressure daily for hypertension I10 metoprolol succinate 50 mg tablet extended release 24 hr 50 mg PO BID 90 Days Qty: 180 2RF (DME) cane Device See Rx Instructions .Route Qty: 1 3RF Rx Instructions: As directed clobetasol 0.05 % shampoo 1 applic topical WE (DME) Lift Chair See Rx Instructions .Route .MEDSUPPLY Qty: 1 0RF Rx Instructions: As directed denosumab 60 mg/mL syringe 60 mg subcut [id number] multivitamin Tablet 1 tab PO QAM Qty: 90 3RF tizanidine 4 mg capsule 4 mg PO BID PRN (Reason: muscle spasticity) Qty: 60 0RF meloxicam 15 mg tablet 15 mg PO DAILY PRN (Reason: pain) Qty: 90 0RF ursodiol 250 mg tablet 250 mg PO BID Qty: 60 11RF Zenpep 25,000-79,000- 105,000 unit capsule,delayed release(DR/EC) 1 cap PO TID Qty: 90 3RF Rx Instructions: administer with meals and/or snacks cholecalciferol (vitamin D3) 125 mcg (5,000 unit) capsule See Rx Instructions .ROUTE .COMPLEX Qty: 90 3RF Dose Instruction: TAKE 1 CAPSULE BY MOUTH ONCE DAILY Rx Instructions: TAKE 1 CAPSULE BY MOUTH ONCE DAILY aripiprazole 10 mg tablet See Rx Instructions .ROUTE .COMPLEX Qty: 30 2RF Dose Instruction: TAKE 1 TABLET BY MOUTH ONCE DAILY FOR ANXIETY Rx Instructions: TAKE 1 TABLET BY MOUTH ONCE DAILY FOR ANXIETY buspirone 10 mg tablet See Rx Instructions .ROUTE .COMPLEX Qty: 60 2RF Dose Instruction: TAKE 1 TABLET BY MOUTH 2 TIMES A DAY FOR ANXIETY Rx Instructions: TAKE 1 TABLET BY MOUTH 2 TIMES A DAY FOR ANXIETY Primary Care Provider: Edward Mc Referrals: Edward Mc MD [Primary Care Provider] - 5-7 Days Activity Restrictions/Additional Instructions: Follow-up with pain management and your PCP, return for any worsening of your symptoms. Disposition Disposition: Home, Self Care Discharge Date/Time: 06/16/23 17:00
[2023-06-16 14:44] LABS: Absolute Neutrophil Count 4.3 X10^3/uL (2.0-7.7); Basophil# 0.03 X10^3/uL; Basophil% 0.5 % (0-1); Eosinophil# 0.03 X10^3/uL; Eosinophils% 0.5 % (0-5); Hemoglobin 15.8 g/dL (12.0-15.0); Lymphocyte % 18.9 % (19-41); Mean Corp Hgb Conc 34.3 g/dL (32-36); Mean Corpuscular Hgb 33.3 pg (27.0-32.0); Mean Corpuscular Volume 96.8 fL (81-99); Mean Platelet Vol. 10.7 fl (6.2-12.0); Monocyte# 0.75 X10^3/uL; Monocyte% 11.8 % (0-10); NRBC Flagged by Analyzer 0 % (0-5); Neutrophil # 4.29 X10^3/uL (2.7-7.7); Neutrophil % 67.4 % (47-70); Platelet Count 158 K/mm3 (150-450); RBC Distribution Width CV 13.2 % (11.6-14.6); Red Blood Count 4.75 M/mm3 (4.2-5.4); White Blood Count 6.4 K/mm3 (4.4-11.0)
[2023-06-16 14:55] LABS: Anion Gap 18 (5-15); BUN 15 mg/dL (7-18); BUN/Creat Ratio 20.2 RATIO (10-20); Calcium,Total 8.7 mg/dL (8.5-10.1); Chloride 98 mmol/L (98-107); Creatinine, Serum 0.74 mg/dL (0.55-1.02); EST Glomerular Filtration Rate 84 mL/min (>60); Est Glom Filt Rate - Afr Amer 101 mL/min (>60); Glucose 106 mg/dL (74-106); Potassium 3.7 mmol/L (3.5-5.1); Sodium Level 136 mmol/L (136-145); Troponin-I HS 10 pg/mL (3.0-54.0)
[2023-06-16] MEDS: 0.9% Normal Saline (1000mL) 1,000 ML 999 ML IV (14:56)
--- NOTE | 2023-06-16 15:00 | RAD_ITS ---
STUDY: X-RAY CHEST REASON FOR EXAM: Female, 63 years old. SOB TECHNIQUE: PA and lateral views of the chest. COMPARISON: Comparison is made with prior study dated July 21, 2022. FINDINGS: Stable mild increased markings at the lung bases suggestive of mild linear scarring. There is no demonstrated pleural abnormality. Normal size heart. Normal mediastinum and stacy. Normal visualized pulmonary arteries. There is atherosclerotic calcification of the aortic arch with tortuosity. There are diffuse degenerative changes of the visualized thoracic spine. Prior vertebroplasty of lower dorsal and upper lumbar vertebrae. There is degenerative osteoarthritis of the bilateral shoulders. There is no demonstrated abnormality of the visualized soft tissue structures of the upper abdomen. RAD/Chest PA and Lateral IMPRESSION: Stable mild increased markings at the lung bases suggestive of mild bibasilar linear scarring. Electronically Signed: Pedro Timmons MD at 15:37 EST ,
[2023-06-16] MEDS: Ondansetron 4 MG/2 ML Vial IV (15:14)
[2023-06-16] MEDS: Ketorolac 15 MG/ML Vial IV (15:14)
[2023-06-16 16:00] VITALS: BP 134/86; PULSE 99; RESP 16; TEMP 36.7; O2SAT 96
[2023-06-16 16:58] VITALS: BP 130/80; PULSE 76; RESP 18; TEMP 36.8; O2SAT 97
== END 2023-06-16 17:00 | disposition home or self-care (01) ==
PROVIDERS: Physician Assistant; Emergency Provider Emergency Medicine; PCP Internal Medicine; Visit Provider Emergency Medicine
DX: R53.1 Weakness (principal); R06.02 Shortness of breath; M54.9 Dorsalgia, unspecified; G89.29 Other chronic pain; I10 Essential (primary) hypertension; F32.A Depression, unspecified; F41.9 Anxiety disorder, unspecified; Z79.899 Other long term (current) drug therapy; Z87.891 Personal history of nicotine dependence
CPT/HCPCS: 71046; 80048; 84484; 85025; 93005; 96361; 96374; 96375; 99285; J7030; A4216; J2405

== ENCOUNTER → 2023-06-30 | Outpatient (CLI) | payer MEDICAID, SELFPAY ==
--- NOTE | 2023-06-30 15:35 | RAD_ITS ---
STUDY: X-RAY - LUMBAR SPINE REASON FOR EXAM: Female, 63 years old. Osteoporosis. History of kyphoplasty without relief. TECHNIQUE: 3 view(s) of the lumbar spine were obtained. COMPARISON: February 05, 2021. FINDINGS: Marked osteopenia. Normal lumbar lordosis. No scoliosis. Normal alignment. Stable lymphoplasties of L3 and L5. New lymphoplasties at L1 and L2. Anterior wedge compression deformity of L1, L2, L3 and to a lesser degree L5. Endplate concavities compatible with osteoporosis. Normal intervertebral disc spaces. Phleboliths. RAD/Lumbar Spine 2 or 3 Views IMPRESSION: Marked osteopenia with new lymphoplasties at L1 and L2. Anterior wedge compression deformities unchanged. No complicating features. Electronically Signed: Edilson Mcgarry MD at 9:38 EST ,
--- NOTE | 2023-06-30 15:40 | RAD_ITS ---
INDICATION: AGE RELATED OSTEOPOROSIS EXAMINATION/TECHNIQUE: X-RAY - XR Spine Thoracic 3 Views COMPARISON: Chest x-ray July 21, 2022. FINDINGS: VERTEBRAE: Kyphoplasty L1, L2 and L3. Vertebral body height loss of T11 not appreciably changed compared to June 16, 2023 chest x-ray. T7 and T8 wedge compression fractures with focal kyphosis. There is significant vertebral body height loss at T7. There is moderate height loss of T6, also unchanged. Significant lateral curvature, convex left, upper thoracic spine at T6 level. There is some difficulty determining exact disc levels due to exaggerated kyphosis and lateral curvature resulting in overlying vertebrae. DISCS: Disc spaces are relatively maintained. No significant degenerative endplate changes. INCLUDED CHEST/ABDOMEN: Within normal limits of the exam. Subjective appearance of decreased bone mineral density. RAD/Thoracic Spine 3 Views IMPRESSION: 1. Prior kyphoplasty L1, L2 and L3. 2. Compression fractures T6, T7 and T8 and T11. 3. Exaggerated kyphosis at T7. Significant lateral curvature, convex left, centered at T6 level. Electronically Signed: Sj Charles DO at 0:18 EST ,
== END | disposition home or self-care (01) ==
LOC: RAD 15:31
PROVIDERS: PCP Internal Medicine; Referring Provider Anesthesiology Pain Medicine; Visit Provider Anesthesiology Pain Medicine
DX: M80.08XA Age-related osteoporosis with current pathological fracture, vertebra(e), initial encounter for fracture (principal)
CPT/HCPCS: 72072; 72100

== ENCOUNTER → 2023-09-04 | Outpatient (CLI) | payer MEDICAID, SELFPAY ==
[2023-09-04 10:51] LABS: Absolute Lymphocyte Count 2.18 X10^3/uL (0.83-4.51); Absolute Neutrophil Count 2.9 X10^3/uL (2.0-7.7); Basophil# 0.03 X10^3/uL; Basophil% 0.5 % (0-1); Eosinophil# 0.11 X10^3/uL; Eosinophils% 1.9 % (0-5); Hematocrit 45.6 % (37-47); Hemoglobin 15.5 g/dL (12.0-15.0); Lymphocyte # 2.18 X10^3/ul (0.83-4.51); Mean Corpuscular Hgb 32.1 pg (27.0-32.0); Mean Corpuscular Volume 94.4 fL (81-99); Mean Platelet Vol. 10.5 fl (6.2-12.0); Monocyte# 0.52 X10^3/uL; Monocyte% 9.1 % (0-10); NRBC Flagged by Analyzer 0 % (0-5); Neutrophil # 2.87 X10^3/uL (2.7-7.7); Neutrophil % 50.2 % (47-70); Platelet Count 257 K/mm3 (150-450); RBC Distribution Width CV 13.1 % (11.6-14.6); RBC Distribution Width SD 44.9 fl (35.1-43.9); RET-HE 33.6 pg (30-35); Red Blood Count 4.83 M/mm3 (4.2-5.4); Reticulocyte Count 2.05 % (0.5-1.5); White Blood Count 5.7 K/mm3 (4.4-11.0)
[2023-09-04 11:44] LABS: ALB/GLOB Ratio 0.6 RATIO (0.9-2.4); AST(SGOT) 60 U/L (15-37); Alanine Aminotransfer ALT/SGPT 38 U/L (13-56); Albumin, Serum 3.2 g/dL (3.2-5.0); Alkaline Phosphatase 106 U/L (45-117); Amylase 28 U/L (25-115); Anion Gap 8 (5-15); BUN 10 mg/dL (7-18); BUN/Creat Ratio 14.6 RATIO (10-20); CRP < 2.90 mg/L (0.0-3.0); Calcium,Total 9.8 mg/dL (8.5-10.1); Chloride 106 mmol/L (98-107); Creatinine, Serum 0.68 mg/dL (0.55-1.02); EST Glomerular Filtration Rate 92 mL/min (>60); Est Glom Filt Rate - Afr Amer 111 mL/min (>60); Ferritin 293 ng/mL (8-252); Globulin 5.1 g/dL (2.2-4.2); Glucose 133 mg/dL (74-106); Iron 95 ug/dL (50-170); Lipase 15 U/L (13-75); Protein, Total 8.3 g/dL (6.4-8.2); Sodium Level 136 mmol/L (136-145)
[2023-09-04 11:58] LABS: Erythrocyte Sedimentation Rate 47 mm/hr (0-30)
[2023-09-05 14:09] LABS: Anti-Mitochondrial AB <20.0 Units (0.0-20.0)
[2023-09-05 15:08] LABS: AFP, Tumor Marker 3.7 ng/mL (0.0-9.2); Albumin 3.3 g/dL (2.9-4.4); Alpha-1-Globulins 0.3 g/dL (0.0-0.4); Alpha-2-Globulins 0.6 g/dL (0.4-1.0); Anti-Smooth Muscle ABS 6 Units (0-19); Endomysial Antibody IgA Negative (Negative); Gamma Globulin 2.2 g/dL (0.4-1.8); HEPATITIS B SURFACE AG Negative (Negative); Hep C Antibodies Non Reactive (Non Reactive); Hepatitis A IgM Antibody Negative (Negative); Hepatitis B Core AB IgM Negative (Negative); Immunoglobulin A 712 mg/dL (87-352); Immunoglobulin G 2023 mg/dL (586-1602); Immunoglobulin M 73 mg/dL (26-217); PROEL- TOTAL PROTEIN 7.8 g/dL (6.0-8.5); t-Transglutaminase IgA <2 U/mL (0-3)
== END | disposition home or self-care (01) ==
LOC: LAB 10:19
PROVIDERS: PCP Internal Medicine; Referring Provider Internal Medicine Gastroenterology; Visit Provider Internal Medicine Gastroenterology
DX: K70.10 Alcoholic hepatitis without ascites (principal)
CPT/HCPCS: 36415; 80053; 80074; 82105; 82140; 82150; 82728; 82784; 83036; 83516; 83540; 83690; 84165; 85025; 85045; 85652; 86140; 86255; 86334

== ENCOUNTER → 2023-09-11 | Outpatient (CLI) | payer MEDICAID, SELFPAY ==
--- NOTE | 2023-09-11 08:16 | BD_ITS ---
STUDY: DUAL ENERGY X-RAY ABSORPTIOMETRY / DXA REASON FOR EXAM: Female, 63 years old. osteopetrosis TECHNIQUE: Bone Mineral Density (BMD) measurements of left hip and left forearm were obtained. COMPARISON: Comparison is made with prior examination dated March 21, 2022. FINDINGS: Left Femur Total: g/cm2 (0.685) / T-score (-2.1) / Z-score (-0.9) Left Femoral Neck: g/cm2 (0.574) / T-score (-2.5) / Z-score (-1.0) Left Forearm: g/cm2 (0.489) / T-score (-1.7) / Z-score (-0.1) The T-Scores on the most recent prior examination were: Left Femur Total: which represents a worsening of 4.1%. BD/Dexa Bone Density Study IMPRESSION: The patient is considered osteoporotic as outlined below according to World Douglas Organization (WHO) criteria with a high fracture risk. There has been worsening of bone density since the previous examination. Reference Information: The T-score is the number of standard deviations above or below the standard which is normal for young adults at their peak bone mineral density. The World Health Organization (WHO) interprets the T-scores as follows: Above -1 Normal bone density Between -1 and -2.5 Osteopenia Equal to / or below -2.5 Osteoporosis As a practical clinical guideline, osteopenia may be graded as follows: Mild -1 through -1.5 Moderate -1.6 through -2.0 Severe -2.1 through -2.4 The Z-score is the number of standard deviations above or below age-matched controls. A Z-score of less than -1.5 would be considered abnormal. References: 1. NIH Osteoporosis and Related Bone Diseases www osteo.org 2. International Society for Clinical Densitometry www iscd.org 3. National Osteoporosis Foundation www nof.org Electronically Signed: Pedro Timmons MD at 8:59 EST ,
== END | disposition home or self-care (01) ==
LOC: OPBD 08:07
PROVIDERS: PCP Internal Medicine; Referring Provider Physician Assistant; Visit Provider Physician Assistant
DX: M81.0 Age-related osteoporosis without current pathological fracture (principal)
CPT/HCPCS: 77080

== ENCOUNTER → 2023-10-02 | Outpatient (CLI) | payer MEDICAID, SELFPAY ==
--- NOTE | 2023-10-02 07:12 | BI_ITS ---
MAMMOGRAPHY - BILATERAL SCREENING REASON FOR EXAM: Female, 63 years old. Routine annual screening examination. PERTINENT HISTORY: Non-contributory. TECHNIQUE: Digital bilateral breast mesha (3D mammographic acquisition) in the CC and MLO projections. 2-D mediolateral oblique (MLO) and craniocaudad (CC) views of both breasts were obtained. CAD: Full Field Digital Mammography with Computer Added Detection was performed. COMPARISON: Comparison is made with prior study dated August 21, 2021 and March 03, 2019. FINDINGS: Breast Composition: There are scattered areas of fibroglandular density. There are no dominant masses or suspicious calcifications. Stable bilateral secretory calcifications. No other significant abnormalities are identified. There has been no significant change since the prior study. BI/SCRN MAMM (CAD)W/MESHA BILAT IMPRESSION: Stable bilateral screening mammogram. Yearly follow-up mammogram recommended. (A) ASSESSMENT CATEGORY: BIRADS Category 2: Benign. A letter regarding these results will be sent to the patient by the facility within 30 days. Approximately 10% of breast cancers are not detected by mammography. A normal mammogram should not delay biopsy of a clinically suspicious abnormality. [id number] Electronically Signed: Pedro Timmons MD at 10:39 EDT ,
== END | disposition home or self-care (01) ==
LOC: OPBI 07:12
PROVIDERS: PCP Internal Medicine; Referring Provider Internal Medicine; Visit Provider Internal Medicine
DX: Z12.31 Encounter for screening mammogram for malignant neoplasm of breast (principal)
CPT/HCPCS: 77063; 77067

== ENCOUNTER → 2023-12-29 | Outpatient (CLI) | payer MEDICAID, SELFPAY ==
[2023-12-29 16:50] LABS: Absolute Lymphocyte Count 2.47 X10^3/uL (0.83-4.51); Absolute Neutrophil Count 4.1 X10^3/uL (2.0-7.7); Basophil# 0.05 X10^3/uL; Basophil% 0.7 % (0-1); Eosinophil# 0.09 X10^3/uL; Eosinophils% 1.2 % (0-5); Hematocrit 48.1 % (37-47); Lymphocyte # 2.47 X10^3/ul (0.83-4.51); Lymphocyte % 33.8 % (19-41); Mean Corp Hgb Conc 33.3 g/dL (32-36); Mean Corpuscular Hgb 34.6 pg (27.0-32.0); Mean Corpuscular Volume 103.9 fL (81-99); Mean Platelet Vol. 11.4 fl (6.2-12.0); Monocyte% 8.2 % (0-10); NRBC Flagged by Analyzer 0 % (0-5); Neutrophil # 4.09 X10^3/uL (2.7-7.7); Platelet Count 260 K/mm3 (150-450); RBC Distribution Width CV 13.2 % (11.6-14.6); RBC Distribution Width SD 50.7 fl (35.1-43.9); Red Blood Count 4.63 M/mm3 (4.2-5.4); White Blood Count 7.3 K/mm3 (4.4-11.0)
[2023-12-29 22:01] LABS: ALB/GLOB Ratio 0.5 RATIO (0.9-2.4); AST(SGOT) 169 U/L (15-37); Alanine Aminotransfer ALT/SGPT 71 U/L (13-56); Albumin, Serum 2.8 g/dL (3.2-5.0); Alkaline Phosphatase 175 U/L (45-117); Anion Gap 11 (5-15); BUN 7 mg/dL (7-18); BUN/Creat Ratio 12.4 RATIO (10-20); Calcium,Total 9.2 mg/dL (8.5-10.1); Chloride 100 mmol/L (98-107); Creatinine, Serum 0.56 mg/dL (0.55-1.02); EST Glomerular Filtration Rate 115 mL/min (>60); Est Glom Filt Rate - Afr Amer 139 mL/min (>60); Globulin 5.7 g/dL (2.2-4.2); Glucose 115 mg/dL (74-106); Protein, Total 8.5 g/dL (6.4-8.2); Sodium Level 134 mmol/L (136-145)
== END | disposition home or self-care (01) ==
LOC: BIMLAB 15:25
PROVIDERS: Internal Medicine Gastroenterology; PCP Internal Medicine; Visit Provider Internal Medicine
DX: K70.10 Alcoholic hepatitis without ascites (principal)
CPT/HCPCS: 36415; 80053; 82784; 82785; 85025

== ENCOUNTER → 2024-04-08 | Outpatient (CLI) | payer MEDICARE, MEDICAID, SELFPAY ==
[2024-04-08 11:50] LABS: Ferritin 201 ng/mL (8-252); Iron Binding Capacity,Total 375 ug/dL (250-450); LDH 184 U/L (84-246)
[2024-04-12 02:07] LABS: Beef <0.10 kU/L (Class 0); Chocolate <0.10 kU/L (Class 0); Codfish <0.10 kU/L (Class 0); Corn <0.10 kU/L (Class 0); Egg, Whole <0.10 kU/L (Class 0); Milk (Cow) <0.10 kU/L (Class 0); Mussels <0.10 kU/L (Class 0); Peanut <0.10 kU/L (Class 0); Pork <0.10 kU/L (Class 0); Salmon <0.10 kU/L (Class 0); Shrimp <0.10 kU/L (Class 0); Soybean <0.10 kU/L (Class 0); Tuna <0.10 kU/L (Class 0); Wheat <0.10 kU/L (Class 0)
[2024-04-13 17:07] LABS: Albumin 3.3 g/dL (2.9-4.4); Alpha-1-Globulins 0.3 g/dL (0.0-0.4); Alpha-2-Globulins 0.5 g/dL (0.4-1.0); Deamidated Gliadin IgA 9 units (0-19); Deamidated Gliadin IgG 2 units (0-19); Endomysial Antibody IgA Negative (Negative); Erythropoietin 13.8 mIU/mL (2.6-18.5); Gamma Globulin 2.3 g/dL (0.4-1.8); Gastrin, Serum 42 pg/mL (0-115); Immunoglobulin A 1123 mg/dL (87-352); Immunoglobulin G 2313 mg/dL (586-1602); Immunoglobulin M 92 mg/dL (26-217); PROEL- TOTAL PROTEIN 7.9 g/dL (6.0-8.5); t-Transglutaminase IgA <2 U/mL (0-3)
== END | disposition home or self-care (01) ==
LOC: LAB 10:15
PROVIDERS: PCP Internal Medicine; Referring Provider Internal Medicine Gastroenterology; Visit Provider Internal Medicine Gastroenterology
DX: K70.10 Alcoholic hepatitis without ascites (principal); D75.1 Secondary polycythemia; D64.9 Anemia, unspecified
CPT/HCPCS: 36415; 81270; 82668; 82728; 82784; 82941; 83516; 83550; 83615; 84165; 86003; 86005; 86255; 86334

== ENCOUNTER 2024-04-20 09:00 | Outpatient (CLI) | payer MEDICARE, MEDICAID, SELFPAY ==
[2024-04-20 09:17] VITALS: BP 107/73; PULSE 84; RESP 16; TEMP 36.6; O2SAT 93; BMI 30.2
[2024-04-20] MEDS: Romosozumab-AQQG 210 MG/2.34 ML Syringe SC (09:21)
== END 2024-04-20 23:59 | disposition home or self-care (01) ==
PROVIDERS: PCP Internal Medicine; Referring Provider Internal Medicine Endocrinology, Diabetes & Metabolism; Visit Provider Internal Medicine Endocrinology, Diabetes & Metabolism
DX: M81.0 Age-related osteoporosis without current pathological fracture (principal)
CPT/HCPCS: 96372; J3111

== ENCOUNTER → 2024-05-06 | Outpatient (CLI) | payer MEDICARE, MEDICAID, SELFPAY ==
--- NOTE | 2024-05-06 11:50 | RAD_ITS ---
INDICATION: DDD/LUMBAR SPONDYLOSIS EXAMINATION/TECHNIQUE: X-RAY - XR Spine Lumbar 2 or 3 Views COMPARISON: Prior study dated: 08/20/2023 FINDINGS: VERTEBRAE: Vertebroplasty at multiple levels and lower thoracic and lumbar spine stable since the previous exam. No new fracture is seen. No spondylolisthesis. Preservation of the normal lumbar lordosis. No substantial scoliosis. DISCS: Disc spaces are maintained. INCLUDED ABDOMEN: Included bowel gas pattern is non-obstructive. RAD/Lumbar Spine 2 or 3 Views IMPRESSION: No significant change since the previous examination. Electronically Signed: Jairo Gimenez MD at 15:59 EDT ,
== END | disposition home or self-care (01) ==
LOC: RAD 11:45
PROVIDERS: PCP Internal Medicine; Referring Provider Anesthesiology Pain Medicine; Visit Provider Anesthesiology Pain Medicine
DX: M43.06 Spondylolysis, lumbar region (principal); M51.369 Other intervertebral disc degeneration, lumbar region without mention of lumbar back pain or lower extremity pain
CPT/HCPCS: 72100

== ENCOUNTER → 2024-05-19 | Outpatient (CLI) | payer MEDICARE, MEDICAID, SELFPAY | END | disposition home or self-care (01) | PROVIDERS: PCP Internal Medicine; Referring Provider Internal Medicine Gastroenterology; Visit Provider Internal Medicine Gastroenterology | DX: K70.10 Alcoholic hepatitis without ascites (principal) | CPT/HCPCS: 78264; A9541 ==

== ENCOUNTER 2024-05-25 07:41 | Outpatient (CLI) | payer MEDICARE, MEDICAID, SELFPAY ==
[2024-05-25 07:51] VITALS: BP 110/62; PULSE 98; RESP 16; TEMP 36.4; O2SAT 97; BMI 30.2
[2024-05-25] MEDS: Romosozumab-AQQG 210 MG/2.34 ML Syringe SC (08:12)
== END 2024-05-25 23:59 | disposition home or self-care (01) ==
LOC: MEDOUTP 07:42
PROVIDERS: PCP Internal Medicine; Referring Provider Internal Medicine Endocrinology, Diabetes & Metabolism; Visit Provider Internal Medicine Endocrinology, Diabetes & Metabolism
DX: M81.0 Age-related osteoporosis without current pathological fracture (principal)
CPT/HCPCS: 96372; J3111

== ENCOUNTER 2024-06-08 10:11 | Inpatient (IN) | payer MEDICARE, MEDICAID, SELFPAY ==
[2024-06-08] VITALS (14 sets, daily range): BP systolic 78–110; BP diastolic 39–74; PULSE 85–108; RESP 13–22; TEMP 36.3–37.2; O2SAT 93–100; BMI 30.2; BMI 31.3
[2024-06-08] MEDS: 0.9% Normal Saline (1000mL) 1,000 ML 999 ML IV ×2 (10:45→16:48)
[2024-06-08 11:04] LABS: Absolute Lymphocyte Count 2.72 X10^3/uL (0.83-4.51); Absolute Neutrophil Count 8.4 X10^3/uL (2.0-7.7); Basophil# 0.04 X10^3/uL; Basophil% 0.3 % (0-1); Eosinophil# 0.04 X10^3/uL; Eosinophils% 0.3 % (0-5); Hematocrit 38.3 % (37-47); Hemoglobin 13.9 g/dL (12.0-15.0); Lymphocyte # 2.72 X10^3/ul (0.83-4.51); Lymphocyte % 22.6 % (19-41); Mean Corp Hgb Conc 36.3 g/dL (32-36); Mean Corpuscular Hgb 36.5 pg (27.0-32.0); Mean Corpuscular Volume 100.5 fL (81-99); Mean Platelet Vol. 11.7 fl (6.2-12.0); Monocyte# 0.73 X10^3/uL; Monocyte% 6.1 % (0-10); NRBC Flagged by Analyzer 0 % (0-5); Neutrophil # 8.39 X10^3/uL (2.7-7.7); Platelet Count 215 K/mm3 (150-450); RBC Distribution Width CV 15.4 % (11.6-14.6); RBC Distribution Width SD 56.2 fl (35.1-43.9); Red Blood Count 3.81 M/mm3 (4.2-5.4)
[2024-06-08 11:17] LABS: ALB/GLOB Ratio 0.3 RATIO (0.9-2.4); AST(SGOT) 250 U/L (15-37); Alanine Aminotransfer ALT/SGPT 83 U/L (13-56); Albumin, Serum 1.9 g/dL (3.2-5.0); Alkaline Phosphatase 249 U/L (45-117); Anion Gap 14 (5-15); BUN 12 mg/dL (7-18); BUN/Creat Ratio 16.7 RATIO (10-20); Calcium,Total 8.5 mg/dL (8.5-10.1); Chloride 93 mmol/L (98-107); Creatinine, Serum 0.72 mg/dL (0.55-1.02); EST Glomerular Filtration Rate 87 mL/min (>60); Est Glom Filt Rate - Afr Amer 105 mL/min (>60); Globulin 5.9 g/dL (2.2-4.2); Glucose 97 mg/dL (74-106); Lipase 43 U/L (13-75); Potassium 4.9 mmol/L (3.5-5.1); Protein, Total 7.8 g/dL (6.4-8.2); Sodium Level 127 mmol/L (136-145); Troponin-I HS 10 pg/mL (3.0-54.0)
[2024-06-08] MEDS: Thiamine Hydrochloride 100 MG in 0.9% Normal Saline (50mL Bag) 50 ML 200 MG IV (11:28)
[2024-06-08 11:38] LABS: International Normalized Ratio 1.6; Prothrombin Time (Protime)PT. 19.2 SECONDS (11.7-14.9)
[2024-06-08 11:39] LABS: Partial Thromboplast Time 32.1 Seconds (24.1-36.2)
[2024-06-08 11:50] LABS: BNP,B-Type NATRIURETIC PEPTIDE 270.3 pg/mL (0-100)
[2024-06-08 12:03] LABS: Lactic Acid 2.8 mmol/L (0.4-1.9)
[2024-06-08 12:12] LABS: Color, Urine Amber (Yellow); Glucose, Dipstick Normal (Normal); Ketone-Dipstick 15 mg/dl (Negative); Leukocyte Esterase-Dipstick 500 /ul (Negative); Mucous, Urine 0 SEEN /hpf (<or=2+); Nitrite-Dipstick Positive (Negative); Occult Blood-Urine 150 /ul (Negative); Protein-Dipstick 30 mg/dl (Negative); Urine Clarity Cloudy (Clear); Urine Urobilinogen 8 mg/dl (Normal)
[2024-06-08 12:14] LABS: Urine Bilirubin Dipstick 6 mg/dL (Negative)
[2024-06-08 12:21] LABS: Bacteria 4+ /hpf (None Seen); Red Blood Cells-Urine 0-5 SEEN /hpf (0-5); Squamous Epithelial Cells - UA 0 SEEN /hpf (5-10); White Blood Cells 25-50 SEEN /hpf (0-5)
[2024-06-08] MEDS: Piperacil/Tazobactam 4.5 GM in 0.9% Normal Saline (100mL MB+) 100 ML IV (12:40)
[2024-06-08 15:25] LABS: Reflex Lactate? Y
[2024-06-08] MEDS: 0.9% Normal Saline (500mL Bag) 500 ML 999 ML IV (16:11)
[2024-06-08 16:45] LABS: Lactic Acid 1.3 mmol/L (0.4-1.9)
[2024-06-08 16:46] LABS: Bilirubin, Direct 3.96 mg/dL (0.00-0.30)
[2024-06-08] MEDS: LORazepam 1 MG Tablet 0.5 MG PO ×2 (17:18→20:19)
[2024-06-08 17:47] LABS: Hepatitis B Surface Antibody Reactive; Hepatitis B Surface Antigen Non-Reactive (Nonreactive); Hepatitis C Antibody Non-Reactive (Nonreactive)
[2024-06-08] MEDS: 0.9% Normal Saline (1000mL) 1,000 ML 125 ML IV (17:56)
[2024-06-08] MEDS: Ceftriaxone 1 GM/50 ML BAG IV (17:57)
[2024-06-08] MEDS: Albumin Human 25% (100 mL) 25 GM/100 ML BAG IV (18:58)
[2024-06-08] MEDS: Ursodiol 250 MG Tablet PO (20:08)
[2024-06-08] MEDS: busPIRone 5 MG Tablet 10 MG PO (20:09)
[2024-06-08] MEDS: Octreotide 0.1 MG/ML ML SC (20:19)
[2024-06-08] MEDS: 0.9% Saline Lock 10 ML Syringe IV ×2 (20:22→21:03)
[2024-06-08] MEDS: DEXTROSE 5% IV ×2 (21:03→22:35)
[2024-06-08] MEDS: ACETYLCYSTEINE IV ×2 (21:03→22:35)
[2024-06-08] MEDS: WATER IV ×2 (21:03→22:35)
[2024-06-08] MEDS: hydrOXYzine PAM 25 MG Capsule 50 MG PO (22:47)
[2024-06-09] VITALS (14 sets, daily range): BP systolic 91–123; BP diastolic 65–91; PULSE 75–89; RESP 16–26; TEMP 36–36.9; O2SAT 81–96; BMI 31.3
[2024-06-09] MEDS: Albumin Human 25% (50 mL) 12.5 GM/50 ML IV.SOLN IV (00:43)
[2024-06-09] MEDS: LORazepam 1 MG Tablet 0.5 MG PO ×5 (01:37→21:07)
[2024-06-09] MEDS: oxyCODONE 5 MG Tablet 7.5 MG PO (01:41)
[2024-06-09] MEDS: Octreotide 0.1 MG/ML ML SC ×3 (05:18→21:10)
[2024-06-09 06:07] LABS: Absolute Lymphocyte Count 0.91 X10^3/uL (0.83-4.51); Absolute Neutrophil Count 4.4 X10^3/uL (2.0-7.7); Basophil# 0.01 X10^3/uL; Basophil% 0.2 % (0-1); Hematocrit 31.4 % (37-47); Lymphocyte # 0.91 X10^3/ul (0.83-4.51); Lymphocyte % 16.4 % (19-41); Mean Corpuscular Hgb 36.2 pg (27.0-32.0); Mean Corpuscular Volume 103.3 fL (81-99); Mean Platelet Vol. 11.4 fl (6.2-12.0); Monocyte# 0.21 X10^3/uL; Monocyte% 3.8 % (0-10); NRBC Flagged by Analyzer 0 % (0-5); Neutrophil # 4.39 X10^3/uL (2.7-7.7); Neutrophil % 78.9 % (47-70); Platelet Count 129 K/mm3 (150-450); RBC Distribution Width CV 15.7 % (11.6-14.6); RBC Distribution Width SD 58.5 fl (35.1-43.9); Red Blood Count 3.04 M/mm3 (4.2-5.4); White Blood Count 5.6 K/mm3 (4.4-11.0)
[2024-06-09] MEDS: 0.9% Normal Saline (1000mL) 1,000 ML 125 ML IV (06:12)
[2024-06-09 06:53] LABS: ALB/GLOB Ratio 0.5 RATIO (0.9-2.4); AST(SGOT) 170 U/L (15-37); Alanine Aminotransfer ALT/SGPT 66 U/L (13-56); Albumin, Serum 2.2 g/dL (3.2-5.0); Alkaline Phosphatase 159 U/L (45-117); Anion Gap 12 (5-15); BUN 10 mg/dL (7-18); BUN/Creat Ratio 16.4 RATIO (10-20); Calcium,Total 7.7 mg/dL (8.5-10.1); Chloride 99 mmol/L (98-107); Creatinine, Serum 0.61 mg/dL (0.55-1.02); EST Glomerular Filtration Rate 105 mL/min (>60); Est Glom Filt Rate - Afr Amer 127 mL/min (>60); Estimated Creatinine Clearance 67.67 ml/min; Globulin 4.6 g/dL (2.2-4.2); Glucose 205 mg/dL (74-106); Potassium 3.9 mmol/L (3.5-5.1); Protein, Total 6.8 g/dL (6.4-8.2); Sodium Level 131 mmol/L (136-145)
[2024-06-09 06:57] LABS: AST(SGOT) 171 U/L (15-37); Alanine Aminotransfer ALT/SGPT 66 U/L (13-56); Albumin, Serum 2.2 g/dL (3.2-5.0); Alkaline Phosphatase 158 U/L (45-117); Bilirubin, Direct 4.19 mg/dL (0.00-0.30); Globulin 4.5 g/dL (2.2-4.2); Protein, Total 6.7 g/dL (6.4-8.2)
[2024-06-09 07:10] LABS: International Normalized Ratio 2.5; Prothrombin Time (Protime)PT. 26.4 SECONDS (11.7-14.9)
[2024-06-09 07:11] LABS: Partial Thromboplast Time 35.9 Seconds (24.1-36.2)
[2024-06-09] MEDS: Ceftriaxone 1 GM/50 ML BAG IV (09:24)
[2024-06-09] MEDS: Menthol/Lanolin/Calamine/Znox 113 GM Tube 1 APPLIC TOPICAL ×2 (09:26→21:08)
[2024-06-09] MEDS: Nystatin Powder 15gm Bottle 1 APPLIC TOPICAL ×2 (09:27→21:08)
[2024-06-09] MEDS: busPIRone 5 MG Tablet 10 MG PO (21:07)
[2024-06-09] MEDS: Ursodiol 250 MG Tablet PO (21:08)
[2024-06-10] VITALS (16 sets, daily range): BP systolic 89–125; BP diastolic 58–85; PULSE 65–108; RESP 17–32; TEMP 36.4–36.8; O2SAT 91–96
[2024-06-10] MEDS: LORazepam 1 MG Tablet 0.5 MG PO ×6 (01:04→20:47)
[2024-06-10] MEDS: Octreotide 0.1 MG/ML ML SC ×3 (05:36→20:54)
[2024-06-10 06:17] LABS: Absolute Lymphocyte Count 0.82 X10^3/uL (0.83-4.51); Absolute Neutrophil Count 5.7 X10^3/uL (2.0-7.7); Basophil# 0.01 X10^3/uL; Basophil% 0.1 % (0-1); Hematocrit 31.4 % (37-47); Lymphocyte # 0.82 X10^3/ul (0.83-4.51); Lymphocyte % 11.5 % (19-41); Mean Corpuscular Hgb 36.1 pg (27.0-32.0); Mean Platelet Vol. 11.6 fl (6.2-12.0); Monocyte% 8.4 % (0-10); NRBC Flagged by Analyzer 0 % (0-5); Neutrophil # 5.68 X10^3/uL (2.7-7.7); Neutrophil % 79.4 % (47-70); Platelet Count 115 K/mm3 (150-450); RBC Distribution Width CV 15.9 % (11.6-14.6); RBC Distribution Width SD 59.4 fl (35.1-43.9); Red Blood Count 3.05 M/mm3 (4.2-5.4); White Blood Count 7.2 K/mm3 (4.4-11.0)
[2024-06-10 07:25] LABS: ALB/GLOB Ratio 0.5 RATIO (0.9-2.4); AST(SGOT) 200 U/L (15-37); Alanine Aminotransfer ALT/SGPT 76 U/L (13-56); Albumin, Serum 2.2 g/dL (3.2-5.0); Alkaline Phosphatase 164 U/L (45-117); Anion Gap 7 (5-15); BUN 7 mg/dL (7-18); BUN/Creat Ratio 12.9 RATIO (10-20); Chloride 104 mmol/L (98-107); Creatinine, Serum 0.54 mg/dL (0.55-1.02); EST Glomerular Filtration Rate 120 mL/min (>60); Est Glom Filt Rate - Afr Amer 145 mL/min (>60); Estimated Creatinine Clearance 67.67 ml/min; Globulin 4.5 g/dL (2.2-4.2); Glucose 155 mg/dL (74-106); Potassium 3.5 mmol/L (3.5-5.1); Protein, Total 6.7 g/dL (6.4-8.2); Sodium Level 135 mmol/L (136-145)
[2024-06-10] MEDS: Cholecalciferol (VIT D3) 25 MCG TABLET (1,000 UNITS) PO (09:09)
[2024-06-10] MEDS: busPIRone 5 MG Tablet 10 MG PO ×2 (09:09→20:48)
[2024-06-10] MEDS: Menthol/Lanolin/Calamine/Znox 113 GM Tube 1 APPLIC TOPICAL ×2 (09:10→20:48)
[2024-06-10] MEDS: Thiamine Hydrochloride 100 MG Tablet PO (09:10)
[2024-06-10] MEDS: Folic Acid 1 MG Tablet PO (09:10)
[2024-06-10] MEDS: Ursodiol 250 MG Tablet PO ×2 (09:10→20:49)
[2024-06-10] MEDS: Midodrine HCl 5 MG Tablet 10 MG PO ×3 (09:10→16:15)
[2024-06-10] MEDS: Nystatin Powder 15gm Bottle 1 APPLIC TOPICAL ×2 (09:10→20:48)
[2024-06-10] MEDS: ARIPiprazole 10 MG Tablet PO (09:10)
[2024-06-10] MEDS: Ceftriaxone 1 GM/50 ML BAG IV (10:19)
[2024-06-10 12:40] LABS: International Normalized Ratio 2.2; Prothrombin Time (Protime)PT. 24.6 SECONDS (11.7-14.9)
[2024-06-11] VITALS (12 sets, daily range): BP systolic 85–112; BP diastolic 56–83; PULSE 63–103; RESP 16–31; TEMP 36–36.7; O2SAT 92–97
[2024-06-11] MEDS: LORazepam 1 MG Tablet 0.5 MG PO ×4 (00:37→18:28)
[2024-06-11 05:51] LABS: Absolute Lymphocyte Count 0.85 X10^3/uL (0.83-4.51); Absolute Neutrophil Count 5.1 X10^3/uL (2.0-7.7); Basophil# 0.01 X10^3/uL; Basophil% 0.2 % (0-1); Hematocrit 32.7 % (37-47); Hemoglobin 11.1 g/dL (12.0-15.0); Lymphocyte # 0.85 X10^3/ul (0.83-4.51); Mean Corp Hgb Conc 33.9 g/dL (32-36); Mean Corpuscular Hgb 35.7 pg (27.0-32.0); Mean Corpuscular Volume 105.1 fL (81-99); Mean Platelet Vol. 11.1 fl (6.2-12.0); Monocyte# 0.58 X10^3/uL; Monocyte% 8.8 % (0-10); NRBC Flagged by Analyzer 0 % (0-5); Neutrophil # 5.08 X10^3/uL (2.7-7.7); Neutrophil % 77.4 % (47-70); Platelet Count 111 K/mm3 (150-450); RBC Distribution Width CV 16.4 % (11.6-14.6); RBC Distribution Width SD 62.8 fl (35.1-43.9); Red Blood Count 3.11 M/mm3 (4.2-5.4); White Blood Count 6.6 K/mm3 (4.4-11.0)
[2024-06-11 06:17] LABS: ALB/GLOB Ratio 0.5 RATIO (0.9-2.4); AST(SGOT) 200 U/L (15-37); Alanine Aminotransfer ALT/SGPT 86 U/L (13-56); Alkaline Phosphatase 154 U/L (45-117); Anion Gap 7 (5-15); BUN 7 mg/dL (7-18); BUN/Creat Ratio 15.3 RATIO (10-20); Calcium,Total 8.2 mg/dL (8.5-10.1); Chloride 104 mmol/L (98-107); Creatinine, Serum 0.46 mg/dL (0.55-1.02); EST Glomerular Filtration Rate 145 mL/min (>60); Est Glom Filt Rate - Afr Amer 176 mL/min (>60); Estimated Creatinine Clearance 67.67 ml/min; Globulin 4.2 g/dL (2.2-4.2); Glucose 135 mg/dL (74-106); Potassium 3.8 mmol/L (3.5-5.1); Protein, Total 6.2 g/dL (6.4-8.2); Sodium Level 138 mmol/L (136-145)
[2024-06-11] MEDS: Octreotide 0.1 MG/ML ML SC ×3 (06:39→21:16)
[2024-06-11] MEDS: Ursodiol 250 MG Tablet PO ×2 (09:06→21:16)
[2024-06-11] MEDS: Folic Acid 1 MG Tablet PO (09:06)
[2024-06-11] MEDS: Cholecalciferol (VIT D3) 25 MCG TABLET (1,000 UNITS) PO (09:06)
[2024-06-11] MEDS: Midodrine HCl 5 MG Tablet 10 MG PO ×3 (09:06→18:29)
[2024-06-11] MEDS: Thiamine Hydrochloride 100 MG Tablet PO (09:07)
[2024-06-11] MEDS: Menthol/Lanolin/Calamine/Znox 113 GM Tube 1 APPLIC TOPICAL ×2 (09:07→21:16)
[2024-06-11] MEDS: ARIPiprazole 10 MG Tablet PO (09:07)
[2024-06-11] MEDS: busPIRone 5 MG Tablet 10 MG PO ×2 (09:07→21:16)
[2024-06-11] MEDS: Nystatin Powder 15gm Bottle 1 APPLIC TOPICAL ×2 (09:08→21:16)
[2024-06-11] MEDS: Ceftriaxone 1 GM/50 ML BAG IV (09:08)
[2024-06-11] MEDS: Furosemide 40 MG Tablet PO (15:20)
[2024-06-12] VITALS (20 sets, daily range): BP systolic 85–119; BP diastolic 57–92; PULSE 64–137; RESP 12–33; TEMP 36.3–36.7; O2SAT 92–100
[2024-06-12] MEDS: LORazepam 1 MG Tablet 0.5 MG PO ×3 (01:32→14:12)
[2024-06-12] MEDS: Octreotide 0.1 MG/ML ML SC ×3 (05:54→20:13)
[2024-06-12] MEDS: 0.9% Saline Lock 10 ML Syringe IV (05:55)
[2024-06-12 06:46] LABS: Absolute Lymphocyte Count 0.78 X10^3/uL (0.83-4.51); Absolute Neutrophil Count 4.9 X10^3/uL (2.0-7.7); Basophil# 0.01 X10^3/uL; Basophil% 0.2 % (0-1); Eosinophil# 0.01 X10^3/uL; Eosinophils% 0.2 % (0-5); Hematocrit 34.5 % (37-47); Hemoglobin 12.1 g/dL (12.0-15.0); Lymphocyte # 0.78 X10^3/ul (0.83-4.51); Lymphocyte % 12.2 % (19-41); Mean Corp Hgb Conc 35.1 g/dL (32-36); Mean Corpuscular Hgb 36.3 pg (27.0-32.0); Mean Corpuscular Volume 103.6 fL (81-99); Mean Platelet Vol. 11.6 fl (6.2-12.0); Monocyte# 0.63 X10^3/uL; Monocyte% 9.9 % (0-10); NRBC Flagged by Analyzer 0.3 % (0-5); Neutrophil # 4.86 X10^3/uL (2.7-7.7); Neutrophil % 76.2 % (47-70); Platelet Count 121 K/mm3 (150-450); RBC Distribution Width CV 16.3 % (11.6-14.6); RBC Distribution Width SD 61.1 fl (35.1-43.9); Red Blood Count 3.33 M/mm3 (4.2-5.4); White Blood Count 6.4 K/mm3 (4.4-11.0)
[2024-06-12 07:24] LABS: ALB/GLOB Ratio 0.5 RATIO (0.9-2.4); AST(SGOT) 191 U/L (15-37); Alanine Aminotransfer ALT/SGPT 91 U/L (13-56); Alkaline Phosphatase 162 U/L (45-117); Anion Gap 5 (5-15); BUN 8 mg/dL (7-18); Calcium,Total 8.1 mg/dL (8.5-10.1); Chloride 103 mmol/L (98-107); Creatinine, Serum 0.53 mg/dL (0.55-1.02); EST Glomerular Filtration Rate 122 mL/min (>60); Est Glom Filt Rate - Afr Amer 148 mL/min (>60); Estimated Creatinine Clearance 67.67 ml/min; Globulin 4.4 g/dL (2.2-4.2); Glucose 132 mg/dL (74-106); Potassium 3.4 mmol/L (3.5-5.1); Protein, Total 6.4 g/dL (6.4-8.2); Sodium Level 140 mmol/L (136-145)
[2024-06-12] MEDS: Ursodiol 250 MG Tablet PO ×2 (08:11→20:14)
[2024-06-12] MEDS: busPIRone 5 MG Tablet 10 MG PO ×2 (08:11→20:14)
[2024-06-12] MEDS: Folic Acid 1 MG Tablet PO (08:11)
[2024-06-12] MEDS: Cholecalciferol (VIT D3) 25 MCG TABLET (1,000 UNITS) PO (08:11)
[2024-06-12] MEDS: Midodrine HCl 5 MG Tablet 10 MG PO ×3 (08:11→18:36)
[2024-06-12] MEDS: Furosemide 40 MG Tablet PO (08:11)
[2024-06-12] MEDS: ARIPiprazole 10 MG Tablet PO (08:11)
[2024-06-12] MEDS: Thiamine Hydrochloride 100 MG Tablet PO (08:11)
[2024-06-12] MEDS: Menthol/Lanolin/Calamine/Znox 113 GM Tube 1 APPLIC TOPICAL ×2 (08:12→19:42)
[2024-06-12] MEDS: Nystatin Powder 15gm Bottle 1 APPLIC TOPICAL ×2 (08:12→19:42)
[2024-06-12] MEDS: Potassium Chloride Oral Tablet 20 MEQ 40 MEQ PO (08:20)
[2024-06-12 10:09] LABS: International Normalized Ratio 2.4; Prothrombin Time (Protime)PT. 25.8 SECONDS (11.7-14.9)
[2024-06-12] MEDS: Furosemide 40 MG/4 ML Vial IV (10:54)
[2024-06-12] MEDS: Ceftriaxone 1 GM/50 ML BAG IV (10:54)
[2024-06-12] MEDS: Metoprolol(XL)Succ 25 MG Tablet PO ×2 (14:13→22:19)
[2024-06-12] MEDS: Piperacil/Tazobactam 3.375 GM in 0.9% Normal Saline (50mL MB+) 50 ML IV ×2 (14:51→20:13)
[2024-06-12] MEDS: dilTIAZem 25 MG/5 ML Vial 20 MG IV BOLUS (16:26)
[2024-06-12 16:34] LABS: Allen Test Positive; Base Excess 8 mmol/L (-2 to +2); Bicarbonate 29.9 mmol/L (22-26); Blood Gas Specimen Type ART; Mode Not entered; O2 Delivery Device Cannula; PO2 71 mmHG (75-100); SITE L Radial; SO2 96 % (95-99); Total Carbon Dioxide 31 mmol/L; pH 7.55 (7.35-7.45)
[2024-06-12 19:36] LABS: Allen Test Positive; Base Excess 13 mmol/L (-2 to +2); Bicarbonate 35.4 mmol/L (22-26); Blood Gas Specimen Type ART; Mode Not entered; O2 Delivery Device BiPAP; PO2 89 mmHG (75-100); RR 12; SITE L Radial; SO2 98 % (95-99); Total Carbon Dioxide 37 mmol/L; pCO2 39.2 mmHg (35-45); pH 7.56 (7.35-7.45)
[2024-06-13] VITALS (12 sets, daily range): BP systolic 80–106; BP diastolic 58–76; PULSE 65–86; RESP 16–24; TEMP 36.3–36.6; O2SAT 93–96
[2024-06-13] MEDS: Octreotide 0.1 MG/ML ML SC ×3 (05:28→21:48)
[2024-06-13] MEDS: Piperacil/Tazobactam 3.375 GM in 0.9% Normal Saline (50mL MB+) 50 ML IV ×3 (05:28→21:44)
[2024-06-13 07:03] LABS: Absolute Lymphocyte Count 1.73 X10^3/uL (0.83-4.51); Absolute Neutrophil Count 4.8 X10^3/uL (2.0-7.7); Basophil# 0.01 X10^3/uL; Basophil% 0.1 % (0-1); Eosinophil# 0.28 X10^3/uL; Eosinophils% 3.7 % (0-5); Hematocrit 36.8 % (37-47); Hemoglobin 12.3 g/dL (12.0-15.0); Lymphocyte # 1.73 X10^3/ul (0.83-4.51); Mean Corp Hgb Conc 33.4 g/dL (32-36); Mean Corpuscular Hgb 35.5 pg (27.0-32.0); Mean Corpuscular Volume 106.4 fL (81-99); Mean Platelet Vol. 11.7 fl (6.2-12.0); Monocyte# 0.61 X10^3/uL; Monocyte% 8.1 % (0-10); NRBC Flagged by Analyzer 0.3 % (0-5); Neutrophil # 4.82 X10^3/uL (2.7-7.7); POSITIVE MORPHOLOGY YES; Platelet Count 125 K/mm3 (150-450); RBC Distribution Width CV 17.2 % (11.6-14.6); RBC Distribution Width SD 66.4 fl (35.1-43.9); Red Blood Count 3.46 M/mm3 (4.2-5.4); White Blood Count 7.5 K/mm3 (4.4-11.0)
[2024-06-13 07:54] LABS: Differential Indicated SCAN CRITERIA MET
[2024-06-13 08:09] LABS: ALB/GLOB Ratio 0.4 RATIO (0.9-2.4); AST(SGOT) 200 U/L (15-37); Alanine Aminotransfer ALT/SGPT 93 U/L (13-56); Albumin, Serum 1.9 g/dL (3.2-5.0); Alkaline Phosphatase 156 U/L (45-117); Anion Gap 7 (5-15); BUN 11 mg/dL (7-18); BUN/Creat Ratio 16.9 RATIO (10-20); Calcium,Total 8.3 mg/dL (8.5-10.1); Chloride 100 mmol/L (98-107); Creatinine, Serum 0.65 mg/dL (0.55-1.02); EST Glomerular Filtration Rate 97 mL/min (>60); Est Glom Filt Rate - Afr Amer 118 mL/min (>60); Estimated Creatinine Clearance 67.67 ml/min; Globulin 4.6 g/dL (2.2-4.2); Glucose 89 mg/dL (74-106); Potassium 3.8 mmol/L (3.5-5.1); Protein, Total 6.5 g/dL (6.4-8.2); Sodium Level 141 mmol/L (136-145)
[2024-06-13 08:20] LABS: Differential Comment SCANNED; Polychromasia 1+; Target Cells RARE
[2024-06-13] MEDS: Metoprolol(XL)Succ 25 MG Tablet PO (08:25)
[2024-06-13] MEDS: Cholecalciferol (VIT D3) 25 MCG TABLET (1,000 UNITS) PO (08:25)
[2024-06-13] MEDS: Midodrine HCl 5 MG Tablet 10 MG PO ×3 (08:25→16:56)
[2024-06-13] MEDS: Folic Acid 1 MG Tablet PO (08:25)
[2024-06-13] MEDS: busPIRone 5 MG Tablet 10 MG PO ×2 (08:26→21:37)
[2024-06-13] MEDS: Furosemide 40 MG Tablet PO (08:26)
[2024-06-13] MEDS: Thiamine Hydrochloride 100 MG Tablet PO (08:27)
[2024-06-13] MEDS: Ursodiol 250 MG Tablet PO ×2 (08:27→21:37)
[2024-06-13] MEDS: ARIPiprazole 10 MG Tablet PO (08:27)
[2024-06-13] MEDS: Menthol/Lanolin/Calamine/Znox 113 GM Tube 1 APPLIC TOPICAL ×2 (08:28→21:44)
[2024-06-13] MEDS: Nystatin Powder 15gm Bottle 1 APPLIC TOPICAL ×2 (08:28→21:44)
[2024-06-13 09:58] LABS: Ammonia < 10.0 umol/L (11-32)
[2024-06-13 11:37] LABS: Thyroid Stim Hormone (TSH) 0.207 uIU/mL (0.358-3.740)
[2024-06-13] MEDS: Azithromycin 250 MG Tablet 500 MG PO (12:10)
[2024-06-14] VITALS (22 sets, daily range): BP systolic 69–96; BP diastolic 48–74; PULSE 71–88; RESP 18–25; TEMP 35.9–36.7; O2SAT 92–96
[2024-06-14 06:04] LABS: Absolute Lymphocyte Count 1.41 X10^3/uL (0.83-4.51); Absolute Neutrophil Count 4.9 X10^3/uL (2.0-7.7); Basophil# 0.01 X10^3/uL; Basophil% 0.1 % (0-1); Eosinophil# 0.36 X10^3/uL; Hematocrit 40.3 % (37-47); Hemoglobin 13.5 g/dL (12.0-15.0); Lymphocyte # 1.41 X10^3/ul (0.83-4.51); Lymphocyte % 19.4 % (19-41); Mean Corp Hgb Conc 33.5 g/dL (32-36); Mean Corpuscular Hgb 35.7 pg (27.0-32.0); Mean Corpuscular Volume 106.6 fL (81-99); Mean Platelet Vol. 11.9 fl (6.2-12.0); Monocyte# 0.53 X10^3/uL; Monocyte% 7.3 % (0-10); NRBC Flagged by Analyzer 0.3 % (0-5); Neutrophil # 4.89 X10^3/uL (2.7-7.7); Neutrophil % 67.2 % (47-70); POSITIVE MORPHOLOGY YES; Platelet Count 113 K/mm3 (150-450); RBC Distribution Width CV 16.8 % (11.6-14.6); RBC Distribution Width SD 66.8 fl (35.1-43.9); Red Blood Count 3.78 M/mm3 (4.2-5.4); White Blood Count 7.3 K/mm3 (4.4-11.0)
[2024-06-14 06:10] LABS: Differential Indicated SCAN CRITERIA MET
[2024-06-14] MEDS: Piperacil/Tazobactam 3.375 GM in 0.9% Normal Saline (50mL MB+) 50 ML IV ×2 (06:15→14:46)
[2024-06-14] MEDS: Octreotide 0.1 MG/ML ML SC ×3 (06:15→22:36)
[2024-06-14 06:30] LABS: ALB/GLOB Ratio 0.4 RATIO (0.9-2.4); AST(SGOT) 198 U/L (15-37); Alanine Aminotransfer ALT/SGPT 91 U/L (13-56); Albumin, Serum 1.8 g/dL (3.2-5.0); Alkaline Phosphatase 156 U/L (45-117); Anion Gap 8 (5-15); BUN 11 mg/dL (7-18); BUN/Creat Ratio 14.8 RATIO (10-20); Calcium,Total 8.2 mg/dL (8.5-10.1); Chloride 94 mmol/L (98-107); Creatinine, Serum 0.74 mg/dL (0.55-1.02); EST Glomerular Filtration Rate 84 mL/min (>60); Est Glom Filt Rate - Afr Amer 101 mL/min (>60); Estimated Creatinine Clearance 67.67 ml/min; Globulin 4.7 g/dL (2.2-4.2); Glucose 85 mg/dL (74-106); Potassium 3.4 mmol/L (3.5-5.1); Protein, Total 6.5 g/dL (6.4-8.2); Sodium Level 139 mmol/L (136-145)
[2024-06-14 06:43] LABS: Differential Comment SCANNED
[2024-06-14 06:44] LABS: Anisocytosis 2+; Howell-Jolly Body RARE; Platelet Estimate SLT DEC (ADEQ); Stomatocyte 1+; Target Cells 2+
[2024-06-14] MEDS: ARIPiprazole 10 MG Tablet PO (09:31)
[2024-06-14] MEDS: Midodrine HCl 5 MG Tablet 10 MG PO ×3 (09:31→18:34)
[2024-06-14] MEDS: Folic Acid 1 MG Tablet PO (09:31)
[2024-06-14] MEDS: Thiamine Hydrochloride 100 MG Tablet PO (09:31)
[2024-06-14] MEDS: Menthol/Lanolin/Calamine/Znox 113 GM Tube 1 APPLIC TOPICAL ×2 (09:32→22:38)
[2024-06-14] MEDS: busPIRone 5 MG Tablet 10 MG PO ×2 (09:32→22:37)
[2024-06-14] MEDS: Nystatin Powder 15gm Bottle 1 APPLIC TOPICAL ×2 (09:32→22:38)
[2024-06-14] MEDS: Cholecalciferol (VIT D3) 25 MCG TABLET (1,000 UNITS) PO (09:33)
[2024-06-14] MEDS: Potassium Chloride Oral Tablet 20 MEQ 40 MEQ PO (09:33)
[2024-06-14] MEDS: Ursodiol 250 MG Tablet PO ×2 (09:33→22:38)
[2024-06-14] MEDS: Azithromycin 250 MG Tablet 500 MG PO (09:34)
[2024-06-14 14:02] LABS: Vitamin B12 > 2000 pg/mL (211-911)
[2024-06-14] MEDS: Amox/Clavulanate 875 MG Tablet PO (22:37)
[2024-06-15] VITALS (22 sets, daily range): BP systolic 77–115; BP diastolic 48–88; PULSE 68–88; RESP 12–21; TEMP 36.4–36.8; O2SAT 88–97
[2024-06-15] MEDS: Albumin Human 25% (100 mL) 25 GM/100 ML BAG IV (00:09)
[2024-06-15] MEDS: Octreotide 0.1 MG/ML ML SC ×3 (05:34→20:29)
[2024-06-15 06:29] LABS: Absolute Lymphocyte Count 1.71 X10^3/uL (0.83-4.51); Absolute Neutrophil Count 4.9 X10^3/uL (2.0-7.7); Basophil# 0.02 X10^3/uL; Basophil% 0.3 % (0-1); Eosinophil# 0.27 X10^3/uL; Eosinophils% 3.5 % (0-5); Hematocrit 37.7 % (37-47); Hemoglobin 12.6 g/dL (12.0-15.0); Lymphocyte # 1.71 X10^3/ul (0.83-4.51); Lymphocyte % 22.1 % (19-41); Mean Corp Hgb Conc 33.4 g/dL (32-36); Mean Corpuscular Hgb 35.6 pg (27.0-32.0); Mean Corpuscular Volume 106.5 fL (81-99); Mean Platelet Vol. 11.7 fl (6.2-12.0); NRBC Flagged by Analyzer 0 % (0-5); Neutrophil # 4.94 X10^3/uL (2.7-7.7); Neutrophil % 63.7 % (47-70); Platelet Count 103 K/mm3 (150-450); RBC Distribution Width CV 16.6 % (11.6-14.6); RBC Distribution Width SD 64.9 fl (35.1-43.9); Red Blood Count 3.54 M/mm3 (4.2-5.4); White Blood Count 7.8 K/mm3 (4.4-11.0)
[2024-06-15 07:04] LABS: ALB/GLOB Ratio 0.5 RATIO (0.9-2.4); AST(SGOT) 182 U/L (15-37); Alanine Aminotransfer ALT/SGPT 82 U/L (13-56); Albumin, Serum 2.3 g/dL (3.2-5.0); Alkaline Phosphatase 143 U/L (45-117); Anion Gap 5 (5-15); BUN 14 mg/dL (7-18); BUN/Creat Ratio 22.4 RATIO (10-20); Calcium,Total 8.4 mg/dL (8.5-10.1); Chloride 97 mmol/L (98-107); Creatinine, Serum 0.63 mg/dL (0.55-1.02); EST Glomerular Filtration Rate 101 mL/min (>60); Est Glom Filt Rate - Afr Amer 123 mL/min (>60); Estimated Creatinine Clearance 67.67 ml/min; Globulin 4.2 g/dL (2.2-4.2); Glucose 96 mg/dL (74-106); Potassium 3.6 mmol/L (3.5-5.1); Protein, Total 6.5 g/dL (6.4-8.2); Sodium Level 140 mmol/L (136-145)
[2024-06-15] MEDS: Ursodiol 250 MG Tablet PO ×2 (08:30→20:30)
[2024-06-15] MEDS: Cholecalciferol (VIT D3) 25 MCG TABLET (1,000 UNITS) PO (08:30)
[2024-06-15] MEDS: busPIRone 5 MG Tablet 10 MG PO ×2 (08:30→20:29)
[2024-06-15] MEDS: Midodrine HCl 5 MG Tablet 10 MG PO ×3 (08:31→16:54)
[2024-06-15] MEDS: Amox/Clavulanate 875 MG Tablet PO ×2 (08:31→20:29)
[2024-06-15] MEDS: Nystatin Powder 15gm Bottle 1 APPLIC TOPICAL ×2 (08:31→20:44)
[2024-06-15] MEDS: Folic Acid 1 MG Tablet PO (08:31)
[2024-06-15] MEDS: ARIPiprazole 10 MG Tablet PO (08:31)
[2024-06-15] MEDS: Menthol/Lanolin/Calamine/Znox 113 GM Tube 1 APPLIC TOPICAL (08:31)
[2024-06-15] MEDS: Thiamine Hydrochloride 100 MG Tablet PO (08:31)
[2024-06-15] MEDS: 0.9% Saline Lock 10 ML Syringe IV (08:38)
[2024-06-15] MEDS: Carvedilol 3.125 MG TABLET PO ×2 (08:48→20:29)
[2024-06-15] MEDS: oxyCODONE 5 MG Tablet PO (14:30)
[2024-06-15 15:09] LABS: Mycoplasma Pneum AB IgG < 100 U/mL (0-99); Mycoplasma pneum. AB IgM < 770 U/mL (0-769)
== END 2024-06-15 22:45 | disposition skilled nursing facility (03) | DRG 432 ==
LOC: ED 12:23 → PCU 16:25
PROVIDERS: Anesthesiology; Internal Medicine Critical Care Medicine; Internal Medicine Gastroenterology; Admitting Provider Student in an Organized Health Care Education/Training Program; Emergency Provider Emergency Medicine; PCP Internal Medicine; Visit Provider Internal Medicine
PROC: 0DJ08ZZ Inspection of Upper Intestinal Tract, Via Natural or Artificial Opening Endoscopic (ICD-10-PCS; CPT 43235; principal; 2024-06-09 17:10)
DX: K70.11 Alcoholic hepatitis with ascites (principal); J69.0 Pneumonitis due to inhalation of food and vomit; J96.01 Acute respiratory failure with hypoxia; K22.6 Gastro-esophageal laceration-hemorrhage syndrome; G93.40 Encephalopathy, unspecified; F31.81 Bipolar II disorder; K76.6 Portal hypertension; K86.0 Alcohol-induced chronic pancreatitis; E87.1 Hypo-osmolality and hyponatremia; I85.10 Secondary esophageal varices without bleeding; K92.0 Hematemesis; K86.1 Other chronic pancreatitis; N30.00 Acute cystitis without hematuria; F10.20 Alcohol dependence, uncomplicated; I10 Essential (primary) hypertension; L89.311 Pressure ulcer of right buttock, stage 1; K70.31 Alcoholic cirrhosis of liver with ascites; I95.9 Hypotension, unspecified; K80.20 Calculus of gallbladder without cholecystitis without obstruction; F41.9 Anxiety disorder, unspecified; K31.89 Other diseases of stomach and duodenum; E87.70 Fluid overload, unspecified; E86.0 Dehydration; D75.1 Secondary polycythemia; B96.1 Klebsiella pneumoniae [K. pneumoniae] as the cause of diseases classified elsewhere; B37.2 Candidiasis of skin and nail; M81.0 Age-related osteoporosis without current pathological fracture; R00.0 Tachycardia, unspecified; Z79.891 Long term (current) use of opiate analgesic; Z79.899 Other long term (current) drug therapy; Z87.891 Personal history of nicotine dependence
CPT/HCPCS: 36415; 36600; 71045; 71275; 74177; 80053; 80076; 81001; 82140; 82248; 82607; 82746; 82803; 83605; 83690; 83880; 84443; 84484; 85025; 85610; 85730; 86706; 86738; 86803; 87040; 87077; 87086; 87088; 87186; 87340; 87631; 87635; 93005; 94002; 94762; 97110; 97162; 97166; 97530; 97535; 97803; 99284; J7030; P9047; Q9967; A4216; J1940; J2354; J3490

== ENCOUNTER → 2024-06-25 | Outpatient (CLI) | payer MEDICARE, MEDICAID, SELFPAY ==
[2024-06-25 19:46] LABS: Absolute Lymphocyte Count 2.03 X10^3/uL (0.83-4.51); Absolute Neutrophil Count 4.4 X10^3/uL (2.0-7.7); Basophil# 0.04 X10^3/uL; Basophil% 0.5 % (0-1); Eosinophil# 0.14 X10^3/uL; Eosinophils% 1.8 % (0-5); Hematocrit 34.3 % (37-47); Hemoglobin 12.1 g/dL (12.0-15.0); Lymphocyte # 2.03 X10^3/ul (0.83-4.51); Lymphocyte % 26.7 % (19-41); Mean Corp Hgb Conc 35.3 g/dL (32-36); Mean Corpuscular Hgb 35.7 pg (27.0-32.0); Mean Corpuscular Volume 101.2 fL (81-99); Mean Platelet Vol. 12.3 fl (6.2-12.0); Monocyte# 0.93 X10^3/uL; Monocyte% 12.2 % (0-10); NRBC Flagged by Analyzer 0 % (0-5); Neutrophil # 4.43 X10^3/uL (2.7-7.7); Neutrophil % 58.4 % (47-70); Platelet Count 168 K/mm3 (150-450); RBC Distribution Width CV 14.9 % (11.6-14.6); RBC Distribution Width SD 55.7 fl (35.1-43.9); Red Blood Count 3.39 M/mm3 (4.2-5.4); White Blood Count 7.6 K/mm3 (4.4-11.0)
[2024-06-25 20:19] LABS: ALB/GLOB Ratio 0.4 RATIO (0.9-2.4); AST(SGOT) 152 U/L (15-37); Alanine Aminotransfer ALT/SGPT 53 U/L (13-56); Albumin, Serum 1.9 g/dL (3.2-5.0); Alkaline Phosphatase 146 U/L (45-117); Anion Gap 9 (5-15); BUN 14 mg/dL (7-18); BUN/Creat Ratio 36.7 RATIO (10-20); Chloride 96 mmol/L (98-107); Creatinine, Serum 0.38 mg/dL (0.55-1.02); EST Glomerular Filtration Rate 180 mL/min (>60); Est Glom Filt Rate - Afr Amer 218 mL/min (>60); Globulin 4.3 g/dL (2.2-4.2); Glucose 120 mg/dL (74-106); Potassium 3.1 mmol/L (3.5-5.1); Protein, Total 6.2 g/dL (6.4-8.2); Sodium Level 132 mmol/L (136-145)
[2024-06-28 18:06] LABS: BNP,B-Type NATRIURETIC PEPTIDE 96.5 pg/mL (0-100)
== END | disposition home or self-care (01) ==
PROVIDERS: PCP Internal Medicine; Referring Provider Family Medicine; Visit Provider Family Medicine
DX: R06.02 Shortness of breath (principal)
CPT/HCPCS: 80053; 83880; 85025

== ENCOUNTER → 2024-07-09 | Outpatient (CLI) | payer MEDICARE, MEDICAID, SELFPAY ==
--- NOTE | 2024-07-09 09:32 | OP.PCM_ITS ---
Problems Associated Problem List Diagnoses (1) Alcoholic pancreatitis: (2) Abdominal ascites: Operative Report (Standard) Operative Information Date of Procedure: 07/09/24 Pre-Operative Diagnosis: abdominal ascites Post-Operative Diagnosis: abdominal ascites Surgery/Procedure Performed: ultrasound guided paracentesis molecular biologist: No Type of Anesthesia: Local Procedure Start Time: 09:05 Select all DRAINS/GRAFTS/IMPLANTS that apply: None
--- NOTE | 2024-07-09 09:32 | PCM.OPRPT ---
Problems Associated Problem List Diagnoses (1) Alcoholic pancreatitis: (2) Abdominal ascites: Multi Select Codes Radiology Radiology US Procedures: 17143 Paracentesis Operative Report (Standard) Operative Information Date of Procedure: 07/09/24 Pre-Operative Diagnosis: abdominal ascites Post-Operative Diagnosis: abdominal ascites Surgery/Procedure Performed: ultrasound guided paracentesis bank operations officer: No Type of Anesthesia: Local Procedure Start Time: 09:05 Procedure Stop Time: 09:35 Select all DRAINS/GRAFTS/IMPLANTS that apply: None Estimated Blood Loss: 0 Specimen collected: No Description of surgery: PROCEDURE: Ultrasound guided paracentesis ORDERING PROVIDER: Piper Norman NP INDICATION: Female, 64 years old. Abdominal ascites. PROVIDER: Jillian Saenz CNP TECHNIQUE: The risks, benefits, and alternatives to the procedure were explained to the patient. The specific risks of bleeding, infection, and damage to bowel were detailed and accepted. Witnessed informed consent was obtained. The abdomen was ultrasonographically surveyed. An appropriate pocket of fluid was identified in the right upper quadrant. The skin was prepped with chlorhexidine and sterile field established. 2% lidocaine was used for local anesthetic. Using ultrasound guidance, the peritoneal cavity was accessed with a 5-Grenadian paracentesis needle/catheter system. The trocar was removed. A total of 1500 ml of clear yellow colored fluid was removed from the peritoneal cavity. The catheter was removed and a sterile dressing was applied. The procedure was well tolerated. IMPRESSION: Successful ultrasound guided paracentesis with right upper quadrant access site. Surgical Findings: Uncomplicated Complications Complications: No
[2024-07-09 10:00] VITALS: BP 93/72; PULSE 125; RESP 18; TEMP 37; O2SAT 95
[2024-07-09 10:01] VITALS: BP 90/66; PULSE 120; RESP 18; O2SAT 96
[2024-07-09 10:02] VITALS: BP 110/60; PULSE 135; RESP 18; O2SAT 98
== END | disposition home or self-care (01) ==
PROVIDERS: PCP Family Medicine; Referring Provider Nurse Practitioner Family; Visit Provider Nurse Practitioner Family
DX: R18.8 Other ascites (principal); K85.20 Alcohol induced acute pancreatitis without necrosis or infection
CPT/HCPCS: 49083

== ENCOUNTER 2024-07-18 21:45 | Emergency (ER) | payer MEDICARE, MEDICAID, SELFPAY ==
[2024-07-18 21:47] VITALS: BP 93/70; PULSE 125; RESP 18; TEMP 36.6; O2SAT 95; BMI 35.2
[2024-07-18 21:51] VITALS: BP 120/64; PULSE 110; RESP 18; TEMP 36.9; O2SAT 94
--- NOTE | 2024-07-18 22:21 | CT_ITS ---
EXAM: CT ABDOMEN AND PELVIS WITH INTRAVENOUS CONTRAST CLINICAL INDICATION: Ascites TECHNIQUE: Helically acquired images were obtained of the abdomen and pelvis with intravenous contrast. This CT exam was performed using one or more of the following dose reduction techniques: automated exposure control, adjustment of the mA and/or kV according to patient size, and/or use of iterative reconstruction technique. CONTRAST: IV 100mL Isovue-370 RADIATION DOSE: CTDIvol = 30.91 mGy, DLP = 1645.14 mGy-cm COMPARISON: Ultrasound from 06/08/2024 FINDINGS: LOWER THORAX: Moderate pleural effusions and bilateral lower lobe consolidations. No cardiomegaly. ABDOMEN: LIVER: Homogeneous. No focal mass. GALLBLADDER AND BILE DUCTS: Small stones in the gallbladder. No gallbladder distention or wall edema. No intra- or extrahepatic biliary ductal dilation. PANCREAS: Unremarkable. No focal cystic or solid mass. SPLEEN: Unremarkable. Normal size without focal cystic or solid mass. ADRENALS: Unremarkable. No nodules. KIDNEYS AND URETERS: Nonobstructing stone in the right kidney measuring 1 cm. Normal renal size and position. STOMACH AND BOWEL: Unremarkable. No stomach or bowel distention. No focal inflammatory change. PELVIS: APPENDIX: The appendix is normal. BLADDER: Unremarkable. REPRODUCTIVE: Unremarkable as visualized. No mass. ABDOMEN and PELVIS: INTRAPERITONEAL SPACE: Increasing, moderate amount ascites. No free air. BONES/JOINTS: Right hip arthroplasty. Multiple chronic compression deformities in the spine with multilevel kyphoplasty changes. No suspicious lytic or blastic abnormality. SOFT TISSUES: Unremarkable. No discrete abdominal or pelvic wall hernia. VASCULATURE: No significant enhancement of the vasculature or organs, correlate for possible contrast extravasation at the injection site. Abdominal aorta is non-dilated. LYMPH NODES: Unremarkable. No enlarged lymph nodes. CT/Abdomen/Pelvis W IV Cont ONLY IMPRESSION: 1. No significant enhancement of the vasculature or organs, correlate for possible contrast extravasation at the injection site. 2. Increasing, moderate amount ascites. This may be secondary to hepatic or renal dysfunction. 3. Small stones in the gallbladder. 4. Nonobstructing stone in the right kidney measuring 1 cm. 5. Moderate pleural effusions and bilateral lower lobe consolidations. Findings may indicate atelectasis or pneumonia. Electronically Signed: Ty Dumas MD at 23:54 EST ,
[2024-07-18 22:37] LABS: Absolute Lymphocyte Count 2.59 X10^3/uL (0.83-4.51); Absolute Neutrophil Count 3.3 X10^3/uL (2.0-7.7); Basophil# 0.03 X10^3/uL; Basophil% 0.4 % (0-1); Eosinophil# 0.18 X10^3/uL; Eosinophils% 2.5 % (0-5); Hematocrit 34.2 % (37-47); Hemoglobin 11.6 g/dL (12.0-15.0); Lymphocyte # 2.59 X10^3/ul (0.83-4.51); Lymphocyte % 36.7 % (19-41); Mean Corp Hgb Conc 33.9 g/dL (32-36); Mean Corpuscular Hgb 34.1 pg (27.0-32.0); Mean Corpuscular Volume 100.6 fL (81-99); Mean Platelet Vol. 11.3 fl (6.2-12.0); Monocyte% 12.7 % (0-10); NRBC Flagged by Analyzer 0 % (0-5); Neutrophil # 3.34 X10^3/uL (2.7-7.7); Neutrophil % 47.4 % (47-70); Platelet Count 173 K/mm3 (150-450); RBC Distribution Width CV 13.8 % (11.6-14.6); RBC Distribution Width SD 50.9 fl (35.1-43.9); White Blood Count 7.1 K/mm3 (4.4-11.0)
[2024-07-18 22:45] LABS: International Normalized Ratio 1.6; Prothrombin Time (Protime)PT. 18.9 SECONDS (11.7-14.9)
[2024-07-18 22:46] LABS: Partial Thromboplast Time 31.1 Seconds (24.1-36.2)
--- NOTE | 2024-07-18 22:50 | RAD_ITS ---
EXAM: XR CHEST, 1 VIEW CLINICAL INDICATION: dyspnea TECHNIQUE: Frontal view of the chest. COMPARISON: Single view chest 06/11/2024 FINDINGS: LUNGS AND PLEURAL SPACES: Mild bibasilar airspace disease and small pleural effusions. No pneumothorax. HEART: Unremarkable. Cardiac silhouette not enlarged. MEDIASTINUM: Central airways and mediastinal contour are unremarkable. BONES/JOINTS: Unremarkable. No acute fracture. SOFT TISSUES: Unremarkable. RAD/Chest 1 View (Portable) IMPRESSION: Mild bibasilar airspace disease and small pleural effusions. Findings may indicate atelectasis or infection. Electronically Signed: Ty Dumas MD at 23:29 EST ,
[2024-07-18 22:51] VITALS: BP 102/69; PULSE 105; RESP 18; TEMP 36.8; O2SAT 94
[2024-07-18 22:54] LABS: AST(SGOT) 67 U/L (15-37); Alanine Aminotransfer ALT/SGPT 29 U/L (13-56); Albumin, Serum 1.9 g/dL (3.2-5.0); Alkaline Phosphatase 171 U/L (45-117); Anion Gap 6 (5-15); BUN 10 mg/dL (7-18); BUN/Creat Ratio 18.1 RATIO (10-20); Bilirubin, Direct 1.43 mg/dL (0.00-0.30); Calcium,Total 8.6 mg/dL (8.5-10.1); Chloride 103 mmol/L (98-107); Creatinine, Serum 0.55 mg/dL (0.55-1.02); EST Glomerular Filtration Rate 117 mL/min (>60); Est Glom Filt Rate - Afr Amer 142 mL/min (>60); Estimated Creatinine Clearance 71.92 ml/min; Globulin 4.6 g/dL (2.2-4.2); Glucose 124 mg/dL (74-106); Potassium 3.8 mmol/L (3.5-5.1); Protein, Total 6.5 g/dL (6.4-8.2); Sodium Level 138 mmol/L (136-145)
[2024-07-18 23:00] VITALS: BP 100/67; PULSE 107; RESP 16; TEMP 36.6; O2SAT 94
[2024-07-18 23:46] VITALS: BP 99/61; PULSE 107; RESP 18; O2SAT 93
[2024-07-19] VITALS: BP 105/68; PULSE 102; RESP 13; TEMP 36.7; O2SAT 95
--- NOTE | 2024-07-19 00:51 | EDS_ITS ---
HPI History of Present Illness Chief Complaint: Abd Pain Informant: patient and SNF Narrative Narrative: Patient is a 68-year-old female with past medical history of hypertension bipolar disorder and alcohol abuse leading to alcoholic hepatitis and ascites. She underwent a paracentesis on July 09 and had 1.5 L of fluid removed. senior care states that in the past 5 days she has put on 13 pounds and they have noticed increased swelling to her abdomen and legs. Patient reports that she will feel short of breath with speech. With concern she may need a repeat paracentesis she was sent to the hospital for evaluation [facility] Medical History Polycythemia Alcoholic hepatitis Pressure sore on buttocks Alcohol abuse Generalized weakness Cystocele History of vertebral compression fracture Debility Venous thromboembolism (VTE) prophylaxis provided within 24 hours of arrival Vertebral compression fracture Intractable low back pain Abnormal CT of the chest Anxiety Chronic back pain Osteoporosis Arthritis Compression fracture of thoracic spine, non-traumatic Pancreatitis Bipolar II disorder Alcohol use disorder, moderate, dependence Hypertension Urinary urgency Marijuana use Shortness of breath on exertion Leg cramps Seborrheic dermatitis Neck pain Bowel incontinence Urinary incontinence Alcoholic pancreatitis Scalp psoriasis Debility Wears contact lenses Anxiety Walker as ambulation aid Injury of head and neck Difficulty swallowing Non-smoker Pain at injection site Compression fracture Depression Alcohol use Osteoporosis Scoliosis Home Medications ?Medication ?Instructions ?Recorded ?Last Taken ?Type acetaminophen 500 mg tablet 1,000 mg PO Q6H PRN pain 11/08/20 10/06/22 20:50 History (Tylenol Extra Strength) Lift Chair #1 ea 12/08/20 Unknown Rx diaper,brief,adult,disposable #200 ea 09/22/23 Unknown Rx (Adjustable Underwear) cholecalciferol (vitamin D3) 50 25 mcg PO DAILY 12/29/23 Unknown History mcg (2,000 unit) capsule thiamine HCl (vitamin B1) 100 mg 100 mg PO DAILY #90 tabs 12/30/23 Unknown Rx tablet aripiprazole 10 mg tablet 10 mg PO DAILY #30 tabs 03/18/24 Unknown Rx buspirone 10 mg tablet 10 mg PO BID #60 tabs 03/18/24 Unknown Rx ursodiol 250 mg tablet 250 mg PO BID #60 TABLETS 04/13/24 Unknown Rx multivitamin (One Daily 1 tab PO DAILY #90 tabs 06/02/24 Unknown Rx Multivitamin tablet) carvedilol 3.125 mg tablet 3.125 mg PO BID #0 tabs 06/15/24 Unknown Rx folic acid 1 mg tablet 1 mg PO BREAKFAST #0 tabs 06/15/24 Unknown Rx menthol 0.44 %-zinc oxide 20.6 % 1 applic topical BID #0 grams 06/15/24 Unknown Rx topical ointment (Calmoseptine) midodrine 5 mg tablet 10 mg (2 x 5 mg) PO TIDCM #0 tabs 06/15/24 Unknown Rx nystatin 100,000 unit/gram topical 1 applic topical BID #0 grams 06/15/24 Unknown Rx powder (Nyamyc) oxycodone 5 mg tablet 5 mg PO Q6H PRN PRN Pain Score 06/15/24 Unknown Rx 1-10 2 days #5 tabs trazodone 100 mg tablet 100 mg PO QHS PRN PRN Insomnia #0 06/15/24 Unknown Rx tabs Allergy/AdvReac Type Severity Reaction Status Date / Time No Known Allergies Allergy Verified 06/08/24 10:11 Family History Mother Heart disease Other Osteoporosis Surgical History S/P tubal ligation History of esophagogastroduodenoscopy (EGD) Hx of kyphoplasty History of back surgery History of wisdom tooth extraction Hx of total hip arthroplasty S/P kyphoplasty History of tubal ligation Social History household members: none current occupational status: disabled Smoking Status: Former smoker Tobacco: How many years used: 2 Electronic Cigarette Use: not used second hand exposure: No alcohol intake: current alcohol intake frequency: 3 or more drinks per day Alcohol type: hard liquor details: Has been drinking everyday for about 15years substance use type: does not use what type of physical activity do you participate in: none seatbelt use: always do you feel safe at home: Yes additional social history: single ROS ROS ED Constitutional Constitutional ED: Denies chills or fever(s) Eyes Eyes: Denies blurry vision or change in vision ENT ENT ED: Denies sore throat Cardiovascular Cardiovascular: Reports other Details: Positive leg swelling ; Denies chest pain, palpitations or racing heartbeat Respiratory/Chest Respiratory/Chest: Reports dyspnea; Denies cough Gastrointestinal Gastrointestinal: Reports other Details: Positive abdominal distention ; Denies abdominal pain, diarrhea, nausea or vomiting Genitourinary Genitourinary ED: Denies dysuria Musculoskeletal Musculoskeletal: Denies myalgias Integumentary Denies rash Neurologic Neurologic: Denies headache(s) Hematologic/Lymphatic Hematologic/Lymphatic: Reports easy bleeding and easy bruising EXAM Physical Exam Const Vital Signs: 07/18/24 21:47 07/18/24 21:51 07/18/24 22:51 Temperature 98 F 98.5 F 98.2 F Temperature Source Oral Oral Oral Pulse Rate 125 H 110 H 105 H Respiratory Rate 18 18 18 Blood Pressure 93/70 120/64 102/69 Blood Pressure Mean 77 82 80 Pulse Ox 95 94 94 Oxygen Delivery Method Nasal Cannula Nasal Cannula Nasal Cannula Oxygen Flow Rate (L/min) 2 2 2 07/18/24 23:00 07/18/24 23:46 07/19/24 00:00 Temperature 98 F 98.0 F Temperature Source Oral Oral Pulse Rate 107 H 107 H 102 H Respiratory Rate 16 18 13 Blood Pressure 100/67 99/61 105/68 Blood Pressure Mean 78 73 80 Pulse Ox 94 93 95 Oxygen Delivery Method Nasal Cannula Nasal Cannula Nasal Cannula Oxygen Flow Rate (L/min) 2 2 2 Positive well nourished, well developed and obese General Appearance ED: well developed Nutritional Appearance: obese HEENT Reports moist mucous membranes HEENT Narrative: No tongue or lip swelling no oral lesions no airway edema or compromise No signs of infection noted in the posterior pharynx Eyes PERRL and EOMs intact bilaterally General Eye ED: Yes scleral icterus Neck supple and no JVD Neck Narrative: No nuchal rigidity or meningeal signs Resp normal respiratory effort Resp Narrative: Breath sounds are diminished throughout with faint crackles noted in the bilateral bases However no nasal flaring retractions tachypnea or accessory muscle use Cardio regular rate and regular rhythm GI non-tender and no masses GI Narrative: Abdomen is soft but distended. Bowel sounds are normal active. No pulsatile mass. No voluntary guarding or rigidity. No tenderness to palpation. Patient does have ascites with fluid wave present consistent with history of cirrhosis/alcoholic hepatitis Auscultation: normoactive bowel sounds Palpation: soft Extremity Extremity Narrative: +1-2 pitting edema to the bilateral lower extremities that is equal and symmetric Negative Homans' sign bilaterally Neuro oriented x3, CN's II-XII intact bilaterally and no sensory deficits noted Sensorium / Orientation: alert Psych Psych Narrative: Patient has a depressed/flat affect Mood & Affect: depressed Skin no rashes or lesions noted Skin Narrative: Slight jaundice is noted General Skin Exam: jaundice MDM MDM MDM Narrative Medical decision making narrative: Patient arrived to ER slightly tachycardic but otherwise with stable vital. History and exam is consistent with return of abdominal ascites which would correlate with her abdominal distention leg edema recent weight gain and shortness of breath with speech. In order to check for development of pleural effusions versus potential infectious process such as spontaneous bacterial peritonitis I did elect to perform a chest x-ray and basic laboratory studies. White count is negative going against infectious process. Patient's liver enzymes are near her baseline. She does not have signs of acute kidney injury or clinically significant electrolyte abnormality. Chest x-ray shows small pleural effusions which correlate with her history and exam. She is in respiratory distress where she will require BiPAP. CT abdomen pelvis confirmed increasing ascites which correlates with her weight gain and peripheral edema. At this time she is hemodynamically stable and she [facility]. She does not have findings for spontaneous bacterial peritonitis. I do feel she would benefit from a paracentesis based on the increasing weight gain and soft tissue swelling in the pleural effusions noted on CT/chest x-ray. Therefore at this time she will be held in the ER until Friday at that time she did undergo paracentesis but as she is hemodynamically stable without signs of infection there will be no need for admission and she is otherwise safe to return to the prison following her procedure. History & Record Review Discussion w/independent historian: Patient Lab Data Attestation: I reviewed the patient's lab results. Labs: Laboratory Results - last 24 hr 07/18/24 22:07 WBC 7.1 RBC 3.40 L Hgb 11.6 L Hct 34.2 L MCV 100.6 H MCH 34.1 H MCHC 33.9 RDW Std Deviation 50.9 H RDW Coeff of Laxmi 13.8 Plt Count 173 MPV 11.3 Immature Gran % (Auto) 0.300 Neut % (Auto) 47.4 Lymph % (Auto) 36.7 [place] % (Auto) 12.7 H Eos % (Auto) 2.5 Baso % (Auto) 0.4 Absolute Neuts (auto) 3.3 Absolute Lymphs (auto) 2.59 Nucleated RBC % 0 PT 18.9 H INR 1.6 APTT 31.1 Sodium 138 Potassium 3.8 Chloride 103 Carbon Dioxide 29.0 Anion Gap 6 BUN 10 Creatinine 0.55 Estim Creat Clear Calc 71.92 Est GFR (MDRD) Af Amer 142 Est GFR (MDRD) Non-Af 117 BUN/Creatinine Ratio 18.1 Glucose 124 H Calcium 8.6 Total Bilirubin 2.10 H Direct Bilirubin 1.43 H AST 67 H ALT 29 Alkaline Phosphatase 171 H Total Protein 6.5 Albumin 1.9 L Globulin 4.6 H Radiography Diagnostic Testing: Clinical Impression(s) from Imaging Studies Abdomen/Pelvis CT 07/18/24 22:21 IMPRESSION: 1. No significant enhancement of the vasculature or organs, correlate for possible contrast extravasation at the injection site. 2. Increasing, moderate amount ascites. This may be secondary to hepatic or renal dysfunction. 3. Small stones in the gallbladder. 4. Nonobstructing stone in the right kidney measuring 1 cm. 5. Moderate pleural effusions and bilateral lower lobe consolidations. Findings may indicate atelectasis or pneumonia. Electronically Signed: Ty Dumas MD at 23:54 EST Reading Location ID and State: [facility] / [place] Tel , Service support , Chest X-Ray 07/18/24 22:50 IMPRESSION: Mild bibasilar airspace disease and small pleural effusions. Findings may indicate atelectasis or infection. Electronically Signed: Ty Dumas MD at 23:29 EST , Chest x-ray as interpreted by the emergency medicine physician reveals small bilateral pleural effusions without obvious infiltrate or pneumothorax Discharge Plan Triage Chief Complaint: Abd Pain ED Provider: Robb Chery Dx/Rx/DC Orders Clinical Impression: Abdominal ascites, Debility, Alcoholic hepatitis, Bipolar disorder, Hypertension Instructions: ED Ascites Prescriptions: No Action acetaminophen [Tylenol Extra Strength] 500 mg tablet 1,000 mg PO Q6H PRN (Reason: pain) (DME) Adjustable Underwear Misc See Rx Instructions .ROUTE .MEDSUPPLY Qty: 200 3RF Rx Instructions: As directed. Large aripiprazole 10 mg tablet 10 mg PO DAILY Qty: 30 5RF buspirone 10 mg tablet 10 mg PO BID Qty: 60 5RF cholecalciferol (vitamin D3) 50 mcg (2,000 unit) capsule 25 mcg PO DAILY midodrine 5 mg Tablet 10 mg PO TIDCM Qty: 0 0RF carvedilol 3.125 mg Tablet 3.125 mg PO BID Qty: 0 0RF folic acid 1 mg Tablet 1 mg PO BREAKFAST Qty: 0 0RF nystatin [Nyamyc] 100,000 unit/gram Powder 1 applic topical BID Qty: 0 0RF Protocol: *Topical Application Instructions APPLICATION INSTRUCTIONS: apply to groin menthol-zinc oxide [Calmoseptine] 0.44-20.6 % Ointment 1 applic topical BID Qty: 0 0RF Protocol: *Topical Application Instructions APPLICATION INSTRUCTIONS: apply to buttock trazodone 100 mg Tablet 100 mg PO QHS PRN PRN (Reason: Insomnia) Qty: 0 0RF oxycodone 5 mg Tablet 5 mg PO Q6H PRN PRN (Reason: Pain Score 1-10) 2 Days Qty: 5 0RF (DME) Lift Chair See Rx Instructions .Route .MEDSUPPLY Qty: 1 0RF Rx Instructions: As directed thiamine HCl (vitamin B1) 100 mg tablet 100 mg PO DAILY Qty: 90 3RF ursodiol 250 mg tablet 250 mg PO BID Qty: 60 9RF multivitamin [One Daily Multivitamin] Tablet 1 tab PO DAILY Qty: 90 1RF Primary Care Provider: Maxim Stokes Referrals: Maxim Stokes MD [Primary Care Provider] - Activity Restrictions/Additional Instructions: Please discuss with your family doctor and/or oleomargarine maker need for a recurrent paracentesis schedule as your ascites will recur based on your history of liver damage and the recurrent/scheduled paracentesis can prevent accumulation of fluid. Return to the ER should you have any further concern Print Language: [place] Citizen Disposition Disposition: Home, Self Care
--- NOTE | 2024-07-19 07:00 | US_ITS ---
EXAM: US Abdomen Limited (quadrant) HISTORY: Ascites survey COMPARISON: CT from yesterday Technique: Limited four-quadrant transabdominal ultrasound FINDINGS: There is anechoic ascites noted in all 4 quadrants of the abdomen. Largest fluid collection in the left lower quadrant was marked for possible paracentesis US/Abdomen Limited IMPRESSION: 4 quadrant anechoic ascites Electronically Signed: Terrence Ortega MD at 8:36 EST ,
[2024-07-19 08:27] VITALS: BP 105/69; PULSE 107; RESP 14; O2SAT 97
--- NOTE | 2024-07-19 08:28 | ED.RN ---
THIS RN SPOKE WITH EDDIE AT THE E. SHE UNDERSTANDS THE PLAN OF CARE TO SEND PATIENT BACK DUE TO STABILITY, LOW FLUID COLLECTION. THE E TO SEND OUTPATIENT ORDER TO [facility] FOR OUTPATIENT PARA TO BE SCHEDULED BY IR WHEN ORDER RECEIVED.
[2024-07-19] MEDS: busPIRone 5 MG Tablet 10 MG PO (08:54)
[2024-07-19] MEDS: ARIPiprazole 10 MG Tablet PO (08:54)
[2024-07-19] MEDS: Creon 24,000 unit DR Capsule 1 CAP PO (08:55)
[2024-07-19] MEDS: Ursodiol 250 MG Tablet PO (08:55)
[2024-07-19 10:41] VITALS: BP 110/67; PULSE 110; RESP 16; TEMP 36.6; O2SAT 98
== END 2024-07-19 10:42 | disposition home or self-care (01) ==
PROVIDERS: Emergency Provider Emergency Medicine; PCP Family Medicine; Visit Provider Emergency Medicine
DX: K70.11 Alcoholic hepatitis with ascites (principal); F31.9 Bipolar disorder, unspecified; R06.03 Acute respiratory distress; R53.81 Other malaise; I10 Essential (primary) hypertension; M54.9 Dorsalgia, unspecified; R14.0 Abdominal distension (gaseous); M79.89 Other specified soft tissue disorders; J90 Pleural effusion, not elsewhere classified; R10.9 Unspecified abdominal pain; Z79.899 Other long term (current) drug therapy; Z87.891 Personal history of nicotine dependence
CPT/HCPCS: 71045; 74177; 76705; 80048; 80076; 85025; 85610; 85730; 99285; Q9967; A4216

== ENCOUNTER → 2024-07-23 | Outpatient (CLI) | payer MEDICARE, MEDICAID, SELFPAY ==
--- NOTE | 2024-07-23 07:55 | US_ITS ---
PROCEDURE: Ultrasound guided paracentesis. DATE OF EXAMINATION: July 23, 2024.. INDICATION: Female, 64 years old. Ascites. PHYSICIAN: Pedro Timmons M.D. TECHNIQUE: The risks, benefits, and alternatives to the procedure were explained to the patient. The specific risks of bleeding, infection, and damage to bowel were detailed and accepted. Witnessed informed consent was obtained. The abdomen was ultrasonographically surveyed. An appropriate pocket of fluid was identified at the left lower quadrant. The skin were cleaned and prepped in the usual sterile fashion. Using ultrasound guidance, the peritoneal cavity was accessed with a 5-Maltese paracentesis needle/catheter system. The trocar was removed. A total of 2900 ml of yung-colored fluid were removed from the peritoneal cavity. The catheter was removed and a sterile dressing was applied. The procedure was well tolerated. US/Paracentesis with US IMPRESSION: Ultrasound guided paracentesis. Electronically Signed: Pedro Timmons MD at 10:15 EST ,
[2024-07-23] MEDS: Lidocaine 2% (20 ml mdv) 20 ML Vial INFILT (08:27)
[2024-07-23 08:48] VITALS: BP 121/70; PULSE 146; RESP 18; TEMP 36.7; O2SAT 94
[2024-07-23 08:49] VITALS: BP 126/70; PULSE 140; RESP 18; O2SAT 96
[2024-07-23 08:50] VITALS: BP 118/63; PULSE 135; RESP 18; O2SAT 96
== END | disposition home or self-care (01) ==
PROVIDERS: PCP Family Medicine; Referring Provider Nurse Practitioner Family; Visit Provider Nurse Practitioner Family
DX: K74.60 Unspecified cirrhosis of liver (principal); R18.8 Other ascites
CPT/HCPCS: 49083

== ENCOUNTER 2024-08-05 19:19 | Inpatient (IN) | payer MEDICARE, MEDICAID, SELFPAY ==
[2024-08-05] VITALS (8 sets, daily range): BP systolic 80–115; BP diastolic 53–78; PULSE 95–121; RESP 12–28; TEMP 36.5–36.6; O2SAT 94–98; BMI 33.2
--- NOTE | 2024-08-05 19:46 | CT_ITS ---
INDICATION: abd pain. s/p paracentesis today EXAMINATION: CT ABDOMEN AND PELVIS WITH CONTRAST - CT Abdomen And Pelvis W/ Contrast Injection TECHNIQUE: Helically acquired images were obtained of the abdomen and pelvis following IV contrast. A radiation dose optimization technique was used for this scan. IV Contrast dosage and agent: 100 cc Isovue-370 Oral contrast: None. COMPARISON: 07/18/2024 FINDINGS: LOWER CHEST: Bilateral pleural effusions with bilateral lower lobes consolidations. No cardiomegaly or pericardial effusion. LIVER: Homogeneous. No focal mass. GALLBLADDER AND BILIARY TREE: Calcified gallstones. No gallbladder distension or wall edema. No intra- or extrahepatic biliary ductal dilation. PANCREAS: No focal cystic or solid mass. SPLEEN: Normal size without focal cystic or solid mass. ADRENAL GLANDS: No nodules. KIDNEYS AND URETERS: Stable nonobstructing right renal calculus. No hydronephrosis. PERITONEUM: Scattered ascites. No free air. BOWEL: Normal appendix. Moderate distention of proximal small bowel with gradual return to normal caliber by the mid small bowel. No focal inflammatory change. LYMPH NODES: No enlarged mesenteric or retroperitoneal lymph nodes. VESSELS: Aorta is non-dilated. URINARY BLADDER: Unremarkable. REPRODUCTIVE ORGANS: No pelvic masses. ABDOMINAL WALL: Simple fluid attenuation collection outside of the left lateral abdominal wall with overlying fatty induration of the subcutaneous tissue. The collection is 22 cm in craniocaudal extent and up to a maximum thickness of 2 cm, 13 cm AP. BONES: Multilevel kyphoplasty with interval positional kyphoplasty treatment at T11. Right hip prosthesis. CT/Abdomen/Pelvis W IV Cont ONLY IMPRESSION: Extraperitoneal fluid collection along the left lateral abdominal wall, dimensions as above. Adjacent subcutaneous induration may be edema or cellulitis. Probable enteritis versus partial small bowel obstruction. Bilateral pleural effusions with adjacent consolidations, pneumonia versus atelectasis. Electronically Signed: Jeramy Davies MD at 20:37 EST ,
--- NOTE | 2024-08-05 19:47 | EDS_ITS ---
HPI HPI - GI History of Present Illness Chief Complaint: Nausea/Vomiting Informant: patient Abdominal Pain/Flank Pain Onset: Today and Hours (Started around 6 PM.) Timing: Continuous Quality: Cramping Location: Diffuse and Epigastric Current Severity: Mild Maximum Severity: Mild Worsened by: Nothing Relieved by: Nothing Nausea/Vomiting/Emesis GI Symptom: Positive for Nausea and Vomiting Onset: Today Severity: Mild Diarrhea/Melena/Hematochezia GI Symptom: Positive for Diarrhea; Negative for Melena or Hematochezia Onset: Today Stool Quality: Positive for Loose Severity: Mild Associated Symptoms Associated Symptoms: Negative for Dysuria, Frequency or Hematuria Narrative Narrative: 64-year-old has a past medical history of alcoholic hepatitis, pancreatitis, alcoholic cirrhosis and bipolar. [facility] Today had a ultrasound-guided paracentesis. Since that went well. He took off 1 to 2 L she thought. Tonight after eating her dinner around 6 PM started having nausea, vomiting and diarrhea with epigastric and diffuse abdominal pain. She denies any fever. No dysuria. Denies any prior abdominal surgeries. Prior similar symptoms: Yes Recent Illness/Hospitalization: Yes [facility] Medical History Polycythemia Alcoholic hepatitis Pressure sore on buttocks Alcohol abuse Generalized weakness Cystocele History of vertebral compression fracture Debility Venous thromboembolism (VTE) prophylaxis provided within 24 hours of arrival Vertebral compression fracture Intractable low back pain Abnormal CT of the chest Anxiety Chronic back pain Osteoporosis Arthritis Compression fracture of thoracic spine, non-traumatic Pancreatitis Bipolar II disorder Alcohol use disorder, moderate, dependence Hypertension Urinary urgency Marijuana use Shortness of breath on exertion Leg cramps Seborrheic dermatitis Neck pain Bowel incontinence Urinary incontinence Alcoholic pancreatitis Scalp psoriasis Debility Wears contact lenses Anxiety Walker as ambulation aid Injury of head and neck Difficulty swallowing Non-smoker Pain at injection site Compression fracture Depression Alcohol use Osteoporosis Scoliosis Home Medications ?Medication ?Instructions ?Recorded ?Last Taken ?Type Lift Chair #1 ea 12/08/20 Unknown Rx diaper,brief,adult,disposable #200 ea 09/22/23 Unknown Rx (Adjustable Underwear) cholecalciferol (vitamin D3) 50 25 mcg PO DAILY 12/29/23 Unknown History mcg (2,000 unit) capsule thiamine HCl (vitamin B1) 100 mg 100 mg PO DAILY #90 tabs 12/30/23 Unknown Rx tablet aripiprazole 10 mg tablet 10 mg PO DAILY #30 tabs 03/18/24 Unknown Rx buspirone 10 mg tablet 10 mg PO BID #60 tabs 03/18/24 Unknown Rx ursodiol 250 mg tablet 250 mg PO BID #60 TABLETS 04/13/24 Unknown Rx multivitamin (One Daily 1 tab PO DAILY #90 tabs 06/02/24 Unknown Rx Multivitamin tablet) carvedilol 3.125 mg tablet 3.125 mg PO BID #0 tabs 06/15/24 Unknown Rx folic acid 1 mg tablet 1 mg PO BREAKFAST #0 tabs 06/15/24 Unknown Rx menthol 0.44 %-zinc oxide 20.6 % 1 applic topical BID #0 grams 06/15/24 Unknown Rx topical ointment (Calmoseptine) midodrine 5 mg tablet 10 mg (2 x 5 mg) PO TIDCM #0 tabs 06/15/24 Unknown Rx nystatin 100,000 unit/gram topical 1 applic topical BID #0 grams 06/15/24 Unknown Rx powder (Nyamyc) oxycodone 5 mg tablet 5 mg PO Q6H PRN PRN Pain Score 06/15/24 Unknown Rx 1-10 2 days #5 tabs trazodone 100 mg tablet 100 mg PO QHS PRN PRN Insomnia #0 06/15/24 Unknown Rx tabs furosemide 40 mg tablet 40 mg PO BID 07/30/24 Unknown History qenlnf-lreswaaj-iqkofgl 1 cap PO TID 07/30/24 Unknown History 24,000-76,000-120,000 unit capsule,delayed rel (Creon) ondansetron HCl 4 mg tablet 4 mg PO Q8H PRN nausea and vomiting 07/30/24 Unknown History potassium chloride 20 mEq 20 meq PO BID 07/30/24 Unknown History tablet,extended release spironolactone 25 mg tablet 25 mg PO DAILY 08/05/24 Unknown History (Aldactone) Allergy/AdvReac Type Severity Reaction Status Date / Time No Known Allergies Allergy Verified 08/05/24 19:20 Family History Mother Heart disease Other Osteoporosis Surgical History History of hip replacement S/P tubal ligation History of esophagogastroduodenoscopy (EGD) Hx of kyphoplasty History of back surgery History of wisdom tooth extraction Hx of total hip arthroplasty S/P kyphoplasty History of tubal ligation Social History household members: none current occupational status: disabled Smoking Status: Former smoker Tobacco: How many years used: 2 Electronic Cigarette Use: not used second hand exposure: No alcohol intake: current alcohol intake frequency: 3 or more drinks per day Alcohol type: hard liquor details: Has been drinking everyday for about 15years substance use type: does not use what type of physical activity do you participate in: none seatbelt use: always do you feel safe at home: Yes additional social history: single ROS ROS ED ROS Narrative Nausea, vomiting and diarrhea. Abdominal cramping. Constitutional Constitutional ED: Denies chills or fever(s) ENT ENT ED: Denies ear pain Cardiovascular Cardiovascular: Denies chest pain Respiratory/Chest Respiratory/Chest: Denies cough or dyspnea Gastrointestinal Gastrointestinal: Reports abdominal pain, diarrhea, nausea and vomiting; Denies constipation or melena Genitourinary Genitourinary ED: Denies dysuria or hematuria Musculoskeletal Musculoskeletal: Denies arthralgias Integumentary Denies abscess Neurologic Neurologic: Denies headache(s) Psychiatric Psychiatric: Denies anxiety Endocrine Endocrinology: Denies polydipsia Hematologic/Lymphatic Hematologic/Lymphatic: Denies easy bleeding, easy bruising or lymphadenopathy Allergic/Immunologic Allergic/Immunologic ED: Denies mouth swelling, tongue swelling or urticaria EXAM Physical Exam Narrative Exam Narrative: 64-year-old female vital signs are stable afebrile. Sitting upright in bed. No acute distress. States she was treated with nausea medication by the squad and is no longer nauseated. H EENT exam pupils round reactive light. No trauma. Moist mucous membranes. Neck nontender no JVD. No lymphadenopathy. Lungs clear to auscultation bilaterally. Heart regular rhythm rate about 110 no murmur. Chest wall and ribs nontender. Abdomen soft mildly distended. Ascites. No peritoneal signs. Mild epigastric tenderness. No rebound guarding rigidity. No hernia or mass. No obstruction. Moving all 4 extremities. She has trace edema both lower extremities equal symmetrical. Neurologically she is awake alert. Answer questions following commands. Back nontender. Const Vital Signs: 08/05/24 19:20 08/05/24 19:22 08/05/24 20:22 Temperature 97.7 F L 97.7 F L 97.7 F L Temperature Source Oral Oral Oral Pulse Rate 114 H 114 H 114 H Respiratory Rate 12 17 28 H Blood Pressure 115/78 115/78 105/64 Blood Pressure Mean 90 90 77 Pulse Ox 97 98 95 Oxygen Delivery Method Nasal Cannula Room Air Room Air Oxygen Flow Rate (L/min) 3 08/05/24 21:30 08/05/24 21:45 08/05/24 22:30 Temperature Temperature Source Pulse Rate 115 H 115 H 95 Respiratory Rate 12 13 15 Blood Pressure 106/64 104/65 80/53 L Blood Pressure Mean 77 78 63 Pulse Ox 96 94 Oxygen Delivery Method Oxygen Flow Rate (L/min) 08/05/24 22:45 Temperature Temperature Source Pulse Rate 121 H Respiratory Rate 12 Blood Pressure 107/74 Blood Pressure Mean 86 Pulse Ox 95 Oxygen Delivery Method Nasal Cannula Oxygen Flow Rate (L/min) 3 Positive well developed; Negative for cachectic, contractures or unkempt General Appearance ED: well developed and NAD; Negative for unkempt, cachectic, contractures or pallor Nutritional Appearance: Negative for cachectic HEENT Reports moist mucous membranes normocephalic and atraumatic Eyes PERRL and EOMs intact bilaterally General Eye ED: Negative for pale conjunctiva or scleral icterus Neck no lymphadenopathy, supple and no JVD General: Negative for tenderness Resp normal respiratory effort and clear to auscultation bilaterally Cardio regular rhythm, S1 normal heart sound, S2 normal heart sound and no murmurs; Negative for regular rate Rate: tachycardic GI non-tender, non-distended and no masses Palpation: soft and tender; Negative for guarding, rigid, hernia, mass, pulsatile mass or rebound tenderness present Back/Spine no CVA tenderness General Back: Negative for CVA tenderness Cervical Spine: Negative for cervical spine tenderness Thoracic Spine / Upper Back: Negative for thoracic spinal tenderness Lumbar Spine / Lower Back: Negative for lumbar spinal tenderness Extremity full ROM Extremity Narrative: Trace edema bilateral lower extremities equal and symmetrical. General Extremety ED: Yes edema; Negative for tenderness General Extremity: edema Neuro CN's II-XII intact bilaterally and moves all extremities Sensorium / Orientation: alert, oriented to person, oriented to place and oriented to time; Negative for orientation impaired, confused or lethargic Motor Exam: strength 5/5 throughout Psych mental status grossly normal and thought process normal Appearance: Negative for unkempt Mood & Affect: Negative for depressed, anxious or tearful Skin no wounds General Skin Exam: Negative for jaundice or pallor Lesions: no lesions Rashes: no rashes MDM MDM MDM Narrative Medical decision making narrative: 64-year-old female with nausea vomiting diarrhea may have viral gastroenteritis. She also has a history of liver cirrhosis and prior pancreatitis. She was treated with Zofran by the squad. Says she currently does not need anything for nausea or pain. CAT scan and labs are pending. A liter normal saline. Multiple repeat exams most recent at 10:50 PM. Patient's had persistent nausea. She is thrown up here. I think this is a viral gastroenteritis. I also believe she has a new onset A-fib. I looked at multiple prior EKGs she has never been in A-fib before. I discussed with the patient and she does not believe she has ever been told that she had a history of A-fib. She will be given a second liter normal saline. IV Cardizem. I will speak to the hospitalist about admission. Urine culture will be sent. CAT scan is chronic findings. The left abdominal wall is edematous there is no cellulitis. Is not tender. Same area that they did the paracentesis and earlier today. History & Record Review Discussion w/independent historian: Patient Additional record(s) reviewed:: Prior inpatient record, Prior outpatient record, Prior ED visit and Prior labs Lab Data Attestation: I reviewed the patient's lab results. Lab results narrative: CBC shows a white count of 6. H&H 11.6 and 34 which is her baseline anemia. Platelets 178. Electrolytes show sodium 135. Potassium 2.9. Normal gap of 8. BUN and creatinine 10 and 0.6. Glucose 115. Liver enzymes show a total bilirubin 2.6. Alkaline phosphatase 144. Lipase of 11. Troponin 12. Labs are consistent with prior. Urinalysis shows 5-10 white cells. Positive nitrates and 2+ bacteria. Consistent with prior. Labs: Laboratory Results - last 24 hr 08/05/24 08/05/24 20:18 21:09 WBC 6.2 RBC 3.59 L Hgb 11.6 L Hct 34.0 L MCV 94.7 MCH 32.3 H MCHC 34.1 RDW Std Deviation 48.3 H RDW Coeff of Laxmi 13.8 Plt Count 178 MPV 10.8 Immature Gran % (Auto) 0.300 Neut % (Auto) 55.4 Lymph % (Auto) 29.9 Morris % (Auto) 12.5 H Eos % (Auto) 1.6 Baso % (Auto) 0.3 Absolute Neuts (auto) 3.4 Absolute Lymphs (auto) 1.86 Nucleated RBC % 0 Sodium 135 L Potassium 2.9 L Chloride 97 L Carbon Dioxide 30.0 Anion Gap 8 BUN 10 Creatinine 0.69 Estim Creat Clear Calc 69.70 Est GFR (MDRD) Af Amer 110 Est GFR (MDRD) Non-Af 91 BUN/Creatinine Ratio 14.5 Glucose 115 H Calcium 8.1 L Total Bilirubin 2.60 H AST 49 H ALT 22 Alkaline Phosphatase 144 H Troponin I High Sens 12 Total Protein 6.4 Albumin 1.9 L Globulin 4.5 H Albumin/Globulin Ratio 0.4 L Lipase 11 L Urine Color Yellow Urine Clarity Sl. Cloudy Urine pH 8.0 Ur Specific Rarden 1.015 Urine Protein Negative Urine Glucose (UA) Normal Urine Ketones Negative Urine Occult Blood 10 H Urine Nitrite Positive H Urine Bilirubin Negative Urine Urobilinogen Normal Ur Leukocyte Esterase 500 H Urine RBC 0 SEEN Urine WBC 5-10 SEEN Ur Squamous Epith Cells 0 SEEN Amorphous Sediment 2+ Urine Bacteria 3+ Urine Mucus 0 SEEN Radiography Diagnostic Testing: Clinical Impression(s) from Imaging Studies Abdomen/Pelvis CT 08/05/24 19:46 IMPRESSION: Extraperitoneal fluid collection along the left lateral abdominal wall, dimensions as above. Adjacent subcutaneous induration may be edema or cellulitis. Probable enteritis versus partial small bowel obstruction. Bilateral pleural effusions with adjacent consolidations, pneumonia versus atelectasis. Electronically Signed: Jeramy Davies MD at 20:37 EST Reading Location ID and State: [facility] / [place] Tel , Service support , Rhythm Strip Rhythm Strip: A-fib Rate: 114 Ectopy: None EKG Initial EKG: Attestation: I personally reviewed and interpreted this EKG as follows: Interpretation: Atrial Fibrillation Comments: A-fib RVR rate of 114 no acute signs of PR or ischemia. Discharge Plan Dx/Rx/DC Orders Clinical Impression: Viral gastroenteritis, Diarrhea, Vomiting, Atrial fibrillation, new onset, History of cirrhosis, History of ascites, Acute hypokalemia Disposition Disposition: Acute Care Hospital [facility]
[2024-08-05] MEDS: 0.9% Normal Saline (1000mL) 1,000 ML 999 ML IV ×2 (19:54→23:27)
--- NOTE | 2024-08-05 20:02 | EKG12_ITS ---
Test Reason : DYSRHYTHMIA Blood Pressure : */* mmHG Vent. Rate : 114 BPM Atrial Rate : * BPM P-R Int : * ms QRS Dur : 70 ms QT Int : 328 ms P-R-T Axes : * 67 245 degrees QTcB Int : 452 ms Atrial fibrillation with rapid ventricular response Low voltage QRS ST & T wave abnormality, consider inferolateral ischemia Abnormal ECG Confirmed by MARI THOMAS, JOSE ([id number]), order editor LEAH SRINIVASAN ([id number]) on 08/10/2024 7:15:49 AM Referred By: Confirmed By: JOSE GUERRA MD
[2024-08-05 20:29] LABS: Absolute Lymphocyte Count 1.86 X10^3/uL (0.83-4.51); Absolute Neutrophil Count 3.4 X10^3/uL (2.0-7.7); Basophil# 0.02 X10^3/uL; Basophil% 0.3 % (0-1); Eosinophils% 1.6 % (0-5); Hemoglobin 11.6 g/dL (12.0-15.0); Lymphocyte # 1.86 X10^3/ul (0.83-4.51); Lymphocyte % 29.9 % (19-41); Mean Corp Hgb Conc 34.1 g/dL (32-36); Mean Corpuscular Hgb 32.3 pg (27.0-32.0); Mean Corpuscular Volume 94.7 fL (81-99); Mean Platelet Vol. 10.8 fl (6.2-12.0); Monocyte# 0.78 X10^3/uL; Monocyte% 12.5 % (0-10); NRBC Flagged by Analyzer 0 % (0-5); Neutrophil # 3.44 X10^3/uL (2.7-7.7); Neutrophil % 55.4 % (47-70); Platelet Count 178 K/mm3 (150-450); RBC Distribution Width CV 13.8 % (11.6-14.6); RBC Distribution Width SD 48.3 fl (35.1-43.9); Red Blood Count 3.59 M/mm3 (4.2-5.4); White Blood Count 6.2 K/mm3 (4.4-11.0)
[2024-08-05 20:50] LABS: ALB/GLOB Ratio 0.4 RATIO (0.9-2.4); AST(SGOT) 49 U/L (15-37); Alanine Aminotransfer ALT/SGPT 22 U/L (13-56); Albumin, Serum 1.9 g/dL (3.2-5.0); Alkaline Phosphatase 144 U/L (45-117); Anion Gap 8 (5-15); BUN 10 mg/dL (7-18); BUN/Creat Ratio 14.5 RATIO (10-20); Calcium,Total 8.1 mg/dL (8.5-10.1); Chloride 97 mmol/L (98-107); Creatinine, Serum 0.69 mg/dL (0.55-1.02); EST Glomerular Filtration Rate 91 mL/min (>60); Est Glom Filt Rate - Afr Amer 110 mL/min (>60); Globulin 4.5 g/dL (2.2-4.2); Glucose 115 mg/dL (74-106); Lipase 11 U/L (13-75); Potassium 2.9 mmol/L (3.5-5.1); Protein, Total 6.4 g/dL (6.4-8.2); Sodium Level 135 mmol/L (136-145); Troponin-I HS 12 pg/mL (3.0-54.0)
[2024-08-05 21:18] LABS: Mucous, Urine 0 SEEN /hpf (<or=2+); Red Blood Cells-Urine 0 SEEN /hpf (0-5); Squamous Epithelial Cells - UA 0 SEEN /hpf (5-10)
[2024-08-05 21:23] LABS: Color, Urine Yellow (Yellow); Glucose, Dipstick Normal (Normal); Ketone-Dipstick Negative (Negative); Leukocyte Esterase-Dipstick 500 /ul (Negative); Nitrite-Dipstick Positive (Negative); Occult Blood-Urine 10 /ul (Negative); Protein-Dipstick Negative (Negative); Specific Gravity, Urine 1.015 (1.002-1.030); Urine Bilirubin Dipstick Negative (Negative); Urine Clarity Sl. Cloudy (Clear); Urine Urobilinogen Normal (Normal)
[2024-08-05 21:34] LABS: Amorphous Sediment 2+; Bacteria 3+ /hpf (None Seen); White Blood Cells 5-10 SEEN /hpf (0-5)
[2024-08-05] MEDS: Morphine 4 MG/ML Syringe IV (22:42)
[2024-08-05] MEDS: Ondansetron 4 MG/2 ML Vial IV (22:42)
--- NOTE | 2024-08-05 23:03 | PCM.HP.STD ---
HPI - General General Date of Admission: 08/05/24 Date of Service: 08/05/24 Chief Complaint: N/V/D HPI Narrative The patient is a 64 y/o F w/ PMHx: Chronic anemia, Chronic pain syndrome (neck and back), Anxiety and Depression/Bipolar type II disorder, Former tobacco use, Alcohol-related cirrhotic liver disease with chronic pancreatitis/alcoholic hepatitis, Former EtOH abuse who presents to the [facility] ED on 08/05/24 with history of onset nausea and vomiting with epic gastric and abdominal diffuse cramping which has been persistent as well as loose stools reportedly having had an ultrasound-guided paracentesis on day of presentation which went well with removal of a decent mount of fluids but she is uncertain exactly the full amount and following this while she was eating dinner at approximately 6 PM she had onset of symptoms including nausea, emesis, diarrhea as well as the epigastric and diffuse abdominal cramping prompting eventual ED evaluation. From review of records with most recent GI visit 07/30/2024 patient does have chronic diarrhea/loose stools felt secondary to exocrine pancreatic insufficiency versus chronic pancreatitis with de-escalation off ursodiol, Creon supplementation/Zenpep 1 pill p.o. 3 times daily with meals. Workup in the ED included T97.7, heart 114, BP 105/64, respiratory rate 28, 95% on room air, CBC with WBC 6.2, hemoglobin 11.6, MCV 94.7, platelet 178 without marked shift, CMP with sodium 135, potassium 2.9, chloride 97, glucose 115, calcium 8.1, T. bili 2.60, AST/LT 49/22, alk phos 144, troponin 12, lipase 11, CT abdomen pelvis with extraperitoneal fluid collection along the left lateral abdominal wall measuring 22 cm in craniocaudal extent and up to a maximum thickness of 2 cm, adjacent subcutaneous induration possibly edema versus cellulitis, probable enteritis versus partial small bowel obstruction, bilateral pleural effusions with adjacent consolidations, pneumonia versus atelectasis, EKG with concern for new onset atrial fibrillation with RVR with no acute evidence of ischemia. In the ED patient ministered potassium 40 mEq P.o. x 1, potassium 20 mill equivalent IV x 1, Zofran 4 mg IV x 1, morphine 4 mg IV x 1, diltiazem 20 mg IV bolus x 1 as well as 2 L normal saline. [facility] Medical History Polycythemia Alcoholic hepatitis Pressure sore on buttocks Alcohol abuse Generalized weakness Cystocele History of vertebral compression fracture Debility Venous thromboembolism (VTE) prophylaxis provided within 24 hours of arrival Vertebral compression fracture Intractable low back pain Abnormal CT of the chest Anxiety Chronic back pain Osteoporosis Arthritis Compression fracture of thoracic spine, non-traumatic Pancreatitis Bipolar II disorder Alcohol use disorder, moderate, dependence Hypertension Urinary urgency Marijuana use Shortness of breath on exertion Leg cramps Seborrheic dermatitis Neck pain Bowel incontinence Urinary incontinence Alcoholic pancreatitis Scalp psoriasis Debility Wears contact lenses Anxiety Walker as ambulation aid Injury of head and neck Difficulty swallowing Non-smoker Pain at injection site Compression fracture Depression Alcohol use Osteoporosis Scoliosis Home Medications ?Medication ?Instructions ?Recorded ?Last Taken ?Type Lift Chair #1 ea 12/08/20 Unknown Rx diaper,brief,adult,disposable #200 ea 09/22/23 Unknown Rx (Adjustable Underwear) cholecalciferol (vitamin D3) 50 25 mcg PO DAILY 12/29/23 Unknown History mcg (2,000 unit) capsule thiamine HCl (vitamin B1) 100 mg 100 mg PO DAILY #90 tabs 12/30/23 Unknown Rx tablet aripiprazole 10 mg tablet 10 mg PO DAILY #30 tabs 03/18/24 Unknown Rx buspirone 10 mg tablet 10 mg PO BID #60 tabs 03/18/24 Unknown Rx ursodiol 250 mg tablet 250 mg PO BID #60 TABLETS 04/13/24 Unknown Rx multivitamin (One Daily 1 tab PO DAILY #90 tabs 06/02/24 Unknown Rx Multivitamin tablet) carvedilol 3.125 mg tablet 3.125 mg PO BID #0 tabs 06/15/24 Unknown Rx folic acid 1 mg tablet 1 mg PO BREAKFAST #0 tabs 06/15/24 Unknown Rx menthol 0.44 %-zinc oxide 20.6 % 1 applic topical BID #0 grams 06/15/24 Unknown Rx topical ointment (Calmoseptine) midodrine 5 mg tablet 10 mg (2 x 5 mg) PO TIDCM #0 tabs 06/15/24 Unknown Rx nystatin 100,000 unit/gram topical 1 applic topical BID #0 grams 06/15/24 Unknown Rx powder (Nyamyc) oxycodone 5 mg tablet 5 mg PO Q6H PRN PRN Pain Score 06/15/24 Unknown Rx 1-10 2 days #5 tabs trazodone 100 mg tablet 100 mg PO QHS PRN PRN Insomnia #0 06/15/24 Unknown Rx tabs furosemide 40 mg tablet 40 mg PO BID 07/30/24 Unknown History [id number] 1 cap PO TID 07/30/24 Unknown History 24,000-76,000-120,000 unit capsule,delayed rel (Creon) ondansetron HCl 4 mg tablet 4 mg PO Q8H PRN nausea and vomiting 07/30/24 Unknown History potassium chloride 20 mEq 20 meq PO BID 07/30/24 Unknown History tablet,extended release spironolactone 25 mg tablet 25 mg PO DAILY 08/05/24 Unknown History (Aldactone) Allergy/AdvReac Type Severity Reaction Status Date / Time No Known Allergies Allergy Verified 08/05/24 19:20 Family History (Updated 08/05/24 @ 23:[address] Kelly Rowland MD) Mother Heart disease Osteoporosis Father Lung fibrosis Surgical History History of hip replacement S/P tubal ligation History of esophagogastroduodenoscopy (EGD) Hx of kyphoplasty History of back surgery History of wisdom tooth extraction Hx of total hip arthroplasty S/P kyphoplasty History of tubal ligation Social History (Updated 08/05/24 @ 23:[address] Kelly Rowland MD) household members: none housing: long-term current occupational status: disabled Smoking Status: Former smoker Tobacco: How many years used: 2 Electronic Cigarette Use: not used how long ago did patient quit smoking: Smoked minimally age [age]. second hand exposure: No alcohol intake: former details: Sober since 06/04/24. substance use type: does not use what type of physical activity do you participate in: none seatbelt use: always do you feel safe at home: Yes additional social history: single ROS ROS Narrative Admission Review of Systems: CONSTITUTIONAL: No weight loss, fever, chills, + weakness or fatigue. HEENT: Eyes: No visual loss, blurred vision, double vision or yellow sclerae. Ears, Nose, Throat: No hearing loss, sneezing, congestion, runny nose or sore throat. SKIN: No rash or itching, lesions, wounds. CARDIOVASCULAR: No chest pain, chest pressure or chest discomfort, palpitations, edema, orthopnea, syncopal events. RESPIRATORY: No shortness of breath, cough or sputum, wheezing, hemoptysis. GASTROINTESTINAL: + anorexia, nausea, vomiting, diarrhea, abdominal pain. No melena, BRBPR. GENITOURINARY: No dysuria, frequency, urgency or retention. NEUROLOGICAL: No headache, dizziness, syncope, paralysis, ataxia, numbness or tingling in the extremities, focal weakness, change in bowel or bladder control, seizure. MUSCULOSKELETAL: + muscle, back pain, joint pain or stiffness. HEMATOLOGIC: + Chronic anemia, easy bleeding/bruising. LYMPHATICS: No enlarged nodes. No history of splenectomy. PSYCHIATRIC: + History of anxiety and depression. ENDOCRINOLOGIC: No reports of sweating, cold or heat intolerance. No polyuria or polydipsia. ALLERGIES: No history of asthma, hives, eczema or rhinitis. Vital Signs Vital Signs Vital Signs: 08/05/24 19:20 08/05/24 19:22 08/05/24 20:22 Temperature 97.7 F L 97.7 F L 97.7 F L Temperature Source Oral Oral Oral Pulse Rate 114 H 114 H 114 H Respiratory Rate 12 17 28 H Blood Pressure 115/78 115/78 105/64 Blood Pressure Mean 90 90 77 Pulse Ox 97 98 95 Oxygen Delivery Method Nasal Cannula Room Air Room Air Oxygen Flow Rate (L/min) 3 08/05/24 21:30 08/05/24 21:45 08/05/24 22:30 Temperature Temperature Source Pulse Rate 115 H 115 H 95 Respiratory Rate 12 13 15 Blood Pressure 106/64 104/65 80/53 L Blood Pressure Mean 77 78 63 Pulse Ox 96 94 Oxygen Delivery Method Oxygen Flow Rate (L/min) 08/05/24 22:45 Temperature Temperature Source Pulse Rate 121 H Respiratory Rate 12 Blood Pressure 107/74 Blood Pressure Mean 86 Pulse Ox 95 Oxygen Delivery Method Nasal Cannula Oxygen Flow Rate (L/min) 3 Weight Weight: 181 lb 7.047 oz Body Mass Index (BMI) 33.2 Physical Exam Narrative Physical Examination: General: Awake, alert, oriented x [address], month, year, remains cooperative, laying in the bed, fatigued but notes feeling improved following ED medications. Skin: Normal color, normal turgor, no icterus, no cyanosis except occasional stage ecchymoses, abrasion. HEENT: AT/NC, EOMI, appears mildly exophthalmos, PERRLA, dry MM, no carotid bruits or JVD noted. Lungs: Mild diminished, greater bases, proper effort, no rales, ronchi or wheezing. Heart: Rate improved, regular; no gallop, rub audible. Abdomen: Soft, mild generalized discomfort to palpation but no rebound or guarding, mildly to moderately distended, hyperactive BS, difficult to appreciate HSM given discomfort and distention. Extremities: No cyanosis, no clubbing, mild distal gallegos to ankle chronic 1+ edema. Neurological: Patient awake, alert, oriented as noted, cognitive function intact; pupils equally reactive to light and accommodation, cranial nerves grossly normal, moving all 4 extremities, no focal deficits, strength moderately to severely globally decreased Psychiatric: Affect appears fatigued, no acute evidence of depressive or anxiety feelings but does have underlying history. Results Lab / Micro Data 08/05/24 20:18 08/05/24 20:18 Labs: Laboratory Results - last 24 hr 08/05/24 20:18: WBC 6.2, RBC 3.59 L, Hgb 11.6 L, Hct 34.0 L, MCV 94.7, MCH 32.3 H, MCHC 34.1, RDW Std Deviation 48.3 H, RDW Coeff of Laxmi 13.8, Plt Count 178, MPV 10.8, Immature Gran % (Auto) 0.300, Neut % (Auto) 55.4, Lymph % (Auto) 29.9, [place] % (Auto) 12.5 H, Eos % (Auto) 1.6, Baso % (Auto) 0.3, Absolute Neuts (auto) 3.4, Absolute Lymphs (auto) 1.86, Nucleated RBC % 0, Sodium 135 L, Potassium 2.9 L, Chloride 97 L, Carbon Dioxide 30.0, Anion Gap 8, BUN 10, Creatinine 0.69, Estim Creat Clear Calc 69.70, Est GFR (MDRD) Af Amer 110, Est GFR (MDRD) Non-Af 91, BUN/Creatinine Ratio 14.5, Glucose 115 H, Calcium 8.1 L, Total Bilirubin 2.60 H, AST 49 H, ALT 22, Alkaline Phosphatase 144 H, Troponin I High Sens 12, Total Protein 6.4, Albumin 1.9 L, Globulin 4.5 H, Albumin/Globulin Ratio 0.4 L, Lipase 11 L 08/05/24 21:09: Urine Color Yellow, Urine Clarity Sl. Cloudy, Urine pH 8.0, Ur Specific [place] 1.015, Urine Protein Negative, Urine Glucose (UA) Normal, Urine Ketones Negative, Urine Occult Blood 10 H, Urine Nitrite Positive H, Urine Bilirubin Negative, Urine Urobilinogen Normal, Ur Leukocyte Esterase 500 H, Urine RBC 0 SEEN, Urine WBC 5-10 SEEN, Ur Squamous Epith Cells 0 SEEN, Amorphous Sediment 2+, Urine Bacteria 3+, Urine Mucus 0 SEEN Rhythm Strip Rhythm Strip: A-fib Rate: 114 Ectopy: None Imaging Radiology Impression Abdomen/Pelvis CT 08/05/24 19:46 IMPRESSION: Extraperitoneal fluid collection along the left lateral abdominal wall, dimensions as above. Adjacent subcutaneous induration may be edema or cellulitis. Probable enteritis versus partial small bowel obstruction. Bilateral pleural effusions with adjacent consolidations, pneumonia versus atelectasis. Electronically Signed: Jeramy Davies MD at 20:37 EST Reading Location ID and State: [facility] / [place] Tel , Service support , Assessment & Plan Assessment/Plan (1) Atrial fibrillation, new onset: (2) Viral gastroenteritis: PLAN: Plan The patient is a 64 y/o F w/ PMHx: Chronic anemia, Chronic pain syndrome (neck and back), Anxiety and Depression/Bipolar type II disorder, Former tobacco use, Alcohol-related cirrhotic liver disease with chronic pancreatitis/alcoholic hepatitis, Former EtOH abuse who presents to the [facility] ED on 08/05/24 with history of onset nausea and vomiting with epic gastric and abdominal diffuse cramping which has been persistent as well as loose stools reportedly having had an ultrasound-guided paracentesis on day of presentation which went well with removal of a decent mount of fluids but she is uncertain exactly the full amount and following this while she was eating dinner at approximately 6 PM she had onset of symptoms including nausea, emesis, diarrhea as well as the epigastric and diffuse abdominal cramping prompting eventual ED evaluation. #1. N/V/D, Possible Acute Gastroenteritis, possibly viral; however, UA notable thus could be UTI associated: Will admit to PCU given #2, will allow clears until clinically improving, will maintain on IV PPI, will obtain c diff, stool cx, will have as needed anti-emetics, pain regimen PRN. PT/OT/case management consulted for discharge planning with once clinically improved and appropriate transition back to custodial facility. #2. Paroxsymal atrial fibrillation w/ RVR: EKG in ED w/ atrial fibrillation w/ RVR. Patient administered cardizem bolus x 1 in ED which had to be abated early secondary to hypotension related but improved with very judicious IV fluids. Will maintain on telemetry, obtain cardiac enzyme serial set, obtain magnesium level, obtain TSH level. Will defer echo as patient and friend were present note that she had an echocardiogram performed 08/05/2024 at the [facility]. Will transition her BB to metoprolol with hold parameters especially given her current blood pressure but rate did improve with Cardizem of note. Will dose with therapeutic lovenox but loathe to start long-term anticoagulation given history and fall risk. #3. Possible Acute Urinary Tract Infection: Certainly could be etiology for nausea, emesis and diarrhea but also gastroenteritis is a possibility as well, UA upon ED evaluation remarkable, pending UCx, continue judicious IVFs, monitor I/Os, continue IV Rocephin w/ de-escalation if urine culture unremarkable versus transition as able pending sensitivities and speciation. #4. Hyponatremia, hypochloremia, suspected hypovolemic component given GI losses: Admission CMP with sodium 135, chloride 97, will continue judicious hydration given underlying cirrhotic disease with repeat CMP in AM. Holding diuretics. #5. Hypokalemia: Admission K+ 2.9, magnesium level requested, supplementation given, repeat level in AM. #6. Alcohol-related cirrhotic liver disease with chronic pancreatitis/alcoholic hepatitis: Encourage continued sobriety #7. Chronic normocytic anemia: Admission hemoglobin 11.6, MCV 94.7, baseline hemoglobin similar -12, continue to trend. #8. Chronic pain syndrome (neck and back): Will very cautiously continue patient home oxycodone regimen hold parameters for sedation, encourage offloading, PT/OT/case management consulted for discharge planning. #9. Anxiety and Depression/Bipolar type II disorder: We will continue patient aripiprazole, BuSpar home regimen as well as nightly trazodone with hold parameters for sedation. #10. Former tobacco use: Encourage continued cigarette tobacco cessation, remote history. #11. History EtOH abuse: Notes sober since 06/04/2024, encourage continued sobriety, maintain on vitamin supplementation. #12. DVT Prophylaxis: Lovenox. #13. CODE status: Patient EDILIA is not in place but she notes that she believes she did a living well previously while hospitalized. Lengthy discussion regarding her son who lives in [facility] however he is very difficult to get a hold of prompting her to decide that her friend who is present who is also an RN retired would be her medical decision-maker if necessary. Discussed CODE status at length including difference between FULL code, DNR-CCA and DNR-CC status. Following discussions about the differences in these status, requested DNR-CCA, no intubation. In the past patient had been full code but she notes recently she decided to transition. Advanced Care Planning Face to Face Time: 16 minutes. Charges/Coding Visit Charges Inpatient E&M: 57159 Init Hosp L3 Procedures Hospitalists Procedures: 13252 Advncd Care Plan 30 Min
--- NOTE | 2024-08-05 23:12 | NURSING ---
Pt's BP 92/59. Okay to give cardizem per Dr. Munoz.
[2024-08-05] MEDS: dilTIAZem 25 MG/5 ML Vial 20 MG IV BOLUS (23:13)
[2024-08-05] MEDS: Potassium Chloride 10mEq/100mL 10 MEQ/100 ML IV.SOLN. 100 MEQ IV BOLUS (23:26)
[2024-08-06] VITALS (9 sets, daily range): BP systolic 91–117; BP diastolic 62–79; PULSE 85–100; RESP 14–18; TEMP 35.8–36.6; O2SAT 94–96; BMI 29.9; BMI 30.9
[2024-08-06 00:12] LABS: Magnesium 1.5 mg/dL (1.6-2.6); Phosphorus 2.9 mg/dL (2.5-4.9)
[2024-08-06] MEDS: Potassium Chloride 10mEq/100mL 10 MEQ/100 ML IV.SOLN. 100 MEQ IV BOLUS (00:37)
[2024-08-06] MEDS: 0.9% Normal Saline (1000mL) 1,000 ML 100 ML IV (00:38)
[2024-08-06] MEDS: Ceftriaxone 1 GM/50 ML BAG IV (01:02)
[2024-08-06 01:18] LABS: Procalcitonin 0.13 ng/mL (0.00-0.09)
[2024-08-06] MEDS: Midodrine HCl 5 MG Tablet 10 MG PO ×4 (01:24→17:31)
[2024-08-06] MEDS: Enoxaparin 80 MG/0.8 ML Syringe SC ×3 (01:25→21:46)
[2024-08-06] MEDS: Metoprolol Tartrate 25 MG Tablet 12.5 MG PO ×3 (01:25→21:46)
[2024-08-06] MEDS: Pantoprazole Sodium 40 MG in 0.9% Normal Saline (100mL MB+) 100 ML 330 MG IV ×3 (01:33→21:35)
[2024-08-06 06:55] LABS: Absolute Lymphocyte Count 2.35 X10^3/uL (0.83-4.51); Absolute Neutrophil Count 5.1 X10^3/uL (2.0-7.7); Basophil# 0.03 X10^3/uL; Basophil% 0.4 % (0-1); Eosinophil# 0.17 X10^3/uL; Hemoglobin 12.2 g/dL (12.0-15.0); Lymphocyte # 2.35 X10^3/ul (0.83-4.51); Lymphocyte % 27.7 % (19-41); Mean Corp Hgb Conc 33.9 g/dL (32-36); Mean Corpuscular Hgb 32.4 pg (27.0-32.0); Mean Corpuscular Volume 95.5 fL (81-99); Mean Platelet Vol. 10.8 fl (6.2-12.0); Monocyte# 0.81 X10^3/uL; Monocyte% 9.6 % (0-10); NRBC Flagged by Analyzer 0 % (0-5); Neutrophil # 5.08 X10^3/uL (2.7-7.7); Neutrophil % 59.9 % (47-70); Platelet Count 219 K/mm3 (150-450); RBC Distribution Width CV 13.9 % (11.6-14.6); RBC Distribution Width SD 48.6 fl (35.1-43.9); Red Blood Count 3.77 M/mm3 (4.2-5.4); White Blood Count 8.5 K/mm3 (4.4-11.0)
--- NOTE | 2024-08-06 07:48 | PN.HOSP_ITS ---
Reason for Visit Reason for Visit: Diagnoses Viral intestinal infection, unspecified (08/05/24) Unspecified atrial fibrillation (08/05/24) Subjective Subjective No further N/V. Abdomen less disteded. Objective Data Objective Data Vital Signs: Vital Signs Temp Pulse Resp BP Pulse Ox O2 Del Method O2 Flow Rate 35.8 C L 85 18 91/63 95 Nasal Cannula 3 08/06/24 04:01 08/06/24 04:01 08/06/24 04:01 08/06/24 04:01 08/06/24 04:01 08/06/24 04:01 08/06/24 04:01 Oxygen Flow Rate (L/min) 3 Oxygen Delivery Method Nasal Cannula Weight: 76.66 kg Body Mass Index (BMI) 30.9 Intake & Output: Intake and Output for Last 24 Hours 08/04/24 08/05/24 08/06/24 23:59 23:59 23:59 Intake Total 1000 / 1000 1075.95 / 1075.95 Balance 1000 / 1000 1075.95 / 1075.95 Lab / Micro Data 08/06/24 06:13 08/06/24 06:13 Labs: Laboratory Results - last 24 hr 08/05/24 20:18: WBC 6.2, RBC 3.59 L, Hgb 11.6 L, Hct 34.0 L, MCV 94.7, MCH 32.3 H, MCHC 34.1, RDW Std Deviation 48.3 H, RDW Coeff of Laxmi 13.8, Plt Count 178, MPV 10.8, Immature Gran % (Auto) 0.300, Neut % (Auto) 55.4, Lymph % (Auto) 29.9, [place] % (Auto) 12.5 H, Eos % (Auto) 1.6, Baso % (Auto) 0.3, Absolute Neuts (auto) 3.4, Absolute Lymphs (auto) 1.86, Nucleated RBC % 0, Sodium 135 L, Potassium 2.9 L, Chloride 97 L, Carbon Dioxide 30.0, Anion Gap 8, BUN 10, Creatinine 0.69, Estim Creat Clear Calc 69.70, Est GFR (MDRD) Af Amer 110, Est GFR (MDRD) Non-Af 91, BUN/Creatinine Ratio 14.5, Glucose 115 H, Calcium 8.1 L, Phosphorus 2.9, M agnesium 1.5 L, Total Bilirubin 2.60 H, AST 49 H, ALT 22, Alkaline Phosphatase 144 H, Troponin I High Sens 12, Total Protein 6.4, Albumin 1.9 L, Globulin 4.5 H , Albumin/Globulin Ratio 0.4 L, Lipase 11 L 08/05/24 21:09: Urine Color Yellow, Urine Clarity Sl. Cloudy, Urine pH 8.0, Ur Specific [place] 1.015, Urine Protein Negative, Urine Glucose (UA) Normal, Urine Ketones Negative, Urine Occult Blood 10 H, Urine Nitrite Positive H, Urine Bilirubin Negative, Urine Urobilinogen Normal, Ur Leukocyte Esterase 500 H, Urine RBC 0 SEEN, Urine WBC 5-10 SEEN, Ur Squamous Epith Cells 0 SEEN, Amorphous Sediment 2+, Urine Bacteria 3+, Urine Mucus 0 SEEN 08/05/24 23:59: Procalcitonin 0.13 H 08/06/24 06:13: WBC 8.5, RBC 3.77 L, Hgb 12.2, Hct 36.0 L, MCV 95.5, MCH 32.4 H, MCHC 33.9, RDW Std Deviation 48.6 H, RDW Coeff of Laxmi 13.9, Plt Count 219, MPV 10.8, Immature Gran % (Auto) 0.400, Neut % (Auto) 59.9, Lymph % (Auto) 27.7, [place] % (Auto) 9.6, Eos % (Auto) 2.0, Baso % (Auto) 0.4, Absolute Neuts (auto) 5.1, Absolute Lymphs (auto) 2.35, Nucleated RBC % 0 Radiography Diagnostic Testing: Radiology Impression Abdomen/Pelvis CT 08/05/24 19:46 IMPRESSION: Extraperitoneal fluid collection along the left lateral abdominal wall, dimensions as above. Adjacent subcutaneous induration may be edema or cellulitis. Probable enteritis versus partial small bowel obstruction. Bilateral pleural effusions with adjacent consolidations, pneumonia versus atelectasis. Electronically Signed: Jeramy Davies MD at 20:37 EST , Rhythm Strip Rhythm Strip: A-fib Rate: 114 Ectopy: None Physical Exam Const alert and no apparent distress HEENT head/scalp atraumatic and moist oral mucous membranes Resp normal respiratory effort, no retractions, no use of accessory muscles and clear to auscultation bilaterally Cardio regular rate, regular rhythm, S1 normal heart sound and S2 normal heart sound GI normal to inspection, nondistended, normoactive bowel sounds and soft to palpation GI Narrative: distended. Extremity normal to inspection Assessment & Plan Assessment/Plan (1) Atrial fibrillation, new onset: (2) Viral gastroenteritis: PLAN: Plan Gastroenteritis * v SBO Left side abdominal wall fluid collection * described as simple by radiology. I suspect it likely ascites as pt had a left side paracentesis around 0915 on 08/05, then the follow up CT at 2036 showed that finding. * monitor for now. Abnormal UA. * postive nitrates and 500 LE, 3+ bactereia, but only 5-10 WBCs * UTI ruled out. DC CTX. Hyponatremia/Hypokalemia: * 2/2 GI losses. Improved * monitor. Chronic conditions: * alcoholic cirrhosis: had paracentesis same day as admission. * chronic normocytic anemia: Admission hemoglobin 11.6, MCV 94.7, baseline hemoglobin similar 11-12, continue to trend. * Chronic pain syndrome (neck and back): Will very cautiously continue patient home oxycodone regimen hold parameters for sedation, encourage offloading, PT/OT/case management consulted for discharge planning. * Anxiety and Depression/Bipolar type II disorder: We will continue patient aripiprazole, BuSpar home regimen as well as nightly trazodone with hold parameters for sedation. * Former tobacco use: Encourage continued cigarette tobacco cessation, remote history. * History EtOH abuse: Notes sober since 06/04/2024, encourage continued sobriety, maintain on vitamin supplementation. DVT Prophylaxis: Lovenox. Charges/Coding Visit Charges Inpatient E&M: 79439 Subs Hosp L2
[2024-08-06 07:57] LABS: ALB/GLOB Ratio 0.4 RATIO (0.9-2.4); AST(SGOT) 54 U/L (15-37); Alanine Aminotransfer ALT/SGPT 21 U/L (13-56); Albumin, Serum 1.9 g/dL (3.2-5.0); Alkaline Phosphatase 143 U/L (45-117); Anion Gap 9 (5-15); BUN 9 mg/dL (7-18); BUN/Creat Ratio 13.3 RATIO (10-20); Calcium,Total 7.9 mg/dL (8.5-10.1); Chloride 100 mmol/L (98-107); Creatinine, Serum 0.68 mg/dL (0.55-1.02); EST Glomerular Filtration Rate 93 mL/min (>60); Est Glom Filt Rate - Afr Amer 112 mL/min (>60); Estimated Creatinine Clearance 67.21 ml/min; Glucose 97 mg/dL (74-106); Potassium 3.6 mmol/L (3.5-5.1); Protein, Total 6.9 g/dL (6.4-8.2); Sodium Level 136 mmol/L (136-145); Thyroid Stim Hormone (TSH) 0.408 uIU/mL (0.358-3.740)
[2024-08-06] MEDS: busPIRone 5 MG Tablet 10 MG PO ×2 (09:06→21:45)
[2024-08-06] MEDS: Creon 24,000 unit DR Capsule 1 CAP PO (09:06)
[2024-08-06] MEDS: ARIPiprazole 10 MG Tablet PO (09:07)
[2024-08-06] MEDS: Folic Acid 1 MG Tablet PO (09:07)
[2024-08-06] MEDS: Potassium Chloride Oral Tablet 20 MEQ PO ×2 (09:07→21:44)
[2024-08-06] MEDS: Multivitamins,Therapeutic Tablet 1 TABLET PO (09:07)
[2024-08-06] MEDS: Thiamine Hydrochloride 100 MG Tablet PO (09:09)
--- NOTE | 2024-08-06 09:55 | CASEMGMT ---
Addendum entered by Mely Burk 08/06/24 10:09: Pt is a bedhold and no precert is needed. Mely Burk. DARSHAN Planning Asst. Original Note: Pt wishes to return to the [facility] at discharge. Updates sent to [facility] with note asking if precert will be needed. Awaiting response. Mely Burk DC Planning Asst.
--- NOTE | 2024-08-06 10:37 | CASEMGMT ---
[facility] notified that pt may return over the wknd. Phone/fax obtained. Green sheet and transport form placed in chart. Mely Burk DC Planning Asst.
[2024-08-06 11:56] LABS: Bedside Glucose 117 mg/dL (74-106)
--- NOTE | 2024-08-06 14:51 | CHAPLAIN ---
Type of Pastoral Visit _x__ Initial Visit ___ Follow-up Visit ___ On-call Visit ___ General Patient Visit ___ Spiritual Assessment ___ Family Conference ___ Bereavement ___ Rapid Response ___ Code Blue ___ Other (describe below) Pastoral Care Referral From _x__ Patient ___ Family ___ Nurse ___ Physician ___ Motor Analyst ___ Petroleum Blending Plant Operator ___ Other (describe below) Sacrament/Intervention _x__ Active listening ___ Anointing ___ Judaism ___ Bereavement ___ Communion _x__ Kayla exploration ___ ___ Life review _x__ Prayer ___ Reconciliation ___ Sacrament of Sick _x__ Supportive presence ___ Wedding ___ Other (describe below) Pastoral Comments patient had some specific scientology questions to ask of this rate examiner and she acknowledged her request for a visit; pt lives in an [facility] and has had 'a rate examiner' there make disturbing remarks to her about life after ; pt wants to explore what is right about what; pt is not certain of her own kayla understanding and asks for some insights and perspective; information is given to the patient and an offer to receive a Bible; pt declines need for a Bible at this time but continues to express her doubts and questions; pt is given sme possiblities about her need; pt is given scriptures and a prayer for further support; pt talks about her kayla community too; b
[2024-08-06] MEDS: Menthol/Lanolin/Calamine/Znox 113 GM Tube 1 APPLIC TOPICAL ×2 (17:31→21:43)
[2024-08-06] MEDS: 0.9% Saline Lock 10 ML Syringe IV (21:53)
[2024-08-07] VITALS (10 sets, daily range): BP systolic 87–108; BP diastolic 56–70; PULSE 80–113; RESP 16–18; TEMP 36.2–36.9; O2SAT 94–96; BMI 31.7
[2024-08-07 05:02] LABS: Absolute Lymphocyte Count 3.21 X10^3/uL (0.83-4.51); Absolute Neutrophil Count 2.5 X10^3/uL (2.0-7.7); Basophil# 0.04 X10^3/uL; Basophil% 0.6 % (0-1); Eosinophil# 0.32 X10^3/uL; Eosinophils% 4.6 % (0-5); Hematocrit 32.4 % (37-47); Hemoglobin 11.1 g/dL (12.0-15.0); Lymphocyte # 3.21 X10^3/ul (0.83-4.51); Lymphocyte % 46.4 % (19-41); Mean Corp Hgb Conc 34.3 g/dL (32-36); Mean Corpuscular Hgb 32.4 pg (27.0-32.0); Mean Corpuscular Volume 94.5 fL (81-99); Mean Platelet Vol. 10.2 fl (6.2-12.0); Monocyte# 0.85 X10^3/uL; Monocyte% 12.3 % (0-10); NRBC Flagged by Analyzer 0 % (0-5); Neutrophil # 2.49 X10^3/uL (2.7-7.7); Platelet Count 198 K/mm3 (150-450); RBC Distribution Width CV 14.1 % (11.6-14.6); RBC Distribution Width SD 48.8 fl (35.1-43.9); Red Blood Count 3.43 M/mm3 (4.2-5.4); White Blood Count 6.9 K/mm3 (4.4-11.0)
[2024-08-07 05:56] LABS: ALB/GLOB Ratio 0.4 RATIO (0.9-2.4); AST(SGOT) 49 U/L (15-37); Alanine Aminotransfer ALT/SGPT 22 U/L (13-56); Albumin, Serum 1.9 g/dL (3.2-5.0); Alkaline Phosphatase 135 U/L (45-117); Anion Gap 6 (5-15); BUN 8 mg/dL (7-18); BUN/Creat Ratio 13.4 RATIO (10-20); Calcium,Total 8.6 mg/dL (8.5-10.1); Chloride 100 mmol/L (98-107); EST Glomerular Filtration Rate 107 mL/min (>60); Est Glom Filt Rate - Afr Amer 129 mL/min (>60); Estimated Creatinine Clearance 68.11 ml/min; Globulin 4.4 g/dL (2.2-4.2); Glucose 100 mg/dL (74-106); Potassium 3.2 mmol/L (3.5-5.1); Protein, Total 6.3 g/dL (6.4-8.2); Sodium Level 135 mmol/L (136-145)
[2024-08-07] MEDS: ARIPiprazole 10 MG Tablet PO (09:28)
[2024-08-07] MEDS: Potassium Chloride Oral Tablet 20 MEQ PO ×2 (09:28→21:31)
[2024-08-07] MEDS: Multivitamins,Therapeutic Tablet 1 TABLET PO (09:29)
[2024-08-07] MEDS: Thiamine Hydrochloride 100 MG Tablet PO (09:29)
[2024-08-07] MEDS: Midodrine HCl 5 MG Tablet 10 MG PO ×3 (09:29→15:59)
[2024-08-07] MEDS: Folic Acid 1 MG Tablet PO (09:29)
[2024-08-07] MEDS: Metoprolol Tartrate 25 MG Tablet 12.5 MG PO ×2 (09:29→21:30)
[2024-08-07] MEDS: Enoxaparin 80 MG/0.8 ML Syringe SC (09:29)
[2024-08-07] MEDS: Menthol/Lanolin/Calamine/Znox 113 GM Tube 1 APPLIC TOPICAL ×2 (09:29→16:00)
[2024-08-07] MEDS: busPIRone 5 MG Tablet 10 MG PO ×2 (09:29→21:31)
[2024-08-07] MEDS: Pantoprazole Sodium 40 MG in 0.9% Normal Saline (100mL MB+) 100 ML 330 MG IV ×2 (09:30→21:36)
--- NOTE | 2024-08-07 10:18 | PN.HOSP_ITS ---
Reason for Visit Reason for Visit: Diagnoses Viral intestinal infection, unspecified (08/05/24) Unspecified atrial fibrillation (08/05/24) Subjective Subjective Tolerating clears. Now having diarrhea (doesn't take lactulose). Objective Data Objective Data Vital Signs: Vital Signs Temp Pulse Resp BP Pulse Ox O2 Del Method O2 Flow Rate 36.2 C L 97 18 93/70 94 Nasal Cannula 3 08/07/24 09:25 08/07/24 09:29 08/07/24 09:25 08/07/24 09:25 08/07/24 09:25 08/07/24 09:25 08/07/24 09:25 Oxygen Flow Rate (L/min) 3 Oxygen Delivery Method Nasal Cannula Weight: 78.7 kg Body Mass Index (BMI) 31.7 Intake & Output: Intake and Output for Last 24 Hours 08/05/24 08/06/24 08/07/24 23:59 23:59 23:59 Intake Total 1000 / 1000 3245.95 / 3245.95 110 / 110 Balance 1000 / 1000 3245.95 / 3245.95 110 / 110 Lab / Micro Data 08/07/24 04:45 08/07/24 04:45 Labs: Laboratory Results - last 24 hr 08/06/24 11:39: POC Glucose 117 H 08/07/24 04:45: WBC 6.9, RBC 3.43 L, Hgb 11.1 L, Hct 32.4 L, MCV 94.5, MCH 32.4 H, MCHC 34.3, RDW Std Deviation 48.8 H, RDW Coeff of Laxmi 14.1, Plt Count 198, MPV 10.2, Immature Gran % (Auto) 0.100, Neut % (Auto) 36.0 L, Lymph % (Auto) 46.4 H, [place] % (Auto) 12.3 H, Eos % (Auto) 4.6, Baso % (Auto) 0.6, Absolute Neuts (auto) 2.5, Absolute Lymphs (auto) 3.21, Nucleated RBC % 0, Sodium 135 L, Potassium 3.2 L, Chloride 100, Carbon Dioxide 29.0, Anion Gap 6, BUN 8, Creatinine 0.60, Estim Creat Clear Calc 68.11, Est GFR (MDRD) Af Amer 129, Est GFR (MDRD) Non-Af 107, BUN/Creatinine Ratio 13.4, Glucose 100, Calcium 8.6, T otal Bilirubin 2.40 H, AST 49 H, ALT 22, Alkaline Phosphatase 135 H, Total Protein 6.3 L, Albumin 1.9 L, Globulin 4.4 H, Albumin/Globulin Ratio 0.4 L Micro: Microbiology 08/06/24 14:15 Stool Enteric Bacteriology - Final 08/06/24 14:15 Stool Clostridioides difficile (PCR) - Final Rhythm Strip Rhythm Strip: A-fib Rate: 114 Ectopy: None Physical Exam Const alert and no apparent distress HEENT head/scalp atraumatic and moist oral mucous membranes Resp normal respiratory effort and no retractions Cardio regular rate, regular rhythm, S1 normal heart sound and S2 normal heart sound GI normal to inspection, nondistended, normoactive bowel sounds and soft to palpation GI Narrative: distended. Extremity normal to inspection, full ROM and no clubbing, cyanosis or edema Neuro Sensorium / Orientation: awake and alert Assessment & Plan Assessment/Plan (1) Atrial fibrillation, new onset: (2) Viral gastroenteritis: PLAN: Plan Gastroenteritis * SBO ruled out. * Now having diarrhea. Left side abdominal wall fluid collection * described as simple by radiology. I suspect it likely ascites as pt had a left side paracentesis around 0915 on 08/05, then the follow up CT at 2036 showed that finding. * monitor for now. * still draining. based on radiology measurements, it would be roughly a liter of fluid in the side of her abdomen. Abnormal UA. * postive nitrates and 500 LE, 3+ bacteria, but only 5-10 WBCs * UTI ruled out. DC CTX. Hyponatremia/Hypokalemia: * 2/2 GI losses. Improved * monitor. Chronic conditions: * alcoholic cirrhosis: had paracentesis same day as admission. Had paracentesis on which removed 1.3 liters, on 07/23 which removed 2.9. Continue midodrine. Start spironolactone and resume furosemide. * chronic normocytic anemia: Admission hemoglobin 11.6, MCV 94.7, baseline hemoglobin similar 11-12, continue to trend. * Chronic pain syndrome (neck and back): Will very cautiously continue patient home oxycodone regimen hold parameters for sedation, encourage offloading, PT/OT/case management consulted for discharge planning. * Anxiety and Depression/Bipolar type II disorder: We will continue patient aripiprazole, BuSpar home regimen as well as nightly trazodone with hold parameters for sedation. * Former tobacco use: Encourage continued cigarette tobacco cessation, remote history. * History EtOH abuse: Notes sober since 06/04/2024, encourage continued sobriety, maintain on vitamin supplementation. DVT Prophylaxis: Lovenox. Charges/Coding Visit Charges Inpatient E&M: 06464 Subs Hosp L2
[2024-08-07] MEDS: Creon 24,000 unit DR Capsule 1 CAP PO ×2 (11:03→15:59)
[2024-08-07] MEDS: Potassium Chloride Oral Tablet 20 MEQ 40 MEQ PO (11:03)
--- NOTE | 2024-08-07 22:17 | PCM.HOSP.N ---
Hospitalist Note Persistent epistaxis despite cold pack. Will d/c lovenox. Will place SCDs. Will trial russ solution on gauze, pack the nare and clamp x 15 minutes. Will reassess following.
[2024-08-07] MEDS: Mixture 30 ML Bottle TOPICAL (22:51)
[2024-08-08] VITALS (12 sets, daily range): BP systolic 88–104; BP diastolic 51–64; PULSE 80–95; RESP 18–20; TEMP 36.4–36.9; O2SAT 91–96; BMI 31.6
[2024-08-08 07:59] LABS: Anion Gap 5 (5-15); BUN 7 mg/dL (7-18); BUN/Creat Ratio 11.4 RATIO (10-20); Calcium,Total 8.7 mg/dL (8.5-10.1); Chloride 103 mmol/L (98-107); Creatinine, Serum 0.62 mg/dL (0.55-1.02); EST Glomerular Filtration Rate 104 mL/min (>60); Est Glom Filt Rate - Afr Amer 125 mL/min (>60); Estimated Creatinine Clearance 67.98 ml/min; Glucose 103 mg/dL (74-106); Potassium 3.9 mmol/L (3.5-5.1); Sodium Level 135 mmol/L (136-145)
[2024-08-08] MEDS: Midodrine HCl 5 MG Tablet 10 MG PO ×3 (08:22→16:32)
[2024-08-08] MEDS: Creon 24,000 unit DR Capsule 1 CAP PO ×3 (08:23→16:32)
[2024-08-08] MEDS: busPIRone 5 MG Tablet 10 MG PO ×2 (08:25→20:05)
[2024-08-08] MEDS: Multivitamins,Therapeutic Tablet 1 TABLET PO (08:26)
[2024-08-08] MEDS: Thiamine Hydrochloride 100 MG Tablet PO (08:26)
[2024-08-08] MEDS: Folic Acid 1 MG Tablet PO (08:26)
[2024-08-08] MEDS: ARIPiprazole 10 MG Tablet PO (08:26)
[2024-08-08] MEDS: Menthol/Lanolin/Calamine/Znox 113 GM Tube 1 APPLIC TOPICAL ×3 (08:27→20:06)
[2024-08-08] MEDS: Pantoprazole Sodium 40 MG in 0.9% Normal Saline (100mL MB+) 100 ML 330 MG IV ×2 (08:28→20:04)
[2024-08-08] MEDS: Potassium Chloride Oral Tablet 20 MEQ PO ×2 (08:29→20:06)
--- NOTE | 2024-08-08 10:03 | PN.HOSP_ITS ---
Reason for Visit Reason for Visit: Diagnoses Viral intestinal infection, unspecified (08/05/24) Unspecified atrial fibrillation (08/05/24) Subjective Subjective Had severe epistaxis this morning that lasted for several hours. Also has noted some blood clots in her stool. Has never had that problem before. Abdomen feeling better no further nausea and tolerating diet. Objective Data Objective Data Vital Signs: Vital Signs Temp Pulse Resp BP Pulse Ox O2 Del Method O2 Flow Rate 36.4 C L 92 18 91/51 L 96 Nasal Cannula 3 08/08/24 10:00 08/08/24 10:00 08/08/24 10:00 08/08/24 10:00 08/08/24 10:00 08/08/24 10:00 08/08/24 10:00 Oxygen Flow Rate (L/min) 3 Oxygen Delivery Method Nasal Cannula Weight: 78.4 kg Body Mass Index (BMI) 31.6 Intake & Output: Intake and Output for Last 24 Hours 08/06/24 08/07/24 08/08/24 23:59 23:59 23:59 Intake Total 3245.95 / 3245.95 820 / 820 110 / 110 Balance 3245.95 / 3245.95 820 / 820 110 / 110 Lab / Micro Data 08/07/24 04:45 08/08/24 06:45 Labs: Laboratory Results - last 24 hr 08/08/24 06:45: Sodium 135 L, Potassium 3.9, Chloride 103, Carbon Dioxide 27.0, Anion Gap 5, BUN 7, Creatinine 0.62, Estim Creat Clear Calc 67.98, Est GFR (MDRD) Af Amer 125, Est GFR (MDRD) Non-Af 104, BUN/Creatinine Ratio 11.4, Glucose 103, Calcium 8.7 Micro: Microbiology 08/05/24 21:09 Urine Catheter - Catheter Urine Culture - Final Klebsiella oxytoca 08/06/24 14:15 Stool Enteric Bacteriology - Final 08/06/24 14:15 Stool Clostridioides difficile (PCR) - Final Rhythm Strip Rhythm Strip: A-fib Rate: 114 Ectopy: None Physical Exam Const alert and no apparent distress HEENT head/scalp atraumatic Resp normal respiratory effort, no retractions, no use of accessory muscles and clear to auscultation bilaterally Cardio regular rate, regular rhythm, S1 normal heart sound and S2 normal heart sound GI GI Narrative: distended. soft. NT. Extremity normal to inspection Neuro Sensorium / Orientation: awake and alert Assessment & Plan Assessment/Plan (1) Atrial fibrillation, new onset: (2) Viral gastroenteritis: PLAN: Plan Gastroenteritis * SBO ruled out. * Now having diarrhea. Left side abdominal wall fluid collection * described as simple by radiology. I suspect it likely ascites as pt had a left side paracentesis around 0915 on 08/05, then the follow up CT at 2036 showed that finding. * monitor for now. * still draining. based on radiology measurements, it would be roughly a liter of fluid in the side of her abdomen. Abnormal UA. * postive nitrates and 500 LE, 3+ bacteria, but only 5-10 WBCs * UTI ruled out. DC CTX. Hyponatremia/Hypokalemia: * 2/2 GI losses. Improved * monitor. Epistaxis/GI bleed * Found epistaxis this morning that lasted roughly 3+ hours. Noticed blood clots in her stool today. Unclear if these blood clots are due to the epistaxis or another event altogether. Plan will be to monitor for now. Epistaxis seems to is resolved. VTE prophylaxis has been changed over to SCDs from enoxaparin. Chronic conditions: * alcoholic cirrhosis: had paracentesis same day as admission. Had paracentesis on which removed 1.3 liters, on 07/23 which removed 2.9. Continue midodrine. Start spironolactone and resume furosemide. * chronic normocytic anemia: Admission hemoglobin 11.6, MCV 94.7, baseline hemoglobin similar 11-12, continue to trend. * Chronic pain syndrome (neck and back): Will very cautiously continue patient home oxycodone regimen hold parameters for sedation, encourage offloading, PT/OT/case management consulted for discharge planning. * Anxiety and Depression/Bipolar type II disorder: We will continue patient aripiprazole, BuSpar home regimen as well as nightly trazodone with hold parameters for sedation. * Former tobacco use: Encourage continued cigarette tobacco cessation, remote history. * History EtOH abuse: Notes sober since 06/04/2024, encourage continued sobriety, maintain on vitamin supplementation. DVT Prophylaxis: SCDs Charges/Coding Visit Charges Inpatient E&M: 77975 Subs Hosp L2
[2024-08-08] MEDS: 0.9% Saline Lock 10 ML Syringe IV ×2 (20:03→20:39)
[2024-08-09] VITALS (14 sets, daily range): BP systolic 89–117; BP diastolic 54–69; PULSE 98–121; RESP 16–20; TEMP 36.4–36.7; O2SAT 94–97; BMI 31.3
[2024-08-09 06:46] LABS: Absolute Lymphocyte Count 2.28 X10^3/uL (0.83-4.51); Absolute Neutrophil Count 1.8 X10^3/uL (2.0-7.7); Basophil# 0.02 X10^3/uL; Basophil% 0.4 % (0-1); Eosinophil# 0.22 X10^3/uL; Eosinophils% 4.4 % (0-5); Hematocrit 30.3 % (37-47); Hemoglobin 10.2 g/dL (12.0-15.0); Lymphocyte # 2.28 X10^3/ul (0.83-4.51); Lymphocyte % 45.6 % (19-41); Mean Corp Hgb Conc 33.7 g/dL (32-36); Mean Corpuscular Hgb 31.7 pg (27.0-32.0); Mean Corpuscular Volume 94.1 fL (81-99); Mean Platelet Vol. 10.8 fl (6.2-12.0); Monocyte# 0.65 X10^3/uL; NRBC Flagged by Analyzer 0 % (0-5); Neutrophil # 1.82 X10^3/uL (2.7-7.7); Neutrophil % 36.4 % (47-70); Platelet Count 154 K/mm3 (150-450); RBC Distribution Width CV 14.3 % (11.6-14.6); RBC Distribution Width SD 48.9 fl (35.1-43.9); Red Blood Count 3.22 M/mm3 (4.2-5.4)
[2024-08-09] MEDS: Midodrine HCl 5 MG Tablet 10 MG PO ×3 (07:46→18:11)
[2024-08-09] MEDS: Creon 24,000 unit DR Capsule 1 CAP PO ×2 (07:46→11:55)
[2024-08-09] MEDS: 0.9% Saline Lock 10 ML Syringe IV (07:46)
[2024-08-09] MEDS: Thiamine Hydrochloride 100 MG Tablet PO (07:47)
[2024-08-09] MEDS: Spironolactone 50 MG Tablet PO (07:48)
[2024-08-09] MEDS: Multivitamins,Therapeutic Tablet 1 TABLET PO (07:48)
[2024-08-09] MEDS: ARIPiprazole 10 MG Tablet PO (07:48)
[2024-08-09] MEDS: busPIRone 5 MG Tablet 10 MG PO ×2 (07:49→22:38)
[2024-08-09] MEDS: Folic Acid 1 MG Tablet PO (07:56)
[2024-08-09] MEDS: Pantoprazole Sodium 40 MG Tablet PO ×2 (07:57→22:39)
[2024-08-09] MEDS: Potassium Chloride Oral Tablet 20 MEQ PO ×2 (07:57→22:38)
[2024-08-09 08:05] LABS: Anion Gap 5 (5-15); BUN 7 mg/dL (7-18); BUN/Creat Ratio 12.2 RATIO (10-20); Calcium,Total 8.4 mg/dL (8.5-10.1); Chloride 106 mmol/L (98-107); Creatinine, Serum 0.58 mg/dL (0.55-1.02); EST Glomerular Filtration Rate 112 mL/min (>60); Est Glom Filt Rate - Afr Amer 135 mL/min (>60); Estimated Creatinine Clearance 67.62 ml/min; Glucose 103 mg/dL (74-106); Potassium 3.9 mmol/L (3.5-5.1); Sodium Level 138 mmol/L (136-145)
[2024-08-09] MEDS: Ceftriaxone 1 GM/50 ML BAG IV (08:40)
[2024-08-09] MEDS: Furosemide 40 MG Tablet PO (09:45)
[2024-08-09] MEDS: Menthol/Lanolin/Calamine/Znox 113 GM Tube 1 APPLIC TOPICAL ×3 (09:46→22:39)
[2024-08-09] MEDS: SimETHICONE 80 MG Chewable Tablet PO ×2 (11:54→18:11)
[2024-08-09 12:20] LABS: Hemoglobin 11.4 g/dL (12.0-15.0)
[2024-08-09] MEDS: Haloperidol 1 MG Tablet 0.5 MG PO ×2 (13:50→22:41)
--- NOTE | 2024-08-09 16:21 | PCM.PN.HOSP ---
Reason for Visit Reason for Visit: Nausea/vomiting/diarrhea Subjective Subjective Patient is a 64-year-old white female who resides in an [facility] and presented to the emergency department at [facility] on 08/05/2024 secondary to nausea vomiting with diarrhea. The patient has known history of ascites and had a paracentesis done on the same day of admission. She stated this went well and about 1 to 2 L were removed at that time. Patient reported that she was eating dinner around 6 PM and started having nausea, vomiting, and diarrhea along with epigastric and diffuse abdominal pain. She denied any fever, had no dysuria and denied any previous abdominal surgeries. She also complained of some component abdominal cramping that was diffuse in nature. She does have history of exocrine pancreatic insufficiency/chronic pancreatitis and does have chronic loose stools however she stated this was different than her baseline. She is on Creon supplementation at baseline. Vital signs on presentation showed temperature 97.7, heart rate 114, blood pressure 105/64, respiratory rate 28 and pulse ox was 95% on room air. Her CBC showed a mild anemia with a hemoglobin of 11.6 which seems to be close to her baseline. Labs are otherwise unremarkable other than a monocytosis which appears to be chronic. Chemistry panel showed hyponatremia with a sodium of 135 which appears close to where she fluctuates, she was hypokalemic with a potassium of 2.9 and this improved with supplementation. She does have chronic hyperbilirubinemia and her bilirubin was within her normal range. Magnesium level was found to be 1.5 and this was replaced as well. She has chronically low albumin and her lipase was normal. Procalcitonin was mildly elevated at 0.13. Her UA was suggestive of infection so urine culture was sent. Urine culture did finally show Klebsiella oxytocin with the CFU per high-power field greater than 100,000 she was started on ceftriaxone on 08/09/2024. Enteric panel and C. difficile were negative. Patient had been doing quite well but on 08/09/2024 she stated she was not feeling well and had general malaise. She had difficulty getting up with therapy and was leaking out of her paracentesis site. A ostomy bag was placed over the site to get the extra fluid. She was noted to have a significant lymphocytosis that started about 48 hours prior to the so viral entities were pursued with a COVID test as well as a respiratory viral panel. She also complained of some abdominal cramping and felt she needed to have a bowel movement. She was given simethicone which helped and she also had a bowel movement which relieved her abdominal cramping. Patient was concerned that she was being nauseated by the Lasix so I did discuss with her that we would transition to Bumex and she indicated the Zofran was not helpful so we did transition from Zofran to Haldol low-dose. Objective Data Objective Data Vital Signs: Vital Signs Temp Pulse Resp BP Pulse Ox O2 Del Method O2 Flow Rate 98.1 F 109 H 20 H 117/66 95 Nasal Cannula 2 08/09/24 13:49 08/09/24 13:49 08/09/24 13:49 08/09/24 13:49 08/09/24 13:49 08/09/24 13:49 08/09/24 13:49 Oxygen Flow Rate (L/min) 2 Oxygen Delivery Method Nasal Cannula Weight: 77.6 kg Body Mass Index (BMI) 31.3 Intake & Output: Intake and Output for Last 24 Hours 08/07/24 08/08/24 08/09/24 23:59 23:59 23:59 Intake Total 820 / 820 920 / 920 250 / 250 Balance 820 / 820 920 / 920 250 / 250 Lab / Micro Data 08/09/24 12:02 08/09/24 06:11 Labs: Laboratory Results - last 24 hr 08/09/24 06:11: WBC 5.0, RBC 3.22 L, Hgb 10.2 L, Hct 30.3 L, MCV 94.1, MCH 31.7, MCHC 33.7, RDW Std Deviation 48.9 H, RDW Coeff of Laxmi 14.3, Plt Count 154, MPV 10.8, Immature Gran % (Auto) 0.200, Neut % (Auto) 36.4 L, Lymph % (Auto) 45.6 H, [place] % (Auto) 13.0 H, Eos % (Auto) 4.4, Baso % (Auto) 0.4, Absolute Neuts (auto) 1.8 L, Absolute Lymphs (auto) 2.28, Nucleated RBC % 0, Sodium 138, Potassium 3.9, Chloride 106, Carbon Dioxide 28.0, Anion Gap 5, BUN 7, Creatinine 0.58, Estim Creat Clear Calc 67.62, Est GFR (MDRD) Af Amer 135, Est GFR (MDRD) Non-Af 112, BUN/Creatinine Ratio 12.2, Glucose 103, Calcium 8.4 L 08/09/24 12:02: Hgb 11.4 L Micro: Microbiology 08/09/24 14:30 Nasal Secretion SARS-CoV-2 Antigen (Rapid) - Final 08/05/24 21:09 Urine Catheter - Catheter Urine Culture - Final Klebsiella oxytoca 08/06/24 14:15 Stool Enteric Bacteriology - Final 08/06/24 14:15 Stool Clostridioides difficile (PCR) - Final Rhythm Strip Rhythm Strip: A-fib Rate: 114 Ectopy: None Physical Exam Const alert, oriented x3, no apparent distress, average body habitus and well nourished; Negative for healthy appearing Constitutional Narrative: Obese, upper middle-aged, white female, lying in bed, appears much older than stated age, appears slightly uncomfortable and is if she is not feeling well but not toxic, interacts appropriately HEENT head/scalp atraumatic, moist oral mucous membranes and oropharynx normal HEENT Narrative: Mallampati 3, no thrush Resp normal respiratory effort, no retractions, no use of accessory muscles and clear to auscultation bilaterally Auscultation: Negative for rales, rhonchi or wheezes Cardio regular rate, regular rhythm, S1 normal heart sound, S2 normal heart sound, no murmurs, no rub, no gallops and no clicks GI soft to palpation; Negative for non-tender GI Narrative: Abdomen slightly distended with no significant fluid wave, mild tenderness, bowel sounds are hyperactive, no organomegaly appreciated Extremity Extremity Narrative: Trace lower extremity edema with no cyanosis or clubbing Neuro oriented x3, moves all extremities and no focal motor deficits Neuro Narrative: Generalized weakness noted but no focal deficits Speech: speech normal Psych Psych Narrative: Affect is slightly flat but appropriate for the current situation, eye contact is good and patient interacts appropriately Assessment & Plan Assessment/Plan (1) Acute hypokalemia: (2) History of ascites: (3) Atrial fibrillation, new onset: (4) Vomiting: (5) Diarrhea: (6) Viral gastroenteritis: (7) UTI due to Klebsiella species: PLAN: Plan Acute Klebsiella UTI -UA was suggestive of infection but it was felt that UTI was ruled out however culture has now grown Klebsiella -Will restart ceftriaxone -Could potentially be contributing to her nausea and vomiting '-Will treat for 7 days--> day 1 of 7 -Will plan to discharge on Omnicef to complete treatment once patient is medically stable Suspected viral gastroenteritis -Patient still with nausea but thinks it is related to her medications at this time -We have transitioned her Lasix to Bumex and Zofran to Haldol as she felt that this was not effective -Continue antiemetics next-also could be related to her UTI -Will continue to monitor with the addition of antibiotics Hypokalemia/hypomagnesemia -Resolved -Will continue to periodically monitor Lymphocytosis -This is new in the last 24 hours and patient is feeling acutely ill -Will check COVID-19 next-check respiratory viral panel and continue to monitor with supportive care Hyponatremia -Resolved Epistaxis -Resolved -Hemoglobin is relatively stable -Off anticoagulation due to this PAF -Present on admission -Patient with outpatient echocardiogram done on 08/05/2024 -Patient had been on carvedilol but will transition to metoprolol and continue current dosing -did receive Cardizem which subsequently dropped her blood pressure -Patient is substantial fall risk with her history and with epistaxis will defer anticoagulation at this time -Also high risk for GI bleed with history of cirrhosis Alcohol related cirrhosis of the liver/chronic pancreatitis -Continue outpatient medications as ordered -Continue outpatient follow-up with Dr. Thompson per previous recommendation -Last appointment was on 07/30/2024 Chronic pain -Continue home regimen Chronic anemia -Hemoglobin is relatively stable despite epistaxis yesterday History of tobacco abuse -Remote History of alcohol abuse -Has been sober since 06/04/2024 -Continue home vitamin supplementation -Encouraged ongoing sobriety Anxiety/depression -Continue home medication DVT prophylaxis -SCDs due to epistaxis CODE STATUS -DNR CCA with no intubation as verified on admission Charges/Coding Visit Charges Inpatient E&M: 87983 Subs Hosp L3
[2024-08-10] VITALS (17 sets, daily range): BP systolic 93–99; BP diastolic 56–66; PULSE 64–127; RESP 12–18; TEMP 36.4–37.1; O2SAT 94–97; BMI 32.3; BMI 31.8
[2024-08-10 06:03] LABS: Absolute Lymphocyte Count 2.49 X10^3/uL (0.83-4.51); Absolute Neutrophil Count 1.9 X10^3/uL (2.0-7.7); Basophil# 0.02 X10^3/uL; Basophil% 0.4 % (0-1); Eosinophil# 0.21 X10^3/uL; Hemoglobin 10.4 g/dL (12.0-15.0); Lymphocyte # 2.49 X10^3/ul (0.83-4.51); Lymphocyte % 47.2 % (19-41); Mean Corp Hgb Conc 33.5 g/dL (32-36); Mean Corpuscular Hgb 31.5 pg (27.0-32.0); Mean Corpuscular Volume 93.9 fL (81-99); Mean Platelet Vol. 10.8 fl (6.2-12.0); Monocyte% 13.3 % (0-10); NRBC Flagged by Analyzer 0 % (0-5); Neutrophil # 1.85 X10^3/uL (2.7-7.7); Neutrophil % 34.9 % (47-70); Platelet Count 150 K/mm3 (150-450); RBC Distribution Width CV 14.2 % (11.6-14.6); RBC Distribution Width SD 49.3 fl (35.1-43.9); White Blood Count 5.3 K/mm3 (4.4-11.0)
[2024-08-10 06:39] LABS: ALB/GLOB Ratio 0.4 RATIO (0.9-2.4); AST(SGOT) 43 U/L (15-37); Alanine Aminotransfer ALT/SGPT 22 U/L (13-56); Albumin, Serum 1.8 g/dL (3.2-5.0); Alkaline Phosphatase 146 U/L (45-117); Anion Gap 7 (5-15); BUN 5 mg/dL (7-18); BUN/Creat Ratio 12.2 RATIO (10-20); Chloride 104 mmol/L (98-107); Creatinine, Serum 0.41 mg/dL (0.55-1.02); EST Glomerular Filtration Rate 165 mL/min (>60); Est Glom Filt Rate - Afr Amer 199 mL/min (>60); Estimated Creatinine Clearance 68.73 ml/min; Globulin 4.6 g/dL (2.2-4.2); Glucose 95 mg/dL (74-106); Magnesium 1.5 mg/dL (1.6-2.6); Phosphorus 2.6 mg/dL (2.5-4.9); Potassium 3.4 mmol/L (3.5-5.1); Protein, Total 6.4 g/dL (6.4-8.2); Sodium Level 138 mmol/L (136-145)
[2024-08-10] MEDS: Folic Acid 1 MG Tablet PO (08:01)
[2024-08-10] MEDS: Creon 24,000 unit DR Capsule 1 CAP PO ×3 (08:01→16:36)
[2024-08-10] MEDS: busPIRone 5 MG Tablet 10 MG PO ×2 (08:02→22:15)
[2024-08-10] MEDS: Thiamine Hydrochloride 100 MG Tablet PO (08:03)
[2024-08-10] MEDS: Pantoprazole Sodium 40 MG Tablet PO ×2 (08:10→22:15)
[2024-08-10] MEDS: Potassium Chloride Oral Tablet 20 MEQ PO ×2 (08:10→22:16)
[2024-08-10] MEDS: SimETHICONE 80 MG Chewable Tablet PO ×3 (08:10→18:03)
[2024-08-10] MEDS: Multivitamins,Therapeutic Tablet 1 TABLET PO (08:10)
[2024-08-10] MEDS: Midodrine HCl 5 MG Tablet 10 MG PO ×3 (09:09→16:36)
[2024-08-10] MEDS: Magnesium Sulfate 2 GM in Dextrose 5%-Water (100mL Bag) 100 ML IV (09:31)
[2024-08-10] MEDS: Potassium Chloride 10mEq/100mL 10 MEQ/100 ML IV.SOLN. 100 MEQ IV BOLUS (09:54)
[2024-08-10] MEDS: 0.9% Saline Lock 10 ML Syringe IV ×2 (09:55→15:21)
[2024-08-10] MEDS: Potassium Chloride 10mEq/100mL 10 MEQ/100 ML IV.SOLN. 75 MEQ IV BOLUS ×3 (10:52→13:54)
[2024-08-10] MEDS: Menthol/Lanolin/Calamine/Znox 113 GM Tube 1 APPLIC TOPICAL ×4 (11:04→22:16)
[2024-08-10] MEDS: ARIPiprazole 10 MG Tablet PO (11:04)
[2024-08-10] MEDS: Metoprolol Tartrate 25 MG Tablet 12.5 MG PO ×2 (11:05→22:15)
[2024-08-10] MEDS: Ceftriaxone 1 GM/50 ML BAG IV (12:10)
[2024-08-10] MEDS: Bumetanide 0.5 MG Tablet 1 MG PO (12:27)
--- NOTE | 2024-08-10 15:24 | PCM.PN.HOSP ---
Reason for Visit Reason for Visit: Nausea/vomiting/diarrhea Subjective Subjective States that her nausea is much better since we transitioned her off Lasix to Bumex. She did report she had recurrent diarrhea this morning and then had subsequent episodes so we will recheck C. difficile and enteric panel given presentation. Patient does have a history with chronic pancreatitis which could precipitate diarrhea but also has risk factors for C. difficile. Patient states overall she feels much better today. Denies any current needs. Ate a significant portion of her breakfast without difficulty. Objective Data Objective Data Vital Signs: Vital Signs Temp Pulse Resp BP Pulse Ox O2 Del Method O2 Flow Rate 97.6 F L 94 13 97/64 97 Nasal Cannula 2 08/10/24 14:17 08/10/24 14:17 08/10/24 14:17 08/10/24 14:17 08/10/24 14:17 08/10/24 14:17 08/10/24 14:17 Oxygen Flow Rate (L/min) 2 Oxygen Delivery Method Nasal Cannula Weight: 78.9 kg Body Mass Index (BMI) 31.8 Intake & Output: Intake and Output for Last 24 Hours 08/08/24 08/09/24 08/10/24 23:59 23:59 23:59 Intake Total 920 / 920 610 / 610 950.67 / 950.67 Balance 920 / 920 610 / 610 950.67 / 950.67 Lab / Micro Data 08/10/24 05:19 08/10/24 05:19 Labs: Laboratory Results - last 24 hr 08/10/24 05:19: WBC 5.3, RBC 3.30 L, Hgb 10.4 L, Hct 31.0 L, MCV 93.9, MCH 31.5, MCHC 33.5, RDW Std Deviation 49.3 H, RDW Coeff of Laxmi 14.2, Plt Count 150, MPV 10.8, Immature Gran % (Auto) 0.200, Neut % (Auto) 34.9 L, Lymph % (Auto) 47.2 H, [place] % (Auto) 13.3 H, Eos % (Auto) 4.0, Baso % (Auto) 0.4, Absolute Neuts (auto) 1.9 L, Absolute Lymphs (auto) 2.49, Nucleated RBC % 0, Sodium 138, Potassium 3.4 L, Chloride 104, Carbon Dioxide 27.0, Anion Gap 7, BUN 5 L, Creatinine 0.41 L, Estim Creat Clear Calc 68.73, Est GFR (MDRD) Af Amer 199, Est GFR (MDRD) Non-Af 165, BUN/Creatinine Ratio 12.2, Glucose 95, Calcium 8.0 L, Phosphorus 2.6, Magnesium 1.5 L, Total Bilirubin 2.40 H, AST 43 H, ALT 22, Alkaline Phosphatase 146 H, Total Protein 6.4, Albumin 1.8 L, Globulin 4.6 H, Albumin/Globulin Ratio 0.4 L, TSH 1.160 Micro: Microbiology 08/09/24 13:25 Mucosa - Nose Respiratory Panel (PCR) - Final 08/09/24 14:30 Nasal Secretion SARS-CoV-2 Antigen (Rapid) - Final 08/05/24 21:09 Urine Catheter - Catheter Urine Culture - Final Klebsiella oxytoca 08/06/24 14:15 Stool Enteric Bacteriology - Final 08/06/24 14:15 Stool Clostridioides difficile (PCR) - Final Rhythm Strip Rhythm Strip: A-fib Rate: 114 Ectopy: None Physical Exam Const alert, oriented x3, no apparent distress, average body habitus and well nourished; Negative for healthy appearing Constitutional Narrative: Obese, upper middle-aged, white female, sitting up in bed, appears much older than stated age, appears as if she is feeling better today HEENT head/scalp atraumatic and moist oral mucous membranes HEENT Narrative: Mallampati 3, no thrush Head and Scalp: normocephalic Resp normal respiratory effort, no retractions, no use of accessory muscles and clear to auscultation bilaterally Auscultation: Negative for rales, rhonchi or wheezes Cardio regular rate, regular rhythm, S1 normal heart sound, S2 normal heart sound, no murmurs, no rub, no gallops and no clicks GI normal to inspection, nondistended, normoactive bowel sounds and soft to palpation; Negative for non-tender GI Narrative: Abdomen slightly distended with no significant fluid wave, mild tenderness, bowel sounds are normal active Extremity Extremity Narrative: Trace to 1+ lower extremity edema with no cyanosis or clubbing Neuro oriented x3, moves all extremities and no focal motor deficits Neuro Narrative: Generalized weakness noted but no focal deficits Speech: speech normal Psych Psych Narrative: Affect much less flat today, appears comfortable, interacts appropriately, eye contact is good Assessment & Plan Assessment/Plan (1) Acute hypokalemia: (2) History of ascites: (3) Atrial fibrillation, new onset: (4) Vomiting: (5) Diarrhea: (6) Viral gastroenteritis: (7) UTI due to Klebsiella species: PLAN: Plan Acute Klebsiella UTI -UA was suggestive of infection but it was felt that UTI was ruled out however culture has now grown Klebsiella -Continue ceftriaxone-day 2 of 7 -Will plan to discharge on Omnicef to complete treatment once patient is medically stable Nausea and vomiting -Nausea and vomiting much better off of Lasix with transition to Bumex -Continue as needed antiemetics Recurrent acute on chronic diarrhea -Patient has chronic pancreatitis for which she takes Creon and states her diarrhea was fairly well-controlled on this -Has had negative C. difficile and enteric panel however with recurrent diarrhea we will check again -May be related to antibiotics and if enteric panel and C. difficile are negative will go ahead and start Imodium as needed Hypokalemia/hypomagnesemia -Potassium and magnesium bolus given again today for low values -Recheck in a.m. Chronic hypoxic respiratory failure -patient is on 2 L nasal cannula -At baseline -continue to monitor Lymphocytosis -Viral workup unremarkable -Remains elevated -Continue to monitor with repeat lab in a.m. Epistaxis -Resolved with no further recurrence -Hemoglobin is relatively stable -Off anticoagulation due to this PAF -Present on admission -Patient with outpatient echocardiogram done on 08/05/2024 -Patient had been on carvedilol but will transition to metoprolol and continue current dosing -did receive Cardizem which subsequently dropped her blood pressure -Patient is substantial fall risk with her history and with epistaxis will defer anticoagulation at this time -Also high risk for GI bleed with history of cirrhosis Alcohol related cirrhosis of the liver/chronic pancreatitis -Continue outpatient medications as ordered -Continue outpatient follow-up with Dr. Thompson per previous recommendation -Last appointment was on 07/30/2024 Chronic pain -Continue home regimen Chronic anemia -Hemoglobin is relatively stable despite epistaxis on 08/08/2024 History of tobacco abuse -Remote History of alcohol abuse -Has been sober since 06/04/2024 -Continue home vitamin supplementation -Encouraged ongoing sobriety Anxiety/depression -Continue home medication DVT prophylaxis -SCDs due to epistaxis CODE STATUS -DNR CCA with no intubation as verified on admission Charges/Coding Visit Charges Inpatient E&M: 50862 Subs Hosp L2
[2024-08-11] VITALS (12 sets, daily range): BP systolic 91–114; BP diastolic 53–72; PULSE 81–94; RESP 14–20; TEMP 36.2–36.8; O2SAT 91–95; BMI 33.1
[2024-08-11 06:33] LABS: Absolute Lymphocyte Count 2.37 X10^3/uL (0.83-4.51); Absolute Neutrophil Count 2.2 X10^3/uL (2.0-7.7); Basophil# 0.03 X10^3/uL; Basophil% 0.5 % (0-1); Eosinophil# 0.27 X10^3/uL; Eosinophils% 4.9 % (0-5); Hematocrit 32.1 % (37-47); Hemoglobin 10.8 g/dL (12.0-15.0); Lymphocyte # 2.37 X10^3/ul (0.83-4.51); Lymphocyte % 42.7 % (19-41); Mean Corp Hgb Conc 33.6 g/dL (32-36); Mean Corpuscular Hgb 31.6 pg (27.0-32.0); Mean Corpuscular Volume 93.9 fL (81-99); Mean Platelet Vol. 10.3 fl (6.2-12.0); Monocyte# 0.65 X10^3/uL; Monocyte% 11.7 % (0-10); NRBC Flagged by Analyzer 0 % (0-5); Neutrophil # 2.22 X10^3/uL (2.7-7.7); Platelet Count 141 K/mm3 (150-450); RBC Distribution Width CV 14.3 % (11.6-14.6); RBC Distribution Width SD 48.6 fl (35.1-43.9); Red Blood Count 3.42 M/mm3 (4.2-5.4); White Blood Count 5.6 K/mm3 (4.4-11.0)
[2024-08-11 06:58] LABS: Anion Gap 6 (5-15); BUN 4 mg/dL (7-18); BUN/Creat Ratio 7.3 RATIO (10-20); Calcium,Total 8.2 mg/dL (8.5-10.1); Chloride 105 mmol/L (98-107); Creatinine, Serum 0.55 mg/dL (0.55-1.02); EST Glomerular Filtration Rate 118 mL/min (>60); Est Glom Filt Rate - Afr Amer 143 mL/min (>60); Estimated Creatinine Clearance 69.66 ml/min; Glucose 90 mg/dL (74-106); Magnesium 1.6 mg/dL (1.6-2.6); Potassium 3.6 mmol/L (3.5-5.1); Sodium Level 138 mmol/L (136-145)
[2024-08-11] MEDS: Bumetanide 0.5 MG Tablet 1 MG PO (09:39)
[2024-08-11] MEDS: Pantoprazole Sodium 40 MG Tablet PO (09:39)
[2024-08-11] MEDS: Thiamine Hydrochloride 100 MG Tablet PO (09:39)
[2024-08-11] MEDS: Multivitamins,Therapeutic Tablet 1 TABLET PO (09:40)
[2024-08-11] MEDS: Midodrine HCl 5 MG Tablet 10 MG PO ×3 (09:40→17:24)
[2024-08-11] MEDS: Creon 24,000 unit DR Capsule 1 CAP PO ×3 (09:40→17:24)
[2024-08-11] MEDS: ARIPiprazole 10 MG Tablet PO (09:40)
[2024-08-11] MEDS: busPIRone 5 MG Tablet 10 MG PO (09:40)
[2024-08-11] MEDS: Metoprolol Tartrate 25 MG Tablet 12.5 MG PO (09:40)
[2024-08-11] MEDS: SimETHICONE 80 MG Chewable Tablet PO ×3 (09:40→17:24)
[2024-08-11] MEDS: Potassium Chloride Oral Tablet 20 MEQ PO (09:40)
[2024-08-11] MEDS: Folic Acid 1 MG Tablet PO (09:40)
[2024-08-11] MEDS: Menthol/Lanolin/Calamine/Znox 113 GM Tube 1 APPLIC TOPICAL ×2 (09:43→17:24)
[2024-08-11] MEDS: Ceftriaxone 1 GM/50 ML BAG IV (10:43)
--- NOTE | 2024-08-11 12:22 | PCM.TXEXTCAR ---
Diet Diet Order/Speech Therapy: 08/07/24 15:13 Diet: Regular - General Routine Orders/Code Status Routine Lab Work: CBC (1 week) and BMP (1 week) Code Status: DNRCC-A (No ETT) DC O2, CPAP, BIPAP needs RN Home O2 Qualification: -no O2 at rest and 2 L with exertion -PRN Home O2 Discharge instructions: Yes Type of respiratory needs?: Oxygen Oxygen frequency: With Ambulation Oxygen liters per minute during Ambulation: 2 and Other (PRN) Other oxygen liters per minute: 2 Other oxygen frequency: PRN Wound(s) left side abdomen x2: Wound Type: Puncture (Use Ostomy bag to collect leaking fluid) rt upper thigh: Wound Type: pressure lt buttock: Wound Type: pressure Suggestions for Active Care Change Position every (hours): 2 Hours to sit in a chair: 3 Times a day to sit in chair: 2 Therapies Weight Bearing: Full weight bearing Physical Therapy: Eval and Treat Occupational Therapy: Eval and Treat Problem/Diagnosis (1) Acute hypokalemia: Status: Acute Code(s): E87.6 - Hypokalemia (2) History of ascites: Status: Acute Code(s): Z87.898 - Personal history of other specified conditions (3) Atrial fibrillation, new onset: Status: Acute Code(s): I48.91 - Unspecified atrial fibrillation (4) Vomiting: Status: Acute Code(s): R11.10 - Vomiting, unspecified (5) Diarrhea: Status: Acute Code(s): R19.7 - Diarrhea, unspecified (6) Viral gastroenteritis: Status: Acute Code(s): A08.4 - Viral intestinal infection, unspecified (7) UTI due to Klebsiella species: Status: Acute Code(s): N39.0 - Urinary tract infection, site not specified; B96.89 - Other specified bacterial agents as the cause of diseases classified elsewhere Allergies/Procedures Done in Hospital Allergies No Known Allergies Allergy (Verified 08/05/24 19:20) Procedures: - (CT abdomen and pelvis) Type of Care/Length of Stay Estimated LOS: More Than 30 Days Type of Care Needed: Intermediate Rehab Potential: Fair Prognosis: Fair Additional Orders/Day of Discharge Day of Discharge: 08/11/24 Dietary and Speech Recommendations Dietitian Recommendations/Changes: Continue Regular diet to optimize oral intakes. Follow Up Care Please Follow Up With: Dwayne Thompson DO When: 4-6 weeks Discharge Plan Admission Admit Date/Time: 08/05/24 23:07 Attending Provider: Melanie Wu Primary Care Provider: Maxim Stokes Consulting Providers: Kelly Rowland; Nader Royal Discharge Orders/Prescriptions Prescriptions: No Action (DME) Adjustable Underwear Misc See Rx Instructions .ROUTE .MEDSUPPLY Qty: 200 3RF Rx Instructions: As directed. Large aripiprazole 10 mg tablet 10 mg PO DAILY Qty: 30 5RF buspirone 10 mg tablet 10 mg PO BID Qty: 60 5RF cholecalciferol (vitamin D3) 50 mcg (2,000 unit) capsule 25 mcg PO DAILY furosemide 40 mg tablet 40 mg PO BID ondansetron HCl 4 mg tablet 4 mg PO Q8H PRN (Reason: nausea and vomiting) Creon 24,000-76,000 -120,000 unit capsule,delayed release(DR/EC) 1 cap PO TID Rx Instructions: administer with meals and/or snacks potassium chloride 20 mEq tablet extended release 20 meq PO BID midodrine 5 mg Tablet 10 mg PO TIDCM Qty: 0 0RF carvedilol 3.125 mg Tablet 3.125 mg PO BID Qty: 0 0RF folic acid 1 mg Tablet 1 mg PO BREAKFAST Qty: 0 0RF nystatin [Nyamyc] 100,000 unit/gram Powder 1 applic topical BID Qty: 0 0RF Protocol: *Topical Application Instructions APPLICATION INSTRUCTIONS: apply to groin menthol-zinc oxide [Calmoseptine] 0.44-20.6 % Ointment 1 applic topical BID Qty: 0 0RF Protocol: *Topical Application Instructions APPLICATION INSTRUCTIONS: apply to buttock trazodone 100 mg Tablet 100 mg PO QHS PRN PRN (Reason: Insomnia) Qty: 0 0RF oxycodone 5 mg Tablet 5 mg PO Q6H PRN PRN (Reason: Pain Score 1-10) 2 Days Qty: 5 0RF spironolactone [Aldactone] 25 mg tablet 25 mg PO DAILY (DME) Lift Chair See Rx Instructions .Route .MEDSUPPLY Qty: 1 0RF Rx Instructions: As directed thiamine HCl (vitamin B1) 100 mg tablet 100 mg PO DAILY Qty: 90 3RF ursodiol 250 mg tablet 250 mg PO BID Qty: 60 9RF multivitamin [One Daily Multivitamin] Tablet 1 tab PO DAILY Qty: 90 1RF Referrals / Follow Up: Maxim Stokes MD [Primary Care Provider] -
--- NOTE | 2024-08-11 12:27 | DS.PCM_ITS ---
Providers Date of Admission: 08/05/24 Date of Discharge: 08/11/24 Primary Care Physician: Dr. Maxim Stokes MD Reason For Visit: N/V/D, UTI?, ELECTROLYTE DISTURBANCES, ? PAF RVR Diagnosis Discharge Diagnosis (1) Acute hypokalemia: Status: Acute Code(s): E87.6 - Hypokalemia (2) History of ascites: Status: Acute Code(s): Z87.898 - Personal history of other specified conditions (3) Atrial fibrillation, new onset: Status: Acute Code(s): I48.91 - Unspecified atrial fibrillation (4) Vomiting: Status: Acute Code(s): R11.10 - Vomiting, unspecified (5) Diarrhea: Status: Acute Code(s): R19.7 - Diarrhea, unspecified (6) Viral gastroenteritis: Status: Acute Code(s): A08.4 - Viral intestinal infection, unspecified (7) UTI due to Klebsiella species: Status: Acute Code(s): N39.0 - Urinary tract infection, site not specified; B96.89 - Other specified bacterial agents as the cause of diseases classified elsewhere Medications at Discharge Home Medications Lift Chair #1 ea 12/08/20 diaper,brief,adult,disposable (Adjustable Underwear) #200 ea 09/22/23 cholecalciferol (vitamin D3) 50 mcg (2,000 unit) capsule 25 mcg PO DAILY 12/29/23 thiamine HCl (vitamin B1) 100 mg tablet 100 mg PO DAILY #90 tabs 12/30/23 aripiprazole 10 mg tablet 10 mg PO DAILY #30 tabs 03/18/24 buspirone 10 mg tablet 10 mg PO BID #60 tabs 03/18/24 ursodiol 250 mg tablet 250 mg PO BID #60 TABLETS 04/13/24 multivitamin (One Daily Multivitamin tablet) 1 tab PO DAILY #90 tabs 06/02/24 folic acid 1 mg tablet 1 mg PO BREAKFAST #0 tabs 06/15/24 menthol 0.44 %-zinc oxide 20.6 % topical ointment (Calmoseptine) 1 applic topical BID #0 grams 06/15/24 midodrine 5 mg tablet 10 mg (2 x 5 mg) PO TIDCM #0 tabs 06/15/24 nystatin 100,000 unit/gram topical powder (Nyamyc) 1 applic topical BID #0 grams 06/15/24 trazodone 100 mg tablet 100 mg PO QHS PRN PRN Insomnia #0 tabs 06/15/24 baonzb-[id number] 24,000-76,000-120,000 unit capsule,delayed rel (Creon) 1 cap PO TID 07/30/24 potassium chloride 20 mEq tablet,extended release 20 meq PO BID 07/30/24 spironolactone 25 mg tablet (Aldactone) 25 mg PO DAILY 08/05/24 acetaminophen 325 mg tablet 650 mg (2 x 325 mg) PO Q4H PRN PRN Fever, pain 1- 04/22 #0 tabs 08/11/24 bumetanide 0.5 mg tablet 1 mg (2 x 0.5 mg) PO BID #0 tabs 08/11/24 cefdinir 300 mg capsule 300 mg PO BID #1 cap 08/11/24 haloperidol 1 mg tablet 0.5 mg (1/2 x 1 mg) PO TID PRN Nausea/Vomiting #0 tabs 08/11/24 metoprolol tartrate 25 mg tablet 12.5 mg (1/2 x 25 mg) PO BID #0 tabs 08/11/24 simethicone 80 mg chewable tablet 80 mg PO TIDPC #0 tabs 08/11/24 Hospital Course Operations None Procedures EKG and - (CT abdomen and pelvis) Summary of Care Provided Minutes Spent on Discharge: 41 Hospital Course: Patient is a 64-year-old white female who resides in an [facility] and presented to the emergency department at [facility] on 08/05/2024 secondary to nausea vomiting with diarrhea. The patient has known history of ascites and had a paracentesis done on the same day of admission. She stated this went well and about 1 to 2 L were removed at that time. Patient reported that she was eating dinner around 6 PM and started having nausea, vomiting, and diarrhea along with epigastric and diffuse abdominal pain. She denied any fever, had no dysuria and denied any previous abdominal surgeries. She also complained of some component abdominal cramping that was diffuse in nature. She does have history of exocrine pancreatic insufficiency/chronic pancreatitis and does have chronic loose stools however she stated this was different than her baseline. She is on Creon supplementation at baseline. Vital signs on presentation showed temperature 97.7, heart rate 114, blood pressure 105/64, respiratory rate 28 and pulse ox was 95% on room air. Her CBC showed a mild anemia with a hemoglobin of 11.6 which seems to be close to her baseline. Labs are otherwise unremarkable other than a monocytosis which appears to be chronic. Chemistry panel showed hyponatremia with a sodium of 135 which appears close to where she fluctuates, she was hypokalemic with a potassium of 2.9 and this improved with supplementation. She does have chronic hyperbilirubinemia and her bilirubin was within her normal range. Magnesium level was found to be 1.5 and this was replaced as well. She has chronically low albumin and her lipase was normal. Procalcitonin was mildly elevated at 0.13. Her UA was suggestive of infection so urine culture was sent. Urine culture did finally show Klebsiella oxytocin with the CFU per high-power field greater than 100,000 she was started on ceftriaxone on 08/09/2024. Enteric panel and C. difficile were negative. Her electrolytes were replaced and stable at the time of discharge. She will remain on antibiotics to complete a 10-day course for complicated urinary tract infection with Klebsiella pneumonia. She was treated with ceftriaxone as noted above during her hospital course and discharge with a course of cefdinir to complete antibiotics. She felt that Lasix was making her nauseated so we did transition her from 40 mg p.o. twice daily to Bumex 1 mg p.o. twice daily and she tolerated this much better. She was having some leaking from her paracentesis site so an ostomy bag was placed over the site to collect any extra fluid. This may have been an ongoing problem as she develops more ascites. She may need intermittent paracenteses for this as well. On 08/09/2024 she felt more malaise and had another couple episodes of nausea and loose stool so she was monitored over the next 48 hours and stabilized nicely. She was feeling much better at the time of discharge with no further nausea, vomiting, or significant diarrhea. She does have known loose stool due to her history of pancreatitis which is chronic related to her history of alcoholism. Viral testing was performed and she had a significant lymphocytosis and these were all negative. We did transition her from Zofran to p.o. Haldol for nausea and the seem to be fairly effective as well. She did have an episode of paroxysmal atrial fibrillation that was noted on presentation however she is extremely high risk for GI bleeding due to falls, debility and with her history of cirrhosis so anticoagulation was held with discussion about stroke risk. Her A-fib was brief during her hospitalization and reverted back to normal sinus rhythm and maintained in sinus rhythm throughout the rest of her hospitalization. Her Coreg was discontinued and transition to metoprolol to decrease the effect it has on her blood pressure as she has chronic hypotension and she was maintained on her midodrine. Hold parameters for the metoprolol were placed in her discharge packet. She was able to be discharged back [facility] in stable condition on 08/11/2024. She is to follow-up with Dr. Thompson in the next 4 to 6 weeks for her liver cirrhosis and with her primary care physician with 1 week after discharge from [facility] facility if that were to happen in the future. Discharge diagnoses: Acute Klebsiella UTI Nausea and vomiting-resolved Recurrent acute on chronic diarrhea-chronic component resolved Hypokalemia-resolved Hypomagnesemia-resolved Chronic hypoxic respiratory failure-0 to 2 L at rest and 2 L with exertion Lymphocytosis-resolving Epistaxis-resolved Chronic anemia-stable PAF Alcoholic liver cirrhosis Chronic hyperbilirubinemia Chronic pancreatitis Chronic pain History of tobacco abuse History of alcohol abuse Anxiety Depression Obesity Physical Exam Narrative Patient states overall she feels much better today. No further nausea or vomiting and no diarrhea Const alert, oriented x3, no apparent distress, average body habitus, no limitations and well nourished; Negative for healthy appearing Constitutional Narrative: Obese, upper middle-aged, white female, sitting up in bed, appears much older than stated age, looks much better today and appears as if she is feeling well General Appearance: cooperative, comfortable, well kempt and well developed Exam Limitations: no limitations Nutritional Appearance: obese HEENT normocephalic, head/scalp atraumatic, hearing grossly normal bilaterally and moist oral mucous membranes HEENT Narrative: Mallampati 2-3, no thrush Eyes EOMs intact bilaterally Eyes Narrative: Mild conjunctiva pallor bilaterally, no scleral icterus Resp normal respiratory effort, no retractions, no use of accessory muscles and clear to auscultation bilaterally Auscultation: Negative for rales, rhonchi or wheezes Cardio regular rate, regular rhythm, S1 normal heart sound, S2 normal heart sound, no murmurs, no rub, no gallops and no clicks GI normal to inspection, nondistended, normoactive bowel sounds and soft to palpation; Negative for non-tender GI Narrative: Abdomen slightly distended with no significant fluid wave, mild tenderness, bowel sounds are normal active Extremity normal to inspection, full ROM and no clubbing, cyanosis or edema Extremity Narrative: Trace to 1+ lower extremity edema with no cyanosis or clubbing Neuro oriented x3, moves all extremities and no focal motor deficits Neuro Narrative: Generalized weakness noted but no focal deficits Speech: speech normal Psych affect normal Psych Narrative: appears comfortable, interacts appropriately, eye contact is good Weight / BMI Weight Weight: 82.2 kg Body Mass Index (BMI) 33.1 ABG / Lab / Microbiology Data 08/11/24 06:11 08/11/24 06:11 Laboratory: Laboratory Results - last 24 hr 08/11/24 06:11: WBC 5.6, RBC 3.42 L, Hgb 10.8 L, Hct 32.1 L, MCV 93.9, MCH 31.6, MCHC 33.6, RDW Std Deviation 48.6 H, RDW Coeff of Laxmi 14.3, Plt Count 141 L, MPV 10.3, Immature Gran % (Auto) 0.200, Neut % (Auto) 40.0 L, Lymph % (Auto) 42.7 H, Nicholas % (Auto) 11.7 H, Eos % (Auto) 4.9, Baso % (Auto) 0.5, Absolute Neuts (auto) 2.2, Absolute Lymphs (auto) 2.37, Nucleated RBC % 0, Sodium 138, Potassium 3.6, Chloride 105, Carbon Dioxide 27.0, Anion Gap 6, BUN 4 L, Creatinine 0.55, Estim Creat Clear Calc 69.66, Est GFR (MDRD) Af Amer 143, Est GFR (MDRD) Non-Af 118, B UN/Creatinine Ratio 7.3 L, Glucose 90, Calcium 8.2 L, Magnesium 1.6 Microbiology: Microbiology 08/10/24 18:00 Stool Enteric Bacteriology - Final 08/10/24 18:00 Stool Clostridioides difficile (PCR) - Final 08/09/24 13:25 Mucosa - Nose Respiratory Panel (PCR) - Final 08/09/24 14:30 Nasal Secretion SARS-CoV-2 Antigen (Rapid) - Final 08/05/24 21:09 Urine Catheter - Catheter Urine Culture - Final Klebsiella oxytoca 08/06/24 14:15 Stool Enteric Bacteriology - Final 08/06/24 14:15 Stool Clostridioides difficile (PCR) - Final D/C Instructions Discharge Diet: Low fat / Low cholesterol (2 g sodium restriction/2 L fluid restriction) DC O2, CPAP, BIPAP Needs Home O2 Discharge instructions: Yes Type of respiratory needs?: Oxygen Oxygen frequency: With Ambulation Oxygen liters per minute during Ambulation: 2 and Other (PRN) Other oxygen liters per minute: 2 Other oxygen frequency: PRN DC home with Oxygen: Yes Home O2 MD Review: I have reviewed the oxygen testing, and the patient qualifies for home oxygen equipment and portability. The patient is mobile in the home and the community. Please Follow Up With: Dwayne Thompson DO Meaningful Use Info Meaningful Use Meaningful Use Diagnoses (Choose all that apply): None applicable Ischemic Stroke Statin Dosing Therapy Reference: STATIN DOSE THERAPY REFERENCE: * Patients > 75 years receive moderate or high dose statin therapy. * Patients 75 years or YOUNGER should receive HIGH intensity statin dose unless contraindicated. You will be required to document reason for non-treatment if statin daily dose does not meet guidelines. HIGH DOSE STATIN THERAPY DAILY Atorvastatin > than or = to 40 mg Rosuvastatin > than or = to 20 mg Amlodipine + Atorvastatin > than or = to 2.5/40 mg Ezetimibe + Simvastatin 10/80 mg Simvastatin 80mg Discharge Plan Admission Admit Date/Time: 08/05/24 23:07 Primary Reason for Your Visit: Nausea/vomiting/diarrhea Attending Provider: Melanie Wu Primary Care Provider: Maxim Stokes Consulting Providers: Kelly Rowland; Nader Royal Discharge Orders/Prescriptions Prescriptions: New bumetanide 0.5 mg Tablet 1 mg PO BID Qty: 0 0RF acetaminophen 325 mg Tablet 650 mg PO Q4H PRN PRN (Reason: Fever, pain 1-10) Qty: 0 0RF haloperidol 1 mg Tablet 0.5 mg PO TID PRN (Reason: Nausea/Vomiting) Qty: 0 0RF simethicone 80 mg Tablet,Chewable 80 mg PO TIDPC Qty: 0 0RF metoprolol tartrate 25 mg Tablet 12.5 mg PO BID Qty: 0 0RF Rx Instructions: hold for SBP<90 or HR <60 cefdinir 300 mg capsule 300 mg PO BID Qty: 1 0RF Continued (DME) Adjustable Underwear Misc See Rx Instructions .ROUTE .MEDSUPPLY Qty: 200 3RF Rx Instructions: As directed. Large aripiprazole 10 mg tablet 10 mg PO DAILY Qty: 30 5RF buspirone 10 mg tablet 10 mg PO BID Qty: 60 5RF cholecalciferol (vitamin D3) 50 mcg (2,000 unit) capsule 25 mcg PO DAILY Creon 24,000-76,000 -120,000 unit capsule,delayed release(DR/EC) 1 cap PO TID Rx Instructions: administer with meals and/or snacks potassium chloride 20 mEq tablet extended release 20 meq PO BID midodrine 5 mg Tablet 10 mg PO TIDCM Qty: 0 0RF folic acid 1 mg Tablet 1 mg PO BREAKFAST Qty: 0 0RF nystatin [Nyamyc] 100,000 unit/gram Powder 1 applic topical BID Qty: 0 0RF Protocol: *Topical Application Instructions APPLICATION INSTRUCTIONS: apply to groin menthol-zinc oxide [Calmoseptine] 0.44-20.6 % Ointment 1 applic topical BID Qty: 0 0RF Protocol: *Topical Application Instructions APPLICATION INSTRUCTIONS: apply to buttock trazodone 100 mg Tablet 100 mg PO QHS PRN PRN (Reason: Insomnia) Qty: 0 0RF spironolactone [Aldactone] 25 mg tablet 25 mg PO DAILY (DME) Lift Chair See Rx Instructions .Route .MEDSUPPLY Qty: 1 0RF Rx Instructions: As directed thiamine HCl (vitamin B1) 100 mg tablet 100 mg PO DAILY Qty: 90 3RF ursodiol 250 mg tablet 250 mg PO BID Qty: 60 9RF multivitamin [One Daily Multivitamin] Tablet 1 tab PO DAILY Qty: 90 1RF Discontinued furosemide 40 mg tablet 40 mg PO BID ondansetron HCl 4 mg tablet 4 mg PO Q8H PRN (Reason: nausea and vomiting) carvedilol 3.125 mg Tablet 3.125 mg PO BID Qty: 0 0RF oxycodone 5 mg Tablet 5 mg PO Q6H PRN PRN (Reason: Pain Score 1-10) 2 Days Qty: 5 0RF Referrals / Follow Up: Maxim Stokes MD [Primary Care Provider] - Within 1 Week (After discharge from [facility] facility) Friend,DO Dwayne [Med Staff - Active Staff] - See Referral Note (4 to 6 weeks) Disposition Disposition (needs filled in before D/C Order can be placed): NonSkilled NH/Intermed Care Charges/Coding Visit Charges Inpatient E&M: 21793 SNF Disch >30 Min
--- NOTE | 2024-08-11 14:23 | CASEMGMT ---
Patient is ready to be discharged back to [facility]. Plan: d/c back to [facility] under intermediate level of care. Physicians will transport patient via wheelchair van. Sonia BAILEY
--- NOTE | 2024-08-11 15:28 | CHAPLAIN ---
Type of Pastoral Visit ___ Initial Visit _x__ Follow-up Visit ___ On-call Visit ___ General Patient Visit ___ Spiritual Assessment ___ Family Conference ___ Bereavement ___ Rapid Response ___ Code Blue ___ Other (describe below) Pastoral Care Referral From _x__ Patient ___ Family ___ Nurse ___ Physician ___ Eap Clinician ___ Pad Extractor Tender ___ Other (describe below) Sacrament/Intervention _x__ Active listening ___ Anointing ___ Presybeterian ___ Bereavement ___ Communion ___ Kayla exploration ___ ___ Life review ___ Prayer ___ Reconciliation ___ Sacrament of Sick ___ Supportive presence ___ Wedding ___ Other (describe below) Pastoral Comments this was a follow up visit to patient seen earlier this week; pt is upbeat and states that she is returning to [facility] and looks forward to it; pt states that she is feeling better and has a plan to do better with her health including to refrain from drinking alcohol; pt has notified family but they are at a distance which does not help her situation;
--- NOTE | 2024-08-11 16:04 | CASEMGMT ---
Discharge orders, signed med list and transport time sent to [facility]. Physicians will transport patient by cot at 5:30p. Nursing, SW, and pt updated. Mely Burk DC Planning Asst.
--- NOTE | 2024-08-11 16:27 | NURSING ---
Report called to Rupali at [facility]
== END 2024-08-11 20:40 | disposition intermediate care facility (04) | DRG 690 ==
LOC: ED 22:56 → PCU 23:32
PROVIDERS: Admitting Provider Family Medicine; Emergency Provider Emergency Medicine; PCP Family Medicine; Visit Provider Internal Medicine
DX: N39.0 Urinary tract infection, site not specified (principal); A08.11 Acute gastroenteropathy due to Norwalk agent; F31.81 Bipolar II disorder; J96.11 Chronic respiratory failure with hypoxia; K86.0 Alcohol-induced chronic pancreatitis; E87.1 Hypo-osmolality and hyponatremia; K70.11 Alcoholic hepatitis with ascites; K70.31 Alcoholic cirrhosis of liver with ascites; D63.8 Anemia in other chronic diseases classified elsewhere; Z66 Do not resuscitate; I10 Essential (primary) hypertension; I48.0 Paroxysmal atrial fibrillation; F10.20 Alcohol dependence, uncomplicated; E87.6 Hypokalemia; D72.820 Lymphocytosis (symptomatic); B96.1 Klebsiella pneumoniae [K. pneumoniae] as the cause of diseases classified elsewhere; G89.4 Chronic pain syndrome; Z87.891 Personal history of nicotine dependence; R04.0 Epistaxis; Z11.52 Encounter for screening for COVID-19

== ENCOUNTER → 2024-08-05 | Outpatient (CLI) | payer MEDICARE, MEDICAID, SELFPAY ==
--- NOTE | 2024-08-05 08:08 | US_ITS ---
PROCEDURE: Ultrasound guided paracentesis. DATE OF EXAMINATION: August 05, 2024. INDICATION: Female, 64 years old. Ascites. PHYSICIAN: Pedro Timmons M.D. TECHNIQUE: The risks, benefits, and alternatives to the procedure were explained to the patient. The specific risks of bleeding, infection, and damage to bowel were detailed and accepted. Witnessed informed consent was obtained. The abdomen was ultrasonographically surveyed. An appropriate pocket of fluid was identified at the left lower quadrant. The skin were cleaned and prepped in the usual sterile fashion. Using ultrasound guidance, the peritoneal cavity was accessed with a 5-Montserratian paracentesis needle/catheter system. The trocar was removed. A total of 1300 ml of yung-colored fluid were removed from the peritoneal cavity. The catheter was removed and a sterile dressing was applied. The procedure was well tolerated. US/Paracentesis with US IMPRESSION: Ultrasound guided paracentesis. Electronically Signed: Pedro Timmons MD at 9:15 EST ,
[2024-08-05 08:30] VITALS: BP 98/67; PULSE 103; RESP 18; TEMP 36.7; O2SAT 96
[2024-08-05] MEDS: Lidocaine 2% (20 ml mdv) 20 ML Vial INFILT (08:35)
[2024-08-05 09:06] VITALS: BP 107/62; PULSE 110; RESP 18; O2SAT 97
[2024-08-05 09:11] VITALS: BP 115/68; PULSE 125; RESP 20; O2SAT 95
== END | disposition home or self-care (01) ==
LOC: US 08:05
PROVIDERS: PCP Family Medicine; Referring Provider Nurse Practitioner Family; Visit Provider Nurse Practitioner Family
DX: R18.8 Other ascites (principal)
CPT/HCPCS: 49083

== ENCOUNTER 2024-08-19 18:32 | Emergency (ER) | payer MEDICARE, MEDICAID, SELFPAY ==
[2024-08-19] VITALS (10 sets, daily range): BP systolic 97–109; BP diastolic 60–73; PULSE 90–110; RESP 14–20; TEMP 36.8–37.2; O2SAT 87–96; BMI 29.0
--- NOTE | 2024-08-19 18:58 | RAD_ITS ---
PROCEDURE: CHEST PA AND LATERAL REASON FOR EXAM: COVID. TECHNIQUE: Frontal and lateral views of the chest. COMPARISON: None. FINDINGS: The heart size is normal. The mediastinal contour is unremarkable. Small bilateral pleural effusions. Bibasilar opacities which may represent atelectasis versus infiltrate. Multilevel vertebroplasties. Midthoracic compression deformities. RAD/Chest PA and Lateral IMPRESSION: As above. Reading Location: [id number]
[2024-08-19] MEDS: Potassium Chloride Oral Soln 20 MEQ/15 ML UDC 40 MEQ PO (19:07)
[2024-08-19] MEDS: Albuterol 2.5 MG/3 ML VIAL.NEB. INHALATION (19:23)
--- NOTE | 2024-08-19 19:38 | EX.ED.DYSGE1 ---
HPI History of Present Illness Chief Complaint: Abn Labs Detail of Chief Complaint: Patient was sent in for abnormal labs. She has hypokalemia. She has had d Informant: patient Onset/Context/Timing Onset: - (Hypokalemia is new since August 12, 2024) Context: Sudden Onset Timing: - (Uncertain) Quality: Potassium 2.8 Location: Chronic diarrhea Current Severity: Moderate Maximum Severity: Moderate Worsened by: Suspect not absorbing the potassium that is in a wax matrix tablet. Relieved by: Not applicable Associated Symptoms Associated Symptoms: Viral upper respiratory tract symptoms due to COVID-19 Narrative Narrative: Patient is a 64-year-old woman. She has history of debility, ascites, pancreatic pseudocyst, alcoholic pancreatitis, scoliosis who presents because of hypokalemia. She has chronic diarrhea. Diarrhea is worse since she developed cough that started 3 days ago. Patient had a positive COVID test at the nursing facility. This was not repeated. Her blood work was performed today and recorded under the MDM portion of the EMR. These were not repeated since they were not drastically abnormal. Prior similar symptoms: No Recent Illness/Hospitalization: No [facility] Medical History History of ascites History of cirrhosis Polycythemia Alcoholic hepatitis Pressure sore on buttocks Alcohol abuse Generalized weakness Cystocele History of vertebral compression fracture Debility Venous thromboembolism (VTE) prophylaxis provided within 24 hours of arrival Vertebral compression fracture Intractable low back pain Abnormal CT of the chest Anxiety Chronic back pain Osteoporosis Arthritis Compression fracture of thoracic spine, non-traumatic Pancreatitis Bipolar II disorder Alcohol use disorder, moderate, dependence Hypertension Urinary urgency Marijuana use Shortness of breath on exertion Leg cramps Seborrheic dermatitis Neck pain Bowel incontinence Urinary incontinence Alcoholic pancreatitis Scalp psoriasis Debility Wears contact lenses Anxiety Walker as ambulation aid Injury of head and neck Difficulty swallowing Non-smoker Pain at injection site Compression fracture Depression Alcohol use Osteoporosis Scoliosis Home Medications ?Medication ?Instructions ?Recorded ?Last Taken ?Type Lift Chair #1 ea 12/08/20 Unknown Rx diaper,brief,adult,disposable #200 ea 09/22/23 Unknown Rx (Adjustable Underwear) cholecalciferol (vitamin D3) 50 25 mcg PO DAILY 12/29/23 Unknown History mcg (2,000 unit) capsule thiamine HCl (vitamin B1) 100 mg 100 mg PO DAILY #90 tabs 12/30/23 Unknown Rx tablet aripiprazole 10 mg tablet 10 mg PO DAILY #30 tabs 03/18/24 Unknown Rx buspirone 10 mg tablet 10 mg PO BID #60 tabs 03/18/24 Unknown Rx ursodiol 250 mg tablet 250 mg PO BID #60 TABLETS 04/13/24 Unknown Rx multivitamin (One Daily 1 tab PO DAILY #90 tabs 06/02/24 Unknown Rx Multivitamin tablet) folic acid 1 mg tablet 1 mg PO BREAKFAST #0 tabs 06/15/24 Unknown Rx menthol 0.44 %-zinc oxide 20.6 % 1 applic topical BID #0 grams 06/15/24 Unknown Rx topical ointment (Calmoseptine) midodrine 5 mg tablet 10 mg (2 x 5 mg) PO TIDCM #0 tabs 06/15/24 Unknown Rx nystatin 100,000 unit/gram topical 1 applic topical BID #0 grams 06/15/24 Unknown Rx powder (Nyamyc) trazodone 100 mg tablet 100 mg PO QHS PRN PRN Insomnia #0 06/15/24 Unknown Rx tabs [id number] 1 cap PO TID 07/30/24 Unknown History 24,000-76,000-120,000 unit capsule,delayed rel (Creon) potassium chloride 20 mEq 20 meq PO BID 07/30/24 Unknown History tablet,extended release spironolactone 25 mg tablet 25 mg PO DAILY 08/05/24 Unknown History (Aldactone) acetaminophen 325 mg tablet 650 mg (2 x 325 mg) PO Q4H PRN PRN 08/11/24 Unknown Rx Fever, pain -04/22 #0 tabs bumetanide 0.5 mg tablet 1 mg (2 x 0.5 mg) PO BID #0 tabs 08/11/24 Unknown Rx cefdinir 300 mg capsule 300 mg PO BID #1 cap 08/11/24 Unknown Rx haloperidol 1 mg tablet 1 mg PO TID #12 tabs 08/11/24 Unknown Rx metoprolol tartrate 25 mg tablet 12.5 mg (1/2 x 25 mg) PO BID #0 08/11/24 Unknown Rx tabs simethicone 80 mg chewable tablet 80 mg PO TIDPC #0 tabs 08/11/24 Unknown Rx potassium chloride 40 mEq/15 mL 40 meq (15 mL) PO DAILY #90 mL 08/19/24 Unknown Rx oral liquid Allergy/AdvReac Type Severity Reaction Status Date / Time No Known Allergies Allergy Verified 08/05/24 19:20 Family History (Updated 08/05/24 @ 23:[address] Kelly Rowland MD) Mother Heart disease Osteoporosis Father Lung fibrosis Surgical History History of hip replacement S/P tubal ligation History of esophagogastroduodenoscopy (EGD) Hx of kyphoplasty History of back surgery History of wisdom tooth extraction Hx of total hip arthroplasty S/P kyphoplasty History of tubal ligation Social History household members: none housing: retirement current occupational status: disabled Smoking Status: Former smoker Tobacco: How many years used: 2 Electronic Cigarette Use: not used how long ago did patient quit smoking: Smoked minimally age [age]. second hand exposure: No alcohol intake: former details: Sober since 06/04/24. substance use type: does not use what type of physical activity do you participate in: none seatbelt use: always do you feel safe at home: Yes additional social history: single ROS ROS ED Constitutional Constitutional ED: Reports chills, fever(s), subjective and sweats Eyes Eyes: Denies blurry vision or change in vision ENT ENT ED: Reports rhinorrhea; Denies ear pain or sore throat Cardiovascular Cardiovascular: Denies chest pain, orthopnea, palpitations or paroxysmal nocturnal dyspnea Respiratory/Chest Respiratory/Chest: Reports cough and dyspnea; Denies dyspnea on exertion, orthopnea, paroxysmal nocturnal dyspnea or sputum Gastrointestinal Gastrointestinal: Reports abdominal pain and diarrhea; Denies constipation, nausea or vomiting Genitourinary Genitourinary ED: Denies dysuria, hematuria or urinary frequency Musculoskeletal Musculoskeletal: Reports arthralgias and myalgias Integumentary Denies rash Neurologic Neurologic: Reports headache(s) and weakness Hematologic/Lymphatic Hematologic/Lymphatic: Reports systems reviewed and no addt'l complaints, except as documented EXAM Physical Exam Const Vital Signs: 08/19/24 18:32 08/19/24 18:38 08/19/24 19:25 Temperature 98.2 F Temperature Source Oral Pulse Rate 91 90 Respiratory Rate 17 15 Respiratory Effort Normal Respiratory Pattern Normal Blood Pressure 100/73 Blood Pressure Mean 82 Pulse Ox 91 Oxygen Delivery Method Room Air Oxygen Flow Rate (L/min) 08/19/24 19:32 08/19/24 20:00 08/19/24 21:00 Temperature Temperature Source Pulse Rate 110 H 98 110 H Respiratory Rate 14 Respiratory Effort Respiratory Pattern Blood Pressure 100/68 100/69 109/61 Blood Pressure Mean 78 79 77 Pulse Ox 95 96 87 Oxygen Delivery Method Room Air Oxygen Flow Rate (L/min) 08/19/24 21:02 08/19/24 21:37 Temperature 98.9 F Temperature Source Pulse Rate 99 Respiratory Rate 18 Respiratory Effort Respiratory Pattern Blood Pressure 109/61 Blood Pressure Mean 77 Pulse Ox 92 92 Oxygen Delivery Method Nasal Cannula Oxygen Flow Rate (L/min) 2 Positive well nourished and well developed General Appearance ED: well developed and NAD; Negative for cyanotic, diaphoretic or pallor HEENT Reports moist mucous membranes HEENT Narrative: Head is atraumatic no cephalic. Ears normal. Nares patent. Posterior pharynx is normal. Eyes PERRL and EOMs intact bilaterally General Eye ED: Negative for pale conjunctiva or scleral icterus Neck no lymphadenopathy, supple and no JVD Chest Wall inspection of chest normal and palpation of chest normal Resp normal respiratory effort and No clear to auscultation bilaterally Resp Narrative: Rales at both bases. Auscultation: rhonchi right upper and right lower Cardio regular rate, regular rhythm, S1 normal heart sound, S2 normal heart sound and no murmurs GI normal to inspection, nondistended, normoactive bowel sounds, non-tender, non-distended and no masses; Negative for hepatosplenomegaly Back/Spine no CVA tenderness Extremity General Extremety ED: Yes edema General Extremity: edema Neuro oriented x3 and CN's II-XII intact bilaterally Sensorium / Orientation: alert Psych mental status grossly normal Skin no rashes or lesions noted and no wounds General Skin Exam: Negative for jaundice or pallor MDM MDM MDM Narrative Medical decision making narrative: Patient presented with nursing facility. Her basic metabolic panel reveals a potassium of 2.8, chloride 93, CO2 34. BUN and creatinine are 7 and 0.5 with a BUN/creatinine ratio 14:1. CBC is unremarkable. Patient has a white count of 5.0 with 33% segs and 50% neutrophils. This is a change from baseline and would be consistent with a viral infection. Patient has had a cough for 3 days and had a positive COVID test at the nursing facility. These labs were not repeated in the emergency department. Because she has abnormal oscillatory findings chest x-ray was obtained to assess for pneumonia which would be due to COVID. She also received breathing treatment. Patient was treated with p.o. potassium 40 mg every hour x 2. This is safer less expensive and no contraindication to oral potassium versus IV. Patient's oxygen level improved after aerosol treatment. Her rhonchi improved as well. Radiography Chest X-Ray - ED: 2 View and Read by ED Physician (Evidence of kyphoplasty multiple levels. There is small left pleural effusion. Cardiac silhouette and size normal. Lung parenchyma is unremarkable. Mediastinum is unremarkable.) Diagnostic Testing: Clinical Impression(s) from Imaging Studies Chest X-Ray 08/19/24 18:58 IMPRESSION: As above. Reading Location: [facility] Rhythm Strip Rhythm Strip: Sinus Rhythm Rate: 88 Ectopy: None Management Discussion w/another healthcare provider: Hospitalist (I did speak with the hospital. She informing that when patient was discharged back to the nurse facility she was on oxygen at varied between 0 and 2 L at rest and required more with activityIn light of this and the fact that she is saturating with 2 L at acceptable level to be discharged to home/nu) Treatment and Re-Evaluation :: I was informed at 2128 that patient desaturated 87%. She is present on 2 L. In light of her having COVID hypoxia we will contact hospitalist for admission. Patient was able to drink the potassium chloride 40 mEq x 2.Patient was reassessed. She is no longer wheezing. Discharge Plan Triage Chief Complaint: Abn Labs ED Provider: Akhil Vo Dx/Rx/DC Orders Clinical Impression: COVID-19 virus infection, Cirrhosis, Hypoxia, Acute hypokalemia, Chronic anemia, Acute bronchospasm Instructions: ED Hypokalemia Prescriptions: New potassium chloride 40 mEq/15 mL liquid 40 meq PO DAILY Qty: 90 0RF No Action (DME) Adjustable Underwear Misc See Rx Instructions .ROUTE .MEDSUPPLY Qty: 200 3RF Rx Instructions: As directed. Large aripiprazole 10 mg tablet 10 mg PO DAILY Qty: 30 5RF buspirone 10 mg tablet 10 mg PO BID Qty: 60 5RF cholecalciferol (vitamin D3) 50 mcg (2,000 unit) capsule 25 mcg PO DAILY Creon 24,000-76,000 -120,000 unit capsule,delayed release(DR/EC) 1 cap PO TID Rx Instructions: administer with meals and/or snacks potassium chloride 20 mEq tablet extended release 20 meq PO BID midodrine 5 mg Tablet 10 mg PO TIDCM Qty: 0 0RF folic acid 1 mg Tablet 1 mg PO BREAKFAST Qty: 0 0RF nystatin [Nyamyc] 100,000 unit/gram Powder 1 applic topical BID Qty: 0 0RF Protocol: *Topical Application Instructions APPLICATION INSTRUCTIONS: apply to groin menthol-zinc oxide [Calmoseptine] 0.44-20.6 % Ointment 1 applic topical BID Qty: 0 0RF Protocol: *Topical Application Instructions APPLICATION INSTRUCTIONS: apply to buttock trazodone 100 mg Tablet 100 mg PO QHS PRN PRN (Reason: Insomnia) Qty: 0 0RF spironolactone [Aldactone] 25 mg tablet 25 mg PO DAILY bumetanide 0.5 mg Tablet 1 mg PO BID Qty: 0 0RF acetaminophen 325 mg Tablet 650 mg PO Q4H PRN PRN (Reason: Fever, pain -04/22) Qty: 0 0RF simethicone 80 mg Tablet,Chewable 80 mg PO TIDPC Qty: 0 0RF metoprolol tartrate 25 mg Tablet 12.5 mg PO BID Qty: 0 0RF Rx Instructions: hold for SBP<90 or HR <60 cefdinir 300 mg capsule 300 mg PO BID Qty: 1 0RF haloperidol 1 mg tablet 1 mg PO TID Qty: 12 0RF (DME) Lift Chair See Rx Instructions .Route .MEDSUPPLY Qty: 1 0RF Rx Instructions: As directed thiamine HCl (vitamin B1) 100 mg tablet 100 mg PO DAILY Qty: 90 3RF ursodiol 250 mg tablet 250 mg PO BID Qty: 60 9RF multivitamin [One Daily Multivitamin] Tablet 1 tab PO DAILY Qty: 90 1RF Primary Care Provider: Maxim Stokes Referrals: Maxim Stokes MD [Primary Care Provider] - Activity Restrictions/Additional Instructions: Will need potassium checked in 5 days. Print Language: Divehi Disposition Disposition: Home, Self Care
--- NOTE | 2024-08-19 22:32 | ED.RN ---
physicians ambulance called, eta is 3 hours ([id number])
[2024-08-20 00:18] VITALS: BP 103/71; PULSE 85; RESP 14; O2SAT 95
[2024-08-20 01:00] VITALS: BP 92/61; PULSE 100; RESP 14; O2SAT 93
[2024-08-20 02:00] VITALS: BP 107/65; PULSE 95; RESP 14; O2SAT 94
[2024-08-20 03:00] VITALS: BP 97/59; PULSE 94; RESP 18; O2SAT 95
== END 2024-08-20 03:50 | disposition home or self-care (01) ==
PROVIDERS: Emergency Provider Emergency Medicine; PCP Family Medicine; Referring Provider Emergency Medicine; Visit Provider Emergency Medicine
DX: U07.1 COVID-19 (principal); K74.60 Unspecified cirrhosis of liver; E87.6 Hypokalemia; K52.9 Noninfective gastroenteritis and colitis, unspecified; R09.02 Hypoxemia; D64.9 Anemia, unspecified; I10 Essential (primary) hypertension; M54.9 Dorsalgia, unspecified; G89.29 Other chronic pain; J98.01 Acute bronchospasm; Z79.899 Other long term (current) drug therapy; Z87.891 Personal history of nicotine dependence
CPT/HCPCS: 71046; 94640; 99285; A4216

== ENCOUNTER 2024-08-26 19:50 | Inpatient (IN) | payer MEDICARE, MEDICAID, SELFPAY ==
[2024-08-26] VITALS (8 sets, daily range): BP systolic 104–123; BP diastolic 75–85; PULSE 100–130; RESP 12–14; TEMP 36.7–36.8; O2SAT 95–100; BMI 28.5
--- NOTE | 2024-08-26 20:19 | EKG12_ITS ---
Test Reason : SOB Blood Pressure : */* mmHG Vent. Rate : 142 BPM Atrial Rate : 142 BPM P-R Int : 112 ms QRS Dur : 70 ms QT Int : 330 ms P-R-T Axes : 69 51 246 degrees QTcB Int : 507 ms Critical Test Result: High HR Sinus tachycardia with Premature supraventricular complexes ST & T wave abnormality, consider inferolateral ischemia Abnormal ECG Confirmed by MARI THOMAS, JOSE ([id number]), book or script editor EDITH QUINTERO ([id number]) on 08/30/2024 8:11:07 AM Referred By: ZIA Confirmed By: JOSE GUERRA MD
--- NOTE | 2024-08-26 20:25 | EDS_ITS ---
HPI History of Present Illness Chief Complaint: Shortness of Breath Informant: patient, EMS and SNF Narrative Narrative: 64-year-old female history of alcoholic cirrhosis pancreatitis presenting to the emergency room with abdominal pain vomiting and dyspnea. Patient is COVID-19 positive. She states she had vomiting this morning. This evening she was trying to eat some fruit and a cheeseburger when she had pain in her upper abdomen. She had a paracentesis performed within the past month but has not required recurrent paracentesis. She notes a history of atrial fibrillation. Her biggest complaint is this upper abdominal pain that began with dinner jose armando ght. [facility] Medical History History of ascites History of cirrhosis Polycythemia Alcoholic hepatitis Pressure sore on buttocks Alcohol abuse Generalized weakness Cystocele History of vertebral compression fracture Debility Venous thromboembolism (VTE) prophylaxis provided within 24 hours of arrival Vertebral compression fracture Intractable low back pain Abnormal CT of the chest Anxiety Chronic back pain Osteoporosis Arthritis Compression fracture of thoracic spine, non-traumatic Pancreatitis Bipolar II disorder Alcohol use disorder, moderate, dependence Hypertension Urinary urgency Marijuana use Shortness of breath on exertion Leg cramps Seborrheic dermatitis Neck pain Bowel incontinence Urinary incontinence Alcoholic pancreatitis Scalp psoriasis Debility Wears contact lenses Anxiety Walker as ambulation aid Injury of head and neck Difficulty swallowing Non-smoker Pain at injection site Compression fracture Depression Alcohol use Osteoporosis Scoliosis Home Medications ?Medication ?Instructions ?Recorded ?Last Taken ?Type Lift Chair #1 ea 12/08/20 Unknown Rx diaper,brief,adult,disposable #200 ea 09/22/23 Unknown Rx (Adjustable Underwear) cholecalciferol (vitamin D3) 50 25 mcg PO DAILY Unknown History mcg (2,000 unit) capsule thiamine HCl (vitamin B1) 100 mg 100 mg PO DAILY #90 t abs 12/30/23 Unknown Rx tablet aripiprazole 10 mg tablet 10 mg PO DAILY #30 tabs 12/04 Unknown Rx buspirone 10 mg tablet 10 mg PO BID #60 tabs Unknown Rx ursodiol 250 mg tablet 250 mg PO BID #60 TABLETS Unknown Rx multivitamin (One Daily 1 tab PO DAILY #90 tabs 05/15 Unknown Rx Multivitamin tablet) folic acid 1 mg tablet 1 mg PO BREAKFAST #0 tabs Unknown Rx menthol 0.44 %-zinc oxide 20.6 % 1 applic topical BID #0 grams 06/15/24 Unknown Rx topical ointment (Calmoseptine) midodrine 5 mg tablet 10 mg (2 x 5 mg) PO TIDCM #0 tabs 06/15/24 Unknown Rx nystatin 100,000 unit/gram topical 1 applic topical BI D #0 grams 06/15/24 Unknown Rx powder (Nyamyc) lkheae-zonmymyg-bgssfak 1 cap PO TID 07/30/24 Unknow n History 24,000-76,000-120,000 unit capsule,delayed rel (Creon) potassium chloride 20 mEq 20 meq PO BID 07/30/24 Unkno wn History tablet,extended release spironolactone 25 mg tablet 25 mg PO DAILY 08/05/24 Un known History (Aldactone) acetaminophen 325 mg tablet 650 mg (2 x 325 mg) PO Q4H PRN PRN 08/11/24 Unknown Rx Fever, pain 1-04/22 #0 tabs bumetanide 0.5 mg tablet 1 mg (2 x 0.5 mg) PO BID #0 tabs 08/11/24 Unknown Rx haloperidol 1 mg tablet 1 mg PO TID #12 tabs 5 Unknown Rx metoprolol tartrate 25 mg tablet 12.5 mg (1/2 x 25 mg) PO BID #0 08/11/24 Unknown Rx tabs simethicone 80 mg chewable tablet 80 mg PO TIDPC #0 ta bs 08/11/24 Unknown Rx Allergy/AdvReac Type Severity Reaction Status Date / Time No Known Allergies Allergy Verified 08/26/24 19:55 Family History Mother Heart disease Osteoporosis Father Lung fibrosis Surgical History History of hip replacement S/P tubal ligation History of esophagogastroduodenoscopy (EGD) Hx of kyphoplasty History of back surgery History of wisdom tooth extraction Hx of total hip arthroplasty S/P kyphoplasty History of tubal ligation Social History household members: none housing: longterm current occupational status: disabled Smoking Status: Former smoker Tobacco: How many years used: 2 Electronic Cigarette Use: not used how long ago did patient quit smoking: Smoked minimally age [age]. second hand exposure: No alcohol intake: former details: Sober since 06/04/24. substance use type: does not use what type of physical activity do you participate in: none seatbelt use: always do you feel safe at home: Yes additional social history: single ROS ROS ED Constitutional Constitutional ED: Denies chills, fever(s) or weight loss Eyes Eyes: Denies change in vision or diplopia ENT ENT ED: Denies ear pain, rhinorrhea or sore throat Cardiovascular Cardiovascular: Reports palpitations and racing heartbeat; Denies chest pain or orthopnea Respiratory/Chest Respiratory/Chest: Reports cough and dyspnea; Denies orthopnea Gastrointestinal Gastrointestinal: Reports abdominal pain, nausea and vomiting; Denies diarrhea Genitourinary Genitourinary ED: Denies dysuria, hematuria or urinary frequency Musculoskeletal Musculoskeletal: Reports back pain; Denies arthralgias or myalgias Integumentary Denies abscess or rash Neurologic Neurologic: Denies headache(s) or weakness Psychiatric Psychiatric: Denies anxiety, depression, suicidal ideation or suicidal thoughts Endocrine Endocrinology: Denies polydipsia, polyphagia or polyuria Allergic/Immunologic Allergic/Immunologic ED: Denies mouth swelling, tongue swelling or urticaria EXAM Physical Exam Const Vital Signs: 08/26/24 19:51 08/26/24 19:52 08/26/24 19:57 Temperature 98.2 F Temperature Source Oral Pulse Rate 130 H 130 H Respiratory Rate 14 Respiratory Effort Non-Labored Respiratory Depth Normal Respiratory Pattern Normal Blood Pressure 104/85 H Blood Pressure Mean 91 Pulse Ox 100 Oxygen Delivery Method Nasal Cannula Nasal Cannula Oxygen Flow Rate (L/min) 2 2 08/26/24 20:55 08/26/24 20:59 08/26/24 22:00 Temperature 98.1 F 98.1 F 98.1 F Temperature Source Oral Oral Oral Pulse Rate 120 H 100 101 H Respiratory Rate 12 12 12 Respiratory Effort Respiratory Depth Respiratory Pattern Blood Pressure 115/78 110/76 123/85 H Blood Pressure Mean 90 87 97 Pulse Ox 99 99 98 Oxygen Delivery Method Nasal Cannula Nasal Cannula Nasal Cannula Oxygen Flow Rate (L/min) 2 2 2 08/26/24 23:00 08/26/24 23:11 Temperature 98.2 F Temperature Source Pulse Rate 103 H 103 H Respiratory Rate 14 14 Respiratory Effort Respiratory Depth Respiratory Pattern Blood Pressure 113/75 113/75 Blood Pressure Mean 87 87 Pulse Ox 95 95 Oxygen Delivery Method Nasal Cannula Oxygen Flow Rate (L/min) 2 Positive well nourished and well developed General Appearance ED: well developed HEENT Reports normocephalic, head/scalp atraumatic and moist mucous membranes Eyes PERRL and EOMs intact bilaterally Neck no lymphadenopathy, supple and no JVD Resp normal respiratory effort and clear to auscultation bilaterally Cardio Rate: tachycardic Rhythm: abnormal rhythm irregularly irregular GI normal to inspection, nondistended, normoactive bowel sounds GI Narrative: Abdomen is distended but not tense. It is tender to palpation diffusely. There does not appear to be involuntary guarding. Auscultation: normoactive bowel sounds Palpation: soft Back/Spine no CVA tenderness and normal ROM Extremity normal to inspection General Extremety ED: Negative for edema General Extremity: Negative for edema Neuro oriented x3 and CN's II-XII intact bilaterally Sensorium / Orientation: alert Motor Exam: strength 5/5 throughout Psych mental status grossly normal Mood & Affect: Negative for depressed or tearful Skin no rashes or lesions noted and no wounds MDM MDM MDM Narrative Medical decision making narrative: Differential diagnosis includes cardiac dysrhythmia electrolyte abnormalities bowel obstruction pancreatitis COVID-19/viral syndrome Patient is COVID-19 previously diagnosed. My independent interpretation of the chest x-ray is no acute process. Patient received metoprolol for her A-fib with RVR which has slowed her rate down considerably now around 100. White count returns at 9.1 hemoglobin 12.4 platelet count is 150. BMP shows potassium of 3.4 creatinine 1.05 magnesium 1.5 glucose 146. Chronic elevation of her LFTs but slightly higher bilirubin the normal 3.8 with a direct bilirubin of 1.88 AST 59 lipase is less than 10 ammonia level is [address] then pelvis was obtained. This demonstrates some air-fluid levels in the small bowel. Please see the radiologist read for full details. I discussed the CT and full with on- call surgery Dr. Kennedy. Given that her pain is epigastric with a normal white count and no right lower quadrant pain I do not think that appendicitis is l likely. I think she most likely has an ileus related to the COVID-19. Recommendation for surgery is to admit for continued observation/monitoring. The abdomen I continue to not feel is surgical in nature. It is still soft. Bowel sounds. She continues to have some tenderness in the epigastrium. No right lower quadrant tenderness. No white count. History & Record Review Discussion w/independent historian: Patient Additional record(s) reviewed:: Prior inpatient record, Prior ED visit, Prior labs and No prior records Lab Data Attestation: I reviewed the patient's lab results. Labs: Laboratory Results - last 24 hr 08/26/24 20:20 WBC 9.1 RBC 3.97 L Hgb 12.4 Hct 35.1 L MCV 88.4 MCH 31.2 MCHC 35.3 RDW Std Deviation 49.6 H RDW Coeff of Laxmi 15.7 H Plt Count 150 MPV 12.7 H Immature Gran % (Auto) 0.300 Neut % (Auto) 42.3 L Lymph % (Auto) 44.4 H [place] % (Auto) 10.2 H Eos % (Auto) 2.4 Baso % (Auto) 0.4 Absolute Neuts (auto) 3.9 Absolute Lymphs (auto) 4.05 Nucleated RBC % 0 PT 19.8 H INR 1.7 APTT 29.9 Sodium 136 Potassium 3.4 L Chloride 95 L Carbon Dioxide 28.0 Anion Gap 13 BUN 13 Creatinine 1.05 H Estim Creat Clear Calc 49.23 Est GFR (MDRD) Af Amer 68 Est GFR (MDRD) Non-Af 56 L BUN/Creatinine Ratio 12.4 Glucose 146 H Calcium 9.3 Magnesium 1.5 L Total Bilirubin 3.80 H Direct Bilirubin 1.88 H AST 59 H ALT 22 Alkaline Phosphatase 238 H Ammonia 58.0 H Total Protein 8.6 H Albumin 2.2 L Globulin 6.4 H Lipase < 10 L Radiography Diagnostic Testing: Clinical Impression(s) from Imaging Studies Chest X-Ray 08/26/24 20:30 IMPRESSION: Small left pleural effusion with adjacent atelectasis. Reading Location: [facility]EDS AT [facility] Abdomen/Pelvis CT 08/26/24 20:59 IMPRESSION: 1. Fluid-filled dilated loops of small bowel with scattered air-fluid levels and adjacent mild ascites and engorgement of the adjacent vessels. There is a questionable transition point in the anterior mid abdominal pelvic region with mild decompressed distal small bowel loops. Findings may relate to a small bowel obstruction and/or ileus. 2. Dilated appendix with wall thickening and subtle periappendiceal stranding which is new in the interim. Findings are indeterminate for an early acute appendicitis. 3. Fatty wall infiltration involving the cecum, ascending colon, and transverse colon which can relate to chronic inflammatory changes. 4. Cholelithiasis. 5. Mild urinary bladder wall thickening with mild perivesicular stranding. Correlate for cystitis. 6. Unchanged soft tissue nodular density measuring 2.2 cm in the posterior aspect of the pelvis in a presacral location is indeterminate for an enlarged lymph node or mass. 7. Small left and trace right pleural effusions with adjacent airspace consolidations. 8. Additional findings as above. One or more dose reduction techniques were used (e.g., Automated exposure control, adjustment of the mA and/or kV according to patient size, use of iterative reconstruction technique). Reading Location: [facility]EDS AT [facility] Chest CTA 08/26/24 20:59 IMPRESSION: 1. No CT evidence of pulmonary embolism. 2. Small left and trace right pleural effusions with adjacent dependent airspace consolidations. 3. Additional findings as above. One or more dose reduction techniques were used (e.g., Automated exposure control, adjustment of the mA and/or kV according to patient size, use of iterative reconstruction technique). Reading Location: [facility] BEDS AT [facility] EKG Initial EKG: Attestation: I personally reviewed and interpreted this EKG as follows: Comments: Afib RVR 142 bpm Management Discussion w/another healthcare provider: Hospitalist (Dr. Mccormick) and [employer] Process[employer] Manager (Dr. Kennedy) Discharge Plan Dx/Rx/DC Orders Clinical Impression: Cirrhosis, COVID-19, Ileus, Increased ammonia level, Abdominal pain, Atrial fibrillation with RVR Disposition Disposition: Acute Care Hospital [facility]
[2024-08-26 20:27] LABS: Absolute Lymphocyte Count 4.05 X10^3/uL (0.83-4.51); Absolute Neutrophil Count 3.9 X10^3/uL (2.0-7.7); Basophil# 0.04 X10^3/uL; Basophil% 0.4 % (0-1); Eosinophil# 0.22 X10^3/uL; Eosinophils% 2.4 % (0-5); Hematocrit 35.1 % (37-47); Hemoglobin 12.4 g/dL (12.0-15.0); Lymphocyte # 4.05 X10^3/ul (0.83-4.51); Lymphocyte % 44.4 % (19-41); Mean Corp Hgb Conc 35.3 g/dL (32-36); Mean Corpuscular Hgb 31.2 pg (27.0-32.0); Mean Corpuscular Volume 88.4 fL (81-99); Mean Platelet Vol. 12.7 fl (6.2-12.0); Monocyte# 0.93 X10^3/uL; Monocyte% 10.2 % (0-10); NRBC Flagged by Analyzer 0 % (0-5); Neutrophil # 3.86 X10^3/uL (2.7-7.7); Neutrophil % 42.3 % (47-70); Platelet Count 150 K/mm3 (150-450); RBC Distribution Width CV 15.7 % (11.6-14.6); RBC Distribution Width SD 49.6 fl (35.1-43.9); Red Blood Count 3.97 M/mm3 (4.2-5.4); White Blood Count 9.1 K/mm3 (4.4-11.0)
--- NOTE | 2024-08-26 20:30 | RAD_ITS ---
PROCEDURE: CHEST 1 VIEW (PORTABLE) REASON FOR EXAM: Dyspnea. COVID-19. TECHNIQUE: Frontal view of the chest. COMPARISON: Chest x-ray from 08/19/2024. FINDINGS: Cardiac size is within normal limits. There is blunting of the left costophrenic angle related to a small left pleural effusion with adjacent atelectasis. There is hyperinflation of the lungs. No pneumothorax is present. Degenerative changes are identified. There is levoscoliosis of the mid to upper thoracic spine. Multilevel vertebroplasties are seen. RAD/Chest 1 View (Portable) IMPRESSION: Small left pleural effusion with adjacent atelectasis. Reading Location: [facility]
[2024-08-26 20:35] LABS: International Normalized Ratio 1.7; Partial Thromboplast Time 29.9 Seconds (24.1-36.2); Prothrombin Time (Protime)PT. 19.8 SECONDS (11.7-14.9)
[2024-08-26] MEDS: 0.9% Normal Saline (1000mL) 1,000 ML 1000 ML IV (20:35)
[2024-08-26] MEDS: Metoprolol Tartrate 5 MG/5 ML Vial IV ×2 (20:35→20:55)
[2024-08-26 20:45] LABS: AST(SGOT) 59 U/L (15-37); Alanine Aminotransfer ALT/SGPT 22 U/L (13-56); Albumin, Serum 2.2 g/dL (3.2-5.0); Alkaline Phosphatase 238 U/L (45-117); Anion Gap 13 (5-15); BUN 13 mg/dL (7-18); BUN/Creat Ratio 12.4 RATIO (10-20); Bilirubin, Direct 1.88 mg/dL (0.00-0.30); Calcium,Total 9.3 mg/dL (8.5-10.1); Chloride 95 mmol/L (98-107); Creatinine, Serum 1.05 mg/dL (0.55-1.02); EST Glomerular Filtration Rate 56 mL/min (>60); Est Glom Filt Rate - Afr Amer 68 mL/min (>60); Estimated Creatinine Clearance 49.23 ml/min; Globulin 6.4 g/dL (2.2-4.2); Glucose 146 mg/dL (74-106); Lipase < 10 U/L (73-393); Potassium 3.4 mmol/L (3.5-5.1); Protein, Total 8.6 g/dL (6.4-8.2); Sodium Level 136 mmol/L (136-145)
--- NOTE | 2024-08-26 20:59 | CT_ITS ---
PROCEDURE: CTA CHEST W/WO CONTRAST REASON FOR EXAM: COVID positive. Pulmonary embolism. TECHNIQUE: CTA imaging of the chest with intravenous contrast. 3D coronal and sagittal MIP's are obtained. 2D sagittal and coronal reformatted images were provided. COMPARISON: Chest x-ray from 08/26/2024. CTA chest from 06/12/2024. FINDINGS: There is no evidence of pulmonary embolism. Cardiac size is within normal limits. Thoracic aorta demonstrates normal caliber. No significant coronary artery calcifications are identified. There are small mediastinal lymph nodes. No pericardial effusion is identified. There is a small left and trace right pleural effusions with adjacent dependent airspace consolidations. Evaluation of the lung parenchyma demonstrates biapical scarring. No pneumothorax is present. Central airway is patent. Evaluation of the osseous structures demonstrates degenerative changes. There is a chronic fracture deformity of the manubrium. There are chronic anterior wedge compression fractures of T7 and T8. Multilevel vertebroplasties are identified. CT/CTA Chest W/WO Contrast IMPRESSION: 1. No CT evidence of pulmonary embolism. 2. Small left and trace right pleural effusions with adjacent dependent airspac e consolidations. 3. Additional findings as above. One or more dose reduction techniques were used (e.g., Automated exposure contr ol, adjustment of the mA and/or kV according to patient size, use of iterative reconstruction technique). Reading [facility]
--- NOTE | 2024-08-26 20:59 | CT_ITS ---
PROCEDURE: CT ABDOMEN/PELVIS W IV CONTRAST REASON FOR EXAM: Abdominal pain. Vomiting. Pancreatitis. TECHNIQUE: Abdomen and pelvis CT with intravenous contrast. Coronal and sagittal 2D reformatted images were provided for better evaluation. COMPARISON: CT abdomen/pelvis from 07/18/2024. FINDINGS: Lung bases demonstrates a small left and trace right pleural effusion with adjacent dependent airspace consolidations. Liver and spleen enhance homogeneously. There is cholelithiasis. There is atrophy of the head of the pancreas. Punctate pancreatic calcifications may relate to chronic pancreatitis. Abdominal aorta demonstrates normal caliber with mild atherosclerotic calcifications. Bilateral adrenal glands are unremarkable. Bilateral kidneys enhance homogeneously without hydronephrosis. There is a nonobstructing right renal stone measuring 12 mm. There is a nonobstructing right renal stone measuring 2.5 mm. There is a punctate calcification involving the left renal cortex with adjacent cortical thinning/scarring. There is trace ascites adjacent to the lateral hepatic margin. Urinary bladder demonstrates mild wall thickening with mild perivesicular stranding. Uterus is present. There is moderate retained stool in the rectum. Colonic diverticulosis is identified without diverticulitis. There is fatty wall thickening of the cecum, ascending colon, and majority of the transverse colon which may relate to chronic inflammatory changes. Appendix is dilated measuring 10 mm in diameter with wall thickening as well as subtle periappendiceal stranding and is new in the interim. There are fluid-filled dilated loops of small bowel in the central abdominopelvic region with maximal diameter measuring approximately 4 cm with mild interspersed ascites. There is a questionable transition point in the anterior mid abdominal pelvic region (image 70 of 117) with mild decompressed distal small bowel loops. There is mild presacral stranding. There is a nodular soft tissue density in the presacral region in the pelvis measuring approximately 2.2 x 2.1 cm and is not significantly changed. No free air is identified. Evaluation of the osseous structures demonstrates multilevel degenerative changes. Multilevel vertebroplasties are identified with chronic compression deformities. Right hip arthroplasty is present. CT/Abdomen/Pelvis W IV Cont ONLY IMPRESSION: 1. Fluid-filled dilated loops of small bowel with scattered air-fluid levels an d adjacent mild ascites and engorgement of the adjacent vessels. There is a questionable transition point in the anterior mid abdominal pelvic region with mild decompressed distal small bowel loops. Findings may relate to a small bowel obstruction and /or ileus. 2. Dilated appendix with wall thickening and subtle periappendiceal stranding w hich is new in the interim. Findings are indeterminate for an early acute appendicitis. 3. Fatty wall infiltration involving the cecum, ascending colon, and transverse colon which can relate to chronic inflammatory changes. 4. Cholelithiasis. 5. Mild urinary bladder wall thickening with mild perivesicular stranding. Cor relate for cystitis. 6. Unchanged soft tissue nodular density measuring 2.2 cm in the posterior aspe ct of the pelvis in a presacral location is indeterminate for an enlarged lymph node or mass. 7. Small left and trace right pleural effusions with adjacent airspace consolid ations. 8. Additional findings as above. One or more dose reduction techniques were used (e.g., Automated exposure contr ol, adjustment of the mA and/or kV according to patient size, use of iterative reconstruction technique). Reading Location: [facility]
[2024-08-26 21:17] LABS: Magnesium 1.5 mg/dL (1.6-2.6)
[2024-08-26] MEDS: Ondansetron 4 MG/2 ML Vial IV (23:15)
--- NOTE | 2024-08-26 23:20 | ED.RN ---
Avenue called, update given on plan of care of patient by this RN. No further questions at this time.
--- NOTE | 2024-08-26 23:47 | HP.PCM.HOS_ITS ---
[facility] - [facility] General Date of Admission: 08/27/24 Date of Service: 08/26/24 Chief Complaint: Abdominal Pain, Nausea, Vomiting and SOB. HPI Narrative PRASHANT WHITNEY, is a 64 F with a past medical history of essential hypertension; metoprolol, bumetanide and spironolactone, overweight; with BMI of 28.5 this admission, history of VTE; not on anticoagulation, history of cirrhosis with ascites due to chronic EtOH abuse (allegedly quit 05/2024) with recent paracentesis within the last month, history of alcoholic pancreatitis; on pancreatic enzymes with meals plus prn simethicone, history of orthostatic hypotension; on midodrine, history of polycythemia, history of bipolar II disorder; on buspirone, haloperidol and aripiprazole, history of cannabis abuse, history of tubal ligation, history of cystocele, history of bowel and bladder incontinence, history of pressure sore on buttocks, scoliosis, osteoporosis; with history of vertebral compression fractures treated with L1-L2 kyphoplasty (2020), OA; s/p Right THR and previous back surgery with chronic back pain and chronic debility; with patient using a walker to mobilize at baseline and recently diagnosed COVID-19 who presents to [facility] ER complaining of abdominal pain, nausea, vomiting and shortness of breath. Ms. Whitney reports her symptoms began earlier this morning with the patient feeling short of breath with subsequent recent diagnosis of COVID-19. Then this morning she developed nausea with bilious emesis. This transiently improved until she ate a cheeseburger and some fruit this evening with the abrupt-onset of severe pain in her upper abdomen and she was then sent in to the ER for further evaluation and treatment. She admits to palpitations and heart racing with abdominal pain that is mainly in the epigastrium and periumbilical areas in addition to back pain plus shortness of breath and cough that is nonproductive. She denies associated fever, chills, visual changes, runny nose, sore throat, ear pain, headache, paresthesias or focal neurologic deficits. In the ER she was noted to have EKG evidence of Atrial Fibrillation; with Rapid Ventricular Response of ~130 bpm with rate decreasing to ~100 bpm after 2 doses of IV metoprolol. She then underwent CT scan of the abdomen and pelvis that revealed fluid-filled dilated loops of small bowel with scattered air-fluid levels and adjacent mild ascites and engorgement of the adjacent vessels with questionable transition point in the anterior mid abdominal pelvic region with mild decompressed distal small bowel loops with findings that may relate to a small bowel obstruction and/or ileus in addition to dilated appendix with wall thickening and subtle periappendiceal stranding which is new in the interim findings are indeterminate for an early acute pancreatitis with the ER physician then speaking to the general surgeon on-call who favored likely ileus and doubted the diagnosis of appendicitis with subsequent recommendation to admit this patient to the hospitalist service with formal surgical consultation pending in the a.m. She was also noted to have laboratory evidence of Hypokalemia of 3.4 mmol/L, Hypomagnesemia of 1.5 mg/dL and Hyperbilirubinemia with a Total Bilirubin of 3.8 mg/dL, Direct Bilirubin of 1.88 mg/dL, AST of 59 units/L and ALT of 22 units/L with Alkaline Phosphatase of 238 units/L plus Hyperammonemia with level of 58 ?mol/L present on admission. She was then admitted to the PCU for ongoing care for a stay that is expected to extend beyond 2 midnights. [facility] Medical History (Updated 08/27/24 @ 01:[address] Miguel Silva, DO) History of ascites History of cirrhosis Ileus Polycythemia Alcoholic hepatitis Pressure sore on buttocks Alcohol abuse Generalized weakness Cystocele History of vertebral compression fracture Debility Venous thromboembolism (VTE) prophylaxis provided within 24 hours of arrival Vertebral compression fracture Intractable low back pain Abnormal CT of the chest Anxiety Chronic back pain Osteoporosis Arthritis Compression fracture of thoracic spine, non-traumatic Pancreatitis Bipolar II disorder Alcohol use disorder, moderate, dependence Hypertension Urinary urgency Marijuana use Shortness of breath on exertion Leg cramps Seborrheic dermatitis Neck pain Bowel incontinence Urinary incontinence Alcoholic pancreatitis Scalp psoriasis Debility Wears contact lenses Anxiety Walker as ambulation aid Injury of head and neck Difficulty swallowing Non-smoker Pain at injection site Compression fracture Depression Alcohol use Osteoporosis Scoliosis Home Medications ?Medication ?Instructions ?Recorded ?Last Taken ?Type Lift Chair #1 ea 12/08/20 Unknown Rx diaper,brief,adult,disposable #200 ea 09/22/23 Unknown Rx (Adjustable Underwear) cholecalciferol (vitamin D3) 50 25 mcg PO DAILY supple ment 12/29/23 08/26/24 History mcg (2,000 unit) capsule thiamine HCl (vitamin B1) 100 mg 100 mg PO DAILY #90 t abs 12/30/23 08/26/24 Rx tablet aripiprazole 10 mg tablet 10 mg PO DAILY #30 tabs 12/0408/26/24 Rx buspirone 10 mg tablet 10 mg PO BID #60 tabs 08/26/24 Rx ursodiol 250 mg tablet 250 mg PO BID #60 TABLETS 08/26/24 Rx multivitamin (One Daily 1 tab PO DAILY #90 tabs 11/08/26/24 Rx Multivitamin tablet) folic acid 1 mg tablet 1 mg PO BREAKFAST #0 tabs 08/26/24 Rx menthol 0.44 %-zinc oxide 20.6 % 1 applic topical BID #0 grams 06/15/24 08/26/24 Rx topical ointment (Calmoseptine) midodrine 5 mg tablet 10 mg (2 x 5 mg) PO TIDCM #0 tabs 06/15/24 08/25/24 Rx nystatin 100,000 unit/gram topical 1 applic topical BI D #0 grams 06/15/24 08/26/24 Rx powder (Nyamyc) [id number] 1 cap PO TID Pancreatic Enzy me 07/30/24 08/26/24 History 24,000-76,000-120,000 unit capsule,delayed rel (Creon) potassium chloride 20 mEq 20 meq PO BID SUPPLEMENT 08/26/24 History tablet,extended release spironolactone 25 mg tablet 25 mg PO DAILY Diuretic 08/26/24 History (Aldactone) acetaminophen 325 mg tablet 650 mg (2 x 325 mg) PO Q4H PRN PRN 08/11/24 Unknown Rx Fever, pain -04/22 #0 tabs bumetanide 0.5 mg tablet 1 mg (2 x 0.5 mg) PO BID #0 tabs 08/11/24 08/26/24 Rx metoprolol tartrate 25 mg tablet 12.5 mg (1/2 x 25 mg) PO BID #0 08/11/24 08/26/24 Rx tabs simethicone 80 mg chewable tablet 80 mg PO TIDPC #0 ta bs 08/11/24 08/26/24 Rx haloperidol 1 mg tablet 0.5 mg PO TID PRN nausea and 08/27/24 08/26/24 16:45 History vomiting Allergy/AdvReac Type Severity Reaction Status Date / Time No Known Allergies Allergy Verified 08/27/24 01:46 Family History Mother Heart disease Osteoporosis Father Lung fibrosis Surgical History History of hip replacement S/P tubal ligation History of esophagogastroduodenoscopy (EGD) Hx of kyphoplasty History of back surgery History of wisdom tooth extraction Hx of total hip arthroplasty S/P kyphoplasty History of tubal ligation Social History household members: none housing: prison current occupational status: disabled Smoking Status: Former smoker Tobacco: How many years used: 2 Electronic Cigarette Use: not used how long ago did patient quit smoking: Smoked minimally age [age]. second hand exposure: No alcohol intake: former details: Sober since 06/04/24. substance use type: does not use what type of physical activity do you participate in: none seatbelt use: always do you feel safe at home: Yes additional social history: single ROS ROS Narrative Review of Systems: Constitutional: Patient denies fever, chills or weight loss. Eyes: Patient denies changes in vision or discharge from eyes. ENT: Patient denies runny nose, sore throat or ear pain. Resp: Patient admits to shortness of breath and nonproductive cough. CV: Patient admits to palpitations and heart racing with A-fib with RVR noted on admission. GI: Patient admits to severe abdominal pain after eating this evening focused in periumbilical and epigastric regions with nausea and bilious emesis. She denies diarrhea. : Patient admits to chronic urinary incontinence but she denies dysuria, hematuria or urinary frequency. MSK: Patient admits to chronic back pain but she denies arthralgias or myalgias. Skin: Patient admits to mild yellow discoloration of skin but she denies wounds or abscess. Site: Patient denies symptoms of uncontrolled depression or anxiety. Neuro: Patient denies headache, paresthesias or focal neurologic deficits. Allergy: Patient denies lip swelling, tongue swelling or urticaria. Hematology: Patient denies easy bleeding or easy bruisability. Endocrinology: Patient denies polyuria, polydipsia or polyphagia. 14 point review of systems otherwise negative save for positives noted above in HPI. Vital Signs Vital Signs Vital Signs: 08/26/24 19:51 08/26/24 19:52 08/26/24 19:57 Temperature 98.2 F Temperature Source Oral Pulse Rate 130 H 130 H Respiratory Rate 14 Respiratory Effort Non-Labored Respiratory Depth Normal Respiratory Pattern Normal Blood Pressure 104/85 H Blood Pressure Mean 91 Pulse Ox 100 Oxygen Delivery Method Nasal Cannula Nasal Cannula Oxygen Flow Rate (L/min) 2 2 08/26/24 20:55 08/26/24 20:59 08/26/24 22:00 Temperature 98.1 F 98.1 F 98.1 F Temperature Source Oral Oral Oral Pulse Rate 120 H 100 101 H Respiratory Rate 12 12 12 Respiratory Effort Respiratory Depth Respiratory Pattern Blood Pressure 115/78 110/76 123/85 H Blood Pressure Mean 90 87 97 Pulse Ox 99 99 98 Oxygen Delivery Method Nasal Cannula Nasal Cannula Nasal Cannula Oxygen Flow Rate (L/min) 2 2 2 08/26/24 23:00 08/26/24 23:11 Temperature 98.2 F Temperature Source Pulse Rate 103 H 103 H Respiratory Rate 14 14 Respiratory Effort Respiratory Depth Respiratory Pattern Blood Pressure 113/75 113/75 Blood Pressure Mean 87 87 Pulse Ox 95 95 Oxygen Delivery Method Nasal Cannula Oxygen Flow Rate (L/min) 2 Weight Weight: 156 lb 1.396 oz Body Mass Index (BMI) 28.5 Physical Exam Const alert, oriented x3 and no apparent distress Constitutional Narrative: Patient overweight and appears older than her stated age. General Appearance: cooperative HEENT normocephalic, head/scalp atraumatic, hearing grossly normal bilaterally and moist oral mucous membranes Eyes PERRL and EOMs intact bilaterally Eyes Narrative: Mild scleral icterus noted. Neck no lymphadenopathy and supple Resp normal respiratory effort, no retractions, no use of accessory muscles and clear to auscultation bilaterally Cardio Cardio Narrative: Irregularly irregular at ~100 bpm. GI GI Narrative: Abdomen is mildly distended but not tense with diffuse tenderness to palpation with involuntary guarding but normoactive bowel sounds. Extremity normal to inspection, full ROM and no clubbing, cyanosis or edema Skin Skin Narrative: Patient has mild yellowish discoloration of skin but there are no rashes, wounds or abscess. Neuro oriented x3, CN's II-XII intact bilaterally, moves all extremities and no focal motor deficits Sensorium / Orientation: awake, alert, oriented to person, oriented to place and oriented to time Speech: speech normal Psych affect normal Results Medical Records Data Attestation: I reviewed the patient's medical records Lab / Micro Data Attestation: I reviewed the patient's lab results. 08/27/24 03:57 08/27/24 03:57 Labs: Laboratory Results - last 24 hr 08/26/24 20:20: WBC 9.1, RBC 3.97 L, Hgb 12.4, Hct 35.1 L, MCV 88.4, MCH 31.2, MCHC 35.3, RDW Std Deviation 49.6 H, RDW Coeff of Laxmi 15.7 H, Plt Count 150, MPV 12.7 H, Immature Gran % (Auto) 0.300, Neut % (Auto) 42.3 L, Lymph % (Auto) 44.4 H, [place] % (Auto) 10.2 H, Eos % (Auto) 2.4, Baso % (Auto) 0.4, Absolute Neuts (auto) 3.9, Absolute Lymphs (auto) 4.05, Nucleated RBC % 0, PT 19.8 H, INR 1.7, APTT 29.9, Sodium 136, Potassium 3.4 L, Chloride 95 L, Carbon Dioxide 28.0, Anion Gap 13, BUN 13, Creatinine 1.05 H, Estim Creat Clear Calc 49.23, Est GFR (MDRD) Af Amer 68, Est GFR (MDRD) Non-Af 56 L, BUN/Creatinine Ratio 12.4, G lucose 146 H, Calcium 9.3, Magnesium 1.5 L, Total Bilirubin 3.80 H, Direct Bilirubin 1.88 H, AST 59 H, ALT 22, Alkaline Phosphatase 238 H, Ammonia 58.0 H, Total Protein 8.6 H, Albumin 2.2 L, Globulin 6.4 H, Lipase < 10 L Imaging Radiology Impression Chest X-Ray 08/26/24 20:30 IMPRESSION: Small left pleural effusion with adjacent atelectasis. [facility]Pelvis CT 08/26/24 20:59 IMPRESSION: 1. Fluid-filled dilated loops of small bowel with scattered air-fluid levels and adjacent mild ascites and engorgement of the adjacent vessels. There is a questionable transition point in the anterior mid abdominal pelvic region with mild decompressed distal small bowel loops. Findings may relate to a small bowel obstruction and/or ileus. 2. Dilated appendix with wall thickening and subtle periappendiceal stranding which is new in the interim. Findings are indeterminate for an early acute appendicitis. 3. Fatty wall infiltration involving the cecum, ascending colon, and transverse colon which can relate to chronic inflammatory changes. 4. Cholelithiasis. 5. Mild urinary bladder wall thickening with mild perivesicular stranding. Correlate for cystitis. 6. Unchanged soft tissue nodular density measuring 2.2 cm in the posterior aspect of the pelvis in a presacral location is indeterminate for an enlarged lymph node or mass. 7. Small left and trace right pleural effusions with adjacent airspace consolidations. 8. Additional findings as above. One or more dose reduction techniques were used (e.g., Automated exposure control, adjustment of the mA and/or kV according to patient size, use of iterative reconstruction technique). Reading [facility] Chest CTA 08/26/24 20:59 IMPRESSION: 1. No CT evidence of pulmonary embolism. 2. Small left and trace right pleural effusions with adjacent dependent airspace consolidations. 3. Additional findings as above. One or more dose reduction techniques were used (e.g., Automated exposure control, adjustment of the mA and/or kV according to patient size, use of iterative reconstruction technique). Reading Location: [facility] Assessment & Plan Assessment/Plan (1) Atrial fibrillation with RVR: (2) Appendicitis: QUALIFIERS: Acute appendicitis type: unspecified acute appendicitis type Appendicitis type: acute appendicitis Qualified Code(s): K 35.80 - Unspecified acute appendicitis (3) Ileus: (4) Abdominal pain: QUALIFIERS: Abdominal location: periumbilical Qualified Code(s): R10.33 - Periumbilical pain (5) Intractable nausea and vomiting: (6) COVID-19: (7) Hypokalemia: (8) Hypomagnesemia: (9) History of cirrhosis: (10) History of ascites: PLAN: Plan 1. Atrial Fibrillation; with Rapid Ventricular Response of ~130 bpm with rate decreasing to ~100 bpm after 2 doses of IV metoprolol - Admit to PCU. Continue rate control with IV digoxin with goal to keep heart rate < 100 bpm. Avoid anticoagulation with possible impending surgery. Check TSH to evaluate for potential hyperthyroidism that may be contributing to this issue. 2. CT scan of the abdomen and pelvis that revealed fluid-filled dilated loops of small bowel with scattered air-fluid levels and adjacent mild ascites and engorgement of the adjacent vessels with questionable transition point in the anterior mid abdominal pelvic region with mild decompressed distal small bowel loops with findings that may relate to a small bowel obstruction and/or ileus in addition to dilated appendix with wall thickening and subtle periappendiceal stranding which is new in the interim findings are indeterminate for an early acute pancreatitis with the ER physician then speaking to the general surgeon on-call who favored likely ileus and doubted the diagnosis of appendicitis with subsequent recommendation to admit this patient to the hospitalist service with formal surgical consultation pending in the a.m. with Intractable Nausea and Vomiting complicating #1 - Patient was noted to have a BM shortly after her arrival on the PCU suggesting ileus may be resolving. Give ketorolac prn for [id number] (level 1-5/10) pain or fever. Give ondansetron prn for nausea or vomiting. Give promethazine prn for breakthrough nausea and vomiting. Place scopolamine patch to control persistent nausea. Give morphine IV prn for severe (level 6-10/10) pain. Recheck KUB in AM to reassess for possible improvement after BM. Finally, we will consult general surgeon on-call to see this patient on-rounds in the AM for further recommendations with help appreciated in advance. 3. Recently diagnosed COVID-19 with SOB compounding #1 & #2 - Stable with patient having minimal symptoms at this time related to this issue. 4. Hypokalemia of 3.4 mmol/L and Hypomagnesemia of 1.5 mg/dL present in admission adding to the medical complexity of #1 - #3 - Give supplemental IV KCl and magnesium sulfate and then recheck levels to confirm repletion. 5. History of Cirrhosis with Ascites due to former chronic EtOH abuse (allegedly quit 05/2024) with recent paracentesis within the last month with Hyperbilirubinemia with a Total Bilirubin of 3.8 mg/dL, Direct Bilirubin of 1.88 mg/dL, AST of 59 units/L and ALT of 22 units/L with Alkaline Phosphatase of 238 units/L plus Hyperammonemia with level of 58 ?mol/L present on admission adding to the medical complexity of #1 - #4 - Continue supportive care and monitor CMP daily to follow trend. Patient is supposed to be set up for a TIPS procedure soon with preliminary process already underway with plans to proceed when she is deemed medically stable. 6. History of alcoholic pancreatitis; on pancreatic enzymes with meals plus prn simethicone - Patient NPO for now. 7. Essential Hypertension; metoprolol, bumetanide and spironolactone - Hold scheduled antihypertensives until patient cleared for oral intake. Give hydralazine IV prn for systolic blood pressure > 160 mmHg. 8. Overweight; with BMI of 28.5 this admission - Weight loss will be recommended. Check TSH. 9. History of VTE; not on anticoagulation - Noted. 10. History of orthostatic hypotension; on midodrine - Restart this agent once she can safely take oral medications. 11. History of polycythemia - Stable with hemoglobin of 12.4 g/dL and hematocrit of 35.1%. 12. History of bipolar II disorder; on buspirone, haloperidol and aripiprazole - Noted. 13. History of cannabis abuse - Noted. Cannabis Cessation will be strongly encouraged. 14. History of tubal ligation - Noted for the sake of completeness. 15. History of cystocele; with history of bladder incontinence - Noted. 16. History of bowel incontinence - Noted. 17. History of pressure sore on buttocks - Noted with no evidence of recurrence at this time. 18. Scoliosis with osteoporosis; with history of vertebral compression fractures treated with L1-L2 kyphoplasty (2020) - Stable. 19. OA; s/p Right THR and previous back surgery with chronic back pain and chronic debility; with patient using a walker to mobilize at baseline - Stable. 20. DVT/GI prophylaxis - SCD's only in case patient requires surgical intervention. Pantoprazole 40 mg IV daily. Total time: Approximately (but not less than) 75 minutes. Charges/Coding Visit Charges Inpatient E&M: 82593 Init Hosp L3
[2024-08-27] VITALS (23 sets, daily range): BP systolic 90–109; BP diastolic 52–75; PULSE 95–144; RESP 13–23; TEMP 36.1–36.9; O2SAT 87–98; BMI 26.7
[2024-08-27] MEDS: 0.9% Normal Saline (1000mL) 1,000 ML 100 ML IV (02:39)
[2024-08-27 02:41] LABS: Alcohol, Blood (Medical)-Serum < 3.0 mg/dL
[2024-08-27] MEDS: Magnesium Sulfate 2 GM in Dextrose 5%-Water (100mL Bag) 100 ML IV (02:41)
[2024-08-27 02:47] LABS: Troponin-I HS 21 pg/mL (3.0-54.0)
[2024-08-27] MEDS: Potassium Phosphate 40 MM in 0.9% Normal Saline (500mL Bag) 500 ML 62.5 MM IV (02:47)
[2024-08-27 02:48] LABS: Vitamin B12 1429 pg/mL (211-911)
[2024-08-27] MEDS: Scopolamine 1mg/72hr Patch 1 PATCH TD (02:48)
[2024-08-27] MEDS: Digoxin 250 MCG/ML Ampul 125 MCG IV (03:01)
[2024-08-27] MEDS: Piperacil/Tazobactam 3.375 GM in 0.9% Normal Saline (50mL MB+) 50 ML IV ×3 (03:01→22:56)
[2024-08-27 03:14] LABS: Phosphorus 3.9 mg/dL (2.5-4.9)
[2024-08-27 04:12] LABS: Basophil# 0.04 X10^3/uL; Basophil% 0.6 % (0-1); Eosinophil# 0.22 X10^3/uL; Hematocrit 32.1 % (37-47); Hemoglobin 11.3 g/dL (12.0-15.0); Lymphocyte % 31.7 % (19-41); Mean Corp Hgb Conc 35.2 g/dL (32-36); Mean Corpuscular Hgb 31.3 pg (27.0-32.0); Mean Corpuscular Volume 88.9 fL (81-99); Mean Platelet Vol. 12.3 fl (6.2-12.0); Monocyte# 0.71 X10^3/uL; Monocyte% 9.8 % (0-10); NRBC Flagged by Analyzer 0 % (0-5); Neutrophil # 3.97 X10^3/uL (2.7-7.7); Neutrophil % 54.6 % (47-70); Platelet Count 125 K/mm3 (150-450); RBC Distribution Width CV 15.9 % (11.6-14.6); RBC Distribution Width SD 50.6 fl (35.1-43.9); Red Blood Count 3.61 M/mm3 (4.2-5.4); White Blood Count 7.3 K/mm3 (4.4-11.0)
[2024-08-27 04:30] LABS: Troponin-I HS 21 pg/mL (3.0-54.0)
[2024-08-27 04:36] LABS: ALB/GLOB Ratio 0.4 RATIO (0.9-2.4); AST(SGOT) 50 U/L (15-37); Alanine Aminotransfer ALT/SGPT 18 U/L (13-56); Albumin, Serum 2.1 g/dL (3.2-5.0); Alkaline Phosphatase 209 U/L (45-117); Anion Gap 10 (5-15); BUN 11 mg/dL (7-18); BUN/Creat Ratio 12.7 RATIO (10-20); Calcium,Total 8.7 mg/dL (8.5-10.1); Chloride 100 mmol/L (98-107); Creatinine, Serum 0.87 mg/dL (0.55-1.02); EST Glomerular Filtration Rate 70 mL/min (>60); Est Glom Filt Rate - Afr Amer 84 mL/min (>60); Estimated Creatinine Clearance 57.58 ml/min; Globulin 5.5 g/dL (2.2-4.2); Glucose 140 mg/dL (74-106); Potassium 3.4 mmol/L (3.5-5.1); Protein, Total 7.6 g/dL (6.4-8.2); Sodium Level 136 mmol/L (136-145)
--- NOTE | 2024-08-27 05:20 | RAD_ITS ---
PROCEDURE: ABDOMEN SINGLE VIEW (PORTABLE) REASON FOR EXAM: Ileus versus small-bowel obstruction with nausea vomiting TECHNIQUE: Supine and upright views of the abdomen. COMPARISON: None. FINDINGS: Bowel gas pattern is normal. No evidence of bowel obstruction. No free air. No suspicious calcifications. Multilevel vertebroplasties. RAD/Abdomen Single View (Portable) IMPRESSION: Nonspecific bowel gas pattern. Reading Location: [facility]
[2024-08-27 07:33] LABS: Amphetamine Urine NEGATIVE (<1000 ng/mL); Barbiturate Urine VISTA NEGATIVE (< 200 ng/mL); Benzodiazepine Urine VISTA NEGATIVE (< 200 ng/mL); Cocaine Urine VISTA NEGATIVE (< 300 ng/mL); Ecstacy Urine VISTA NEGATIVE (< 500 ng/mL); Methadone Urine VISTA NEGATIVE (< 300 ng/mL); PCP Urine VISTA NEGATIVE (< 25 ng/mL); THC Urine VISTA NEGATIVE (< 50 ng/mL); Vista UDS pH Range 5
[2024-08-27 08:37] LABS: T4 Free Direct 1.72 ng/dL (0.76-1.46); Troponin-I HS 22 pg/mL (3.0-54.0)
[2024-08-27] MEDS: Nystatin Powder 15gm Bottle 1 APPLIC TOPICAL ×2 (10:38→22:57)
--- NOTE | 2024-08-27 11:37 | CASEMGMT ---
VIJAY confirmed with patient that her plan is to return to [place] at discharge. Plan: d/c back to [place] under intermediate level of care. Physicians will transport patient via wheelchair van. Sonia BAILEY
--- NOTE | 2024-08-27 11:44 | CASEMGMT ---
Updates sent to [facility]. Pt is not skilled and can return when MR. Mely Burk DC Planning Asst.
--- NOTE | 2024-08-27 13:48 | EX.PCM.CON.S ---
Assessment & Plan Assessment/Plan (1) Intractable nausea and vomiting: PLAN: The patient is a 64-year-old female with multiple medical problems but most notable for alcoholic cirrhosis and chronic pancreatitis admitted with abdominal pain, nausea and vomiting. Imaging while seen in the emergency room showed questionable appendicitis however clinically she really has no right lower quadrant abdominal pain and I do not feel that this is the case clinically. Review of the images do seem to indicate some dilated loops of small bowel which could be from ileus versus small bowel obstruction however she is currently passing flatus and having bowel movements indicating resolution of ileus versus possible bowel obstruction. At this point I have no surgical plans. She would be a very poor surgical candidate due to her liver pathology. I have advanced her diet to clears. Hopefully she will tolerate diet. Would encourage ambulation. Will continue to follow from a surgical standpoint. HPI Consult Data Date of Consult: 08/27/24 HPI Narrative Reason for Consultation: Ileus versus small bowel obstruction; rule out appendicitis HPI Narrative: PRASHANT MAZARIEGOS, is a 64 F who presented to the emergency department at [facility] last evening with complaints of nausea, vomiting, and abdominal pain. She has multiple medical problems. One of her most significant medical problems is cirrhosis with ascites due to chronic alcohol abuse. She currently quit in the fall 2023. She has had several abdominal paracenteses performed. The last paracentesis was about a month ago. She has issues with alcoholic pancreatitis. She was also recently diagnosed with COVID. She was seen last evening by the emergency department for these complaints. She states that yesterday morning she had shortness of breath as well as nausea and vomiting. Her symptoms seemed to improve but only worsened in the evening after she ate a cheeseburger. This prompted significant upper abdominal pain and she went to the emergency room for further evaluation. She was found to have A-fib RVR on arrival but this was controlled with beta-blockers. Blood work showed low potassium low magnesium and an elevated bilirubin level likely related to her chronic liver issues. CT scan was performed and showed some dilated loops of fluid-filled small bowel with air-fluid levels concerning for small bowel obstruction with a questionable transition point versus ileus. There was also mention made of some thickening into the appendix as well as possible mild stranding. Clinically she had no complaints of right lower quadrant pain. White count was normal. Patient was made n.p.o. and was admitted to the medicine service. Overnight she had 3 bowel movements and has been passing flatus. She states that she does feel improved however she is still having some persistent upper abdominal pain. She denies any right lower quadrant pain. Nausea seems minimal at this point. Surgical consult was obtained to help with management [facility] Medical History (Updated 08/27/24 @ 01:[address] Miguel Silva, DO) History of ascites History of cirrhosis Ileus Polycythemia Alcoholic hepatitis Pressure sore on buttocks Alcohol abuse Generalized weakness Cystocele History of vertebral compression fracture Debility Venous thromboembolism (VTE) prophylaxis provided within 24 hours of arrival Vertebral compression fracture Intractable low back pain Abnormal CT of the chest Anxiety Chronic back pain Osteoporosis Arthritis Compression fracture of thoracic spine, non-traumatic Pancreatitis Bipolar II disorder Alcohol use disorder, moderate, dependence Hypertension Urinary urgency Marijuana use Shortness of breath on exertion Leg cramps Seborrheic dermatitis Neck pain Bowel incontinence Urinary incontinence Alcoholic pancreatitis Scalp psoriasis Debility Wears contact lenses Anxiety Walker as ambulation aid Injury of head and neck Difficulty swallowing Non-smoker Pain at injection site Compression fracture Depression Alcohol use Osteoporosis Scoliosis Home Medications ?Medication ?Instructions ?Recorded ?Last Taken ?Type Lift Chair #1 ea 12/08/20 Unknown Rx diaper,brief,adult,disposable #200 ea 09/22/23 Unknown Rx (Adjustable Underwear) cholecalciferol (vitamin D3) 50 25 mcg PO DAILY supplement 12/29/23 08/26/24 History mcg (2,000 unit) capsule thiamine HCl (vitamin B1) 100 mg 100 mg PO DAILY #90 tabs 12/30/23 08/26/24 Rx tablet aripiprazole 10 mg tablet 10 mg PO DAILY #30 tabs 03/18/24 08/26/24 Rx buspirone 10 mg tablet 10 mg PO BID #60 tabs 03/18/24 08/26/24 Rx ursodiol 250 mg tablet 250 mg PO BID #60 TABLETS 04/13/24 08/26/24 Rx multivitamin (One Daily 1 tab PO DAILY #90 tabs 06/02/24 08/26/24 Rx Multivitamin tablet) folic acid 1 mg tablet 1 mg PO BREAKFAST #0 tabs 06/15/24 08/26/24 Rx menthol 0.44 %-zinc oxide 20.6 % 1 applic topical BID #0 grams 06/15/24 08/26/24 Rx topical ointment (Calmoseptine) midodrine 5 mg tablet 10 mg (2 x 5 mg) PO TIDCM #0 tabs 06/15/24 08/25/24 Rx nystatin 100,000 unit/gram topical 1 applic topical BID #0 grams 06/15/24 08/26/24 Rx powder (Nyamyc) [id number] 1 cap PO TID Pancreatic Enzyme 07/30/24 08/26/24 History 24,000-76,000-120,000 unit capsule,delayed rel (Creon) potassium chloride 20 mEq 20 meq PO BID SUPPLEMENT 07/30/24 08/26/24 History tablet,extended release spironolactone 25 mg tablet 25 mg PO DAILY Diuretic 08/05/24 08/26/24 History (Aldactone) acetaminophen 325 mg tablet 650 mg (2 x 325 mg) PO Q4H PRN PRN 08/11/24 Unknown Rx Fever, pain 1-04/22 #0 tabs bumetanide 0.5 mg tablet 1 mg (2 x 0.5 mg) PO BID #0 tabs 08/11/24 08/26/24 Rx metoprolol tartrate 25 mg tablet 12.5 mg (1/2 x 25 mg) PO BID #0 08/11/24 08/26/24 Rx tabs simethicone 80 mg chewable tablet 80 mg PO TIDPC #0 tabs 08/11/24 08/26/24 Rx haloperidol 1 mg tablet 0.5 mg PO TID PRN nausea and 08/27/24 08/26/24 16:45 History vomiting Allergy/AdvReac Type Severity Reaction Status Date / Time No Known Allergies Allergy Verified 08/27/24 01:46 Family History Mother Heart disease Osteoporosis Father Lung fibrosis Surgical History History of hip replacement S/P tubal ligation History of esophagogastroduodenoscopy (EGD) Hx of kyphoplasty History of back surgery History of wisdom tooth extraction Hx of total hip arthroplasty S/P kyphoplasty History of tubal ligation Social History household members: none housing: [facility] current occupational status: disabled Smoking Status: Former smoker Tobacco: How many years used: 2 Electronic Cigarette Use: not used how long ago did patient quit smoking: Smoked minimally age [age]. second hand exposure: No alcohol intake: former details: Sober since 06/04/24. substance use type: does not use what type of physical activity do you participate in: none seatbelt use: always do you feel safe at home: Yes additional social history: single Physical Exam Narrative The patient is alert and oriented x 3. She is in no acute distress. Head is normocephalic and atraumatic. Pupils are equal round and reactive to light. Abdomen is soft and slightly distended. There is mild tenderness to palpation mostly in the upper abdomen. There is no rebound or guarding. There is no tenderness whatsoever in the right lower quadrant. Lab / Micro Data 08/27/24 03:57 08/27/24 03:57 Labs: Laboratory Results - last 24 hr 08/26/24 20:20: WBC 9.1, RBC 3.97 L, Hgb 12.4, Hct 35.1 L, MCV 88.4, MCH 31.2, MCHC 35.3, RDW Std Deviation 49.6 H, RDW Coeff of Laxmi 15.7 H, Plt Count 150, MPV 12.7 H, Immature Gran % (Auto) 0.300, Neut % (Auto) 42.3 L, Lymph % (Auto) 44.4 H, [place] % (Auto) 10.2 H, Eos % (Auto) 2.4, Baso % (Auto) 0.4, Absolute Neuts (auto) 3.9, Absolute Lymphs (auto) 4.05, Nucleated RBC % 0, PT 19.8 H, INR 1.7, APTT 29.9, Sodium 136, Potassium 3.4 L, Chloride 95 L, Carbon Dioxide 28.0, Anion Gap 13, BUN 13, Creatinine 1.05 H, Estim Creat Clear Calc 49.23, Est GFR (MDRD) Af Amer 68, Est GFR (MDRD) Non-Af 56 L, BUN/Creatinine Ratio 12.4, Glucose 146 H, Calcium 9.3, Magnesium 1.5 L, Total Bilirubin 3.80 H, Direct Bilirubin 1.88 H, AST 59 H, ALT 22, Alkaline Phosphatase 238 H, Ammonia 58.0 H, Total Protein 8.6 H, Albumin 2.2 L, Globulin 6.4 H, Lipase < 10 L 08/27/24 02:00: Phosphorus 3.9, Troponin I High Sens 21, Vitamin B12 1429 H, Folate 23.40, TSH 0.180 L, Ethyl Alcohol < 3.0 08/27/24 03:57: WBC 7.3, RBC 3.61 L, Hgb 11.3 L, Hct 32.1 L, MCV 88.9, MCH 31.3, MCHC 35.2, RDW Std Deviation 50.6 H, RDW Coeff of Laxmi 15.9 H, Plt Count 125 L, MPV 12.3 H, Immature Gran % (Auto) 0.300, Neut % (Auto) 54.6, Lymph % (Auto) 31.7, [place] % (Auto) 9.8, Eos % (Auto) 3.0, Baso % (Auto) 0.6, Absolute Neuts (auto) 4.0, Absolute Lymphs (auto) 2.30, Nucleated RBC % 0, Sodium 136, Potassium 3.4 L, Chloride 100, Carbon Dioxide 26.0, Anion Gap 10, BUN 11, Creatinine 0.87, Estim Creat Clear Calc 57.58, Est GFR (MDRD) Af Amer 84, Est GFR (MDRD) Non-Af 70, BUN/Creatinine Ratio 12.7, Glucose 140 H, Calcium 8.7, Total Bilirubin 3.30 H, AST 50 H, ALT 18, Alkaline Phosphatase 209 H, Ammonia 45.0 H, Troponin I High Sens 21, Total Protein 7.6, Albumin 2.1 L, Globulin 5.5 H, Albumin/Globulin Ratio 0.4 L 08/27/24 06:30: Urine Opiates Screen NEGATIVE, Urine Methadone Screen NEGATIVE, Ur Barbiturates Screen NEGATIVE, Ur Phencyclidine Scrn NEGATIVE, Ur Amphetamines Screen NEGATIVE, MDMA (Ecstasy) Screen NEGATIVE, U Benzodiazepines Scrn NEGATIVE, Urine Cocaine Screen NEGATIVE, U Cannabinoids Screen NEGATIVE, Ur Drug Screen Comment 08/27/24 08:00: Troponin I High Sens 22, Free T4 1.72 H, Free T3 pg/dL 2.0 L Micro: Microbiology 08/27/24 04:00 Mucosa - Nasopharyngeal SARS-CoV-2, Influenza & RSV (PCR) - Final SARS-CoV-2 (COVID 19) Imaging Radiology Impression Chest X-Ray 08/26/24 20:30 IMPRESSION: Small left pleural effusion with adjacent atelectasis. Reading Location: [facility] Abdomen/Pelvis CT 08/26/24 20:59 IMPRESSION: 1. Fluid-filled dilated loops of small bowel with scattered air-fluid levels and adjacent mild ascites and engorgement of the adjacent vessels. There is a questionable transition point in the anterior mid abdominal pelvic region with mild decompressed distal small bowel loops. Findings may relate to a small bowel obstruction and/or ileus. 2. Dilated appendix with wall thickening and subtle periappendiceal stranding which is new in the interim. Findings are indeterminate for an early acute appendicitis. 3. Fatty wall infiltration involving the cecum, ascending colon, and transverse colon which can relate to chronic inflammatory changes. 4. Cholelithiasis. 5. Mild urinary bladder wall thickening with mild perivesicular stranding. Correlate for cystitis. 6. Unchanged soft tissue nodular density measuring 2.2 cm in the posterior aspect of the pelvis in a presacral location is indeterminate for an enlarged lymph node or mass. 7. Small left and trace right pleural effusions with adjacent airspace consolidations. 8. Additional findings as above. One or more dose reduction techniques were used (e.g., Automated exposure control, adjustment of the mA and/or kV according to patient size, use of iterative reconstruction technique). Reading Location: [facility] Chest CTA 08/26/24 20:59 IMPRESSION: 1. No CT evidence of pulmonary embolism. 2. Small left and trace right pleural effusions with adjacent dependent airspace consolidations. 3. Additional findings as above. One or more dose reduction techniques were used (e.g., Automated exposure control, adjustment of the mA and/or kV according to patient size, use of iterative reconstruction technique). Reading Location: [facility] KUB X-Ray 08/27/24 05:20 IMPRESSION: Nonspecific bowel gas pattern. Reading Location: [facility]
--- NOTE | 2024-08-27 18:37 | PCM.PN.HOSP ---
Reason for Visit Reason for Visit: Diagnoses Hypomagnesemia (08/27/24) Hypokalemia (08/27/24) Unspecified atrial fibrillation (08/27/24) Unspecified acute appendicitis (08/27/24) Ileus, unspecified (08/27/24) Periumbilical pain (08/27/24) Unspecified abdominal pain (08/27/24) Nausea with vomiting, unspecified (08/27/24) COVID-19 (08/27/24) Personal history of other diseases of the digestive system (08/27/24) Personal history of other specified conditions (08/27/24) Subjective Subjective Patient was seen and examined today, surgery does not feel they need to do any invasive surgery at this time, they put the patient on clear liquids and feel that the patient is passing flatus and stool. They feel she probably has an ileus. Patient appears to be in atrial fib with a varying ventricular rate of 130-150 at times. Patient was placed back on oral metoprolol today and I have increased her digoxin and gave her an extra of IV digoxin today. I am not restarting the patient's diuretics due to her low blood pressure. Patient will resume her midodrine however. Objective Data Objective Data Vital Signs: Vital Signs Temp Pulse Resp BP Pulse Ox O2 Del Method O2 Flow Rate 97 F L 115 H 16 96/62 94 Room Air 2 08/27/24 10:00 08/27/24 15:00 08/27/24 15:00 08/27/24 15:00 08/27/24 15:00 08/27/24 15:00 08/27/24 14:00 Oxygen Flow Rate (L/min) 2 Oxygen Delivery Method Room Air Weight: 66.3 kg Body Mass Index (BMI) 26.7 Intake & Output: Intake and Output for Last 24 Hours 08/25/24 08/26/24 08/27/24 23:59 23:59 23:59 Intake Total 1000 / 1000 1667.3333 / 1667.3333 Output Total 250 / 250 Balance 1000 / 1000 1417.3333 / 1417.3333 Medical Nutrition Assessment Dietitian: Malnutrition Criteria Met Start: 08/27/24 15:02 Freq: Status: Active Protocol: Document 08/27/24 15:02 SB (Rec: 08/27/24 15:02 SB [id number]) Nutrition Malnutrition Evidence of Yes Malnutrition Exists Evidenced By Suboptimal Energy Intake (Severe),Weight Loss (Severe) Clinical Problem Acute Disease or Injury Related Malnutrition Etiology severe related to inadequate oral intake Signs/Symptoms as evidenced by PO meeting <50% of estimated nutrition needs x 3 weeks and 14% unintentional weight loss x 3 weeks. Status Active Problem Recommendation Dietitian Recommend advanced diet as tolerated to liberal regular Recommendations/ diet d/t signs and symptoms of malnutrition. Changes As diet is advanced will order chocolate fortified pudding TID with meals. Will monitor weight trends. Reviewed and approved by Jacy Martinez, RD, LD. Lab / Micro Data 08/27/24 03:57 08/27/24 03:57 Labs: Laboratory Results - last 24 hr 08/26/24 20:20: WBC 9.1, RBC 3.97 L, Hgb 12.4, Hct 35.1 L, MCV 88.4, MCH 31.2, MCHC 35.3, RDW Std Deviation 49.6 H, RDW Coeff of Laxmi 15.7 H, Plt Count 150, MPV 12.7 H, Immature Gran % (Auto) 0.300, Neut % (Auto) 42.3 L, Lymph % (Auto) 44.4 H, [place] % (Auto) 10.2 H, Eos % (Auto) 2.4, Baso % (Auto) 0.4, Absolute Neuts (auto) 3.9, Absolute Lymphs (auto) 4.05, Nucleated RBC % 0, PT 19.8 H, INR 1.7, APTT 29.9, Sodium 136, Potassium 3.4 L, Chloride 95 L, Carbon Dioxide 28.0, Anion Gap 13, BUN 13, Creatinine 1.05 H, Estim Creat Clear Calc 49.23, Est GFR (MDRD) Af Amer 68, Est GFR (MDRD) Non-Af 56 L, BUN/Creatinine Ratio 12.4, Glucose 146 H, Calcium 9.3, Magnesium 1.5 L, Total Bilirubin 3.80 H, Direct Bilirubin 1.88 H, AST 59 H, ALT 22, Alkaline Phosphatase 238 H, Ammonia 58.0 H, Total Protein 8.6 H, Albumin 2.2 L, Globulin 6.4 H, Lipase < 10 L 08/27/24 02:00: Phosphorus 3.9, Troponin I High Sens 21, Vitamin B12 1429 H, Folate 23.40, TSH 0.180 L, Ethyl Alcohol < 3.0 08/27/24 03:57: WBC 7.3, RBC 3.61 L, Hgb 11.3 L, Hct 32.1 L, MCV 88.9, MCH 31.3, MCHC 35.2, RDW Std Deviation 50.6 H, RDW Coeff of Laxmi 15.9 H, Plt Count 125 L, MPV 12.3 H, Immature Gran % (Auto) 0.300, Neut % (Auto) 54.6, Lymph % (Auto) 31.7, [place] % (Auto) 9.8, Eos % (Auto) 3.0, Baso % (Auto) 0.6, Absolute Neuts (auto) 4.0, Absolute Lymphs (auto) 2.30, Nucleated RBC % 0, Sodium 136, Potassium 3.4 L, Chloride 100, Carbon Dioxide 26.0, Anion Gap 10, BUN 11, Creatinine 0.87, Estim Creat Clear Calc 57.58, Est GFR (MDRD) Af Amer 84, Est GFR (MDRD) Non-Af 70, BUN/Creatinine Ratio 12.7, Glucose 140 H, Calcium 8.7, Total Bilirubin 3.30 H, AST 50 H, ALT 18, Alkaline Phosphatase 209 H, Ammonia 45.0 H, Troponin I High Sens 21, Total Protein 7.6, Albumin 2.1 L, Globulin 5.5 H, Albumin/Globulin Ratio 0.4 L 08/27/24 06:30: Urine Opiates Screen NEGATIVE, Urine Methadone Screen NEGATIVE, Ur Barbiturates Screen NEGATIVE, Ur Phencyclidine Scrn NEGATIVE, Ur Amphetamines Screen NEGATIVE, MDMA (Ecstasy) Screen NEGATIVE, U Benzodiazepines Scrn NEGATIVE, Urine Cocaine Screen NEGATIVE, U Cannabinoids Screen NEGATIVE, Ur Drug Screen Comment 08/27/24 08:00: Troponin I High Sens 22, Free T4 1.72 H, Free T3 pg/dL 2.0 L Micro: Microbiology 08/27/24 04:00 Mucosa - Nasopharyngeal SARS-CoV-2, Influenza & RSV (PCR) - Final SARS-CoV-2 (COVID 19) Radiography Diagnostic Testing: Radiology Impression Chest X-Ray 08/26/24 20:30 IMPRESSION: Small left pleural effusion with adjacent atelectasis. Reading Location: [facility] Abdomen/Pelvis CT 08/26/24 20:59 IMPRESSION: 1. Fluid-filled dilated loops of small bowel with scattered air-fluid levels and adjacent mild ascites and engorgement of the adjacent vessels. There is a questionable transition point in the anterior mid abdominal pelvic region with mild decompressed distal small bowel loops. Findings may relate to a small bowel obstruction and/or ileus. 2. Dilated appendix with wall thickening and subtle periappendiceal stranding which is new in the interim. Findings are indeterminate for an early acute appendicitis. 3. Fatty wall infiltration involving the cecum, ascending colon, and transverse colon which can relate to chronic inflammatory changes. 4. Cholelithiasis. 5. Mild urinary bladder wall thickening with mild perivesicular stranding. Correlate for cystitis. 6. Unchanged soft tissue nodular density measuring 2.2 cm in the posterior aspect of the pelvis in a presacral location is indeterminate for an enlarged lymph node or mass. 7. Small left and trace right pleural effusions with adjacent airspace consolidations. 8. Additional findings as above. One or more dose reduction techniques were used (e.g., Automated exposure control, adjustment of the mA and/or kV according to patient size, use of iterative reconstruction technique). Reading Location: [facility] Chest CTA 08/26/24 20:59 IMPRESSION: 1. No CT evidence of pulmonary embolism. 2. Small left and trace right pleural effusions with adjacent dependent airspace consolidations. 3. Additional findings as above. One or more dose reduction techniques were used (e.g., Automated exposure control, adjustment of the mA and/or kV according to patient size, use of iterative reconstruction technique). Reading Location: [facility] KUB X-Ray 08/27/24 05:20 IMPRESSION: Nonspecific bowel gas pattern. Reading Location: [facility] Physical Exam Const alert, oriented x3 and no apparent distress General Appearance: cooperative, well kempt and well developed Orientation / Consciousness: awake, oriented to person, oriented to place and oriented to time HEENT normocephalic, head/scalp atraumatic and moist oral mucous membranes Eyes PERRL, EOMs intact bilaterally and conjunctivae normal Neck supple, no JVD, thyroid normal and no carotid bruits General: trachea midline Resp normal respiratory effort, no retractions, no use of accessory muscles and clear to auscultation bilaterally Auscultation: Negative for rales, rhonchi or wheezes Cardio no murmurs, no rub and no gallops Cardio Narrative: Heart rate and rhythm irregular GI normal to inspection, nondistended, normoactive bowel sounds, soft to palpation and non-distended GI Narrative: There is slight abdominal tenderness to palpation over the abdomen Extremity no clubbing, cyanosis or edema Skin no rashes or lesions noted General Skin Exam: no breakdown Neuro oriented x3, CN's II-XII intact bilaterally, moves all extremities, no focal motor deficits and no sensory deficits noted Sensorium / Orientation: awake and alert Speech: speech normal Psych affect normal Assessment & Plan Assessment/Plan (1) Hyperthyroidism determined by thyroid function test: (2) Atrial fibrillation with RVR: PLAN: Plan 1. Ileus-patient is passing flatus and stool according to surgery, no surgical intervention is anticipated at this time #2 paroxysmal atrial fibrillation with RVR-I have elected to keep the patient on digoxin, she had an extra dose given today and her maintenance dosage was increased, patient is on a beta-christy, her blood pressure has been in the 90s systolic so the beta-christy cannot be increased at this time. #3 cirrhosis secondary to past alcohol use syndrome-this appears to be stable at this time #4 bipolar disorder-patient will remain on her present psych meds Total clinical time spent by myself addressing the patient's medical issues, reviewing all her data, and collaborating with patient's care team: 35 minutes Charges/Coding Visit Charges Inpatient E&M: 73950 Subs Hosp L2
[2024-08-27] MEDS: 0.9% Saline Lock 10 ML Syringe IV (19:00)
[2024-08-27] MEDS: Metoprolol Tartrate 5 MG/5 ML Vial IV (19:00)
[2024-08-27] MEDS: Digoxin 250 MCG/ML Ampul IV (19:02)
[2024-08-27] MEDS: ARIPiprazole 10 MG Tablet PO (19:04)
--- NOTE | 2024-08-27 20:04 | US_ITS ---
PROCEDURE: THYROID WITH DOPPLER ULTRASOUND REASON FOR EXAM: 64-year-old female, new onset hyperthyroidism with persistent AFib with RVR. TECHNIQUE: Thyroid ultrasound with Doppler COMPARISON: CTA chest 08/26/2024. FINDINGS: Right thyroid lobe measures 5.3 x 2.3 x 2.3 cm. Left thyroid lobe measures 5.6 x 2.0 x 2.4 cm. Isthmus thickness is0.4 cm. Thyroid Size: Normal Background Echotexture: Normal Thyroid Nodules: Tiny spongiform cysts bilaterally. Vascularity: Normal. No focal or diffuse area of hypervascularity identified. US/Thyroid IMPRESSION: NORMAL THYROID ULTRASOUND Reading Location: [id number]
[2024-08-27] MEDS: busPIRone 5 MG Tablet 10 MG PO (23:00)
[2024-08-27] MEDS: Metoprolol Tartrate 25 MG Tablet 12.5 MG PO (23:01)
[2024-08-28] VITALS (8 sets, daily range): BP systolic 94–111; BP diastolic 60–90; PULSE 85–118; RESP 18–24; TEMP 36.6–37.2; O2SAT 92–98; BMI 28.6
[2024-08-28] MEDS: Piperacil/Tazobactam 3.375 GM in 0.9% Normal Saline (50mL MB+) 50 ML IV ×2 (06:36→14:44)
[2024-08-28] MEDS: 0.9% Saline Lock 10 ML Syringe IV ×2 (06:37→14:44)
[2024-08-28] MEDS: Midodrine HCl 5 MG Tablet 10 MG PO ×3 (08:28→17:26)
--- NOTE | 2024-08-28 09:27 | PCM.PN.SRG ---
Subjective Subjective Patient tolerated clears denies any abdominal pain, is having diarrhea Objective Data Objective Data Vital Signs: Vital Signs Temp Pulse Resp BP Pulse Ox O2 Del Method O2 Flow Rate 98.4 F 85 18 94/60 98 Nasal Cannula 4 08/28/24 04:00 08/28/24 04:00 08/28/24 04:00 08/28/24 04:00 08/28/24 04:00 08/28/24 04:00 08/28/24 04:00 Oxygen Flow Rate (L/min) 4 Oxygen Delivery Method Nasal Cannula Weight: 156 lb 8.451 oz Body Mass Index (BMI) 28.6 Intake & Output: Intake and Output for Last 24 Hours 08/26/24 08/27/24 08/28/24 23:59 23:59 23:59 Intake Total 1000 / 1000 2417.3333 / 2537.3333 270 / 270 Output Total 250 / 250 600 / 600 Balance 1000 / 1000 2167.3333 / 2287.3333 -330 / -330 Medical Nutrition Assessment Dietitian: Malnutrition Criteria Met Start: 08/27/24 15:02 Freq: Status: Active Protocol: Document 08/27/24 15:02 SB (Rec: 08/27/24 15:02 SB [id number]) Nutrition Malnutrition Evidence of Yes Malnutrition Exists Evidenced By Suboptimal Energy Intake (Severe),Weight Loss (Severe) Clinical Problem Acute Disease or Injury Related Malnutrition Etiology severe related to inadequate oral intake Signs/Symptoms as evidenced by PO meeting <50% of estimated nutrition needs x 3 weeks and 14% unintentional weight loss x 3 weeks. Status Active Problem Recommendation Dietitian Recommend advanced diet as tolerated to liberal regular Recommendations/ diet d/t signs and symptoms of malnutrition. Changes As diet is advanced will order chocolate fortified pudding TID with meals. Will monitor weight trends. Reviewed and approved by Jcay Martinez RD, LD. Lab / Micro Data 08/27/24 03:57 08/27/24 03:57 Micro: Microbiology 08/27/24 20:10 Stool Clostridioides difficile (PCR) - Final 08/27/24 04:00 Mucosa - Nasopharyngeal SARS-CoV-2, Influenza & RSV (PCR) - Final SARS-CoV-2 (COVID 19) Physical Exam Const oriented x3 and no apparent distress GI soft to palpation and non-tender Inspection: Negative for abdominal distention Assessment & Plan Assessment/Plan (1) Intractable nausea and vomiting: PLAN: The patient is a 64-year-old female with multiple medical problems but most notable for alcoholic cirrhosis and chronic pancreatitis admitted with abdominal pain, nausea and vomiting. Imaging while seen in the emergency room showed questionable appendicitis however clinically she really has no right lower quadrant abdominal pain and I do not feel that this is the case clinically. She would be a very poor surgical candidate due to her liver pathology. Would encourage ambulation. Will continue to follow from a surgical standpoint. PLAN: Plan Plan to tolerate transitional diet tolerates okay for regular diet. Charges/Coding Visit Charges Inpatient E&M: 02655 Subs Hosp L2
[2024-08-28] MEDS: Enoxaparin 40 MG/0.4 ML Syringe SC (10:05)
[2024-08-28] MEDS: Digoxin 250 MCG/ML Ampul IV (10:06)
[2024-08-28] MEDS: busPIRone 5 MG Tablet 10 MG PO ×2 (10:07→22:34)
[2024-08-28] MEDS: Metoprolol Tartrate 25 MG Tablet 12.5 MG PO ×2 (10:07→22:34)
[2024-08-28] MEDS: ARIPiprazole 10 MG Tablet PO (10:07)
[2024-08-28] MEDS: Nystatin Powder 15gm Bottle 1 APPLIC TOPICAL ×2 (10:08→22:33)
--- NOTE | 2024-08-28 16:35 | PN.HOSP_ITS ---
Reason for Visit Reason for Visit: Diagnoses Thyrotoxicosis, unspecified without thyrotoxic crisis or storm (08/27/24) Hypomagnesemia (08/27/24) Hypokalemia (08/27/24) Unspecified atrial fibrillation (08/27/24) Unspecified acute appendicitis (08/27/24) Ileus, unspecified (08/27/24) Periumbilical pain (08/27/24) Unspecified abdominal pain (08/27/24) Nausea with vomiting, unspecified (08/27/24) Abnormal results of thyroid function studies (08/27/24) COVID-19 (08/27/24) Personal history of other diseases of the digestive system (08/27/24) Personal history of other specified conditions (08/27/24) Subjective Subjective Patient was seen and examined today, she remains in atrial fibrillation with a rate in the 90s. Surgery advanced her diet today to a transitional diet, patient has been having bowel movements and flatus. Objective Data Objective Data Vital Signs: Vital Signs Temp Pulse Resp BP Pulse Ox O2 Del Method O2 Flow Rate 97.9 F 97 24 H 109/90 H 95 Room Air 2 08/28/24 10:01 08/28/24 10:07 08/28/24 10:01 08/28/24 10:01 08/28/24 11:16 08/28/24 14:00 08/28/24 11:16 Oxygen Flow Rate (L/min) 2 Oxygen Delivery Method Room Air Weight: 71 kg Body Mass Index (BMI) 28.6 Intake & Output: Intake and Output for Last 24 Hours 08/26/24 08/27/24 08/28/24 23:59 23:59 23:59 Intake Total 1000 / 1000 2417.3333 / 2537.3333 570 / 570 Output Total 250 / 250 600 / 600 Balance 1000 / 1000 2167.3333 / 2287.3333 -30 / -30 Medical Nutrition Assessment Dietitian: Malnutrition Criteria Met Start: 08/27/24 15:02 Freq: Status: Active Protocol: Document 08/27/24 15:02 SB (Rec: 08/27/24 15:02 SB [id number]) Nutrition Malnutrition Evidence of Yes Malnutrition Exists Evidenced By Suboptimal Energy Intake (Severe),Weight Loss (Severe) Clinical Problem Acute Disease or Injury Related Malnutrition Etiology severe related to inadequate oral intake Signs/Symptoms as evidenced by PO meeting <50% of estimated nutrition needs x 3 weeks and 14% unintentional weight loss x 3 weeks. Status Active Problem Recommendation Dietitian Recommend advanced diet as tolerated to liberal regular Recommendations/ diet d/t signs and symptoms of malnutrition. Changes As diet is advanced will order chocolate fortified pudding TID with meals. Will monitor weight trends. Reviewed and approved by Jacy Martinez RD, LD. Lab / Micro Data 08/27/24 03:57 08/27/24 03:57 Micro: Microbiology 08/27/24 20:10 Stool Clostridioides difficile (PCR) - Final 08/27/24 04:00 Mucosa - Nasopharyngeal SARS-CoV-2, Influenza & RSV (PCR) - Final SARS-CoV-2 (COVID 19) Radiography Diagnostic Testing: Radiology Impression Thyroid Ultrasound 08/27/24 20:04 IMPRESSION: NORMAL THYROID ULTRASOUND Reading Location: [facility] Physical Exam Narrative alert, oriented x3 and no apparent distress General Appearance: cooperative, well kempt and well developed Orientation / Consciousness: awake, oriented to person, oriented to place and oriented to time HEENT normocephalic, head/scalp atraumatic and moist oral mucous membranes Eyes PERRL, EOMs intact bilaterally and conjunctivae normal Neck supple, no JVD, thyroid normal and no carotid bruits General: trachea midline Resp normal respiratory effort, no retractions, no use of accessory muscles and clear to auscultation bilaterally Auscultation: Negative for rales, rhonchi or wheezes Cardio no murmurs, no rub and no gallops Cardio Narrative: Heart rate and rhythm irregular GI normal to inspection, nondistended, normoactive bowel sounds, soft to palpation and non-distended GI Narrative: There is slight abdominal tenderness to palpation over the abdomen Extremity no clubbing, cyanosis or edema Skin no rashes or lesions noted General Skin Exam: no breakdown Neuro oriented x3, CN's II-XII intact bilaterally, moves all extremities, no focal motor deficits and no sensory deficits noted Sensorium / Orientation: awake and alert Speech: speech normal Psych affect normal Assessment & Plan Assessment/Plan (1) Intractable nausea and vomiting: (2) Hyperthyroidism determined by thyroid function test: (3) Atrial fibrillation with RVR: PLAN: Plan 1. Ileus-patient is passing flatus and stool according to surgery, no surgical intervention is anticipated at this time, patient's diet was advanced #2 paroxysmal atrial fibrillation with RVR-I have elected to keep the patient on digoxin, her rate appears under better control than yesterday #3 cirrhosis secondary to past alcohol use syndrome-this appears to be stable at this time #4 bipolar disorder-patient will remain on her present psych meds #5 acute severe protein and caloric malnutrition-as evidenced by p.o. meeting less than 50% of estimated nutritional needs x 3 weeks and a 14% unintentional weight loss x 3 weeks-diet was advanced to liberal regular, chocolate fortified pudding 3 times daily was ordered with meals-patient will be monitored by nutritional services Total clinical time spent by myself addressing patient's medical issues, reviewing all of her data, and collaborating with patient's care team: 35 minutes Charges/Coding Visit Charges Inpatient E&M: 48878 Subs Hosp L2
[2024-08-29] VITALS (10 sets, daily range): BP systolic 98–102; BP diastolic 6–62; PULSE 85–104; RESP 15–16; TEMP 36.5–37.2; O2SAT 87–98; BMI 28.8
[2024-08-29 05:42] LABS: ALB/GLOB Ratio 0.4 RATIO (0.9-2.4); AST(SGOT) 50 U/L (15-37); Alanine Aminotransfer ALT/SGPT 19 U/L (13-56); Alkaline Phosphatase 182 U/L (45-117); Anion Gap 7 (5-15); BUN 6 mg/dL (7-18); BUN/Creat Ratio 9.4 RATIO (10-20); Calcium,Total 8.7 mg/dL (8.5-10.1); Chloride 102 mmol/L (98-107); Creatinine, Serum 0.64 mg/dL (0.55-1.02); EST Glomerular Filtration Rate 99 mL/min (>60); Est Glom Filt Rate - Afr Amer 120 mL/min (>60); Estimated Creatinine Clearance 64.97 ml/min; Glucose 91 mg/dL (74-106); Potassium 2.9 mmol/L (3.5-5.1); Sodium Level 136 mmol/L (136-145)
[2024-08-29 06:35] LABS: International Normalized Ratio 1.8; Prothrombin Time (Protime)PT. 21.1 SECONDS (11.7-14.9)
[2024-08-29] MEDS: Midodrine HCl 5 MG Tablet 10 MG PO ×3 (08:03→17:16)
--- NOTE | 2024-08-29 08:47 | PN.SURG_ITS ---
Subjective Subjective Patient reports multiple bowel movements, tolerated p.o. denies abdominal pain Objective Data Objective Data Vital Signs: Vital Signs Temp Pulse Resp BP Pulse Ox O2 Del Method O2 Flow Rate 98.9 F 92 15 102/62 93 Nasal Cannula 2 08/29/24 03:00 08/29/24 03:00 08/29/24 03:00 08/29/24 03:00 08/29/24 07:23 08/29/24 07:23 08/29/24 07:23 Oxygen Flow Rate (L/min) 2 Oxygen Delivery Method Nasal Cannula Weight: 157 lb 13.616 oz Body Mass Index (BMI) 28.8 Intake & Output: Intake and Output for Last 24 Hours 08/27/24 08/28/24 08/29/24 23:59 23:59 23:59 Intake Total 2417.3333 / 2537.3333 1100 / 1100 Output Total 250 / 250 600 / 600 100 / 100 Balance 2167.3333 / 2287.3333 500 / 500 -100 / -100 Medical Nutrition Assessment Dietitian: Malnutrition Criteria Met Start: 08/27/24 15:02 Freq: Status: Active Protocol: Document 08/27/24 15:02 SB (Rec: 08/27/24 15:02 SB [id number]) Nutrition Malnutrition Evidence of Yes Malnutrition Exists Evidenced By Suboptimal Energy Intake (Severe),Weight Loss (Severe) Clinical Problem Acute Disease or Injury Related Malnutrition Etiology severe related to inadequate oral intake Signs/Symptoms as evidenced by PO meeting <50% of estimated nutrition needs x 3 weeks and 14% unintentional weight loss x 3 weeks. Status Active Problem Recommendation Dietitian Recommend advanced diet as tolerated to liberal regular Recommendations/ diet d/t signs and symptoms of malnutrition. Changes As diet is advanced will order chocolate fortified pudding TID with meals. Will monitor weight trends. Reviewed and approved by Jacy Martinez RD, LD. Lab / Micro Data 08/27/24 03:57 08/29/24 04:55 Labs: Laboratory Results - last 24 hr 08/29/24 04:55: PT 21.1 H, INR 1.8, Sodium 136, Potassium 2.9 L, Chloride 102, Carbon Dioxide 27.0, Anion Gap 7, BUN 6 L, Creatinine 0.64, Estim Creat Clear Calc 64.97, Est GFR (MDRD) Af Amer 120, Est GFR (MDRD) Non-Af 99, BUN/Creatinine Ratio 9.4 L, Glucose 91, Calcium 8.7, Total Bilirubin 2.90 H, AST 50 H, ALT 19, Alkaline Phosphatase 182 H, Total Protein 7.0, Albumin 2.0 L, Globulin 5.0 H, A lbumin/Globulin Ratio 0.4 L Micro: Microbiology 08/27/24 20:10 Stool Clostridioides difficile (PCR) - Final 08/27/24 04:00 Mucosa - Nasopharyngeal SARS-CoV-2, Influenza & RSV (PCR) - Final SARS-CoV-2 (COVID 19) Radiography Diagnostic Testing: Radiology Impression Thyroid Ultrasound 08/27/24 20:04 IMPRESSION: NORMAL THYROID ULTRASOUND Reading Location: [facility] Physical Exam Narrative Comfortable up sitting in the chair Const oriented x3 and no apparent distress GI soft to palpation and non-tender Inspection: Negative for abdominal distention Assessment & Plan Assessment/Plan (1) Intractable nausea and vomiting: PLAN: The patient is a 64-year-old female with multiple medical problems but most notable for alcoholic cirrhosis and chronic pancreatitis admitted with abdominal pain, nausea and vomiting. Imaging while seen in the emergency room showed questionable appendicitis however clinically she really has no right lower quadrant abdominal pain and I do not feel that this is the case clinically. She would be a very poor surgical candidate due to her liver pathology. Would encourage ambulation. Will continue to follow from a surgical standpoint. PLAN: Plan Patient tolerating traditional diet and also having normal bowel movements. No plans for surgical intervention. Call with questions. Naya Lipscomb M.D. Pager: [phone] [facility] [address] [place] [address], [facility], [address] [place] [address] Office: [phone] Charges/Coding Multi Select Codes Visit Charges Visit Charges: 54434 Subs Hosp L2
[2024-08-29] MEDS: busPIRone 5 MG Tablet 10 MG PO ×2 (09:40→21:24)
[2024-08-29] MEDS: ARIPiprazole 10 MG Tablet PO (09:40)
[2024-08-29] MEDS: Potassium Chloride Oral Soln 20 MEQ/15 ML UDC 60 MEQ PO (09:41)
[2024-08-29] MEDS: Metoprolol Tartrate 25 MG Tablet PO ×2 (09:41→21:19)
[2024-08-29] MEDS: Digoxin 250 MCG Tablet PO (09:41)
[2024-08-29] MEDS: Enoxaparin 40 MG/0.4 ML Syringe SC (09:42)
[2024-08-29] MEDS: Nystatin Powder 15gm Bottle 1 APPLIC TOPICAL ×2 (09:42→21:19)
--- NOTE | 2024-08-29 18:15 | PN.HOSP_ITS ---
Reason for Visit Reason for Visit: Diagnoses Thyrotoxicosis, unspecified without thyrotoxic crisis or storm (08/27/24) Hypomagnesemia (08/27/24) Hypokalemia (08/27/24) Unspecified atrial fibrillation (08/27/24) Unspecified acute appendicitis (08/27/24) Ileus, unspecified (08/27/24) Periumbilical pain (08/27/24) Unspecified abdominal pain (08/27/24) Nausea with vomiting, unspecified (08/27/24) Abnormal results of thyroid function studies (08/27/24) COVID-19 (08/27/24) Personal history of other diseases of the digestive system (08/27/24) Personal history of other specified conditions (08/27/24) Subjective Subjective Patient was seen and examined today, she is complaining of some abdominal distention but no actual abdominal pain. She states that she has had a paracentesis in the past and does not want to undergo another 1. Patient's heart rate has been above 100 most of the time, I elected today to increase her metoprolol and she has had a good response. Objective Data Objective Data Vital Signs: Vital Signs Temp Pulse Resp BP Pulse Ox O2 Del Method O2 Flow Rate 97.7 F L 104 H 16 101/6 L 94 Nasal Cannula 2 08/29/24 13:07 08/29/24 09:41 08/29/24 09:18 08/29/24 09:18 08/29/24 15:52 08/29/24 09:18 08/29/24 15:52 Oxygen Flow Rate (L/min) 2 Oxygen Delivery Method Nasal Cannula Weight: 71.6 kg Body Mass Index (BMI) 28.8 Intake & Output: Intake and Output for Last 24 Hours 08/27/24 08/28/24 08/29/24 23:59 23:59 23:59 Intake Total 2417.3333 / 2537.3333 1100 / 1100 Output Total 250 / 250 600 / 600 100 / 100 Balance 2167.3333 / 2287.3333 500 / 500 -100 / -100 Medical Nutrition Assessment Dietitian: Malnutrition Criteria Met Start: 08/27/24 15:02 Freq: Status: Active Protocol: Document 08/27/24 15:02 SB (Rec: 08/27/24 15:02 SB [id number]) Nutrition Malnutrition Evidence of Yes Malnutrition Exists Evidenced By Suboptimal Energy Intake (Severe),Weight Loss (Severe) Clinical Problem Acute Disease or Injury Related Malnutrition Etiology severe related to inadequate oral intake Signs/Symptoms as evidenced by PO meeting <50% of estimated nutrition needs x 3 weeks and 14% unintentional weight loss x 3 weeks. Status Active Problem Recommendation Dietitian Recommend advanced diet as tolerated to liberal regular Recommendations/ diet d/t signs and symptoms of malnutrition. Changes As diet is advanced will order chocolate fortified pudding TID with meals. Will monitor weight trends. Reviewed and approved by Jacy Martinez, RD, LD. Lab / Micro Data 08/27/24 03:57 08/29/24 04:55 Labs: Laboratory Results - last 24 hr 08/29/24 04:55: PT 21.1 H, INR 1.8, Sodium 136, Potassium 2.9 L, Chloride 102, Carbon Dioxide 27.0, Anion Gap 7, BUN 6 L, Creatinine 0.64, Estim Creat Clear Calc 64.97, Est GFR (MDRD) Af Amer 120, Est GFR (MDRD) Non-Af 99, BUN/Creatinine Ratio 9.4 L, Glucose 91, Calcium 8.7, Total Bilirubin 2.90 H, AST 50 H, ALT 19, Alkaline Phosphatase 182 H, Total Protein 7.0, Albumin 2.0 L, Globulin 5.0 H, A lbumin/Globulin Ratio 0.4 L Micro: Microbiology 08/27/24 20:10 Stool Clostridioides difficile (PCR) - Final 08/27/24 04:00 Mucosa - Nasopharyngeal SARS-CoV-2, Influenza & RSV (PCR) - Final SARS-CoV-2 (COVID 19) Physical Exam Narrative alert, oriented x3 and no apparent distress General Appearance: cooperative, well kempt and well developed Orientation / Consciousness: awake, oriented to person, oriented to place and oriented to time HEENT normocephalic, head/scalp atraumatic and moist oral mucous membranes Eyes PERRL, EOMs intact bilaterally and conjunctivae normal Neck supple, no JVD, thyroid normal and no carotid bruits General: trachea midline Resp normal respiratory effort, no retractions, no use of accessory muscles and clear to auscultation bilaterally Auscultation: Negative for rales, rhonchi or wheezes Cardio no murmurs, no rub and no gallops Cardio Narrative: Heart rate and rhythm irregular GI normal to inspection, nondistended, normoactive bowel sounds, soft to palpation and non-distended GI Narrative: There is slight abdominal tenderness to palpation over the abdomen Extremity no clubbing, cyanosis or edema Skin no rashes or lesions noted General Skin Exam: no breakdown Neuro oriented x3, CN's II-XII intact bilaterally, moves all extremities, no focal motor deficits and no sensory deficits noted Sensorium / Orientation: awake and alert Speech: speech normal Psych affect normal Assessment & Plan Assessment/Plan (1) Intractable nausea and vomiting: (2) Hyperthyroidism determined by thyroid function test: (3) Atrial fibrillation with RVR: PLAN: Plan 1. Ileus-patient is passing flatus and stool according to surgery, no surgical intervention is anticipated at this time, patient's diet was advanced by surgery #2 paroxysmal atrial fibrillation with RVR-I have elected to keep the patient on digoxin, her rate appears under better control than yesterday, I also increased her metoprolol. #3 cirrhosis secondary to past alcohol use syndrome-this appears to be stable at this time #4 bipolar disorder-patient will remain on her present psych meds #5 acute severe protein and caloric malnutrition-as evidenced by p.o. meeting less than 50% of estimated nutritional needs x 3 weeks and a 14% unintentional weight loss x 3 weeks-diet was advanced to liberal regular, chocolate fortified pudding 3 times daily was ordered with meals-patient will be monitored by nutritional services Total clinical time spent by myself addressing patient's medical issues, reviewing all of her data, and collaborating with patient's care team: 35 minutes Charges/Coding Visit Charges Inpatient E&M: 53232 Subs Hosp L2
[2024-08-29] MEDS: Scopolamine 1mg/72hr Patch 1 PATCH TD (21:22)
[2024-08-30] VITALS (7 sets, daily range): BP systolic 94–108; BP diastolic 57–68; PULSE 80–88; RESP 14–20; TEMP 36.6–36.8; O2SAT 94–97; BMI 28.5
[2024-08-30] MEDS: ARIPiprazole 10 MG Tablet PO (08:42)
[2024-08-30] MEDS: Midodrine HCl 5 MG Tablet 10 MG PO ×2 (08:42→12:58)
[2024-08-30] MEDS: Enoxaparin 40 MG/0.4 ML Syringe SC (08:42)
[2024-08-30] MEDS: Digoxin 250 MCG Tablet PO (08:42)
[2024-08-30] MEDS: busPIRone 5 MG Tablet 10 MG PO (08:42)
[2024-08-30] MEDS: Metoprolol Tartrate 25 MG Tablet PO (08:43)
[2024-08-30] MEDS: Nystatin Powder 15gm Bottle 1 APPLIC TOPICAL (08:48)
--- NOTE | 2024-08-30 09:27 | CASEMGMT ---
Updates sent to [facility] at [place]. Mely Burk DC Planning Asst.
[2024-08-30] MEDS: Bumetanide 0.5 MG Tablet PO (10:17)
[2024-08-30] MEDS: Spironolactone 25 MG Tablet PO (10:17)
[2024-08-30] MEDS: Acetaminophen 325 MG Tablet 650 MG PO (10:17)
--- NOTE | 2024-08-30 11:25 | NURSING ---
Patient requesting something stronger than tylenol like percocet due to c/o back pain. Informed doctor. No new orders at this time.
--- NOTE | 2024-08-30 12:42 | PCM.TXEXTCAR ---
Diet Diet Order/Speech Therapy: 08/28/24 09:26 Diet: Transitional Diet Comments: ok for regular if tolerates Routine Orders/Code Status Routine Lab Work: BMP (Repeat in 5 days to recheck potassium level) Code Status: DNRCC-A (DO NOT INTUBATE) DC O2, CPAP, BIPAP needs Home O2 Discharge instructions: No Therapies Weight Bearing: Full weight bearing Physical Therapy: Eval and Treat Occupational Therapy: Eval and Treat Problem/Diagnosis (1) Intractable nausea and vomiting: Status: Acute Code(s): R11.2 - Nausea with vomiting, unspecified (2) Hyperthyroidism determined by thyroid function test: Status: Acute Code(s): E05.90 - Thyrotoxicosis, unspecified without thyrotoxic crisis or storm; R94.6 - Abnormal results of thyroid function studies (3) Atrial fibrillation with RVR: Status: Acute Code(s): I48.91 - Unspecified atrial fibrillation Plan Patient is a 64-year-old female who presented to [facility] ED on 08/26/2024 with worsening abdominal pain and nausea with vomiting. Hospital course as noted below. Patient discharged back to intermediate care in stable condition on 08/30. 1. Ileus ? General Surgery followed. Initially had concern for appendicitis based on imaging but this was quickly ruled out. Suspected that ileus was primarily due to cirrhosis with ascites and poor mobility at baseline. Diet advanced back to regular diet during hospitalization and patient having bowel movements. No intervention needed. 2. Paroxysmal A-fib with RVR ? Had significant run of A-fib with RVR while inpatient. Patient was started on digoxin and Lopressor was increased to 25 mg twice daily with good rate control. Will continue digoxin and Lopressor at this dose on discharge. Not on anticoagulation due to cirrhosis and increased bleeding risk with this. 3. Decompensated cirrhosis with ascites secondary to past alcohol abuse ? Patient with mildly worsened ascites during hospitalization but she elected not to have paracentesis done, as she has had 1 paracentesis done before and it did not seem to help her much. Held Bumex and spironolactone during hospitalization due to borderline low blood pressures but able to restart on day of discharge and will continue on discharge. Continue midodrine. Continue ursodiol, folate and thiamine. 4. Bipolar disorder ? Stable. Continue home medications. 5. Chronic debility ? Stable during hospitalization. Okay for discharge back to an immediate care at the [place] on 08/30. 6. Acute severe protein and caloric malnutrition ? Nutrition followed. Met criteria as evidenced by p.o. meeting less than 50% of estimated nutritional needs x 3 weeks and a 14% unintentional weight loss x 3 weeks. Diet advanced to regular diet during hospitalization as noted above. Treated with nutrition supplementation while inpatient. 7. Hypokalemia ? Repleted as needed. Total clinical time spent by myself addressing the patient's medical issues, reviewing all the data, and collaborating with patient's care team: 35 minutes. Allergies/Procedures Done in Hospital Allergies No Known Allergies Allergy (Verified 08/27/24 01:46) Procedures: EKG and - (Chest x-ray, CT abdomen pelvis, CTA chest, KUB, thyroid ultrasound) Type of Care/Length of Stay Estimated LOS: Convalescent Care Less Than 30 days Type of Care Needed: Intermediate Rehab Potential: Fair Prognosis: Fair Additional Orders/Day of Discharge H&P will serve as current which was dated: 08/26/24 Day of Discharge: 08/30/24 Dietary and Speech Recommendations Dietitian Recommendations/Changes: Recommend advanced diet as tolerated to liberal regular diet d/t signs and symptoms of malnutrition. Will order chocolate fortified pudding TID with meals. Will monitor weight trends. Discharge Plan Admission Admit Date/Time: 08/27/24 00:53 Primary Reason for Your Visit: Abdominal pain with nausea and vomiting Attending Provider: Russell Gama Primary Care Provider: Maxim Stokes Consulting Providers: Naya Lipscomb; Miguel Silva; Marcell Richard Discharge Orders/Prescriptions Prescriptions: New digoxin 250 mcg (0.25 mg) Tablet 250 mcg PO DAILY 30 Days Qty: 0 0RF metoprolol tartrate 25 mg Tablet 25 mg PO BID 30 Days Qty: 0 0RF Continued (DME) Adjustable Underwear Misc See Rx Instructions .ROUTE .MEDSUPPLY Qty: 200 3RF Rx Instructions: As directed. Large aripiprazole 10 mg tablet 10 mg PO DAILY Qty: 30 5RF buspirone 10 mg tablet 10 mg PO BID Qty: 60 5RF cholecalciferol (vitamin D3) 50 mcg (2,000 unit) capsule 25 mcg PO DAILY Creon 24,000-76,000 -120,000 unit capsule,delayed release(DR/EC) 1 cap PO TID Rx Instructions: administer with meals and/or snacks potassium chloride 20 mEq tablet extended release 20 meq PO BID midodrine 5 mg Tablet 10 mg PO TIDCM Qty: 0 0RF folic acid 1 mg Tablet 1 mg PO BREAKFAST Qty: 0 0RF nystatin [Nyamyc] 100,000 unit/gram Powder 1 applic topical BID Qty: 0 0RF Protocol: *Topical Application Instructions APPLICATION INSTRUCTIONS: apply to groin menthol-zinc oxide [Calmoseptine] 0.44-20.6 % Ointment 1 applic topical BID Qty: 0 0RF Protocol: *Topical Application Instructions APPLICATION INSTRUCTIONS: apply to buttock spironolactone [Aldactone] 25 mg tablet 25 mg PO DAILY acetaminophen 325 mg Tablet 650 mg PO Q4H PRN PRN (Reason: Fever, pain 1-04/22) Qty: 0 0RF simethicone 80 mg Tablet,Chewable 80 mg PO TIDPC Qty: 0 0RF haloperidol 1 mg tablet 0.5 mg PO TID PRN (Reason: nausea and vomiting) (DME) Lift Chair See Rx Instructions .Route .MEDSUPPLY Qty: 1 0RF Rx Instructions: As directed thiamine HCl (vitamin B1) 100 mg tablet 100 mg PO DAILY Qty: 90 3RF ursodiol 250 mg tablet 250 mg PO BID Qty: 60 9RF multivitamin [One Daily Multivitamin] Tablet 1 tab PO DAILY Qty: 90 1RF Changed bumetanide 0.5 mg Tablet 0.5 mg PO BID 30 Days Qty: 0 0RF Discontinued metoprolol tartrate 25 mg Tablet 12.5 mg PO BID Qty: 0 0RF Rx Instructions: hold for SBP<90 or HR <60 Referrals / Follow Up: Maxim Stokes MD [Primary Care Provider] - Disposition Disposition (needs filled in before D/C Order can be placed): NonSkilled NH/Intermed Care
--- NOTE | 2024-08-30 12:53 | DS.PCM_ITS ---
Providers Date of Admission: 08/27/24 Date of Discharge: 08/30/24 Primary Care Physician: Dr. Maxim Stokes MD Consultations 08/27/24 03:57 Consult: General Surgery Routine Consulting Provider: Naya Lipscomb Reason for Consult: CT suggestive of appendicitis and bowel obstruction vs ileus EMERGENT Consult: No MD Notified: Yes Date Notified: 08/27/24 Time Notified: 06:54 Method of Notification: Text Reason For Visit: AFIB WITH RVR, ILEUS VS SBO W/N/V & SUSPECTED Diagnosis Discharge Diagnosis (1) Intractable nausea and vomiting: Status: Acute Code(s): R11.2 - Nausea with vomiting, unspecified (2) Hyperthyroidism determined by thyroid function test: Status: Acute Code(s): E05.90 - Thyrotoxicosis, unspecified without thyrotoxic crisis or storm; R94.6 - Abnormal results of thyroid function studies (3) Atrial fibrillation with RVR: Status: Acute Code(s): I48.91 - Unspecified atrial fibrillation Medications at Discharge Home Medications Lift Chair #1 ea 12/08/20 diaper,brief,adult,disposable (Adjustable Underwear) #200 ea 09/22/23 cholecalciferol (vitamin D3) 50 mcg (2,000 unit) capsule 25 mcg PO DAILY supplement 12/29/23 thiamine HCl (vitamin B1) 100 mg tablet 100 mg PO DAILY #90 tabs 12/30/23 aripiprazole 10 mg tablet 10 mg PO DAILY #30 tabs 03/18/24 buspirone 10 mg tablet 10 mg PO BID #60 tabs 03/18/24 ursodiol 250 mg tablet 250 mg PO BID #60 TABLETS 04/13/24 multivitamin (One Daily Multivitamin tablet) 1 tab PO DAILY #90 tabs 06/02/24 folic acid 1 mg tablet 1 mg PO BREAKFAST #0 tabs 06/15/24 menthol 0.44 %-zinc oxide 20.6 % topical ointment (Calmoseptine) 1 applic topical BID #0 grams 06/15/24 midodrine 5 mg tablet 10 mg (2 x 5 mg) PO TIDCM #0 tabs 06/15/24 nystatin 100,000 unit/gram topical powder (Nyamyc) 1 applic topical BID #0 grams 06/15/24 [id number] 24,000-76,000-120,000 unit capsule,delayed rel (Creon) 1 cap PO TID Pancreatic Enzyme 07/30/24 potassium chloride 20 mEq tablet,extended release 20 meq PO BID SUPPLEMENT 07/30/24 spironolactone 25 mg tablet (Aldactone) 25 mg PO DAILY Diuretic 08/05/24 acetaminophen 325 mg tablet 650 mg (2 x 325 mg) PO Q4H PRN PRN Fever, pain 1- 04/22 #0 tabs 08/11/24 simethicone 80 mg chewable tablet 80 mg PO TIDPC #0 tabs 08/11/24 haloperidol 1 mg tablet 0.5 mg PO TID PRN nausea and vomiting 08/27/24 bumetanide 0.5 mg tablet 0.5 mg PO BID 30 days #0 tabs 08/30/24 digoxin 250 mcg (0.25 mg) tablet 250 mcg PO DAILY 30 days #0 tabs 08/30/24 metoprolol tartrate 25 mg tablet 25 mg PO BID 30 days #0 tabs 08/30/24 Hospital Course Operations None Procedures EKG and - (Chest x-ray, CT abdomen pelvis, CTA chest, KUB, thyroid ultrasound) Summary of Care Provided Minutes Spent on Discharge: 35 Hospital Course: Patient is a 64-year-old female who presented to [facility] ED on 08/26/2024 with worsening abdominal pain and nausea with vomiting. Hospital course as noted below. Patient discharged back to intermediate care in stable condition on 08/30. 1. Ileus ? General Surgery followed. Initially had concern for appendicitis based on imaging but this was quickly ruled out. Suspected that ileus was primarily due to cirrhosis with ascites and poor mobility at baseline. Diet advanced back to regular diet during hospitalization and patient having bowel movements. No intervention needed. 2. Paroxysmal A-fib with RVR ? Had significant run of A-fib with RVR while inpatient. Patient was started on digoxin and Lopressor was increased to 25 mg twice daily with good rate control. Will continue digoxin and Lopressor at this dose on discharge. Not on anticoagulation due to cirrhosis and increased bleeding risk with this. 3. Decompensated cirrhosis with ascites secondary to past alcohol abuse ? Patient with mildly worsened ascites during hospitalization but she elected not to have paracentesis done, as she has had 1 paracentesis done before and it did not seem to help her much. Held Bumex and spironolactone during hospitalization due to borderline low blood pressures but able to restart on day of discharge and will continue on discharge. Continue midodrine. Continue ursodiol, folate and thiamine. 4. Bipolar disorder ? Stable. Continue home medications. 5. Chronic debility ? Stable during hospitalization. Okay for discharge back to an immediate care at the [facility] on 08/30. 6. Acute severe protein and caloric malnutrition ? Nutrition followed. Met criteria as evidenced by p.o. meeting less than 50% of estimated nutritional needs x 3 weeks and a 14% unintentional weight loss x 3 weeks. Diet advanced to regular diet during hospitalization as noted above. Treated with nutrition supplementation while inpatient. 7. Hypokalemia ? Repleted as needed. Total clinical time spent by myself addressing the patient's medical issues, reviewing all the data, and collaborating with patient's care team: 35 minutes. Physical Exam Narrative alert, oriented x3 and no apparent distress General Appearance: cooperative, well kempt and well developed Orientation / Consciousness: awake, oriented to person, oriented to place and oriented to time HEENT normocephalic, head/scalp atraumatic and moist oral mucous membranes Eyes PERRL, EOMs intact bilaterally and conjunctivae normal Neck supple, no JVD, thyroid normal and no carotid bruits General: trachea midline Resp normal respiratory effort, no retractions, no use of accessory muscles and clear to auscultation bilaterally Auscultation: Negative for rales, rhonchi or wheezes Cardio no murmurs, no rub and no gallops Cardio Narrative: Heart rate and rhythm irregular GI normal to inspection, nondistended, normoactive bowel sounds, soft to palpation and non-distended GI Narrative: There is slight abdominal tenderness to palpation over the abdomen Extremity no clubbing, cyanosis or edema Skin no rashes or lesions noted General Skin Exam: no breakdown Neuro oriented x3, CN's II-XII intact bilaterally, moves all extremities, no focal motor deficits and no sensory deficits noted Sensorium / Orientation: awake and alert Speech: speech normal Psych affect normal Medical Records Data Medical Nutrition Assessment Dietitian: Malnutrition Criteria Met Start: 08/27/24 15:02 Freq: Status: Active Protocol: Document 08/27/24 15:02 SB (Rec: 08/27/24 15:02 SB [id number]) Nutrition Malnutrition Evidence of Yes Malnutrition Exists Evidenced By Suboptimal Energy Intake (Severe),Weight Loss (Severe) Clinical Problem Acute Disease or Injury Related Malnutrition Etiology severe related to inadequate oral intake Signs/Symptoms as evidenced by PO meeting <50% of estimated nutrition needs x 3 weeks and 14% unintentional weight loss x 3 weeks. Status Active Problem Recommendation Dietitian Recommend advanced diet as tolerated to liberal regular Recommendations/ diet d/t signs and symptoms of malnutrition. Changes As diet is advanced will order chocolate fortified pudding TID with meals. Will monitor weight trends. Reviewed and approved by Jacy Martinez RD, LD. Weight / BMI Weight Weight: 70.9 kg Body Mass Index (BMI) 28.5 ABG / Lab / Microbiology Data 08/27/24 03:57 08/29/24 04:55 Microbiology: Microbiology 08/27/24 20:10 Stool Clostridioides difficile (PCR) - Final 08/27/24 04:00 Mucosa - Nasopharyngeal SARS-CoV-2, Influenza & RSV (PCR) - Final SARS-CoV-2 (COVID 19) D/C Instructions DC O2, CPAP, BIPAP Needs Home O2 Discharge instructions: No Meaningful Use Info Meaningful Use Meaningful Use Diagnoses (Choose all that apply): None applicable Ischemic Stroke Statin Dosing Therapy Reference: STATIN DOSE THERAPY REFERENCE: * Patients > 75 years receive moderate or high dose statin therapy. * Patients 75 years or YOUNGER should receive HIGH intensity statin dose unless contraindicated. You will be required to document reason for non-treatment if statin daily dose does not meet guidelines. HIGH DOSE STATIN THERAPY DAILY Atorvastatin > than or = to 40 mg Rosuvastatin > than or = to 20 mg Amlodipine + Atorvastatin > than or = to 2.5/40 mg Ezetimibe + Simvastatin 10/80 mg Simvastatin 80mg Discharge Plan Admission Admit Date/Time: 08/27/24 00:53 Primary Reason for Your Visit: Abdominal pain with nausea and vomiting Attending Provider: Russell Gama Primary Care Provider: Maxim Stokes Consulting Providers: Naya Lipscomb; Miguel Silva; Marcell Richard Discharge Orders/Prescriptions Prescriptions: New digoxin 250 mcg (0.25 mg) Tablet 250 mcg PO DAILY 30 Days Qty: 0 0RF metoprolol tartrate 25 mg Tablet 25 mg PO BID 30 Days Qty: 0 0RF Continued (DME) Adjustable Underwear Misc See Rx Instructions .ROUTE .MEDSUPPLY Qty: 200 3RF Rx Instructions: As directed. Large aripiprazole 10 mg tablet 10 mg PO DAILY Qty: 30 5RF buspirone 10 mg tablet 10 mg PO BID Qty: 60 5RF cholecalciferol (vitamin D3) 50 mcg (2,000 unit) capsule 25 mcg PO DAILY Creon 24,000-76,000 -120,000 unit capsule,delayed release(DR/EC) 1 cap PO TID Rx Instructions: administer with meals and/or snacks potassium chloride 20 mEq tablet extended release 20 meq PO BID midodrine 5 mg Tablet 10 mg PO TIDCM Qty: 0 0RF folic acid 1 mg Tablet 1 mg PO BREAKFAST Qty: 0 0RF nystatin [Nyamyc] 100,000 unit/gram Powder 1 applic topical BID Qty: 0 0RF Protocol: *Topical Application Instructions APPLICATION INSTRUCTIONS: apply to groin menthol-zinc oxide [Calmoseptine] 0.44-20.6 % Ointment 1 applic topical BID Qty: 0 0RF Protocol: *Topical Application Instructions APPLICATION INSTRUCTIONS: apply to buttock spironolactone [Aldactone] 25 mg tablet 25 mg PO DAILY acetaminophen 325 mg Tablet 650 mg PO Q4H PRN PRN (Reason: Fever, pain 1-04/22) Qty: 0 0RF simethicone 80 mg Tablet,Chewable 80 mg PO TIDPC Qty: 0 0RF haloperidol 1 mg tablet 0.5 mg PO TID PRN (Reason: nausea and vomiting) (DME) Lift Chair See Rx Instructions .Route .MEDSUPPLY Qty: 1 0RF Rx Instructions: As directed thiamine HCl (vitamin B1) 100 mg tablet 100 mg PO DAILY Qty: 90 3RF ursodiol 250 mg tablet 250 mg PO BID Qty: 60 9RF multivitamin [One Daily Multivitamin] Tablet 1 tab PO DAILY Qty: 90 1RF Changed bumetanide 0.5 mg Tablet 0.5 mg PO BID 30 Days Qty: 0 0RF Discontinued metoprolol tartrate 25 mg Tablet 12.5 mg PO BID Qty: 0 0RF Rx Instructions: hold for SBP<90 or HR <60 Referrals / Follow Up: Maxim Stokes MD [Primary Care Provider] - Disposition Disposition (needs filled in before D/C Order can be placed): NonSkilled NH/Intermed Care Charges/Coding Visit Charges Inpatient E&M: 00538 Disch Hosp >30min
--- NOTE | 2024-08-30 14:33 | PHA.DC.MR.R ---
Pharmacy [facility] Med Reconciliation Pharmacy Service has performed discharge medication reconciliation for this patient upon transfer to [facility]. The patient's discharge medication list was reviewed for discrepancies and discrepancies were resolved. Medications at Discharge Home Medications Lift Chair #1 ea 12/08/20 diaper,brief,adult,disposable (Adjustable Underwear) #200 ea 09/22/23 cholecalciferol (vitamin D3) 50 mcg (2,000 unit) capsule 25 mcg PO DAILY supplement 12/29/23 thiamine HCl (vitamin B1) 100 mg tablet 100 mg PO DAILY #90 tabs 12/30/23 aripiprazole 10 mg tablet 10 mg PO DAILY #30 tabs 03/18/24 buspirone 10 mg tablet 10 mg PO BID #60 tabs 03/18/24 ursodiol 250 mg tablet 250 mg PO BID #60 TABLETS 04/13/24 multivitamin (One Daily Multivitamin tablet) 1 tab PO DAILY #90 tabs 06/02/24 folic acid 1 mg tablet 1 mg PO BREAKFAST #0 tabs 06/15/24 menthol 0.44 %-zinc oxide 20.6 % topical ointment (Calmoseptine) 1 applic topical BID #0 grams 06/15/24 midodrine 5 mg tablet 10 mg (2 x 5 mg) PO TIDCM #0 tabs 06/15/24 nystatin 100,000 unit/gram topical powder (Nyamyc) 1 applic topical BID #0 grams 06/15/24 [id number] 24,000-76,000-120,000 unit capsule,delayed rel (Creon) 1 cap PO TID Pancreatic Enzyme 07/30/24 potassium chloride 20 mEq tablet,extended release 20 meq PO BID SUPPLEMENT 07/30/24 spironolactone 25 mg tablet (Aldactone) 25 mg PO DAILY Diuretic 08/05/24 acetaminophen 325 mg tablet 650 mg (2 x 325 mg) PO Q4H PRN PRN Fever, pain -04/22 #0 tabs 08/11/24 simethicone 80 mg chewable tablet 80 mg PO TIDPC #0 tabs 08/11/24 haloperidol 1 mg tablet 0.5 mg PO TID PRN nausea and vomiting 08/27/24 bumetanide 0.5 mg tablet 0.5 mg PO BID 30 days #0 tabs 08/30/24 digoxin 250 mcg (0.25 mg) tablet 250 mcg PO DAILY 30 days #0 tabs 08/30/24 metoprolol tartrate 25 mg tablet 25 mg PO BID 30 days #0 tabs 08/30/24
--- NOTE | 2024-08-30 14:39 | NURSING ---
Report called to [facility] about patient coming back. Informed of 1600 pickup time. Patient notified.
--- NOTE | 2024-08-30 14:41 | CASEMGMT ---
Discharge orders, signed med list, and transport time sent to [facility] at [place]. Physicians will transport pt by wheelchair at 4p. Nursing, SW, and pt updated. Pt states that she will updated friends. Mely Burk DC Planning Asst.
--- NOTE | 2024-08-30 15:45 | CHAPLAIN ---
Type of Pastoral Visit _x__ Initial Visit ___ Follow-up Visit ___ On-call Visit ___ General Patient Visit ___ Spiritual Assessment ___ Family Conference ___ Bereavement ___ Rapid Response ___ Code Blue ___ Other (describe below) Pastoral Care Referral From _x__ Patient ___ Family ___ Nurse ___ Physician ___ Band Manager ___ Director Social ___ Other (describe below) Sacrament/Intervention _x__ Active listening ___ Anointing ___ Tenriism ___ Bereavement ___ Communion ___ Kayla exploration ___ ___ Life review _x__ Prayer ___ Reconciliation ___ Sacrament of Sick ___ Supportive presence ___ Wedding ___ Other (describe below) Pastoral Comments phone call made into isolation room; pt is able to answer and talk; pt indicates that she is returning to [facility] for a day before she returns to her home; pt is reportedly happy to be going home this week but admits that she is also nervous about how it will go for her; pt has a couple friends that can check on her for safety; pt expresses thanks for the call and support; pt welcomes a prayer for her anxieties and discharge
== END 2024-08-30 16:06 | disposition intermediate care facility (04) | DRG 388 ==
LOC: ED 23:24 → PCU 08-27 01:07
PROVIDERS: Internal Medicine; Admitting Provider Internal Medicine; Emergency Provider Emergency Medicine; PCP Family Medicine; Visit Provider Hospitalist
DX: K56.7 Ileus, unspecified (principal); U07.1 COVID-19; E43 Unspecified severe protein-calorie malnutrition; E72.20 Disorder of urea cycle metabolism, unspecified; F31.81 Bipolar II disorder; K86.1 Other chronic pancreatitis; K70.31 Alcoholic cirrhosis of liver with ascites; Z66 Do not resuscitate; I48.0 Paroxysmal atrial fibrillation; I10 Essential (primary) hypertension; F10.11 Alcohol abuse, in remission; E05.90 Thyrotoxicosis, unspecified without thyrotoxic crisis or storm; E83.42 Hypomagnesemia; E87.6 Hypokalemia; G89.29 Other chronic pain; R53.81 Other malaise; E66.3 Overweight; Z68.28 Body mass index [BMI] 28.0-28.9, adult; Z79.899 Other long term (current) drug therapy; Z87.891 Personal history of nicotine dependence
CPT/HCPCS: 36415; 71045; 71275; 74018; 74177; 76536; 80048; 80053; 80076; 80307; 82077; 82140; 82607; 82746; 83690; 83735; 84100; 84439; 84443; 84481; 84484; 85025; 85610; 85730; 87493; 87631; 93005; 97110; 97116; 97162; 97166; 97530; 97535; 97802; 97803; 99285; Q9967; A4216; J2405

== ENCOUNTER → 2024-09-15 | Outpatient (CLI) | payer MEDICARE, MEDICAID, SELFPAY ==
[2024-09-15 12:39] LABS: Absolute Lymphocyte Count 1.71 X10^3/uL (0.83-4.51); Absolute Neutrophil Count 4.4 X10^3/uL (2.0-7.7); Basophil# 0.01 X10^3/uL; Basophil% 0.1 % (0-1); Eosinophil# 0.16 X10^3/uL; Eosinophils% 2.2 % (0-5); Hematocrit 34.8 % (37-47); Hemoglobin 11.3 g/dL (12.0-15.0); Lymphocyte # 1.71 X10^3/ul (0.83-4.51); Lymphocyte % 23.9 % (19-41); Mean Corp Hgb Conc 32.5 g/dL (32-36); Mean Corpuscular Hgb 30.9 pg (27.0-32.0); Mean Corpuscular Volume 95.1 fL (81-99); Mean Platelet Vol. 11.5 fl (6.2-12.0); Monocyte# 0.89 X10^3/uL; Monocyte% 12.4 % (0-10); NRBC Flagged by Analyzer 0 % (0-5); Neutrophil # 4.35 X10^3/uL (2.7-7.7); POSITIVE MORPHOLOGY YES; Platelet Count 155 K/mm3 (150-450); RBC Distribution Width CV 19.5 % (11.6-14.6); RBC Distribution Width SD 67.5 fl (35.1-43.9); Red Blood Count 3.66 M/mm3 (4.2-5.4); White Blood Count 7.2 K/mm3 (4.4-11.0)
[2024-09-15 12:41] LABS: Differential Indicated SCAN CRITERIA MET
[2024-09-15 12:49] LABS: ALB/GLOB Ratio 0.7 RATIO (0.9-2.4); AST(SGOT) 47 U/L (<=31); Alanine Aminotransfer ALT/SGPT 28 U/L (<=34); Alkaline Phosphatase 182 U/L (35-104); Anion Gap 11 (5-15); BUN 11 mg/dL (4-19); BUN/Creat Ratio 15.5 RATIO (10-20); Calcium,Total 8.8 mg/dL (7.6-11.0); Carbon Dioxide 22.4 mmol/L (21.0-32.0); Chloride 108 mmol/L (98-108); Creatinine, Serum 0.71 mg/dL (0.70-1.20); EST Glomerular Filtration Rate 94 (>60); Globulin 4.6 g/dL (2.2-4.2); Glucose 113 mg/dL (70-99); Potassium 3.8 mmol/L (3.3-5.1); Protein, Total 7.6 g/dL (5.9-8.4); Sodium Level 141 mmol/L (133-145); Total Bilirubin 2.48 mg/dL (0.00-1.30)
[2024-09-15 13:05] LABS: Anisocytosis 1+
== END | disposition home or self-care (01) ==
LOC: BIMLAB 10:07
PROVIDERS: Physician Assistant; PCP Internal Medicine; Referring Provider Internal Medicine; Visit Provider Internal Medicine
DX: K85.20 Alcohol induced acute pancreatitis without necrosis or infection (principal)
CPT/HCPCS: 36415; 80053; 85025

== ENCOUNTER 2024-09-21 21:07 | Emergency (ER) | payer MEDICARE, MEDICAID, SELFPAY ==
[2024-09-21 21:07] VITALS: BP 111/75; PULSE 72; RESP 20; TEMP 36.8; O2SAT 97; BMI 29.9
[2024-09-21] MEDS: Oxymetazoline 0.05% 1 SPRAY SPRAY.BTL NASAL (21:24)
--- NOTE | 2024-09-21 21:55 | EX.ED.DYSGE1 ---
HPI History of Present Illness Chief Complaint: Nosebleed Informant: patient Narrative Narrative: Right sided nasal bleed spontaneously shortly prior to arrival. Typically wears oxygen at night had recent upper respiratory illness 2 weeks ago cough symptoms improving. Today felt little more short of breath therefore was wearing her oxygen throughout the day. Bleeding started. She states she was admitted a couple months ago for her cirrhosis she had a bleed then she had a nasal packing for 1 day in the hospital. She thinks is on the same side. She does not take any blood thinners. No current dyspnea or cough. Prior similar symptoms: Yes PFSH [facility] Medical History Bipolar II disorder Alcohol use disorder, moderate, dependence Hypertension Alcoholic hepatitis Cirrhosis History of ascites History of cirrhosis Ileus Polycythemia Pressure sore on buttocks Alcohol abuse Generalized weakness Cystocele History of vertebral compression fracture Debility Venous thromboembolism (VTE) prophylaxis provided within 24 hours of arrival Vertebral compression fracture Intractable low back pain Abnormal CT of the chest Anxiety Chronic back pain Osteoporosis Arthritis Compression fracture of thoracic spine, non-traumatic Pancreatitis Urinary urgency Marijuana use Shortness of breath on exertion Leg cramps Seborrheic dermatitis Neck pain Bowel incontinence Urinary incontinence Alcoholic pancreatitis Scalp psoriasis Debility Wears contact lenses Anxiety Walker as ambulation aid Injury of head and neck Difficulty swallowing Non-smoker Pain at injection site Compression fracture Depression Alcohol use Osteoporosis Scoliosis Home Medications ?Medication ?Instructions ?Recorded ?Last Taken ?Type Lift Chair #1 ea 12/08/20 Unknown Rx diaper,brief,adult,disposable #200 ea 09/22/23 Unknown Rx (Adjustable Underwear) cholecalciferol (vitamin D3) 50 25 mcg PO DAILY supplement 12/29/23 08/26/24 History mcg (2,000 unit) capsule thiamine HCl (vitamin B1) 100 mg 100 mg PO DAILY #90 tabs 12/30/23 08/26/24 Rx tablet multivitamin (One Daily 1 tab PO DAILY #90 tabs 06/02/24 08/26/24 Rx Multivitamin tablet) [id number] 1 cap PO TID Pancreatic Enzyme 07/30/24 08/26/24 History 24,000-76,000-120,000 unit capsule,delayed rel (Creon) potassium chloride 20 mEq 20 meq PO BID SUPPLEMENT 07/30/24 08/26/24 History tablet,extended release spironolactone 25 mg tablet 25 mg PO DAILY Diuretic 08/05/24 08/26/24 History (Aldactone) Held on 09/15/24. Instructions: Patient refusing to take acetaminophen 325 mg tablet 650 mg (2 x 325 mg) PO Q4H PRN PRN 08/11/24 Unknown Rx Fever, pain 1-04/22 #0 tabs bumetanide 0.5 mg tablet 0.5 mg PO BID 30 days #0 tabs 08/30/24 08/26/24 Rx Held on 09/15/24. Instructions: Patient is refusing to take metoprolol tartrate 25 mg tablet 25 mg PO BID 30 days #0 tabs 08/30/24 Unknown Rx aripiprazole 10 mg tablet 10 mg PO DAILY #30 tabs 09/14/24 Unknown Rx buspirone 10 mg tablet 10 mg PO TID #90 tabs 09/14/24 Unknown Rx folic acid 1 mg tablet 1 mg PO BREAKFAST #90 tabs 09/15/24 Unknown Rx midodrine 5 mg tablet 5 mg PO TID #90 tabs 09/15/24 Unknown Rx digoxin 250 mcg (0.25 mg) tablet 250 mcg PO DAILY 30 days #30 tabs 09/20/24 Unknown Rx albuterol sulfate 90 mcg/actuation 2 puff inhalation Q4H PRN wheezing 09/21/24 Unknown History aerosol inhaler bisacodyl 5 mg tablet,delayed 20 mg (4 x 5 mg) PO ONCE #4 tabs 09/21/24 Unknown Rx release haloperidol 0.5 mg tablet mg 09/21/24 Unknown History midodrine 10 mg tablet mg 3XD 09/21/24 Unknown History polyethylene glycol 3350 17 238 g PO ONCE #238 grams 09/21/24 Unknown Rx gram/dose oral powder potassium chloride 20 mEq meq PO 09/21/24 Unknown History tablet,extended release(part/cryst) Allergy/AdvReac Type Severity Reaction Status Date / Time No Known Allergies Allergy Verified 09/21/24 21:11 Family History Mother Heart disease Osteoporosis Father Lung fibrosis Surgical History History of hip replacement S/P tubal ligation History of esophagogastroduodenoscopy (EGD) Hx of kyphoplasty History of back surgery History of wisdom tooth extraction Hx of total hip arthroplasty S/P kyphoplasty History of tubal ligation Social History household members: none housing: snf current occupational status: disabled Smoking Status: Former smoker Tobacco: How many years used: 2 Electronic Cigarette Use: not used how long ago did patient quit smoking: Smoked minimally age [age]. second hand exposure: No alcohol intake: former details: Sober since 06/04/24. substance use type: does not use what type of physical activity do you participate in: none seatbelt use: always do you feel safe at home: Yes additional social history: single ROS ROS ED Constitutional Constitutional ED: Denies chills, fever(s) or sweats ENT ENT ED: Reports other Details: Right side nasal bleed ; Denies sore throat Cardiovascular Cardiovascular: Denies chest pain, leg edema, palpitations or racing heartbeat Respiratory/Chest Respiratory/Chest: Denies cough, dyspnea or dyspnea on exertion Gastrointestinal Gastrointestinal: Denies abdominal pain, diarrhea, nausea or vomiting Genitourinary Genitourinary ED: Denies dysuria, hematuria or urinary frequency Musculoskeletal Musculoskeletal: Denies back pain, extremity pain or neck pain Integumentary Denies rash or wounds Neurologic Neurologic: Denies headache(s), paresthesias or weakness EXAM Physical Exam Const Vital Signs: 09/21/24 21:07 09/21/24 23:07 09/21/24 23:56 Temperature 98.3 F 98.0 F Temperature Source Oral Pulse Rate 72 96 93 Respiratory Rate 20 H 16 18 Blood Pressure 111/75 107/69 111/67 Blood Pressure Mean 87 81 81 Pulse Ox 97 96 95 Oxygen Delivery Method Room Air Room Air Positive well nourished and well developed General Appearance ED: well developed and NAD HEENT Reports moist mucous membranes HEENT Narrative: Nasal clips were placed however patient was spitting up blood. normocephalic and atraumatic Eyes General Eye ED: Yes normal appearance of both eyes Neck full ROM Chest Wall Chest: Negative for tenderness Resp normal respiratory effort and normal air movement Effort and Inspection: symmetric chest movement; Negative for respiratory distress Cardio regular rate, regular rhythm and no murmurs Peripheral Pulses: pulses 2+ throughout GI normal to inspection, nondistended, normoactive bowel sounds and non-tender Palpation: Negative for guarding or rebound tenderness present Extremity normal to inspection General Extremety ED: Negative for edema or tenderness General Extremity: Negative for edema Neuro oriented x3 and no sensory deficits noted Sensorium / Orientation: awake and alert Skin no rashes or lesions noted and no wounds MDM MDM MDM Narrative Medical decision making narrative: Interventions / MDM: Differential diagnosis: Right side epistaxis, history of alcoholic cirrhosis, thrombocytopenia Diagnosis considered but do not suspect: N/A My EKG interpretation: N/A Imaging independently reviewed and interpreted by myself: N/A External documents reviewed: Hospitalization of July noted overnight epistaxes treated with Anselmo mix. Hospitalization last month had A-fib with RVR controlled and converted. Not an anticoagulation candidate due to her cirrhosis. Test considered but not ordered:N/A ED course: Nasal clips remove clots removed on the right side, could not clearly visualize the bleed however noted slight brisk bleed. Afrin on cotton ball was placed, there is placed in her septum. With her cirrhosis history will check labs specially evaluating her platelets. 5: Patient still spitting out blood from the posterior pharynx on reevaluation. Cotton was removed there was a clot behind this. Clots were again expelled from the patient, I placed a 7.5 cm rapid Rhino to right nare. Will continue to monitor. 2310: No active bleeding on reevaluation. Labs hemoglobin 9.1. Hemoglobin 11.3 1likely from her blood loss. Week ago. She denies rectal bleeding. Platelets 127. White count 9.4. Will ambulate the patient with her walker to make sure no rebleeds. 2340: Ambulated with no rebleeds. Discharge follow-up with ENT in 3 days. Discussed if unable to get in, return to ED for reevaluation and packing removal. Re-evaluation: stable Disposition discussed with patient/family/significant other: Patient Case discussed with consulting clinician: N/A This note was generated with dot[employer] dictation software. It may contain incorrect words, spelling, and punctuation that were not noted in checking the note before signing. Lab Data Attestation: I reviewed the patient's lab results. Labs: Laboratory Results - last 24 hr 09/21/24 21:55 WBC 9.4 RBC 2.90 L Hgb 9.1 L Hct 27.6 L MCV 95.2 MCH 31.4 MCHC 33.0 RDW Std Deviation 68.4 H RDW Coeff of Laxmi 19.9 H Plt Count 127 L MPV 11.7 Immature Gran % (Auto) 0.500 Neut % (Auto) 66.7 Lymph % (Auto) 16.7 L Norton % (Auto) 12.4 H Eos % (Auto) 3.3 Baso % (Auto) 0.4 Absolute Neuts (auto) 6.3 Absolute Lymphs (auto) 1.57 Nucleated RBC % 0 Platelet Estimate SLT DEC RBC Morphology N CHROM Anisocytosis 1+ Macrocytosis 1+ Ovalocytes RARE PT 20.6 H INR 1.7 APTT 33.6 Sodium 137 Potassium 5.0 Chloride 107 Carbon Dioxide 23.1 Anion Gap 7 BUN 12 Creatinine 0.82 Estim Creat Clear Calc 64.55 Est GFR (MDRD) Non-Af 79 BUN/Creatinine Ratio 14.6 Glucose 102 H Calcium 8.4 Discharge Plan Triage Chief Complaint: Nosebleed ED Provider: Addy Wu Dx/Rx/DC Orders Clinical Impression: Right-sided epistaxis, Anemia, Cirrhosis of liver, Thrombocytopenia Instructions: ED Epistaxis (Adult) Prescriptions: No Action (DME) Adjustable Underwear Misc See Rx Instructions .ROUTE .MEDSUPPLY Qty: 200 3RF Rx Instructions: As directed. Large cholecalciferol (vitamin D3) 50 mcg (2,000 unit) capsule 25 mcg PO DAILY buspirone 10 mg tablet 10 mg PO TID Qty: 90 5RF aripiprazole 10 mg tablet 10 mg PO DAILY Qty: 30 5RF Creon 24,000-76,000 -120,000 unit capsule,delayed release(DR/EC) 1 cap PO TID Rx Instructions: administer with meals and/or snacks potassium chloride 20 mEq tablet extended release 20 meq PO BID folic acid 1 mg tablet 1 mg PO BREAKFAST Qty: 90 1RF midodrine 5 mg tablet 5 mg PO TID Qty: 90 0RF spironolactone [Aldactone] 25 mg tablet 25 mg PO DAILY acetaminophen 325 mg Tablet 650 mg PO Q4H PRN PRN (Reason: Fever, pain 1-10/10) Qty: 0 0RF albuterol sulfate 90 mcg/actuation HFA aerosol inhaler 2 puff INHALATION Q4H PRN (Reason: wheezing) haloperidol 0.5 mg tablet Patient Comments: [NO ORIGINAL SIG] potassium chloride 20 mEq tablet,ER particles/crystals PO midodrine 10 mg tablet 3XD metoprolol tartrate 25 mg Tablet 25 mg PO BID 30 Days Qty: 0 0RF bumetanide 0.5 mg Tablet 0.5 mg PO BID 30 Days Qty: 0 0RF (DME) Lift Chair See Rx Instructions .Route .MEDSUPPLY Qty: 1 0RF Rx Instructions: As directed thiamine HCl (vitamin B1) 100 mg tablet 100 mg PO DAILY Qty: 90 3RF multivitamin [One Daily Multivitamin] Tablet 1 tab PO DAILY Qty: 90 1RF digoxin 250 mcg (0.25 mg) tablet 250 mcg PO DAILY 30 Days Qty: 30 0RF bisacodyl 5 mg tablet,delayed release (DR/EC) 20 mg PO ONCE Qty: 4 0RF Rx Instructions: colonoscopy prep polyethylene glycol 3350 17 gram/dose powder 238 g PO ONCE Qty: 238 0RF Rx Instructions: Mix into 64oz of clear liquid for colonoscopy prep Primary Care Provider: Edward Mc Referrals: Edward Mc MD [Primary Care Provider] - Shilo Fritz MD [Med Staff - Active Staff] - 3-5 Days Activity Restrictions/Additional Instructions: 7.5 cm rapid Rhino right nare was placed with control of the bleeding. Hemoglobin 9.1. Platelets 127. Call for appointment to be made with Dr. Briones by Friday. If unable to get in, return to ED for reevaluation for packing removal. Print Language: Belarusian Disposition Disposition: Home, Self Care Discharge Date/Time: 09/21/24 23:57
[2024-09-21 22:13] LABS: Absolute Lymphocyte Count 1.57 X10^3/uL (0.83-4.51); Absolute Neutrophil Count 6.3 X10^3/uL (2.0-7.7); Basophil# 0.04 X10^3/uL; Basophil% 0.4 % (0-1); Eosinophil# 0.31 X10^3/uL; Eosinophils% 3.3 % (0-5); Hematocrit 27.6 % (37-47); Hemoglobin 9.1 g/dL (12.0-15.0); Lymphocyte # 1.57 X10^3/ul (0.83-4.51); Lymphocyte % 16.7 % (19-41); Mean Corpuscular Hgb 31.4 pg (27.0-32.0); Mean Corpuscular Volume 95.2 fL (81-99); Mean Platelet Vol. 11.7 fl (6.2-12.0); Monocyte# 1.16 X10^3/uL; Monocyte% 12.4 % (0-10); NRBC Flagged by Analyzer 0 % (0-5); Neutrophil # 6.25 X10^3/uL (2.7-7.7); Neutrophil % 66.7 % (47-70); POSITIVE MORPHOLOGY YES; Platelet Count 127 K/mm3 (150-450); RBC Distribution Width CV 19.9 % (11.6-14.6); RBC Distribution Width SD 68.4 fl (35.1-43.9); White Blood Count 9.4 K/mm3 (4.4-11.0)
[2024-09-21 22:21] LABS: Differential Indicated SCAN CRITERIA MET
[2024-09-21 22:28] LABS: International Normalized Ratio 1.7; Prothrombin Time (Protime)PT. 20.6 SECONDS (11.7-14.9)
[2024-09-21 22:29] LABS: Partial Thromboplast Time 33.6 Seconds (24.1-36.2)
[2024-09-21 23:00] LABS: Anion Gap 7 (5-15); BUN 12 mg/dL (4-19); BUN/Creat Ratio 14.6 RATIO (10-20); Calcium,Total 8.4 mg/dL (7.6-11.0); Carbon Dioxide 23.1 mmol/L (21.0-32.0); Chloride 107 mmol/L (98-108); Creatinine, Serum 0.82 mg/dL (0.70-1.20); EST Glomerular Filtration Rate 79 (>60); Estimated Creatinine Clearance 64.55 ml/min (50-250); Glucose 102 mg/dL (70-99); Sodium Level 137 mmol/L (133-145)
[2024-09-21 23:01] LABS: Anisocytosis 1+; Platelet Estimate SLT DEC (ADEQ); Red Cell Morphology N CHROM NORMAL (NORM C&C)
[2024-09-21 23:02] LABS: Macrocytosis 1+; Ovalocyte RARE
[2024-09-21 23:07] VITALS: BP 107/69; PULSE 96; RESP 16; O2SAT 96
[2024-09-21 23:56] VITALS: BP 111/67; PULSE 93; RESP 18; TEMP 36.7; O2SAT 95
== END 2024-09-21 23:57 | disposition home or self-care (01) ==
LOC: ED 21:39
PROVIDERS: Emergency Provider Emergency Medicine; PCP Internal Medicine; Visit Provider Emergency Medicine
DX: R04.0 Epistaxis (principal); K74.60 Unspecified cirrhosis of liver; D64.9 Anemia, unspecified; D69.6 Thrombocytopenia, unspecified; I10 Essential (primary) hypertension; M54.9 Dorsalgia, unspecified; G89.29 Other chronic pain; Z79.899 Other long term (current) drug therapy; Z87.891 Personal history of nicotine dependence
CPT/HCPCS: 30905; 80048; 85025; 85610; 85730; 99285; A4216

== ENCOUNTER → 2024-09-21 | Outpatient (CLI) | payer MEDICARE, MEDICAID, SELFPAY ==
--- NOTE | 2024-09-21 | EMB_PTH ---
PATIENT: PRASHANT MAZARIEGOS LOC: [facility] U#:[id number] AGE/SX: 64/F ROOM: RE09/21/[address]: MILA Hamilton : 1960 BED: DIS: 09/21/2024 SPEC #: [id number] RECD: 09/21/24 12:28 STATUS: GIOVANNA REMalcolm #: [id number] FAISAL: 09/21/24 00:[address]: Smita Benjamin NP DEPT: SURGICAL PATHOLOGY RECD BY: Freddy Pardo ENTERED: 09/21/24 12:28 SP TYPE: ENDOM BX/C JOCELYNE DR: Dr. Edward Mc MD Tissues: Endometrium, NOS Procedures: Surgery Specimen Level IV HEADER OPERATION: Endometrial biopsy PRE-OP DIAGNOSIS: Post menopausal bleeding TISSUE SUBMITTED: Endometrial lining MICROSCOPIC DIAGNOSIS ENDOMETRIUM, BIOPSY: * Superficial strips of benign endometrial epithelium. MICROSCOPIC DESCRIPTION Slides are reviewed. GROSS DESCRIPTION Received in fixative is one container labeled with the patient's name and designated endometrial lining. The specimen consists of scant number tiny pieces of possible tissue. Specimen is totally submitted for cell block preparation. 09/21/24 CPT: 97620
== END | disposition home or self-care (01) ==
PROVIDERS: PCP Internal Medicine; Referring Provider Nurse Practitioner Women's Health; Visit Provider Nurse Practitioner Women's Health
DX: N95.0 Postmenopausal bleeding (principal)
CPT/HCPCS: 88305

== ENCOUNTER 2024-09-22 22:05 | Inpatient (IN) | payer MEDICARE, MEDICAID, SELFPAY ==
[2024-09-22 22:06] VITALS: BP 97/56; PULSE 89; RESP 18; TEMP 36.4; O2SAT 98
--- NOTE | 2024-09-22 22:12 | EKG12_ITS ---
Test Reason : CP Blood Pressure : */* mmHG Vent. Rate : 89 BPM Atrial Rate : 89 BPM P-R Int : 104 ms QRS Dur : 84 ms QT Int : 316 ms P-R-T Axes : -1 49 -85 degrees QTcB Int : 384 ms Sinus rhythm with short NH ST & T wave abnormality, consider inferior ischemia ST & T wave abnormality, consider anterolateral ischemia Abnormal ECG Confirmed by MARI THOMAS, JOSE ([id number]), features editor EDITH QUINTERO ([id number]) on 09/27/2024 10:52:58 AM Referred By: Confirmed By: JOSE GUERRA MD
[2024-09-22 22:31] LABS: Absolute Lymphocyte Count 1.98 X10^3/uL (0.83-4.51); Absolute Neutrophil Count 6.8 X10^3/uL (2.0-7.7); Basophil# 0.04 X10^3/uL; Basophil% 0.4 % (0-1); Eosinophils% 4.9 % (0-5); Hematocrit 27.2 % (37-47); Hemoglobin 8.9 g/dL (12.0-15.0); Lymphocyte # 1.98 X10^3/ul (0.83-4.51); Lymphocyte % 19.3 % (19-41); Mean Corp Hgb Conc 32.7 g/dL (32-36); Mean Corpuscular Hgb 31.6 pg (27.0-32.0); Mean Corpuscular Volume 96.5 fL (81-99); Mean Platelet Vol. 11.6 fl (6.2-12.0); Monocyte# 0.94 X10^3/uL; Monocyte% 9.1 % (0-10); NRBC Flagged by Analyzer 0 % (0-5); Neutrophil % 66.1 % (47-70); POSITIVE MORPHOLOGY YES; Platelet Count 140 K/mm3 (150-450); RBC Distribution Width CV 20.1 % (11.6-14.6); RBC Distribution Width SD 70.6 fl (35.1-43.9); Red Blood Count 2.82 M/mm3 (4.2-5.4); White Blood Count 10.3 K/mm3 (4.4-11.0)
[2024-09-22 22:39] VITALS: O2SAT 100; BMI 49.1
[2024-09-22 22:48] LABS: Differential Indicated SCAN CRITERIA MET
[2024-09-22 22:49] LABS: Troponin T High Sensitivity 33 ng/L (<=14)
--- NOTE | 2024-09-22 22:55 | ED.VIS.CHEST ---
HPI History of Present Illness Chief Complaint: Chest Pain Informant: patient Narrative Narrative: Patient is 64-year-old female with history of pancreatitis, alcohol abuse, cirrhosis of the liver, thrombocytopenia, anemia and atrial fibrillation (not on anticoagulation) presenting for low blood pressure at home and chest pain. Patient states she felt lightheaded. She cannot completely tell me why she checked her blood pressure but she did and it was 60/40. She states she felt very nervous about her blood pressure being this low and then developed chest pain. She scribes as a pressure and burning. She states it is midline in her sternal area. She notes that she has been having indigestion for the past few days. She states that she thinks that the chest pain is because she was thinking about her low blood pressure. She states she is been compliant with her midodrine. She does tell me that she has been having intermittent bright red blood in her stool as well as vaginal bleeding lately. She states she is post have a biopsy of her cervix on Friday for this vaginal bleeding. She denies any melena. She notes that for the past few days she has also been feeling more short of breath and is had a cough. She reports nasal congestion. No fevers reported. She does report of abdominal distention but states that she gets regular paracentesis and feels that she is about due for 1. Chart review shows that patient was seen in the ER yesterday for epistaxis however patient did not tell me about this or report any further epistaxis. [facility] Medical History Bipolar II disorder Alcohol use disorder, moderate, dependence Hypertension Alcoholic hepatitis Cirrhosis History of ascites History of cirrhosis Ileus Polycythemia Pressure sore on buttocks Alcohol abuse Generalized weakness Cystocele History of vertebral compression fracture Debility Venous thromboembolism (VTE) prophylaxis provided within 24 hours of arrival Vertebral compression fracture Intractable low back pain Abnormal CT of the chest Anxiety Chronic back pain Osteoporosis Arthritis Compression fracture of thoracic spine, non-traumatic Pancreatitis Urinary urgency Marijuana use Shortness of breath on exertion Leg cramps Seborrheic dermatitis Neck pain Bowel incontinence Urinary incontinence Alcoholic pancreatitis Scalp psoriasis Debility Wears contact lenses Anxiety Walker as ambulation aid Injury of head and neck Difficulty swallowing Non-smoker Pain at injection site Compression fracture Depression Alcohol use Osteoporosis Scoliosis Home Medications ?Medication ?Instructions ?Recorded ?Last Taken ?Type Lift Chair #1 ea 12/08/20 Unknown Rx diaper,brief,adult,disposable #200 ea 09/22/23 Unknown Rx (Adjustable Underwear) cholecalciferol (vitamin D3) 50 25 mcg PO DAILY supplement 12/29/23 09/21/24 07:56 History mcg (2,000 unit) capsule thiamine HCl (vitamin B1) 100 mg 100 mg PO DAILY #90 tabs 12/30/23 09/21/24 07:59 Rx tablet multivitamin (One Daily 1 tab PO DAILY #90 tabs 06/02/24 09/21/24 07:58 Rx Multivitamin tablet) [id number] 1 cap PO TID Pancreatic Enzyme 07/30/24 09/21/24 07:57 History 24,000-76,000-120,000 unit capsule,delayed rel (Creon) potassium chloride 20 mEq 20 meq PO BID SUPPLEMENT 07/30/24 09/22/24 07:58 History tablet,extended release spironolactone 25 mg tablet 25 mg PO DAILY Diuretic 08/05/24 08/26/24 History (Aldactone) Held on 09/15/24. Instructions: Patient refusing to take acetaminophen 325 mg tablet 650 mg (2 x 325 mg) PO Q4H PRN PRN 08/11/24 Unknown Rx Fever, pain -04/22 #0 tabs bumetanide 0.5 mg tablet 0.5 mg PO BID 30 days #0 tabs 08/30/24 08/26/24 Rx Held on 09/15/24. Instructions: Patient is refusing to take metoprolol tartrate 25 mg tablet 25 mg PO BID 30 days #0 tabs 08/30/24 Unknown Rx aripiprazole 10 mg tablet 10 mg PO DAILY #30 tabs 09/14/24 09/21/24 08:54 Rx buspirone 10 mg tablet 10 mg PO TID #90 tabs 09/14/24 09/21/24 20:55 Rx folic acid 1 mg tablet 1 mg PO BREAKFAST #90 tabs 09/15/24 09/21/24 07:56 Rx midodrine 5 mg tablet 5 mg PO TID #90 tabs 09/15/24 09/22/24 20:58 Rx digoxin 250 mcg (0.25 mg) tablet 250 mcg PO DAILY 30 days #30 tabs 09/20/24 09/22/24 08:56 Rx albuterol sulfate 90 mcg/actuation 2 puff inhalation Q4H PRN wheezing 09/21/24 09/22/24 17:54 History aerosol inhaler bisacodyl 5 mg tablet,delayed 20 mg (4 x 5 mg) PO ONCE #4 tabs 09/21/24 Unknown Rx release polyethylene glycol 3350 17 238 g PO ONCE #238 grams 09/21/24 Unknown Rx gram/dose oral powder ursodiol 250 mg tablet 250 mg PO BID 09/22/24 09/21/24 20:59 History amoxicillin 875 mg-potassium 1 tab PO BID 09/23/24 09/22/24 08:00 History clavulanate 125 mg tablet Allergy/AdvReac Type Severity Reaction Status Date / Time No Known Allergies Allergy Verified 09/22/24 22:06 Family History Mother Heart disease Osteoporosis Father Lung fibrosis Surgical History History of hip replacement S/P tubal ligation History of esophagogastroduodenoscopy (EGD) Hx of kyphoplasty History of back surgery History of wisdom tooth extraction Hx of total hip arthroplasty S/P kyphoplasty History of tubal ligation Social History household members: none housing: group home current occupational status: disabled Smoking Status: Former smoker Tobacco: How many years used: 2 Electronic Cigarette Use: not used how long ago did patient quit smoking: Smoked minimally age [age]. second hand exposure: No alcohol intake: former details: Sober since 06/04/24. substance use type: does not use what type of physical activity do you participate in: none seatbelt use: always do you feel safe at home: Yes additional social history: single ROS ROS ED Constitutional Constitutional ED: Denies chills or fever(s) ENT ENT ED: Reports rhinorrhea and other Details: Nasal congestion Cardiovascular Cardiovascular: Reports as per HPI and chest pain; Denies palpitations Respiratory/Chest Respiratory/Chest: Reports cough and dyspnea; Denies sputum Gastrointestinal Gastrointestinal: Reports abdominal pain and other Details: Reports intermittent bright red blood per rectum. Reports abdominal distention associated with her ascites ; Denies diarrhea, melena or vomiting Genitourinary Genitourinary ED: Denies dysuria Musculoskeletal Musculoskeletal: Reports other Details: Chronic back pain?unchanged ; Denies arthralgias or myalgias Integumentary Denies rash Neurologic Neurologic: Denies weakness Psychiatric Psychiatric: Reports anxiety Hematologic/Lymphatic Hematologic/Lymphatic: Reports easy bleeding and easy bruising EXAM Physical Exam Const Vital Signs: 09/22/24 22:06 09/22/24 22:39 09/22/24 22:39 Temperature 97.6 F L Temperature Source Temporal Pulse Rate 89 Respiratory Rate 18 Respiratory Effort Normal Non-Labored Respiratory Pattern Normal Blood Pressure 97/56 L Blood Pressure Mean 69 Pulse Ox 98 100 Oxygen Delivery Method Room Air Nasal Cannula Oxygen Flow Rate (L/min) 2 09/22/24 23:00 09/23/24 00:00 09/23/24 01:00 Temperature Temperature Source Pulse Rate 85 84 87 Respiratory Rate 18 18 14 Respiratory Effort Respiratory Pattern Blood Pressure 96/46 L 91/48 L 92/51 L Blood Pressure Mean 62 62 64 Pulse Ox 100 95 98 Oxygen Delivery Method Nasal Cannula Nasal Cannula Nasal Cannula Oxygen Flow Rate (L/min) 2 2 2 09/23/24 01:46 09/23/24 02:00 Temperature 98.4 F Temperature Source Pulse Rate 88 93 Respiratory Rate 16 11 L Respiratory Effort Respiratory Pattern Blood Pressure 94/57 L 91/56 L Blood Pressure Mean 69 67 Pulse Ox 95 97 Oxygen Delivery Method Room Air Oxygen Flow Rate (L/min) Constitutional Narrative: Chronically ill-appearing, no acute distress General Appearance ED: pallor HEENT Reports moist mucous membranes HEENT Narrative: No active epistaxis at this time. Right sided nasal packing in place normocephalic and atraumatic Eyes PERRL Neck supple and no JVD Chest Wall inspection of chest normal and palpation of chest normal Resp normal respiratory effort and clear to auscultation bilaterally Auscultation: Negative for rales or rhonchi Cardio regular rate, regular rhythm and no murmurs Peripheral Pulses: pulses 2+ throughout GI GI Narrative: Distended abdomen with fluid wave present. Mild suprapubic tenderness to palpation. No diffuse tenderness or tenderness out of proportion to exam. Melena on exam. Guaiac positive. Extremity normal to inspection General Extremety ED: Negative for edema General Extremity: Negative for edema Neuro oriented x3 Neuro Narrative: No asterixis Sensorium / Orientation: awake and alert Motor Exam: general weakness Psych Mood & Affect: anxious Skin General Skin Exam: pallor; Negative for jaundice MDM MDM MDM Narrative Medical decision making narrative: Patient's evaluated for an episode of low blood pressure and then chest pain. Patient appears chronically ill. Feels that her chest pain was related to anxiety associate with her low blood pressure but does have multiple comorbidities. In addition she tells me she has been having bleeding that has been both rectal as well as vaginal. Differential includes hypovolemia, acute anemia, decompensated liver failure, MARILEE, ACS as well as ingestion of blood from recent epistaxis. Patient has a soft blood pressure in the ER but maps remained above 60 and RR stable. Vital signs otherwise normal. She is on 2 L of oxygen which is chronic. Cardiopulmonary indeterminant but given her HPI lower suspicion for ACS as a primary cause of her symptoms. Hemoglobin is low at 8.9 but stable compared to yesterday was 9.1. Earlier this month however it was 11.3. She has elevation of her PT likely secondary to her liver disease. Lactate is normal. High sensitive troponin initially mildly elevated at 33 and then on repeat 23. EKG shows chronic ischemic changes but no acute process. Patient does have melena on rectal exam. She has an uptrending BUN at 24 with a normal creatinine. Type and screen is sent. Patient will be admitted for further hemodynamic monitoring as the cause of her melena is not clear if this is an acute upper GI bleed or associate with ingested blood from her recent epistaxis. Regardless with her comorbidities and auto anticoagulation due to her cirrhosis I do think she would benefit from inpatient monitoring. Case discussed with hospitalist as well as GI, Friend will see the patient on consult. Patient remains hemodynamic stable in the ER with no active bleeding at this time. Lab Data Attestation: I reviewed the patient's lab results. Labs: Laboratory Results - last 24 hr 09/22/24 09/22/24 09/23/24 22:18 23:10 00:35 WBC 10.3 RBC 2.82 L Hgb 8.9 L Hct 27.2 L MCV 96.5 MCH 31.6 MCHC 32.7 RDW Std Deviation 70.6 H RDW Coeff of Laxmi 20.1 H Plt Count 140 L MPV 11.6 Immature Gran % (Auto) 0.200 Neut % (Auto) 66.1 Lymph % (Auto) 19.3 [place] % (Auto) 9.1 Eos % (Auto) 4.9 Baso % (Auto) 0.4 Absolute Neuts (auto) 6.8 Absolute Lymphs (auto) 1.98 Nucleated RBC % 0 Differential Comment SCANNED Platelet Estimate SLT DEC Polychromasia 1+ Anisocytosis 2+ Ovalocytes 1+ Schistocytes RARE PT 20.0 H INR 1.7 Sodium 138 Cancelled Potassium 4.4 Cancelled Chloride 105 Cancelled Carbon Dioxide 22.4 Cancelled Anion Gap 10 Cancelled BUN 24 H Cancelled Creatinine 0.95 Cancelled Estim Creat Clear Calc 52.70 Est GFR (MDRD) Non-Af 67 Cancelled BUN/Creatinine Ratio 24.8 H Cancelled Glucose 110 H Cancelled Lactic Acid 1.9 Calcium 8.6 Cancelled Phosphorus Cancelled Magnesium 1.6 Total Bilirubin 2.28 H Cancelled Direct Bilirubin 1.37 H AST 41 H Cancelled ALT 22 Cancelled Alkaline Phosphatase 145 H Cancelled Troponin T High Sens 33 H Troponin T Hi Sens 2 Hr 23 H Total Protein 6.5 Cancelled Albumin 2.7 L Cancelled Globulin 3.8 Cancelled Albumin/Globulin Ratio Cancelled Lipase 9 L Vitamin B12 600 TSH 0.361 Blood Type O POSITIVE Antibody Screen NEGATIVE Crossmatch See Detail Radiography Chest X-Ray - ED: 1 View, Read by ED Physician, Read by Radiologist, No Acute Disease and - (Trace bilateral pleural effusions) Diagnostic Testing: Clinical Impression(s) from Imaging Studies Chest X-Ray 09/22/24 23:00 IMPRESSION: Possible trace bilateral pleural effusions versus platelike atelectasis. Reading Location: [facility] Abdomen/Pelvis CT 09/23/24 01:38 IMPRESSION: Small area of mild high density is seen within the 4th portion of the duodenum area of the duodenal jejunal junction for example coronal 63 and 60 5 May represent blush of contrast, possible active GI bleed, clinically correlate. Prominent loops of bowel throughout the abdomen with scattered fluid levels may represent ileus mild tapering of the bowel lumen towards the terminal ileum without a focal clear transition point identified at this time. The common bile duct is more prominent in size currently measuring 8 mm, previously around 4 mm. No intrahepatic biliary ductal dilation. May correlate further with LFTs and alkaline phosphatase as warranted. No calcific stone identified within the duct. Small to moderate free fluid, ascites increased from the prior study. Small right and trace left pleural effusions with associated partial passive collapse, atelectasis. One or more dose reduction techniques were used (e.g., Automated exposure control, adjustment of the mA and/or kV according to patient size, use of iterative reconstruction technique). Reading Location: [facility] Rhythm Strip Rhythm Strip: Sinus Rhythm Rate: 89 Ectopy: None EKG Initial EKG: Attestation: I personally reviewed and interpreted this EKG as follows: Interpretation: Sinus Rhythm Comments: Normal sinus rhythm at a rate of 89 bpm Short KS interval at 104 ms Normal axis Normal QRS and QTc T wave inversions in inferior and precordial leads Slight morphology change with V2 but poor baseline Prior EKG tracings: available for review Prior: Unchanged Follow-up EKG: Attestation: I personally reviewed and interpreted this EKG as follows: Interpretation: Sinus Rhythm Comments: Normal sinus rhythm at a rate of 88 bpm Goal will change QRS Normal axis Normal intervals T wave inversions in inferior leads as well as V3 through V6 with no reciprocal changes No change compared to prior EKG Management Discussion w/another healthcare provider: Hospitalist and Security Systems Engineer Discharge Plan Dx/Rx/DC Orders Clinical Impression: Melena, Chest pain, Cirrhosis of liver with ascites, Right-sided epistaxis, Anemia Disposition Disposition: Acute Care Hospital [facility] Discharge Date/Time: 09/23/24 02:54
[2024-09-22 23:00] VITALS: BP 96/46; PULSE 85; RESP 18; O2SAT 100
--- NOTE | 2024-09-22 23:00 | RAD_ITS ---
PROCEDURE: Chest radiograph REASON FOR EXAM: CHEST PAIN TECHNIQUE: Frontal view of the chest. COMPARISON: None. FINDINGS: Cardiomediastinal silhouette is within normal limits. Low lung volumes. Possible trace bilateral pleural effusions. Lungs are otherwise clear. No sizable pneumothorax. RAD/Chest 1 View (Portable) IMPRESSION: Possible trace bilateral pleural effusions versus platelike atelectasis. Reading Location: [facility]
[2024-09-22 23:05] LABS: Anion Gap 10 (5-15); BUN 24 mg/dL (4-19); BUN/Creat Ratio 24.8 RATIO (10-20); Calcium,Total 8.6 mg/dL (7.6-11.0); Carbon Dioxide 22.4 mmol/L (21.0-32.0); Chloride 105 mmol/L (98-108); Creatinine, Serum 0.95 mg/dL (0.70-1.20); EST Glomerular Filtration Rate 67 (>60); Glucose 110 mg/dL (70-99); Potassium 4.4 mmol/L (3.3-5.1); Sodium Level 138 mmol/L (133-145)
--- NOTE | 2024-09-22 23:10 | EKG12_ITS ---
Test Reason : REPEAT Blood Pressure : */* mmHG Vent. Rate : 88 BPM Atrial Rate : 88 BPM P-R Int : 120 ms QRS Dur : 76 ms QT Int : 338 ms P-R-T Axes : 13 47 260 degrees QTcB Int : 408 ms Normal sinus rhythm Low voltage QRS ST & T wave abnormality, consider inferior ischemia ST & T wave abnormality, consider anterolateral ischemia Abnormal ECG Confirmed by MARI THOMAS, JOSE ([id number]), commissioning editor EDITH QUINTERO ([id number]) on 09/27/2024 10:53:11 AM Referred By: Confirmed By: JOSE GUERRA MD
[2024-09-22 23:29] LABS: AST(SGOT) 41 U/L (<=31); Alanine Aminotransfer ALT/SGPT 22 U/L (<=34); Albumin, Serum 2.7 g/dL (3.4-4.8); Alkaline Phosphatase 145 U/L (35-104); Bilirubin, Direct 1.37 mg/dL (0.00-0.30); Globulin 3.8 g/dL (2.2-4.2); Lipase 9 U/L (13-75); Protein, Total 6.5 g/dL (5.9-8.4); Total Bilirubin 2.28 mg/dL (0.00-1.30)
[2024-09-22 23:31] LABS: International Normalized Ratio 1.7
[2024-09-22 23:41] LABS: Lactic Acid 1.9 mmol/L (0.0-2.0)
[2024-09-23] VITALS (11 sets, daily range): BP systolic 91–115; BP diastolic 48–62; PULSE 84–110; RESP 11–20; TEMP 36.4–36.9; O2SAT 93–98; BMI 29.5; BMI 29.0
[2024-09-23 00:25] LABS: Anisocytosis 2+; Differential Comment SCANNED; Ovalocyte 1+; Platelet Estimate SLT DEC (ADEQ); Polychromasia 1+; Schistocytes RARE
[2024-09-23] MEDS: 0.9% Normal Saline (500mL Bag) 500 ML 999 ML IV (01:07)
[2024-09-23 01:08] LABS: Troponin T High Sens 2 HR 23 ng/L (<=14)
--- NOTE | 2024-09-23 01:33 | PCM.HP.STD ---
[facility] Date of Admission: 09/23/24 Date of Service: 09/23/24 Chief Complaint: Low Blood Pressure, Chest Pain, Recent Epistaxis and Vaginal Bleeding. [facility] Adithya WHITNEY, is a 64 F with a past medical history of essential hypertension; metoprolol, bumetanide and spironolactone, overweight; with BMI of 28.5 this admission, history of VTE; not on anticoagulation, history of cirrhosis with ascites due to chronic EtOH abuse (allegedly quit 05/2024) with recent paracentesis within the last month, history of alcoholic pancreatitis; on pancreatic enzymes with meals plus prn simethicone, history of orthostatic hypotension; on midodrine 10 mg TID, history of polycythemia, history of bipolar II disorder; on buspirone, haloperidol and aripiprazole, history of cannabis abuse, history of tubal ligation, history of cystocele, history of bowel and bladder incontinence, history of pressure sore on buttocks, scoliosis, osteoporosis; with history of vertebral compression fractures treated with L1-L2 kyphoplasty (2020), OA; s/p Right THR and previous back surgery with chronic back pain, chronic debility; with patient using a walker to mobilize at baseline and recently diagnosed COVID-19 (07/2024) and recent admission here from August 26, 2024 to August 30, 2024 with nausea, vomiting, abdominal pain and SOB with CT scan of the abdomen and pelvis that revealed fluid-filled dilated loops of small bowel with scattered air-fluid levels and adjacent mild ascites and engorgement of the adjacent vessels with questionable transition point in the anterior mid abdominal pelvic region with mild decompressed distal small bowel loops with findings that may relate to a small bowel obstruction and/or ileus in addition to dilated appendix with wall thickening and subtle periappendiceal stranding which is new in the interim findings are indeterminate for an early acute pancreatitis with the ER physician then speaking to the general surgeon on-call who favored likely ileus and doubted the diagnosis of appendicitis with subsequent recommendation to admit this patient to the hospitalist service with formal surgical consultation done in the a.m. She was also noted to have laboratory evidence of Hypokalemia of 3.4 mmol/L, Hypomagnesemia of 1.5 mg/dL and Hyperbilirubinemia with a Total Bilirubin of 3.8 mg/dL, Direct Bilirubin of 1.88 mg/dL, AST of 59 units/L and ALT of 22 units/L with Alkaline Phosphatase of 238 units/L plus Hyperammonemia with level of 58 ?mol/L present on admission with patient ultimately diagnosed with ileus primarily due to cirrhosis and ascites and poor mobility complicated by paroxysmal atrial fibrillation with rapid ventricular response and acute severe protein calorie malnutrition who now re-presents to [facility] ER complaining of low blood pressure, chest pain, recent epistaxis and vaginal bleeding. Ms. Whitney reports her symptoms began approximately 1 day prior to admission when she developed a severe bout of epistaxis that caused her to come to the ER yesterday. They were able to stop the bleeding and she was eventually discharged home with Right-sided nasal packing still in place. Then approximately 1 hour prior to arrival she began to feel lightheaded and subsequently checked her blood pressure which was allegedly ~60/40 mmHg. She states she then became very nervous about her blood pressure and then began to develop chest pain that she describes as substernal, pressure-like, burning, moderate, ~5/10, and nonradiating with nothing seeming to make the pain better or worse so she decided to come back in for further evaluation and treatment. She affirms that she has been taking her midodrine as prescribed. She went on to inform the ER physician that she has been having intermittent bright red blood in her stools as well as vaginal bleeding lately with the patient already pre-scheduled to have a biopsy of her cervix on Friday, September 27, 2024. She also stated she has increasing abdominal distention with worsening indigestion for the past few days with patient feeling like she is near due for repeat paracentesis. She admits to runny nose and nasal congestion with nonproductive cough and shortness of breath along with intermittent generalized abdominal pain and distention causing indigestion, unchanged chronic back pain. There was no report of related fever, chills, sore throat, ear pain, dysuria, arthralgias, myalgias, rash, headache or focal neurologic weakness. In the ER she was confirmed to have relative hypotension with a blood pressure of 94/57 mmHg noted shortly after admission along with a hemoglobin of 8.9 g/dL (down from 9.1 g/dL yesterday and 11.3 g/dL on September 15, 2024) with an elevated INR of 1.7 and increased PT of 20 seconds consistent with mild auto-anticoagulation from chronic liver disease with patient suspected to have blood in stools from recent epistaxis with patient noted to have melena in ER with corresponding guaiac positive stool and CT in ER suggestive of bleeding in the 4th portion of the duodenum with patient subsequently having a voluminous melanotic stool shortly after arrival to the PCU. After my discussion with the ER physician it was decided to pursue a CT scan of the abdomen/pelvis to reassess for possible cervical/uterine mass in addition to plans for transvaginal ultrasound in a.m. She was then admitted to the PCU for ongoing care for a stay that is expected to extend beyond 2 midnights. [facility] Medical History Bipolar II disorder Alcohol use disorder, moderate, dependence Hypertension Alcoholic hepatitis Cirrhosis History of ascites History of cirrhosis Ileus Polycythemia Pressure sore on buttocks Alcohol abuse Generalized weakness Cystocele History of vertebral compression fracture Debility Venous thromboembolism (VTE) prophylaxis provided within 24 hours of arrival Vertebral compression fracture Intractable low back pain Abnormal CT of the chest Anxiety Chronic back pain Osteoporosis Arthritis Compression fracture of thoracic spine, non-traumatic Pancreatitis Urinary urgency Marijuana use Shortness of breath on exertion Leg cramps Seborrheic dermatitis Neck pain Bowel incontinence Urinary incontinence Alcoholic pancreatitis Scalp psoriasis Debility Wears contact lenses Anxiety Walker as ambulation aid Injury of head and neck Difficulty swallowing Non-smoker Pain at injection site Compression fracture Depression Alcohol use Osteoporosis Scoliosis Home Medications ?Medication ?Instructions ?Recorded ?Last Taken ?Type Lift Chair #1 ea 12/08/20 Unknown Rx diaper,brief,adult,disposable #200 ea 09/22/23 Unknown Rx (Adjustable Underwear) cholecalciferol (vitamin D3) 50 25 mcg PO DAILY supplement 12/29/23 09/21/24 07:56 History mcg (2,000 unit) capsule thiamine HCl (vitamin B1) 100 mg 100 mg PO DAILY #90 tabs 12/30/23 09/21/24 07:59 Rx tablet multivitamin (One Daily 1 tab PO DAILY #90 tabs 06/02/24 09/21/24 07:58 Rx Multivitamin tablet) [id number] 1 cap PO TID Pancreatic Enzyme 07/30/24 09/21/24 07:57 History 24,000-76,000-120,000 unit capsule,delayed rel (Creon) potassium chloride 20 mEq 20 meq PO BID SUPPLEMENT 07/30/24 09/22/24 07:58 History tablet,extended release spironolactone 25 mg tablet 25 mg PO DAILY Diuretic 08/05/24 08/26/24 History (Aldactone) Held on 09/15/24. Instructions: Patient refusing to take acetaminophen 325 mg tablet 650 mg (2 x 325 mg) PO Q4H PRN PRN 08/11/24 Unknown Rx Fever, pain -04/22 #0 tabs bumetanide 0.5 mg tablet 0.5 mg PO BID 30 days #0 tabs 08/30/24 08/26/24 Rx Held on 09/15/24. Instructions: Patient is refusing to take metoprolol tartrate 25 mg tablet 25 mg PO BID 30 days #0 tabs 08/30/24 Unknown Rx aripiprazole 10 mg tablet 10 mg PO DAILY #30 tabs 09/14/24 09/21/24 08:54 Rx buspirone 10 mg tablet 10 mg PO TID #90 tabs 09/14/24 09/21/24 20:55 Rx folic acid 1 mg tablet 1 mg PO BREAKFAST #90 tabs 09/15/24 09/21/24 07:56 Rx midodrine 5 mg tablet 5 mg PO TID #90 tabs 09/15/24 09/22/24 20:58 Rx digoxin 250 mcg (0.25 mg) tablet 250 mcg PO DAILY 30 days #30 tabs 09/20/24 09/22/24 08:56 Rx albuterol sulfate 90 mcg/actuation 2 puff inhalation Q4H PRN wheezing 09/21/24 09/22/24 17:54 History aerosol inhaler bisacodyl 5 mg tablet,delayed 20 mg (4 x 5 mg) PO ONCE #4 tabs 09/21/24 Unknown Rx release polyethylene glycol 3350 17 238 g PO ONCE #238 grams 09/21/24 Unknown Rx gram/dose oral powder ursodiol 250 mg tablet 250 mg PO BID 09/22/24 09/21/24 20:59 History amoxicillin 875 mg-potassium 1 tab PO BID 09/23/24 09/22/24 08:00 History clavulanate 125 mg tablet Allergy/AdvReac Type Severity Reaction Status Date / Time No Known Allergies Allergy Verified 09/22/24 22:06 Family History Mother Heart disease Osteoporosis Father Lung fibrosis Surgical History History of hip replacement S/P tubal ligation History of esophagogastroduodenoscopy (EGD) Hx of kyphoplasty History of back surgery History of wisdom tooth extraction Hx of total hip arthroplasty S/P kyphoplasty History of tubal ligation Social History household members: none housing: group home current occupational status: disabled Smoking Status: Former smoker Tobacco: How many years used: 2 Electronic Cigarette Use: not used how long ago did patient quit smoking: Smoked minimally age [age]. second hand exposure: No alcohol intake: former details: Sober since 06/04/24. substance use type: does not use what type of physical activity do you participate in: none seatbelt use: always do you feel safe at home: Yes additional social history: single ROS ROS Narrative Review of Systems: Constitutional: Patient denies fever or chills. Eyes: Patient denies changes in vision or discharge from eyes. ENT: Patient admits to runny nose and nasal congestion but she denies sore throat or ear pain. Resp: Patient admits to shortness of breath and nonproductive cough as per HPI. CV: Patient admits to chest pain as per HPI. She denies palpitations, heart racing or lower extremity edema. GI: Patient admits to generalized abdominal pain with intermittent BRBPR and increasing abdominal distention with dyspepsia attributed to worsening ascites as per HPI. : Patient denies dysuria or urinary frequency. MSK: Patient admits to chronic back pain which is unchanged from previous but she denies arthralgias or myalgias. Skin: Patient denies rash, abscess, wounds or jaundice. Psych: Patient admits to heightened anxiety after noting low blood pressure earlier this evening as per HPI. She denies SI or HI. Neuro: Patient denies headache, paresthesias or focal neurologic weakness. Allergy: Patient denies lip swelling, tongue swelling or urticaria. Hematology: Patient admits to easy bleeding and easy bruisability as per HPI. Endocrinology: Patient denies polyuria, polydipsia or polyphagia. 14 point ROS otherwise negative except for positives noted above in HPI. Vital Signs Vital Signs Vital Signs: 09/22/24 22:06 09/22/24 22:39 09/22/24 22:39 Temperature 97.6 F L Temperature Source Temporal Pulse Rate 89 Respiratory Rate 18 Respiratory Effort Normal Non-Labored Respiratory Pattern Normal Blood Pressure 97/56 L Blood Pressure Mean 69 Pulse Ox 98 100 Oxygen Delivery Method Room Air Nasal Cannula Oxygen Flow Rate (L/min) 2 09/22/24 23:00 09/23/24 00:00 09/23/24 01:00 Temperature Temperature Source Pulse Rate 85 84 87 Respiratory Rate 18 18 14 Respiratory Effort Respiratory Pattern Blood Pressure 96/46 L 91/48 L 92/51 L Blood Pressure Mean 62 62 64 Pulse Ox 100 95 98 Oxygen Delivery Method Nasal Cannula Nasal Cannula Nasal Cannula Oxygen Flow Rate (L/min) 2 2 2 Weight Weight: 161 lb 2.526 oz Body Mass Index (BMI) 49.1 Physical Exam Const alert, oriented x3, no apparent distress and average body habitus Constitutional Narrative: Patient is chronically ill appearance. General Appearance: cooperative HEENT normocephalic, head/scalp atraumatic, hearing grossly normal bilaterally and moist oral mucous membranes HEENT Narrative: Right-sided nasal packing still in place. Eyes PERRL and EOMs intact bilaterally Neck no lymphadenopathy and supple Resp normal respiratory effort, no retractions, no use of accessory muscles and clear to auscultation bilaterally Cardio regular rate and regular rhythm GI GI Narrative: Distended abdomen with ascites fluid wave present. Mild suprapubic tenderness to palpation noted. Melena noted on exam confirmed by guaiac positive stool. Extremity normal to inspection, full ROM and no clubbing, cyanosis or edema Skin Skin Narrative: Patient has no evidence of rash, abscess, wounds or jaundice. Neuro oriented x3, CN's II-XII intact bilaterally, moves all extremities and no focal motor deficits Sensorium / Orientation: awake, alert, oriented to person, oriented to place and oriented to time Speech: speech normal Psych Mood & Affect: anxious Results Medical Records Data Attestation: I reviewed the patient's medical records Lab / Micro Data Attestation: I reviewed the patient's lab results. 09/23/24 03:45 09/23/24 03:45 Labs: Laboratory Results - last 24 hr 09/22/24 22:18: WBC 10.3, RBC 2.82 L, Hgb 8.9 L, Hct 27.2 L, MCV 96.5, MCH 31.6, MCHC 32.7, RDW Std Deviation 70.6 H, RDW Coeff of Laxmi 20.1 H, Plt Count 140 L, MPV 11.6, Immature Gran % (Auto) 0.200, Neut % (Auto) 66.1, Lymph % (Auto) 19.3, [place] % (Auto) 9.1, Eos % (Auto) 4.9, Baso % (Auto) 0.4, Absolute Neuts (auto) 6.8, Absolute Lymphs (auto) 1.98, Nucleated RBC % 0, Differential Comment SCANNED, Platelet Estimate SLT DEC, Polychromasia 1+, Anisocytosis 2+, Ovalocytes 1+, Schistocytes RARE, Sodium 138, Potassium 4.4, Chloride 105, Carbon Dioxide 22.4, Anion Gap 10, BUN 24 H, Creatinine 0.95, Estim Creat Clear Calc 52.70, Est GFR (MDRD) Non-Af 67, BUN/Creatinine Ratio 24.8 H, Glucose 110 H, Calcium 8.6, Total Bilirubin 2.28 H, Direct Bilirubin 1.37 H, AST 41 H, ALT 22, Alkaline Phosphatase 145 H, Troponin T High Sens 33 H, Total Protein 6.5, Albumin 2.7 L, Globulin 3.8, Lipase 9 L 09/22/24 23:10: PT 20.0 H, INR 1.7, Lactic Acid 1.9 09/23/24 00:35: Troponin T Hi Sens 2 Hr 23 H Micro: Microbiology 09/22/24 22:52 Mucosa - Nose SARS-CoV-2, Influenza & RSV (PCR) - Final 09/22/24 23:42 Stool Stool Occult Blood (BRADLEY) - Final Occult Blood Positive Rhythm Strip Rhythm Strip: Sinus Rhythm Rate: 89 Ectopy: None Imaging Radiology Impression Chest X-Ray 09/22/24 23:00 IMPRESSION: Possible trace bilateral pleural effusions versus platelike atelectasis. Reading Location: [facility] Imaging Services [address] [place] [address] Abdomen/Pelvis W IV Cont ONLY MR#: [id number] Acct: [id number] Name: PRASHANT WHITNEY Rep #: [id number] : 1960 F 64 From: Emir Doe MD PCP: Dr. Edward Mc MD Status: ADM BUDDY Study: Abdomen/Pelvis W IV Cont ONLY Date of Exam: 09/23/24 Exam# [id number] Ordering Dr: Elizabeth Trujillo DO PROCEDURE: ABDOMEN/PELVIS W IV CONT ONLY REASON FOR EXAM: GI BLEEDING TECHNIQUE: Abdomen and pelvis CT with intravenous contrast. Coronal and sagittal reformatted images IV CONTRAST: 92 cc Isovue 370 COMPARISON: 08/26/2024 FINDINGS: Lung bases: Small right and trace left pleural effusions with associated partial passive collapse, atelectasis. Liver: Somewhat small and nodular appearing liver, can not exclude underlying cirrhosis. The common bile duct is more prominent in size currently measuring 8 mm, previously around 4 mm. No intrahepatic biliary ductal dilation. May correlate further with LFTs and alkaline phosphatase as warranted. No calcific stone identified within the duct.. Gallbladder: Cholelithiasis nondistended gallbladder again noted. Spleen: Unremarkable. Pancreas: Atrophic with a few pancreatic calcifications again seen. Adrenals: Unremarkable. Kidneys: Symmetric nephrograms without hydronephrosis. A couple nonobstructing right intrarenal stones again noted. Small focal area of cortical scar left kidney again seen.. Bladder: Unremarkable. Reproductive Organs: Unremarkable. Bowel: Small area of mild high density is seen within the 4th portion of the duodenum area of the duodenal jejunal junction for example coronal 63 and 60 5 May represent blush of contrast, possible active GI bleed, clinically correlate. Prominent loops of bowel throughout the abdomen with scattered fluid levels may represent ileus mild tapering of the bowel lumen towards the terminal ileum without a focal clear transition point identified at this time. Gas and stool is seen within the colon.. Appendix: Is not well evaluated due to adjacent free fluid and lack of intraluminal air along most of the segments.. Lymph nodes: No suspicious lymph node enlargement. Vasculature: Major vascular structures are unremarkable. Peritoneum / Retroperitoneum: Small to moderate free fluid, ascites increased from the prior study.. No free air. A 2.2 cm presacral soft tissue nodular density axial 86 is again seen, nonspecific. Bones: [place] artifact from right hip replacement. Multilevel vertebral compression deformities and vertebroplasties again noted.. CT/Abdomen/Pelvis W IV Cont ONLY IMPRESSION: Small area of mild high density is seen within the 4th portion of the duodenum area of the duodenal jejunal junction for example coronal 63 and 60 5 May represent blush of contrast, possible active GI bleed, clinically correlate. Prominent loops of bowel throughout the abdomen with scattered fluid levels may represent ileus mild tapering of the bowel lumen towards the terminal ileum without a focal clear transition point identified at this time. The common bile duct is more prominent in size currently measuring 8 mm, previously around 4 mm. No intrahepatic biliary ductal dilation. May correlate further with LFTs and alkaline phosphatase as warranted. No calcific stone identified within the duct. Small to moderate free fluid, ascites increased from the prior study. Small right and trace left pleural effusions with associated partial passive collapse, atelectasis. One or more dose reduction techniques were used (e.g., Automated exposure control, adjustment of the mA and/or kV according to patient size, use of iterative reconstruction technique). Reading Location: [id number] CC: Dr. Elizabeth Trujillo DO; Dr. 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 Melanotic Stools with suspected PUD in the 4th part of the duodenum on CT this admission - Admit to PCU. Keep strict NPO. Start pantoprazole IV infusion. Type & Screen blood and plan to transfuse 2 units of PRBC's with voluminous melanotic stools produced shortly after arrival to PCU with further drop in hemoglobin to 8.1 g/dL since admission. Finally, we will consult gastroenterology to see this patient on rounds in the AM for further recommendations regarding EGD this admission with help appreciated in advance. 2. Symptomatic hypotension with a blood pressure of 94/57 mmHg noted shortly after admission along with a hemoglobin of 8.9 g/dL (down from 9.1 g/dL yesterday and 11.3 g/dL on September 15, 2024) in the setting of previously known orthostatic hypotension; on midodrine TID due to #1 - Give IV albumin to support blood pressure plus crystalloids to avoid hypotension. 3. Elevated INR of 1.7 and increased PT of 20 seconds consistent with mild auto-anticoagulation from chronic liver disease with patient initially suspected to have blood in stools from recent epistaxis with patient noted to have melena in ER with corresponding guaiac positive stool likely triggering #1 & #2 - We will keep n.p.o. except medications until further notice. Check PT/INR daily. Patient was not on anticoagulation or antiplatelet therapy at time of admission. 4. Recent severe episode of epistaxis yesterday with Right-sided nasal packing still in place adding to the medical complexity of #1 - #3 - Leave packing in place to prevent further bleeding. Start antibiotics with IV ceftriaxone while packing is in place to prevent infection. 5. Acute exacerbation of chronic anxiety in the setting of known bipolar II disorder; on buspirone, haloperidol and aripiprazole due to hypotensive blood pressure reading at home followed by chest pain arising from #1 - #4 - Give low-dose IV lorazepam prn for breakthrough symptoms. Continue home regimen as previous after GI evaluation is completed. Serialize troponin. Recent echocardiogram revealed LVEF ~55-60% with grade 1 diastolic dysfunction and mild LAE and [id number] MR with mild TR on August 05, 2024. 6. Vaginal bleeding recently with the patient already pre-scheduled to have a biopsy of her cervix on Friday, September 27, 2024 with adding to the burden of disease outlined from #1 - #5 - Check transvaginal ultrasound to evaluate for possible cervical/uterine mass. 7. History of cirrhosis with ascites due to chronic EtOH abuse (allegedly quit 05/2024) with most recent paracentesis apparently in July 2024 with patient having positive fluid-wave and significant reaccumulation of ascites accompanied by dyspepsia - Patient should be set up for paracentesis after her bleeding issues have resolved. 8. Recent admission here from August 26, 2024 to August 30, 2024 with nausea, vomiting, abdominal pain and SOB with CT scan of the abdomen and pelvis that revealed fluid-filled dilated loops of small bowel with scattered air-fluid levels and adjacent mild ascites and engorgement of the adjacent vessels with questionable transition point in the anterior mid abdominal pelvic region with mild decompressed distal small bowel loops with findings that may relate to a small bowel obstruction and/or ileus in addition to dilated appendix with wall thickening and subtle periappendiceal stranding which is new in the interim findings are indeterminate for an early acute pancreatitis with the ER physician then speaking to the general surgeon on-call who favored likely ileus and doubted the diagnosis of appendicitis with subsequent recommendation to admit this patient to the hospitalist service with formal surgical consultation done in the a.m. She was also noted to have laboratory evidence of Hypokalemia of 3.4 mmol/L, Hypomagnesemia of 1.5 mg/dL and Hyperbilirubinemia with a Total Bilirubin of 3.8 mg/dL, Direct Bilirubin of 1.88 mg/dL, AST of 59 units/L and ALT of 22 units/L with Alkaline Phosphatase of 238 units/L plus Hyperammonemia with level of 58 ?mol/L present on admission with patient ultimately diagnosed with ileus primarily due to cirrhosis and ascites and poor mobility complicated by paroxysmal atrial fibrillation with rapid ventricular response and acute severe protein calorie malnutrition - Noted. 9. Essential Hypertension; on metoprolol, bumetanide and spironolactone - Hold scheduled antihypertensives in light of #1. 10. Overweight; with BMI of 28.5 this admission - Weight loss will be recommended. Check TSH. 11. History of COVID-19 - Noted. 12. History of VTE; not on anticoagulation - Noted. 13. History of alcoholic pancreatitis; on pancreatic enzymes with meals plus prn simethicone - Stable. 14. History of polycythemia - Noted with hemoglobin of 8.9 g/dL present on admission. 15. History of cannabis abuse - Noted. UDS pending. 16. History of tubal ligation - Noted for the sake of completeness. 17. History of cystocele - Noted. 18. History of bowel and bladder incontinence - Stable. 19. History of pressure sore on buttocks - Noted. 20. Scoliosis - Stable. 21. Osteoporosis; with history of vertebral compression fractures treated with L1-L2 kyphoplasty (2020) - Stable. 22. OA; s/p Right THR and previous back surgery with chronic back pain - Stable. 23. Chronic debility; with patient using a walker to mobilize at baseline - Stable. 24. DVT prophylaxis - SCD's only in light of suspected active bleeding outlined in #1 contraindicating chemoprophylaxis. Total time: Approximately (but not less than) 75 minutes. Charges/Coding Visit Charges Inpatient E&M: 63332 Init Hosp L3
--- NOTE | 2024-09-23 01:38 | CT_ITS ---
PROCEDURE: ABDOMEN/PELVIS W IV CONT ONLY REASON FOR EXAM: GI BLEEDING TECHNIQUE: Abdomen and pelvis CT with intravenous contrast. Coronal and sagittal reformatted images IV CONTRAST: 92 cc Isovue 370 COMPARISON: 08/26/2024 FINDINGS: Lung bases: Small right and trace left pleural effusions with associated partial passive collapse, atelectasis. Liver: Somewhat small and nodular appearing liver, can not exclude underlying cirrhosis. The common bile duct is more prominent in size currently measuring 8 mm, previously around 4 mm. No intrahepatic biliary ductal dilation. May correlate further with LFTs and alkaline phosphatase as warranted. No calcific stone identified within the duct.. Gallbladder: Cholelithiasis nondistended gallbladder again noted. Spleen: Unremarkable. Pancreas: Atrophic with a few pancreatic calcifications again seen. Adrenals: Unremarkable. Kidneys: Symmetric nephrograms without hydronephrosis. A couple nonobstructing right intrarenal stones again noted. Small focal area of cortical scar left kidney again seen.. Bladder: Unremarkable. Reproductive Organs: Unremarkable. Bowel: Small area of mild high density is seen within the 4th portion of the duodenum area of the duodenal jejunal junction for example coronal 63 and 60 5 May represent blush of contrast, possible active GI bleed, clinically correlate. Prominent loops of bowel throughout the abdomen with scattered fluid levels may represent ileus mild tapering of the bowel lumen towards the terminal ileum without a focal clear transition point identified at this time. Gas and stool is seen within the colon.. Appendix: Is not well evaluated due to adjacent free fluid and lack of intraluminal air along most of the segments.. Lymph nodes: No suspicious lymph node enlargement. Vasculature: Major vascular structures are unremarkable. Peritoneum / Retroperitoneum: Small to moderate free fluid, ascites increased from the prior study.. No free air. A 2.2 cm presacral soft tissue nodular density axial 86 is again seen, nonspecific. Bones: [place] artifact from right hip replacement. Multilevel vertebral compression deformities and vertebroplasties again noted.. CT/Abdomen/Pelvis W IV Cont ONLY IMPRESSION: Small area of mild high density is seen within the 4th portion of the duodenum area of the duodenal jejunal junction for example coronal 63 and 60 5 May represent blush of contrast, possible active GI bleed, clinically correlate. Prominent loops of bowel throughout the abdomen with scattered fluid levels may represent ileus mild tapering of the bowel lumen towards the terminal ileum without a focal clear transition point identified at this time. The common bile duct is more prominent in size currently measuring 8 mm, previo usly around 4 mm. No intrahepatic biliary ductal dilation. May correlate further with LFTs and alkaline phosphatase as warranted . No calcific stone identified within the duct. Small to moderate free fluid, ascites increased from the prior study. Small right and trace left pleural effusions with associated partial passive co llapse, atelectasis. One or more dose reduction techniques were used (e.g., Automated exposure contr ol, adjustment of the mA and/or kV according to patient size, use of iterative reconstruction technique). Reading Location: [id number]
[2024-09-23] MEDS: Pantoprazole Sodium 40 MG in 0.9% Normal Saline (100mL MB+) 100 ML 330 MG IV ×3 (02:02→21:58)
--- NOTE | 2024-09-23 03:10 | US_ITS ---
EXAM: US Pelvis Transvaginal CLINICAL INDICATION: POSTMENOPAUSAL BLEEDING. TECHNIQUE: Real-time transvaginal pelvic ultrasound with image documentation. Transvaginal imaging was used for better evaluation of the endometrium and adnexa. COMPARISON: No relevant prior studies available. FINDINGS: UTERUS/CERVIX: Uterus is heterogeneous with punctate calcification. The uterus measures 5.9 x 3.2 x 2.0 cm. The endometrial stripe measures 0.43 cm in thickness. RIGHT OVARY: Right ovary not visualized. LEFT OVARY: Left ovary not visualized. FREE FLUID: Pelvic fluid could be physiologic. BLADDER: Empty bladder which cannot be evaluated with this probe. US/Pelvic w/ Transvaginal IMPRESSION: Pelvic fluid could be physiologic. Otherwise, no acute findings. Reading Location: [id number]
[2024-09-23 03:11] LABS: Magnesium 1.6 mg/dL (1.5-2.2)
[2024-09-23] MEDS: Albumin Human 25% (100 mL) 25 GM/100 ML BAG IV (03:31)
[2024-09-23 04:00] LABS: Absolute Lymphocyte Count 1.91 X10^3/uL (0.83-4.51); Absolute Neutrophil Count 6.6 X10^3/uL (2.0-7.7); Basophil# 0.03 X10^3/uL; Basophil% 0.3 % (0-1); Eosinophil# 0.47 X10^3/uL; Eosinophils% 4.7 % (0-5); Hemoglobin 8.1 g/dL (12.0-15.0); Lymphocyte # 1.91 X10^3/ul (0.83-4.51); Lymphocyte % 19.2 % (19-41); Mean Corp Hgb Conc 32.4 g/dL (32-36); Mean Corpuscular Hgb 31.2 pg (27.0-32.0); Mean Corpuscular Volume 96.2 fL (81-99); Mean Platelet Vol. 11.7 fl (6.2-12.0); Monocyte# 0.92 X10^3/uL; Monocyte% 9.2 % (0-10); NRBC Flagged by Analyzer 0 % (0-5); Neutrophil % 66.3 % (47-70); POSITIVE MORPHOLOGY YES; Platelet Count 123 K/mm3 (150-450); RBC Distribution Width CV 20.4 % (11.6-14.6)
[2024-09-23 04:03] LABS: Differential Indicated SCAN CRITERIA MET
[2024-09-23 04:06] LABS: International Normalized Ratio 1.7; Prothrombin Time (Protime)PT. 20.7 SECONDS (11.7-14.9)
[2024-09-23 04:21] LABS: Thyroid Stim Hormone (TSH) 0.361 uIU/mL (0.300-4.200); Vitamin B12 600 pg/mL (180-914)
[2024-09-23 04:32] LABS: Troponin T High Sens 4 HR 25 ng/L (<=14)
[2024-09-23 04:34] LABS: ALB/GLOB Ratio 0.7 RATIO (0.9-2.4); AST(SGOT) 39 U/L (<=31); Alanine Aminotransfer ALT/SGPT 19 U/L (<=34); Albumin, Serum 2.5 g/dL (3.4-4.8); Alkaline Phosphatase 132 U/L (35-104); Anion Gap 11 (5-15); BUN 23 mg/dL (4-19); Calcium,Total 8.4 mg/dL (7.6-11.0); Carbon Dioxide 20.8 mmol/L (21.0-32.0); Chloride 107 mmol/L (98-108); Creatinine, Serum 0.89 mg/dL (0.70-1.20); EST Glomerular Filtration Rate 72 (>60); Estimated Creatinine Clearance 58.99 ml/min (50-250); Globulin 3.5 g/dL (2.2-4.2); Glucose 92 mg/dL (70-99); Phosphorus 3.7 mg/dL (2.7-4.5); Potassium 4.3 mmol/L (3.3-5.1); Sodium Level 138 mmol/L (133-145); Total Bilirubin 1.96 mg/dL (0.00-1.30)
[2024-09-23 05:08] LABS: Anisocytosis 2+; Differential Comment SCANNED; Ovalocyte 1+; Platelet Estimate SLT DEC (ADEQ); Polychromasia 1+; Schistocytes RARE
[2024-09-23] MEDS: 0.9% Normal Saline (1000mL) 1,000 ML 50 ML IV (05:46)
[2024-09-23 05:54] LABS: Alcohol, Blood (Medical)-Serum < 10.1 mg/dL (<=10.0)
[2024-09-23] MEDS: Ceftriaxone 1 GM/50 ML BAG IV (11:33)
--- NOTE | 2024-09-23 14:49 | PCM.HOSP.N ---
Hospitalist Note Patient was seen and examined briefly today, she was transfused 2 units of packed red blood cells. We are awaiting an EGD to be performed today. Patient had a pelvic/transvaginal ultrasound performed which showed pelvic fluid but otherwise no acute findings. CBC will be rechecked tomorrow morning.
--- NOTE | 2024-09-23 15:45 | CASEMGMT ---
RN CM readmission note: Index admission: Admitted from [facility] 08/27 w/ A-Fib w/RVR, ileus vs SBO w N/V. Pt w/hx cirrhosis w/ascites d/t chronic ETOH abuse, alcoholic pancreatitis, parox A-Fib w/RVR, bipolar, Pt w/Ileus, surgery C/S, no intervention needed. Pt elected to not have paracentesis done on index admission. Pt dc'd back to [facility] 08/30 w/new Rx's for digoxin and metoprolol 25 mg BID (which was an increase from prior order of 12.5 mg BID). ED visit 09/22 d/t severe epistaxis, dc'd home w/ rt-sided nasal packing. Current admission: 09/23: Symptomatic hypotension, recent epistaxis, melena. RN CM to room. RN CM?introduced self and role at [facility]. Pt voices understanding and consents to assessment?at this time. Pt resting in bed in no distress at this time. Pt is A/O at this time and answers all questions appropriately. Full RN CM assessment completed at this time, as pt was dc'd back to the [facility] shortly @ index admission, and per pt, she was only there for a day or so prior to discharging back home, stating I'd had enough. Pt reports she had been staying @ [facility] for almost a total of 3 months. Care providers, pharmacy, and demographics verified/updated at this time. Strata:?3 PCP: Dr Mc Specialists: Dr Thompson-GI, Dr Cruz-endocrin, Dr Romero-ronda mggabino, Dr Fritz-ENT Preferred Pharmacy: [facility] Retail Insurance:[employer] [facility] Prescription Benefit: Yes Living Will/HPOA: Pt does not currently have LW/HCPOA and would like to complete, stating she would like to name her friend, Natalie, as primary HCPOA, and then her son, Dallas, as 1st alternative. Pt made aware if SW unable to meet w/her while @ [facility], she can schedule this to be done w/SW as an OP. LNOK: Friends, Sarah and Natalie, are listed as pt's contacts. Pt states she does have 2 sons, though, Dallas (lives in [place], [place]) and Cole (lives in [place], [place]), but states she does not talk w/them often. Living Arrangements: Lives alone in apartment w/3 steps to enter. Needs assistance @ baseline. Has CM through [employer] that starts w/ J, stating she does not remember her name. She has [employer] that come 5 days/week for 3 hrs/day. The aides assist her in the home, get her Rx's for her. She gets her groceries through [employer]. She states when the aides are not @ her home, she is able to manage okay on her own. She states her friend, Sarah, stops in and checks on her daily. Her friend, Natalie calls her weekly, and she texts a lot of people throughout the day. Pt used to go to [employer], but states does not go there anymore. Transportation:?Pt states she has not driven for about a year. She uses [employer] through her insurance to go to [employer]. DME: pt has a tub bench, medical alert, W/C, hospital bed, raised toilet, pulse ox, and O2 through [employer], stating she only wears it @ 2 l/m @ HS. She is not sure if she has any portable O2 tanks @ her home. She states, if she does have O2 tanks there, her friend, Sarah, has a [place] and can get into her apt and can bring the tank to the hospital for her to dc home on. Pt states no need for further DME at this time. HHC/SNF: Pt was @ [facility] for about 3 months and just dc'd home a few weeks ago. She states she is active w/HHC, but she is not sure what agency. man [place] customer assistant, [facility] will check w/[facility] to inquire if they set HHC up for pt and if so, what agency. Pt wishes to return home and states has no concerns with going home at time of discharge. CM?to follow for any increase in home oxygen needs and any further discharge planning/needs. Pt voices no further concerns/needs at this time. Advised pt to ask for CM?if any further questions/concerns/needs arise. Voices understanding. PLAN: Home w/[facility]. Jose BOWLINGN RN CM
--- NOTE | 2024-09-23 16:09 | CASEMGMT ---
Discharge Planning Per [facility], was set up with [facility] at discharge. ARTUR CM updated. Mely Burk DC Planning Asst.
--- NOTE | 2024-09-23 16:29 | CASEMGMT ---
Addendum entered by Mely Burk 09/24/24 10:42: Pt is active rec'ing SN/PT/OT. RN CM updated. Mely Burk DC Planning Asst. Original Note: Discharge Planning [facility] referral sent to N with note asking for disciplines pt is receiving. Mely Burk DC Planning Asst.
--- NOTE | 2024-09-23 18:08 | CON.PCM.GI_ITS ---
HPI Consult Data Date of Consult: 09/23/24 HPI Narrative HPI Narrative: PRASHANT MAZARIEGOS, is a 64-year-old female with history of pancreatitis, alcohol abuse, cirrhosis of the liver, thrombocytopenia, anemia and atrial fibrillation (not on anticoagulation) presenting for low blood pressure at home and chest pain. Patient states she felt lightheaded. She cannot completely tell me why she checked her blood pressure but she did and it was 60/40. She states she felt very nervous about her blood pressure being this low and then developed chest pain. She scribes as a pressure and burning. She states it is midline in her sternal area. She notes that she has been having indigestion for the past few days. She states that she thinks that the chest pain is because she was thinking about her low blood pressure. She states she is been compliant with her midodrine. She does tell me that she has been having intermittent bright red blood in her stool as well as vaginal bleeding lately. She states she is post have a biopsy of her cervix on Friday for this vaginal bleeding. She denies any melena. She notes that for the past few days she has also been feeling more short of breath and is had a cough. She reports nasal congestion. No fevers reported. She does report of abdominal distention but states that she gets regular paracentesis and feels that she is about due for 1. She was transfused 2 units of packed red blood cells for hemoglobin of 6. [facility] Medical History Bipolar II disorder Alcohol use disorder, moderate, dependence Hypertension Alcoholic hepatitis Cirrhosis History of ascites History of cirrhosis Ileus Polycythemia Pressure sore on buttocks Alcohol abuse Generalized weakness Cystocele History of vertebral compression fracture Debility Venous thromboembolism (VTE) prophylaxis provided within 24 hours of arrival Vertebral compression fracture Intractable low back pain Abnormal CT of the chest Anxiety Chronic back pain Osteoporosis Arthritis Compression fracture of thoracic spine, non-traumatic Pancreatitis Urinary urgency Marijuana use Shortness of breath on exertion Leg cramps Seborrheic dermatitis Neck pain Bowel incontinence Urinary incontinence Alcoholic pancreatitis Scalp psoriasis Debility Wears contact lenses Anxiety Walker as ambulation aid Injury of head and neck Difficulty swallowing Non-smoker Pain at injection site Compression fracture Depression Alcohol use Osteoporosis Scoliosis Home Medications ?Medication ?Instructions ?Recorded ?Last Taken ?Type Lift Chair #1 ea 12/08/20 Unknown Rx diaper,brief,adult,disposable #200 ea 09/22/23 Unknown Rx (Adjustable Underwear) cholecalciferol (vitamin D3) 50 25 mcg PO DAILY supple ment 12/29/23 09/21/24 07:56 History mcg (2,000 unit) capsule thiamine HCl (vitamin B1) 100 mg 100 mg PO DAILY #90 t abs 12/30/23 09/21/24 07:59 Rx tablet multivitamin (One Daily 1 tab PO DAILY #90 tabs 05/1509/21/24 07:58 Rx Multivitamin tablet) [id number]-[id number] 1 cap PO TID Pancreatic Enzy me 07/30/24 09/21/24 07:57 History 24,000-76,000-120,000 unit capsule,delayed rel (Creon) potassium chloride 20 mEq 20 meq PO BID SUPPLEMENT 09/22/24 07:58 History tablet,extended release spironolactone 25 mg tablet 25 mg PO DAILY Diuretic 08/26/24 History (Aldactone) Held on 09/15/24. Instructions: Patient refusing to take acetaminophen 325 mg tablet 650 mg (2 x 325 mg) PO Q4H PRN PRN 08/11/24 Unknown Rx Fever, pain -04/22 #0 tabs bumetanide 0.5 mg tablet 0.5 mg PO BID 30 days #0 tab s 08/30/24 08/26/24 Rx Held on 09/15/24. Instructions: Patient is refusing to take metoprolol tartrate 25 mg tablet 25 mg PO BID 30 days #0 tabs 08/30/24 Unknown Rx aripiprazole 10 mg tablet 10 mg PO DAILY #30 tabs 03/0 11/0509/21/24 08:54 Rx buspirone 10 mg tablet 10 mg PO TID #90 tabs 09/21/24 20:55 Rx folic acid 1 mg tablet 1 mg PO BREAKFAST #90 tabs 0 09/15/24 09/21/24 07:56 Rx midodrine 5 mg tablet 5 mg PO TID #90 tabs 5 09/22/24 20:58 Rx digoxin 250 mcg (0.25 mg) tablet 250 mcg PO DAILY 30 d ays #30 tabs 09/20/24 09/22/24 08:56 Rx albuterol sulfate 90 mcg/actuation 2 puff inhalation Q 4H PRN wheezing 09/21/24 09/22/24 17:54 History aerosol inhaler bisacodyl 5 mg tablet,delayed 20 mg (4 x 5 mg) PO ONCE #4 tabs 09/21/24 Unknown Rx release polyethylene glycol 3350 17 238 g PO ONCE #238 grams 0 09/21/24 Unknown Rx gram/dose oral powder ursodiol 250 mg tablet 250 mg PO BID 09/22/2409/21 20:59 History amoxicillin 875 mg-potassium 1 tab PO BID 09/23/2407/07 08:00 History clavulanate 125 mg tablet Allergy/AdvReac Type Severity Reaction Status Date / Time No Known Allergies Allergy Verified 09/22/24 22:06 Family History Mother Heart disease Osteoporosis Father Lung fibrosis Surgical History History of hip replacement S/P tubal ligation History of esophagogastroduodenoscopy (EGD) Hx of kyphoplasty History of back surgery History of wisdom tooth extraction Hx of total hip arthroplasty S/P kyphoplasty History of tubal ligation Social History household members: none housing: [facility] current occupational status: disabled Smoking Status: Former smoker Tobacco: How many years used: 2 Electronic Cigarette Use: not used how long ago did patient quit smoking: Smoked minimally age [age]. second hand exposure: No alcohol intake: former details: Sober since 06/04/24. substance use type: does not use what type of physical activity do you participate in: none seatbelt use: always do you feel safe at home: Yes additional social history: single ROS Constitutional Constitutional: Denies fatigue, fever(s), poor appetite, weight gain or weight loss Gastrointestinal Gastrointestinal: Denies belching, bloating, change in bowel habits, change in stool character, chewing difficulty, coffee ground emesis, constipation, cramping, diarrhea, dyspepsia, dysphagia, early satiety, excessive flatus, fecal incontinence, heartburn, hematemesis, hematochezia, hemorrhoids, loose stools, melena, nausea, odynophagia, rectal bleeding, tenesmus, vomiting or weight changes Physical Exam Const alert, oriented x3, no apparent distress and healthy appearing General Appearance: cooperative GI normal to inspection, nondistended, normoactive bowel sounds, soft to palpation, non-tender and non-distended Percussion: normal to percussion Rectal Exam: deferred Lab / Micro Data 09/23/24 03:45 09/23/24 03:45 Labs: Laboratory Results - last 24 hr 09/22/24 22:18: WBC 10.3, RBC 2.82 L, Hgb 8.9 L, Hct 27.2 L, MCV 96.5, MCH 31.6, MCHC 32.7, RDW Std Deviation 70.6 H, RDW Coeff of Laxmi 20.1 H, Plt Count 140 L, MPV 11.6, Immature Gran % (Auto) 0.200, Neut % (Auto) 66.1, Lymph % (Auto) 19.3, [place] % (Auto) 9.1, Eos % (Auto) 4.9, Baso % (Auto) 0.4, Absolute Neuts (auto) 6.8, Absolute Lymphs (auto) 1.98, Nucleated RBC % 0, Differential Comment SCANNED, Platelet Estimate SLT DEC, Polychromasia 1+, Anisocytosis 2+, Ovalocytes 1+, Schistocytes RARE, Sodium 138, Potassium 4.4, Chloride 105, Carbon Dioxide 22.4, Anion Gap 10, BUN 24 H, Creatinine 0.95, Estim Creat Clear Calc 52.70, Est GFR (MDRD) Non-Af 67, BUN/Creatinine Ratio 24.8 H, Glucose 110 H , Calcium 8.6, Total Bilirubin 2.28 H, Direct Bilirubin 1.37 H, AST 41 H, ALT 22, Alkaline Phosphatase 145 H, Troponin T High Sens 33 H, Total Protein 6.5, A lbumin 2.7 L, Globulin 3.8, Lipase 9 L 09/22/24 23:10: PT 20.0 H, INR 1.7, Lactic Acid 1.9 09/23/24 00:35: Sodium Cancelled, Potassium Cancelled, Chloride Cancelled, Carbon Dioxide Cancelled, Anion Gap Cancelled, BUN Cancelled, Creatinine Cancelled, Est GFR (MDRD) Non-Af Cancelled, BUN/Creatinine Ratio Cancelled, Glucose Cancelled, Calcium Cancelled, Phosphorus Cancelled, Magnesium 1.6, Total Bilirubin Cancelled, AST Cancelled, ALT Cancelled, Alkaline Phosphatase Cancelled, Troponin T Hi Sens 2 Hr 23 H, Total Protein Cancelled, Albumin Cancelled, Globulin Cancelled, Albumin/Globulin Ratio Cancelled, Vitamin B12 600, TSH 0.361, Blood Type O POSITIVE, Antibody Screen NEGATIVE, Crossmatch See Detail 09/23/24 03:45: WBC 10.0, RBC 2.60 L, Hgb 8.1 L, Hct 25.0 L, MCV 96.2, MCH 31.2, MCHC 32.4, RDW Std Deviation 70.0 H, RDW Coeff of Laxmi 20.4 H, Plt Count 123 L, MPV 11.7, Immature Gran % (Auto) 0.300, Neut % (Auto) 66.3, Lymph % (Auto) 19.2, [place] % (Auto) 9.2, Eos % (Auto) 4.7, Baso % (Auto) 0.3, Absolute Neuts (auto) 6.6, Absolute Lymphs (auto) 1.91, Nucleated RBC % 0, Differential Comment SCANNED, Platelet Estimate SLT DEC, Polychromasia 1+, Anisocytosis 2+, Ovalocytes 1+, Schistocytes RARE, PT 20.7 H, INR 1.7, Sodium 138, Potassium 4.3, Chloride 107, Carbon Dioxide 20.8 L, Anion Gap 11, BUN 23 H, Creatinine 0.89, Estim Creat Clear Calc 58.99, Est GFR (MDRD) Non-Af 72, BUN/Creatinine Ratio 26.0 H, Glucose 92, Calcium 8.4, Phosphorus 3.7, Total Bilirubin 1.96 H, AST 39 H, ALT 19, Alkaline Phosphatase 132 H, Troponin T Hi Sens 4Hr 25 H, Total Protein 6.0, Albumin 2.5 L, Globulin 3.5, Albumin/Globulin Ratio 0.7 L, Serum Folate 19.30, Digoxin 1.30, Ethyl Alcohol < 10.1 Micro: Microbiology 09/22/24 22:52 Mucosa - Nose SARS-CoV-2, Influenza & RSV (PCR) - Final 09/22/24 23:42 Stool Stool Occult Blood ([facility]) - Final Occult Blood Positive Rhythm Strip Rhythm Strip: Sinus Rhythm Rate: 89 Ectopy: None Imaging Radiology Impression Chest X-Ray 09/22/24 23:00 IMPRESSION: Possible trace bilateral pleural effusions versus platelike atelectasis. Reading [facility] Abdomen/Pelvis CT 09/23/24 01:38 IMPRESSION: Small area of mild high density is seen within the 4th portion of the duodenum area of the duodenal jejunal junction for example coronal 63 and 60 5 May represent blush of contrast, possible active GI bleed, clinically correlate. Prominent loops of bowel throughout the abdomen with scattered fluid levels may represent ileus mild tapering of the bowel lumen towards the terminal ileum without a focal clear transition point identified at this time. The common bile duct is more prominent in size currently measuring 8 mm, previously around 4 mm. No intrahepatic biliary ductal dilation. May correlate further with LFTs and alkaline phosphatase as warranted. No calcific stone identified within the duct. Small to moderate free fluid, ascites increased from the prior study. Small right and trace left pleural effusions with associated partial passive collapse, atelectasis. One or more dose reduction techniques were used (e.g., Automated exposure control, adjustment of the mA and/or kV according to patient size, use of iterative reconstruction technique). Reading Location: [id number] Pelvic/Transvag US 09/23/24 03:10 IMPRESSION: Pelvic fluid could be physiologic. Otherwise, no acute findings. Reading Location[facility] Assessment & Plan Assessment/Plan (1) Polycythemia: (2) Alcoholic hepatitis: QUALIFIERS: Ascites presence: unspecified Qualified Code(s): K 70.10 - Alcoholic hepatitis without ascites (3) Alcohol abuse: (4) Pressure sore on buttocks: QUALIFIERS: Pressure injury stage: stage 1 Laterality: right Q ualified Code(s): L89.311 - Pressure ulcer of right buttock, stage 1 (5) Melena: (6) Blood loss anemia: (7) Symptomatic hypotension: (8) Orthostatic hypotension: (9) Elevated INR: (10) Cirrhosis of liver with ascites: QUALIFIERS: Hepatic cirrhosis type: alcoholic cirrhosis Qualified Code(s): K70.31 - Alcoholic cirrhosis of liver with ascites (11) Guaiac positive stools: (12) Epistaxis: (13) Acute anxiety: (14) Chest pain: QUALIFIERS: Chest pain type: unspecified Qualified Code(s): R07.9 - Chest pain, unspecified (15) Postmenopausal bleeding: PLAN: Plan 64-year-old with history of alcoholic hepatitis, alcoholic pancreatitis and alcoholic induced cirrhosis presents with fatigue weakness discovered to be severely anemic. Currently, she received transfusion of 2 units of packed red blood cells and has some abdominal distention secondary to ascites. 06/11/2024-she was diagnosed with decompensated cirrhosis secondary to alcoholic hepatitis with new onset ascites and worsening anemia. She underwent an upper endoscopy. Findings: Grade I varices were found in the lower third of the esophagus. They were 4 mm in largest diameter. A 5 mm non-bleeding Erica-Cuevas tear with no stigmata of recent bleeding was found. Severe portal hypertensive gastropathy was found in the entire examined stomach. No gross lesions were noted in the duodenal bulb. Impression: - Grade I esophageal varices. - Erica-Cuevas tear. - Portal hypertensive gastropathy. - No gross lesions in the duodenal bulb. - No specimens collected. Patient will undergo repeat upper endoscopy divide upper GI tract for acute blood loss anemia. She was explained alternatives, risk and benefits include not withstanding bleeding, tract, sepsis, perforation, need for surgery. She will have ASA of 3. Charges/Coding Visit Charges Inpatient E&M: 39543 Init Hosp L3
[2024-09-23] MEDS: oxyCODONE 5 MG Tablet 10 MG PO (21:58)
[2024-09-24] VITALS (12 sets, daily range): BP systolic 101–123; BP diastolic 55–66; PULSE 114–126; RESP 16–20; TEMP 36.2–37.1; O2SAT 92–98; BMI 29.0
[2024-09-24 03:53] LABS: Absolute Lymphocyte Count 1.62 X10^3/uL (0.83-4.51); Absolute Neutrophil Count 3.7 X10^3/uL (2.0-7.7); Basophil# 0.02 X10^3/uL; Basophil% 0.3 % (0-1); Eosinophil# 0.33 X10^3/uL; Hematocrit 22.5 % (37-47); Hemoglobin 7.4 g/dL (12.0-15.0); Lymphocyte # 1.62 X10^3/ul (0.83-4.51); Lymphocyte % 24.7 % (19-41); Mean Corp Hgb Conc 32.9 g/dL (32-36); Mean Corpuscular Volume 97.4 fL (81-99); Mean Platelet Vol. 11.3 fl (6.2-12.0); Monocyte# 0.82 X10^3/uL; Monocyte% 12.5 % (0-10); NRBC Flagged by Analyzer 0 % (0-5); Neutrophil # 3.74 X10^3/uL (2.7-7.7); POSITIVE MORPHOLOGY YES; Platelet Count 118 K/mm3 (150-450); RBC Distribution Width CV 20.5 % (11.6-14.6); Red Blood Count 2.31 M/mm3 (4.2-5.4); White Blood Count 6.6 K/mm3 (4.4-11.0)
[2024-09-24 04:40] LABS: ALB/GLOB Ratio 0.8 RATIO (0.9-2.4); AST(SGOT) 36 U/L (<=31); Alanine Aminotransfer ALT/SGPT 18 U/L (<=34); Albumin, Serum 2.8 g/dL (3.4-4.8); Alkaline Phosphatase 123 U/L (35-104); Anion Gap 11 (5-15); BUN 14 mg/dL (4-19); BUN/Creat Ratio 18.1 RATIO (10-20); Calcium,Total 8.4 mg/dL (7.6-11.0); Carbon Dioxide 21.5 mmol/L (21.0-32.0); Chloride 108 mmol/L (98-108); Creatinine, Serum 0.75 mg/dL (0.70-1.20); EST Glomerular Filtration Rate 88 (>60); Estimated Creatinine Clearance 65.19 ml/min (50-250); Globulin 3.3 g/dL (2.2-4.2); Glucose 100 mg/dL (70-99); Potassium 3.5 mmol/L (3.3-5.1); Protein, Total 6.1 g/dL (5.9-8.4); Sodium Level 140 mmol/L (133-145); Total Bilirubin 1.68 mg/dL (0.00-1.30)
[2024-09-24 05:06] LABS: Differential Indicated SCAN CRITERIA MET
[2024-09-24 05:07] LABS: Anisocytosis 3+; Differential Comment SCANNED; Microcytosis 2+; Ovalocyte 1+; Polychromasia 1+; Target Cells 1+
--- NOTE | 2024-09-24 08:48 | CASEMGMT ---
Addendum entered by So Rainey 09/24/24 12:34: ARTUR POLLOCK to room to talk w/pt. She was made aware, per Rodolfo @ [facility], pt does have portable O2 tanks @ her home. Pt states she does recall getting them. She gave permission for ARTUR POLLOCK to call her friend, Sarah, to see if she can bring in portable tank to the hospital for her to dc home on. Call placed to Sarah, who verifies she has a [place] to get into pt's apt and she can go there today and sweet pickle maker the portable O2 tank. She will be coming in to see pt today and will bring them w/her and place in pt's room. She will text pt to inquire which O2 tank size to bring her and she is aware to bring the O2 regulator as well. Sarah states they were having issues w/pt's concentrator, stating they could not get the dial to go from 4 L/M to 2 L/M, but [employer] was @ pt's home yesterday when she (Sarah) was there and they serviced pt's concentrator. Sarah states she has transported pt in her vehicle in the past but states it has been about a year since doing so, as pt does have couple small steps to go up and she is not sure she can navigate them well. Sarah states, if possible for transportation to be arranged through pt's insurance, she would prefer that. She states if that cannot be done, or if insurance will not pay for it, she (Sarah) can would be willing to do it and would see if her could assist w/getting her in the home. Sarah voices no other concerns/needs. Green sheet placed on chart w/instructions to notify [facility] when pt is discharged & for O2. Home O2 testing also to be completed @ [facility]. If pt needs more than 2 L/M, will need updated O2 script faxed to [facility]. Jose KING RN, CM Original Note: ARTUR POLLOCK NOTE: Per Rodolfo @ [facility], pt was set up w/portable O2 tanks @ her home on 08/31/24, stating she received 4 B-tanks (size of wine bottle) and 2 E tanks. Will need to f/u with pt and friend, Sraah, to see if portable tank can be brought to [facility] for pt to dc home on. Jose BOWLINGN RN CM
--- NOTE | 2024-09-24 09:45 | CASEMGMT ---
Social Work SW met with pt to discuss Advance Directives. Pt stating she does not want to complete at this time but would like SW to return when her friend is present. VIJAY will attempt to meet with pt later today to complete AD. SHERRILL Zepeda
[2024-09-24] MEDS: Ceftriaxone 1 GM/50 ML BAG IV (10:30)
[2024-09-24] MEDS: Pantoprazole Sodium 40 MG in 0.9% Normal Saline (100mL MB+) 100 ML 330 MG IV ×2 (11:38→21:00)
--- NOTE | 2024-09-24 11:45 | CASEMGMT ---
ARTUR POLLOCK NOTE: Call received from Isabel @ [facility]. She states pt has a waiver program. She has a medical alert system, [employer]'s through [employer], approved for total of 12 hrs/week, and she receives monthly delivery of incontinent supplies from [email or web address]. Jose KING RN CM
--- NOTE | 2024-09-24 12:49 | PN_ITS ---
Subjective Subjective Patient seen and examined. She was lying comfortably in bed. She had no complaints. She denied any fever or chills, palpitations or dizziness, nausea vomiting or any other symptoms. Review of symptoms otherwise negative. She has not had any more vaginal bleeding. She does have a nasal rocket in her right nostril which she states was inserted by ENT surgeon 2 days ago. She was due for follow-up today and is wondering if she can get it removed as she was due to have it removed by ENT today. REview of systems is otherwise negative. Objective Data Objective Data Vital Signs: Vital Signs Temp Pulse Resp BP Pulse Ox O2 Del Method O2 Flow Rate 98.4 F 114 H 16 101/55 L 94 Room Air 2 09/24/24 10:09/24/24 10:09/24/24 10:27 09/24/24 10:09/24/24 10:09/24/24 10:09/23/24 16:13 Oxygen Flow Rate (L/min) 2 Oxygen Delivery Method Room Air Weight: 158 lb 15.253 oz Body Mass Index (BMI) 29.0 Intake & Output: Intake and Output for Last 24 Hours 09/22/24 09/23/24 09/24/24 23:59 23:59 23:59 Intake Total 1156.67 / 1156.67 869.17 / 869.17 Balance 1156.67 / 1156.67 869.17 / 869.17 Lab / Micro Data 09/24/24 03:01 09/24/24 03:01 Labs: Laboratory Results - last 24 hr 09/24/24 03:01: WBC 6.6, RBC 2.31 L, Hgb 7.4 L, Hct 22.5 L, MCV 97.4, MCH 32.0, MCHC 32.9, RDW Std Deviation 73.0 H, RDW Coeff of Laxmi 20.5 H, Plt Count 118 L, MPV 11.3, Immature Gran % (Auto) 0.500, Neut % (Auto) 57.0, Lymph % (Auto) 24.7, [place] % (Auto) 12.5 H, Eos % (Auto) 5.0, Baso % (Auto) 0.3, Absolute Neuts (auto) 3.7, Absolute Lymphs (auto) 1.62, Nucleated RBC % 0, Differential Comment SCANNED, Polychromasia 1+, Anisocytosis 3+, Microcytosis 2+, Target Cells 1+, Ovalocytes 1+, Sodium 140, Potassium 3.5, Chloride 108, Carbon Dioxide 21.5, Anion Gap 11, BUN 14, Creatinine 0.75, Estim Creat Clear Calc 65.19, Est GFR (MDRD) Non-Af 88, BUN/Creatinine Ratio 18.1, Glucose 100 H, Calcium 8.4, Total Bilirubin 1.68 H, AST 36 H, ALT 18, Alkaline Phosphatase 123 H, Total Protein 6.1, Albumin 2.8 L, Globulin 3.3, Albumin/Globulin Ratio 0.8 L Micro: Microbiology 09/22/24 22:52 Mucosa - Nose SARS-CoV-2, Influenza & RSV (PCR) - Final 09/22/24 23:42 Stool Stool Occult Blood (BRADLEY) - Final Occult Blood Positive Rhythm Strip Rhythm Strip: Sinus Rhythm Rate: 89 Ectopy: None Physical Exam Const alert, oriented x3 and no apparent distress General Appearance: cooperative HEENT normocephalic, head/scalp atraumatic and moist oral mucous membranes HEENT Narrative: nasal packing in right nostril Eyes PERRL and EOMs intact bilaterally Neck no lymphadenopathy and supple Lymph Lymphatic: no lymphadenopathy noted Resp normal respiratory effort, normal air movement and clear to auscultation bilaterally Cardio regular rate, regular rhythm, S1 normal heart sound, S2 normal heart sound and no murmurs GI normal to inspection, nondistended, normoactive bowel sounds, soft to palpation, non-tender and non-distended Extremity normal capillary refill and no clubbing, cyanosis or edema General Extremity: no tenderness to palpation of joints or extremities Skin General Skin Exam: no breakdown Neuro CN's II-XII intact bilaterally, no focal motor deficits and no sensory deficits noted Motor Exam: strength 5/5 throughout and general weakness Psych thought process normal and cooperative Appearance: appropriate Assessment & Plan Assessment/Plan (1) Guaiac positive stools: PLAN: Plan #Acute GI bleed * admitted with a complaint of melena stools * Hb today: * currently NPO. On IV pantoprazole infusion * Hb toady: * GI on board. For EGD today * #Symptomatic anemia * Patient admitted with a complaint of hypotension at home. She has a blood pressure was also low as the 60s systolic and when she went to the ED her blood pressure was 94/57. Hemoglobin was 8.9. Hemoglobin today is down to 7.4. It was 11.3 on September 15, 2024. * On midodrine on account of history of orthostatic hypotension. * Hydrated with fluids. Type and cross to transfuse to keep hemoglobin more than 7. * Is s/p transfusion of 2 units of packed red blood cells. #History of epistasis * Had epistasis about 3 days ago and had right nasal packing done in the ED. He was due to follow-up with Dr. Oscar today for removal. * I spoke to Dr. Ibrahim who is the ENT surgeon on-call. He stated that the packing should be left in for now as if it is removed at bedside and she starts bleeding there will be no alternate cause of management. He wants to be kept apprised of her hospital course to see if he will need to come in and get it removed. * Started on IV ceftriaxone as prophylaxis for toxic shock syndrome. Will add on doxycycline to also cover for staph aureus possibly causing toxic shock syndrome. #History of vaginal bleed: * Patient says she has had vaginal bleeding and was due to follow-up with gynecology. * She had a pelvic and transvaginal ultrasound during this admission which showed pelvic fluid but no acute findings. * To follow-up with gynecology on outpatient basis. * #History of cirrhosis: * Due to chronic alcohol abuse * on ursodiol and spironolactone. * INR was elevated at 1.7 on admission which is likely due to impaired synthetic liver function. Not on anticoagulation or antiplatelets. * #A-fib: On digoxin #Heart failure with preserved ejection fraction: Bumex metoprolol on hold due to low blood pressure #Depression and anxiety: On aripiprazole and buspirone DVT prophylaxis: SCDs. No anticoagulation on account of GI bleed. Charges/Coding Visit Charges Inpatient E&M: 11748 Subs Hosp L2
--- NOTE | 2024-09-24 14:59 | PCM.PRE.AN2 ---
ASA Classification* ASA Classification ASA Classification: 3 Assessment & Plan Anesthesia* Anesthesia Assessment Anesthesia Assessment: Discussed sedation and/or anesthesia options, risks, benefits, and alternatives with patient/parents/legal guardian/POA. Questions invited. The patient/parents/legal guardian/POA seems to understand and agrees to proceed with anesthesia plan. Reviewed the physical assessment, medical history, allergy history and patient home medications list prior to surgery/procedure/anesthetic and documented any changes. Performed airway and anesthesia risk assessments. Anesthesia Type Anesthesia Type: MAC Anesthesia Focused Assessment* Temperature: 98.1 F Pulse Rate: 121 Blood Pressure: 112/58 Respiratory Rate: 18 Pulse Ox: 94 Oxygen Flow Rate (L/min): 2 Airway Assessment Mouth opens: >3 cm Mallampati Score: II Focused Labs Anesthesia Preop lab: CBC WBC 6.6 K/mm3 (4.4-11.0) 09/24/24 03:01 09/24/24 RBC 2.31 M/mm3 (4.2-5.4) L 09/24/24 03:01 09/24/24 Hgb 7.4 g/dL (12.0-15.0) L 09/24/24 03:01 09/24/24 Hct 22.5 % (37-47) L 09/24/24 03:01 09/24/24 Plt Count 118 K/mm3 (150-450) L 09/24/24 03:01 09/24/24 CHEMISTRY Potassium 3.5 mmol/L (3.3-5.1) 09/24/24 03:01 09/24/24 Sodium 140 mmol/L (133-145) 09/24/24 03:01 09/24/24 Magnesium 1.6 mg/dL (1.5-2.2) 09/23/24 00:35 09/23/24 Phosphorus 3.7 mg/dL (2.7-4.5) 09/23/24 03:45 09/23/24 BUN 14 mg/dL (4-19) 09/24/24 03:01 09/24/24 Creatinine 0.75 mg/dL (0.70-1.20) 09/24/24 03:01 09/24/24 Glucose 100 mg/dL (70-99) H 09/24/24 03:01 09/24/24 POC Glucose 117 mg/dL (74-106) H 08/06/24 11:39 08/06/24 TSH 0.361 uIU/mL (0.300-4.200) 09/23/24 00:35 09/23/24 COAG PT 20.7 SECONDS (11.7-14.9) H 09/23/24 03:45 09/23/24 Pre-Assessment Diagnosis/Proposed Procedure Planned Operative Procedure(s): EGD Anesthesia History 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 04/15/22 09:22 Any Problems With Anesthesia No 09/24/24 10:32 Cholinesterase deficiency No 09/24/24 10:32 You/Your Family Experience No 09/24/24 10:32 fever (hyperthermia) with Relationship Recent Exposure to Contagious No 09/24/24 10:32 Disease Does patient have nerve No 09/24/24 10:32 stimulator Patient instructed to have device shut off --Does patient have Pacemaker No 09/24/24 10:32 or ICD? When Was Last Pacemaker Check QUESTION #4 FULL TEXT: You/Your Family Experience fever (hyperthermia) with Anesthesia Last Oral Intake Last Oral intake: Last Oral Intake NPO since 00:01 09/24/24 10:32 Meds taken in AM with sips of No 09/24/24 10:32 water? Meds patient instructed to take am of surgery PONV PONV - tennis professional: PONV - tennis professional Female HX of Motion Sickness HX of N/V After Surgery Non-Smoker Duration of Surgery greater than 60 minutes Number of Risk Factors PONV Score Height & Weight Height & Weight: Anesthesia: Height & Weight Height 5 ft 2 in 09/24/24 10:32 Weight: 72.1 kg 09/24/24 10:32 Body Mass Index (BMI) 29.0 09/24/24 10:32 Respiratory Assessment Respiratory Assessment - tennis professional: Respiratory Tract Infection Hx - tennis professional Hx Respiratory Tract Infection No 09/24/24 10:32 STOP Sleep Apnea STOP Sleep Apnea - tennis professional: STOP Sleep Apnea - tennis professional Hx Hypertension No 09/24/24 12:44 Hx Sleep Apnea No 09/23/24 03:11 CPAP No 06/09/24 18:33 BIPAP Do you snore loudly (louder No 09/23/24 03:11 than talking or can be heard Do you often feel tired/ No 09/23/24 03:11 fatigued/ sleepy during daytime? Has anyone observed you stop No 09/23/24 03:11 breathing during sleep? STOP Results Negative 09/23/24 03:11 QUESTION #5 FULL TEXT : Do you snore loudly (louder than talking or can be heard through closed doors)? Tobacco Use History Tobacco Use History - tennis professional: Tobacco Use History - tennis professional Tobacco Use Non-smoker 11/08/20 14:25 Smoking Status Former smoker 09/23/24 03:11 Hx Tobacco Use No 09/23/24 03:11 Years Smoking Packs Smoked per Day Smoking Cessation Date was Yes - quit smoking within 15 09/23/24 03:11 within the last 15 years years Hx Smoking Cessation Date 07/14/17 09/23/24 03:11 Hx Smoking Cessation No 09/23/24 03:11 Counseling Hematologic Medial History Hematologic Hx - tennis professional: Hematologic Medical Hx - documentation liaison Hx of Blood Transfusion No 09/23/24 03:11 Hx of Transfusion in last 3 No 09/23/24 03:11 Months Date of Last Transfusion (if within last 3 months) Ever experience any problems No 09/23/24 03:11 with transfusion(s)? Specify any problems Hx of Preganancy in last 3 No 09/23/24 03:11 Months Nurse Filling Out Transfusion AREAD 09/23/24 03:11 & Questions: Date: 09/23/24 09/23/24 03:11 Time: 03:35 09/23/24 03:11 Patient unable to answer at this time (ie. confused, unrespo /Reproduction History /Reproductive History - tennis professional: /Reproductive Hx- tennis professional Hx Now Gestational Age (in weeks): EDC: Hx Hx Para Hx Section SAB No 09/21/24 10:17 Active Medications Active Medications: Current Medications Generic Name Dose Route Start Last Admin Trade Name Freq PRN Reason Stop Dose Admin Albuterol Sulfate 2.5 mg 09/23/24 03:10 Albuterol 2.5 Mg/3 Ml Vial.Neb. INHALATION Q4H PRN PRN wheezing Doxycycline Monohydrate 100 mg 09/24/24 13:10 09/24/24 13:21 Doxycycline 100 Mg Capsule PO Not Given BID KEVIN Pantoprazole Sodium 40 mg/ 110 mls @ 330 mls/hr 09/23/24 10:00 09/24/24 13:20 Sodium Chloride IV Infused Q12 KEVIN Infusion Ceftriaxone Sodium 1 gm in 50 mls @ 100 mls/hr 09/23/24 10:00 09/24/24 11:38 Rocephin IV Infused Q24 KEVIN Infusion Sodium Chloride 100 mls @ 15 mls/hr 09/23/24 05:45 IV .Q6H40M PRN Saline Flush Sodium Chloride 100 mls @ 15 mls/hr 09/23/24 05:45 IV .Q6H40M PRN Additional IVPB Infusion Ondansetron HCl 4 mg 09/23/24 03:10 Ondansetron 4 Mg/2 Ml Vial IV Q8H PRN PRN NAUSEA/VOMITING Oxycodone HCl 10 mg 09/23/24 18:37 09/23/24 21:58 Oxycodone 5 Mg Tablet PO 10 mg Q6H PRN PRN Administration Pain Score 1-10 Promethazine HCl 25 mg 09/23/24 03:10 Promethazine 25 Mg/Ml Syringe IM Q6H PRN PRN Breakthrough Nausea/Vomiting Sodium Chloride 10 - 40 ml 09/23/24 05:45 0.9% Saline Lock 10 Ml Syringe IV UD PRN SALINE FLUSH PFSH Medical History Bipolar II disorder Alcohol use disorder, moderate, dependence Hypertension Alcoholic hepatitis Cirrhosis History of ascites History of cirrhosis Ileus Polycythemia Pressure sore on buttocks Alcohol abuse Generalized weakness Cystocele History of vertebral compression fracture Debility Venous thromboembolism (VTE) prophylaxis provided within 24 hours of arrival Vertebral compression fracture Intractable low back pain Abnormal CT of the chest Anxiety Chronic back pain Osteoporosis Arthritis Compression fracture of thoracic spine, non-traumatic Pancreatitis Urinary urgency Marijuana use Shortness of breath on exertion Leg cramps Seborrheic dermatitis Neck pain Bowel incontinence Urinary incontinence Alcoholic pancreatitis Scalp psoriasis Debility Wears contact lenses Anxiety Walker as ambulation aid Injury of head and neck Difficulty swallowing Non-smoker Pain at injection site Compression fracture Depression Alcohol use Osteoporosis Scoliosis Home Medications ?Medication ?Instructions ?Recorded ?Last Taken ?Type Lift Chair #1 ea 12/08/20 Unknown Rx diaper,brief,adult,disposable #200 ea 09/22/23 Unknown Rx (Adjustable Underwear) cholecalciferol (vitamin D3) 50 25 mcg PO DAILY supplement 12/29/23 09/21/24 07:56 History mcg (2,000 unit) capsule thiamine HCl (vitamin B1) 100 mg 100 mg PO DAILY #90 tabs 12/30/23 09/21/24 07:59 Rx tablet multivitamin (One Daily 1 tab PO DAILY #90 tabs 06/02/24 09/21/24 07:58 Rx Multivitamin tablet) aioorg-hfjlstvu-biydhqv 1 cap PO TID Pancreatic Enzyme 07/30/24 09/21/24 07:57 History 24,000-76,000-120,000 unit capsule,delayed rel (Creon) potassium chloride 20 mEq 20 meq PO BID SUPPLEMENT 07/30/24 09/22/24 07:58 History tablet,extended release spironolactone 25 mg tablet 25 mg PO DAILY Diuretic 08/05/24 08/26/24 History (Aldactone) Held on 09/15/24. Instructions: Patient refusing to take acetaminophen 325 mg tablet 650 mg (2 x 325 mg) PO Q4H PRN PRN 08/11/24 Unknown Rx Fever, pain -04/22 #0 tabs bumetanide 0.5 mg tablet 0.5 mg PO BID 30 days #0 tabs 08/30/24 08/26/24 Rx Held on 09/15/24. Instructions: Patient is refusing to take metoprolol tartrate 25 mg tablet 25 mg PO BID 30 days #0 tabs 08/30/24 Unknown Rx aripiprazole 10 mg tablet 10 mg PO DAILY #30 tabs 09/14/24 09/21/24 08:54 Rx buspirone 10 mg tablet 10 mg PO TID #90 tabs 09/14/24 09/21/24 20:55 Rx folic acid 1 mg tablet 1 mg PO BREAKFAST #90 tabs 09/15/24 09/21/24 07:56 Rx midodrine 5 mg tablet 5 mg PO TID #90 tabs 09/15/24 09/22/24 20:58 Rx digoxin 250 mcg (0.25 mg) tablet 250 mcg PO DAILY 30 days #30 tabs 09/20/24 09/22/24 08:56 Rx albuterol sulfate 90 mcg/actuation 2 puff inhalation Q4H PRN wheezing 09/21/24 09/22/24 17:54 History aerosol inhaler bisacodyl 5 mg tablet,delayed 20 mg (4 x 5 mg) PO ONCE #4 tabs 09/21/24 Unknown Rx release polyethylene glycol 3350 17 238 g PO ONCE #238 grams 09/21/24 Unknown Rx gram/dose oral powder ursodiol 250 mg tablet 250 mg PO BID 09/22/24 09/21/24 20:59 History amoxicillin 875 mg-potassium 1 tab PO BID 09/23/24 09/22/24 08:00 History clavulanate 125 mg tablet Allergy/AdvReac Type Severity Reaction Status Date / Time No Known Allergies Allergy Verified 09/22/24 22:06 Family History Mother Heart disease Osteoporosis Father Lung fibrosis Surgical History History of hip replacement S/P tubal ligation History of esophagogastroduodenoscopy (EGD) Hx of kyphoplasty History of back surgery History of wisdom tooth extraction Hx of total hip arthroplasty S/P kyphoplasty History of tubal ligation Social History household members: none housing: skilled nursing current occupational status: disabled Smoking Status: Former smoker Tobacco: How many years used: 2 Electronic Cigarette Use: not used how long ago did patient quit smoking: Smoked minimally age [age]. second hand exposure: No alcohol intake: former details: Sober since 06/04/24. substance use type: does not use what type of physical activity do you participate in: none seatbelt use: always do you feel safe at home: Yes additional social history: single Review of Systems (Anesthesia) ROS Narrative System reviewed and no additional complaints, except as documented.
--- NOTE | 2024-09-24 15:04 | EKG12_ITS ---
Test Reason : A FIB Blood Pressure : */* mmHG Vent. Rate : 125 BPM Atrial Rate : 125 BPM P-R Int : 138 ms QRS Dur : 78 ms QT Int : 320 ms P-R-T Axes : 44 58 264 degrees QTcB Int : 461 ms Sinus tachycardia with Premature atrial complexes ST & T wave abnormality, consider inferior ischemia ST & T wave abnormality, consider anterolateral ischemia Abnormal ECG When compared with ECG of 24-Sep-2024 15:33, MANUAL COMPARISON REQUIRED DATA IS UNCONFIRMED Confirmed by AIDAN THOMAS, JUSTIN ([id number]), mapping editor EDITH QUINTERO ([id number]) on 09/27/2024 1:43:05 PM Referred By: ZAYDA Confirmed By: JUSTIN BERMUDEZ MD
--- NOTE | 2024-09-24 15:14 | PN_ITS ---
Progress Note Patient with history of cirrhosis comes in with multiple episodes of black stools. Stools are guaiac positive. She has been n.p.o. for upper endoscopy today. Physical Exam Const alert, oriented x3 and no apparent distress General Appearance: cooperative HEENT normocephalic, head/scalp atraumatic and moist oral mucous membranes HEENT Narrative: nasal packing in right nostril Eyes PERRL and EOMs intact bilaterally Neck no lymphadenopathy and supple Lymph Lymphatic: no lymphadenopathy noted Resp normal respiratory effort, normal air movement and clear to auscultation bilaterally Cardio regular rate, regular rhythm, S1 normal heart sound, S2 normal heart sound and no murmurs GI normal to inspection, nondistended, normoactive bowel sounds, soft to palpation, non-tender and non-distended Extremity normal capillary refill and no clubbing, cyanosis or edema General Extremity: no tenderness to palpation of joints or extremities Skin General Skin Exam: no breakdown Neuro CN's II-XII intact bilaterally, no focal motor deficits and no sensory deficits noted Motor Exam: strength 5/5 throughout and general weakness Psych thought process normal and cooperative Appearance: appropriate Assessment & Plan Assessment/Plan (1) Guaiac positive stools: PLAN: Plan #Acute GI bleed * admitted with a complaint of melena stools * Hb today: * currently NPO. On IV pantoprazole infusion * Hb toady: * For EGD today * #Symptomatic anemia * Patient admitted with a complaint of hypotension at home. She has a blood pressure was also low as the 60s systolic and when she went to the ED her blood pressure was 94/57. Hemoglobin was 8.9. Hemoglobin today is down to 7.4. It was 11.3 on September 15, 2024. * On midodrine on account of history of orthostatic hypotension. * Hydrated with fluids. Type and cross to transfuse to keep hemoglobin more than 7. * Is s/p transfusion of 2 units of packed red blood cells. Visit Charges Inpatient E&M: 00862 [facility] Hosp L3
--- NOTE | 2024-09-24 15:35 | CASEMGMT ---
Social Work SW attempted to meet with pt to complete Advance Directives. Pt out of the room at a procedure at this time. SHERRILL Joshua
[2024-09-24] MEDS: 0.9% Normal Saline (1000mL) 1,000 ML 500 ML IV (15:50)
[2024-09-24 16:13] LABS: Hemoglobin 7.5 g/dL (12.0-15.0); Mean Corp Hgb Conc 32.6 g/dL (32-36); Mean Corpuscular Hgb 31.5 pg (27.0-32.0); Mean Corpuscular Volume 96.6 fL (81-99); Mean Platelet Vol. 11.5 fl (6.2-12.0); Platelet Count 123 K/mm3 (150-450); RBC Distribution Width CV 20.6 % (11.6-14.6); RBC Distribution Width SD 71.7 fl (35.1-43.9); Red Blood Count 2.38 M/mm3 (4.2-5.4)
[2024-09-24 16:28] LABS: Scan Indicated on CBC? Y/N YES- FLAGS NOTED
--- NOTE | 2024-09-24 16:59 | EKGRS_ITS ---
Test Reason : PRE OP Blood Pressure : */* mmHG Vent. Rate : 114 BPM Atrial Rate : 114 BPM P-R Int : 118 ms QRS Dur : 76 ms QT Int : 338 ms P-R-T Axes : 11 60 245 degrees QTcB Int : 465 ms Sinus tachycardia with Premature atrial complexes ST & T wave abnormality, consider inferior ischemia ST & T wave abnormality, consider anterolateral ischemia Abnormal ECG When compared with ECG of 22-Sep-2024 23:03, MANUAL COMPARISON REQUIRED DATA IS UNCONFIRMED Confirmed by AIDAN THOMAS, JUSTIN ([id number]), news videotape editor EDITH QUINTERO ([id number]) on 09/27/2024 1:43:15 PM Referred By: SHAHID Confirmed By: JUSTIN BERMUDEZ MD
--- NOTE | 2024-09-24 17:02 | PCM.POST.ANE ---
Anesthesia: Postop Eval I Current Vital Signs Temperature: 97.2 F Pulse Rate: 126 Blood Pressure: 123/66 Respiratory Rate: 20 Pulse Ox: 98 Oxygen Delivery Method: Room Air Assessment Airway patent: Yes Spontaneous unlabored respirations: Yes Mental status: Awake and Calm nausea: No Vomiting: No Anesthesia Complication: No Fluid Hydration Crystalloid volume administer (ml): 0 Total IV fluid infused: 0 Progress Note Post-operative progress note: case [id number] due to new radha graves Anesthesia document: Postop Eval 1 completed: Yes
[2024-09-24 17:31] LABS: POSITIVE MORPHOLOGY YES
--- NOTE | 2024-09-24 18:26 | OP.CCLET_ITS ---
09/24/2024 Edward Mc MD [address] [place] [address] [place] [address] Re : Upper GI endoscopy procedure for Salima Sigg Dear Dr. Mc This procedure was performed on Tuesday, September 24, 2024. My impressions and recommendations are as follows: Impressions : - Grade II esophageal varices. - No specimens collected. Recommendations : - Return patient to [facility] for ongoing care. - Full liquid diet. - Continue present medications. - The procedure was stopped because the patient went into atrial fibrillation with RVR My findings are described in the full procedure note, which is enclosed. If I can be of further assistance, please feel free to contact me at . Sincerely, Dwayne Thompson, 09/24/2024 6:26:03 PM This report has been signed electronically.
--- NOTE | 2024-09-24 18:26 | OP.EGD_ITS ---
Patient Name: Salima Whitney Procedure Date: 09/24/2024 4:43 PM Date of : 1960 Age: 64 Procedure: Upper GI endoscopy Indications: Acute post hemorrhagic anemia, Iron deficiency anemia Providers: Dwayne Thompson DO Medicines: Monitored Anesthesia Care Patient Profile: This is a 64 year old female. Refer to note in patient chart for documentation of history and physical. Patient has symptoms of acute abdominal distention and acute nausea. Complications: No immediate complications. Procedure: Pre-Anesthesia Assessment: - Prior to the procedure, a History and Physical was performed, and patient medications and allergies were reviewed. The patient is competent. The risks and benefits of the procedure and the sedation options and risks were discussed with the patient. All questions were answered and informed consent was obtained. Patient identification and proposed procedure were verified by the physician in the pre-procedure area. Mental Status Examination: alert and oriented. Airway Examination: normal oropharyngeal airway and neck mobility. Respiratory Examination: clear to auscultation. CV Examination: normal. ASA Grade Assessment: IV - A patient with severe systemic disease that is a constant threat to life. After reviewing the risks and benefits, the patient was deemed in satisfactory condition to undergo the procedure. The anesthesia plan was to use monitored anesthesia care (MAC). Immediately prior to administration of medications, the patient was re-assessed for adequacy to receive sedatives. The heart rate, respiratory rate, oxygen saturations, blood pressure, adequacy of pulmonary ventilation, and response to care were monitored throughout the procedure. The physical status of the patient was re-assessed after the procedure. After obtaining informed consent, the endoscope was passed under direct vision. Throughout the procedure, the patient's blood pressure, pulse, and oxygen saturations were monitored continuously. The procedure was aborted. The scope was not inserted. Medications were given. The upper GI endoscopy was accomplished without difficulty. The patient tolerated the procedure well. Scope In: Scope Out: Findings: Grade II varices were found in the middle third of the esophagus and in the lower third of the esophagus. They were 5 mm in largest diameter. An examination of the stomach was not performed. An examination of the duodenum was not performed. Impression: - Grade II esophageal varices. - No specimens collected. Recommendation: - Return patient to [facility] for ongoing care. - Full liquid diet. - Continue present medications. - The procedure was stopped because the patient went into atrial fibrillation with RVR Dwayne Thompson, 09/24/2024 6:26:03 PM This report has been signed electronically. Number of Addenda: 0 Note Initiated On: 09/24/2024 4:43 PM
[2024-09-24] MEDS: Digoxin 250 MCG Tablet PO (18:44)
--- NOTE | 2024-09-24 19:10 | POSTOPAN2_ITS ---
Anesthesia Postop Eval I Sum Postop Eval Completion status Anesthesia document: Postop Eval 1 completed: Yes Anesthesia Postop Eval I Summary Anesthesia Postop Eval I Summary: Anesthesia Postop Eval I: Assessment Summary Airway patent Yes 09/24/24 17:03 HAND [email or web address] Spontaneous unlabored Yes 09/24/24 17:03 HAND [email or web address] respirations Mental status Awake,Calm 09/24/24 17:03 HAND [email or web address] nausea No 09/24/24 17:03 HAND DRAWER [email or web address] Vomiting No 09/24/24 17:03 HAND [email or web address] [email or web address] Anesthesia Postop Eval I: Fluid Summary Crystalloid volume administer 0 09/24/24 17:03 HAND [email or web address] (ml) Colloids volume administered ( ml) Blood Product volume administered (ml) Total IV fluid infused 0 09/24/24 17:03 HAND [email or web address] [email or web address] Anesthesia Postop Eval I: Summary Notes Anesthesia Complication No 09/24/24 17:03 HAND [email or web address] [email or web address] Anesthesia Complication Comment: Post-operative progress note case [id number] 09/24/24 17:03 HAND [email or web address] due to new onsert a fib Anesthesia: Postop Eval II Evaluation Mental status: Awake Pain Level: 0 nausea: No Vomiting: No
--- NOTE | 2024-09-24 19:10 | PCM.POSTANE2 ---
Anesthesia Postop Eval I Sum Postop Eval Completion status Anesthesia document: Postop Eval 1 completed: Yes Anesthesia Postop Eval I Summary Anesthesia Postop Eval I Summary: Anesthesia Postop Eval I: Assessment Summary Airway patent Yes 09/24/24 17:03 PAINT LINE [email or web address] Spontaneous unlabored Yes 09/24/24 17:03 PAINT LINE [email or web address] respirations Mental status Awake,Calm 09/24/24 17:03 PAINT [email or web address] nausea No 09/24/24 17:03 PAINT LINE [email or web address] Vomiting No 09/24/24 17:03 PAINT LINE [email or web address] Anesthesia Postop Eval I: Fluid Summary Crystalloid volume administer 0 09/24/24 17:03 PAINT LINE [email or web address] (ml) Colloids volume administered ( ml) Blood Product volume administered (ml) Total IV fluid infused 0 09/24/24 17:03 PAINT LINE [email or web address] Anesthesia Postop Eval I: Summary Notes Anesthesia Complication No 09/24/24 17:03 PAINT LINE [email or web address] Anesthesia Complication Comment: Post-operative progress note case [id number] 09/24/24 17:03 PAINT LINE [email or web address] due to new onsert a fib Anesthesia: Postop Eval II Evaluation Mental status: Awake Pain Level: 0 nausea: No Vomiting: No
[2024-09-24] MEDS: Metoprolol Tartrate 25 MG Tablet PO (21:00)
[2024-09-24] MEDS: 0.9% Normal Saline (1000mL) 1,000 ML 100 ML IV (21:00)
[2024-09-24] MEDS: oxyCODONE 5 MG Tablet 10 MG PO (21:30)
[2024-09-24] MEDS: Doxycycline 100 MG CAPSULE PO (22:32)
[2024-09-24] MEDS: Midodrine HCl 5 MG Tablet PO (22:32)
[2024-09-24] MEDS: Ursodiol 250 MG Tablet PO (22:32)
[2024-09-25 03:13] VITALS: BP 107/65; PULSE 87; RESP 16; TEMP 36.7; O2SAT 93
[2024-09-25 04:42] VITALS: BMI 31.0
[2024-09-25 06:08] LABS: Absolute Lymphocyte Count 1.46 X10^3/uL (0.83-4.51); Basophil# 0.02 X10^3/uL; Basophil% 0.4 % (0-1); Eosinophils% 5.5 % (0-5); Hematocrit 22.4 % (37-47); Hemoglobin 7.4 g/dL (12.0-15.0); Lymphocyte # 1.46 X10^3/ul (0.83-4.51); Lymphocyte % 26.6 % (19-41); Mean Corpuscular Hgb 31.9 pg (27.0-32.0); Mean Corpuscular Volume 96.6 fL (81-99); Mean Platelet Vol. 11.5 fl (6.2-12.0); Monocyte# 0.68 X10^3/uL; Monocyte% 12.4 % (0-10); NRBC Flagged by Analyzer 0 % (0-5); Neutrophil % 54.7 % (47-70); POSITIVE MORPHOLOGY YES; Platelet Count 126 K/mm3 (150-450); RBC Distribution Width CV 20.5 % (11.6-14.6); Red Blood Count 2.32 M/mm3 (4.2-5.4); White Blood Count 5.5 K/mm3 (4.4-11.0)
[2024-09-25 06:13] LABS: Differential Indicated SCAN CRITERIA MET
[2024-09-25] MEDS: Midodrine HCl 5 MG Tablet PO ×3 (06:28→21:40)
[2024-09-25] MEDS: oxyCODONE 5 MG Tablet 10 MG PO ×2 (06:28→13:35)
[2024-09-25 07:29] LABS: Anion Gap 10 (5-15); BUN 7 mg/dL (4-19); BUN/Creat Ratio 11.3 RATIO (10-20); Chloride 107 mmol/L (98-108); Creatinine, Serum 0.61 mg/dL (0.70-1.20); EST Glomerular Filtration Rate 99 (>60); Estimated Creatinine Clearance 67.36 ml/min (50-250); Glucose 95 mg/dL (70-99); Potassium 3.5 mmol/L (3.3-5.1); Sodium Level 137 mmol/L (133-145)
[2024-09-25 08:49] VITALS: BP 126/65; PULSE 96; RESP 18; TEMP 36.3; O2SAT 92
[2024-09-25 08:57] LABS: Acanthocytes 1+; Anisocytosis 1+; Macrocytosis 1+; Ovalocyte 1+; Platelet Estimate SLT DEC (ADEQ); Polychromasia 1+
[2024-09-25] MEDS: Doxycycline 100 MG CAPSULE PO ×2 (09:14→21:40)
[2024-09-25 09:15] VITALS: BP 126/65; PULSE 96
[2024-09-25] MEDS: Metoprolol Tartrate 25 MG Tablet PO ×2 (09:15→21:40)
[2024-09-25] MEDS: Ursodiol 250 MG Tablet PO ×2 (09:16→21:40)
[2024-09-25] MEDS: Digoxin 250 MCG Tablet PO (09:18)
[2024-09-25] MEDS: Pantoprazole Sodium 40 MG in 0.9% Normal Saline (100mL MB+) 100 ML 330 MG IV ×2 (09:21→21:40)
[2024-09-25] MEDS: Ceftriaxone 1 GM/50 ML BAG IV (10:56)
--- NOTE | 2024-09-25 12:06 | EKG12_ITS ---
Test Reason : NEW ONSET AFIB Blood Pressure : */* mmHG Vent. Rate : 86 BPM Atrial Rate : 86 BPM P-R Int : 132 ms QRS Dur : 78 ms QT Int : 340 ms P-R-T Axes : -1 39 245 degrees QTcB Int : 406 ms Normal sinus rhythm with sinus arrhythmia Low voltage QRS ST & T wave abnormality, consider inferior ischemia ST & T wave abnormality, consider anterolateral ischemia Abnormal ECG When compared with ECG of 24-Sep-2024 17:04, MANUAL COMPARISON REQUIRED DATA IS UNCONFIRMED Confirmed by AIDAN THOMAS, JUSTIN ([id number]), commercial production editor EDITH QUINTERO ([id number]) on 09/27/2024 9:54:50 AM Referred By: Confirmed By: JUSTIN BERMUDEZ MD
--- NOTE | 2024-09-25 12:58 | PN_ITS ---
Subjective Subjective Patient seen and examined. She had no active complaints. Review of systems is otherwise negative. She did not have the EGD yesterday as she went into afib with RVR. Her metoprolol and digoxin were resumed and she felt much better. Objective Data Objective Data Vital Signs: Vital Signs Temp Pulse Resp BP Pulse Ox O2 Del Method O2 Flow Rate 97.4 F L 96 18 126/65 H 92 Room Air 2 09/25/24 08:49 09/25/24 09:15 09/25/24 08:49 09/25/24 09:15 09/25/24 08:49 09/25/24 08:49 09/24/24 14:59 Oxygen Flow Rate (L/min) 2 Oxygen Delivery Method Room Air Weight: 169 lb 12.095 oz Body Mass Index (BMI) 31.0 Intake & Output: Intake and Output for Last 24 Hours 09/23/24 09/24/24 09/25/24 23:59 23:59 23:59 Intake Total 1156.67 / 1156.67 1889.17 / 2689.17 2079 Balance 1156.67 / 1156.67 1889.17 / 2689.17 2079 Lab / Micro Data 09/25/24 05:50 09/25/24 05:50 Labs: Laboratory Results - last 24 hr 09/24/24 15:45: WBC 6.0, RBC 2.38 L, Hgb 7.5 L, Hct 23.0 L, MCV 96.6, MCH 31.5, MCHC 32.6, RDW Std Deviation 71.7 H, RDW Coeff of Laxmi 20.6 H, Plt Count 123 L, MPV 11.5 09/25/24 05:50: WBC 5.5, RBC 2.32 L, Hgb 7.4 L, Hct 22.4 L, MCV 96.6, MCH 31.9, MCHC 33.0, RDW Std Deviation 72.0 H, RDW Coeff of Laxmi 20.5 H, Plt Count 126 L, MPV 11.5, Immature Gran % (Auto) 0.400, Neut % (Auto) 54.7, Lymph % (Auto) 26.6, [place] % (Auto) 12.4 H, Eos % (Auto) 5.5 H, Baso % (Auto) 0.4, Absolute Neuts (auto) 3.0, Absolute Lymphs (auto) 1.46, Nucleated RBC % 0, Platelet Estimate SLT DEC, Polychromasia 1+, Anisocytosis 1+, Macrocytosis 1+, Ovalocytes 1+, Acanthocytes (Spur) 1+, Sodium 137, Potassium 3.5, Chloride 107, Carbon Dioxide 20.0 L, Anion Gap 10, BUN 7, Creatinine 0.61 L, Estim Creat Clear Calc 67.36, Est GFR (MDRD) Non-Af 99, BUN/Creatinine Ratio 11.3, Glucose 95, Calcium 8.0 Micro: Microbiology 09/22/24 22:52 Mucosa - Nose SARS-CoV-2, Influenza & RSV (PCR) - Final 09/22/24 23:42 Stool Stool Occult Blood ([facility]ADLEY) - Final Occult Blood Positive Rhythm Strip Rhythm Strip: Sinus Rhythm Rate: 89 Ectopy: None Physical Exam Const alert, oriented x3 and no apparent distress Constitutional Narrative: Patient is chronically ill appearance. General Appearance: cooperative HEENT normocephalic, head/scalp atraumatic, hearing grossly normal bilaterally and moist oral mucous membranes HEENT Narrative: nasal packing in right nostril. Eyes PERRL and EOMs intact bilaterally Neck no lymphadenopathy and supple Lymph Lymphatic: no lymphadenopathy noted Resp normal respiratory effort, normal air movement, no retractions, no use of accessory muscles and clear to auscultation bilaterally Cardio regular rate, regular rhythm, S1 normal heart sound, S2 normal heart sound and no murmurs GI GI Narrative: Distended abdomen with ascites fluid wave present. Mild suprapubic tenderness to palpation noted. Melena noted on exam confirmed by guaiac positive stool. Extremity normal to inspection, full ROM, normal capillary refill and no clubbing, cyanosis or edema General Extremity: no tenderness to palpation of joints or extremities Skin Skin Narrative: Patient has no evidence of rash, abscess, wounds or jaundice. General Skin Exam: no breakdown Neuro oriented x3, CN's II-XII intact bilaterally, moves all extremities, no focal motor deficits and no sensory deficits noted Sensorium / Orientation: awake, alert, oriented to person, oriented to place and oriented to time Speech: speech normal Motor Exam: strength 5/5 throughout and general weakness Psych thought process normal and cooperative Appearance: appropriate Assessment & Plan Assessment/Plan (1) Guaiac positive stools: PLAN: Plan #Acute GI bleed * admitted with a complaint of melena stools * Hb today is 7.4. * currently NPO. On IV pantoprazole infusion * GI on board. * EGD yesterday showed grade II esophageal varices; procedure was aborted as patient went in to afib with RVR. * * #Symptomatic anemia * Patient admitted with a complaint of hypotension at home. She has a blood pressure was also low as the 60s systolic and when she went to the ED her blood pressure was 94/57. Hemoglobin was 8.9. Hemoglobin today is down to 7.4. It was 11.3 on September 15, 2024. * On midodrine on account of history of orthostatic hypotension. * Hydrated with fluids. Type and cross to transfuse to keep hemoglobin more than 7. * Is s/p transfusion of 2 units of packed red blood cells. * hb today is 7.4 #History of epistaxis * Had epistasis about 3 days ago and had right nasal packing done in the ED. He was due to follow-up with Dr. Oscar today for removal. * I spoke to Dr. Frederick who is the ENT surgeon on-call. He stated that the packing should be left in for now as if it is removed at bedside and she starts bleeding there will be no alternate cause of management. He wants to be kept apprised of her hospital course to see if he will need to come in and get it removed. * on IV ceftriaxone and PO doxycycline * I spoke to Dr Frederick again today; her discussion, it is ok to keep the nasal packing in situ till Friday, when patient will likely be discharged. Patient to follow up with Dr Frederick on Friday09/27/2024 in the office for removal of the nasal packing. * * Started on IV ceftriaxone as prophylaxis for toxic shock syndrome. Will add on doxycycline to also cover for staph aureus possibly causing toxic shock syndrome. #History of vaginal bleed: * Patient says she has had vaginal bleeding and was due to follow-up with gynecology. * She had a pelvic and transvaginal ultrasound during this admission which showed pelvic fluid but no acute findings. * To follow-up with gynecology on outpatient basis. * #History of cirrhosis: * Due to chronic alcohol abuse * on ursodiol and spironolactone. * INR was elevated at 1.7 on admission which is likely due to impaired synthetic liver function. Not on anticoagulation or antiplatelets. * patient has ascites. Will order thoracentesis for Friday. * #A-fib: * went into afib with RVR yesterday during EGD. * On metoprolol and digoxin which have been resumed. * HR is better controlled. #Heart failure with preserved ejection fraction: metoprolol resumed o/a of afib with RVR. BUmex still on hold due to low BP. #Depression and anxiety: On aripiprazole and buspirone DVT prophylaxis: SCDs. No anticoagulation on account of GI bleed. Charges/Coding Visit Charges Inpatient E&M: 27332 Subs Hosp L2
--- NOTE | 2024-09-25 13:08 | PCM.CONS.C ---
Assessment & Plan Assessment/Plan (1) Atrial fibrillation: QUALIFIERS: Atrial fibrillation type: paroxysmal Qualified Code(s): I48.0 - Paroxysmal atrial fibrillation PLAN: Currently rate controlled. Not on anticoagulation due to GI bleed. Continue present management. Patient can follow-up with us as an outpatient. We will sign off at this time. Please let us know if we can be of any further assistance. HPI Consult Data Date of Consult: 09/25/24 HPI Narrative Reason for Consultation: Atrial fibrillation HPI Narrative: PRASHANT MAZARIEGOS, is a 64 F with multiple medical issues including cirrhosis, elevated INR, GI bleed, epistaxis. Cardiology consult was requested for atrial fibrillation. Patient has history of paroxysmal atrial fibrillation. When she presented to the hospital she appears to be in sinus rhythm. She then went into A-fib with RVR. Currently her heart rate is controlled. She is not on anticoagulation because of GI bleed, liver disease. [facility] Medical History Bipolar II disorder Alcohol use disorder, moderate, dependence Hypertension Alcoholic hepatitis Cirrhosis History of ascites History of cirrhosis Ileus Polycythemia Pressure sore on buttocks Alcohol abuse Generalized weakness Cystocele History of vertebral compression fracture Debility Venous thromboembolism (VTE) prophylaxis provided within 24 hours of arrival Vertebral compression fracture Intractable low back pain Abnormal CT of the chest Anxiety Chronic back pain Osteoporosis Arthritis Compression fracture of thoracic spine, non-traumatic Pancreatitis Urinary urgency Marijuana use Shortness of breath on exertion Leg cramps Seborrheic dermatitis Neck pain Bowel incontinence Urinary incontinence Alcoholic pancreatitis Scalp psoriasis Debility Wears contact lenses Anxiety Walker as ambulation aid Injury of head and neck Difficulty swallowing Non-smoker Pain at injection site Compression fracture Depression Alcohol use Osteoporosis Scoliosis Home Medications ?Medication ?Instructions ?Recorded ?Last Taken ?Type Lift Chair #1 ea 12/08/20 Unknown Rx diaper,brief,adult,disposable #200 ea 09/22/23 Unknown Rx (Adjustable Underwear) cholecalciferol (vitamin D3) 50 25 mcg PO DAILY supplement 12/29/23 09/21/24 07:56 History mcg (2,000 unit) capsule thiamine HCl (vitamin B1) 100 mg 100 mg PO DAILY #90 tabs 12/30/23 09/21/24 07:59 Rx tablet multivitamin (One Daily 1 tab PO DAILY #90 tabs 06/02/24 09/21/24 07:58 Rx Multivitamin tablet) hzhlyu-[id number] 1 cap PO TID Pancreatic Enzyme 07/30/24 09/21/24 07:57 History 24,000-76,000-120,000 unit capsule,delayed rel (Creon) potassium chloride 20 mEq 20 meq PO BID SUPPLEMENT 07/30/24 09/22/24 07:58 History tablet,extended release spironolactone 25 mg tablet 25 mg PO DAILY Diuretic 08/05/24 08/26/24 History (Aldactone) Held on 09/15/24. Instructions: Patient refusing to take acetaminophen 325 mg tablet 650 mg (2 x 325 mg) PO Q4H PRN PRN 08/11/24 Unknown Rx Fever, pain -04/22 #0 tabs bumetanide 0.5 mg tablet 0.5 mg PO BID 30 days #0 tabs 08/30/24 08/26/24 Rx Held on 09/15/24. Instructions: Patient is refusing to take metoprolol tartrate 25 mg tablet 25 mg PO BID 30 days #0 tabs 08/30/24 Unknown Rx aripiprazole 10 mg tablet 10 mg PO DAILY #30 tabs 09/14/24 09/21/24 08:54 Rx buspirone 10 mg tablet 10 mg PO TID #90 tabs 09/14/24 09/21/24 20:55 Rx folic acid 1 mg tablet 1 mg PO BREAKFAST #90 tabs 09/15/24 09/21/24 07:56 Rx midodrine 5 mg tablet 5 mg PO TID #90 tabs 09/15/24 09/22/24 20:58 Rx digoxin 250 mcg (0.25 mg) tablet 250 mcg PO DAILY 30 days #30 tabs 09/20/24 09/22/24 08:56 Rx albuterol sulfate 90 mcg/actuation 2 puff inhalation Q4H PRN wheezing 09/21/24 09/22/24 17:54 History aerosol inhaler bisacodyl 5 mg tablet,delayed 20 mg (4 x 5 mg) PO ONCE #4 tabs 09/21/24 Unknown Rx release polyethylene glycol 3350 17 238 g PO ONCE #238 grams 09/21/24 Unknown Rx gram/dose oral powder ursodiol 250 mg tablet 250 mg PO BID 09/22/24 09/21/24 20:59 History amoxicillin 875 mg-potassium 1 tab PO BID 09/23/24 09/22/24 08:00 History clavulanate 125 mg tablet Allergy/AdvReac Type Severity Reaction Status Date / Time No Known Allergies Allergy Verified 09/22/24 22:06 Family History Mother Heart disease Osteoporosis Father Lung fibrosis Surgical History History of hip replacement S/P tubal ligation History of esophagogastroduodenoscopy (EGD) Hx of kyphoplasty History of back surgery History of wisdom tooth extraction Hx of total hip arthroplasty S/P kyphoplasty History of tubal ligation Social History household members: none housing: long-term current occupational status: disabled Smoking Status: Former smoker Tobacco: How many years used: 2 Electronic Cigarette Use: not used how long ago did patient quit smoking: Smoked minimally age [age]. second hand exposure: No alcohol intake: former details: Sober since 06/04/24. substance use type: does not use what type of physical activity do you participate in: none seatbelt use: always do you feel safe at home: Yes additional social history: single Physical Exam Const alert and oriented x3 HEENT normocephalic Resp normal respiratory effort Cardio regular rate Extremity no pedal edema Risk Stratification Risk Stratification Applicable: No Charges/Coding Visit Charges Inpatient E&M: 20949 Init Hosp L1 Objective Data Vital Signs: Vital Signs Temp Pulse Resp BP Pulse Ox O2 Del Method O2 Flow Rate 97.4 F L 96 18 126/65 H 92 Room Air 2 09/25/24 08:49 09/25/24 09:15 09/25/24 08:49 09/25/24 09:15 09/25/24 08:49 09/25/24 08:49 09/24/24 14:59 Oxygen Flow Rate (L/min) 2 Oxygen Delivery Method Room Air Weight: 169 lb 12.095 oz Body Mass Index (BMI) 31.0 Intake & Output: Intake and Output for Last 24 Hours 09/23/24 09/24/24 09/25/24 23:59 23:59 23:59 Intake Total 1156.67 / 1156.67 1889.17 / 2689.17 2079 Balance 1156.67 / 1156.67 1889.17 / 9.17 2079 Lab / Micro Data 09/25/24 05:50 09/25/24 05:50 Labs: Laboratory Results - last 24 hr 09/24/24 15:45: WBC 6.0, RBC 2.38 L, Hgb 7.5 L, Hct 23.0 L, MCV 96.6, MCH 31.5, MCHC 32.6, RDW Std Deviation 71.7 H, RDW Coeff of Laxmi 20.6 H, Plt Count 123 L, MPV 11.5 09/25/24 05:50: WBC 5.5, RBC 2.32 L, Hgb 7.4 L, Hct 22.4 L, MCV 96.6, MCH 31.9, MCHC 33.0, RDW Std Deviation 72.0 H, RDW Coeff of Laxmi 20.5 H, Plt Count 126 L, MPV 11.5, Immature Gran % (Auto) 0.400, Neut % (Auto) 54.7, Lymph % (Auto) 26.6, [place] % (Auto) 12.4 H, Eos % (Auto) 5.5 H, Baso % (Auto) 0.4, Absolute Neuts (auto) 3.0, Absolute Lymphs (auto) 1.46, Nucleated RBC % 0, Platelet Estimate SLT DEC, Polychromasia 1+, Anisocytosis 1+, Macrocytosis 1+, Ovalocytes 1+, Acanthocytes (Spur) 1+, Sodium 137, Potassium 3.5, Chloride 107, Carbon Dioxide 20.0 L, Anion Gap 10, BUN 7, Creatinine 0.61 L, Estim Creat Clear Calc 67.36, Est GFR (MDRD) Non-Af 99, BUN/Creatinine Ratio 11.3, Glucose 95, Calcium 8.0 Rhythm Strip Rhythm Strip: Sinus Rhythm Rate: 89 Ectopy: None Cardiology Labs/Tests 09/24/24 15:45: WBC 6.0, RBC 2.38 L, Hgb 7.5 L, Hct 23.0 L, MCV 96.6, MCH 31.5, MCHC 32.6, Plt Count 123 L, MPV 11.5 09/25/24 05:50: WBC 5.5, RBC 2.32 L, Hgb 7.4 L, Hct 22.4 L, MCV 96.6, MCH 31.9, MCHC 33.0, Plt Count 126 L, MPV 11.5, Immature Gran % (Auto) 0.400, Neut % (Auto) 54.7, Lymph % (Auto) 26.6, [place] % (Auto) 12.4 H, Eos % (Auto) 5.5 H, Baso % (Auto) 0.4, Absolute Neuts (auto) 3.0, Nucleated RBC % 0, Sodium 137, Potassium 3.5, Chloride 107, Carbon Dioxide 20.0 L, Anion Gap 10, BUN 7, Creatinine 0.61 L, Est GFR (MDRD) Non-Af 99, BUN/Creatinine Ratio 11.3, Glucose 95, Calcium 8.0 Rhythm: EKG: ECHO: Stress Test: Cardiac Cath: PCI: CT Surgery: Holter monitor: EPS: PPM: CXR: Chest CT Scan:
[2024-09-25 14:50] VITALS: BP 107/66; PULSE 85; RESP 18; TEMP 36.3; O2SAT 92
[2024-09-25 21:38] VITALS: BP 110/67; PULSE 91; RESP 18; TEMP 36.6; O2SAT 96
[2024-09-25 21:40] VITALS: BP 110/67; PULSE 91
[2024-09-26 03:35] VITALS: BP 112/76; PULSE 87; RESP 20; TEMP 36.6; O2SAT 94
[2024-09-26 03:42] VITALS: BMI 30.7
[2024-09-26 04:20] LABS: Absolute Lymphocyte Count 1.62 X10^3/uL (0.83-4.51); Absolute Neutrophil Count 3.1 X10^3/uL (2.0-7.7); Basophil# 0.02 X10^3/uL; Basophil% 0.3 % (0-1); Eosinophil# 0.37 X10^3/uL; Eosinophils% 6.3 % (0-5); Hemoglobin 8.3 g/dL (12.0-15.0); Lymphocyte # 1.62 X10^3/ul (0.83-4.51); Lymphocyte % 27.6 % (19-41); Mean Corp Hgb Conc 33.2 g/dL (32-36); Mean Corpuscular Hgb 31.8 pg (27.0-32.0); Mean Corpuscular Volume 95.8 fL (81-99); Mean Platelet Vol. 10.6 fl (6.2-12.0); Monocyte# 0.72 X10^3/uL; Monocyte% 12.3 % (0-10); NRBC Flagged by Analyzer 0 % (0-5); Neutrophil # 3.12 X10^3/uL (2.7-7.7); Neutrophil % 53.2 % (47-70); POSITIVE MORPHOLOGY YES; Platelet Count 145 K/mm3 (150-450); RBC Distribution Width SD 69.5 fl (35.1-43.9); Red Blood Count 2.61 M/mm3 (4.2-5.4); White Blood Count 5.9 K/mm3 (4.4-11.0)
[2024-09-26 04:42] LABS: Differential Indicated SCAN CRITERIA MET
[2024-09-26 05:00] LABS: Anion Gap 10 (5-15); BUN 4 mg/dL (4-19); BUN/Creat Ratio 6.2 RATIO (10-20); Calcium,Total 8.2 mg/dL (7.6-11.0); Carbon Dioxide 20.9 mmol/L (21.0-32.0); Chloride 105 mmol/L (98-108); Creatinine, Serum 0.66 mg/dL (0.70-1.20); EST Glomerular Filtration Rate 97 (>60); Estimated Creatinine Clearance 67.05 ml/min (50-250); Glucose 101 mg/dL (70-99); Potassium 3.6 mmol/L (3.3-5.1); Sodium Level 135 mmol/L (133-145)
[2024-09-26 05:18] LABS: Anisocytosis 2+; Differential Comment SCANNED; Hypochromasia 1+; Platelet Estimate SLT DEC (ADEQ); Polychromasia 1+
[2024-09-26 05:19] LABS: Target Cells RARE
[2024-09-26] MEDS: Midodrine HCl 5 MG Tablet PO ×3 (05:35→21:32)
[2024-09-26] MEDS: oxyCODONE 5 MG Tablet 10 MG PO ×2 (05:37→14:54)
[2024-09-26] MEDS: Ceftriaxone 1 GM/50 ML BAG IV (10:09)
[2024-09-26] MEDS: Doxycycline 100 MG CAPSULE PO ×2 (10:12→21:33)
[2024-09-26] MEDS: Ursodiol 250 MG Tablet PO ×2 (10:13→21:33)
[2024-09-26] MEDS: Digoxin 250 MCG Tablet PO (10:13)
[2024-09-26 10:15] VITALS: BP 100/66; PULSE 89
[2024-09-26] MEDS: Metoprolol Tartrate 25 MG Tablet PO ×2 (10:15→21:33)
[2024-09-26 10:17] VITALS: BP 100/66; PULSE 89; RESP 20; TEMP 36.4; O2SAT 93
--- NOTE | 2024-09-26 10:39 | PN_ITS ---
Subjective Subjective Patient seen and examined. She had no complaints. Review of systems is otherwise negative. She is for paracentesis tomorrow. Objective Data Objective Data Vital Signs: Vital Signs Temp Pulse Resp BP Pulse Ox O2 Del Method O2 Flow Rate 97.6 F L 89 20 H 100/66 93 Room Air 2 09/26/24 10:17 09/26/24 10:17 09/26/24 10:17 09/26/24 10:17 09/26/24 10:17 09/26/24 10:17 09/24/24 14:59 Oxygen Flow Rate (L/min) 2 Oxygen Delivery Method Room Air Weight: 168 lb 3.403 oz Body Mass Index (BMI) 30.7 Intake & Output: Intake and Output for Last 24 Hours 09/24/24 09/25/24 09/26/24 23:59 23:59 23:59 Intake Total 1889.17 / 2689.17 2190 / 2190 Output Total 2 / 2 Balance 1889.17 / 2689.17 2190 / 2190 -2 / -2 Lab / Micro Data 09/26/24 04:10 09/26/24 04:10 Labs: Laboratory Results - last 24 hr 09/23/24 00:35: Crossmatch See Detail 09/26/24 04:10: WBC 5.9, RBC 2.61 L, Hgb 8.3 L, Hct 25.0 L, MCV 95.8, MCH 31.8, MCHC 33.2, RDW Std Deviation 69.5 H, RDW Coeff of Laxmi 20.0 H, Plt Count 145 L, MPV 10.6, Immature Gran % (Auto) 0.300, Neut % (Auto) 53.2, Lymph % (Auto) 27.6, Hartley % (Auto) 12.3 H, Eos % (Auto) 6.3 H, Baso % (Auto) 0.3, Absolute Neuts (auto) 3.1, Absolute Lymphs (auto) 1.62, Nucleated RBC % 0, Differential Comment SCANNED, Platelet Estimate SLT DEC, Polychromasia 1+, Hypochromasia 1+, Anisocytosis 2+, Target Cells RARE, Sodium 135, Potassium 3.6, Chloride 105, C arbon Dioxide 20.9 L, Anion Gap 10, BUN 4, Creatinine 0.66 L, Estim Creat Clear Calc 67.05, Est GFR (MDRD) Non-Af 97, BUN/Creatinine Ratio 6.2 L, Glucose 101 H, Calcium 8.2 Micro: Microbiology 09/22/24 22:52 Mucosa - Nose SARS-CoV-2, Influenza & RSV (PCR) - Final 09/22/24 23:42 Stool Stool Occult Blood (BRADLEY) - Final Occult Blood Positive Rhythm Strip Rhythm Strip: Sinus Rhythm Rate: 89 Ectopy: None Physical Exam Const alert, oriented x3, no apparent distress and average body habitus General Appearance: cooperative HEENT normocephalic, head/scalp atraumatic, hearing grossly normal bilaterally and moist oral mucous membranes Eyes PERRL and EOMs intact bilaterally Neck no lymphadenopathy and supple Lymph Lymphatic: no lymphadenopathy noted Resp normal respiratory effort, normal air movement, no retractions, no use of accessory muscles and clear to auscultation bilaterally Cardio regular rate, regular rhythm, S1 normal heart sound, S2 normal heart sound and no murmurs GI normal to inspection, nondistended, normoactive bowel sounds and soft to palpation GI Narrative: Distended abdomen with ascites fluid wave present. Mild suprapubic tenderness to palpation noted. Melena noted on exam confirmed by guaiac positive stool. Extremity normal to inspection, full ROM, normal capillary refill and no clubbing, cyanosis or edema General Extremity: no tenderness to palpation of joints or extremities Skin General Skin Exam: no breakdown Neuro oriented x3, CN's II-XII intact bilaterally, moves all extremities, no focal motor deficits and no sensory deficits noted Sensorium / Orientation: awake, alert, oriented to person, oriented to place and oriented to time Speech: speech normal Motor Exam: strength 5/5 throughout and general weakness Psych thought process normal and cooperative Appearance: appropriate Mood & Affect: anxious Assessment & Plan Assessment/Plan (1) Guaiac positive stools: PLAN: Plan #Acute GI bleed * admitted with a complaint of melena stools * Hb today is 8.3. * now on a diet. * GI on board. * EGD showed grade II esophageal varices; procedure was aborted as patient went in to afib with RVR. * Per discussion with Dr Thompson, he does not think he needs to repeat the EGD. * #Symptomatic anemia * Patient admitted with a complaint of hypotension at home. She has a blood pressure was also low as the 60s systolic and when she went to the ED her blood pressure was 94/57. Hemoglobin was 8.9. Hemoglobin today is down to 7.4. It was 11.3 on September 15, 2024. * On midodrine on account of history of orthostatic hypotension. * Hydrated with fluids. Type and cross to transfuse to keep hemoglobin more than 7. * Is s/p transfusion of 2 units of packed red blood cells. * hb today is 8.3. #History of epistaxis * Had epistasis about 3 days prior to admission and had right nasal packing done in the ED. She was due to follow-up with Dr. Oscar today for removal. * I spoke to Dr. Frederick who is the ENT surgeon on-call. He stated that the packing should be left in for now as if it is removed at bedside and she starts bleeding there will be no alternate cause of management. He wants to be kept apprised of her hospital course to see if he will need to come in and get it removed. * on IV ceftriaxone and PO doxycycline * I spoke to Dr Frederick again yesterday; her discussion, it is ok to keep the nasal packing in situ till Friday, when patient will likely be discharged. Patient to follow up with Dr Frederick on Friday09/27/2024 in the office for removal of the nasal packing. * Plan remains for patient to follow up with Dr Frederick in the office tomorrow after discharge. * on IV ceftriaxone and PO doxycycline for prophylaxis for toxic shock syndrome. WIll switch IV ceftriaxone to PO augmentin. * #History of vaginal bleed: * Patient says she has had vaginal bleeding and was due to follow-up with gynecology. * She had a pelvic and transvaginal ultrasound during this admission which showed pelvic fluid but no acute findings. * To follow-up with gynecology on outpatient basis. * #History of cirrhosis: * Due to chronic alcohol abuse * on ursodiol and spironolactone. * INR was elevated at 1.7 on admission which is likely due to impaired synthetic liver function. Not on anticoagulation or antiplatelets. * patient has ascites. Will order thoracentesis for Friday. * #A-fib: * on metoprolol and digoxin. * not anticoagulated likely due to history of vaginal bleed. * On metoprolol and digoxin which have been resumed. * #Heart failure with preserved ejection fraction: * metoprolol resumed o/a of afib with RVR. * BUmex still on hold due to low BP. #Depression and anxiety: On aripiprazole and buspirone DVT prophylaxis: SCDs. No anticoagulation on account of GI bleed. Charges/Coding Visit Charges Inpatient E&M: 42081 Subs Hosp L2
[2024-09-26] MEDS: Pantoprazole Sodium 40 MG in 0.9% Normal Saline (100mL MB+) 100 ML 330 MG IV ×2 (11:01→21:37)
[2024-09-26 16:14] VITALS: BP 100/64; PULSE 82; RESP 18; TEMP 36.7; O2SAT 92
[2024-09-26 21:25] VITALS: BP 101/64; PULSE 87; RESP 20; TEMP 36.8; O2SAT 95
[2024-09-26 21:33] VITALS: BP 101/64; PULSE 87
[2024-09-26] MEDS: Amox/Clavulanate 875 MG Tablet PO (21:33)
[2024-09-27] VITALS (9 sets, daily range): BP systolic 94–116; BP diastolic 46–72; PULSE 82–94; RESP 18–20; TEMP 36.3–36.6; O2SAT 93–97; BMI 31.1
[2024-09-27] MEDS: oxyCODONE 5 MG Tablet 10 MG PO ×2 (01:02→08:34)
[2024-09-27 01:44] LABS: Amphetamine Urine NEGATIVE (<1000 ng/mL); Barbiturate Urine NEGATIVE (< 200 ng/mL); Benzodiazepine Urine NEGATIVE (< 200 ng/mL); Buprenorphine Urine NEGATIVE (< 200 ng/mL); Cocaine Urine NEGATIVE (< 300 ng/mL); Fentanyl, Urine NEGATIVE; Methadone Urine NEGATIVE (< 300 ng/mL); Opiates Urine NEGATIVE (< 300 ng/mL); Oxycodone, Urine PRESUMTIVE POSITIVE (< 100 ng/mL); PCP Urine NEGATIVE (< 25 ng/mL); THC Urine NEGATIVE (< 50 ng/mL)
[2024-09-27 04:49] LABS: Absolute Lymphocyte Count 1.28 X10^3/uL (0.83-4.51); Basophil# 0.02 X10^3/uL; Basophil% 0.4 % (0-1); Eosinophil# 0.34 X10^3/uL; Eosinophils% 6.5 % (0-5); Hematocrit 24.4 % (37-47); Lymphocyte # 1.28 X10^3/ul (0.83-4.51); Lymphocyte % 24.6 % (19-41); Mean Corp Hgb Conc 32.8 g/dL (32-36); Mean Corpuscular Hgb 31.7 pg (27.0-32.0); Mean Corpuscular Volume 96.8 fL (81-99); Mean Platelet Vol. 11.3 fl (6.2-12.0); Monocyte# 0.55 X10^3/uL; Monocyte% 10.6 % (0-10); NRBC Flagged by Analyzer 0 % (0-5); Neutrophil % 57.5 % (47-70); POSITIVE MORPHOLOGY YES; Platelet Count 150 K/mm3 (150-450); RBC Distribution Width CV 19.7 % (11.6-14.6); RBC Distribution Width SD 69.3 fl (35.1-43.9); Red Blood Count 2.52 M/mm3 (4.2-5.4); White Blood Count 5.2 K/mm3 (4.4-11.0)
[2024-09-27 04:58] LABS: Differential Indicated SCAN CRITERIA MET
[2024-09-27 05:11] LABS: Anion Gap 9 (5-15); BUN 4 mg/dL (4-19); BUN/Creat Ratio 6.1 RATIO (10-20); Calcium,Total 8.2 mg/dL (7.6-11.0); Carbon Dioxide 23.2 mmol/L (21.0-32.0); Chloride 105 mmol/L (98-108); Creatinine, Serum 0.62 mg/dL (0.70-1.20); EST Glomerular Filtration Rate 99 (>60); Estimated Creatinine Clearance 67.45 ml/min (50-250); Glucose 102 mg/dL (70-99); Potassium 3.3 mmol/L (3.3-5.1); Sodium Level 137 mmol/L (133-145)
[2024-09-27] MEDS: Midodrine HCl 5 MG Tablet PO ×2 (05:27→14:11)
[2024-09-27 05:53] LABS: Anisocytosis 1+
--- NOTE | 2024-09-27 07:00 | US_ITS ---
PROCEDURE: PARACENTESIS WITH US REASON FOR EXAM: PARACENTESIS TECHNIQUE: Ultrasound imaging of abdomen demonstrates ascites.. The procedure as well as the benefits and possible complications including bleeding and infection were explained to the patient. Informed consent was obtained. The right lower quadrant was prepped and draped in the usual sterile fashion. Following local anesthetic application, puncture of the abdominal wall was performed with a 5 Austrian catheter. A paracentesis was then performed. Free fluid was aspirated. COMPARISON: None. FINDINGS: 1650 mL of yung colored fluid was aspirated. The patient tolerated the procedure well. US/Paracentesis with US IMPRESSION: Successful ultrasound-guided right paracentesis with removal of 1650 mL of ambe r colored fluid. [facility]
[2024-09-27] MEDS: Amox/Clavulanate 875 MG Tablet PO (08:26)
[2024-09-27] MEDS: Digoxin 250 MCG Tablet PO (08:26)
[2024-09-27] MEDS: Doxycycline 100 MG CAPSULE PO (08:26)
[2024-09-27] MEDS: Metoprolol Tartrate 25 MG Tablet PO (08:26)
[2024-09-27] MEDS: Ursodiol 250 MG Tablet PO (08:27)
[2024-09-27] MEDS: Pantoprazole Sodium 40 MG in 0.9% Normal Saline (100mL MB+) 100 ML 330 MG IV (08:36)
[2024-09-27] MEDS: Lidocaine 2% (20 ml mdv) 20 ML Vial INFILT (13:40)
--- NOTE | 2024-09-27 14:36 | DS.PCM_ITS ---
Providers Date of Admission: 09/23/24 Date of Discharge: 09/27/24 Primary Care Physician: Dr. Edward Mc MD Consultations 09/23/24 03:10 Consult: Gastroenterology Routine Consulting Provider: [facility] Reason for Consult: Melena with history of Cirrhosis and recent epistaxis. EMERGENT Consult: No Notified: Yes Date Notified: 09/23/24 Time Notified: 05:53 Method of Notification: Answering Service 09/24/24 20:14 Consult: Cardiology Routine Consulting Provider: Khurram Severino Reason for Consult: New onset Afib RVR EMERGENT Consult: No Notified: Yes Date Notified: 09/25/24 Time Notified: 06:52 Method of Notification: Text Reason For Visit: SYMPTOMATIC HYPOTENSION, RECENT EPISTAXIS, MELENA, Diagnosis Discharge Diagnosis (1) Guaiac positive stools: Status: Acute Code(s): R19.5 - Other fecal abnormalities Plan #Acute GI bleed * admitted with a complaint of melena stools * Hb today is 8.3. * now on a diet. * GI on board. * EGD showed grade II esophageal varices; procedure was aborted as patient went in to afib with RVR. * Per discussion with Dr Thompson, he does not think he needs to repeat the EGD. * #Symptomatic anemia * Patient admitted with a complaint of hypotension at home. She has a blood pressure was also low as the 60s systolic and when she went to the ED her blood pressure was 94/57. Hemoglobin was 8.9. Hemoglobin today is down to 7.4. It was 11.3 on September 15, 2024. * On midodrine on account of history of orthostatic hypotension. * Hydrated with fluids. Type and cross to transfuse to keep hemoglobin more than 7. * Is s/p transfusion of 2 units of packed red blood cells. * hb today is 8.3. #History of epistaxis * Had epistasis about 3 days prior to admission and had right nasal packing done in the ED. She was due to follow-up with Dr. Oscar today for removal. * I spoke to Dr. Frederick who is the ENT surgeon on-call. He stated that the packing should be left in for now as if it is removed at bedside and she starts bleeding there will be no alternate cause of management. He wants to be kept apprised of her hospital course to see if he will need to come in and get it removed. * on IV ceftriaxone and PO doxycycline * I spoke to Dr Frederick again yesterday; her discussion, it is ok to keep the nasal packing in situ till Friday, when patient will likely be discharged. Patient to follow up with Dr Frederick on Friday09/27/2024 in the office for removal of the nasal packing. * Plan remains for patient to follow up with Dr Frederick in the office tomorrow after discharge. * on IV ceftriaxone and PO doxycycline for prophylaxis for toxic shock syndrome. WIll switch IV ceftriaxone to PO augmentin. * #History of vaginal bleed: * Patient says she has had vaginal bleeding and was due to follow-up with gynecology. * She had a pelvic and transvaginal ultrasound during this admission which showed pelvic fluid but no acute findings. * To follow-up with gynecology on outpatient basis. * #History of cirrhosis: * Due to chronic alcohol abuse * on ursodiol and spironolactone. * INR was elevated at 1.7 on admission which is likely due to impaired synthetic liver function. Not on anticoagulation or antiplatelets. * patient has ascites. Will order thoracentesis for Friday. * #A-fib: * on metoprolol and digoxin. * not anticoagulated likely due to history of vaginal bleed. * On metoprolol and digoxin which have been resumed. * #Heart failure with preserved ejection fraction: * metoprolol resumed o/a of afib with RVR. * BUmex still on hold due to low BP. #Depression and anxiety: On aripiprazole and buspirone DVT prophylaxis: SCDs. No anticoagulation on account of GI bleed. Medications at Discharge Home Medications Lift Chair #1 ea 12/08/20 diaper,brief,adult,disposable (Adjustable Underwear) #200 ea 09/22/23 cholecalciferol (vitamin D3) 50 mcg (2,000 unit) capsule 25 mcg PO DAILY supplement 12/29/23 thiamine HCl (vitamin B1) 100 mg tablet 100 mg PO DAILY #90 tabs 12/30/23 multivitamin (One Daily Multivitamin tablet) 1 tab PO DAILY #90 tabs 06/02/24 wlkpki-rqpugtty-yxrtmml 24,000-76,000-120,000 unit capsule,delayed rel (Creon) 1 cap PO TID Pancreatic Enzyme 07/30/24 potassium chloride 20 mEq tablet,extended release 20 meq PO BID SUPPLEMENT 07/30/24 spironolactone 25 mg tablet (Aldactone) 25 mg PO DAILY Diuretic 08/05/24 acetaminophen 325 mg tablet 650 mg (2 x 325 mg) PO Q4H PRN PRN Fever, pain 1- 04/22 #0 tabs 08/11/24 bumetanide 0.5 mg tablet 0.5 mg PO BID 30 days #0 tabs 08/30/24 metoprolol tartrate 25 mg tablet 25 mg PO BID 30 days #0 tabs 08/30/24 aripiprazole 10 mg tablet 10 mg PO DAILY #30 tabs 09/14/24 buspirone 10 mg tablet 10 mg PO TID #90 tabs 09/14/24 folic acid 1 mg tablet 1 mg PO BREAKFAST #90 tabs 09/15/24 midodrine 5 mg tablet 5 mg PO TID #90 tabs 09/15/24 digoxin 250 mcg (0.25 mg) tablet 250 mcg PO DAILY 30 days #30 tabs 09/20/24 albuterol sulfate 90 mcg/actuation aerosol inhaler 2 puff inhalation Q4H PRN wheezing 09/21/24 bisacodyl 5 mg tablet,delayed release 20 mg (4 x 5 mg) PO ONCE #4 tabs 09/21/24 polyethylene glycol 3350 17 gram/dose oral powder 238 g PO ONCE #238 grams 09/21/24 ursodiol 250 mg tablet 250 mg PO BID 09/22/24 amoxicillin 875 mg-potassium clavulanate 125 mg tablet 1 tab PO BID #10 tabs 09/27/24 pantoprazole 40 mg tablet,delayed release 40 mg PO DAILY #30 tabs 09/27/24 Hospital Course Operations None Procedures EGD Summary of Care Provided Minutes Spent on Discharge: 45 Hospital Course: Patient is a 64-year-old female with an extensive past medical history as outlined which includes alcoholic liver cirrhosis was admitted with a complaint of low blood pressure, chest pain and vaginal bleeding as well as recent epistasis. Symptoms are started the day prior to admission when she had severe epistasis and came to the ED the day before admission. She had a right nasal packing inserted. She was discharged home but approximately an hour prior to arrival for this and this admission she started to feel lightheaded and dizzy. She checked her blood pressure which was low at around 60/40 mmHg. He says she became very anxious about her blood pressure and then developed chest pain which was substernal and pressure-like and rated at 5 out of 10. She therefore came into the ED. She was on midodrine chronically for hypotension. She had also been having intermittent bright red blood per rectum as well as vaginal bleeding. The vaginal bleeding was not new and she was scheduled to have cervical biopsy on September 27, 2024. She also complained of worsening abdominal distention with indigestion for several days prior to admission and show she was due for repeat paracentesis. In the ED she was still hypotensive and her blood pressure was down at 94/57. Hemoglobin was 8.9 and INR was 1.7. Of note her hemoglobin on September 15, 2024 had been 11.3. Stool for occult blood was positive and CT of the abdomen and pelvis showed evidence of possible bleeding in the fourth portion of the duodenum. She did have melena stool balls in the ED also. She was admitted to be managed for hypotension due to probable GI bleed in the setting of chronic liver cirrhosis. Gastroenterology was consulted. She was also transfused 2 units of packed red blood cells. She had a pelvic and transvaginal ultrasound which showed some pelvic fluid but no active bleeding. She was started on IV ceftriaxone and doxycycline subsequently added on as prophylaxis for toxic shock syndrome in light of her having the right nasal packing. The epistasis did not recur during this admission. I did speak to ENT who recommended that the nasal packing be kept in place until patient could follow-up with them within at least a week on outpatient basis for the nasal packing to be removed. The concern was it was removed in the hospital and patient bled again will be no recourse to stop the bleeding. Gastroenterology was consulted and patient had EGD which showed grade 2 esophageal varices. The procedure was stopped because patient went into A-fib with RVR. The A-fib with RVR subsequently resolved after her metoprolol and digoxin were resumed. This had been held on account of the hypotension on admission. Cardiology was also consulted and recommended continuing the present management. She was not anticoagulated due to the GI bleed and vaginal bleeding. She had paracentesis done on 09/27/2024 with removal of 1.65 L of fluid. This was a therapeutic procedure as she did have known cirrhosis and there were no concerns for SBP. She was discharged home on 09/27/2024 after she received 25 g of albumin after the paracentesis. She is to follow-up with her primary care doctor, gastroenterology and the ENT surgeon and also follow-up with cardiology on outpatient basis. Patient seen and examined prior to discharge. Patient felt well and had no complaints. He had had an uneventful night. Review of systems otherwise negative. Labs and vitals reviewed. Home medication reviewed and reconciled. She was given a prescription for p.o. Augmentin for 1 week to continue with the prophylaxis for toxic shock syndrome whilst the nasal packing was in situ. Patient was to follow-up with ENT surgeon right after discharge on 09/27/2024 to be evaluated for the nasal packing to be removed. Physical Exam Const alert, oriented x3, no apparent distress and average body habitus Constitutional Narrative: Patient is chronically ill appearance. General Appearance: cooperative and comfortable Orientation / Consciousness: awake Exam Limitations: no limitations HEENT normocephalic, head/scalp atraumatic, hearing grossly normal bilaterally and moist oral mucous membranes Mouth: oral and palatal mucosa normal Eyes PERRL and EOMs intact bilaterally Neck no lymphadenopathy and supple Lymph Lymphatic: no lymphadenopathy noted Resp normal respiratory effort, normal air movement, no retractions, no use of accessory muscles and clear to auscultation bilaterally Cardio regular rate, regular rhythm, S1 normal heart sound, S2 normal heart sound and no murmurs GI non-tender GI Narrative: Distended abdomen with ascites fluid wave present. Extremity normal to inspection, full ROM, normal capillary refill and no clubbing, cyanosis or edema General Extremity: no tenderness to palpation of joints or extremities Skin no rashes or lesions noted General Skin Exam: no breakdown Neuro oriented x3, CN's II-XII intact bilaterally, moves all extremities, no focal motor deficits and no sensory deficits noted Sensorium / Orientation: awake, alert, oriented to person, oriented to place and oriented to time Speech: speech normal Motor Exam: strength 5/5 throughout and general weakness Psych thought process normal and cooperative Appearance: appropriate Weight / BMI Weight Weight: 170 lb 3.15 oz Body Mass Index (BMI) 31.1 ABG / Lab / Microbiology Data 09/27/24 03:33 09/27/24 03:33 Laboratory: Laboratory Results - last 24 hr 09/27/24 01:05: Urine Opiates Screen NEGATIVE, U Buprenorphine Qual NEGATIVE, Ur Oxycodone Screen PRESUMTIVE POSITIVE, Urine Methadone Screen NEGATIVE, Urine Fentanyl Screen NEGATIVE, Ur Barbiturates Screen NEGATIVE, Ur Phencyclidine Scrn NEGATIVE, Ur Amphetamines Screen NEGATIVE, U Benzodiazepines Scrn NEGATIVE, Urine Cocaine Screen NEGATIVE, U Cannabinoids Screen NEGATIVE 09/27/24 03:33: WBC 5.2, RBC 2.52 L, Hgb 8.0 L, Hct 24.4 L, MCV 96.8, MCH 31.7, MCHC 32.8, RDW Std Deviation 69.3 H, RDW Coeff of Laxmi 19.7 H, Plt Count 150, MPV 11.3, Immature Gran % (Auto) 0.400, Neut % (Auto) 57.5, Lymph % (Auto) 24.6, M sandrita % (Auto) 10.6 H, Eos % (Auto) 6.5 H, Baso % (Auto) 0.4, Absolute Neuts (auto) 3.0, Absolute Lymphs (auto) 1.28, Nucleated RBC % 0, Anisocytosis 1+, Sodium 137, Potassium 3.3, Chloride 105, Carbon Dioxide 23.2, Anion Gap 9, BUN 4, Creatinine 0.62 L, Estim Creat Clear Calc 67.45, Est GFR (MDRD) Non-Af 99, B UN/Creatinine Ratio 6.1 L, Glucose 102 H, Calcium 8.2 Microbiology: Microbiology 09/22/24 22:52 Mucosa - Nose SARS-CoV-2, Influenza & RSV (PCR) - Final 09/22/24 23:42 Stool Stool Occult Blood (BRADLEY) - Final Occult Blood Positive D/C Instructions Discharge Diet: Low fat / Low cholesterol Discharge Activity: Return to Normal Activity Weight Bearing Status: Weight bearing as tolerated Call your doctor if you observe: Fever of 101 or Higher, Shortness of breath, Dizziness, Swelling in the ankles and Chest pain DC O2, CPAP, BIPAP Needs Home O2 Discharge instructions: No DC home with Oxygen: No Meaningful Use Info Meaningful Use Meaningful Use Diagnoses (Choose all that apply): None applicable Ischemic Stroke Statin Dosing Therapy Reference: STATIN DOSE THERAPY REFERENCE: * Patients > 75 years receive moderate or high dose statin therapy. * Patients 75 years or YOUNGER should receive HIGH intensity statin dose unless contraindicated. You will be required to document reason for non-treatment if statin daily dose does not meet guidelines. HIGH DOSE STATIN THERAPY DAILY Atorvastatin > than or = to 40 mg Rosuvastatin > than or = to 20 mg Amlodipine + Atorvastatin > than or = to 2.5/40 mg Ezetimibe + Simvastatin 10/80 mg Simvastatin 80mg Discharge Plan Admission Admit Date/Time: 09/23/24 02:29 Primary Reason for Your Visit: GI bleed, cirrhosis with ascites Attending Provider: Eliane Finley Primary Care Provider: Edward Mc Consulting Providers: Miguel Silva; Marcell Richard; Khurram Severino Instructions Patient Instructions: GI Bleeding Ch Discharge Orders/Prescriptions Prescriptions: New pantoprazole 40 mg tablet,delayed release (DR/EC) 40 mg PO DAILY Qty: 30 2RF amoxicillin-pot clavulanate 875-125 mg tablet 1 tab PO BID Qty: 10 0RF Continued (DME) Adjustable Underwear Misc See Rx Instructions .ROUTE .MEDSUPPLY Qty: 200 3RF Rx Instructions: As directed. Large cholecalciferol (vitamin D3) 50 mcg (2,000 unit) capsule 25 mcg PO DAILY buspirone 10 mg tablet 10 mg PO TID Qty: 90 5RF aripiprazole 10 mg tablet 10 mg PO DAILY Qty: 30 5RF Creon 24,000-76,000 -120,000 unit capsule,delayed release(DR/EC) 1 cap PO TID Rx Instructions: administer with meals and/or snacks potassium chloride 20 mEq tablet extended release 20 meq PO BID folic acid 1 mg tablet 1 mg PO BREAKFAST Qty: 90 1RF midodrine 5 mg tablet 5 mg PO TID Qty: 90 0RF spironolactone [Aldactone] 25 mg tablet 25 mg PO DAILY acetaminophen 325 mg Tablet 650 mg PO Q4H PRN PRN (Reason: Fever, pain 1-04/22) Qty: 0 0RF albuterol sulfate 90 mcg/actuation HFA aerosol inhaler 2 puff INHALATION Q4H PRN (Reason: wheezing) ursodiol 250 mg tablet 250 mg PO BID metoprolol tartrate 25 mg Tablet 25 mg PO BID 30 Days Qty: 0 0RF bumetanide 0.5 mg Tablet 0.5 mg PO BID 30 Days Qty: 0 0RF (DME) Lift Chair See Rx Instructions .Route .MEDSUPPLY Qty: 1 0RF Rx Instructions: As directed thiamine HCl (vitamin B1) 100 mg tablet 100 mg PO DAILY Qty: 90 3RF multivitamin [One Daily Multivitamin] Tablet 1 tab PO DAILY Qty: 90 1RF digoxin 250 mcg (0.25 mg) tablet 250 mcg PO DAILY 30 Days Qty: 30 0RF bisacodyl 5 mg tablet,delayed release (DR/EC) 20 mg PO ONCE Qty: 4 0RF Patient Comments: scope 09/30/2024, has not started yet Rx Instructions: colonoscopy prep polyethylene glycol 3350 17 gram/dose powder 238 g PO ONCE Qty: 238 0RF Patient Comments: scope 09/30/2024; has not used yet Rx Instructions: Mix into 64oz of clear liquid for colonoscopy prep Discontinued amoxicillin-pot clavulanate 875-125 mg tablet 1 tab PO BID Referrals / Follow Up: Armin Frederick MD [Med Staff - Active Staff] - 09/27/24 4:00 pm Edward Mc MD [Primary Care Provider] - Within 1 Week Dwayne Thompson DO [Med Staff - Active Staff] - Within 1 Week Rodney Dave MD [Med Staff - Active Staff] - Within 2 Weeks (see to establish care for afib) Disposition Disposition (needs filled in before D/C Order can be placed): Home Health Service Charges/Coding Visit Charges Inpatient E&M: 23719 Disch Hosp >30min
--- NOTE | 2024-09-27 14:52 | CASEMGMT ---
RN CM noted DC orders. Sent DC summary via careport to N, called and left a VM to let them know Pt is discharging today and confirm receipt of DC paperwork.
--- NOTE | 2024-09-27 14:56 | CHAPLAIN ---
Type of Pastoral Visit _x__ Initial Visit ___ Follow-up Visit ___ On-call Visit ___ General Patient Visit ___ Spiritual Assessment ___ Family Conference ___ Bereavement ___ Rapid Response ___ Code Blue ___ Other (describe below) Pastoral Care Referral From _x__ Patient ___ Family ___ Nurse ___ Physician ___ Rotary Helper ___ Lead Qa Analyst ___ Other (describe below) Sacrament/Intervention _x__ Active listening ___ Anointing ___ Presybeterian ___ Bereavement ___ Communion ___ Kayla exploration ___ ___ Life review ___ Prayer ___ Reconciliation ___ Sacrament of Sick _x__ Supportive presence ___ Wedding ___ Other (describe below) Pastoral Comments patient has been seen numerous times and she asks questions of this rehab aide about his life and work; pt believes that she will be discharged today and is hopeful for that; pt engages in conversation about her apartment and returning there;
[2024-09-27] MEDS: Albumin Human 25% (100 mL) 25 GM/100 ML BAG IV (15:14)
--- NOTE | 2024-09-27 15:48 | PHA.DC_ITS ---
Pharmacy [facility] has performed discharge medication reconciliation and counseling for this patient. 1. PANTOPRAZOLE 40MG PO DAILY The patient's discharge medication list was reviewed for discrepancies and discrepancies were resolved. The patient was counseled on the following discharge medications and changes in medications for homegoing were reviewed. The Reason for Use, instructions for use, and potential side effects were reviewed for all new medications. The patient's questions regarding all of their medications were answered. The patient was able to verbally demonstrate an understanding of their discharge medications. Medications at Discharge Home Medications Lift Chair #1 ea 12/08/20 diaper,brief,adult,disposable (Adjustable Underwear) #200 ea 09/22/23 cholecalciferol (vitamin D3) 50 mcg (2,000 unit) capsule 25 mcg PO DAILY supplement 12/29/23 thiamine HCl (vitamin B1) 100 mg tablet 100 mg PO DAILY #90 tabs 12/30/23 multivitamin (One Daily Multivitamin tablet) 1 tab PO DAILY #90 tabs 06/02/24 [id number] 24,000-76,000-120,000 unit capsule,delayed rel (Creon) 1 cap PO TID Pancreatic Enzyme 07/30/24 potassium chloride 20 mEq tablet,extended release 20 meq PO BID SUPPLEMENT 07/30/24 spironolactone 25 mg tablet (Aldactone) 25 mg PO DAILY Diuretic 08/05/24 acetaminophen 325 mg tablet 650 mg (2 x 325 mg) PO Q4H PRN PRN Fever, pain - 04/22 #0 tabs 08/11/24 bumetanide 0.5 mg tablet 0.5 mg PO BID 30 days #0 tabs 08/30/24 metoprolol tartrate 25 mg tablet 25 mg PO BID 30 days #0 tabs 08/30/24 aripiprazole 10 mg tablet 10 mg PO DAILY #30 tabs 09/14/24 buspirone 10 mg tablet 10 mg PO TID #90 tabs 09/14/24 folic acid 1 mg tablet 1 mg PO BREAKFAST #90 tabs 09/15/24 midodrine 5 mg tablet 5 mg PO TID #90 tabs 09/15/24 digoxin 250 mcg (0.25 mg) tablet 250 mcg PO DAILY 30 days #30 tabs 09/20/24 albuterol sulfate 90 mcg/actuation aerosol inhaler 2 puff inhalation Q4H PRN wheezing 09/21/24 bisacodyl 5 mg tablet,delayed release 20 mg (4 x 5 mg) PO ONCE #4 tabs 09/21/24 polyethylene glycol 3350 17 gram/dose oral powder 238 g PO ONCE #238 grams 09/21/24 ursodiol 250 mg tablet 250 mg PO BID 09/22/24 pantoprazole 40 mg tablet,delayed release 40 mg PO DAILY #30 tabs 09/27/24
== END 2024-09-27 17:49 | disposition home health service (06) | DRG 432 ==
LOC: ED 09-23 01:46 → PCU 09-23 03:58
PROVIDERS: Anesthesiology; Internal Medicine; Internal Medicine Gastroenterology; Admitting Provider Internal Medicine; Emergency Provider Emergency Medicine; PCP Internal Medicine; Visit Provider Student in an Organized Health Care Education/Training Program
PROC: 0DJ08ZZ Inspection of Upper Intestinal Tract, Via Natural or Artificial Opening Endoscopic (ICD-10-PCS; CPT 43235; principal; 2024-09-24 16:10)
DX: K70.31 Alcoholic cirrhosis of liver with ascites (principal); K85.20 Alcohol induced acute pancreatitis without necrosis or infection; D62 Acute posthemorrhagic anemia; F31.81 Bipolar II disorder; I50.30 Unspecified diastolic (congestive) heart failure; I85.00 Esophageal varices without bleeding; K92.1 Melena; K72.90 Hepatic failure, unspecified without coma; K70.11 Alcoholic hepatitis with ascites; L89.311 Pressure ulcer of right buttock, stage 1; D50.0 Iron deficiency anemia secondary to blood loss (chronic); I11.0 Hypertensive heart disease with heart failure; D69.6 Thrombocytopenia, unspecified; I48.0 Paroxysmal atrial fibrillation; F41.9 Anxiety disorder, unspecified; E87.6 Hypokalemia; I95.1 Orthostatic hypotension; M41.9 Scoliosis, unspecified; R19.5 Other fecal abnormalities; Z74.09 Other reduced mobility; N95.0 Postmenopausal bleeding; R53.81 Other malaise; R04.0 Epistaxis; Z86.16 Personal history of COVID-19; Z87.891 Personal history of nicotine dependence; Z82.62 Family history of osteoporosis; B95.8 Unspecified staphylococcus as the cause of diseases classified elsewhere; Z53.9 Procedure and treatment not carried out, unspecified reason; E66.3 Overweight; Z68.28 Body mass index [BMI] 28.0-28.9, adult; Z86.718 Personal history of other venous thrombosis and embolism; R19.09 Other intra-abdominal and pelvic swelling, mass and lump
CPT/HCPCS: 36415; 49083; 71045; 74177; 76830; 76856; 80048; 80053; 80076; 80162; 80307; 82077; 82274; 82607; 82746; 83605; 83690; 83735; 84100; 84443; 84484; 85025; 85027; 85610; 86850; 86900; 86901; 87631; 88305; 93005; 97116; 97162; 97166; 97530; 97535; 99285; P9047; Q9967; A4216

== ENCOUNTER 2024-09-28 05:02 | Emergency (ER) | payer MEDICARE, MEDICAID, SELFPAY ==
[2024-09-28 05:03] VITALS: BP 122/80; PULSE 110; RESP 18; TEMP 36.5; O2SAT 93; BMI 30.5
--- NOTE | 2024-09-28 05:30 | EX.ED.DYSGE1 ---
HPI History of Present Illness Chief Complaint: Back Narrative Narrative: 64-year-old female past medical history of multiple medical problems presents via EMS for 2 reasons. She states that she wants her nasal packing removed, and also she is having acute on chronic back pain. She usually sees Dr. Romero. She relates history that with pain management, he recently had done injections in her back but she feels that they were in the wrong place because it is not working. She was also given 10 Percocet tablets, which are not helping with her pain. Regarding her nasal packing, a few days prior to her admission to the hospital, she had epistaxis from her right nares. Nasal balloon had been inserted by the ED physician, and she was admitted. She was discharged from the hospital yesterday, on 09/27/2024, approximately 12 hours ago. She states that she was supposed to follow-up with Dr. Frederick with ENT immediately upon her discharge, but her discharge was delayed until after 530 in the office was closed. 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 [facility] Medical History Bipolar II disorder Alcohol use disorder, moderate, dependence Hypertension Alcoholic hepatitis Cirrhosis History of ascites History of cirrhosis Ileus Polycythemia Pressure sore on buttocks Alcohol abuse Generalized weakness Cystocele History of vertebral compression fracture Debility Venous thromboembolism (VTE) prophylaxis provided within 24 hours of arrival Vertebral compression fracture Intractable low back pain Abnormal CT of the chest Anxiety Chronic back pain Osteoporosis Arthritis Compression fracture of thoracic spine, non-traumatic Pancreatitis Urinary urgency Marijuana use Shortness of breath on exertion Leg cramps Seborrheic dermatitis Neck pain Bowel incontinence Urinary incontinence Alcoholic pancreatitis Scalp psoriasis Debility Wears contact lenses Anxiety Walker as ambulation aid Injury of head and neck Difficulty swallowing Non-smoker Pain at injection site Compression fracture Depression Alcohol use Osteoporosis Scoliosis Home Medications ?Medication ?Instructions ?Recorded ?Last Taken ?Type Lift Chair #1 ea 12/08/20 Unknown Rx diaper,brief,adult,disposable #200 ea 09/22/23 Unknown Rx (Adjustable Underwear) cholecalciferol (vitamin D3) 50 25 mcg PO DAILY supplement 12/29/23 09/21/24 07:56 History mcg (2,000 unit) capsule thiamine HCl (vitamin B1) 100 mg 100 mg PO DAILY #90 tabs 12/30/23 09/21/24 07:59 Rx tablet multivitamin (One Daily 1 tab PO DAILY #90 tabs 06/02/24 09/21/24 07:58 Rx Multivitamin tablet) [id number] 1 cap PO TID Pancreatic Enzyme 07/30/24 09/21/24 07:57 History 24,000-76,000-120,000 unit capsule,delayed rel (Creon) potassium chloride 20 mEq 20 meq PO BID SUPPLEMENT 07/30/24 09/22/24 07:58 History tablet,extended release spironolactone 25 mg tablet 25 mg PO DAILY Diuretic 08/05/24 08/26/24 History (Aldactone) acetaminophen 325 mg tablet 650 mg (2 x 325 mg) PO Q4H PRN PRN 08/11/24 Unknown Rx Fever, pain -04/22 #0 tabs bumetanide 0.5 mg tablet 0.5 mg PO BID 30 days #0 tabs 08/30/24 08/26/24 Rx metoprolol tartrate 25 mg tablet 25 mg PO BID 30 days #0 tabs 08/30/24 Unknown Rx aripiprazole 10 mg tablet 10 mg PO DAILY #30 tabs 09/14/24 09/21/24 08:54 Rx buspirone 10 mg tablet 10 mg PO TID #90 tabs 09/14/24 09/21/24 20:55 Rx folic acid 1 mg tablet 1 mg PO BREAKFAST #90 tabs 09/15/24 09/21/24 07:56 Rx midodrine 5 mg tablet 5 mg PO TID #90 tabs 09/15/24 09/22/24 20:58 Rx digoxin 250 mcg (0.25 mg) tablet 250 mcg PO DAILY 30 days #30 tabs 09/20/24 09/22/24 08:56 Rx albuterol sulfate 90 mcg/actuation 2 puff inhalation Q4H PRN wheezing 09/21/24 09/22/24 17:54 History aerosol inhaler bisacodyl 5 mg tablet,delayed 20 mg (4 x 5 mg) PO ONCE #4 tabs 09/21/24 Unknown Rx release polyethylene glycol 3350 17 238 g PO ONCE #238 grams 09/21/24 Unknown Rx gram/dose oral powder ursodiol 250 mg tablet 250 mg PO BID 09/22/24 09/21/24 20:59 History pantoprazole 40 mg tablet,delayed 40 mg PO DAILY #30 tabs 09/27/24 Unknown Rx release Allergy/AdvReac Type Severity Reaction Status Date / Time No Known Allergies Allergy Verified 09/28/24 05:09 Family History Mother Heart disease Osteoporosis Father Lung fibrosis Surgical History History of hip replacement S/P tubal ligation History of esophagogastroduodenoscopy (EGD) Hx of kyphoplasty History of back surgery History of wisdom tooth extraction Hx of total hip arthroplasty S/P kyphoplasty History of tubal ligation Social History household members: none housing: [facility] current occupational status: disabled Smoking Status: Former smoker Tobacco: How many years used: 2 Electronic Cigarette Use: not used how long ago did patient quit smoking: Smoked minimally age [age]. second hand exposure: No alcohol intake: former details: Sober since 06/04/24. substance use type: does not use what type of physical activity do you participate in: none seatbelt use: always do you feel safe at home: Yes additional social history: single ROS ROS ED ROS Narrative Review of systems positive for history of nasal epistaxis, right nares with packing. Positive back pain similar to previous chronic back pain. No fevers or chills. No recent bleeding from nares. EXAM Physical Exam Narrative Exam Narrative: Afebrile. Vital signs noted. Nontoxic-appearing. Cardiovascular examination reveals mild tachycardia. Lungs clear to auscultation bilaterally. Abdomen soft and nontender. Right nares does show a nasal balloon, there is no active bleeding. Inspection of the posterior pharynx shows no evidence of foreign body or posterior pharynx bleeding. Const Vital Signs: 09/28/24 05:03 Temperature 97.7 F L Temperature Source Oral Pulse Rate 110 H Respiratory Rate 18 Blood Pressure 122/80 H Blood Pressure Mean 94 Pulse Ox 93 Oxygen Delivery Method Room Air MDM MDM MDM Narrative Medical decision making narrative: I reviewed the patient's discharge note from yesterday. Dr. Finley had spoken with Dr. Frederick regarding nasal packing removal. I understand their hesitancy and removing the nasal packing while she was hospitalized as they would not be able to stop the bleeding as nasal balloons are not available, nor are any ENT equipment on the medical floor. However, it was stated that she could keep the nasal packing in place for up to a week as she was started on antibiotics in the form of Augmentin to prevent toxic shock. She was to follow-up with Dr. Frederick/Dr. Briones within the next week for nasal packing removal. In discussion with the patient, she was told that I could attempt to remove the nasal packing, but if she experiences rebleeding here in the emergency department, another nasal balloon/packing would need to be inserted. If it were to be removed by otolaryngology, they are better equipped to perform cauterization as they have expertise and other equipment not available in the emergency department. Through shared decision making, patient will leave the packing in place and follow-up with otolaryngology as an outpatient. It is only been 12 hours since her discharge from the hospital. Regarding her acute on chronic back pain, this is the same pain that she has had in the past, and there are no signs of cauda equina so I do not feel that she needs emergent MRI, nor do I feel that she needs any laboratory work or other imaging. She was administered morphine 4 mg intramuscularly. As she is in pain management, she was told that I am unable to write her for any narcotic pain medications and that she should follow-up with her pain management doctor, Dr. Romero. She will follow-up to have her colonoscopy performed today and start her bowel prep upon arrival home. Disposition is discharged home in stable condition. History & Record Review Discussion w/independent historian: Patient Discharge Plan Triage Chief Complaint: Back ED Provider: Simon Pickering Dx/Rx/DC Orders Clinical Impression: Acute on chronic back pain, Right-sided epistaxis Instructions: ED Back Pain (Acute or Chronic), ED Pain Management: Chronic Prescriptions: No Action (DME) Adjustable Underwear Misc See Rx Instructions .ROUTE .MEDSUPPLY Qty: 200 3RF Rx Instructions: As directed. Large cholecalciferol (vitamin D3) 50 mcg (2,000 unit) capsule 25 mcg PO DAILY buspirone 10 mg tablet 10 mg PO TID Qty: 90 5RF aripiprazole 10 mg tablet 10 mg PO DAILY Qty: 30 5RF Creon 24,000-76,000 -120,000 unit capsule,delayed release(DR/EC) 1 cap PO TID Rx Instructions: administer with meals and/or snacks potassium chloride 20 mEq tablet extended release 20 meq PO BID folic acid 1 mg tablet 1 mg PO BREAKFAST Qty: 90 1RF midodrine 5 mg tablet 5 mg PO TID Qty: 90 0RF spironolactone [Aldactone] 25 mg tablet 25 mg PO DAILY acetaminophen 325 mg Tablet 650 mg PO Q4H PRN PRN (Reason: Fever, pain 1-04/22) Qty: 0 0RF albuterol sulfate 90 mcg/actuation HFA aerosol inhaler 2 puff INHALATION Q4H PRN (Reason: wheezing) ursodiol 250 mg tablet 250 mg PO BID pantoprazole 40 mg tablet,delayed release (DR/EC) 40 mg PO DAILY Qty: 30 2RF metoprolol tartrate 25 mg Tablet 25 mg PO BID 30 Days Qty: 0 0RF bumetanide 0.5 mg Tablet 0.5 mg PO BID 30 Days Qty: 0 0RF (DME) Lift Chair See Rx Instructions .Route .MEDSUPPLY Qty: 1 0RF Rx Instructions: As directed thiamine HCl (vitamin B1) 100 mg tablet 100 mg PO DAILY Qty: 90 3RF multivitamin [One Daily Multivitamin] Tablet 1 tab PO DAILY Qty: 90 1RF digoxin 250 mcg (0.25 mg) tablet 250 mcg PO DAILY 30 Days Qty: 30 0RF bisacodyl 5 mg tablet,delayed release (DR/EC) 20 mg PO ONCE Qty: 4 0RF Patient Comments: scope 09/30/2024, has not started yet Rx Instructions: colonoscopy prep polyethylene glycol 3350 17 gram/dose powder 238 g PO ONCE Qty: 238 0RF Patient Comments: scope 09/30/2024; has not used yet Rx Instructions: Mix into 64oz of clear liquid for colonoscopy prep Primary Care Provider: Edward Mc Referrals: Armin Frederick MD [Med Staff - Active Staff] - 1 Day Activity Restrictions/Additional Instructions: Follow-up with Dr. Frederick or Dr. Briones for nasal packing removal. Have your colonoscopy performed today. Follow-up with Dr. Romero regarding your chronic back pain. Print Language: Danish Disposition Disposition: Home, Self Care
[2024-09-28] MEDS: Morphine 4 MG/ML Syringe IM (05:36)
[2024-09-28 05:55] VITALS: BP 103/75; PULSE 102; RESP 18; TEMP 36.7; O2SAT 97
== END 2024-09-28 06:49 | disposition home or self-care (01) ==
PROVIDERS: Emergency Provider Emergency Medicine; PCP Internal Medicine; Visit Provider Emergency Medicine
DX: G89.29 Other chronic pain (principal); F31.81 Bipolar II disorder; M54.9 Dorsalgia, unspecified; I10 Essential (primary) hypertension; Z87.891 Personal history of nicotine dependence
CPT/HCPCS: 96372; 99283

== ENCOUNTER 2024-09-28 13:05 | Day surgery (SDC) | payer MEDICARE, MEDICAID, SELFPAY ==
--- NOTE | 2024-09-27 15:47 | PAT.ANE_ITS ---
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 04/15/22 09:22 Any Problems With Anesthesia No 09/24/24 10:32 Cholinesterase deficiency No 09/24/24 10:32 You/Your Family Experience No 09/24/24 10:32 fever (hyperthermia) with Relationship Recent Exposure to Contagious No 09/24/24 10:32 Disease Does patient have nerve No 09/24/24 10:32 stimulator Patient instructed to have device shut off --Does patient have Pacemaker or ICD? When Was Last Pacemaker Check QUESTION #4 FULL TEXT: You/Your Family Experience fever (hyperthermia) with Anesthesia Last Oral Intake Last Oral intake: Last Oral Intake NPO since Meds taken in AM with sips of water? Meds patient instructed to take am of surgery PONV PONV - laundry helper: PONV - laundry helper Female HX of Motion Sickness HX of N/V After Surgery Non-Smoker Duration of Surgery greater than 60 minutes Number of Risk Factors PONV Score Height & Weight Height & Weight: Anesthesia: Height & Weight Height 5 ft 2 in 09/27/24 13:26 Respiratory Assessment Respiratory Assessment - laundry helper: Respiratory Tract Infection Hx - laundry helper Hx Respiratory Tract Infection No 09/24/24 10:32 STOP Sleep Apnea STOP Sleep Apnea - laundry helper: STOP Sleep Apnea - laundry helper Hx Hypertension No 09/24/24 12:44 Hx Sleep Apnea No 09/24/24 17:10 CPAP No 06/09/24 18:33 BIPAP Do you snore loudly (louder than talking or can be heard Do you often feel tired/ fatigued/ sleepy during daytime? Has anyone observed you stop breathing during sleep? STOP Results QUESTION #5 FULL TEXT : Do you snore loudly (louder than talking or can be heard through closed doors)? 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 Specify any problems Hx of Preganancy in last 3 Months Nurse Filling Out Transfusion & Questions: Date: Time: Patient unable to answer at this time (ie. confused, unrespo /Reproduction History /Reproductive History - laundry helper: /Reproductive Hx- laundry helper Hx Now Gestational Age (in weeks): EDC: Hx Hx Para Hx Section SAB No 09/21/24 10:17 [facility] Medical History Bipolar II disorder Alcohol use disorder, moderate, dependence Hypertension Alcoholic hepatitis Cirrhosis History of ascites History of cirrhosis Ileus Polycythemia Pressure sore on buttocks Alcohol abuse Generalized weakness Cystocele History of vertebral compression fracture Debility Venous thromboembolism (VTE) prophylaxis provided within 24 hours of arrival Vertebral compression fracture Intractable low back pain Abnormal CT of the chest Anxiety Chronic back pain Osteoporosis Arthritis Compression fracture of thoracic spine, non-traumatic Pancreatitis Urinary urgency Marijuana use Shortness of breath on exertion Leg cramps Seborrheic dermatitis Neck pain Bowel incontinence Urinary incontinence Alcoholic pancreatitis Scalp psoriasis Debility Wears contact lenses Anxiety Walker as ambulation aid Injury of head and neck Difficulty swallowing Non-smoker Pain at injection site Compression fracture Depression Alcohol use Osteoporosis Scoliosis Home Medications ?Medication ?Instructions ?Recorded ?Last Taken ?Type Lift Chair #1 ea 12/08/20 Unknown Rx diaper,brief,adult,disposable #200 ea 09/22/23 Unknown Rx (Adjustable Underwear) cholecalciferol (vitamin D3) 50 25 mcg PO DAILY supple ment 12/29/23 09/21/24 07:56 History mcg (2,000 unit) capsule thiamine HCl (vitamin B1) 100 mg 100 mg PO DAILY #90 t abs 12/30/23 09/21/24 07:59 Rx tablet multivitamin (One Daily 1 tab PO DAILY #90 tabs 05/1509/21/24 07:58 Rx Multivitamin tablet) [id number] 1 cap PO TID Pancreatic Enzy me 07/30/24 09/21/24 07:57 History 24,000-76,000-120,000 unit capsule,delayed rel (Creon) potassium chloride 20 mEq 20 meq PO BID SUPPLEMENT 09/22/24 07:58 History tablet,extended release spironolactone 25 mg tablet 25 mg PO DAILY Diuretic 08/26/24 History (Aldactone) acetaminophen 325 mg tablet 650 mg (2 x 325 mg) PO Q4H PRN PRN 08/11/24 Unknown Rx Fever, pain #0 tabs bumetanide 0.5 mg tablet 0.5 mg PO BID 30 days #0 tab s 08/30/24 08/26/24 Rx metoprolol tartrate 25 mg tablet 25 mg PO BID 30 days #0 tabs 08/30/24 Unknown Rx aripiprazole 10 mg tablet 10 mg PO DAILY #30 tabs 0311/0509/21/24 08:54 Rx buspirone 10 mg tablet 10 mg PO TID #90 tabs 09/21/24 20:55 Rx folic acid 1 mg tablet 1 mg PO BREAKFAST #90 tabs 0 09/15/24 09/21/24 07:56 Rx midodrine 5 mg tablet 5 mg PO TID #90 tabs 5 09/22/24 20:58 Rx digoxin 250 mcg (0.25 mg) tablet 250 mcg PO DAILY 30 d ays #30 tabs 09/20/24 09/22/24 08:56 Rx albuterol sulfate 90 mcg/actuation 2 puff inhalation Q 4H PRN wheezing 09/21/24 09/22/24 17:54 History aerosol inhaler bisacodyl 5 mg tablet,delayed 20 mg (4 x 5 mg) PO ONCE #4 tabs 09/21/24 Unknown Rx release polyethylene glycol 3350 17 238 g PO ONCE #238 grams 0 09/21/24 Unknown Rx gram/dose oral powder ursodiol 250 mg tablet 250 mg PO BID 09/22/2409/21 20:59 History pantoprazole 40 mg tablet,delayed 40 mg PO DAILY #30 t abs 09/27/24 Unknown Rx release Allergy/AdvReac Type Severity Reaction Status Date / Time No Known Allergies Allergy Verified 09/27/24 14:50 Family History Mother Heart disease Osteoporosis Father Lung fibrosis Surgical History History of hip replacement S/P tubal ligation History of esophagogastroduodenoscopy (EGD) Hx of kyphoplasty History of back surgery History of wisdom tooth extraction Hx of total hip arthroplasty S/P kyphoplasty History of tubal ligation Social History household members: none housing: skilled nursing current occupational status: disabled Smoking Status: Former smoker Tobacco: How many years used: 2 Electronic Cigarette Use: not used how long ago did patient quit smoking: Smoked minimally age [age]. second hand exposure: No alcohol intake: former details: Sober since 06/04/24. substance use type: does not use what type of physical activity do you participate in: none seatbelt use: always do you feel safe at home: Yes additional social history: single Audit: Pertinent Findings Pertinent Findings EKG Perinent findings: September 25, 2024. Normal sinus rhythm with sinus arrhythmia. ST and T wave abnormality, consider inferior ischemia. ST and T wave abnormality, consider anterior lateral ischemia. ST and T wave changes seen as far back as June 16, 2023. Consult pertinent findings: September 25, 2024. Mere THOMAS. 1. Atrial fibrillation-currently rate controlled. Patient has a history of paroxysmal atrial fibrillation. Current EKG as above normal sinus rhythm. Not on anticoagulation due to GI bleed. Continue present management. Recommendation Anesthesia Recommendation Anesthesia recommendation: OPTIMIZED for anesthesia
[2024-09-28] VITALS (7 sets, daily range): BP systolic 104–112; BP diastolic 62–75; PULSE 87–98; RESP 16–20; TEMP 36.8–37; O2SAT 93–100; BMI 30.7
--- NOTE | 2024-09-28 14:40 | PCM.PRE.AN2 ---
ASA Classification* ASA Classification ASA Classification: 4 (Have esmolol available in room. Keep pain controlled to prevent patient going into Afib w/ RVR again. In sinus rhythm at this time) Assessment & Plan Anesthesia* Anesthesia Assessment Anesthesia Assessment: Discussed sedation and/or anesthesia options, risks, benefits, and alternatives with patient/parents/legal guardian/POA. Questions invited. The patient/parents/legal guardian/POA seems to understand and agrees to proceed with anesthesia plan. Reviewed the physical assessment, medical history, allergy history and patient home medications list prior to surgery/procedure/anesthetic and documented any changes. Performed airway and anesthesia risk assessments. Anesthesia Type Anesthesia Type: General History Source History Obtained from:: Patient and Chart Anesthesia Focused Assessment* Temperature: 98.2 F Pulse Rate: 98 Blood Pressure: 108/62 Respiratory Rate: 16 Pulse Ox: 97 Oxygen Delivery Method: Room Air Airway Assessment Mouth opens: >3 cm Mallampati Score: II Teeth Condition: Intact and Missing (some) Neck Range of motion (ROM): Full ROM Focused Labs Anesthesia Preop lab: CBC WBC 5.2 K/mm3 (4.4-11.0) 09/27/24 03:33 09/27/24 RBC 2.52 M/mm3 (4.2-5.4) L 09/27/24 03:09/27/24 Hgb 8.0 g/dL (12.0-15.0) L 09/27/24 03:33 09/27/24 Hct 24.4 % (37-47) L 09/27/24 03:09/27/24 Plt Count 150 K/mm3 (150-450) 09/27/24 03:33 09/27/24 CHEMISTRY Potassium 3.3 mmol/L (3.3-5.1) 09/27/24 03:33 09/27/24 Sodium 137 mmol/L (133-145) 09/27/24 03:33 09/27/24 Magnesium 1.6 mg/dL (1.5-2.2) 09/23/24 00:35 09/23/24 Phosphorus 3.7 mg/dL (2.7-4.5) 09/23/24 03:45 09/23/24 BUN 4 mg/dL (4-19) 09/27/24 03:33 09/27/24 Creatinine 0.62 mg/dL (0.70-1.20) L 09/27/24 03:33 09/27/24 Glucose 102 mg/dL (70-99) H 09/27/24 03:33 09/27/24 POC Glucose 117 mg/dL (74-106) H 08/06/24 11:39 08/06/24 TSH 0.361 uIU/mL (0.300-4.200) 09/23/24 00:35 09/23/24 COAG PT 20.7 SECONDS (11.7-14.9) H 09/23/24 03:45 09/23/24 Pre-Assessment Diagnosis/Proposed Procedure Planned Operative Procedure(s): Colonoscopy Anesthesia History 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 04/15/22 09:22 Any Problems With Anesthesia No 09/24/24 10:32 Cholinesterase deficiency No 09/24/24 10:32 You/Your Family Experience No 09/24/24 10:32 fever (hyperthermia) with Relationship Recent Exposure to Contagious No 09/28/24 14:12 Disease Does patient have nerve No 09/24/24 10:32 stimulator Patient instructed to have device shut off --Does patient have Pacemaker No 09/28/24 14:12 or ICD? When Was Last Pacemaker Check QUESTION #4 FULL TEXT: You/Your Family Experience fever (hyperthermia) with Anesthesia Last Oral Intake Last Oral intake: Last Oral Intake NPO since 08:00 09/28/24 14:12 Meds taken in AM with sips of Yes 09/28/24 14:12 water? Meds patient instructed to take am of surgery PONV PONV - botany professor: PONV - botany professor Female HX of Motion Sickness HX of N/V After Surgery Non-Smoker Duration of Surgery greater than 60 minutes Number of Risk Factors PONV Score Height & Weight Height & Weight: Anesthesia: Height & Weight Height 5 ft 2 in 09/28/24 14:12 Weight: 76.204 kg 09/28/24 14:12 Body Mass Index (BMI) 30.7 09/28/24 14:12 Respiratory Assessment Respiratory Assessment - botany professor: Respiratory Tract Infection Hx - botany professor Hx Respiratory Tract Infection No 09/24/24 10:32 STOP Sleep Apnea STOP Sleep Apnea - botany professor: STOP Sleep Apnea - botany professor Hx Hypertension No 09/24/24 12:44 Hx Sleep Apnea No 09/24/24 17:10 CPAP No 06/09/24 18:33 BIPAP Do you snore loudly (louder than talking or can be heard Do you often feel tired/ fatigued/ sleepy during daytime? Has anyone observed you stop breathing during sleep? STOP Results QUESTION #5 FULL TEXT : Do you snore loudly (louder than talking or can be heard through closed doors)? Tobacco Use History Tobacco Use History - botany professor: Tobacco Use History - botany professor Tobacco Use Non-smoker 11/08/20 14:25 Smoking Status Former smoker 09/28/24 05:07 Hx Tobacco Use No 09/23/24 03:11 Years Smoking Packs Smoked per Day Smoking Cessation Date was within the last 15 years Hx Smoking Cessation Date 07/14/17 09/28/24 05:07 Hx Smoking Cessation No 09/28/24 05:07 Counseling Hematologic Medial History Hematologic Hx - botany professor: Hematologic Medical Hx - mamma logist Hx of Blood Transfusion Hx of Transfusion in last 3 Months Date of Last Transfusion (if within last 3 months) Ever experience any problems with transfusion(s)? Specify any problems Hx of Preganancy in last 3 Months Nurse Filling Out Transfusion & Questions: Date: Time: Patient unable to answer at this time (ie. confused, unrespo /Reproduction History /Reproductive History - botany professor: /Reproductive Hx- botany professor Hx Now Gestational Age (in weeks): EDC: Hx Hx Para Hx Section SAB No 09/21/24 10:17 [facility] Medical History Bipolar II disorder Alcohol use disorder, moderate, dependence Hypertension Alcoholic hepatitis Cirrhosis History of ascites History of cirrhosis Ileus Polycythemia Pressure sore on buttocks Alcohol abuse Generalized weakness Cystocele History of vertebral compression fracture Debility Venous thromboembolism (VTE) prophylaxis provided within 24 hours of arrival Vertebral compression fracture Intractable low back pain Abnormal CT of the chest Anxiety Chronic back pain Osteoporosis Arthritis Compression fracture of thoracic spine, non-traumatic Pancreatitis Urinary urgency Marijuana use Shortness of breath on exertion Leg cramps Seborrheic dermatitis Neck pain Bowel incontinence Urinary incontinence Alcoholic pancreatitis Scalp psoriasis Debility Wears contact lenses Anxiety Walker as ambulation aid Injury of head and neck Difficulty swallowing Non-smoker Pain at injection site Compression fracture Depression Alcohol use Osteoporosis Scoliosis Home Medications ?Medication ?Instructions ?Recorded ?Last Taken ?Type Lift Chair #1 ea 12/08/20 Unknown Rx diaper,brief,adult,disposable #200 ea 09/22/23 Unknown Rx (Adjustable Underwear) cholecalciferol (vitamin D3) 50 25 mcg PO DAILY supplement 12/29/23 09/21/24 07:56 History mcg (2,000 unit) capsule thiamine HCl (vitamin B1) 100 mg 100 mg PO DAILY #90 tabs 12/30/23 09/21/24 07:59 Rx tablet multivitamin (One Daily 1 tab PO DAILY #90 tabs 06/02/24 09/21/24 07:58 Rx Multivitamin tablet) [id number] 1 cap PO TID Pancreatic Enzyme 07/30/24 09/27/24 History 24,000-76,000-120,000 unit capsule,delayed rel (Creon) potassium chloride 20 mEq 20 meq PO BID SUPPLEMENT 07/30/24 09/28/24 08:00 History tablet,extended release acetaminophen 325 mg tablet 650 mg (2 x 325 mg) PO Q4H PRN PRN 08/11/24 Unknown Rx Fever, pain -04/22 #0 tabs bumetanide 0.5 mg tablet 0.5 mg PO BID 30 days #0 tabs 08/30/24 09/28/24 08:00 Rx metoprolol tartrate 25 mg tablet 25 mg PO BID 30 days #0 tabs 08/30/24 09/28/24 08:00 Rx aripiprazole 10 mg tablet 10 mg PO DAILY #30 tabs 09/14/24 09/27/24 Rx buspirone 10 mg tablet 10 mg PO TID #90 tabs 09/14/24 09/27/24 Rx folic acid 1 mg tablet 1 mg PO BREAKFAST #90 tabs 09/15/24 09/21/24 07:56 Rx midodrine 5 mg tablet 5 mg PO TID #90 tabs 09/15/24 09/28/24 08:00 Rx digoxin 250 mcg (0.25 mg) tablet 250 mcg PO DAILY 30 days #30 tabs 09/20/24 09/28/24 Rx albuterol sulfate 90 mcg/actuation 2 puff inhalation Q4H PRN wheezing 09/21/24 09/22/24 17:54 History aerosol inhaler bisacodyl 5 mg tablet,delayed 20 mg (4 x 5 mg) PO ONCE #4 tabs 09/21/24 Unknown Rx release polyethylene glycol 3350 17 238 g PO ONCE #238 grams 09/21/24 Unknown Rx gram/dose oral powder ursodiol 250 mg tablet 250 mg PO BID 09/22/24 09/27/24 History pantoprazole 40 mg tablet,delayed 40 mg PO DAILY #30 tabs 09/27/24 Unknown Rx release Allergy/AdvReac Type Severity Reaction Status Date / Time No Known Allergies Allergy Verified 09/28/24 14:05 Family History Mother Heart disease Osteoporosis Father Lung fibrosis Surgical History History of hip replacement S/P tubal ligation History of esophagogastroduodenoscopy (EGD) Hx of kyphoplasty History of back surgery History of wisdom tooth extraction Hx of total hip arthroplasty S/P kyphoplasty History of tubal ligation Social History household members: none housing: [facility] current occupational status: disabled Smoking Status: Former smoker Tobacco: How many years used: 2 Electronic Cigarette Use: not used how long ago did patient quit smoking: Smoked minimally age [age]. second hand exposure: No alcohol intake: former details: Sober since 06/04/24. substance use type: does not use what type of physical activity do you participate in: none seatbelt use: always do you feel safe at home: Yes additional social history: single Review of Systems (Anesthesia) ROS Narrative System reviewed and no additional complaints, except as documented. Physical Exam Const alert, oriented x3 and average body habitus Resp normal respiratory effort, normal air movement and clear to auscultation bilaterally Cardio regular rate, regular rhythm, no murmurs and diaphoretic
--- NOTE | 2024-09-28 14:45 | COLBX_PTH ---
PATIENT: PRASHANT MAZARIEGOS LOC: EN U#:[id number] AGE/SX: 64/F ROOM: RE09/28/[address]: Dr. Dwayne Thompson DO : 1960 BED: DIS: 09/28/2024 SPEC #: [id number] RECD: 09/29/24 09:28 STATUS: GIOVANNA REMalcolm #: [id number] FAISAL: 09/28/24 14:[address]: Dwayne Thompson DEPT: SURGICAL PATHOLOGY RECD BY: Mark Polanco ENTERED: 09/29/24 09:28 SP TYPE: COLON BX OT DR: Dr. Edward Mc MD Tissues: A - COLON BIOPSY Procedures: Surgery Specimen Level IV HEADER OPERATION: Colonoscopy with biopsy PRE-OP DIAGNOSIS: Guaiac positive stools, diarrhea TISSUE SUBMITTED: A- Random colon biopsy MICROSCOPIC DIAGNOSIS Random Colon Biopsy: Colonic mucosa with no histopathologic abnormality. Katie Cole M.D., 10/04/24 MICROSCOPIC DESCRIPTION Slides are reviewed. GROSS DESCRIPTION A. Received in fixative is one container labeled with the patient's name and designated Random colon biopsy. The specimen consists of multiple irregular fragments of light elliott soft tissue that in aggregate measure 1.8 x 0.5 x 0.2 cm. The specimen is totally submitted in one cassette. MS/mr 09/29/2024 CPT:25761 , TC:4
--- NOTE | 2024-09-28 15:48 | HP.PCM_ITS ---
HPI - General General Date of Admission: 09/28/24 Date of Service: 09/28/24 Chief Complaint: Diarrhea HPI Narrative PRASHANT MAZARIEGOS, is a 64 F who presents for colonoscopy. She has a past medical history of alcoholic cirrhosis complicated by esophageal varices, ascites, jaundice and intermittent encephalopathy. She was recently diagnosed with atrial fibrillation. She was having diarrhea prior to going in for worsening shortness of breath. She recently underwent large-volume paracentesis. She is coming in to have a colonoscopy today to evaluate lower GI tract for reason for diarrhea. [facility] Medical History (Updated 09/28/24 @ 15:[address] Rice Friend, DO) Diarrhea Bipolar II disorder Alcohol use disorder, moderate, dependence Hypertension Alcoholic hepatitis Cirrhosis History of ascites History of cirrhosis Ileus Polycythemia Pressure sore on buttocks Alcohol abuse Generalized weakness Cystocele History of vertebral compression fracture Debility Venous thromboembolism (VTE) prophylaxis provided within 24 hours of arrival Vertebral compression fracture Intractable low back pain Abnormal CT of the chest Anxiety Chronic back pain Osteoporosis Arthritis Compression fracture of thoracic spine, non-traumatic Pancreatitis Urinary urgency Marijuana use Shortness of breath on exertion Leg cramps Seborrheic dermatitis Neck pain Bowel incontinence Urinary incontinence Alcoholic pancreatitis Scalp psoriasis Debility Wears contact lenses Anxiety Walker as ambulation aid Injury of head and neck Difficulty swallowing Non-smoker Pain at injection site Compression fracture Depression Alcohol use Osteoporosis Scoliosis Home Medications ?Medication ?Instructions ?Recorded ?Last Taken ?Type Lift Chair #1 ea 12/08/20 Unknown Rx diaper,brief,adult,disposable #200 ea 09/22/23 Unknown Rx (Adjustable Underwear) cholecalciferol (vitamin D3) 50 25 mcg PO DAILY supple ment 12/29/23 09/21/24 07:56 History mcg (2,000 unit) capsule thiamine HCl (vitamin B1) 100 mg 100 mg PO DAILY #90 t abs 12/30/23 09/21/24 07:59 Rx tablet multivitamin (One Daily 1 tab PO DAILY #90 tabs 05/1509/21/24 07:58 Rx Multivitamin tablet) [id number] 1 cap PO TID Pancreatic Enzy me 07/30/24 09/27/24 History 24,000-76,000-120,000 unit capsule,delayed rel (Creon) potassium chloride 20 mEq 20 meq PO BID SUPPLEMENT 09/28/24 08:00 History tablet,extended release acetaminophen 325 mg tablet 650 mg (2 x 325 mg) PO Q4H PRN PRN 08/11/24 Unknown Rx Fever, pain -04/22 #0 tabs bumetanide 0.5 mg tablet 0.5 mg PO BID 30 days #0 tab s 08/30/24 09/28/24 08:00 Rx metoprolol tartrate 25 mg tablet 25 mg PO BID 30 days #0 tabs 08/30/24 09/28/24 08:00 Rx aripiprazole 10 mg tablet 10 mg PO DAILY #30 tabs 0311/0509/27/24 Rx buspirone 10 mg tablet 10 mg PO TID #90 tabs 09/27/24 Rx folic acid 1 mg tablet 1 mg PO BREAKFAST #90 tabs 0 09/15/24 09/21/24 07:56 Rx midodrine 5 mg tablet 5 mg PO TID #90 tabs 5 09/28/24 08:00 Rx digoxin 250 mcg (0.25 mg) tablet 250 mcg PO DAILY 30 d ays #30 tabs 09/20/24 09/28/24 Rx albuterol sulfate 90 mcg/actuation 2 puff inhalation Q 4H PRN wheezing 09/21/24 09/22/24 17:54 History aerosol inhaler bisacodyl 5 mg tablet,delayed 20 mg (4 x 5 mg) PO ONCE #4 tabs 09/21/24 Unknown Rx release polyethylene glycol 3350 17 238 g PO ONCE #238 grams 0 09/21/24 Unknown Rx gram/dose oral powder ursodiol 250 mg tablet 250 mg PO BID 09/22/2409/27 History pantoprazole 40 mg tablet,delayed 40 mg PO DAILY #30 t abs 09/27/24 Unknown Rx release Allergy/AdvReac Type Severity Reaction Status Date / Time No Known Allergies Allergy Verified 09/28/24 14:05 Family History Mother Heart disease Osteoporosis Father Lung fibrosis Surgical History History of hip replacement S/P tubal ligation History of esophagogastroduodenoscopy (EGD) Hx of kyphoplasty History of back surgery History of wisdom tooth extraction Hx of total hip arthroplasty S/P kyphoplasty History of tubal ligation Social History household members: none housing: shelter current occupational status: disabled Smoking Status: Former smoker Tobacco: How many years used: 2 Electronic Cigarette Use: not used how long ago did patient quit smoking: Smoked minimally age [age]. second hand exposure: No alcohol intake: former details: Sober since 06/04/24. substance use type: does not use what type of physical activity do you participate in: none seatbelt use: always do you feel safe at home: Yes additional social history: single ROS Constitutional Constitutional: Denies fatigue, fever(s), poor appetite, weight gain or weight loss Gastrointestinal Gastrointestinal: Denies belching, bloating, change in bowel habits, change in stool character, chewing difficulty, coffee ground emesis, constipation, cramping, diarrhea, dyspepsia, dysphagia, early satiety, excessive flatus, fecal incontinence, heartburn, hematemesis, hematochezia, hemorrhoids, loose stools, melena, nausea, odynophagia, rectal bleeding, tenesmus, vomiting or weight changes Vital Signs Vital Signs Vital Signs: 09/28/24 14:12 09/28/24 14:12 09/28/24 14:44 Temperature 98.2 F 98.2 F Temperature Source Temporal Pulse Rate 98 98 Respiratory Rate 16 16 Respiratory Pattern Normal Blood Pressure 108/62 108/62 Blood Pressure Mean 77 Blood Pressure Source Monitor Blood Pressure Position Semi-Fowlers Blood Pressure Location Right Arm Pulse Ox 97 97 Oxygen Delivery Method Room Air Room Air Weight Weight: 168 lb Body Mass Index (BMI) 30.7 Physical Exam Const alert, oriented x3, no apparent distress and healthy appearing General Appearance: cooperative GI normal to inspection, nondistended, normoactive bowel sounds, soft to palpation, non-tender and non-distended Percussion: normal to percussion Rectal Exam: deferred Assessment & Plan Assessment/Plan (1) Guaiac positive stools: (2) Diarrhea: QUALIFIERS: Diarrhea type: due to malabsorption Qualified Code(s): K90.9 - Intestinal malabsorption, unspecified; R19.7 - Diarrhea, unspecified PLAN: Plan # Diarrhea * Patient will undergo colonoscopy to evaluate her lower GI tract for occult positive stools and diarrhea. She was explained alternatives, risk and benefits include understanding bleeding, infection, sepsis, perforation, need for return to . She will have an ASA of 3. #Symptomatic anemia * Patient admitted with a complaint of hypotension at home. She has a blood pressure was also low as the 60s systolic and when she went to the ED her blood pressure was 94/57. Hemoglobin was 8.9. Hemoglobin today is down to 7.4. It was 11.3 on September 15, 2024. * On midodrine on account of history of orthostatic hypotension. * Hydrated with fluids. Type and cross to transfuse to keep hemoglobin more than 7. * Is s/p transfusion of 2 units of packed red blood cells. * hb today is 8.3. #History of cirrhosis: * Due to chronic alcohol abuse * on ursodiol and spironolactone. * INR was elevated at 1.7 on admission which is likely due to impaired synthetic liver function. Not on anticoagulation or antiplatelets. * patient has ascites. * #A-fib: * on metoprolol and digoxin. * not anticoagulated likely due to history of vaginal bleed as per primary team. * On metoprolol and digoxin which have been resumed.
--- NOTE | 2024-09-28 16:22 | OP.CCLET_ITS ---
09/28/2024 Edward Mc MD [address] [place] [address] [place] [address] Re : Colonoscopy procedure for Salima Sigg Dear Dr. Mc This procedure was performed on Saturday, September 28, 2024. My impressions and recommendations are as follows: Impressions : - Preparation of the colon was poor. - Congested mucosa in the entire examined colon. Biopsied. - Diverticulosis in the recto-sigmoid colon. - Stool in the entire examined colon. Recommendations : - Discharge patient to home. - Resume previous diet. - Continue present medications. - Await pathology results. - Repeat colonoscopy because the bowel preparation was poor. My findings are described in the full procedure note, which is enclosed. If I can be of further assistance, please feel free to contact me at . Sincerely, Dwayne Thompson, 09/28/2024 4:21:42 PM This report has been signed electronically.
--- NOTE | 2024-09-28 16:22 | OP.COLON_ITS ---
Patient Name: Salima Whitney Procedure Date: 09/28/2024 3:53 PM Date of : 1960 Age: 64 Procedure: Colonoscopy Indications: Chronic diarrhea, Iron deficiency anemia Providers: Dwayne Thompson DO Medicines: Monitored Anesthesia Care Patient Profile: This is a 64 year old female. Refer to note in patient chart for documentation of history and physical. Last Colonoscopy: several years ago. Complications: No immediate complications. Procedure: Pre-Anesthesia Assessment: - Prior to the procedure, a History and Physical was performed, and patient medications and allergies were reviewed. The patient is competent. The risks and benefits of the procedure and the sedation options and risks were discussed with the patient. All questions were answered and informed consent was obtained. Patient identification and proposed procedure were verified by the physician. Mental Status Examination: alert and oriented. Airway Examination: normal oropharyngeal airway and neck mobility. Respiratory Examination: clear to auscultation. CV Examination: normal. ASA Grade Assessment: III - A patient with severe systemic disease. After reviewing the risks and benefits, the patient was deemed in satisfactory condition to undergo the procedure. The anesthesia plan was to use monitored anesthesia care (MAC). Immediately prior to administration of medications, the patient was re-assessed for adequacy to receive sedatives. The heart rate, respiratory rate, oxygen saturations, blood pressure, adequacy of pulmonary ventilation, and response to care were monitored throughout the procedure. The physical status of the patient was re-assessed after the procedure. After I obtained informed consent, the scope was passed under direct vision. Throughout the procedure, the patient's blood pressure, pulse, and oxygen saturations were monitored continuously. The Colonoscope was introduced through the anus and advanced to the ileocecal valve. The colonoscopy was performed without difficulty. The patient tolerated the procedure well. The quality of the bowel preparation was poor. The ileocecal valve was photographed. Scope In: 4:08:22 PM Scope Withdrawal Time 0 hours 4 minutes 8 seconds Scope Out: 4:15:57 PM Total Procedure Duration Time 0 hours 7 minutes 35 seconds Findings: The perianal and digital rectal examinations were normal. An area of mildly congested mucosa was found in the entire colon. Biopsies were taken with a cold forceps for histology. Verification of patient identification for the specimen was done. Estimated blood loss was minimal. A few small-mouthed diverticula were found in the recto-sigmoid colon. Stool was found in the entire colon. Impression: - Preparation of the colon was poor. - Congested mucosa in the entire examined colon. Biopsied. - Diverticulosis in the recto-sigmoid colon. - Stool in the entire examined colon. Recommendation: - Discharge patient to home. - Resume previous diet. - Continue present medications. - Await pathology results. - Repeat colonoscopy because the bowel preparation was poor. Procedure Code(s): --- Professional --- 88059, Colonoscopy, flexible; with biopsy, single or multiple CPT copyright 2021 [employer]. All rights reserved. The codes documented in this report are preliminary and upon topographic computator review may be revised to meet current compliance requirements. Dwayne Thompson DO 09/28/2024 4:21:42 PM This report has been signed electronically. Number of Addenda: 0 Note Initiated On: 09/28/2024 3:53 PM
--- NOTE | 2024-09-28 16:28 | PCM.POST.ANE ---
Anesthesia: Postop Eval I Current Vital Signs Temperature: 98.4 F Pulse Rate: 92 Blood Pressure: 106/75 Respiratory Rate: 16 Pulse Ox: 98 Oxygen Delivery Method: Room Air Assessment Airway patent: Yes Spontaneous unlabored respirations: Yes Mental status: Awake nausea: No Vomiting: No Anesthesia Complication: No Fluid Hydration Crystalloid volume administer (ml): 10 Total IV fluid infused: 10 Progress Note Anesthesia document: Postop Eval 1 completed: Yes
--- NOTE | 2024-09-28 16:57 | POSTOPAN2_ITS ---
Anesthesia Postop Eval I Sum Postop Eval Completion status Anesthesia document: Postop Eval 1 completed: Yes Anesthesia Postop Eval I Summary Anesthesia Postop Eval I Summary: Anesthesia Postop Eval I: Assessment Summary Airway patent Yes 09/28/24 16:28 DISTRIBUTION ACCOUNTING [email or web address] Spontaneous unlabored Yes 09/28/24 16:28 DISTRIBUTION ACCOUNTING [email or web address] respirations Mental status Awake 09/28/24 16:28 DISTRIBUTION ACCOUNTING [email or web address] nausea No 09/28/24 16:28 DISTRIBUTION ACCOUNTING [email or web address] Vomiting No 09/28/24 16:28 DISTRIBUTION ACCOUNTING [email or web address] Anesthesia Postop Eval I: Fluid Summary Crystalloid volume administer 10 09/28/24 16:28 DISTRIBUTION ACCOUNTING [email or web address] (ml) Colloids volume administered ( ml) Blood Product volume administered (ml) Total IV fluid infused 10 09/28/24 16:28 DISTRIBUTION ACCOUNTING [email or web address] Anesthesia Postop Eval I: Summary Notes Anesthesia Complication No 09/28/24 16:28 DISTRIBUTION ACCOUNTING [email or web address] Anesthesia Complication Comment: Post-operative progress note Anesthesia: Postop Eval II Evaluation Mental status: Awake Pain Level: 0 nausea: No Vomiting: No Complications Anesthesia Complication: No
--- NOTE | 2024-09-28 16:57 | PCM.POSTANE2 ---
Anesthesia Postop Eval I Sum Postop Eval Completion status Anesthesia document: Postop Eval 1 completed: Yes Anesthesia Postop Eval I Summary Anesthesia Postop Eval I Summary: Anesthesia Postop Eval I: Assessment Summary Airway patent Yes 09/28/24 16:28 MANAGER SECURITY AND SAFETY.LMIL Spontaneous unlabored Yes 09/28/24 16:28 MANAGER SECURITY [employer]AFETY.LMIL respirations Mental status Awake 09/28/24 16:28 MANAGER SECURITY [employer] SAFETY.LMIL nausea No 09/28/24 16:28 MANAGER SECURITY [employer]AFETY.LMIL Vomiting No 09/28/24 16:28 MANAGER SECURITY [employer] SAFETY.LMIL Anesthesia Postop Eval I: Fluid Summary Crystalloid volume administer 10 09/28/24 16:28 MANAGER SECURITY [employer] SAFETY.LMIL (ml) Colloids volume administered ( ml) Blood Product volume administered (ml) Total IV fluid infused 10 09/28/24 16:28 MANAGER SECURITY [employer] SAFETY.LMIL Anesthesia Postop Eval I: Summary Notes Anesthesia Complication No 09/28/24 16:28 MANAGER SECURITY AND SAFETY.LMIL Anesthesia Complication Comment: Post-operative progress note Anesthesia: Postop Eval II Evaluation Mental status: Awake Pain Level: 0 nausea: No Vomiting: No Complications Anesthesia Complication: No
[2024-09-28] MEDS: oxyCODONE 5 MG Tablet 10 MG PO (17:15)
--- NOTE | 2024-09-28 17:22 | SUR.PHASEII ---
pt stated on way to [place], that she remembered she had 120 dollars locked up by security when she was admitted 6 days ago. Called Security when pt back to room and ready for discharge, worldwide chief creative officer here with pt phone and walker left in ER apparently earlier today. Resource officer Ariel is to come speak with pt and write up report.
== END 2024-09-28 17:50 | disposition home or self-care (01) ==
LOC: EN 13:08 → AC 13:11
PROVIDERS: PCP Internal Medicine; Referring Provider Internal Medicine; Visit Provider Internal Medicine Gastroenterology
PROC: 0DJD8ZZ Inspection of Lower Intestinal Tract, Via Natural or Artificial Opening Endoscopic (ICD-10-PCS; CPT 45378; principal; 2024-09-28 14:40)
DX: K57.90 Diverticulosis of intestine, part unspecified, without perforation or abscess without bleeding (principal); K70.30 Alcoholic cirrhosis of liver without ascites; F31.81 Bipolar II disorder; I48.91 Unspecified atrial fibrillation; F10.21 Alcohol dependence, in remission; K52.9 Noninfective gastroenteritis and colitis, unspecified; I95.1 Orthostatic hypotension; I10 Essential (primary) hypertension; D50.9 Iron deficiency anemia, unspecified; M54.50 Low back pain, unspecified; G89.29 Other chronic pain; Z79.899 Other long term (current) drug therapy; Z87.891 Personal history of nicotine dependence
CPT/HCPCS: 45380; 88305; A4216; J2405

== ENCOUNTER → 2024-10-05 | Outpatient (CLI) | payer MEDICARE, MEDICAID, SELFPAY ==
--- NOTE | 2024-10-05 09:50 | RAD_ITS ---
EXAM: Thoracic spine x-ray three views CLINICAL HISTORY: pain COMPARISON: Multiple priors most recently 08/20/2023 TECHNIQUE: Three views of the thoracic spine FINDINGS: Multi segmental degenerative changes with vertebroplasty changes seen at numerous levels with persistent and worsening compression deformities when compared to prior exams, for example at approximately T5 there is 75% loss of vertebral body height were previously there was 20% loss of vertebral body height. CT is optimal for characterizing all lesions accurately, as deemed clinically necessary. Severe bone loss. RAD/Thoracic Spine 3 Views IMPRESSION: As above. Reading Location: [facility]
--- NOTE | 2024-10-05 09:50 | RAD_ITS ---
EXAM: XR Lumbosacral Spine, 2 or 3 Views CLINICAL INDICATION: PAIN TECHNIQUE: Frontal and lateral views of the lumbar spine and sacrum. COMPARISON: No relevant prior studies available. FINDINGS: VERTEBRAE: Status post vertebroplasty of L5, L3, L2, L1 and partially visualized T11. Multilevel endplate degenerative changes of L 1 to S1. Moderate facet arthropathy of L3-S1. No acute fracture. Normal alignment. SACRUM/COCCYX: Unremarkable as visualized. No acute fracture. DISC SPACES: No acute findings. No significant narrowing. SOFT TISSUES: Unremarkable. RAD/Lumbar Spine 2 or 3 Views IMPRESSION: Status post vertebroplasty of L5, L3, L2, L1 and partially visualized T11. Reading Location: [facility]
[2024-10-05 10:19] LABS: Absolute Lymphocyte Count 1.89 X10^3/uL (0.83-4.51); Absolute Neutrophil Count 3.3 X10^3/uL (2.0-7.7); Basophil# 0.04 X10^3/uL; Basophil% 0.6 % (0-1); Eosinophil# 0.24 X10^3/uL; Eosinophils% 3.8 % (0-5); Hematocrit 28.3 % (37-47); Hemoglobin 9.3 g/dL (12.0-15.0); Lymphocyte # 1.89 X10^3/ul (0.83-4.51); Lymphocyte % 29.9 % (19-41); Mean Corp Hgb Conc 32.9 g/dL (32-36); Mean Corpuscular Hgb 31.4 pg (27.0-32.0); Mean Corpuscular Volume 95.6 fL (81-99); Mean Platelet Vol. 10.6 fl (6.2-12.0); Monocyte# 0.84 X10^3/uL; Monocyte% 13.3 % (0-10); NRBC Flagged by Analyzer 0 % (0-5); Neutrophil # 3.31 X10^3/uL (2.7-7.7); Neutrophil % 52.2 % (47-70); POSITIVE MORPHOLOGY YES; Platelet Count 256 K/mm3 (150-450); RBC Distribution Width CV 19.2 % (11.6-14.6); RBC Distribution Width SD 67.2 fl (35.1-43.9); Red Blood Count 2.96 M/mm3 (4.2-5.4); White Blood Count 6.3 K/mm3 (4.4-11.0)
[2024-10-05 10:27] LABS: Differential Indicated SCAN CRITERIA MET
[2024-10-05 10:50] LABS: Anisocytosis 2+; Differential Comment SCANNED; Polychromasia RARE
[2024-10-05 13:17] LABS: Iron 33 ug/dL (50-170)
[2024-10-05 13:34] LABS: Magnesium 1.3 mg/dL (1.5-2.2)
[2024-10-06 01:11] LABS: ALB/GLOB Ratio 0.7 RATIO (0.9-2.4); AST(SGOT) 37 U/L (<=31); Alanine Aminotransfer ALT/SGPT 15 U/L (<=34); Alkaline Phosphatase 214 U/L (35-104); Anion Gap 11 (5-15); BUN 14 mg/dL (4-19); BUN/Creat Ratio 8.1 RATIO (10-20); Calcium,Total 8.7 mg/dL (7.6-11.0); Chloride 107 mmol/L (98-108); Creatinine, Serum 1.77 mg/dL (0.70-1.20); EST Glomerular Filtration Rate 32 (>60); Globulin 4.3 g/dL (2.2-4.2); Glucose 111 mg/dL (70-99); Potassium 4.6 mmol/L (3.3-5.1); Protein, Total 7.4 g/dL (5.9-8.4); Sodium Level 138 mmol/L (133-145)
[2024-10-06 01:35] LABS: Ferritin 65 ng/mL (22-378); Thyroid Stim Hormone (TSH) 0.428 uIU/mL (0.300-4.200)
== END | disposition home or self-care (01) ==
LOC: RAD 09:41
PROVIDERS: Internal Medicine Gastroenterology; PCP Internal Medicine; Referring Provider Physician Assistant; Visit Provider Physician Assistant
DX: M54.9 Dorsalgia, unspecified (principal); G89.29 Other chronic pain; R19.7 Diarrhea, unspecified; K90.9 Intestinal malabsorption, unspecified; I95.9 Hypotension, unspecified; D64.9 Anemia, unspecified; I10 Essential (primary) hypertension
CPT/HCPCS: 36415; 72072; 72100; 80053; 82728; 83540; 83735; 84443; 85025

== ENCOUNTER 2024-10-12 16:29 | Emergency (ER) | payer MEDICARE, MEDICAID, SELFPAY ==
[2024-10-12] VITALS (39 sets, daily range): BP systolic 79–113; BP diastolic 32–61; PULSE 56–71; RESP 11–23; TEMP 36.4–37; O2SAT 84–100; BMI 33.3
--- NOTE | 2024-10-12 17:07 | EKG12_ITS ---
Test Reason : Blood Pressure : */* mmHG Vent. Rate : 57 BPM Atrial Rate : * BPM P-R Int : * ms QRS Dur : 110 ms QT Int : 332 ms P-R-T Axes : * 49 241 degrees QTcB Int : 323 ms Junctional rhythm Low voltage QRS Cannot rule out Septal infarct , age undetermined INCOMPLETE LBBB ST & T wave abnormality, consider inferolateral ischemia Abnormal ECG Confirmed by Sj Morales ([id number]), proposal editor LEAH SRINIVASAN ([id number]) on 10/13/2024 7:54:57 AM Referred By: MARÍA ELENA Confirmed By: Sj Morales
--- NOTE | 2024-10-12 17:07 | RAD_ITS ---
PROCEDURE: CHEST 1 VIEW (PORTABLE) 10/12/2024 REASON FOR EXAM: 64-year-old female, SHORTNESS OF BREATH TECHNIQUE: Frontal view of the chest. COMPARISON: Chest radiograph 09/22/2024. FINDINGS: Hardware: Partially visualized prior cement vertebral augmentation. Heart: Cardiac and mediastinal contours are stable. Lungs: Low lung volumes. No focal consolidation or pneumothorax. Moderate right and small left pleural effusions. Bones: Leftward curvature of the thoracic spine. Degenerative changes are identified within the thoracic spine. RAD/Chest 1 View (Portable) IMPRESSION: Moderate right and small left pleural effusions. Reading Location: [id number]
--- NOTE | 2024-10-12 17:09 | ED.VIS.DYS ---
HPI History of Present Illness Chief Complaint: Shortness of Breath Narrative Narrative: 64-year-old female presents via EMS with shortness of breath began at around 8 or 9:00 this morning, approximately 8 hours ago. She states she has had nausea and vomiting as well, and threw up her medications. She wears oxygen on occasion, especially at night, but denies history of COPD. She is on Bumex for suppose a congestive heart failure. States her legs have been swollen worse over the last week. She states she was recently hospitalized as well about 2 weeks ago but cannot remember the reason why. She states her head feels foggy today. Per EMS, she was 89 to 90% on room air on their arrival. She denies any fevers or chills, no cough, no exacerbating or alleviating factors. [facility] Medical History Chronic back pain Atrial fibrillation Guaiac positive stools Melena Chest pain Acute anxiety Epistaxis Cirrhosis of liver with ascites Elevated INR Orthostatic hypotension Blood loss anemia Symptomatic hypotension Postmenopausal bleeding Diarrhea Bipolar II disorder Alcohol use disorder, moderate, dependence Hypertension Alcoholic hepatitis Cirrhosis History of ascites History of cirrhosis Ileus Polycythemia Pressure sore on buttocks Alcohol abuse Generalized weakness Cystocele History of vertebral compression fracture Debility Venous thromboembolism (VTE) prophylaxis provided within 24 hours of arrival Vertebral compression fracture Intractable low back pain Abnormal CT of the chest Anxiety Osteoporosis Arthritis Compression fracture of thoracic spine, non-traumatic Pancreatitis Urinary urgency Marijuana use Shortness of breath on exertion Leg cramps Seborrheic dermatitis Neck pain Bowel incontinence Urinary incontinence Alcoholic pancreatitis Scalp psoriasis Debility Wears contact lenses Anxiety Walker as ambulation aid Injury of head and neck Difficulty swallowing Non-smoker Pain at injection site Compression fracture Depression Alcohol use Osteoporosis Scoliosis Home Medications ?Medication ?Instructions ?Recorded ?Last Taken ?Type Lift Chair #1 ea 12/08/20 Unknown Rx diaper,brief,adult,disposable #200 ea 09/22/23 Unknown Rx (Adjustable Underwear) cholecalciferol (vitamin D3) 50 25 mcg PO DAILY supplement 12/29/23 10/12/24 History mcg (2,000 unit) capsule thiamine HCl (vitamin B1) 100 mg 100 mg PO DAILY #90 tabs 12/30/23 10/12/24 Rx tablet multivitamin (One Daily 1 tab PO DAILY #90 tabs 06/02/24 09/21/24 07:58 Rx Multivitamin tablet) [id number] 1 cap PO TID Pancreatic Enzyme 07/30/24 10/11/24 History 24,000-76,000-120,000 unit capsule,delayed rel (Creon) potassium chloride 20 mEq 20 meq PO BID SUPPLEMENT 07/30/24 10/12/24 History tablet,extended release bumetanide 0.5 mg tablet 0.5 mg PO BID 30 days #0 tabs 08/30/24 10/12/24 Rx metoprolol tartrate 25 mg tablet 25 mg PO BID 30 days #0 tabs 08/30/24 09/28/24 08:00 Rx aripiprazole 10 mg tablet 10 mg PO DAILY #30 tabs 09/14/24 10/12/24 Rx buspirone 10 mg tablet 10 mg PO TID #90 tabs 09/14/24 10/12/24 Rx folic acid 1 mg tablet 1 mg PO BREAKFAST #90 tabs 09/15/24 10/12/24 Rx digoxin 250 mcg (0.25 mg) tablet 250 mcg PO DAILY 30 days #30 tabs 09/20/24 10/12/24 Rx albuterol sulfate 90 mcg/actuation 2 puff inhalation Q4H PRN wheezing 09/21/24 09/22/24 17:54 History aerosol inhaler ursodiol 250 mg tablet 250 mg PO BID 09/22/24 10/12/24 History pantoprazole 40 mg tablet,delayed 40 mg PO DAILY #30 tabs 09/27/24 10/12/24 Rx release meclizine 12.5 mg tablet 12.5 mg PO BID-QID PRN dizziness 10/05/24 10/10/24 History acetaminophen 325 mg tablet 650 mg PO Q4H PRN Fever, pain 10/12/24 10/12/24 History -04/22 gabapentin 300 mg capsule 300 mg PO DAILY 10/12/24 10/12/24 History ibuprofen 200 mg tablet (Addaprin) 400 mg PO Q6H PRN pain 10/12/24 10/11/24 History magnesium 200 mg tablet 400 mg PO DAILY 10/12/24 10/11/24 History midodrine 5 mg tablet 10 mg (2 x 5 mg) PO TID #180 tabs 10/12/24 10/12/24 Rx oxycodone-acetaminophen 5 mg-325 1 tab PO BID PRN pain 10/12/24 10/12/24 History mg tablet Allergy/AdvReac Type Severity Reaction Status Date / Time No Known Allergies Allergy Verified 10/12/24 16:33 Family History Mother Heart disease Osteoporosis Father Lung fibrosis Surgical History History of hip replacement S/P tubal ligation History of esophagogastroduodenoscopy (EGD) Hx of kyphoplasty History of back surgery History of wisdom tooth extraction Hx of total hip arthroplasty S/P kyphoplasty History of tubal ligation Social History household members: none housing: house current occupational status: disabled Smoking Status: Former smoker Tobacco: How many years used: 2 Electronic Cigarette Use: not used how long ago did patient quit smoking: Smoked minimally age [age]. second hand exposure: No alcohol intake: former details: Sober since 06/04/24. substance use type: does not use what type of physical activity do you participate in: none seatbelt use: always do you feel safe at home: Yes additional social history: single ROS ROS ED ROS Narrative Review of systems positive for nausea and vomiting, no abdominal pain. Positive shortness of breath starting approximately 8 to 9 hours ago. No cough. Positive leg swelling. EXAM Physical Exam Narrative Exam Narrative: Afebrile. Vital signs noted. Nontoxic-appearing. Cardiovascular examination reveals a regular rate and rhythm. Lung examination shows occasional expiratory wheezing moving a fair amount of air. Abdomen is soft and nontender without guarding or rebound. Neurological examination is nonfocal and nonlateralizing. Bilateral lower extremity examination reveals symmetric pedal edema +2 without erythema. Const Vital Signs: 10/12/24 16:30 10/12/24 16:34 10/12/24 17:23 Temperature 97.5 F L Temperature Source Oral Pulse Rate 61 Respiratory Rate 15 Respiratory Effort Normal Non-Labored Respiratory Depth Normal Respiratory Pattern Normal Blood Pressure 100/45 L Blood Pressure Mean 63 Pulse Ox 98 96 Oxygen Delivery Method Room Air Room Air Room Air 10/12/24 17:30 10/12/24 17:31 10/12/24 17:41 Temperature Temperature Source Pulse Rate 58 L 58 L 58 L Respiratory Rate 18 18 Respiratory Effort Respiratory Depth Respiratory Pattern Normal Blood Pressure 103/58 L 94/50 L Blood Pressure Mean 73 64 Pulse Ox 98 Oxygen Delivery Method 10/12/24 18:08 10/12/24 19:00 10/12/24 19:12 Temperature 97.5 F L 98.3 F Temperature Source Temporal Oral Pulse Rate 58 L 60 58 L Respiratory Rate 16 18 16 Respiratory Effort Respiratory Depth Respiratory Pattern Blood Pressure 87/53 L 86/49 L 102/47 L Blood Pressure Mean 64 61 65 Pulse Ox 94 98 98 Oxygen Delivery Method Room Air Room Air 10/12/24 20:00 10/12/24 21:00 10/12/24 22:00 Temperature 97.9 F 97.7 F L 98.3 F Temperature Source Oral Temporal Oral Pulse Rate 59 L 63 61 Respiratory Rate 16 17 14 Respiratory Effort Respiratory Depth Respiratory Pattern Blood Pressure 92/55 L 107/37 L 97/52 L Blood Pressure Mean 67 60 67 Pulse Ox 96 92 92 Oxygen Delivery Method Room Air Room Air Room Air 10/12/24 23:00 10/12/24 23:18 Temperature 98.6 F 98.6 F Temperature Source Oral Pulse Rate 59 L 59 L Respiratory Rate 18 18 Respiratory Effort Respiratory Depth Respiratory Pattern Blood Pressure 96/51 L 96/51 L Blood Pressure Mean 66 66 Pulse Ox 98 98 Oxygen Delivery Method MDM MDM MDM Narrative Medical decision making narrative: Differential diagnosis includes but not limited to CHF exacerbation versus COPD versus pneumonia versus pneumothorax. Patient was placed on nasal cannula oxygen. She will be given a DuoNeb aerosolized treatment. Comprehensive workup was pursued including chest x-ray and laboratory work. On my individual interpretation of her chest x-ray, she has a moderately sized right pleural effusion and small left pleural effusion, more consistent with CHF, especially when compared to previous chest x-ray. EKG was obtained and interpreted by myself independently as sinus bradycardia at [address] changes. No STEMI. In review of her laboratory work she has a normal white count of 7.8 and hemoglobin stable at 9.9, I do not feel she requires transfusion, platelet count normal at 215. Of significance is her potassium elevated at 7.9 without hemolysis. CO2 is low at 17 with BUN of 48 and creatinine elevated at 3.73. She is on Bumex. When compared to prior laboratories, she has history of chronic kidney disease, but this is elevated from the 25th when it was 1.7. I do feel this is more of an acute kidney injury. BNP is elevated above 12,000 consistent with CHF. As her potassium is elevated at 7.9, repeat EKG was obtained and it still shows sinus bradycardia at 57 bpm without peaked T waves. Emergent dialysis is not available here. She was started on ED hyperkalemia protocol and given calcium for cardiac protective properties. Of note, she is on digoxin as well. I obtained a digoxin level and it is elevated at 6.1. I discussed patient with the pharmacist and she will be given Digibind at the appropriate dose which was confirmed by pharmacy. As emergent dialysis is unavailable here, I discussed the patient with the [facility] transfer line. She has been accepted to the stepdown unit at [facility]. They wanted and recommended that she receive Kayexalate as well as Lasix 40 mg intravenously. This was administered and BMP rechecked and her potassium is still elevated at 7.0. She had been given albuterol initially, and I had administered insulin and dextrose as well. Per RN, patient has had intermittent hypotension. Hence, Lasix that was recommended was held. Disposition is transferred to [facility] in stable condition. History & Record Review Discussion w/independent historian: Patient Lab Data Attestation: I reviewed the patient's lab results. Labs: Laboratory Results - last 24 hr 10/12/24 10/12/24 10/12/24 17:21 19:05 19:30 WBC 7.8 RBC 3.22 L Hgb 9.9 L Hct 31.3 L MCV 97.2 MCH 30.7 MCHC 31.6 L RDW Std Deviation 71.1 H RDW Coeff of Laxmi 19.9 H Plt Count 215 MPV 10.6 Immature Gran % (Auto) 0.300 Neut % (Auto) 54.5 Lymph % (Auto) 31.2 [place] % (Auto) 11.4 H Eos % (Auto) 2.0 Baso % (Auto) 0.6 Absolute Neuts (auto) 4.3 Absolute Lymphs (auto) 2.44 Nucleated RBC % 0 Differential Comment SCANNED Anisocytosis 2+ Crenated Cell 1+ Sodium 141 Potassium 7.9 H* Chloride 113 H Carbon Dioxide 17.0 L Anion Gap 11 BUN 48 H Creatinine 3.73 H Estim Creat Clear Calc 14.97 L Est GFR (MDRD) Non-Af 13 L BUN/Creatinine Ratio 12.8 Glucose 135 H Calcium 9.1 Total Bilirubin 1.18 AST 36 H ALT 15 Alkaline Phosphatase 214 [place] [address] H Total Protein 8.3 Albumin 3.1 L Globulin 5.1 H Albumin/Globulin Ratio 0.6 L Digoxin 6.22 H* POC Glucose 99 10/12/24 21:18 WBC RBC Hgb Hct MCV MCH MCHC RDW Std Deviation RDW Coeff of Laxmi Plt Count MPV Immature Gran % (Auto) Neut % (Auto) Lymph % (Auto) [place] % (Auto) Eos % (Auto) Baso % (Auto) Absolute Neuts (auto) Absolute Lymphs (auto) Nucleated RBC % Differential Comment Anisocytosis Crenated Cell Sodium 139 Potassium 7.0 H* Chloride 113 H Carbon Dioxide 16.6 L Anion Gap 10 BUN 48 H Creatinine 3.71 H Estim Creat Clear Calc 15.05 L Est GFR (MDRD) Non-Af 13 L BUN/Creatinine Ratio 13.0 Glucose 130 H Calcium 9.7 Total Bilirubin AST ALT Alkaline Phosphatase NT pro BNP II Total Protein Albumin Globulin Albumin/Globulin Ratio Digoxin POC Glucose Radiography Chest X-Ray - ED: 1 View, Read by ED Physician, Read by Radiologist, Right Effusion and Left Effusion Diagnostic Testing: Clinical Impression(s) from Imaging Studies Chest X-Ray 10/12/24 17:07 IMPRESSION: Moderate right and small left pleural effusions. Reading Location: [facility] Management Discussion w/another healthcare provider: Calender Wind Up Helper (Dr. Solorzano) Critical Care Time Critical Care Time: Yes Critical care time (excluding procedures): 30-74 minutes (30), Including time spent:, Discussing w/Patient &/or Family/Pmp Project Manager, Discussing w/Consultants, Arranging Admission or Transfer and Performing Direct Patient Care at Bedside Discharge Plan Triage Chief Complaint: Shortness of Breath ED Provider: Simon Pickering Dx/Rx/DC Orders Clinical Impression: CHF (congestive heart failure), Hypoxia, Hyperkalemia, Digoxin toxicity, Acute kidney injury, Pleural effusion on right Prescriptions: No Action (DME) Adjustable Underwear Misc See Rx Instructions .ROUTE .MEDSUPPLY Qty: 200 3RF Rx Instructions: As directed. Large cholecalciferol (vitamin D3) 50 mcg (2,000 unit) capsule 25 mcg PO DAILY buspirone 10 mg tablet 10 mg PO TID Qty: 90 5RF aripiprazole 10 mg tablet 10 mg PO DAILY Qty: 30 5RF Patient Comments: PT STATES SHE TOOK TODAY BUT THREW UP meclizine 12.5 mg tablet 12.5 mg PO BID-QID PRN (Reason: dizziness) Creon 24,000-76,000 -120,000 unit capsule,delayed release(DR/EC) 1 cap PO TID Rx Instructions: administer with meals and/or snacks potassium chloride 20 mEq tablet extended release 20 meq PO BID folic acid 1 mg tablet 1 mg PO BREAKFAST Qty: 90 1RF albuterol sulfate 90 mcg/actuation HFA aerosol inhaler 2 puff INHALATION Q4H PRN (Reason: wheezing) ursodiol 250 mg tablet 250 mg PO BID pantoprazole 40 mg tablet,delayed release (DR/EC) 40 mg PO DAILY Qty: 30 2RF oxycodone-acetaminophen 5-325 mg tablet 1 tab PO BID PRN (Reason: pain) ibuprofen [Addaprin] 200 mg tablet 400 mg PO Q6H PRN (Reason: pain) acetaminophen 325 mg Tablet 650 mg PO Q4H PRN (Reason: Fever, pain -04/22) gabapentin 300 mg capsule 300 mg PO DAILY Patient Comments: PT AFRAID THIS IS CAUSING HER SYMPTOMS magnesium 200 mg tablet 400 mg PO DAILY metoprolol tartrate 25 mg Tablet 25 mg PO BID 30 Days Qty: 0 0RF Patient Comments: PT UNSURE IF SHE TAKES bumetanide 0.5 mg Tablet 0.5 mg PO BID 30 Days Qty: 0 0RF (DME) Lift Chair See Rx Instructions .Route .MEDSUPPLY Qty: 1 0RF Rx Instructions: As directed thiamine HCl (vitamin B1) 100 mg tablet 100 mg PO DAILY Qty: 90 3RF multivitamin [One Daily Multivitamin] Tablet 1 tab PO DAILY Qty: 90 1RF digoxin 250 mcg (0.25 mg) tablet 250 mcg PO DAILY 30 Days Qty: 30 0RF midodrine 5 mg tablet 10 mg PO TID Qty: 180 2RF Primary Care Provider: Edward Mc Referrals: Edward Mc MD [Primary Care Provider] - Print Language: Irish Disposition Disposition: Acute Care Hospital Discharge Location: [facility]
[2024-10-12] MEDS: Ipratropium/Albuterol Sulfate 3 ML AMPUL.NEB INHALATION (17:24)
[2024-10-12 17:30] LABS: Absolute Lymphocyte Count 2.44 X10^3/uL (0.83-4.51); Absolute Neutrophil Count 4.3 X10^3/uL (2.0-7.7); Basophil# 0.05 X10^3/uL; Basophil% 0.6 % (0-1); Eosinophil# 0.16 X10^3/uL; Hematocrit 31.3 % (37-47); Hemoglobin 9.9 g/dL (12.0-15.0); Lymphocyte # 2.44 X10^3/ul (0.83-4.51); Lymphocyte % 31.2 % (19-41); Mean Corp Hgb Conc 31.6 g/dL (32-36); Mean Corpuscular Hgb 30.7 pg (27.0-32.0); Mean Corpuscular Volume 97.2 fL (81-99); Mean Platelet Vol. 10.6 fl (6.2-12.0); Monocyte# 0.89 X10^3/uL; Monocyte% 11.4 % (0-10); NRBC Flagged by Analyzer 0 % (0-5); Neutrophil # 4.25 X10^3/uL (2.7-7.7); Neutrophil % 54.5 % (47-70); POSITIVE MORPHOLOGY YES; Platelet Count 215 K/mm3 (150-450); RBC Distribution Width CV 19.9 % (11.6-14.6); RBC Distribution Width SD 71.1 fl (35.1-43.9); Red Blood Count 3.22 M/mm3 (4.2-5.4); White Blood Count 7.8 K/mm3 (4.4-11.0)
[2024-10-12 17:31] LABS: Differential Indicated SCAN CRITERIA MET
[2024-10-12 17:57] LABS: Anisocytosis 2+; Crenated RBC 1+; Differential Comment SCANNED
[2024-10-12 18:01] LABS: Pro- Brain NATRIURETIC PEPTIDE 12625 pg/mL (<=900)
[2024-10-12 18:52] LABS: ALB/GLOB Ratio 0.6 RATIO (0.9-2.4); AST(SGOT) 36 U/L (<=31); Alanine Aminotransfer ALT/SGPT 15 U/L (<=34); Albumin, Serum 3.1 g/dL (3.4-4.8); Alkaline Phosphatase 214 U/L (35-104); Anion Gap 11 (5-15); BUN 48 mg/dL (4-19); BUN/Creat Ratio 12.8 RATIO (10-20); Calcium,Total 9.1 mg/dL (7.6-11.0); Chloride 113 mmol/L (98-108); Creatinine, Serum 3.73 mg/dL (0.70-1.20); EST Glomerular Filtration Rate 13 (>60); Estimated Creatinine Clearance 14.97 ml/min (50-250); Globulin 5.1 g/dL (2.2-4.2); Glucose 135 mg/dL (70-99); Potassium 7.9 mmol/L (3.3-5.1); Protein, Total 8.3 g/dL (5.9-8.4); Sodium Level 141 mmol/L (133-145); Total Bilirubin 1.18 mg/dL (0.00-1.30)
--- NOTE | 2024-10-12 18:54 | EKG12_ITS ---
Test Reason : DYSRHYTHMIA Blood Pressure : */* mmHG Vent. Rate : 57 BPM Atrial Rate : 57 BPM P-R Int : 224 ms QRS Dur : 124 ms QT Int : 336 ms P-R-T Axes : * 50 235 degrees QTcB Int : 327 ms Sinus bradycardia with 1st degree A-V block Left bundle branch block Abnormal ECG Confirmed by Sj Morales ([id number]), make up editor LEAH SRINIVASAN ([id number]) on 10/13/2024 7:55:30 AM Referred By: KEELY Confirmed By: Sj Morales
[2024-10-12 19:23] LABS: Bedside Glucose 99 mg/dL (74-106)
--- NOTE | 2024-10-12 19:37 | PCA ---
CALLED [facility] FOR TRANSFER, BARBARA SAID WAIT LISTING. NO BEDS TODAY 4/ AND MOST LIKELY NO BEDS 4/2. PER MD WILL CALL [facility].
[2024-10-12] MEDS: Calcium Gluconate IV 3 GM in 0.9% Normal Saline (100mL Bag) 100 ML IV (20:01)
[2024-10-12] MEDS: Dextrose 10%-Water 250 ML 999 ML IV (20:05)
[2024-10-12] MEDS: Insulin Lispro 10 UNIT in Syringe 0 ML 6 UNIT IV (20:31)
[2024-10-12] MEDS: Sodium Polystyrene Sulfonate 15 GM/60 ML UDC 30 GM PO (21:05)
--- NOTE | 2024-10-12 21:08 | PCA ---
PT ACCEPTED AT [facility] BY HOSPITALIST ME[facility] AT 2049. WAIT BED.
[2024-10-12 21:27] LABS: Digoxin Level 6.22 ng/mL (0.00-2.00)
[2024-10-12 21:56] LABS: Anion Gap 10 (5-15); BUN 48 mg/dL (4-19); Calcium,Total 9.7 mg/dL (7.6-11.0); Carbon Dioxide 16.6 mmol/L (21.0-32.0); Chloride 113 mmol/L (98-108); Creatinine, Serum 3.71 mg/dL (0.70-1.20); EST Glomerular Filtration Rate 13 (>60); Estimated Creatinine Clearance 15.05 ml/min (50-250); Glucose 130 mg/dL (70-99); Sodium Level 139 mmol/L (133-145)
--- NOTE | 2024-10-12 22:06 | PCA ---
PT BED AVAILABLE, 4751 N2N [id number] PHYSICIANS CALLED, ETA 2-3 HRS
[2024-10-12] MEDS: DIGOXIN IMMUNE FAB IV (22:08)
[2024-10-12] MEDS: NORMAL SALINE 0.9% IV (22:08)
--- NOTE | 2024-10-12 23:47 | ED.RN ---
Dr. Pickering notified of BP of
--- NOTE | 2024-10-12 23:53 | ED.RN ---
REPORT CALLED TO MAHNAZSAKSHI APODACA. NO FURTHER QUESTIONS BY THE RECEIVING NURSE AT THIS TIME.
[2024-10-13] VITALS: BP 94/44; PULSE 78; RESP 16; O2SAT 95
--- NOTE | 2024-10-13 00:30 | EKG12_ITS ---
Test Reason : CP Blood Pressure : */* mmHG Vent. Rate : 63 BPM Atrial Rate : 63 BPM P-R Int : 150 ms QRS Dur : 60 ms QT Int : 304 ms P-R-T Axes : 99 57 251 degrees QTcB Int : 311 ms Normal sinus rhythm Cannot rule out Low voltage QRS Septal infarct , age undetermined ST & T wave abnormality, consider inferior ischemia ST & T wave abnormality, consider anterolateral ischemia Abnormal ECG Confirmed by Sj Morales ([id number]), film editor supervisor LEAH SRINIVASAN ([id number]) on 10/13/2024 7:55:52 AM Referred By: KEELY Confirmed By: Sj Morales
--- NOTE | 2024-10-13 00:57 | ED.RN ---
2335: IV LASIX NEVER GIVEN D/T BLOOD PRESSURE AND POTASSIUM LEVELS. AWARE.
== END 2024-10-13 00:58 | disposition short-term general hospital (02) ==
PROVIDERS: Emergency Provider Emergency Medicine; PCP Internal Medicine; Visit Provider Emergency Medicine
DX: E87.5 Hyperkalemia (principal); I13.0 Hypertensive heart and chronic kidney disease with heart failure and stage 1 through stage 4 chronic kidney disease, or unspecified chronic kidney disease; I50.9 Heart failure, unspecified; T46.0X5A Adverse effect of cardiac-stimulant glycosides and drugs of similar action, initial encounter; N17.9 Acute kidney failure, unspecified; N18.9 Chronic kidney disease, unspecified; I95.9 Hypotension, unspecified; R09.02 Hypoxemia; R11.2 Nausea with vomiting, unspecified; Z79.899 Other long term (current) drug therapy; Z87.891 Personal history of nicotine dependence
CPT/HCPCS: 71045; 80048; 80053; 80162; 82962; 83880; 85025; 87631; 93005; 94640; 96365; 96367; 96375; 99285; A4216; J0612; J1162